=== PATIENT | female | born 1980 | race Caucasian/White ===

== ENCOUNTER 2025-05-05 08:16 | Outpatient (REF) | payer BC, SELFPAY | END 2025-05-05 08:17 | disposition home or self-care (01) | LOC: HO.LAB 08:16 | PROVIDERS: PCP Internal Medicine; Visit Provider Nurse Practitioner | DX: G43.709 Chronic migraine without aura, not intractable, without status migrainosus (principal) | CPT/HCPCS: 36415; 85652; 86141 ==

== ENCOUNTER 2025-05-05 08:16 | Outpatient (AMB) | payer BC, SELFPAY ==
--- OUTSIDE RECORDS SUMMARY | 2024-12-22 07:15 | XMS_ITS ---
Author Organization [facility] Address [address] [place] [address] Care Team Providers Care Repair Department Supervisor Name Role Phone CARLOS BARCENAS Unavailable [phone] Encounters Encounter Location Date Provider Diagnosis [facility] [address] [place] [address] 12/22/2024 CARLOS BARCENAS Plan Of Treatment Next Appt Details Provider Name:CARLOS BARCENAS, 05/26/2025 02:45:00 PM, [address], [place], [address], Progress Notes * Glenis MENCHACADOB: 3 (44 yo F)Acc No.[id number]:12/22/2024 Patient: Nettie Glenis SCHMIDT Provider: Josefina MATHEW PA-C :1980 A ge:44 Y S ex:Female Date:12/22/2024 Address:[address] [place], [place] [id number] Subjective: * Chief Complaints: * * Medical History: Objective: * Vitals: Assessment: Plan: * Treatment: * Images: Billing Information: * Visit Code: * Procedure Codes: * Electronic signature of HANNAH BARCENAS PA-C on 05/05/2025 at 08:32 AM EDT Sign off status: Pending * Provider: Josefina MATHEW PA-C Date: 0 12/22/2024 Generated for Mitchel rojo/Tamir/eTransmitting on: 0 05/05/2025 08:32 AM EDT
[2025-05-05 08:28] VITALS: BP 124/82; PULSE 72; RESP 16; O2SAT 98; BMI 28.1
--- NOTE | 2025-05-05 08:28 | MHC.OFFVIS ---
Vital Signs 05/05/25 08:28 Height 5 ft 9 in Weight 190 lb BMI 28.1 BP 124/82 Blood Pressure Location Rt brachial Position Sitting Respiration 16 Pulse 72 Pulse Oximetry (%) 98 Intake Visit Reasons: migraine Bench Hand Machine Required: No Allergies acetaminophen (From Percocet) Allergy (Unknown, Verified 05/05/25 08:29) Unknown oxycodone (From Percocet) Allergy (Unknown, Verified 05/05/25 08:29) Unknown HPI Comments Details: Glenis is a 44-year-old female patient with a past medical history of obesity and anxiety who was presenting to the clinic for a headache evaluation. She tells me that her headaches began at age 16 or 17 however she did start on control shortly thereafter and had no significant headaches for many years. Approximately 1 year ago, she was taken off of her oral control and she began having headaches on a regular basis. She is currently experiencing headaches approximately 5 days per week lasting the majority of the day. Headaches can be severe and can awaken her from sleep. Her pain is generally retro-orbital and occipital and felt as a pounding pain. Headaches can be unilateral but often are bilateral. During the headache when her pain is intense she will experience blurry vision. She does not have any visual auras. She does however have some light sensitivity and nausea during the headaches. She denies any tinnitus or any worsening of her pain with laying down. Headaches are aggravated by any physical activity. In general, her headaches improve when she rests and lies down. She has tried sumatriptan in the past which caused profound nausea. She has been using Excedrin with some improvement of her headaches. She has been using Excedrin 5 days per week on average. She tells me that she has a strong family history of brain aneurysms. Her grandmother and 5 of her grandmother's sister's had aneurysms. She also has aneurysm history on the opposite side of her family. She also has a strong history of autoimmune thyroid disease. Her thyroid studies however have been normal through primary care. Headache characteristics: Time of onset:13-14 years old Location: Retro-orbital and occipital Radiation: Neck Positional component: Layng down helps her headaches Character: Pounding Severity: Can reach 10/10 and awaken her from sleep Duration: We will ask the majority of a 24 hour period Frequency: 5 days per week Acute aggravating factors: Stress and bright lights Acute relieving factors: Rest and dark Associated symptoms:Light sensitivity and nausea Aura: No Headache triggers: Unknown, possibly light Relation to menses: No. Periods have been regular Other related background information: Sleep: Notes that sleep is horrible because headaches awake her from sleep. 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 Glasses rx updated. Wears blue light Last dental visit: Within the last 6 months. Wears a guard manager for clenching History of head injury: No Family planning considerations: No Past medication trials: Sumatriptan- Made her very nauseated Ibuprofen- Works to reduce her headaches Excedrine- Works to reduce her headaches Prior workup: None PFSH Medical History (Updated 05/05/25 @ 09:15 by Tammy Garza CNP) HLD (hyperlipidemia) Migraine Family History (Updated 05/05/25 @ 08:34 by Doris Jarvis [facility]) Mother Thyroid disease Father Thyroid disease Review of Systems Const All systems reviewed & are unremarkable except as noted in HPI and below Physical Exam Vital Signs: Last Vital Signs Pulse 72 05/05/25 08:28 Resp 16 05/05/25 08:28 BP 124/82 05/05/25 08:28 Pulse Ox 98 05/05/25 08:28 BMI result Body Mass Index 28.1 Const General: cooperative, healthy appearing, comfortable and no acute distress Nutritional Appearance: well nourished Orientation/consciousness: patient oriented x3 Limitations: no limitations HEENT Head: Yes normal to inspection, Yes normocephalic and Yes other (Tenderness to the temporalis muscles bilaterally with palpation) Eyes General: appearance normal, both eyes and all related structures Visual Maguire: normal visual maguire by confrontation Alignment and Position: alignment normal Periorbital: periorbital findings normal Eyelids: Yes eyelids normal Conjunctivae: conjunctivae normal Sclerae: sclerae normal Back/Spine/Pelvis Other: Significant bilateral upper trapezius tightening. No obvious trigger points. Neuro General: patient oriented x3 and deep tendon reflexes 2+ bilaterally Cranial nerves: Yes CN's II-XII intact bilaterally and Yes Facial sensation intact/muscles of mastication intact Cognition (Neuro): normal cognition Gait exam (Neuro): Normal gait present Motor exam (neuro): 5/5 motor strength present throughout and no tremor noted Sensory Exam: double simultaneous stimulation for sensation normal Romberg Test: Negative Pupils: Normal pupillary reactivity/response: bilateral Psych Appearance: grossly normal Mental Status: mental status grossly normal Speech and movement: Normal speech and movement present and Clear speech present Affect: normal affect Attitude: cooperative Thought process: Normal thought process present Thought content: Normal thought content present Insight: Good insight present (Psych) Judgement: Good judgement present (Psych) Assessment & Plan Assessment & Plan (1) Worsening headaches: Code(s): R51.9 - Headache, unspecified Category: Medical (2) Chronic migraine without aura without status migrainosus, not intractable: Code(s): G43.709 - Chronic migraine without aura, not intractable, without status migrainosus Category: Medical Plan Glenis is a 44-year-old female patient with a past medical history of obesity and anxiety who was presenting to the clinic for a headache evaluation. Headaches seemingly got worse after coming off of her control which she was on for many years. Her sleep is also quite poor which is also likely playing a role. She also has significant tightness of her upper trapezius muscles which may again be contributing. She has not tolerated sumatriptan well. Excedrin does work for her but only has marginal benefit. We discussed several different options for treatment of headaches including physical therapy, neuromodulator devices, nutraceuticals, and some first-line therapies including tricyclic antidepressants, antihypertensives, and antiepileptics. She would fifst like to try some nutraceuticals options. I will send for a trial of magnesium 400 mg daily and riboflavin 400 mg daily. I will also send a prescription for amitriptyline 10 mg nightly which she would like to try if the magnesium and riboflavin make no difference after 1 month of use. Because she has a strong family history of aneurysm and her headaches are awakening her from sleep. I will obtain imaging including an MRI and MRA. I will also include an MRV to rule out sinus stenosis. IIH can not be ruled out however she did have a recent normal eye exam and her headaches are not significantly positional. She does however have some blurry vision with her headaches and she is a middle aged female with an elevated BMI. Her exam did reveal some tenderness to her temporalis muscles. This may be a result of clenching which she did note in her history. I will however perform inflammatory markers to rule out any possibility of GCA. - MRI and MRA -ESR and CRP -Reduce excedrine use to no more than 3 days per week -start a trial of magnesium oxide 400 mg daily and riboflavin 400 mg daily -if no benefit from nutraceuticals, she will start amitriptyline 10 mg daily -follow up in 2 months or sooner if needed Orders: Orders CRP High Sensitivity Today R51.9 - Headache, unspecified Erythrocyte Sedimentation Rate Today R51.9 - Headache, unspecified Coding Level of Care Code New Pt Level 4 (86749) Diagnoses Worsening headaches R51.9 Chronic migraine without aura without status migrainosus, not intractable G43.709
--- OUTSIDE RECORDS SUMMARY | 2025-05-05 08:32 | XMS_ITS | Patient Health Record ---
Author Organization [facility] [address] Address [address] [place] [address] Care Team Providers Care Emt/Dispatcher Name Role Phone CARLOS BARCENAS Unavailable [phone] KARTHIKVENKATESH Pearson Unavailable [phone] Allergies Allergen (clinical drug ingredient) Drug/Non Drug Allergy documented on EMR Reaction Allergy Type Onset Date Status covid vaccine (uncoded) hives and chest pain Allergy Active Vaccine product containing Influenza virus antigen (medicinal product) flu shot (uncoded) hives Allergy Ac tive acetaminophen / oxycodone Percocet hives Drug Allergy Active Results Component Value Reference Range Notes TESTOSTERONE, TOTAL, MS Reviewed date:09/19/2024 07:49:43 AM Interpretation: Performing Lab:Neeru SAMS/[facility] [address], [id number] Dario Galvez M.D.,PhD Notes/Report: FASTING: YES FASTING:YES TESTOSTERONE, TOTAL, MS 9 2-45 ng/dL For additional information, please refer to http://education.The Price Wizards/faq/ TotalTestosteroneLCMSMSFAQ1 65 (This link is being provided for informational/ educational purposes only.) This test was developed and its analytical performance characteristics have been determined by [facility] [place], [place]. It has not been cleared or approved by the U.S. Food and Drug Administration. This assay has been validated pursuant to the CLIA regulations and is used for clinical purposes. ESTROGEN, TOTAL, SERUM Reviewed date:09/19/2024 07:49:48 AM Interpretation: Performing Lab:Neeru MACDONALD/[facility],[address] [address], Kyles FordEkmibhevkhRD[address] Ruchi Chau MD,PhD,DEDE Notes/Report: FASTING:YES FASTING: YES ESTROGENS, TOTAL, IA 86 Reference Ranges for Total Estrogen: Follicular Phase: 51-601 Luteal Phase: 87-1194 Postmenopausal: < or = 214 VITAMIN D,25-OH,TOTAL,IA Reviewed date:09/16/2024 08:01:36 AM Interpretation: Performing Lab:NLOfidium, [facility] Bola Fowler Notes/Report: FASTING: YES FASTING:YES VITAMIN D,25-OH,TOTAL,IA 21 30-100 ng/mL Vitamin D Status 25-OH Vitamin D: Deficiency: <20 ng/mL Insufficiency: 20 - 29 ng/mL Optimal: > or = 30 ng/mL For 25-OH Vitamin D testing on patients on D2-supplementation and patients for whom quantitation of D2 and D3 fractions is required, the QuestAssureD(TM) 25-OH VIT D, (D2,D3), LC/MS/MS is recommended: order code 40162 (patients >2yrs). See Note 1 Note 1 For additional information, please refer to http://education.MEDOP/faq/OTL019 (This link is being provided for informational/ educational purposes only.) VITAMIN B12 Reviewed date:09/18/2024 07:43:06 AM Interpretation: Performing Lab:Oncothyreon, [facility] Bola Fowler Notes/Report: FASTING:YES FASTING: YES VITAMIN B12 932 022-3104 pg/mL CBC (INCLUDES DIFF/PLT) Reviewed date:09/16/2024 08:01:36 AM Interpretation: Performing Lab:Oncothyreon, [facility] Bola Fowler Notes/Report: FASTING:YES FASTING: YES WHITE BLOOD CELL COUNT 8.1 3.8-10.8 Thousand/ uL RED BLOOD CELL COUNT 4.05 3.80-5.10 Million/uL HEMOGLOBIN 11.6 11.7-15.5 g/dL HEMATOCRIT 35.2 35.0-45.0 % MCV 86.9 80.0-100.0 fL MCH 28.6 27.0-33.0 pg MCHC 33.0 32.0-36.0 g/dL For adults, a slight decrease in the calculated MCHC value (in the range of 30 to 32 g/dL) is most likely not clinically significant; however, it should be interpreted with caution in correlation with other red cell parameters and the patient's clinical condition. RDW 12.1 11.0-15.0 % PLATELET COUNT 254 140-400 Thousand/uL MPV 10.6 7.5-12.5 fL ABSOLUTE NEUTROPHILS 6197 4734-8458 cells/uL ABSOLUTE LYMPHOCYTES 5193 560-4832 cells/uL ABSOLUTE MONOCYTES 405 200-950 cells/uL ABSOLUTE EOSINOPHILS 81 15-500 cells/uL ABSOLUTE BASOPHILS 41 0-200 cells/uL NEUTROPHILS 76.5 LYMPHOCYTES 17.0 MONOCYTES 5.0 EOSINOPHILS 1.0 BASOPHILS 0.[address] METABOLIC PANE L Reviewed date:09/16/2024 08:01:36 AM Interpretation: Performing Lab:NL2, [facility] [address] [place], [place] [address] Bola Fowler Notes/Report: FASTING:YES FASTING: YES GLUCOSE 95 65-99 mg/dL Fasting reference interval UREA NITROGEN (BUN) 24 7-25 mg/dL CREATININE 0.65 0.50-0.99 mg/dL EGFR 113 > OR = 60 mL/min/1.73m2 BUN/CREATININE RATIO SEE NOTE: 6-22 (calc) Not Reported: BUN and Creatinine are within reference range. SODIUM 137 135-146 mmol/L POTASSIUM 4.2 3.5-5.3 mmol/L CHLORIDE 103 98-110 mmol/L CARBON DIOXIDE 25 20-32 mmol/L CALCIUM 8.8 8.6-10.2 mg/dL PROTEIN, TOTAL 6.4 6.1-8.1 g/dL ALBUMIN 4.1 3.6-5.1 g/dL GLOBULIN 2.3 1.9-3.7 g/dL (calc) ALBUMIN/GLOBULIN RATIO 1.8 1.0-2.5 (calc) BILIRUBIN, TOTAL 0.3 0.2-1.2 mg/dL ALKALINE PHOSPHATASE 38 31-125 U/L AST 19 10-30 U/L ALT 13 6-29 U/L IRON, TIBC AND FERRITIN PANE L Reviewed date:09/16/2024 08:01:36 AM Interpretation: Performing Lab:KATY2, [facility] [address] Mariondacia Waggoner Janeth Notes/Report: FASTING:YES FASTING: YES IRON, TOTAL 70 40-190 mcg/dL IRON BINDING CAPACITY 351 250-450 mcg/dL (heaven c) % SATURATION 20 16-45 % (calc) FERRITIN 37 16-232 ng/mL LIPID PANEL, STANDARD Reviewed date:09/16/2024 08:01:36 AM Interpretation: Performing Lab:NL2, [facility] [facility] Rosaline [facility] Notes/Report: FASTING:YES FASTING: YES CHOLESTEROL, TOTAL 240 <200 mg/dL HDL CHOLESTEROL 64 > OR = 50 mg/dL TRIGLYCERIDES 126 <150 mg/dL LDL-CHOLESTEROL 151 Reference range: <100 Desirable range <100 mg/dL for primary prevention; <70 mg/dL for patients with CHD or diabetic patients with > or = 2 CHD risk factors. LDL-C is now calculated using the Bj-Anastacia calculation, which is a validated novel method providing better accuracy than the Friedewald equation in the estimation of LDL-C. Bj SALGUERO et al. JOSE A. 2013;310(19): 5522-4523 (http://education.Zigabid.com/faq/KKS706) CHOL/HDLC RATIO 3.8 <5.0 (calc) NON HDL CHOLESTEROL 176 <130 mg/dL (calc) For patients with diabetes plus 1 major ASCVD risk factor, treating to a non-HDL-C goal of <100 mg/dL (LDL-C of <70 mg/dL) is considered a therapeutic option. T3, FREE Reviewed date:09/16/2024 08:01:36 AM Interpretation: Performing Lab:KATY2, [facility] Marion Rosaline Han Notes/Report: FASTING:YES FASTING: YES T3, FREE 3.3 2.3-4.2 pg/mL TSH Reviewed date:09/16/2024 08:01:36 AM Interpretation: Performing Lab:NL2, [facility] [place] [id number] [place] [address] Rosaline [facility] Notes/Report: FASTING:YES FASTING: YES TSH 2.16 Reference Range > or = 20 Years 0.40-4.50 Ranges First trimester 0.26-2.66 Second trimester 0.55-2.73 Third trimester 0.43-2.91 T4, FREE Reviewed date:09/16/2024 08:01:36 AM Interpretation: Performing Lab:NL2, [facility] [place] [id number] Notes/Report: FASTING:YES FASTING: YES T4, FREE 1.1 0.8-1.8 ng/dL DHEA SULFATE Reviewed date:09/16/2024 08:01:36 AM Interpretation: Performing Lab:NL2, [facility] [place] [id number] [place] [address] Notes/Report: FASTING:YES FASTING: YES DHEA SULFATE 48 15-205 mcg/dL HS CRP Reviewed date:09/16/2024 08:01:36 AM Interpretation: Performing Lab:NL2, [facility] [address] Notes/Report: FASTING:YES FASTING: YES HS CRP 5.3 Reference Range Optimal <1.0 Jealberta PS et al. Endocr Pract.2017;23(Suppl 2):1-87. For ages >17 Years: hs-CRP mg/L Risk According to AHA/CDC Guidelines <1.0 Lower relative cardiovascular risk. 1.0-3.0 Average relative cardiovascular risk. 3.1-10.0 Higher relative cardiovascular risk. Consider retesting in 1 to 2 weeks to exclude a benign transient elevation in the baseline CRP value secondary to infection or inflammation. >10.0 Persistent elevation, upon retesting, may be associated with infection and inflammation. Aiden TA, Torin GA, Stone RW, et al. Markers of inflammation and cardiovascular disease: application to clinical and public health practice: A statement for healthcare professionals from the Centers for Disease Control and Prevention and the [place] [employer] Association. Circulation 2003; 107(3): 499-511. ABHAY SCREEN, IFA, W/REFL TITE R AND PATTERN Reviewed date:09/18/2024 04:03:26 PM Interpretation: Performing Lab:NL2, [facility] [address] [facility] Bola Fowler Notes/Report: FASTING:YES FASTING: YES ABHAY SCREEN, IFA NEGATIVE NEGATIVE ABHAY IFA is a first line screen for detecting the presence of up to approximately 150 autoantibodies in various autoimmune diseases. A negative ABHAY IFA result suggests an ABHAY-associated autoimmune disease is not present at this time, but is not definitive. If there is high clinical suspicion for Sjogren's syndrome, testing for anti-SS-A/Ro antibody should be considered. Anti-Kamila-1 antibody should be considered for clinically suspected inflammatory myopathies. AC-0: Negative International Consensus on ABHAY Patterns (https://doi.org/10.1515/cc xd-3387-9582) For additional information, please refer to http://education.MEDOP/faq/SVQ162 (This link is being provided for informational/ educational purposes only.) Reason For Referral Reason evaluate & treat m ay benefit from cortisone injection Diagnosis 1 Tendinopathy (M67.90 ) Diagnosis 2 Degenerative disc di sease, thoracic (M51.34) Referral Organization [facility] KELLY CABALLERO Referring Provider First Name CARLOS Referring Provider Last Name SWAPNA Referring Provider Speciality Internal M edicine Referred Provider Specialty Orthopedic S urgery General Notes Zara Serrano 12/01 03:18:54 PM > form filled out and faxed over [employer]ilango Hanson.[phone], [phone] Clinical Notes Halie Mc 2024 09:41:59 AM >Scheduled 01/01/25 at 145PM Eliane Brown in [place]. Referral Priority Routine Reason Migraines Diagnosis 1 Episodic migraine (G 43.909) Referral Organization [facility] KELLY CABALLERO Referring Provider First Name CARLOS Referring Provider Last Name SWAPNA Referring Provider Speciality Internal M edicine Referred Provider Specialty Neurology General Notes Please refer to [facility], [address] [place] [address], [address], [place] [address], [phone], [phone] Clinical Notes Graciela Aguilera 07/2025 10:15:09 AM > pt requesting a call once referral sent.Alexandru Earl Adam 04/23/2025 03:18:56 PM > I called pt, she was booked on may 05 Referral Priority Stat Reason Evaluate & Treat W art of left hand, non-healing Diagnosis 1 Wart of hand (B07.9) Referral Organization [facility]ALLERO Referring Provider First Name CARLOS Referring Provider Last Name SWAPNA Referring Provider Speciality Internal M edicine Referred Provider Specialty Dermatology General Notes Margi Salter 0 04/13/2025 02:27:07 PM > Referral to [facility], p. [phone], f. [phone] Referral Priority Routine Medications Medication SIG (Take, Route, Frequency, Duration) Notes Start Date End Date Status Escitalopram Oxalate 5 MG TAKE 1 TABLET BY MOUTH EVERY DAY; Duration: 90 Active Wegovy 1 MG/0.5ML 1 mg; Duration: 30 days Active SUMAtriptan Succinate 25 MG 25 mg prn, additional dose 2 hours later prn Orally daily; Duration: 15 days 06/10/2024 Active Rosuvastatin Calcium 10 MG 1 tablet Orally Once a day; Duration: 90 days Active Contrave 8-90 MG 2 tablets Orally Twi ce a day; Duration: 30 days 11/17/2024 Active Omeprazole 40 MG TAKE 1 CAPSULE BY MO UT EVERY DAY 30 MINUTES BEFORE MORNING MEAL FOR 90 DAYS; Duration: 90 Active Wegovy 0.5 MG/0.5ML INJECT 0.5 MG SUBCUTANEOUSLY ONCE WEEKLY; Duration: 84 Active Social History Tobacco Use: Social History Observation Description Date Details (start date - stop date) Never Smoker NA - NA Tobacco Use/Smoking Question Answer Notes Are you a nonsmoker Section Notes: Tob: denies current use alcohol: socially drug: denies caffeine: coffee daily exercise: enjoys 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: denies 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 alcohol: socially drug: denies caffeine: coffee daily exercise: enjoys 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: denies current use alcohol: socially drug: denies caffeine: coffee daily exercise: enjoys 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: denies current use alcohol: socially drug: denies caffeine: coffee daily exercise: enjoys 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: denies current use alcohol: socially drug: denies caffeine: coffee daily exercise: enjoys walking 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 Tob: denies current use alcohol: socially drug: denies caffeine: coffee daily exercise: enjoys walking 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 Tob: denies current use alcohol: socially drug: denies caffeine: coffee daily exercise: enjoys walking 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 Tob: denies current use alcohol: socially drug: denies caffeine: coffee daily exercise: enjoys 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: denies current use alcohol: socially drug: denies caffeine: coffee daily exercise: enjoys 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: denies current use alcohol: socially drug: denies caffeine: coffee daily exercise: enjoys 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: denies current use alcohol: socially drug: denies caffeine: coffee daily exercise: enjoys 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: denies current use alcohol: socially drug: denies caffeine: coffee daily exercise: enjoys 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: denies current use alcohol: socially drug: denies caffeine: coffee daily exercise: enjoys 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: denies current use alcohol: socially drug: denies caffeine: coffee daily exercise: enjoys 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: denies current use alcohol: socially drug: denies caffeine: coffee daily exercise: enjoys 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: denies current use alcohol: socially drug: denies caffeine: coffee daily exercise: enjoys walking 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 Tob: denies current use alcohol: socially drug: denies caffeine: coffee daily exercise: enjoys walking 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 Tob: denies current use alcohol: socially drug: denies caffeine: coffee daily exercise: enjoys walking 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 Tob: denies current use alcohol: socially drug: denies caffeine: coffee daily exercise: enjoys walking 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 Tob: denies current use alcohol: socially drug: denies caffeine: coffee daily exercise: enjoys 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: denies current use alcohol: socially drug: denies caffeine: coffee daily exercise: enjoys 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: denies 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 use alcohol: socially drug: denies caffeine: coffee daily exercise: enjoys walking 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[employer] Problems Problem Type SNOMED Code ICD Code Onset Dates Problem Status W/U Status Risk Notes Problem Vitamin D deficiency (37505156) Vitamin D deficiency, unspecified (E55.9) Active confirmed Problem Overweight (414553457) Overweight (E66.3) Active confirmed Problem Obesity (601958041) Other obesity (E66.8) Active confirmed Problem Mixed hyperlipidemia (130397298) Mixed hyperlipidemia (E78.2) Active confirmed Problem Shoulder joint pain (578569181) Shoulder pain, unspecified chronicity, unspecified laterality (M25.519) Active confirmed Problem Hyperlipidaemia (80729178) Hyperlipidemia, unspecified hyperlipidemia type (E78.5) Active confirmed Problem Shoulder joint pain (215074236) Right shoulder pain, unspecified chronicity (M25.511) Active confirmed Problem Acquired hypothyroidism (792961265) Acquired hypothyroidism (E03.9) Active confirmed Problem Anxiety (19569402) Anxiety (F41.9) Active confi rmed Problem Hyperlipoproteinemia (8343560) 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) Active confirmed Problem Vitamin D deficiency (02606708) Vitamin D deficiency (E55.9) Active confirmed Problem Alopecia (00858251) Hair loss (L65.9) Active co nfirmed Problem Gastroesophageal reflux disease without esophagitis (046499709) Gastroesophageal reflux disease without esophagitis (K21.9) Active confirmed Problem Obesity (948258775) Obesity (BMI 30-39.9) (E66.9) Active confirmed Problem Obese class I (656595963902477) BMI 33.0-33.9,adult (Z68.33) Active confirmed Problem BMI 30+ - obesity (653076200) BMI 32.0-32.9,adult (Z68.32) Active confirmed Problem Degeneration of thoracic intervertebral disc (87609468) Degenerative disc disease, thoracic (M51.34) Active confirmed Problem Vitamin B>12< deficiency anaemia (93144755) Anemia due to vitamin B12 deficiency, unspecified B12 deficiency type (D51.9) Active confirmed Problem Body mass index 30.0 0 to 34.99 (371630131494207) BMI 31.0-31.9,adult (Z68.31) Active confirmed Problem Body mass index 30+ - obesity (543842500) BMI 30.0-30.9,adult (Z68.30) Active confirmed Problem Tension-type headach e (705547072) Acute intractable tension-type headache (G44.201) Active confirmed Problem Gastroesophageal reflux disease (990348277) GERD (gastroesophageal reflux disease) (K21.9) Active confirmed Problem Hyperlipidemia (03633301) Hyperlipidemia (E78.5) Active confirmed Problem Episodic migraine (784879036678440) Episodic migraine (G43.909) Active confirmed Problem Hypophosphatemia (6041306) Hypophosphatemia (E83.39) Active confirmed Problem Laboratory test result abnormal (680166727) Low liver alkaline phosphatase level (R74.8) Active confirmed Problem Tendinopathy (64685466) Tendinopathy (M67.90) Active confirmed Vital Signs Heart Rate 102 /min 04/13/2025 Oximetry 98 % 04/13/2025 Blood pressure diastolic 88 mm Hg 04/13/2025 Height 69 in 04/13/2025 Blood pressure systolic 132 mm Hg 04/13/2025 Weight 221.7 lbs 04/13/2025 BMI 32.74 kg/m2 04/13/2025 Encounters Encounter Location Date Provider Diagnosis [facility] [address] [place], [place] 05/08/2024 CARLOS BARCENAS BMI 29.0-29.9,adult Z68.29 ; Overweight E66.3 ; Gastroesophageal reflux disease without esophagitis K21.9 ; Anxiety F41.9 ; Nutritional counseling Z71.3 and Mixed hyperlipidemia E78.[address] [place] [address] 05/14/2024 VENKATESH ANGELES Acute intractable tension-type headache G44.201 and Acute right otitis media H66.[address] [place] [address] 06/10/2024 CARLOS BARCENAS Overweight E66.3 ; Wellness examination Z00.00 ; BMI 29.0-29.9,adult Z68.29 ; Gastroesophageal reflux disease without esophagitis K21.9 ; Anxiety F41.9 ; Nutritional counseling Z71.3 ; Mixed hyperlipidemia E78.2 ; Pain, joint, shoulder, right M25.511 and Episodic migraine G43.[address] [address] 07/28/2024 CARLOS BARCENAS Overweight E66.3 ; B IA 29.0-29.9,adult Z68.29 ; Gastroesophageal reflux disease without esophagitis K21.9 ; Anxiety F41.9 ; Mixed hyperlipidemia E78.2 ; Pain, joint, shoulder, right M25.511 ; Episodic migraine G43.909 and Nutritional counseling Z71.[address] [address] 09/10/2024 CARLOS BARCENAS Overweight E66.3 ; B IA 29.0-29.9,adult Z68.29 ; Anxiety F41.9 ; Mixed hyperlipidemia E78.2 ; Pain, joint, shoulder, right M25.511 ; Episodic migraine G43.909 ; Nutritional counseling Z71.3 ; Hair loss L65.9 and Hyperlipidemia, unspecified hyperlipidemia type E78.[address] [address] 11/17/2024 CARLOS BARCENAS Anxiety F41.9 ; Pain , joint, shoulder, left M25.512 ; Mixed hyperlipidemia E78.2 ; Episodic migraine G43.909 ; Nutritional counseling Z71.3 ; Hair loss L65.9 ; Hyperlipidemia, unspecified hyperlipidemia type E78.5 and BMI 32.0-32.9,adult Z68.[address] [address] 12/24/2024 CARLOS BARCENAS Obesity (BMI 30-39.9 ) E66.9 ; BMI 33.0-33.9,adult Z68.33 ; Pain, joint, shoulder, left M25.512 ; Anxiety F41.9 ; Mixed hyperlipidemia E78.2 ; Episodic migraine G43.909 ; Nutritional counseling Z71.3 ; Hair loss L65.9 and Encounter for examination of blood pressure without abnormal findings Z01.[address] [place] [address] 03/04/2025 CARLOSMaster BARCENAS Obesity (BMI 30-39.9 ) E66.9 ; BMI 33.0-33.9,adult Z68.33 ; Pain, joint, shoulder, left M25.512 ; Anxiety F41.9 ; Mixed hyperlipidemia E78.2 ; Episodic migraine G43.909 ; Nutritional counseling Z71.3 ; Hair loss L65.9 and Encounter for examination of blood pressure without abnormal findings Z01.[address] [place] [address] 04/13/2025 CARLOS BARCENAS Obesity (BMI 30-39.9 ) E66.9 ; BMI 32.0-32.9,adult Z68.32 ; Pain, joint, shoulder, left M25.512 ; Anxiety F41.9 ; Mixed hyperlipidemia E78.2 ; Episodic migraine G43.909 ; Nutritional counseling Z71.3 ; Hair loss L65.9 and Encounter for examination of blood pressure without abnormal findings Z01.30 [facility] [address] 05/14/2024 CARLOS BARCENAS [facility] [address] 06/10/2024 CARLOS BARCENAS [facility] [address] [place] [address] 07/07/2024 CARLOS BARCENAS Overweight E66.3 [facility] [address] [facility] [address] [place] [address] 07/18/2024 CARLOS BARCENAS Gastroesophageal ref lux disease without esophagitis K21.9 [facility] [address] CARL[facility] [address] [place] [address] 07/28/2024 CARLOSMaster BARCENAS [facility] [address] [place] [address] 09/08/2024 CARLOS BARCENAS [facility] [address] [place] [address] 09/16/2024 CARLOS BARCENAS [facility] [address] [address] 11/17/2024 CARLOS BARCENAS [facility] [address] [place] [address] 11/17/2024 CARLOS BARCENAS Shoulder pain, unspe cified chronicity, unspecified laterality M25.[address] [place] [address] 02/02/2025 CARLOS BARCENAS [facility] [address] [place] [address] 02/24/2025 CARLOS BARCENAS [facility] [address] [place] [address] 03/31/2025 CARLOS BARCENAS [facility] [address] [place] [address] 04/13/2025 CARLOS BARCENAS [facility] [address] [place] [address] 04/17/2025 CARLOS BARCENAS [facility] [address] [place] [address] 04/23/2025 CARLOS BARCENAS Obesity (BMI 30-39.9 ) E66.9 [facility] [address] [place] [address] 05/04/2025 CARLOS BARCENAS [facility] [address] [place] [address] 11/14/2024 CARLOS BARCENAS [facility] [address] [place] [address] 02/02/2025 CARLOS BARCENAS [facility] [address] [place] [address] 02/02/2025 CARLOS BARCENAS [facility] [address] [place] [address] 02/02/2025 CARLOS BARCENAS [facility] [address] [place] [address] 02/02/2025 CARLOS BARCENAS [facility] [address] [place] [address] 02/02/2025 CARLOS BARCENAS [facility] [address] [place] [address] 02/02/2025 CARLOS BARCENAS [facility] [address] [place] [address] 02/02/2025 CARLOS BARCENAS Assessments Encounter Date Diagnosis (ICD Code) Assessment Notes Treatment Notes Treatment Clinical Notes Section Notes 05/08/2024 BMI 29.0-29.9,adult (ICD-10 - Z68.29) 10/03/22: Weight 211, BMI 31.16- educated extensively on lifestyle modifications including high-protein, low carbohydrate, healthy fat, exercise, water intake, sleep hygiene, and stress relief. Patient will work on life so modifications of the next four weeks. Interested in weight loss medications. Start with Topamax 25 mg. Patient educated cannot drink alcohol on this medication. Most recent labs reviewed showing hyperlipidemia, without any insulin/diabetes concern. Patient educated on fish oil, diet, exercise. At next visit, will obtain EKG, and start phentermine 15 mg if EKG without concern. No concern for at this time. 10/31/22: weight 212, BMI 31.3- educated on lifestyle modifications. Patient went to [place], and then went to [place] and states that she has been traveling a lot and drinking more than usual. She is ready to get back on track. She has been walking more recently and focusing on portion control as well as eating earlier in the evening. She does feel some appetite suppression on metformin but is interested in starting an additional medication. She did not tolerate Topamax well. EKG's office today within normal limits. Will start phentermine 15 mg. Patient educated on side effects as well as proper use. Will follow-up in four weeks, sooner as needed.Encouraged to increase water intake. 12/05/22: weight 211.5, BMI 31.23- educated extensive and lifestyle modifications. Patient was congratulated on efforts. Taking phentermine 15 mg with compliance, without any side effects. Interested in increasing dose of 30 mg. If patient continues to have minimal weight loss, could consider GLP-1 injection such as Wegovy next visit, as at that time, patient will have three consecutive months of trying to lose weight. Patient understanding and aware of this plan. Educated to increase more formal exercise. 01/09/2023: Weight 207.3, BMI 30.61-patient congratulated on efforts, has been losing some weight. Taking phentermine 30 mg with compliance, without any side effects. Is noticing more appetite suppression on 30 mg then 15. Interested in increasing dose to 37.5. We did have a discussion about possibly switching to GLP-1 such as Wegovy, but having difficulty with supply at this time therefore we will continue phentermine 37.5 at this time. Did talk about compounded semaglutide as well, but patient states she will find it difficult to come to the office once weekly. Will increase to phentermine 37.5, and add Topamax. Patient also does admit to occasional headaches and history of migraines and this could benefit that as well. Educated on proper use, as well as side effects. 02/08/2023: Weight 205, BMI 30.27. Patient congratulated on effort. Taking phentermine 37.5, and Topamax. Noticing some appetite suppression but not significant effect. Interested in tapering off, and starting a different medication such as GLP-1 injection. Patient aware of the national shortage difficulty, but is interested in Saxenda. Did discuss proper use, and side effects of medication. We will taper phentermine, and start Saxenda. 03/12/2023: Weight 207.1, BMI 30.58. Patient expresses frustration given her current circumstances. She has not been able to obtain Saxenda from the pharmacy despite insurance approval. Currently taking phentermine 15 mg with no effect despite maintaining lifestyle modifications. Goals reevaluated and discussed incorporating increased intensity exercise in addition to walking as tolerated. Contacted [facility] pharmacy in [place] who states they cannot dispense Saxenda secondary to supply issues. Called [facility] specialty pharmacy, and Saxenda continues to be on backorder until unknown date. Will send to other [facility] pharmacy in [place], but patient will continue to call pharmacies to see who has availability, and happy to send to pharmacy when she can find one. She is understanding and aware. 04/12/2023: Weight 209 pounds, BMI 30.86. Patient did gain weight, but upon review of body composition scan she did gain 3 pounds of muscle, and lost 1 pound of fat. She was congratulated. Has been working hard with exercise and focusing on portion control but she states that she is going in the opposite direction because she is off of phentermine. Is interested in weight loss medications, tried sending Saxenda but was unable to obtain due to supply concern. We will start compounded semaglutide 0.25 mg today, and follow-up in 4 weeks. Also sending for Wegovy 0.5 mg and she is going to call the pharmacy to see if she can find although she is aware of the national shortage. 07/24/2023: Weight 199.6, BMI 29.47. Patient is welcome back to the practice, has not followed up since April due to insurance concerns, but is now following with us today. Patient was doing really well on semaglutide, but feels like she is now plateauing. Taking 0.5 mg, but interested in increasing to 1 mg. Will provide semaglutide 1 mg today, and submit for Wegovy 1 mg.Encouraged to continue with lifestyle modifications. 12/24/2023: Weight 204.1, BMI 30.14. Patient has gained since visit,, trying to get back on track. Was taking Wegovy 1 mg doing well, has been off for 6 weeks, so we will try to get her back on 1 mg and if not we will increase her to Wegovy 1.7 mg. Educated on proper use, side effects, long-term risk. 03/05/2024: Weight 203, BMI 30. Taking Wegovy 1.7 mg, will continue for another 4 weeks, and then consider increasing to 2.4 mg. If still at a plateau, consider switching over to Zepbound. Implementing more resistance training, and higher protein. Body scan reviewed today 04/02/2024: Weight 199, BMI 29: Patient congratulated on effort, continuing to lose slow, steady weight. Continue with Wegovy 1.7 mg. Encouraged to increase more resistance training, protein, and water intake. Follow-up in 4 weeks, could consider increasing Wegovy to 2.4 mg, or continuing with dose. 05/08/2024: Weight 198, BMI 29.25. Patient continuing to walk. Exercise otherwise limited due to right shoulder pain for which she is following with a chiropractor. Continue Wegovy but increase to 2.4 mg. If no improvement, consider switching over to Zepbound. Following up for physical in 1 month. #Patient also has some concerns regarding thinning of hair. Thyroid within normal limits. States that it is her also in her family. Did discuss possible dermatology referral, or PRP injections through our [facility]. # Migraines: X 3 months. Adequate nutrition/hydration. Stopped control 3 months ago at that time. When she was 16 she was put on control due to migraines. Following with her [facility] to potentially try getting back on it again. Ibuprofen as needed, no red flag symptoms. If symptoms persist, could consider abortive migraine management/imaging. #Patient taken Lexapro. No concerns at this time. # Hyperlipidemia: Labs from 08/26/2022 showing total cholesterol 294, triglycerides 323, LDL 169. Lipid panel from 12/25/2023 showing no improvement in cholesterol around 290, but improvement in triglycerides at 185, LDL 177.Based on cholesterol being 290, and cardiovascular risk factors will start rosuvastatin 10 mg, follow-up in the next 4 to 6 months for lipid panel and considering tapering down medication to 5 mg as patient does not want to be on this for long-term. We discussed lifestyle factors, she is eating a lot of shrimp, and red meat. Discussed fish, fish oil, [place]'s, healthy fats. Patient to follow-up for complete physical in June, sooner as needed. Weight management in 4 weeks. Time spent with patient 30 minutes with greater than 50% of patient occasion and care coordination. All quetsions answered to patients satisfaction. Patient verbalized understanding of diagnosis and treatments explained. To call sooner prior to next visit it any questions/concerns arise. Case discussed with collaborating physician Riley Quintero who reviewed the assessment and plan. Chart, medications, labs, vital signs reviewed. Dictation was accomplished with the use of [employer] voice recognition software, prone to medical misidentifications and grammatical errors. This is unintentional and the practitioner does try to identify and correct these, but some could still be present. Please do not hesitate to contact practitioner for clarification. 05/14/2024 Acute intractable tension-type headache (ICD-10 - G44.201) #Ear pain: patient states she has been experiencing ear pain for the past 2 days. Physical exam reveals a erythematous internal tympanic membrane without cone of light visualized, patient states she feels discomfort when the pinna is palpated as well as the maxillary sinuses on the right side of the face. Amoxicillin 875 mg twice daily for 5 days to send to pharmacy. Patient also advised to take Zyrtec 10 mg for the duration of her antibiotic course, As this will help alleviate any other symptoms of congestion she may experiences. Patient advised to take her antibiotics with food as well as a probiotic to alleviate any stomach discomfort. She is to call the office if she does not experience any relief after the course of antibiotics are done. Patient scheduled for physical exam in June #Headaches: Patient encouraged to utilize Ibuprofen as needed for her headaches. Case was discussed with Dr. Lucie Quintero. Please note, that there may be dictation errors. All questions were answered to the patient's satisfaction. 05/14/2024 Acute right otitis media (ICD-10 - H66.91) #Ear pain: patient states she has been experiencing ear pain for the past 2 days. Physical exam reveals a erythematous internal tympanic membrane without cone of light visualized, patient states she feels discomfort when the pinna is palpated as well as the maxillary sinuses on the right side of the face. Amoxicillin 875 mg twice daily for 5 days to send to pharmacy. Patient also advised to take Zyrtec 10 mg for the duration of her antibiotic course, As this will help alleviate any other symptoms of congestion she may experiences. Patient advised to take her antibiotics with food as well as a probiotic to alleviate any stomach discomfort. She is to call the office if she does not experience any relief after the course of antibiotics are done. Patient scheduled for physical exam in June #Headaches: Patient encouraged to utilize Ibuprofen as needed for her headaches. Case was discussed with Dr. Lucie Quintero. Please note, that there may be dictation errors. All questions were answered to the patient's satisfaction. 06/10/2024 Overweight (ICD-10 - E66.3) Glenis is a pleasant 43-year-old female presents the office for complete physical exam. Patient is up-to-date on all routine screenings, just had a mammogram this year, Pap smear this year. Follows with [facility] for both of those things. Declines flu and COVID vaccines, up-to-date on tetanus. Healthcare proxy is her boyfriend Cristino, and her mom Yeimi, which was filled out on 06/10/2024. PHQ-9 with a total score of 5, no concern regarding mental health at this time. 10/03/22: Weight 211, BMI 31.16- educated extensively on lifestyle modifications including high-protein, low carbohydrate, healthy fat, exercise, water intake, sleep hygiene, and stress relief. Patient will work on life so modifications of the next four weeks. Interested in weight loss medications. Start with Topamax 25 mg. Patient educated cannot drink alcohol on this medication. Most recent labs reviewed showing hyperlipidemia, without any insulin/diabetes concern. Patient educated on fish oil, diet, exercise. At next visit, will obtain EKG, and start phentermine 15 mg if EKG without concern. No concern for at this time. 10/31/22: weight 212, BMI 31.3- educated on lifestyle modifications. Patient went to [place], and then went to [place] and states that she has been traveling a lot and drinking more than usual. She is ready to get back on track. She has been walking more recently and focusing on portion control as well as eating earlier in the evening. She does feel some appetite suppression on metformin but is interested in starting an additional medication. She did not tolerate Topamax well. EKG's office today within normal limits. Will start phentermine 15 mg. Patient educated on side effects as well as proper use. Will follow-up in four weeks, sooner as needed.Encouraged to increase water intake. 12/05/22: weight 211.5, BMI 31.23- educated extensive and lifestyle modifications. Patient was congratulated on efforts. Taking phentermine 15 mg with compliance, without any side effects. Interested in increasing dose of 30 mg. If patient continues to have minimal weight loss, could consider GLP-1 injection such as Wegovy next visit, as at that time, patient will have three consecutive months of trying to lose weight. Patient understanding and aware of this plan. Educated to increase more formal exercise. 01/09/2023: Weight 207.3, BMI 30.61-patient congratulated on efforts, has been losing some weight. Taking phentermine 30 mg with compliance, without any side effects. Is noticing more appetite suppression on 30 mg then 15. Interested in increasing dose to 37.5. We did have a discussion about possibly switching to GLP-1 such as Wegovy, but having difficulty with supply at this time therefore we will continue phentermine 37.5 at this time. Did talk about compounded semaglutide as well, but patient states she will find it difficult to come to the office once weekly. Will increase to phentermine 37.5, and add Topamax. Patient also does admit to occasional headaches and history of migraines and this could benefit that as well. Educated on proper use, as well as side effects. 02/08/2023: Weight 205, BMI 30.27. Patient congratulated on effort. Taking phentermine 37.5, and Topamax. Noticing some appetite suppression but not significant effect. Interested in tapering off, and starting a different medication such as GLP-1 injection. Patient aware of the national shortage difficulty, but is interested in Saxenda. Did discuss proper use, and side effects of medication. We will taper phentermine, and start Saxenda. 03/12/2023: Weight 207.1, BMI 30.58. Patient expresses frustration given her current circumstances. She has not been able to obtain Saxenda from the pharmacy despite insurance approval. Currently taking phentermine 15 mg with no effect despite maintaining lifestyle modifications. Goals reevaluated and discussed incorporating increased intensity exercise in addition to walking as tolerated. Contacted [facility] pharmacy in [place] who states they cannot dispense Saxenda secondary to supply issues. Called [facility] specialty pharmacy, and Saxenda continues to be on backorder until unknown date. Will send to other [facility] pharmacy in [place], but patient will continue to call pharmacies to see who has availability, and happy to send to pharmacy when she can find one. She is understanding and aware. 04/12/2023: Weight 209 pounds, BMI 30.86. Patient did gain weight, but upon review of body composition scan she did gain 3 pounds of muscle, and lost 1 pound of fat. She was congratulated. Has been working hard with exercise and focusing on portion control but she states that she is going in the opposite direction because she is off of phentermine. Is interested in weight loss medications, tried sending Saxenda but was unable to obtain due to supply concern. We will start compounded semaglutide 0.25 mg today, and follow-up in 4 weeks. Also sending for Wegovy 0.5 mg and she is going to call the pharmacy to see if she can find although she is aware of the national shortage. 07/24/2023: Weight 199.6, BMI 29.47. Patient is welcome back to the practice, has not followed up since April due to insurance concerns, but is now following with us today. Patient was doing really well on semaglutide, but feels like she is now plateauing. Taking 0.5 mg, but interested in increasing to 1 mg. Will provide semaglutide 1 mg today, and submit for Wegovy 1 mg.Encouraged to continue with lifestyle modifications. 12/24/2023: Weight 204.1, BMI 30.14. Patient has gained since visit,, trying to get back on track. Was taking Wegovy 1 mg doing well, has been off for 6 weeks, so we will try to get her back on 1 mg and if not we will increase her to Wegovy 1.7 mg. Educated on proper use, side effects, long-term risk. 03/05/2024: Weight 203, BMI 30. Taking Wegovy 1.7 mg, will continue for another 4 weeks, and then consider increasing to 2.4 mg. If still at a plateau, consider switching over to Zepbound. Implementing more resistance training, and higher protein. Body scan reviewed today 04/02/2024: Weight 199, BMI 29: Patient congratulated on effort, continuing to lose slow, steady weight. Continue with Wegovy 1.7 mg. Encouraged to increase more resistance training, protein, and water intake. Follow-up in 4 weeks, could consider increasing Wegovy to 2.4 mg, or continuing with dose. 05/08/2024: Weight 198, BMI 29.25. Patient continuing to walk. Exercise otherwise limited due to right shoulder pain for which she is following with a chiropractor. Continue Wegovy but increase to 2.4 mg. If no improvement, consider switching over to Zepbound. Following up for physical in 1 month. 06/10/2024: Weight 201, BMI 29.74. Patient sought a plateau, will discontinue Wegovy, switch to Zepbound 2.5 mg. Discussed proper use, side effects. Follow-up in 4 to 6 weeks. #Patient also has some concerns regarding thinning of hair. Thyroid within normal limits. States that it is her also in her family. Did discuss possible dermatology referral, or PRP injections through our [facility]. # Migraines: X 3 months. Adequate nutrition/hydration. Ibuprofen as needed, no red flag symptoms. Separate control, migraines have been worse since then. She is not interested in getting back on control. Symptoms persisting, so trial sumatriptan 25 mg, repeating dose after 2 hours if symptoms persist. Discussed proper use, side effects. If no improvement could consider alternative abortive/preventativ e therapies or imaging. #Patient taken Lexapro. No concerns at this time. # Hyperlipidemia: Labs from 08/26/2022 showing total cholesterol 294, triglycerides 323, LDL 169. Lipid panel from 12/25/2023 showing no improvement in cholesterol around 290, but improvement in triglycerides at 185, LDL 177.Based on cholesterol being 290, and cardiovascular risk factors will start rosuvastatin 10 mg, Due for repeat lipid panel to assess efficacy/compliance of medication. Will order today. We discussed lifestyle factors, she is eating a lot of shrimp, and red meat. Discussed fish, fish oil, [place]'s, healthy fats. # Right shoulder pain: X 6 months, followed with a chiropractor and massage therapist without significant improvement. Will start with x-rays. Most likely will need physical therapy, Ortho referral, or further imaging. Discussed conservative treatments. Follow-up in 4 to 6 weeks for weight management. In the meantime x-ray of the right shoulder, and blood work. Will also assess efficacy/compliance of sumatriptan. Patient seen and examined. Comprehensive discussion was done on the following. 1. Nutrition: It is important to follow a healthy diet based on lots of vegetables and legumes and good fat. Avoid processed food and processed carbohydrates. Prepare your own meals. Read labels and avoid high fructose corn syrup, processed chemicals added to increase shelf life and preprepared meals. Avoid fast foods. Eat slowly and plan meals for a week. Try to count calories and be mindful off daily calorie intake. Get into the habit of keeping an eye on your weight by using an appropriate scale. Learn to log exercise and discussed fitness Apps like [employer] which can help keep log off calories taken versus calories burned. Local food should be preferred. Discussed Dirty Dozen Versus Clean Fifteen. Discussed healthy supplements like fish oil, Tumeric, Curcumin, Melatonin, Resveratrol, Probiotics, Vitamin-D, Alpha-Lipoic acid, Vitamin-D and coconut oil. 2. It is important to exercise regularly. Is a good habit to walk at least 30 minutes a day. Gentle weightlifting with standard precautions to protect the back. Finding activity like cycling or hiking and get into the habit of engaging in it. Stretching before and after the exercises important. It is also important to contact me if there are any problems like shortness of breath, chest pain, back pain and joint or muscle pain associated with the exercise. 3. Discussed age appropriate screening guidelines. Colonoscopy needs to start at age 50 with stool for occult blood as appropriate. There is a new test that can test for genetic abnormalities in the stool sample, Cologuard. This would not replace a colonoscopy but could be used as a screening tool for patients who do not want a colonoscopy. We discussed the importance of early detection of colon cancer. 4. Discussed current guidelines with respect to breast examination, mammogram and pap smear for early detection of breast and cervical cancer. Patient advised to follow up with these appointments. 5. Discussed safe driving and no use of smart phone while driving 6. Age-appropriate immunizations were discussed. A tetanus booster is needed every 10 years. Flu vaccine is recommended every year just before the start of the flu season. Shingles vaccine is recommended after age 50 but not all insurances cover it. Pneumonia vaccine is given after age 65 unless there are certain comorbidities for which it is started earlier. 7. Diagnostic labs were discussed. These could include/not limited to CBC CMP and lipids with fasting blood glucose and insulin levels. Vitamin D and hemoglobin A1c testing might be appropriate. All quetsions answered to patients satisfaction. Patient verbalized understanding of diagnosis and treatments explained. To call sooner prior to next visit it any questions/concerns arise. Case discussed with collaborating physician Riley Quintero who reviewed the assessment and plan. Chart, medications, labs, vital signs reviewed. Dictation was accomplished with the use of [employer] voice recognition software, prone to medical misidentifications and grammatical errors. This is unintentional and the practitioner does try to identify and correct these, but some could still be present. Please do not hesitate to contact practitioner for clarification. 06/10/2024 Wellness examination (ICD-10 - Z00.00) Glenis is a pleasant 43-year-old female presents the office for complete physical exam. Patient is up-to-date on all routine screenings, just had a mammogram this year, Pap smear this year. Follows with [facility] for both of those things. Declines flu and COVID vaccines, up-to-date on tetanus. Healthcare proxy is her boyfriend Cristino, and her mom Yeimi, which was filled out on 06/10/2024. PHQ-9 with a total score of 5, no concern regarding mental health at this time. 10/03/22: Weight 211, BMI 31.16- educated extensively on lifestyle modifications including high-protein, low carbohydrate, healthy fat, exercise, water intake, sleep hygiene, and stress relief. Patient will work on life so modifications of the next four weeks. Interested in weight loss medications. Start with Topamax 25 mg. Patient educated cannot drink alcohol on this medication. Most recent labs reviewed showing hyperlipidemia, without any insulin/diabetes concern. Patient educated on fish oil, diet, exercise. At next visit, will obtain EKG, and start phentermine 15 mg if EKG without concern. No concern for at this time. 10/31/22: weight 212, BMI 31.3- educated on lifestyle modifications. Patient went to [place], and then went to [place] and states that she has been traveling a lot and drinking more than usual. She is ready to get back on track. She has been walking more recently and focusing on portion control as well as eating earlier in the evening. She does feel some appetite suppression on metformin but is interested in starting an additional medication. She did not tolerate Topamax well. EKG's office today within normal limits. Will start phentermine 15 mg. Patient educated on side effects as well as proper use. Will follow-up in four weeks, sooner as needed.Encouraged to increase water intake. 12/05/22: weight 211.5, BMI 31.23- educated extensive and lifestyle modifications. Patient was congratulated on efforts. Taking phentermine 15 mg with compliance, without any side effects. Interested in increasing dose of 30 mg. If patient continues to have minimal weight loss, could consider GLP-1 injection such as Wegovy next visit, as at that time, patient will have three consecutive months of trying to lose weight. Patient understanding and aware of this plan. Educated to increase more formal exercise. 01/09/2023: Weight 207.3, BMI 30.61-patient congratulated on efforts, has been losing some weight. Taking phentermine 30 mg with compliance, without any side effects. Is noticing more appetite suppression on 30 mg then 15. Interested in increasing dose to 37.5. We did have a discussion about possibly switching to GLP-1 such as Wegovy, but having difficulty with supply at this time therefore we will continue phentermine 37.5 at this time. Did talk about compounded semaglutide as well, but patient states she will find it difficult to come to the office once weekly. Will increase to phentermine 37.5, and add Topamax. Patient also does admit to occasional headaches and history of migraines and this could benefit that as well. Educated on proper use, as well as side effects. 02/08/2023: Weight 205, BMI 30.27. Patient congratulated on effort. Taking phentermine 37.5, and Topamax. Noticing some appetite suppression but not significant effect. Interested in tapering off, and starting a different medication such as GLP-1 injection. Patient aware of the national shortage difficulty, but is interested in Saxenda. Did discuss proper use, and side effects of medication. We will taper phentermine, and start Saxenda. 03/12/2023: Weight 207.1, BMI 30.58. Patient expresses frustration given her current circumstances. She has not been able to obtain Saxenda from the pharmacy despite insurance approval. Currently taking phentermine 15 mg with no effect despite maintaining lifestyle modifications. Goals reevaluated and discussed incorporating increased intensity exercise in addition to walking as tolerated. Contacted [facility] pharmacy in [place] who states they cannot dispense Saxenda secondary to supply issues. Called [facility] specialty pharmacy, and Saxenda continues to be on backorder until unknown date. Will send to other [facility] pharmacy in [place], but patient will continue to call pharmacies to see who has availability, and happy to send to pharmacy when she can find one. She is understanding and aware. 04/12/2023: Weight 209 pounds, BMI 30.86. Patient did gain weight, but upon review of body composition scan she did gain 3 pounds of muscle, and lost 1 pound of fat. She was congratulated. Has been working hard with exercise and focusing on portion control but she states that she is going in the opposite direction because she is off of phentermine. Is interested in weight loss medications, tried sending Saxenda but was unable to obtain due to supply concern. We will start compounded semaglutide 0.25 mg today, and follow-up in 4 weeks. Also sending for Wegovy 0.5 mg and she is going to call the pharmacy to see if she can find although she is aware of the national shortage. 07/24/2023: Weight 199.6, BMI 29.47. Patient is welcome back to the practice, has not followed up since April due to insurance concerns, but is now following with us today. Patient was doing really well on semaglutide, but feels like she is now plateauing. Taking 0.5 mg, but interested in increasing to 1 mg. Will provide semaglutide 1 mg today, and submit for Wegovy 1 mg.Encouraged to continue with lifestyle modifications. 12/24/2023: Weight 204.1, BMI 30.14. Patient has gained since visit,, trying to get back on track. Was taking Wegovy 1 mg doing well, has been off for 6 weeks, so we will try to get her back on 1 mg and if not we will increase her to Wegovy 1.7 mg. Educated on proper use, side effects, long-term risk. 03/05/2024: Weight 203, BMI 30. Taking Wegovy 1.7 mg, will continue for another 4 weeks, and then consider increasing to 2.4 mg. If still at a plateau, consider switching over to Zepbound. Implementing more resistance training, and higher protein. Body scan reviewed today 04/02/2024: Weight 199, BMI 29: Patient congratulated on effort, continuing to lose slow, steady weight. Continue with Wegovy 1.7 mg. Encouraged to increase more resistance training, protein, and water intake. Follow-up in 4 weeks, could consider increasing Wegovy to 2.4 mg, or continuing with dose. 05/08/2024: Weight 198, BMI 29.25. Patient continuing to walk. Exercise otherwise limited due to right shoulder pain for which she is following with a chiropractor. Continue Wegovy but increase to 2.4 mg. If no improvement, consider switching over to Zepbound. Following up for physical in 1 month. 06/10/2024: Weight 201, BMI 29.74. Patient sought a plateau, will discontinue Wegovy, switch to Zepbound 2.5 mg. Discussed proper use, side effects. Follow-up in 4 to 6 weeks. #Patient also has some concerns regarding thinning of hair. Thyroid within normal limits. States that it is her also in her family. Did discuss possible dermatology referral, or PRP injections through our [facility]. # Migraines: X 3 months. Adequate nutrition/hydration. Ibuprofen as needed, no red flag symptoms. Separate control, migraines have been worse since then. She is not interested in getting back on control. Symptoms persisting, so trial sumatriptan 25 mg, repeating dose after 2 hours if symptoms persist. Discussed proper use, side effects. If no improvement could consider alternative abortive/preventativ e therapies or imaging. #Patient taken Lexapro. No concerns at this time. # Hyperlipidemia: Labs from 08/26/2022 showing total cholesterol 294, triglycerides 323, LDL 169. Lipid panel from 12/25/2023 showing no improvement in cholesterol around 290, but improvement in triglycerides at 185, LDL 177.Based on cholesterol being 290, and cardiovascular risk factors will start rosuvastatin 10 mg, Due for repeat lipid panel to assess efficacy/compliance of medication. Will order today. We discussed lifestyle factors, she is eating a lot of shrimp, and red meat. Discussed fish, fish oil, [place]'s, healthy fats. # Right shoulder pain: X 6 months, followed with a chiropractor and massage therapist without significant improvement. Will start with x-rays. Most likely will need physical therapy, Ortho referral, or further imaging. Discussed conservative treatments. Follow-up in 4 to 6 weeks for weight management. In the meantime x-ray of the right shoulder, and blood work. Will also assess efficacy/compliance of sumatriptan. Patient seen and examined. Comprehensive discussion was done on the following. 1. Nutrition: It is important to follow a healthy diet based on lots of vegetables and legumes and good fat. Avoid processed food and processed carbohydrates. Prepare your own meals. Read labels and avoid high fructose corn syrup, processed chemicals added to increase shelf life and preprepared meals. Avoid fast foods. Eat slowly and plan meals for a week. Try to count calories and be mindful off daily calorie intake. Get into the habit of keeping an eye on your weight by using an appropriate scale. Learn to log exercise and discussed fitness Apps like [employer] which can help keep log off calories taken versus calories burned. Local food should be preferred. Discussed Dirty Dozen Versus Clean Fifteen. Discussed healthy supplements like fish oil, Tumeric, Curcumin, Melatonin, Resveratrol, Probiotics, Vitamin-D, Alpha-Lipoic acid, Vitamin-D and coconut oil. 2. It is important to exercise regularly. Is a good habit to walk at least 30 minutes a day. Gentle weightlifting with standard precautions to protect the back. Finding activity like cycling or hiking and get into the habit of engaging in it. Stretching before and after the exercises important. It is also important to contact me if there are any problems like shortness of breath, chest pain, back pain and joint or muscle pain associated with the exercise. 3. Discussed age appropriate screening guidelines. Colonoscopy needs to start at age 50 with stool for occult blood as appropriate. There is a new test that can test for genetic abnormalities in the stool sample, Cologuard. This would not replace a colonoscopy but could be used as a screening tool for patients who do not want a colonoscopy. We discussed the importance of early detection of colon cancer. 4. Discussed current guidelines with respect to breast examination, mammogram and pap smear for early detection of breast and cervical cancer. Patient advised to follow up with these appointments. 5. Discussed safe driving and no use of smart phone while driving 6. Age-appropriate immunizations were discussed. A tetanus booster is needed every 10 years. Flu vaccine is recommended every year just before the start of the flu season. Shingles vaccine is recommended after age 50 but not all insurances cover it. Pneumonia vaccine is given after age 65 unless there are certain comorbidities for which it is started earlier. 7. Diagnostic labs were discussed. These could include/not limited to CBC CMP and lipids with fasting blood glucose and insulin levels. Vitamin D and hemoglobin A1c testing might be appropriate. All quetsions answered to patients satisfaction. Patient verbalized understanding of diagnosis and treatments explained. To call sooner prior to next visit it any questions/concerns arise. Case discussed with collaborating physician Riley Quintero who reviewed the assessment and plan. Chart, medications, labs, vital signs reviewed. Dictation was accomplished with the use of [employer] voice recognition software, prone to medical misidentifications and grammatical errors. This is unintentional and the practitioner does try to identify and correct these, but some could still be present. Please do not hesitate to contact practitioner for clarification. 07/07/2024 Overweight (ICD-10 - E66.3) 07/18/2024 Gastroesophageal reflux disease without esophagitis (ICD-10 - K21.9) 07/28/2024 Overweight (ICD-10 - E66.3) 10/03/22: Weight 211, BMI 31.16- educated extensively on lifestyle modifications including high-protein, low carbohydrate, healthy fat, exercise, water intake, sleep hygiene, and stress relief. Patient will work on life so modifications of the next four weeks. Interested in weight loss medications. Start with Topamax 25 mg. Patient educated cannot drink alcohol on this medication. Most recent labs reviewed showing hyperlipidemia, without any insulin/diabetes concern. Patient educated on fish oil, diet, exercise. At next visit, will obtain EKG, and start phentermine 15 mg if EKG without concern. No concern for at this time. 10/31/22: weight 212, BMI 31.3- educated on lifestyle modifications. Patient went to [place], and then went to [place] and states that she has been traveling a lot and drinking more than usual. She is ready to get back on track. She has been walking more recently and focusing on portion control as well as eating earlier in the evening. She does feel some appetite suppression on metformin but is interested in starting an additional medication. She did not tolerate Topamax well. EKG's office today within normal limits. Will start phentermine 15 mg. Patient educated on side effects as well as proper use. Will follow-up in four weeks, sooner as needed.Encouraged to increase water intake. 12/05/22: weight 211.5, BMI 31.23- educated extensive and lifestyle modifications. Patient was congratulated on efforts. Taking phentermine 15 mg with compliance, without any side effects. Interested in increasing dose of 30 mg. If patient continues to have minimal weight loss, could consider GLP-1 injection such as Wegovy next visit, as at that time, patient will have three consecutive months of trying to lose weight. Patient understanding and aware of this plan. Educated to increase more formal exercise. 01/09/2023: Weight 207.3, BMI 30.61-patient congratulated on efforts, has been losing some weight. Taking phentermine 30 mg with compliance, without any side effects. Is noticing more appetite suppression on 30 mg then 15. Interested in increasing dose to 37.5. We did have a discussion about possibly switching to GLP-1 such as Wegovy, but having difficulty with supply at this time therefore we will continue phentermine 37.5 at this time. Did talk about compounded semaglutide as well, but patient states she will find it difficult to come to the office once weekly. Will increase to phentermine 37.5, and add Topamax. Patient also does admit to occasional headaches and history of migraines and this could benefit that as well. Educated on proper use, as well as side effects. 02/08/2023: Weight 205, BMI 30.27. Patient congratulated on effort. Taking phentermine 37.5, and Topamax. Noticing some appetite suppression but not significant effect. Interested in tapering off, and starting a different medication such as GLP-1 injection. Patient aware of the national shortage difficulty, but is interested in Saxenda. Did discuss proper use, and side effects of medication. We will taper phentermine, and start Saxenda. 03/12/2023: Weight 207.1, BMI 30.58. Patient expresses frustration given her current circumstances. She has not been able to obtain Saxenda from the pharmacy despite insurance approval. Currently taking phentermine 15 mg with no effect despite maintaining lifestyle modifications. Goals reevaluated and discussed incorporating increased intensity exercise in addition to walking as tolerated. Contacted [facility] pharmacy in [place] who states they cannot dispense Saxenda secondary to supply issues. Called [facility] specialty pharmacy, and Saxenda continues to be on backorder until unknown date. Will send to other [facility] pharmacy in [place], but patient will continue to call pharmacies to see who has availability, and happy to send to pharmacy when she can find one. She is understanding and aware. 04/12/2023: Weight 209 pounds, BMI 30.86. Patient did gain weight, but upon review of body composition scan she did gain 3 pounds of muscle, and lost 1 pound of fat. She was congratulated. Has been working hard with exercise and focusing on portion control but she states that she is going in the opposite direction because she is off of phentermine. Is interested in weight loss medications, tried sending Saxenda but was unable to obtain due to supply concern. We will start compounded semaglutide 0.25 mg today, and follow-up in 4 weeks. Also sending for Wegovy 0.5 mg and she is going to call the pharmacy to see if she can find although she is aware of the national shortage. 07/24/2023: Weight 199.6, BMI 29.47. Patient is welcome back to the practice, has not followed up since April due to insurance concerns, but is now following with us today. Patient was doing really well on semaglutide, but feels like she is now plateauing. Taking 0.5 mg, but interested in increasing to 1 mg. Will provide semaglutide 1 mg today, and submit for Wegovy 1 mg.Encouraged to continue with lifestyle modifications. 12/24/2023: Weight 204.1, BMI 30.14. Patient has gained since visit,, trying to get back on track. Was taking Wegovy 1 mg doing well, has been off for 6 weeks, so we will try to get her back on 1 mg and if not we will increase her to Wegovy 1.7 mg. Educated on proper use, side effects, long-term risk. 03/05/2024: Weight 203, BMI 30. Taking Wegovy 1.7 mg, will continue for another 4 weeks, and then consider increasing to 2.4 mg. If still at a plateau, consider switching over to Zepbound. Implementing more resistance training, and higher protein. Body scan reviewed today 04/02/2024: Weight 199, BMI 29: Patient congratulated on effort, continuing to lose slow, steady weight. Continue with Wegovy 1.7 mg. Encouraged to increase more resistance training, protein, and water intake. Follow-up in 4 weeks, could consider increasing Wegovy to 2.4 mg, or continuing with dose. 05/08/2024: Weight 198, BMI 29.25. Patient continuing to walk. Exercise otherwise limited due to right shoulder pain for which she is following with a chiropractor. Continue Wegovy but increase to 2.4 mg. If no improvement, consider switching over to Zepbound. Following up for physical in 1 month. 06/10/2024: Weight 201, BMI 29.74. Patient sought a plateau, will discontinue Wegovy, switch to Zepbound 2.5 mg. Discussed proper use, side effects. Follow-up in 4 to 6 weeks. 07/28/2024: Weight 198, BMI 29. Weight plateaued since last visit. Switched over to Zepbound 2.5 mg, increased to 5 mg. Her grandmother just passed, so she has been planning arrangements and exercises been off. 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 #Patient also has some concerns regarding thinning of hair. Thyroid within normal limits. States that it is her also in her family. Did discuss possible dermatology referral, or PRP injections through our [facility]. # Migraines: X 3 months. Adequate nutrition/hydration. Ibuprofen as needed, no red flag symptoms. Separate control, migraines have been worse since then. She is not interested in getting back on control. Symptoms persisting, so trial sumatriptan 25 mg, repeating dose after 2 hours if symptoms persist. Discussed proper use, side effects. If no improvement could consider alternative abortive/preventativ e therapies or imaging. #Patient taken Lexapro. No concerns at this time. # Hyperlipidemia: Labs from 08/26/2022 showing total cholesterol 294, triglycerides 323, LDL 169. Lipid panel from 12/25/2023 showing no improvement in cholesterol around 290, but improvement in triglycerides at 185, LDL 177.Based on cholesterol being 290, and cardiovascular risk factors will start rosuvastatin 10 mg, Due for repeat lipid panel to assess efficacy/compliance of medication. Will order today. We discussed lifestyle factors, she is eating a lot of shrimp, and red meat. Discussed fish, fish oil, [place]'s, healthy fats. # Right shoulder pain: X 6 months, followed with a chiropractor and massage therapist without significant improvement. Will start with x-rays. Most likely will need physical therapy, Ortho referral, or further imaging. Discussed conservative treatments.Patient is updated x-ray images of order. This with patient 30 minutes with greater than 50% patient education and coordination. Work prior to next visit. Follow-up in 6 weeks, sooner as needed All quetsions answered to patients satisfaction. Patient verbalized understanding of diagnosis and treatments explained. To call sooner prior to next visit it any questions/concerns arise. Case discussed with collaborating physician Riley Quintero who reviewed the assessment and plan. Chart, medications, labs, vital signs reviewed. Dictation was accomplished with the use of [employer] voice recognition software, prone to medical misidentifications and grammatical errors. This is unintentional and the practitioner does try to identify and correct these, but some could still be present. Please do not hesitate to contact practitioner for clarification. 07/28/2024 BMI 29.0-29.9,adult (ICD-10 - Z68.29) 10/03/22: Weight 211, BMI 31.16- educated extensively on lifestyle modifications including high-protein, low carbohydrate, healthy fat, exercise, water intake, sleep hygiene, and stress relief. Patient will work on life so modifications of the next four weeks. Interested in weight loss medications. Start with Topamax 25 mg. Patient educated cannot drink alcohol on this medication. Most recent labs reviewed showing hyperlipidemia, without any insulin/diabetes concern. Patient educated on fish oil, diet, exercise. At next visit, will obtain EKG, and start phentermine 15 mg if EKG without concern. No concern for at this time. 10/31/22: weight 212, BMI 31.3- educated on lifestyle modifications. Patient went to [place], and then went to [place] and states that she has been traveling a lot and drinking more than usual. She is ready to get back on track. She has been walking more recently and focusing on portion control as well as eating earlier in the evening. She does feel some appetite suppression on metformin but is interested in starting an additional medication. She did not tolerate Topamax well. EKG's office today within normal limits. Will start phentermine 15 mg. Patient educated on side effects as well as proper use. Will follow-up in four weeks, sooner as needed.Encouraged to increase water intake. 12/05/22: weight 211.5, BMI 31.23- educated extensive and lifestyle modifications. Patient was congratulated on efforts. Taking phentermine 15 mg with compliance, without any side effects. Interested in increasing dose of 30 mg. If patient continues to have minimal weight loss, could consider GLP-1 injection such as Wegovy next visit, as at that time, patient will have three consecutive months of trying to lose weight. Patient understanding and aware of this plan. Educated to increase more formal exercise. 01/09/2023: Weight 207.3, BMI 30.61-patient congratulated on efforts, has been losing some weight. Taking phentermine 30 mg with compliance, without any side effects. Is noticing more appetite suppression on 30 mg then 15. Interested in increasing dose to 37.5. We did have a discussion about possibly switching to GLP-1 such as Wegovy, but having difficulty with supply at this time therefore we will continue phentermine 37.5 at this time. Did talk about compounded semaglutide as well, but patient states she will find it difficult to come to the office once weekly. Will increase to phentermine 37.5, and add Topamax. Patient also does admit to occasional headaches and history of migraines and this could benefit that as well. Educated on proper use, as well as side effects. 02/08/2023: Weight 205, BMI 30.27. Patient congratulated on effort. Taking phentermine 37.5, and Topamax. Noticing some appetite suppression but not significant effect. Interested in tapering off, and starting a different medication such as GLP-1 injection. Patient aware of the national shortage difficulty, but is interested in Saxenda. Did discuss proper use, and side effects of medication. We will taper phentermine, and start Saxenda. 03/12/2023: Weight 207.1, BMI 30.58. Patient expresses frustration given her current circumstances. She has not been able to obtain Saxenda from the pharmacy despite insurance approval. Currently taking phentermine 15 mg with no effect despite maintaining lifestyle modifications. Goals reevaluated and discussed incorporating increased intensity exercise in addition to walking as tolerated. Contacted [facility] pharmacy in [place] who states they cannot dispense Saxenda secondary to supply issues. Called [facility] specialty pharmacy, and Saxenda continues to be on backorder until unknown date. Will send to other [facility] pharmacy in [place], but patient will continue to call pharmacies to see who has availability, and happy to send to pharmacy when she can find one. She is understanding and aware. 04/12/2023: Weight 209 pounds, BMI 30.86. Patient did gain weight, but upon review of body composition scan she did gain 3 pounds of muscle, and lost 1 pound of fat. She was congratulated. Has been working hard with exercise and focusing on portion control but she states that she is going in the opposite direction because she is off of phentermine. Is interested in weight loss medications, tried sending Saxenda but was unable to obtain due to supply concern. We will start compounded semaglutide 0.25 mg today, and follow-up in 4 weeks. Also sending for Wegovy 0.5 mg and she is going to call the pharmacy to see if she can find although she is aware of the national shortage. 07/24/2023: Weight 199.6, BMI 29.47. Patient is welcome back to the practice, has not followed up since April due to insurance concerns, but is now following with us today. Patient was doing really well on semaglutide, but feels like she is now plateauing. Taking 0.5 mg, but interested in increasing to 1 mg. Will provide semaglutide 1 mg today, and submit for Wegovy 1 mg.Encouraged to continue with lifestyle modifications. 12/24/2023: Weight 204.1, BMI 30.14. Patient has gained since visit,, trying to get back on track. Was taking Wegovy 1 mg doing well, has been off for 6 weeks, so we will try to get her back on 1 mg and if not we will increase her to Wegovy 1.7 mg. Educated on proper use, side effects, long-term risk. 03/05/2024: Weight 203, BMI 30. Taking Wegovy 1.7 mg, will continue for another 4 weeks, and then consider increasing to 2.4 mg. If still at a plateau, consider switching over to Zepbound. Implementing more resistance training, and higher protein. Body scan reviewed today 04/02/2024: Weight 199, BMI 29: Patient congratulated on effort, continuing to lose slow, steady weight. Continue with Wegovy 1.7 mg. Encouraged to increase more resistance training, protein, and water intake. Follow-up in 4 weeks, could consider increasing Wegovy to 2.4 mg, or continuing with dose. 05/08/2024: Weight 198, BMI 29.25. Patient continuing to walk. Exercise otherwise limited due to right shoulder pain for which she is following with a chiropractor. Continue Wegovy but increase to 2.4 mg. If no improvement, consider switching over to Zepbound. Following up for physical in 1 month. 06/10/2024: Weight 201, BMI 29.74. Patient sought a plateau, will discontinue Wegovy, switch to Zepbound 2.5 mg. Discussed proper use, side effects. Follow-up in 4 to 6 weeks. 07/28/2024: Weight 198, BMI 29. Weight plateaued since last visit. Switched over to Zepbound 2.5 mg, increased to 5 mg. Her grandmother just passed, so she has been planning arrangements and exercises been off. 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 #Patient also has some concerns regarding thinning of hair. Thyroid within normal limits. States that it is her also in her family. Did discuss possible dermatology referral, or PRP injections through our [facility]. # Migraines: X 3 months. Adequate nutrition/hydration. Ibuprofen as needed, no red flag symptoms. Separate control, migraines have been worse since then. She is not interested in getting back on control. Symptoms persisting, so trial sumatriptan 25 mg, repeating dose after 2 hours if symptoms persist. Discussed proper use, side effects. If no improvement could consider alternative abortive/preventativ e therapies or imaging. #Patient taken Lexapro. No concerns at this time. # Hyperlipidemia: Labs from 08/26/2022 showing total cholesterol 294, triglycerides 323, LDL 169. Lipid panel from 12/25/2023 showing no improvement in cholesterol around 290, but improvement in triglycerides at 185, LDL 177.Based on cholesterol being 290, and cardiovascular risk factors will start rosuvastatin 10 mg, Due for repeat lipid panel to assess efficacy/compliance of medication. Will order today. We discussed lifestyle factors, she is eating a lot of shrimp, and red meat. Discussed fish, fish oil, [place], healthy fats. # Right shoulder pain: X 6 months, followed with a chiropractor and massage therapist without significant improvement. Will start with x-rays. Most likely will need physical therapy, Ortho referral, or further imaging. Discussed conservative treatments.Patient is updated x-ray images of order. This with patient 30 minutes with greater than 50% patient education and coordination. Work prior to next visit. Follow-up in 6 weeks, sooner as needed All quetsions answered to patients satisfaction. Patient verbalized understanding of diagnosis and treatments explained. To call sooner prior to next visit it any questions/concerns arise. Case discussed with collaborating physician Riley Quintero who reviewed the assessment and plan. Chart, medications, labs, vital signs reviewed. Dictation was accomplished with the use of [employer] voice recognition software, prone to medical misidentifications and grammatical errors. This is unintentional and the practitioner does try to identify and correct these, but some could still be present. Please do not hesitate to contact practitioner for clarification. 09/10/2024 Overweight (ICD-10 - E66.3) 10/03/22: Weight 211, BMI 31.16- educated extensively on lifestyle modifications including high-protein, low carbohydrate, healthy fat, exercise, water intake, sleep hygiene, and stress relief. Patient will work on life so modifications of the next four weeks. Interested in weight loss medications. Start with Topamax 25 mg. Patient educated cannot drink alcohol on this medication. Most recent labs reviewed showing hyperlipidemia, without any insulin/diabetes concern. Patient educated on fish oil, diet, exercise. At next visit, will obtain EKG, and start phentermine 15 mg if EKG without concern. No concern for at this time. 10/31/22: weight 212, BMI 31.3- educated on lifestyle modifications. Patient went to [place], and then went to [place] and states that she has been traveling a lot and drinking more than usual. She is ready to get back on track. She has been walking more recently and focusing on portion control as well as eating earlier in the evening. She does feel some appetite suppression on metformin but is interested in starting an additional medication. She did not tolerate Topamax well. EKG's office today within normal limits. Will start phentermine 15 mg. Patient educated on side effects as well as proper use. Will follow-up in four weeks, sooner as needed.Encouraged to increase water intake. 12/05/22: weight 211.5, BMI 31.23- educated extensive and lifestyle modifications. Patient was congratulated on efforts. Taking phentermine 15 mg with compliance, without any side effects. Interested in increasing dose of 30 mg. If patient continues to have minimal weight loss, could consider GLP-1 injection such as Wegovy next visit, as at that time, patient will have three consecutive months of trying to lose weight. Patient understanding and aware of this plan. Educated to increase more formal exercise. 01/09/2023: Weight 207.3, BMI 30.61-patient congratulated on efforts, has been losing some weight. Taking phentermine 30 mg with compliance, without any side effects. Is noticing more appetite suppression on 30 mg then 15. Interested in increasing dose to 37.5. We did have a discussion about possibly switching to GLP-1 such as Wegovy, but having difficulty with supply at this time therefore we will continue phentermine 37.5 at this time. Did talk about compounded semaglutide as well, but patient states she will find it difficult to come to the office once weekly. Will increase to phentermine 37.5, and add Topamax. Patient also does admit to occasional headaches and history of migraines and this could benefit that as well. Educated on proper use, as well as side effects. 02/08/2023: Weight 205, BMI 30.27. Patient congratulated on effort. Taking phentermine 37.5, and Topamax. Noticing some appetite suppression but not significant effect. Interested in tapering off, and starting a different medication such as GLP-1 injection. Patient aware of the national shortage difficulty, but is interested in Saxenda. Did discuss proper use, and side effects of medication. We will taper phentermine, and start Saxenda. 03/12/2023: Weight 207.1, BMI 30.58. Patient expresses frustration given her current circumstances. She has not been able to obtain Saxenda from the pharmacy despite insurance approval. Currently taking phentermine 15 mg with no effect despite maintaining lifestyle modifications. Goals reevaluated and discussed incorporating increased intensity exercise in addition to walking as tolerated. Contacted [facility] pharmacy in [place] who states they cannot dispense Saxenda secondary to supply issues. Called [facility] specialty pharmacy, and Saxenda continues to be on backorder until unknown date. Will send to other [facility] pharmacy in [place], but patient will continue to call pharmacies to see who has availability, and happy to send to pharmacy when she can find one. She is understanding and aware. 04/12/2023: Weight 209 pounds, BMI 30.86. Patient did gain weight, but upon review of body composition scan she did gain 3 pounds of muscle, and lost 1 pound of fat. She was congratulated. Has been working hard with exercise and focusing on portion control but she states that she is going in the opposite direction because she is off of phentermine. Is interested in weight loss medications, tried sending Saxenda but was unable to obtain due to supply concern. We will start compounded semaglutide 0.25 mg today, and follow-up in 4 weeks. Also sending for Wegovy 0.5 mg and she is going to call the pharmacy to see if she can find although she is aware of the national shortage. 07/24/2023: Weight 199.6, BMI 29.47. Patient is welcome back to the practice, has not followed up since April due to insurance concerns, but is now following with us today. Patient was doing really well on semaglutide, but feels like she is now plateauing. Taking 0.5 mg, but interested in increasing to 1 mg. Will provide semaglutide 1 mg today, and submit for Wegovy 1 mg.Encouraged to continue with lifestyle modifications. 12/24/2023: Weight 204.1, BMI 30.14. Patient has gained since visit,, trying to get back on track. Was taking Wegovy 1 mg doing well, has been off for 6 weeks, so we will try to get her back on 1 mg and if not we will increase her to Wegovy 1.7 mg. Educated on proper use, side effects, long-term risk. 03/05/2024: Weight 203, BMI 30. Taking Wegovy 1.7 mg, will continue for another 4 weeks, and then consider increasing to 2.4 mg. If still at a plateau, consider switching over to Zepbound. Implementing more resistance training, and higher protein. Body scan reviewed today 04/02/2024: Weight 199, BMI 29: Patient congratulated on effort, continuing to lose slow, steady weight. Continue with Wegovy 1.7 mg. Encouraged to increase more resistance training, protein, and water intake. Follow-up in 4 weeks, could consider increasing Wegovy to 2.4 mg, or continuing with dose. 05/08/2024: Weight 198, BMI 29.25. Patient continuing to walk. Exercise otherwise limited due to right shoulder pain for which she is following with a chiropractor. Continue Wegovy but increase to 2.4 mg. If no improvement, consider switching over to Zepbound. Following up for physical in 1 month. 06/10/2024: Weight 201, BMI 29.74. Patient sought a plateau, will discontinue Wegovy, switch to Zepbound 2.5 mg. Discussed proper use, side effects. Follow-up in 4 to 6 weeks. 07/28/2024: Weight 198, BMI 29. Weight plateaued since last visit. Switched over to Zepbound 2.5 mg, increased to 5 mg. Her grandmother just passed, so she has been planning arrangements and exercises been off. 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 09/10/2024: Weight 197, BMI 29. Discontinuing Zepbound 2 weeks ago secondary to significant hair loss. Will hold off on all weight loss medications and follow-up in 4 weeks. Will obtain blood work prior # Hair loss: Ordering CBC, iron, TIBC, ferritin, ABHAY, CRP, estrogen, progesterone, testosterone, DHEA, TSH, T3, T4, vitamin D, and vitamin B12.Patient taking NutrAFUL. Consider dermatology referral. # Migraines: Adequate nutrition/hydration. Ibuprofen as needed, no red flag symptoms. Separate control, migraines have been worse since then. She is not interested in getting back on control. Taking sumatriptan as needed. If no improvement could consider alternative abortive/preventativ e therapies or imaging. #Patient taken Lexapro. No concerns at this time. # Hyperlipidemia: Labs from 08/26/2022 showing total cholesterol 294, triglycerides 323, LDL 169. Lipid panel from 12/25/2023 showing no improvement in cholesterol around 290, but improvement in triglycerides at 185, LDL 177.Based on cholesterol being 290, and cardiovascular risk factors Rosuvastatin 10 mg initiated. Repeating lipid panel. # Right shoulder pain: X 6 months, followed with a chiropractor and massage therapist without significant improvement.Ordered x-rays, although patient did not obtain. Follow-up in 4 weeks, lab in the meantime. All quetsions answered to patients satisfaction. Patient verbalized understanding of diagnosis and treatments explained. To call sooner prior to next visit it any questions/concerns arise. Case discussed with collaborating physician Riley Quintero who reviewed the assessment and plan. Chart, medications, labs, vital signs reviewed. Dictation was accomplished with the use of [employer] voice recognition software, prone to medical misidentifications and grammatical errors. This is unintentional and the practitioner does try to identify and correct these, but some could still be present. Please do not hesitate to contact practitioner for clarification. 09/10/2024 BMI 29.0-29.9,adult (ICD-10 - Z68.29) 10/03/22: Weight 211, BMI 31.16- educated extensively on lifestyle modifications including high-protein, low carbohydrate, healthy fat, exercise, water intake, sleep hygiene, and stress relief. Patient will work on life so modifications of the next four weeks. Interested in weight loss medications. Start with Topamax 25 mg. Patient educated cannot drink alcohol on this medication. Most recent labs reviewed showing hyperlipidemia, without any insulin/diabetes concern. Patient educated on fish oil, diet, exercise. At next visit, will obtain EKG, and start phentermine 15 mg if EKG without concern. No concern for at this time. 10/31/22: weight 212, BMI 31.3- educated on lifestyle modifications. Patient went to [place], and then went to [place] and states that she has been traveling a lot and drinking more than usual. She is ready to get back on track. She has been walking more recently and focusing on portion control as well as eating earlier in the evening. She does feel some appetite suppression on metformin but is interested in starting an additional medication. She did not tolerate Topamax well. EKG's office today within normal limits. Will start phentermine 15 mg. Patient educated on side effects as well as proper use. Will follow-up in four weeks, sooner as needed.Encouraged to increase water intake. 12/05/22: weight 211.5, BMI 31.23- educated extensive and lifestyle modifications. Patient was congratulated on efforts. Taking phentermine 15 mg with compliance, without any side effects. Interested in increasing dose of 30 mg. If patient continues to have minimal weight loss, could consider GLP-1 injection such as Wegovy next visit, as at that time, patient will have three consecutive months of trying to lose weight. Patient understanding and aware of this plan. Educated to increase more formal exercise. 01/09/2023: Weight 207.3, BMI 30.61-patient congratulated on efforts, has been losing some weight. Taking phentermine 30 mg with compliance, without any side effects. Is noticing more appetite suppression on 30 mg then 15. Interested in increasing dose to 37.5. We did have a discussion about possibly switching to GLP-1 such as Wegovy, but having difficulty with supply at this time therefore we will continue phentermine 37.5 at this time. Did talk about compounded semaglutide as well, but patient states she will find it difficult to come to the office once weekly. Will increase to phentermine 37.5, and add Topamax. Patient also does admit to occasional headaches and history of migraines and this could benefit that as well. Educated on proper use, as well as side effects. 02/08/2023: Weight 205, BMI 30.27. Patient congratulated on effort. Taking phentermine 37.5, and Topamax. Noticing some appetite suppression but not significant effect. Interested in tapering off, and starting a different medication such as GLP-1 injection. Patient aware of the national shortage difficulty, but is interested in Saxenda. Did discuss proper use, and side effects of medication. We will taper phentermine, and start Saxenda. 03/12/2023: Weight 207.1, BMI 30.58. Patient expresses frustration given her current circumstances. She has not been able to obtain Saxenda from the pharmacy despite insurance approval. Currently taking phentermine 15 mg with no effect despite maintaining lifestyle modifications. Goals reevaluated and discussed incorporating increased intensity exercise in addition to walking as tolerated. Contacted [facility] pharmacy in [place] who states they cannot dispense Saxenda secondary to supply issues. Called [facility] specialty pharmacy, and Saxenda continues to be on backorder until unknown date. Will send to other [facility] pharmacy in [place], but patient will continue to call pharmacies to see who has availability, and happy to send to pharmacy when she can find one. She is understanding and aware. 04/12/2023: Weight 209 pounds, BMI 30.86. Patient did gain weight, but upon review of body composition scan she did gain 3 pounds of muscle, and lost 1 pound of fat. She was congratulated. Has been working hard with exercise and focusing on portion control but she states that she is going in the opposite direction because she is off of phentermine. Is interested in weight loss medications, tried sending Saxenda but was unable to obtain due to supply concern. We will start compounded semaglutide 0.25 mg today, and follow-up in 4 weeks. Also sending for Wegovy 0.5 mg and she is going to call the pharmacy to see if she can find although she is aware of the national shortage. 07/24/2023: Weight 199.6, BMI 29.47. Patient is welcome back to the practice, has not followed up since April due to insurance concerns, but is now following with us today. Patient was doing really well on semaglutide, but feels like she is now plateauing. Taking 0.5 mg, but interested in increasing to 1 mg. Will provide semaglutide 1 mg today, and submit for Wegovy 1 mg.Encouraged to continue with lifestyle modifications. 12/24/2023: Weight 204.1, BMI 30.14. Patient has gained since visit,, trying to get back on track. Was taking Wegovy 1 mg doing well, has been off for 6 weeks, so we will try to get her back on 1 mg and if not we will increase her to Wegovy 1.7 mg. Educated on proper use, side effects, long-term risk. 03/05/2024: Weight 203, BMI 30. Taking Wegovy 1.7 mg, will continue for another 4 weeks, and then consider increasing to 2.4 mg. If still at a plateau, consider switching over to Zepbound. Implementing more resistance training, and higher protein. Body scan reviewed today 04/02/2024: Weight 199, BMI 29: Patient congratulated on effort, continuing to lose slow, steady weight. Continue with Wegovy 1.7 mg. Encouraged to increase more resistance training, protein, and water intake. Follow-up in 4 weeks, could consider increasing Wegovy to 2.4 mg, or continuing with dose. 05/08/2024: Weight 198, BMI 29.25. Patient continuing to walk. Exercise otherwise limited due to right shoulder pain for which she is following with a chiropractor. Continue Wegovy but increase to 2.4 mg. If no improvement, consider switching over to Zepbound. Following up for physical in 1 month. 06/10/2024: Weight 201, BMI 29.74. Patient sought a plateau, will discontinue Wegovy, switch to Zepbound 2.5 mg. Discussed proper use, side effects. Follow-up in 4 to 6 weeks. 07/28/2024: Weight 198, BMI 29. Weight plateaued since last visit. Switched over to Zepbound 2.5 mg, increased to 5 mg. Her grandmother just passed, so she has been planning arrangements and exercises been off. 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 09/10/2024: Weight 197, BMI 29. Discontinuing Zepbound 2 weeks ago secondary to significant hair loss. Will hold off on all weight loss medications and follow-up in 4 weeks. Will obtain blood work prior # Hair loss: Ordering CBC, iron, TIBC, ferritin, ABHAY, CRP, estrogen, progesterone, testosterone, DHEA, TSH, T3, T4, vitamin D, and vitamin B12.Patient taking NutrAFUL. Consider dermatology referral. # Migraines: Adequate nutrition/hydration. Ibuprofen as needed, no red flag symptoms. Separate control, migraines have been worse since then. She is not interested in getting back on control. Taking sumatriptan as needed. If no improvement could consider alternative abortive/preventativ e therapies or imaging. #Patient taken Lexapro. No concerns at this time. # Hyperlipidemia: Labs from 08/26/2022 showing total cholesterol 294, triglycerides 323, LDL 169. Lipid panel from 12/25/2023 showing no improvement in cholesterol around 290, but improvement in triglycerides at 185, LDL 177.Based on cholesterol being 290, and cardiovascular risk factors Rosuvastatin 10 mg initiated. Repeating lipid panel. # Right shoulder pain: X 6 months, followed with a chiropractor and massage therapist without significant improvement.Ordered x-rays, although patient did not obtain. Follow-up in 4 weeks, lab in the meantime. All quetsions answered to patients satisfaction. Patient verbalized understanding of diagnosis and treatments explained. To call sooner prior to next visit it any questions/concerns arise. Case discussed with collaborating physician Riley Quintero who reviewed the assessment and plan. Chart, medications, labs, vital signs reviewed. Dictation was accomplished with the use of [employer] voice recognition software, prone to medical misidentifications and grammatical errors. This is unintentional and the practitioner does try to identify and correct these, but some could still be present. Please do not hesitate to contact practitioner for clarification. 11/17/2024 Anxiety (ICD-10 - F41.9) 10/03/22: Weight 211, BMI 31.16- educated extensively on lifestyle modifications including high-protein, low carbohydrate, healthy fat, exercise, water intake, sleep hygiene, and stress relief. Patient will work on life so modifications of the next four weeks. Interested in weight loss medications. Start with Topamax 25 mg. Patient educated cannot drink alcohol on this medication. Most recent labs reviewed showing hyperlipidemia, without any insulin/diabetes concern. Patient educated on fish oil, diet, exercise. At next visit, will obtain EKG, and start phentermine 15 mg if EKG without concern. No concern for at this time. 10/31/22: weight 212, BMI 31.3- educated on lifestyle modifications. Patient went to [place], and then went to [place] and states that she has been traveling a lot and drinking more than usual. She is ready to get back on track. She has been walking more recently and focusing on portion control as well as eating earlier in the evening. She does feel some appetite suppression on metformin but is interested in starting an additional medication. She did not tolerate Topamax well. EKG's office today within normal limits. Will start phentermine 15 mg. Patient educated on side effects as well as proper use. Will follow-up in four weeks, sooner as needed.Encouraged to increase water intake. 12/05/22: weight 211.5, BMI 31.23- educated extensive and lifestyle modifications. Patient was congratulated on efforts. Taking phentermine 15 mg with compliance, without any side effects. Interested in increasing dose of 30 mg. If patient continues to have minimal weight loss, could consider GLP-1 injection such as Wegovy next visit, as at that time, patient will have three consecutive months of trying to lose weight. Patient understanding and aware of this plan. Educated to increase more formal exercise. 01/09/2023: Weight 207.3, BMI 30.61-patient congratulated on efforts, has been losing some weight. Taking phentermine 30 mg with compliance, without any side effects. Is noticing more appetite suppression on 30 mg then 15. Interested in increasing dose to 37.5. We did have a discussion about possibly switching to GLP-1 such as Wegovy, but having difficulty with supply at this time therefore we will continue phentermine 37.5 at this time. Did talk about compounded semaglutide as well, but patient states she will find it difficult to come to the office once weekly. Will increase to phentermine 37.5, and add Topamax. Patient also does admit to occasional headaches and history of migraines and this could benefit that as well. Educated on proper use, as well as side effects. 02/08/2023: Weight 205, BMI 30.27. Patient congratulated on effort. Taking phentermine 37.5, and Topamax. Noticing some appetite suppression but not significant effect. Interested in tapering off, and starting a different medication such as GLP-1 injection. Patient aware of the national shortage difficulty, but is interested in Saxenda. Did discuss proper use, and side effects of medication. We will taper phentermine, and start Saxenda. 03/12/2023: Weight 207.1, BMI 30.58. Patient expresses frustration given her current circumstances. She has not been able to obtain Saxenda from the pharmacy despite insurance approval. Currently taking phentermine 15 mg with no effect despite maintaining lifestyle modifications. Goals reevaluated and discussed incorporating increased intensity exercise in addition to walking as tolerated. Contacted [facility] pharmacy in [place] who states they cannot dispense Saxenda secondary to supply issues. Called [facility] specialty pharmacy, and Saxenda continues to be on backorder until unknown date. Will send to other [facility] pharmacy in [place], but patient will continue to call pharmacies to see who has availability, and happy to send to pharmacy when she can find one. She is understanding and aware. 04/12/2023: Weight 209 pounds, BMI 30.86. Patient did gain weight, but upon review of body composition scan she did gain 3 pounds of muscle, and lost 1 pound of fat. She was congratulated. Has been working hard with exercise and focusing on portion control but she states that she is going in the opposite direction because she is off of phentermine. Is interested in weight loss medications, tried sending Saxenda but was unable to obtain due to supply concern. We will start compounded semaglutide 0.25 mg today, and follow-up in 4 weeks. Also sending for Wegovy 0.5 mg and she is going to call the pharmacy to see if she can find although she is aware of the national shortage. 07/24/2023: Weight 199.6, BMI 29.47. Patient is welcome back to the practice, has not followed up since April due to insurance concerns, but is now following with us today. Patient was doing really well on semaglutide, but feels like she is now plateauing. Taking 0.5 mg, but interested in increasing to 1 mg. Will provide semaglutide 1 mg today, and submit for Wegovy 1 mg.Encouraged to continue with lifestyle modifications. 12/24/2023: Weight 204.1, BMI 30.14. Patient has gained since visit,, trying to get back on track. Was taking Wegovy 1 mg doing well, has been off for 6 weeks, so we will try to get her back on 1 mg and if not we will increase her to Wegovy 1.7 mg. Educated on proper use, side effects, long-term risk. 03/05/2024: Weight 203, BMI 30. Taking Wegovy 1.7 mg, will continue for another 4 weeks, and then consider increasing to 2.4 mg. If still at a plateau, consider switching over to Zepbound. Implementing more resistance training, and higher protein. Body scan reviewed today 04/02/2024: Weight 199, BMI 29: Patient congratulated on effort, continuing to lose slow, steady weight. Continue with Wegovy 1.7 mg. Encouraged to increase more resistance training, protein, and water intake. Follow-up in 4 weeks, could consider increasing Wegovy to 2.4 mg, or continuing with dose. 05/08/2024: Weight 198, BMI 29.25. Patient continuing to walk. Exercise otherwise limited due to right shoulder pain for which she is following with a chiropractor. Continue Wegovy but increase to 2.4 mg. If no improvement, consider switching over to Zepbound. Following up for physical in 1 month. 06/10/2024: Weight 201, BMI 29.74. Patient sought a plateau, will discontinue Wegovy, switch to Zepbound 2.5 mg. Discussed proper use, side effects. Follow-up in 4 to 6 weeks. 07/28/2024: Weight 198, BMI 29. Weight plateaued since last visit. Switched over to Zepbound 2.5 mg, increased to 5 mg. Her grandmother just passed, so she has been planning arrangements and exercises been off. 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 09/10/2024: Weight 197, BMI 29. Discontinuing Zepbound 2 weeks ago secondary to significant hair loss. Will hold off on all weight loss medications and follow-up in 4 weeks. Will obtain blood work prior 11/17/2024 weight 221, BMI 32. start contrave, discussed proper use and side effects, and contact office with any concerns. Discussed reinitiating wegovy in the future, will trial contrave first. Discussed referral for mounter flutes and piccolos, Patient declines at this time. Follow up in 4-6 weeks # Hair loss: CBC, iron, TIBC, ferritin, ABHAY, CRP, estrogen, progesterone, testosterone, DHEA, TSH, T3, T4, were WNL, vitamin D was low, pt reports that she is taking vitamin D supplementation, vitamin B12 was low, pt recieved Vitamin B12 in office.Patient taking NutrAFUL wth improvment. Consider dermatology referral. # Migraines: Adequate nutrition/hydration. Ibuprofen as needed, no red flag symptoms. Separate control, migraines have been worse since then. She is not interested in getting back on control. Taking sumatriptan as needed. If no improvement could consider alternative abortive/preventativ e therapies or imaging. #Patient taken Lexapro 5 mg, patient states that her depression has been worse secondary to weight gain, will add on Contrave # Hyperlipidemia: 08/26/2022 showing total cholesterol 294, triglycerides 323, LDL 169. Lipid panel from 12/25/2023 showing no improvement in cholesterol around 290, but improvement in triglycerides at 185, LDL 177.Based on cholesterol being 290, and cardiovascular risk factors Rosuvastatin 10 mg initiated. Lab from 09/15/2024 total cholesterol 240, LDL 151, HDL 64. Repeating lipid panel in 3-4 months. if cholesterol is still elevated consider increasing Rosuvastatin. # Left shoulder pain: followed with a chiropractor and massage therapist without significant improvement.Ordered x-rays, although patient did not obtain. Ordered MRI of the LT shoulder Without contrast, concerned for rotater cuff abnormality Based on physical examination. Follow-up in 4 weeks, or sooner if needed. All quetsions answered to patients satisfaction. Patient verbalized understanding of diagnosis and treatments explained. To call sooner prior to next visit it any questions/concerns arise. Case discussed with collaborating physician Riley Quintero who reviewed the assessment and plan. Chart, medications, labs, vital signs reviewed. Dictation was accomplished with the use of [employer] voice recognition software, prone to medical misidentifications and grammatical errors. This is unintentional and the practitioner does try to identify and correct these, but some could still be present. Please do not hesitate to contact practitioner for clarification. 11/17/2024 Pain, joint, shoulder, left (ICD-10 - M25.512) 10/03/22: Weight 211, BMI 31.16- educated extensively on lifestyle modifications including high-protein, low carbohydrate, healthy fat, exercise, water intake, sleep hygiene, and stress relief. Patient will work on life so modifications of the next four weeks. Interested in weight loss medications. Start with Topamax 25 mg. Patient educated cannot drink alcohol on this medication. Most recent labs reviewed showing hyperlipidemia, without any insulin/diabetes concern. Patient educated on fish oil, diet, exercise. At next visit, will obtain EKG, and start phentermine 15 mg if EKG without concern. No concern for at this time. 10/31/22: weight 212, BMI 31.3- educated on lifestyle modifications. Patient went to [place], and then went to [place] and states that she has been traveling a lot and drinking more than usual. She is ready to get back on track. She has been walking more recently and focusing on portion control as well as eating earlier in the evening. She does feel some appetite suppression on metformin but is interested in starting an additional medication. She did not tolerate Topamax well. EKG's office today within normal limits. Will start phentermine 15 mg. Patient educated on side effects as well as proper use. Will follow-up in four weeks, sooner as needed.Encouraged to increase water intake. 12/05/22: weight 211.5, BMI 31.23- educated extensive and lifestyle modifications. Patient was congratulated on efforts. Taking phentermine 15 mg with compliance, without any side effects. Interested in increasing dose of 30 mg. If patient continues to have minimal weight loss, could consider GLP-1 injection such as Wegovy next visit, as at that time, patient will have three consecutive months of trying to lose weight. Patient understanding and aware of this plan. Educated to increase more formal exercise. 01/09/2023: Weight 207.3, BMI 30.61-patient congratulated on efforts, has been losing some weight. Taking phentermine 30 mg with compliance, without any side effects. Is noticing more appetite suppression on 30 mg then 15. Interested in increasing dose to 37.5. We did have a discussion about possibly switching to GLP-1 such as Wegovy, but having difficulty with supply at this time therefore we will continue phentermine 37.5 at this time. Did talk about compounded semaglutide as well, but patient states she will find it difficult to come to the office once weekly. Will increase to phentermine 37.5, and add Topamax. Patient also does admit to occasional headaches and history of migraines and this could benefit that as well. Educated on proper use, as well as side effects. 02/08/2023: Weight 205, BMI 30.27. Patient congratulated on effort. Taking phentermine 37.5, and Topamax. Noticing some appetite suppression but not significant effect. Interested in tapering off, and starting a different medication such as GLP-1 injection. Patient aware of the national shortage difficulty, but is interested in Saxenda. Did discuss proper use, and side effects of medication. We will taper phentermine, and start Saxenda. 03/12/2023: Weight 207.1, BMI 30.58. Patient expresses frustration given her current circumstances. She has not been able to obtain Saxenda from the pharmacy despite insurance approval. Currently taking phentermine 15 mg with no effect despite maintaining lifestyle modifications. Goals reevaluated and discussed incorporating increased intensity exercise in addition to walking as tolerated. Contacted [facility] pharmacy in [place] who states they cannot dispense Saxenda secondary to supply issues. Called [facility] specialty pharmacy, and Saxenda continues to be on backorder until unknown date. Will send to other [facility] pharmacy in [place], but patient will continue to call pharmacies to see who has availability, and happy to send to pharmacy when she can find one. She is understanding and aware. 04/12/2023: Weight 209 pounds, BMI 30.86. Patient did gain weight, but upon review of body composition scan she did gain 3 pounds of muscle, and lost 1 pound of fat. She was congratulated. Has been working hard with exercise and focusing on portion control but she states that she is going in the opposite direction because she is off of phentermine. Is interested in weight loss medications, tried sending Saxenda but was unable to obtain due to supply concern. We will start compounded semaglutide 0.25 mg today, and follow-up in 4 weeks. Also sending for Wegovy 0.5 mg and she is going to call the pharmacy to see if she can find although she is aware of the national shortage. 07/24/2023: Weight 199.6, BMI 29.47. Patient is welcome back to the practice, has not followed up since April due to insurance concerns, but is now following with us today. Patient was doing really well on semaglutide, but feels like she is now plateauing. Taking 0.5 mg, but interested in increasing to 1 mg. Will provide semaglutide 1 mg today, and submit for Wegovy 1 mg.Encouraged to continue with lifestyle modifications. 12/24/2023: Weight 204.1, BMI 30.14. Patient has gained since visit,, trying to get back on track. Was taking Wegovy 1 mg doing well, has been off for 6 weeks, so we will try to get her back on 1 mg and if not we will increase her to Wegovy 1.7 mg. Educated on proper use, side effects, long-term risk. 03/05/2024: Weight 203, BMI 30. Taking Wegovy 1.7 mg, will continue for another 4 weeks, and then consider increasing to 2.4 mg. If still at a plateau, consider switching over to Zepbound. Implementing more resistance training, and higher protein. Body scan reviewed today 04/02/2024: Weight 199, BMI 29: Patient congratulated on effort, continuing to lose slow, steady weight. Continue with Wegovy 1.7 mg. Encouraged to increase more resistance training, protein, and water intake. Follow-up in 4 weeks, could consider increasing Wegovy to 2.4 mg, or continuing with dose. 05/08/2024: Weight 198, BMI 29.25. Patient continuing to walk. Exercise otherwise limited due to right shoulder pain for which she is following with a chiropractor. Continue Wegovy but increase to 2.4 mg. If no improvement, consider switching over to Zepbound. Following up for physical in 1 month. 06/10/2024: Weight 201, BMI 29.74. Patient sought a plateau, will discontinue Wegovy, switch to Zepbound 2.5 mg. Discussed proper use, side effects. Follow-up in 4 to 6 weeks. 07/28/2024: Weight 198, BMI 29. Weight plateaued since last visit. Switched over to Zepbound 2.5 mg, increased to 5 mg. Her grandmother just passed, so she has been planning arrangements and exercises been off. 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 09/10/2024: Weight 197, BMI 29. Discontinuing Zepbound 2 weeks ago secondary to significant hair loss. Will hold off on all weight loss medications and follow-up in 4 weeks. Will obtain blood work prior 11/17/2024 weight 221, BMI 32. start contrave, discussed proper use and side effects, and contact office with any concerns. Discussed reinitiating wegovy in the future, will trial contrave first. Discussed referral for mounter flutes and piccolos, Patient declines at this time. Follow up in 4-6 weeks # Hair loss: CBC, iron, TIBC, ferritin, ABHAY, CRP, estrogen, progesterone, testosterone, DHEA, TSH, T3, T4, were WNL, vitamin D was low, pt reports that she is taking vitamin D supplementation, vitamin B12 was low, pt recieved Vitamin B12 in office.Patient taking NutrAFUL wth improvment. Consider dermatology referral. # Migraines: Adequate nutrition/hydration. Ibuprofen as needed, no red flag symptoms. Separate control, migraines have been worse since then. She is not interested in getting back on control. Taking sumatriptan as needed. If no improvement could consider alternative abortive/preventativ e therapies or imaging. #Patient taken Lexapro 5 mg, patient states that her depression has been worse secondary to weight gain, will add on Contrave # Hyperlipidemia: 08/26/2022 showing total cholesterol 294, triglycerides 323, LDL 169. Lipid panel from 12/25/2023 showing no improvement in cholesterol around 290, but improvement in triglycerides at 185, LDL 177.Based on cholesterol being 290, and cardiovascular risk factors Rosuvastatin 10 mg initiated. Lab from 09/15/2024 total cholesterol 240, LDL 151, HDL 64. Repeating lipid panel in 3-4 months. if cholesterol is still elevated consider increasing Rosuvastatin. # Left shoulder pain: followed with a chiropractor and massage therapist without significant improvement.Ordered x-rays, although patient did not obtain. Ordered MRI of the LT shoulder Without contrast, concerned for rotater cuff abnormality Based on physical examination. Follow-up in 4 weeks, or sooner if needed. All quetsions answered to patients satisfaction. Patient verbalized understanding of diagnosis and treatments explained. To call sooner prior to next visit it any questions/concerns arise. Case discussed with collaborating physician Riley Quintero who reviewed the assessment and plan. Chart, medications, labs, vital signs reviewed. Dictation was accomplished with the use of [employer] voice recognition software, prone to medical misidentifications and grammatical errors. This is unintentional and the practitioner does try to identify and correct these, but some could still be present. Please do not hesitate to contact practitioner for clarification. 11/17/2024 Shoulder pain, unspecified chronicity, unspecified laterality (ICD-10 - M25.519) 12/24/2024 Obesity (BMI 30-39.9) (ICD-10 - E66.9) 10/03/22: Weight 211, BMI 31.16- educated extensively on lifestyle modifications including high-protein, low carbohydrate, healthy fat, exercise, water intake, sleep hygiene, and stress relief. Patient will work on life so modifications of the next four weeks. Interested in weight loss medications. Start with Topamax 25 mg. Patient educated cannot drink alcohol on this medication. Most recent labs reviewed showing hyperlipidemia, without any insulin/diabetes concern. Patient educated on fish oil, diet, exercise. At next visit, will obtain EKG, and start phentermine 15 mg if EKG without concern. No concern for at this time. 10/31/22: weight 212, BMI 31.3- educated on lifestyle modifications. Patient went to [place], and then went to [place] and states that she has been traveling a lot and drinking more than usual. She is ready to get back on track. She has been walking more recently and focusing on portion control as well as eating earlier in the evening. She does feel some appetite suppression on metformin but is interested in starting an additional medication. She did not tolerate Topamax well. EKG's office today within normal limits. Will start phentermine 15 mg. Patient educated on side effects as well as proper use. Will follow-up in four weeks, sooner as needed.Encouraged to increase water intake. 12/05/22: weight 211.5, BMI 31.23- educated extensive and lifestyle modifications. Patient was congratulated on efforts. Taking phentermine 15 mg with compliance, without any side effects. Interested in increasing dose of 30 mg. If patient continues to have minimal weight loss, could consider GLP-1 injection such as Wegovy next visit, as at that time, patient will have three consecutive months of trying to lose weight. Patient understanding and aware of this plan. Educated to increase more formal exercise. 01/09/2023: Weight 207.3, BMI 30.61-patient congratulated on efforts, has been losing some weight. Taking phentermine 30 mg with compliance, without any side effects. Is noticing more appetite suppression on 30 mg then 15. Interested in increasing dose to 37.5. We did have a discussion about possibly switching to GLP-1 such as Wegovy, but having difficulty with supply at this time therefore we will continue phentermine 37.5 at this time. Did talk about compounded semaglutide as well, but patient states she will find it difficult to come to the office once weekly. Will increase to phentermine 37.5, and add Topamax. Patient also does admit to occasional headaches and history of migraines and this could benefit that as well. Educated on proper use, as well as side effects. 02/08/2023: Weight 205, BMI 30.27. Patient congratulated on effort. Taking phentermine 37.5, and Topamax. Noticing some appetite suppression but not significant effect. Interested in tapering off, and starting a different medication such as GLP-1 injection. Patient aware of the national shortage difficulty, but is interested in Saxenda. Did discuss proper use, and side effects of medication. We will taper phentermine, and start Saxenda. 03/12/2023: Weight 207.1, BMI 30.58. Patient expresses frustration given her current circumstances. She has not been able to obtain Saxenda from the pharmacy despite insurance approval. Currently taking phentermine 15 mg with no effect despite maintaining lifestyle modifications. Goals reevaluated and discussed incorporating increased intensity exercise in addition to walking as tolerated. Contacted [facility] pharmacy in [place] who states they cannot dispense Saxenda secondary to supply issues. Called [facility] pharmacy, and Saxenda continues to be on backorder until unknown date. Will send to other [facility] pharmacy in [place], but patient will continue to call pharmacies to see who has availability, and happy to send to pharmacy when she can find one. She is understanding and aware. 04/12/2023: Weight 209 pounds, BMI 30.86. Patient did gain weight, but upon review of body composition scan she did gain 3 pounds of muscle, and lost 1 pound of fat. She was congratulated. Has been working hard with exercise and focusing on portion control but she states that she is going in the opposite direction because she is off of phentermine. Is interested in weight loss medications, tried sending Saxenda but was unable to obtain due to supply concern. We will start compounded semaglutide 0.25 mg today, and follow-up in 4 weeks. Also sending for Wegovy 0.5 mg and she is going to call the pharmacy to see if she can find although she is aware of the national shortage. 07/24/2023: Weight 199.6, BMI 29.47. Patient is welcome back to the practice, has not followed up since April due to insurance concerns, but is now following with us today. Patient was doing really well on semaglutide, but feels like she is now plateauing. Taking 0.5 mg, but interested in increasing to 1 mg. Will provide semaglutide 1 mg today, and submit for Wegovy 1 mg.Encouraged to continue with lifestyle modifications. 12/24/2023: Weight 204.1, BMI 30.14. Patient has gained since visit,, trying to get back on track. Was taking Wegovy 1 mg doing well, has been off for 6 weeks, so we will try to get her back on 1 mg and if not we will increase her to Wegovy 1.7 mg. Educated on proper use, side effects, long-term risk. 03/05/2024: Weight 203, BMI 30. Taking Wegovy 1.7 mg, will continue for another 4 weeks, and then consider increasing to 2.4 mg. If still at a plateau, consider switching over to Zepbound. Implementing more resistance training, and higher protein. Body scan reviewed today 04/02/2024: Weight 199, BMI 29: Patient congratulated on effort, continuing to lose slow, steady weight. Continue with Wegovy 1.7 mg. Encouraged to increase more resistance training, protein, and water intake. Follow-up in 4 weeks, could consider increasing Wegovy to 2.4 mg, or continuing with dose. 05/08/2024: Weight 198, BMI 29.25. Patient continuing to walk. Exercise otherwise limited due to right shoulder pain for which she is following with a chiropractor. Continue Wegovy but increase to 2.4 mg. If no improvement, consider switching over to Zepbound. Following up for physical in 1 month. 06/10/2024: Weight 201, BMI 29.74. Patient sought a plateau, will discontinue Wegovy, switch to Zepbound 2.5 mg. Discussed proper use, side effects. Follow-up in 4 to 6 weeks. 07/28/2024: Weight 198, BMI 29. Weight plateaued since last visit. Switched over to Zepbound 2.5 mg, increased to 5 mg. Her grandmother just passed, so she has been planning arrangements and exercises been off. 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 09/10/2024: Weight 197, BMI 29. Discontinuing Zepbound 2 weeks ago secondary to significant hair loss. Will hold off on all weight loss medications and follow-up in 4 weeks. Will obtain blood work prior 11/17/2024 weight 221, BMI 32. start contrave, discussed proper use and side effects, and contact office with any concerns. Discussed reinitiating wegovy in the future, will trial contrave first. Discussed referral for mounter flutes and piccolos, Patient declines at this time. Follow up in 4-6 weeks 12/24/2024: Weight 225, BMI 33. Patient feeling well mentally taking Contrave, but not noticing any significant weight loss. Will reinitiate Wegovy 0.25 mg, discussed proper use and side effect. Continue to encourage walking. States she felt best on Wegovy. # Hair loss: CBC, iron, TIBC, ferritin, ABHAY, CRP, estrogen, progesterone, testosterone, DHEA, TSH, T3, T4, were WNL, vitamin D was low, pt reports that she is taking vitamin D supplementation, vitamin B12 was low, pt recieved Vitamin B12 in office.Patient taking NutrAFUL wth improvment. Consider dermatology referral. No further workup needed at this time.Is aware GLP-1's and weight loss can promote normal hair loss. # Migraines: Adequate nutrition/hydration. Ibuprofen as needed, no red flag symptoms. Separate control, migraines have been worse since then. She is not interested in getting back on control. Taking sumatriptan as needed. If no improvement could consider alternative abortive/preventativ e therapies or imaging. #Patient taken Lexapro 5 mg, patient states that her depression has been worse secondary to weight gain, will add on Contrave # Hyperlipidemia: 08/26/2022 showing total cholesterol 294, triglycerides 323, LDL 169. Lipid panel from 12/25/2023 showing no improvement in cholesterol around 290, but improvement in triglycerides at 185, LDL 177.Based on cholesterol being 290, and cardiovascular risk factors Rosuvastatin 10 mg initiated. Lab from 09/15/2024 total cholesterol 240, LDL 151, HDL 64. Repeating lipid panel in 3-4 months. if cholesterol is still elevated consider increasing Rosuvastatin. # Left shoulder pain: followed with a chiropractor and massage therapist without significant improvement.Ordered x-rays, although patient did not obtain. Ordered MRI, showing tendinitis. Scheduled with Ortho in the next 3 weeks for cortisone injections. Follow-up in 4-6 weeks, or sooner if needed. Time spent with patient 30 minutes with greater than 50% on patient education and care coordination All quetsions answered to patients satisfaction. Patient verbalized understanding of diagnosis and treatments explained. To call sooner prior to next visit it any questions/concerns arise. Case discussed with collaborating physician Riley Quintero who reviewed the assessment and plan. Chart, medications, labs, vital signs reviewed. Dictation was accomplished with the use of [employer] voice recognition software, prone to medical misidentifications and grammatical errors. This is unintentional and the practitioner does try to identify and correct these, but some could still be present. Please do not hesitate to contact practitioner for clarification. 12/24/2024 BMI 33.0-33.9,adult (ICD-10 - Z68.33) 10/03/22: Weight 211, BMI 31.16- educated extensively on lifestyle modifications including high-protein, low carbohydrate, healthy fat, exercise, water intake, sleep hygiene, and stress relief. Patient will work on life so modifications of the next four weeks. Interested in weight loss medications. Start with Topamax 25 mg. Patient educated cannot drink alcohol on this medication. Most recent labs reviewed showing hyperlipidemia, without any insulin/diabetes concern. Patient educated on fish oil, diet, exercise. At next visit, will obtain EKG, and start phentermine 15 mg if EKG without concern. No concern for at this time. 10/31/22: weight 212, BMI 31.3- educated on lifestyle modifications. Patient went to [place], and then went to [place] and states that she has been traveling a lot and drinking more than usual. She is ready to get back on track. She has been walking more recently and focusing on portion control as well as eating earlier in the evening. She does feel some appetite suppression on metformin but is interested in starting an additional medication. She did not tolerate Topamax well. EKG's office today within normal limits. Will start phentermine 15 mg. Patient educated on side effects as well as proper use. Will follow-up in four weeks, sooner as needed.Encouraged to increase water intake. 12/05/22: weight 211.5, BMI 31.23- educated extensive and lifestyle modifications. Patient was congratulated on efforts. Taking phentermine 15 mg with compliance, without any side effects. Interested in increasing dose of 30 mg. If patient continues to have minimal weight loss, could consider GLP-1 injection such as Wegovy next visit, as at that time, patient will have three consecutive months of trying to lose weight. Patient understanding and aware of this plan. Educated to increase more formal exercise. 01/09/2023: Weight 207.3, BMI 30.61-patient congratulated on efforts, has been losing some weight. Taking phentermine 30 mg with compliance, without any side effects. Is noticing more appetite suppression on 30 mg then 15. Interested in increasing dose to 37.5. We did have a discussion about possibly switching to GLP-1 such as Wegovy, but having difficulty with supply at this time therefore we will continue phentermine 37.5 at this time. Did talk about compounded semaglutide as well, but patient states she will find it difficult to come to the office once weekly. Will increase to phentermine 37.5, and add Topamax. Patient also does admit to occasional headaches and history of migraines and this could benefit that as well. Educated on proper use, as well as side effects. 02/08/2023: Weight 205, BMI 30.27. Patient congratulated on effort. Taking phentermine 37.5, and Topamax. Noticing some appetite suppression but not significant effect. Interested in tapering off, and starting a different medication such as GLP-1 injection. Patient aware of the national shortage difficulty, but is interested in Saxenda. Did discuss proper use, and side effects of medication. We will taper phentermine, and start Saxenda. 03/12/2023: Weight 207.1, BMI 30.58. Patient expresses frustration given her current circumstances. She has not been able to obtain Saxenda from the pharmacy despite insurance approval. Currently taking phentermine 15 mg with no effect despite maintaining lifestyle modifications. Goals reevaluated and discussed incorporating increased intensity exercise in addition to walking as tolerated. Contacted [facility] pharmacy in [place] who states they cannot dispense Saxenda secondary to supply issues. Called [facility] specialty pharmacy, and Saxenda continues to be on backorder until unknown date. Will send to other [facility] pharmacy in [place], but patient will continue to call pharmacies to see who has availability, and happy to send to pharmacy when she can find one. She is understanding and aware. 04/12/2023: Weight 209 pounds, BMI 30.86. Patient did gain weight, but upon review of body composition scan she did gain 3 pounds of muscle, and lost 1 pound of fat. She was congratulated. Has been working hard with exercise and focusing on portion control but she states that she is going in the opposite direction because she is off of phentermine. Is interested in weight loss medications, tried sending Saxenda but was unable to obtain due to supply concern. We will start compounded semaglutide 0.25 mg today, and follow-up in 4 weeks. Also sending for Wegovy 0.5 mg and she is going to call the pharmacy to see if she can find although she is aware of the national shortage. 07/24/2023: Weight 199.6, BMI 29.47. Patient is welcome back to the practice, has not followed up since April due to insurance concerns, but is now following with us today. Patient was doing really well on semaglutide, but feels like she is now plateauing. Taking 0.5 mg, but interested in increasing to 1 mg. Will provide semaglutide 1 mg today, and submit for Wegovy 1 mg.Encouraged to continue with lifestyle modifications. 12/24/2023: Weight 204.1, BMI 30.14. Patient has gained since visit,, trying to get back on track. Was taking Wegovy 1 mg doing well, has been off for 6 weeks, so we will try to get her back on 1 mg and if not we will increase her to Wegovy 1.7 mg. Educated on proper use, side effects, long-term risk. 03/05/2024: Weight 203, BMI 30. Taking Wegovy 1.7 mg, will continue for another 4 weeks, and then consider increasing to 2.4 mg. If still at a plateau, consider switching over to Zepbound. Implementing more resistance training, and higher protein. Body scan reviewed today 04/02/2024: Weight 199, BMI 29: Patient congratulated on effort, continuing to lose slow, steady weight. Continue with Wegovy 1.7 mg. Encouraged to increase more resistance training, protein, and water intake. Follow-up in 4 weeks, could consider increasing Wegovy to 2.4 mg, or continuing with dose. 05/08/2024: Weight 198, BMI 29.25. Patient continuing to walk. Exercise otherwise limited due to right shoulder pain for which she is following with a chiropractor. Continue Wegovy but increase to 2.4 mg. If no improvement, consider switching over to Zepbound. Following up for physical in 1 month. 06/10/2024: Weight 201, BMI 29.74. Patient sought a plateau, will discontinue Wegovy, switch to Zepbound 2.5 mg. Discussed proper use, side effects. Follow-up in 4 to 6 weeks. 07/28/2024: Weight 198, BMI 29. Weight plateaued since last visit. Switched over to Zepbound 2.5 mg, increased to 5 mg. Her grandmother just passed, so she has been planning arrangements and exercises been off. 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 09/10/2024: Weight 197, BMI 29. Discontinuing Zepbound 2 weeks ago secondary to significant hair loss. Will hold off on all weight loss medications and follow-up in 4 weeks. Will obtain blood work prior 11/17/2024 weight 221, BMI 32. start contrave, discussed proper use and side effects, and contact office with any concerns. Discussed reinitiating wegovy in the future, will trial contrave first. Discussed referral for mounter flutes and piccolos, Patient declines at this time. Follow up in 4-6 weeks 12/24/2024: Weight 225, BMI 33. Patient feeling well mentally taking Contrave, but not noticing any significant weight loss. Will reinitiate Wegovy 0.25 mg, discussed proper use and side effect. Continue to encourage walking. States she felt best on Wegovy. # Hair loss: CBC, iron, TIBC, ferritin, ABHAY, CRP, estrogen, progesterone, testosterone, DHEA, TSH, T3, T4, were WNL, vitamin D was low, pt reports that she is taking vitamin D supplementation, vitamin B12 was low, pt recieved Vitamin B12 in office.Patient taking NutrAFUL wth improvment. Consider dermatology referral. No further workup needed at this time.Is aware GLP-1's and weight loss can promote normal hair loss. # Migraines: Adequate nutrition/hydration. Ibuprofen as needed, no red flag symptoms. Separate control, migraines have been worse since then. She is not interested in getting back on control. Taking sumatriptan as needed. If no improvement could consider alternative abortive/preventativ e therapies or imaging. #Patient taken Lexapro 5 mg, patient states that her depression has been worse secondary to weight gain, will add on Contrave # Hyperlipidemia: 08/26/2022 showing total cholesterol 294, triglycerides 323, LDL 169. Lipid panel from 12/25/2023 showing no improvement in cholesterol around 290, but improvement in triglycerides at 185, LDL 177.Based on cholesterol being 290, and cardiovascular risk factors Rosuvastatin 10 mg initiated. Lab from 09/15/2024 total cholesterol 240, LDL 151, HDL 64. Repeating lipid panel in 3-4 months. if cholesterol is still elevated consider increasing Rosuvastatin. # Left shoulder pain: followed with a chiropractor and massage therapist without significant improvement.Ordered x-rays, although patient did not obtain. Ordered MRI, showing tendinitis. Scheduled with Ortho in the next 3 weeks for cortisone injections. Follow-up in 4-6 weeks, or sooner if needed. Time spent with patient 30 minutes with greater than 50% on patient education and care coordination All quetsions answered to patients satisfaction. Patient verbalized understanding of diagnosis and treatments explained. To call sooner prior to next visit it any questions/concerns arise. Case discussed with collaborating physician Riley Quintero who reviewed the assessment and plan. Chart, medications, labs, vital signs reviewed. Dictation was accomplished with the use of [employer] voice recognition software, prone to medical misidentifications and grammatical errors. This is unintentional and the practitioner does try to identify and correct these, but some could still be present. Please do not hesitate to contact practitioner for clarification. 03/04/2025 Obesity (BMI 30-39.9) (ICD-10 - E66.9) 10/03/22: Weight 211, BMI 31.16- educated extensively on lifestyle modifications including high-protein, low carbohydrate, healthy fat, exercise, water intake, sleep hygiene, and stress relief. Patient will work on life so modifications of the next four weeks. Interested in weight loss medications. Start with Topamax 25 mg. Patient educated cannot drink alcohol on this medication. Most recent labs reviewed showing hyperlipidemia, without any insulin/diabetes concern. Patient educated on fish oil, diet, exercise. At next visit, will obtain EKG, and start phentermine 15 mg if EKG without concern. No concern for at this time. 10/31/22: weight 212, BMI 31.3- educated on lifestyle modifications. Patient went to [place], and then went to [place] and states that she has been traveling a lot and drinking more than usual. She is ready to get back on track. She has been walking more recently and focusing on portion control as well as eating earlier in the evening. She does feel some appetite suppression on metformin but is interested in starting an additional medication. She did not tolerate Topamax well. EKG's office today within normal limits. Will start phentermine 15 mg. Patient educated on side effects as well as proper use. Will follow-up in four weeks, sooner as needed.Encouraged to increase water intake. 12/05/22: weight 211.5, BMI 31.23- educated extensive and lifestyle modifications. Patient was congratulated on efforts. Taking phentermine 15 mg with compliance, without any side effects. Interested in increasing dose of 30 mg. If patient continues to have minimal weight loss, could consider GLP-1 injection such as Wegovy next visit, as at that time, patient will have three consecutive months of trying to lose weight. Patient understanding and aware of this plan. Educated to increase more formal exercise. 01/09/2023: Weight 207.3, BMI 30.61-patient congratulated on efforts, has been losing some weight. Taking phentermine 30 mg with compliance, without any side effects. Is noticing more appetite suppression on 30 mg then 15. Interested in increasing dose to 37.5. We did have a discussion about possibly switching to GLP-1 such as Wegovy, but having difficulty with supply at this time therefore we will continue phentermine 37.5 at this time. Did talk about compounded semaglutide as well, but patient states she will find it difficult to come to the office once weekly. Will increase to phentermine 37.5, and add Topamax. Patient also does admit to occasional headaches and history of migraines and this could benefit that as well. Educated on proper use, as well as side effects. 02/08/2023: Weight 205, BMI 30.27. Patient congratulated on effort. Taking phentermine 37.5, and Topamax. Noticing some appetite suppression but not significant effect. Interested in tapering off, and starting a different medication such as GLP-1 injection. Patient aware of the national shortage difficulty, but is interested in Saxenda. Did discuss proper use, and side effects of medication. We will taper phentermine, and start Saxenda. 03/12/2023: Weight 207.1, BMI 30.58. Patient expresses frustration given her current circumstances. She has not been able to obtain Saxenda from the pharmacy despite insurance approval. Currently taking phentermine 15 mg with no effect despite maintaining lifestyle modifications. Goals reevaluated and discussed incorporating increased intensity exercise in addition to walking as tolerated. Contacted [facility] pharmacy in [place] who states they cannot dispense Saxenda secondary to supply issues. Called [facility] specialty pharmacy, and Saxenda continues to be on backorder until unknown date. Will send to other [facility] pharmacy in [place], but patient will continue to call pharmacies to see who has availability, and happy to send to pharmacy when she can find one. She is understanding and aware. 04/12/2023: Weight 209 pounds, BMI 30.86. Patient did gain weight, but upon review of body composition scan she did gain 3 pounds of muscle, and lost 1 pound of fat. She was congratulated. Has been working hard with exercise and focusing on portion control but she states that she is going in the opposite direction because she is off of phentermine. Is interested in weight loss medications, tried sending Saxenda but was unable to obtain due to supply concern. We will start compounded semaglutide 0.25 mg today, and follow-up in 4 weeks. Also sending for Wegovy 0.5 mg and she is going to call the pharmacy to see if she can find although she is aware of the national shortage. 07/24/2023: Weight 199.6, BMI 29.47. Patient is welcome back to the practice, has not followed up since April due to insurance concerns, but is now following with us today. Patient was doing really well on semaglutide, but feels like she is now plateauing. Taking 0.5 mg, but interested in increasing to 1 mg. Will provide semaglutide 1 mg today, and submit for Wegovy 1 mg.Encouraged to continue with lifestyle modifications. 12/24/2023: Weight 204.1, BMI 30.14. Patient has gained since visit,, trying to get back on track. Was taking Wegovy 1 mg doing well, has been off for 6 weeks, so we will try to get her back on 1 mg and if not we will increase her to Wegovy 1.7 mg. Educated on proper use, side effects, long-term risk. 03/05/2024: Weight 203, BMI 30. Taking Wegovy 1.7 mg, will continue for another 4 weeks, and then consider increasing to 2.4 mg. If still at a plateau, consider switching over to Zepbound. Implementing more resistance training, and higher protein. Body scan reviewed today 04/02/2024: Weight 199, BMI 29: Patient congratulated on effort, continuing to lose slow, steady weight. Continue with Wegovy 1.7 mg. Encouraged to increase more resistance training, protein, and water intake. Follow-up in 4 weeks, could consider increasing Wegovy to 2.4 mg, or continuing with dose. 05/08/2024: Weight 198, BMI 29.25. Patient continuing to walk. Exercise otherwise limited due to right shoulder pain for which she is following with a chiropractor. Continue Wegovy but increase to 2.4 mg. If no improvement, consider switching over to Zepbound. Following up for physical in 1 month. 06/10/2024: Weight 201, BMI 29.74. Patient sought a plateau, will discontinue Wegovy, switch to Zepbound 2.5 mg. Discussed proper use, side effects. Follow-up in 4 to 6 weeks. 07/28/2024: Weight 198, BMI 29. Weight plateaued since last visit. Switched over to Zepbound 2.5 mg, increased to 5 mg. Her grandmother just passed, so she has been planning arrangements and exercises been off. 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 09/10/2024: Weight 197, BMI 29. Discontinuing Zepbound 2 weeks ago secondary to significant hair loss. Will hold off on all weight loss medications and follow-up in 4 weeks. Will obtain blood work prior 11/17/2024 weight 221, BMI 32. start contrave, discussed proper use and side effects, and contact office with any concerns. Discussed reinitiating wegovy in the future, will trial contrave first. Discussed referral for mounter flutes and piccolos, Patient declines at this time. Follow up in 4-6 weeks 12/24/2024: Weight 225, BMI 33. Patient feeling well mentally taking Contrave, but not noticing any significant weight loss. Will reinitiate Wegovy 0.25 mg, discussed proper use and side effect. Continue to encourage walking. States she felt best on Wegovy. 03/04/2025: Weight 227, BMI 33. Continue with Wegovy 0.25 mg x 4 weeks, increasing 0.5 mg of Wegovy today March 04, 2025. Continue to encourage walking, and resistance training. Patient states hair loss is much improved. # Hair loss: CBC, iron, TIBC, ferritin, ABHAY, CRP, estrogen, progesterone, testosterone, DHEA, TSH, T3, T4, were WNL, vitamin D was low, pt reports that she is taking vitamin D supplementation, vitamin B12 was low, pt recieved Vitamin B12 in office.Patient taking NutrAFUL wth improvment. Consider dermatology referral. No further workup needed at this time.Is aware GLP-1's and weight loss can promote normal hair loss. # Migraines: Adequate nutrition/hydration. Ibuprofen as needed, no red flag symptoms. Separate control, migraines have been worse since then. She is not interested in getting back on control. Taking sumatriptan as needed. If no improvement could consider alternative abortive/preventativ e therapies or imaging. #Patient taken Lexapro 5 mg, patient states that her depression has been worse secondary to weight gain, will add on Contrave # Hyperlipidemia: 08/26/2022 showing total cholesterol 294, triglycerides 323, LDL 169. Lipid panel from 12/25/2023 showing no improvement in cholesterol around 290, but improvement in triglycerides at 185, LDL 177.Based on cholesterol being 290, and cardiovascular risk factors Rosuvastatin 10 mg initiated. Lab from 09/15/2024 total cholesterol 240, LDL 151, HDL 64. Repeating lipid panel in 3-4 months. if cholesterol is still elevated consider increasing Rosuvastatin. # Left shoulder pain: followed with a chiropractor and massage therapist without significant improvement.Ordered x-rays, although patient did not obtain. Ordered MRI, showing tendinitis. Scheduled with Ortho in the next 3 weeks for cortisone injections. Follow-up in 4-6 weeks, or sooner if needed. Time spent with patient 30 minutes with greater than 50% on patient education and care coordination All quetsions answered to patients satisfaction. Patient verbalized understanding of diagnosis and treatments explained. To call sooner prior to next visit it any questions/concerns arise. Case discussed with collaborating physician Riley Quintero who reviewed the assessment and plan. Chart, medications, labs, vital signs reviewed. Dictation was accomplished with the use of [employer] voice recognition software, prone to medical misidentifications and grammatical errors. This is unintentional and the practitioner does try to identify and correct these, but some could still be present. Please do not hesitate to contact practitioner for clarification. 04/13/2025 Obesity (BMI 30-39.9) (ICD-10 - E66.9) 10/03/22: Weight 211, BMI 31.16- educated extensively on lifestyle modifications including high-protein, low carbohydrate, healthy fat, exercise, water intake, sleep hygiene, and stress relief. Patient will work on life so modifications of the next four weeks. Interested in weight loss medications. Start with Topamax 25 mg. Patient educated cannot drink alcohol on this medication. Most recent labs reviewed showing hyperlipidemia, without any insulin/diabetes concern. Patient educated on fish oil, diet, exercise. At next visit, will obtain EKG, and start phentermine 15 mg if EKG without concern. No concern for at this time. 10/31/22: weight 212, BMI 31.3- educated on lifestyle modifications. Patient went to [place], and then went to [place] and states that she has been traveling a lot and drinking more than usual. She is ready to get back on track. She has been walking more recently and focusing on portion control as well as eating earlier in the evening. She does feel some appetite suppression on metformin but is interested in starting an additional medication. She did not tolerate Topamax well. EKG's office today within normal limits. Will start phentermine 15 mg. Patient educated on side effects as well as proper use. Will follow-up in four weeks, sooner as needed.Encouraged to increase water intake. 12/05/22: weight 211.5, BMI 31.23- educated extensive and lifestyle modifications. Patient was congratulated on efforts. Taking phentermine 15 mg with compliance, without any side effects. Interested in increasing dose of 30 mg. If patient continues to have minimal weight loss, could consider GLP-1 injection such as Wegovy next visit, as at that time, patient will have three consecutive months of trying to lose weight. Patient understanding and aware of this plan. Educated to increase more formal exercise. 01/09/2023: Weight 207.3, BMI 30.61-patient congratulated on efforts, has been losing some weight. Taking phentermine 30 mg with compliance, without any side effects. Is noticing more appetite suppression on 30 mg then 15. Interested in increasing dose to 37.5. We did have a discussion about possibly switching to GLP-1 such as Wegovy, but having difficulty with supply at this time therefore we will continue phentermine 37.5 at this time. Did talk about compounded semaglutide as well, but patient states she will find it difficult to come to the office once weekly. Will increase to phentermine 37.5, and add Topamax. Patient also does admit to occasional headaches and history of migraines and this could benefit that as well. Educated on proper use, as well as side effects. 02/08/2023: Weight 205, BMI 30.27. Patient congratulated on effort. Taking phentermine 37.5, and Topamax. Noticing some appetite suppression but not significant effect. Interested in tapering off, and starting a different medication such as GLP-1 injection. Patient aware of the national shortage difficulty, but is interested in Saxenda. Did discuss proper use, and side effects of medication. We will taper phentermine, and start Saxenda. 03/12/2023: Weight 207.1, BMI 30.58. Patient expresses frustration given her current circumstances. She has not been able to obtain Saxenda from the pharmacy despite insurance approval. Currently taking phentermine 15 mg with no effect despite maintaining lifestyle modifications. Goals reevaluated and discussed incorporating increased intensity exercise in addition to walking as tolerated. Contacted [facility] pharmacy in [place] who states they cannot dispense Saxenda secondary to supply issues. Called [facility] specialty pharmacy, and Saxenda continues to be on backorder until unknown date. Will send to other [facility] pharmacy in [place], but patient will continue to call pharmacies to see who has availability, and happy to send to pharmacy when she can find one. She is understanding and aware. 04/12/2023: Weight 209 pounds, BMI 30.86. Patient did gain weight, but upon review of body composition scan she did gain 3 pounds of muscle, and lost 1 pound of fat. She was congratulated. Has been working hard with exercise and focusing on portion control but she states that she is going in the opposite direction because she is off of phentermine. Is interested in weight loss medications, tried sending Saxenda but was unable to obtain due to supply concern. We will start compounded semaglutide 0.25 mg today, and follow-up in 4 weeks. Also sending for Wegovy 0.5 mg and she is going to call the pharmacy to see if she can find although she is aware of the national shortage. 07/24/2023: Weight 199.6, BMI 29.47. Patient is welcome back to the practice, has not followed up since April due to insurance concerns, but is now following with us today. Patient was doing really well on semaglutide, but feels like she is now plateauing. Taking 0.5 mg, but interested in increasing to 1 mg. Will provide semaglutide 1 mg today, and submit for Wegovy 1 mg.Encouraged to continue with lifestyle modifications. 12/24/2023: Weight 204.1, BMI 30.14. Patient has gained since visit,, trying to get back on track. Was taking Wegovy 1 mg doing well, has been off for 6 weeks, so we will try to get her back on 1 mg and if not we will increase her to Wegovy 1.7 mg. Educated on proper use, side effects, long-term risk. 03/05/2024: Weight 203, BMI 30. Taking Wegovy 1.7 mg, will continue for another 4 weeks, and then consider increasing to 2.4 mg. If still at a plateau, consider switching over to Zepbound. Implementing more resistance training, and higher protein. Body scan reviewed today 04/02/2024: Weight 199, BMI 29: Patient congratulated on effort, continuing to lose slow, steady weight. Continue with Wegovy 1.7 mg. Encouraged to increase more resistance training, protein, and water intake. Follow-up in 4 weeks, could consider increasing Wegovy to 2.4 mg, or continuing with dose. 05/08/2024: Weight 198, BMI 29.25. Patient continuing to walk. Exercise otherwise limited due to right shoulder pain for which she is following with a chiropractor. Continue Wegovy but increase to 2.4 mg. If no improvement, consider switching over to Zepbound. Following up for physical in 1 month. 06/10/2024: Weight 201, BMI 29.74. Patient sought a plateau, will discontinue Wegovy, switch to Zepbound 2.5 mg. Discussed proper use, side effects. Follow-up in 4 to 6 weeks. 07/28/2024: Weight 198, BMI 29. Weight plateaued since last visit. Switched over to Zepbound 2.5 mg, increased to 5 mg. Her grandmother just passed, so she has been planning arrangements and exercises been off. 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 09/10/2024: Weight 197, BMI 29. Discontinuing Zepbound 2 weeks ago secondary to significant hair loss. Will hold off on all weight loss medications and follow-up in 4 weeks. Will obtain blood work prior 11/17/2024 weight 221, BMI 32. start contrave, discussed proper use and side effects, and contact office with any concerns. Discussed reinitiating wegovy in the future, will trial contrave first. Discussed referral for mounter flutes and piccolos, Patient declines at this time. Follow up in 4-6 weeks 12/24/2024: Weight 225, BMI 33. Patient feeling well mentally taking Contrave, but not noticing any significant weight loss. Will reinitiate Wegovy 0.25 mg, discussed proper use and side effect. Continue to encourage walking. States she felt best on Wegovy. 03/04/2025: Weight 227, BMI 33. Continue with Wegovy 0.25 mg x 4 weeks, increasing 0.5 mg of Wegovy today March 04, 2025. Continue to encourage walking, and resistance training. Patient states hair loss is much improved. 04/13/2025: Weight 221, BMI 32. Losing slow, steady weight. Very pleased with progress overall. Increase Wegovy to 1 mg. Continue with exercise walking 3 miles daily, and focusing on increasing resistance training. # Hair loss: Ongoing hair loss/fatigue. TSH, T3 and T4 within normal limits back in September 2024 but patient states that her cousins have thyroid disease and she is requesting autoimmune workup. Will order autoimmune panel. Patient taking NutrAFUL wth improvment. Consider dermatology referral. No further workup needed at this time.Is aware GLP-1's and weight loss can promote normal hair loss. # Wart of left hand, refer to dermatology. [id number] regimen not helping # Migraines: Adequate nutrition/hydration. Ibuprofen as needed, no red flag symptoms. Separate control, migraines have been worse since then. She is not interested in getting back on control. Taking sumatriptan as needed. If no improvement could consider alternative abortive/preventativ e therapies or imaging. #Patient taken Lexapro 5 mg, patient states that her depression has been worse secondary to weight gain, will add on Contrave # Hyperlipidemia: 08/26/2022 showing total cholesterol 294, triglycerides 323, LDL 169. Lipid panel from 12/25/2023 showing no improvement in cholesterol around 290, but improvement in triglycerides at 185, LDL 177.Based on cholesterol being 290, and cardiovascular risk factors Rosuvastatin 10 mg initiated. Lab from 09/15/2024 total cholesterol 240, LDL 151, HDL 64. Repeating lipid panel in 3-4 months. if cholesterol is still elevated consider increasing Rosuvastatin. # Left shoulder pain: followed with a chiropractor and massage therapist without significant improvement.Ordered x-rays, although patient did not obtain. Ordered MRI, showing tendinitis. Scheduled with Ortho in the next 3 weeks for cortisone injections. Follow-up in 4-6 weeks, or sooner if needed. Time spent with patient 30 minutes with greater than 50% on patient education and care coordination All quetsions answered to patients satisfaction. Patient verbalized understanding of diagnosis and treatments explained. To call sooner prior to next visit it any questions/concerns arise. Case discussed with collaborating physician Riley Quintero who reviewed the assessment and plan. Chart, medications, labs, vital signs reviewed. Dictation was accomplished with the use of [employer] voice recognition software, prone to medical misidentifications and grammatical errors. This is unintentional and the practitioner does try to identify and correct these, but some could still be present. Please do not hesitate to contact practitioner for clarification. 04/13/2025 BMI 32.0-32.9,adult (ICD-10 - Z68.32) 10/03/22: Weight 211, BMI 31.16- educated extensively on lifestyle modifications including high-protein, low carbohydrate, healthy fat, exercise, water intake, sleep hygiene, and stress relief. Patient will work on life so modifications of the next four weeks. Interested in weight loss medications. Start with Topamax 25 mg. Patient educated cannot drink alcohol on this medication. Most recent labs reviewed showing hyperlipidemia, without any insulin/diabetes concern. Patient educated on fish oil, diet, exercise. At next visit, will obtain EKG, and start phentermine 15 mg if EKG without concern. No concern for at this time. 10/31/22: weight 212, BMI 31.3- educated on lifestyle modifications. Patient went to [place], and then went to [place] and states that she has been traveling a lot and drinking more than usual. She is ready to get back on track. She has been walking more recently and focusing on portion control as well as eating earlier in the evening. She does feel some appetite suppression on metformin but is interested in starting an additional medication. She did not tolerate Topamax well. EKG's office today within normal limits. Will start phentermine 15 mg. Patient educated on side effects as well as proper use. Will follow-up in four weeks, sooner as needed.Encouraged to increase water intake. 12/05/22: weight 211.5, BMI 31.23- educated extensive and lifestyle modifications. Patient was congratulated on efforts. Taking phentermine 15 mg with compliance, without any side effects. Interested in increasing dose of 30 mg. If patient continues to have minimal weight loss, could consider GLP-1 injection such as Wegovy next visit, as at that time, patient will have three consecutive months of trying to lose weight. Patient understanding and aware of this plan. Educated to increase more formal exercise. 01/09/2023: Weight 207.3, BMI 30.61-patient congratulated on efforts, has been losing some weight. Taking phentermine 30 mg with compliance, without any side effects. Is noticing more appetite suppression on 30 mg then 15. Interested in increasing dose to 37.5. We did have a discussion about possibly switching to GLP-1 such as Wegovy, but having difficulty with supply at this time therefore we will continue phentermine 37.5 at this time. Did talk about compounded semaglutide as well, but patient states she will find it difficult to come to the office once weekly. Will increase to phentermine 37.5, and add Topamax. Patient also does admit to occasional headaches and history of migraines and this could benefit that as well. Educated on proper use, as well as side effects. 02/08/2023: Weight 205, BMI 30.27. Patient congratulated on effort. Taking phentermine 37.5, and Topamax. Noticing some appetite suppression but not significant effect. Interested in tapering off, and starting a different medication such as GLP-1 injection. Patient aware of the national shortage difficulty, but is interested in Saxenda. Did discuss proper use, and side effects of medication. We will taper phentermine, and start Saxenda. 03/12/2023: Weight 207.1, BMI 30.58. Patient expresses frustration given her current circumstances. She has not been able to obtain Saxenda from the pharmacy despite insurance approval. Currently taking phentermine 15 mg with no effect despite maintaining lifestyle modifications. Goals reevaluated and discussed incorporating increased intensity exercise in addition to walking as tolerated. Contacted [facility] pharmacy in [place] who states they cannot dispense Saxenda secondary to supply issues. Called [facility] specialty pharmacy, and Saxenda continues to be on backorder until unknown date. Will send to other [facility] pharmacy in [place], but patient will continue to call pharmacies to see who has availability, and happy to send to pharmacy when she can find one. She is understanding and aware. 04/12/2023: Weight 209 pounds, BMI 30.86. Patient did gain weight, but upon review of body composition scan she did gain 3 pounds of muscle, and lost 1 pound of fat. She was congratulated. Has been working hard with exercise and focusing on portion control but she states that she is going in the opposite direction because she is off of phentermine. Is interested in weight loss medications, tried sending Saxenda but was unable to obtain due to supply concern. We will start compounded semaglutide 0.25 mg today, and follow-up in 4 weeks. Also sending for Wegovy 0.5 mg and she is going to call the pharmacy to see if she can find although she is aware of the national shortage. 07/24/2023: Weight 199.6, BMI 29.47. Patient is welcome back to the practice, has not followed up since April due to insurance concerns, but is now following with us today. Patient was doing really well on semaglutide, but feels like she is now plateauing. Taking 0.5 mg, but interested in increasing to 1 mg. Will provide semaglutide 1 mg today, and submit for Wegovy 1 mg.Encouraged to continue with lifestyle modifications. 12/24/2023: Weight 204.1, BMI 30.14. Patient has gained since visit,, trying to get back on track. Was taking Wegovy 1 mg doing well, has been off for 6 weeks, so we will try to get her back on 1 mg and if not we will increase her to Wegovy 1.7 mg. Educated on proper use, side effects, long-term risk. 03/05/2024: Weight 203, BMI 30. Taking Wegovy 1.7 mg, will continue for another 4 weeks, and then consider increasing to 2.4 mg. If still at a plateau, consider switching over to Zepbound. Implementing more resistance training, and higher protein. Body scan reviewed today 04/02/2024: Weight 199, BMI 29: Patient congratulated on effort, continuing to lose slow, steady weight. Continue with Wegovy 1.7 mg. Encouraged to increase more resistance training, protein, and water intake. Follow-up in 4 weeks, could consider increasing Wegovy to 2.4 mg, or continuing with dose. 05/08/2024: Weight 198, BMI 29.25. Patient continuing to walk. Exercise otherwise limited due to right shoulder pain for which she is following with a chiropractor. Continue Wegovy but increase to 2.4 mg. If no improvement, consider switching over to Zepbound. Following up for physical in 1 month. 06/10/2024: Weight 201, BMI 29.74. Patient sought a plateau, will discontinue Wegovy, switch to Zepbound 2.5 mg. Discussed proper use, side effects. Follow-up in 4 to 6 weeks. 07/28/2024: Weight 198, BMI 29. Weight plateaued since last visit. Switched over to Zepbound 2.5 mg, increased to 5 mg. Her grandmother just passed, so she has been planning arrangements and exercises been off. 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 09/10/2024: Weight 197, BMI 29. Discontinuing Zepbound 2 weeks ago secondary to significant hair loss. Will hold off on all weight loss medications and follow-up in 4 weeks. Will obtain blood work prior 11/17/2024 weight 221, BMI 32. start contrave, discussed proper use and side effects, and contact office with any concerns. Discussed reinitiating wegovy in the future, will trial contrave first. Discussed referral for mounter flutes and piccolos, Patient declines at this time. Follow up in 4-6 weeks 12/24/2024: Weight 225, BMI 33. Patient feeling well mentally taking Contrave, but not noticing any significant weight loss. Will reinitiate Wegovy 0.25 mg, discussed proper use and side effect. Continue to encourage walking. States she felt best on Wegovy. 03/04/2025: Weight 227, BMI 33. Continue with Wegovy 0.25 mg x 4 weeks, increasing 0.5 mg of Wegovy today March 04, 2025. Continue to encourage walking, and resistance training. Patient states hair loss is much improved. 04/13/2025: Weight 221, BMI 32. Losing slow, steady weight. Very pleased with progress overall. Increase Wegovy to 1 mg. Continue with exercise walking 3 miles daily, and focusing on increasing resistance training. # Hair loss: Ongoing hair loss/fatigue. TSH, T3 and T4 within normal limits back in September 2024 but patient states that her cousins have thyroid disease and she is requesting autoimmune workup. Will order autoimmune panel. Patient taking NutrAFUL wth improvment. Consider dermatology referral. No further workup needed at this time.Is aware GLP-1's and weight loss can promote normal hair loss. # Wart of left hand, refer to dermatology. Ezxw-pgn-nugmfmi regimen not helping # Migraines: Adequate nutrition/hydration. Ibuprofen as needed, no red flag symptoms. Separate control, migraines have been worse since then. She is not interested in getting back on control. Taking sumatriptan as needed. If no improvement could consider alternative abortive/preventativ e therapies or imaging. #Patient taken Lexapro 5 mg, patient states that her depression has been worse secondary to weight gain, will add on Contrave # Hyperlipidemia: 08/26/2022 showing total cholesterol 294, triglycerides 323, LDL 169. Lipid panel from 12/25/2023 showing no improvement in cholesterol around 290, but improvement in triglycerides at 185, LDL 177.Based on cholesterol being 290, and cardiovascular risk factors Rosuvastatin 10 mg initiated. Lab from 09/15/2024 total cholesterol 240, LDL 151, HDL 64. Repeating lipid panel in 3-4 months. if cholesterol is still elevated consider increasing Rosuvastatin. # Left shoulder pain: followed with a chiropractor and massage therapist without significant improvement.Ordered x-rays, although patient did not obtain. Ordered MRI, showing tendinitis. Scheduled with Ortho in the next 3 weeks for cortisone injections. Follow-up in 4-6 weeks, or sooner if needed. Time spent with patient 30 minutes with greater than 50% on patient education and care coordination All quetsions answered to patients satisfaction. Patient verbalized understanding of diagnosis and treatments explained. To call sooner prior to next visit it any questions/concerns arise. Case discussed with collaborating physician Riley Quintero who reviewed the assessment and plan. Chart, medications, labs, vital signs reviewed. Dictation was accomplished with the use of [employer] voice recognition software, prone to medical misidentifications and grammatical errors. This is unintentional and the practitioner does try to identify and correct these, but some could still be present. Please do not hesitate to contact practitioner for clarification. 04/23/2025 Obesity (BMI 30-39.9) (ICD-10 - E66.9) 04/13/2025 Pain, joint, shoulder, left (ICD-10 - M25.512) 10/03/22: Weight 211, BMI 31.16- educated extensively on lifestyle modifications including high-protein, low carbohydrate, healthy fat, exercise, water intake, sleep hygiene, and stress relief. Patient will work on life so modifications of the next four weeks. Interested in weight loss medications. Start with Topamax 25 mg. Patient educated cannot drink alcohol on this medication. Most recent labs reviewed showing hyperlipidemia, without any insulin/diabetes concern. Patient educated on fish oil, diet, exercise. At next visit, will obtain EKG, and start phentermine 15 mg if EKG without concern. No concern for at this time. 10/31/22: weight 212, BMI 31.3- educated on lifestyle modifications. Patient went to [place], and then went to [place] and states that she has been traveling a lot and drinking more than usual. She is ready to get back on track. She has been walking more recently and focusing on portion control as well as eating earlier in the evening. She does feel some appetite suppression on metformin but is interested in starting an additional medication. She did not tolerate Topamax well. EKG's office today within normal limits. Will start phentermine 15 mg. Patient educated on side effects as well as proper use. Will follow-up in four weeks, sooner as needed.Encouraged to increase water intake. 12/05/22: weight 211.5, BMI 31.23- educated extensive and lifestyle modifications. Patient was congratulated on efforts. Taking phentermine 15 mg with compliance, without any side effects. Interested in increasing dose of 30 mg. If patient continues to have minimal weight loss, could consider GLP-1 injection such as Wegovy next visit, as at that time, patient will have three consecutive months of trying to lose weight. Patient understanding and aware of this plan. Educated to increase more formal exercise. 01/09/2023: Weight 207.3, BMI 30.61-patient congratulated on efforts, has been losing some weight. Taking phentermine 30 mg with compliance, without any side effects. Is noticing more appetite suppression on 30 mg then 15. Interested in increasing dose to 37.5. We did have a discussion about possibly switching to GLP-1 such as Wegovy, but having difficulty with supply at this time therefore we will continue phentermine 37.5 at this time. Did talk about compounded semaglutide as well, but patient states she will find it difficult to come to the office once weekly. Will increase to phentermine 37.5, and add Topamax. Patient also does admit to occasional headaches and history of migraines and this could benefit that as well. Educated on proper use, as well as side effects. 02/08/2023: Weight 205, BMI 30.27. Patient congratulated on effort. Taking phentermine 37.5, and Topamax. Noticing some appetite suppression but not significant effect. Interested in tapering off, and starting a different medication such as GLP-1 injection. Patient aware of the national shortage difficulty, but is interested in Saxenda. Did discuss proper use, and side effects of medication. We will taper phentermine, and start Saxenda. 03/12/2023: Weight 207.1, BMI 30.58. Patient expresses frustration given her current circumstances. She has not been able to obtain Saxenda from the pharmacy despite insurance approval. Currently taking phentermine 15 mg with no effect despite maintaining lifestyle modifications. Goals reevaluated and discussed incorporating increased intensity exercise in addition to walking as tolerated. Contacted [facility] pharmacy in [place] who states they cannot dispense Saxenda secondary to supply issues. Called [facility] specialty pharmacy, and Saxenda continues to be on backorder until unknown date. Will send to other [facility] pharmacy in [place], but patient will continue to call pharmacies to see who has availability, and happy to send to pharmacy when she can find one. She is understanding and aware. 04/12/2023: Weight 209 pounds, BMI 30.86. Patient did gain weight, but upon review of body composition scan she did gain 3 pounds of muscle, and lost 1 pound of fat. She was congratulated. Has been working hard with exercise and focusing on portion control but she states that she is going in the opposite direction because she is off of phentermine. Is interested in weight loss medications, tried sending Saxenda but was unable to obtain due to supply concern. We will start compounded semaglutide 0.25 mg today, and follow-up in 4 weeks. Also sending for Wegovy 0.5 mg and she is going to call the pharmacy to see if she can find although she is aware of the national shortage. 07/24/2023: Weight 199.6, BMI 29.47. Patient is welcome back to the practice, has not followed up since April due to insurance concerns, but is now following with us today. Patient was doing really well on semaglutide, but feels like she is now plateauing. Taking 0.5 mg, but interested in increasing to 1 mg. Will provide semaglutide 1 mg today, and submit for Wegovy 1 mg.Encouraged to continue with lifestyle modifications. 12/24/2023: Weight 204.1, BMI 30.14. Patient has gained since visit,, trying to get back on track. Was taking Wegovy 1 mg doing well, has been off for 6 weeks, so we will try to get her back on 1 mg and if not we will increase her to Wegovy 1.7 mg. Educated on proper use, side effects, long-term risk. 03/05/2024: Weight 203, BMI 30. Taking Wegovy 1.7 mg, will continue for another 4 weeks, and then consider increasing to 2.4 mg. If still at a plateau, consider switching over to Zepbound. Implementing more resistance training, and higher protein. Body scan reviewed today 04/02/2024: Weight 199, BMI 29: Patient congratulated on effort, continuing to lose slow, steady weight. Continue with Wegovy 1.7 mg. Encouraged to increase more resistance training, protein, and water intake. Follow-up in 4 weeks, could consider increasing Wegovy to 2.4 mg, or continuing with dose. 05/08/2024: Weight 198, BMI 29.25. Patient continuing to walk. Exercise otherwise limited due to right shoulder pain for which she is following with a chiropractor. Continue Wegovy but increase to 2.4 mg. If no improvement, consider switching over to Zepbound. Following up for physical in 1 month. 06/10/2024: Weight 201, BMI 29.74. Patient sought a plateau, will discontinue Wegovy, switch to Zepbound 2.5 mg. Discussed proper use, side effects. Follow-up in 4 to 6 weeks. 07/28/2024: Weight 198, BMI 29. Weight plateaued since last visit. Switched over to Zepbound 2.5 mg, increased to 5 mg. Her grandmother just passed, so she has been planning arrangements and exercises been off. 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 09/10/2024: Weight 197, BMI 29. Discontinuing Zepbound 2 weeks ago secondary to significant hair loss. Will hold off on all weight loss medications and follow-up in 4 weeks. Will obtain blood work prior 11/17/2024 weight 221, BMI 32. start contrave, discussed proper use and side effects, and contact office with any concerns. Discussed reinitiating wegovy in the future, will trial contrave first. Discussed referral for mounter flutes and piccolos, Patient declines at this time. Follow up in 4-6 weeks 12/24/2024: Weight 225, BMI 33. Patient feeling well mentally taking Contrave, but not noticing any significant weight loss. Will reinitiate Wegovy 0.25 mg, discussed proper use and side effect. Continue to encourage walking. States she felt best on Wegovy. 03/04/2025: Weight 227, BMI 33. Continue with Wegovy 0.25 mg x 4 weeks, increasing 0.5 mg of Wegovy today March 04, 2025. Continue to encourage walking, and resistance training. Patient states hair loss is much improved. 04/13/2025: Weight 221, BMI 32. Losing slow, steady weight. Very pleased with progress overall. Increase Wegovy to 1 mg. Continue with exercise walking 3 miles daily, and focusing on increasing resistance training. # Hair loss: Ongoing hair loss/fatigue. TSH, T3 and T4 within normal limits back in September 2024 but patient states that her cousins have thyroid disease and she is requesting autoimmune workup. Will order autoimmune panel. Patient taking NutrAFUL wth improvment. Consider dermatology referral. No further workup needed at this time.Is aware GLP-1's and weight loss can promote normal hair loss. # Wart of left hand, refer to dermatology. [id number] regimen not helping # Migraines: Adequate nutrition/hydration. Ibuprofen as needed, no red flag symptoms. Separate control, migraines have been worse since then. She is not interested in getting back on control. Taking sumatriptan as needed. If no improvement could consider alternative abortive/preventativ e therapies or imaging. #Patient taken Lexapro 5 mg, patient states that her depression has been worse secondary to weight gain, will add on Contrave # Hyperlipidemia: 08/26/2022 showing total cholesterol 294, triglycerides 323, LDL 169. Lipid panel from 12/25/2023 showing no improvement in cholesterol around 290, but improvement in triglycerides at 185, LDL 177.Based on cholesterol being 290, and cardiovascular risk factors Rosuvastatin 10 mg initiated. Lab from 09/15/2024 total cholesterol 240, LDL 151, HDL 64. Repeating lipid panel in 3-4 months. if cholesterol is still elevated consider increasing Rosuvastatin. # Left shoulder pain: followed with a chiropractor and massage therapist without significant improvement.Ordered x-rays, although patient did not obtain. Ordered MRI, showing tendinitis. Scheduled with Ortho in the next 3 weeks for cortisone injections. Follow-up in 4-6 weeks, or sooner if needed. Time spent with patient 30 minutes with greater than 50% on patient education and care coordination All quetsions answered to patients satisfaction. Patient verbalized understanding of diagnosis and treatments explained. To call sooner prior to next visit it any questions/concerns arise. Case discussed with collaborating physician Riley Quintero who reviewed the assessment and plan. Chart, medications, labs, vital signs reviewed. Dictation was accomplished with the use of [employer] voice recognition software, prone to medical misidentifications and grammatical errors. This is unintentional and the practitioner does try to identify and correct these, but some could still be present. Please do not hesitate to contact practitioner for clarification. 03/04/2025 BMI 33.0-33.9,adult (ICD-10 - Z68.33) 10/03/22: Weight 211, BMI 31.16- educated extensively on lifestyle modifications including high-protein, low carbohydrate, healthy fat, exercise, water intake, sleep hygiene, and stress relief. Patient will work on life so modifications of the next four weeks. Interested in weight loss medications. Start with Topamax 25 mg. Patient educated cannot drink alcohol on this medication. Most recent labs reviewed showing hyperlipidemia, without any insulin/diabetes concern. Patient educated on fish oil, diet, exercise. At next visit, will obtain EKG, and start phentermine 15 mg if EKG without concern. No concern for at this time. 10/31/22: weight 212, BMI 31.3- educated on lifestyle modifications. Patient went to [place], and then went to [place] and states that she has been traveling a lot and drinking more than usual. She is ready to get back on track. She has been walking more recently and focusing on portion control as well as eating earlier in the evening. She does feel some appetite suppression on metformin but is interested in starting an additional medication. She did not tolerate Topamax well. EKG's office today within normal limits. Will start phentermine 15 mg. Patient educated on side effects as well as proper use. Will follow-up in four weeks, sooner as needed.Encouraged to increase water intake. 12/05/22: weight 211.5, BMI 31.23- educated extensive and lifestyle modifications. Patient was congratulated on efforts. Taking phentermine 15 mg with compliance, without any side effects. Interested in increasing dose of 30 mg. If patient continues to have minimal weight loss, could consider GLP-1 injection such as Wegovy next visit, as at that time, patient will have three consecutive months of trying to lose weight. Patient understanding and aware of this plan. Educated to increase more formal exercise. 01/09/2023: Weight 207.3, BMI 30.61-patient congratulated on efforts, has been losing some weight. Taking phentermine 30 mg with compliance, without any side effects. Is noticing more appetite suppression on 30 mg then 15. Interested in increasing dose to 37.5. We did have a discussion about possibly switching to GLP-1 such as Wegovy, but having difficulty with supply at this time therefore we will continue phentermine 37.5 at this time. Did talk about compounded semaglutide as well, but patient states she will find it difficult to come to the office once weekly. Will increase to phentermine 37.5, and add Topamax. Patient also does admit to occasional headaches and history of migraines and this could benefit that as well. Educated on proper use, as well as side effects. 02/08/2023: Weight 205, BMI 30.27. Patient congratulated on effort. Taking phentermine 37.5, and Topamax. Noticing some appetite suppression but not significant effect. Interested in tapering off, and starting a different medication such as GLP-1 injection. Patient aware of the national shortage difficulty, but is interested in Saxenda. Did discuss proper use, and side effects of medication. We will taper phentermine, and start Saxenda. 03/12/2023: Weight 207.1, BMI 30.58. Patient expresses frustration given her current circumstances. She has not been able to obtain Saxenda from the pharmacy despite insurance approval. Currently taking phentermine 15 mg with no effect despite maintaining lifestyle modifications. Goals reevaluated and discussed incorporating increased intensity exercise in addition to walking as tolerated. Contacted [facility] pharmacy in [place] who states they cannot dispense Saxenda secondary to supply issues. Called [facility] specialty pharmacy, and Saxenda continues to be on backorder until unknown date. Will send to other [facility] pharmacy in [place], but patient will continue to call pharmacies to see who has availability, and happy to send to pharmacy when she can find one. She is understanding and aware. 04/12/2023: Weight 209 pounds, BMI 30.86. Patient did gain weight, but upon review of body composition scan she did gain 3 pounds of muscle, and lost 1 pound of fat. She was congratulated. Has been working hard with exercise and focusing on portion control but she states that she is going in the opposite direction because she is off of phentermine. Is interested in weight loss medications, tried sending Saxenda but was unable to obtain due to supply concern. We will start compounded semaglutide 0.25 mg today, and follow-up in 4 weeks. Also sending for Wegovy 0.5 mg and she is going to call the pharmacy to see if she can find although she is aware of the national shortage. 07/24/2023: Weight 199.6, BMI 29.47. Patient is welcome back to the practice, has not followed up since April due to insurance concerns, but is now following with us today. Patient was doing really well on semaglutide, but feels like she is now plateauing. Taking 0.5 mg, but interested in increasing to 1 mg. Will provide semaglutide 1 mg today, and submit for Wegovy 1 mg.Encouraged to continue with lifestyle modifications. 12/24/2023: Weight 204.1, BMI 30.14. Patient has gained since visit,, trying to get back on track. Was taking Wegovy 1 mg doing well, has been off for 6 weeks, so we will try to get her back on 1 mg and if not we will increase her to Wegovy 1.7 mg. Educated on proper use, side effects, long-term risk. 03/05/2024: Weight 203, BMI 30. Taking Wegovy 1.7 mg, will continue for another 4 weeks, and then consider increasing to 2.4 mg. If still at a plateau, consider switching over to Zepbound. Implementing more resistance training, and higher protein. Body scan reviewed today 04/02/2024: Weight 199, BMI 29: Patient congratulated on effort, continuing to lose slow, steady weight. Continue with Wegovy 1.7 mg. Encouraged to increase more resistance training, protein, and water intake. Follow-up in 4 weeks, could consider increasing Wegovy to 2.4 mg, or continuing with dose. 05/08/2024: Weight 198, BMI 29.25. Patient continuing to walk. Exercise otherwise limited due to right shoulder pain for which she is following with a chiropractor. Continue Wegovy but increase to 2.4 mg. If no improvement, consider switching over to Zepbound. Following up for physical in 1 month. 06/10/2024: Weight 201, BMI 29.74. Patient sought a plateau, will discontinue Wegovy, switch to Zepbound 2.5 mg. Discussed proper use, side effects. Follow-up in 4 to 6 weeks. 07/28/2024: Weight 198, BMI 29. Weight plateaued since last visit. Switched over to Zepbound 2.5 mg, increased to 5 mg. Her grandmother just passed, so she has been planning arrangements and exercises been off. 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 09/10/2024: Weight 197, BMI 29. Discontinuing Zepbound 2 weeks ago secondary to significant hair loss. Will hold off on all weight loss medications and follow-up in 4 weeks. Will obtain blood work prior 11/17/2024 weight 221, BMI 32. start contrave, discussed proper use and side effects, and contact office with any concerns. Discussed reinitiating wegovy in the future, will trial contrave first. Discussed referral for mounter flutes and piccolos, Patient declines at this time. Follow up in 4-6 weeks 12/24/2024: Weight 225, BMI 33. Patient feeling well mentally taking Contrave, but not noticing any significant weight loss. Will reinitiate Wegovy 0.25 mg, discussed proper use and side effect. Continue to encourage walking. States she felt best on Wegovy. 03/04/2025: Weight 227, BMI 33. Continue with Wegovy 0.25 mg x 4 weeks, increasing 0.5 mg of Wegovy today March 04, 2025. Continue to encourage walking, and resistance training. Patient states hair loss is much improved. # Hair loss: CBC, iron, TIBC, ferritin, ABHAY, CRP, estrogen, progesterone, testosterone, DHEA, TSH, T3, T4, were WNL, vitamin D was low, pt reports that she is taking vitamin D supplementation, vitamin B12 was low, pt recieved Vitamin B12 in office.Patient taking NutrAFUL wth improvment. Consider dermatology referral. No further workup needed at this time.Is aware GLP-1's and weight loss can promote normal hair loss. # Migraines: Adequate nutrition/hydration. Ibuprofen as needed, no red flag symptoms. Separate control, migraines have been worse since then. She is not interested in getting back on control. Taking sumatriptan as needed. If no improvement could consider alternative abortive/preventativ e therapies or imaging. #Patient taken Lexapro 5 mg, patient states that her depression has been worse secondary to weight gain, will add on Contrave # Hyperlipidemia: 08/26/2022 showing total cholesterol 294, triglycerides 323, LDL 169. Lipid panel from 12/25/2023 showing no improvement in cholesterol around 290, but improvement in triglycerides at 185, LDL 177.Based on cholesterol being 290, and cardiovascular risk factors Rosuvastatin 10 mg initiated. Lab from 09/15/2024 total cholesterol 240, LDL 151, HDL 64. Repeating lipid panel in 3-4 months. if cholesterol is still elevated consider increasing Rosuvastatin. # Left shoulder pain: followed with a chiropractor and massage therapist without significant improvement.Ordered x-rays, although patient did not obtain. Ordered MRI, showing tendinitis. Scheduled with Ortho in the next 3 weeks for cortisone injections. Follow-up in 4-6 weeks, or sooner if needed. Time spent with patient 30 minutes with greater than 50% on patient education and care coordination All quetsions answered to patients satisfaction. Patient verbalized understanding of diagnosis and treatments explained. To call sooner prior to next visit it any questions/concerns arise. Case discussed with collaborating physician Riley Quintero who reviewed the assessment and plan. Chart, medications, labs, vital signs reviewed. Dictation was accomplished with the use of [employer] voice recognition software, prone to medical misidentifications and grammatical errors. This is unintentional and the practitioner does try to identify and correct these, but some could still be present. Please do not hesitate to contact practitioner for clarification. 12/24/2024 Pain, joint, shoulder, left (ICD-10 - M25.512) 10/03/22: Weight 211, BMI 31.16- educated extensively on lifestyle modifications including high-protein, low carbohydrate, healthy fat, exercise, water intake, sleep hygiene, and stress relief. Patient will work on life so modifications of the next four weeks. Interested in weight loss medications. Start with Topamax 25 mg. Patient educated cannot drink alcohol on this medication. Most recent labs reviewed showing hyperlipidemia, without any insulin/diabetes concern. Patient educated on fish oil, diet, exercise. At next visit, will obtain EKG, and start phentermine 15 mg if EKG without concern. No concern for at this time. 10/31/22: weight 212, BMI 31.3- educated on lifestyle modifications. Patient went to [place], and then went to [place] and states that she has been traveling a lot and drinking more than usual. She is ready to get back on track. She has been walking more recently and focusing on portion control as well as eating earlier in the evening. She does feel some appetite suppression on metformin but is interested in starting an additional medication. She did not tolerate Topamax well. EKG's office today within normal limits. Will start phentermine 15 mg. Patient educated on side effects as well as proper use. Will follow-up in four weeks, sooner as needed.Encouraged to increase water intake. 12/05/22: weight 211.5, BMI 31.23- educated extensive and lifestyle modifications. Patient was congratulated on efforts. Taking phentermine 15 mg with compliance, without any side effects. Interested in increasing dose of 30 mg. If patient continues to have minimal weight loss, could consider GLP-1 injection such as Wegovy next visit, as at that time, patient will have three consecutive months of trying to lose weight. Patient understanding and aware of this plan. Educated to increase more formal exercise. 01/09/2023: Weight 207.3, BMI 30.61-patient congratulated on efforts, has been losing some weight. Taking phentermine 30 mg with compliance, without any side effects. Is noticing more appetite suppression on 30 mg then 15. Interested in increasing dose to 37.5. We did have a discussion about possibly switching to GLP-1 such as Wegovy, but having difficulty with supply at this time therefore we will continue phentermine 37.5 at this time. Did talk about compounded semaglutide as well, but patient states she will find it difficult to come to the office once weekly. Will increase to phentermine 37.5, and add Topamax. Patient also does admit to occasional headaches and history of migraines and this could benefit that as well. Educated on proper use, as well as side effects. 02/08/2023: Weight 205, BMI 30.27. Patient congratulated on effort. Taking phentermine 37.5, and Topamax. Noticing some appetite suppression but not significant effect. Interested in tapering off, and starting a different medication such as GLP-1 injection. Patient aware of the national shortage difficulty, but is interested in Saxenda. Did discuss proper use, and side effects of medication. We will taper phentermine, and start Saxenda. 03/12/2023: Weight 207.1, BMI 30.58. Patient expresses frustration given her current circumstances. She has not been able to obtain Saxenda from the pharmacy despite insurance approval. Currently taking phentermine 15 mg with no effect despite maintaining lifestyle modifications. Goals reevaluated and discussed incorporating increased intensity exercise in addition to walking as tolerated. Contacted [facility] pharmacy in [place] who states they cannot dispense Saxenda secondary to supply issues. Called [facility] specialty pharmacy, and Saxenda continues to be on backorder until unknown date. Will send to other [facility] pharmacy in [place], but patient will continue to call pharmacies to see who has availability, and happy to send to pharmacy when she can find one. She is understanding and aware. 04/12/2023: Weight 209 pounds, BMI 30.86. Patient did gain weight, but upon review of body composition scan she did gain 3 pounds of muscle, and lost 1 pound of fat. She was congratulated. Has been working hard with exercise and focusing on portion control but she states that she is going in the opposite direction because she is off of phentermine. Is interested in weight loss medications, tried sending Saxenda but was unable to obtain due to supply concern. We will start compounded semaglutide 0.25 mg today, and follow-up in 4 weeks. Also sending for Wegovy 0.5 mg and she is going to call the pharmacy to see if she can find although she is aware of the national shortage. 07/24/2023: Weight 199.6, BMI 29.47. Patient is welcome back to the practice, has not followed up since April due to insurance concerns, but is now following with us today. Patient was doing really well on semaglutide, but feels like she is now plateauing. Taking 0.5 mg, but interested in increasing to 1 mg. Will provide semaglutide 1 mg today, and submit for Wegovy 1 mg.Encouraged to continue with lifestyle modifications. 12/24/2023: Weight 204.1, BMI 30.14. Patient has gained since visit,, trying to get back on track. Was taking Wegovy 1 mg doing well, has been off for 6 weeks, so we will try to get her back on 1 mg and if not we will increase her to Wegovy 1.7 mg. Educated on proper use, side effects, long-term risk. 03/05/2024: Weight 203, BMI 30. Taking Wegovy 1.7 mg, will continue for another 4 weeks, and then consider increasing to 2.4 mg. If still at a plateau, consider switching over to Zepbound. Implementing more resistance training, and higher protein. Body scan reviewed today 04/02/2024: Weight 199, BMI 29: Patient congratulated on effort, continuing to lose slow, steady weight. Continue with Wegovy 1.7 mg. Encouraged to increase more resistance training, protein, and water intake. Follow-up in 4 weeks, could consider increasing Wegovy to 2.4 mg, or continuing with dose. 05/08/2024: Weight 198, BMI 29.25. Patient continuing to walk. Exercise otherwise limited due to right shoulder pain for which she is following with a chiropractor. Continue Wegovy but increase to 2.4 mg. If no improvement, consider switching over to Zepbound. Following up for physical in 1 month. 06/10/2024: Weight 201, BMI 29.74. Patient sought a plateau, will discontinue Wegovy, switch to Zepbound 2.5 mg. Discussed proper use, side effects. Follow-up in 4 to 6 weeks. 07/28/2024: Weight 198, BMI 29. Weight plateaued since last visit. Switched over to Zepbound 2.5 mg, increased to 5 mg. Her grandmother just passed, so she has been planning arrangements and exercises been off. 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 09/10/2024: Weight 197, BMI 29. Discontinuing Zepbound 2 weeks ago secondary to significant hair loss. Will hold off on all weight loss medications and follow-up in 4 weeks. Will obtain blood work prior 11/17/2024 weight 221, BMI 32. start contrave, discussed proper use and side effects, and contact office with any concerns. Discussed reinitiating wegovy in the future, will trial contrave first. Discussed referral for mounter flutes and piccolos, Patient declines at this time. Follow up in 4-6 weeks 12/24/2024: Weight 225, BMI 33. Patient feeling well mentally taking Contrave, but not noticing any significant weight loss. Will reinitiate Wegovy 0.25 mg, discussed proper use and side effect. Continue to encourage walking. States she felt best on Wegovy. # Hair loss: CBC, iron, TIBC, ferritin, ABHAY, CRP, estrogen, progesterone, testosterone, DHEA, TSH, T3, T4, were WNL, vitamin D was low, pt reports that she is taking vitamin D supplementation, vitamin B12 was low, pt recieved Vitamin B12 in office.Patient taking NutrAFUL wth improvment. Consider dermatology referral. No further workup needed at this time.Is aware GLP-1's and weight loss can promote normal hair loss. # Migraines: Adequate nutrition/hydration. Ibuprofen as needed, no red flag symptoms. Separate control, migraines have been worse since then. She is not interested in getting back on control. Taking sumatriptan as needed. If no improvement could consider alternative abortive/preventativ e therapies or imaging. #Patient taken Lexapro 5 mg, patient states that her depression has been worse secondary to weight gain, will add on Contrave # Hyperlipidemia: 08/26/2022 showing total cholesterol 294, triglycerides 323, LDL 169. Lipid panel from 12/25/2023 showing no improvement in cholesterol around 290, but improvement in triglycerides at 185, LDL 177.Based on cholesterol being 290, and cardiovascular risk factors Rosuvastatin 10 mg initiated. Lab from 09/15/2024 total cholesterol 240, LDL 151, HDL 64. Repeating lipid panel in 3-4 months. if cholesterol is still elevated consider increasing Rosuvastatin. # Left shoulder pain: followed with a chiropractor and massage therapist without significant improvement.Ordered x-rays, although patient did not obtain. Ordered MRI, showing tendinitis. Scheduled with Ortho in the next 3 weeks for cortisone injections. Follow-up in 4-6 weeks, or sooner if needed. Time spent with patient 30 minutes with greater than 50% on patient education and care coordination All quetsions answered to patients satisfaction. Patient verbalized understanding of diagnosis and treatments explained. To call sooner prior to next visit it any questions/concerns arise. Case discussed with collaborating physician Riley Quintero who reviewed the assessment and plan. Chart, medications, labs, vital signs reviewed. Dictation was accomplished with the use of [employer] voice recognition software, prone to medical misidentifications and grammatical errors. This is unintentional and the practitioner does try to identify and correct these, but some could still be present. Please do not hesitate to contact practitioner for clarification. 11/17/2024 Mixed hyperlipidemia (ICD-10 - E78.2) 10/03/22: Weight 211, BMI 31.16- educated extensively on lifestyle modifications including high-protein, low carbohydrate, healthy fat, exercise, water intake, sleep hygiene, and stress relief. Patient will work on life so modifications of the next four weeks. Interested in weight loss medications. Start with Topamax 25 mg. Patient educated cannot drink alcohol on this medication. Most recent labs reviewed showing hyperlipidemia, without any insulin/diabetes concern. Patient educated on fish oil, diet, exercise. At next visit, will obtain EKG, and start phentermine 15 mg if EKG without concern. No concern for at this time. 10/31/22: weight 212, BMI 31.3- educated on lifestyle modifications. Patient went to [place], and then went to [place] and states that she has been traveling a lot and drinking more than usual. She is ready to get back on track. She has been walking more recently and focusing on portion control as well as eating earlier in the evening. She does feel some appetite suppression on metformin but is interested in starting an additional medication. She did not tolerate Topamax well. EKG's office today within normal limits. Will start phentermine 15 mg. Patient educated on side effects as well as proper use. Will follow-up in four weeks, sooner as needed.Encouraged to increase water intake. 12/05/22: weight 211.5, BMI 31.23- educated extensive and lifestyle modifications. Patient was congratulated on efforts. Taking phentermine 15 mg with compliance, without any side effects. Interested in increasing dose of 30 mg. If patient continues to have minimal weight loss, could consider GLP-1 injection such as Wegovy next visit, as at that time, patient will have three consecutive months of trying to lose weight. Patient understanding and aware of this plan. Educated to increase more formal exercise. 01/09/2023: Weight 207.3, BMI 30.61-patient congratulated on efforts, has been losing some weight. Taking phentermine 30 mg with compliance, without any side effects. Is noticing more appetite suppression on 30 mg then 15. Interested in increasing dose to 37.5. We did have a discussion about possibly switching to GLP-1 such as Wegovy, but having difficulty with supply at this time therefore we will continue phentermine 37.5 at this time. Did talk about compounded semaglutide as well, but patient states she will find it difficult to come to the office once weekly. Will increase to phentermine 37.5, and add Topamax. Patient also does admit to occasional headaches and history of migraines and this could benefit that as well. Educated on proper use, as well as side effects. 02/08/2023: Weight 205, BMI 30.27. Patient congratulated on effort. Taking phentermine 37.5, and Topamax. Noticing some appetite suppression but not significant effect. Interested in tapering off, and starting a different medication such as GLP-1 injection. Patient aware of the national shortage difficulty, but is interested in Saxenda. Did discuss proper use, and side effects of medication. We will taper phentermine, and start Saxenda. 03/12/2023: Weight 207.1, BMI 30.58. Patient expresses frustration given her current circumstances. She has not been able to obtain Saxenda from the pharmacy despite insurance approval. Currently taking phentermine 15 mg with no effect despite maintaining lifestyle modifications. Goals reevaluated and discussed incorporating increased intensity exercise in addition to walking as tolerated. Contacted [facility] pharmacy in [place] who states they cannot dispense Saxenda secondary to supply issues. Called [facility] specialty pharmacy, and Saxenda continues to be on backorder until unknown date. Will send to other [facility] pharmacy in [place], but patient will continue to call pharmacies to see who has availability, and happy to send to pharmacy when she can find one. She is understanding and aware. 04/12/2023: Weight 209 pounds, BMI 30.86. Patient did gain weight, but upon review of body composition scan she did gain 3 pounds of muscle, and lost 1 pound of fat. She was congratulated. Has been working hard with exercise and focusing on portion control but she states that she is going in the opposite direction because she is off of phentermine. Is interested in weight loss medications, tried sending Saxenda but was unable to obtain due to supply concern. We will start compounded semaglutide 0.25 mg today, and follow-up in 4 weeks. Also sending for Wegovy 0.5 mg and she is going to call the pharmacy to see if she can find although she is aware of the national shortage. 07/24/2023: Weight 199.6, BMI 29.47. Patient is welcome back to the practice, has not followed up since April due to insurance concerns, but is now following with us today. Patient was doing really well on semaglutide, but feels like she is now plateauing. Taking 0.5 mg, but interested in increasing to 1 mg. Will provide semaglutide 1 mg today, and submit for Wegovy 1 mg.Encouraged to continue with lifestyle modifications. 12/24/2023: Weight 204.1, BMI 30.14. Patient has gained since visit,, trying to get back on track. Was taking Wegovy 1 mg doing well, has been off for 6 weeks, so we will try to get her back on 1 mg and if not we will increase her to Wegovy 1.7 mg. Educated on proper use, side effects, long-term risk. 03/05/2024: Weight 203, BMI 30. Taking Wegovy 1.7 mg, will continue for another 4 weeks, and then consider increasing to 2.4 mg. If still at a plateau, consider switching over to Zepbound. Implementing more resistance training, and higher protein. Body scan reviewed today 04/02/2024: Weight 199, BMI 29: Patient congratulated on effort, continuing to lose slow, steady weight. Continue with Wegovy 1.7 mg. Encouraged to increase more resistance training, protein, and water intake. Follow-up in 4 weeks, could consider increasing Wegovy to 2.4 mg, or continuing with dose. 05/08/2024: Weight 198, BMI 29.25. Patient continuing to walk. Exercise otherwise limited due to right shoulder pain for which she is following with a chiropractor. Continue Wegovy but increase to 2.4 mg. If no improvement, consider switching over to Zepbound. Following up for physical in 1 month. 06/10/2024: Weight 201, BMI 29.74. Patient sought a plateau, will discontinue Wegovy, switch to Zepbound 2.5 mg. Discussed proper use, side effects. Follow-up in 4 to 6 weeks. 07/28/2024: Weight 198, BMI 29. Weight plateaued since last visit. Switched over to Zepbound 2.5 mg, increased to 5 mg. Her grandmother just passed, so she has been planning arrangements and exercises been off. 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 09/10/2024: Weight 197, BMI 29. Discontinuing Zepbound 2 weeks ago secondary to significant hair loss. Will hold off on all weight loss medications and follow-up in 4 weeks. Will obtain blood work prior 11/17/2024 weight 221, BMI 32. start contrave, discussed proper use and side effects, and contact office with any concerns. Discussed reinitiating wegovy in the future, will trial contrave first. Discussed referral for mounter fl[facility] and piccolos, Patient declines at this time. Follow up in 4-6 weeks # Hair loss: CBC, iron, TIBC, ferritin, ABHAY, CRP, estrogen, progesterone, testosterone, DHEA, TSH, T3, T4, were WNL, vitamin D was low, pt reports that she is taking vitamin D supplementation, vitamin B12 was low, pt recieved Vitamin B12 in office.Patient taking NutrAFUL wth improvment. Consider dermatology referral. # Migraines: Adequate nutrition/hydration. Ibuprofen as needed, no red flag symptoms. Separate control, migraines have been worse since then. She is not interested in getting back on control. Taking sumatriptan as needed. If no improvement could consider alternative abortive/preventativ e therapies or imaging. #Patient taken Lexapro 5 mg, patient states that her depression has been worse secondary to weight gain, will add on Contrave # Hyperlipidemia: 08/26/2022 showing total cholesterol 294, triglycerides 323, LDL 169. Lipid panel from 12/25/2023 showing no improvement in cholesterol around 290, but improvement in triglycerides at 185, LDL 177.Based on cholesterol being 290, and cardiovascular risk factors Rosuvastatin 10 mg initiated. Lab from 09/15/2024 total cholesterol 240, LDL 151, HDL 64. Repeating lipid panel in 3-4 months. if cholesterol is still elevated consider increasing Rosuvastatin. # Left shoulder pain: followed with a chiropractor and massage therapist without significant improvement.Ordered x-rays, although patient did not obtain. Ordered MRI of the LT shoulder Without contrast, concerned for rotater cuff abnormality Based on physical examination. Follow-up in 4 weeks, or sooner if needed. All quetsions answered to patients satisfaction. Patient verbalized understanding of diagnosis and treatments explained. To call sooner prior to next visit it any questions/concerns arise. Case discussed with collaborating physician Riley Quintero who reviewed the assessment and plan. Chart, medications, labs, vital signs reviewed. Dictation was accomplished with the use of [employer] voice recognition software, prone to medical misidentifications and grammatical errors. This is unintentional and the practitioner does try to identify and correct these, but some could still be present. Please do not hesitate to contact practitioner for clarification. 09/10/2024 Anxiety (ICD-10 - F41.9) 10/03/22: Weight 211, BMI 31.16- educated extensively on lifestyle modifications including high-protein, low carbohydrate, healthy fat, exercise, water intake, sleep hygiene, and stress relief. Patient will work on life so modifications of the next four weeks. Interested in weight loss medications. Start with Topamax 25 mg. Patient educated cannot drink alcohol on this medication. Most recent labs reviewed showing hyperlipidemia, without any insulin/diabetes concern. Patient educated on fish oil, diet, exercise. At next visit, will obtain EKG, and start phentermine 15 mg if EKG without concern. No concern for at this time. 10/31/22: weight 212, BMI 31.3- educated on lifestyle modifications. Patient went to [place], and then went to [place] and states that she has been traveling a lot and drinking more than usual. She is ready to get back on track. She has been walking more recently and focusing on portion control as well as eating earlier in the evening. She does feel some appetite suppression on metformin but is interested in starting an additional medication. She did not tolerate Topamax well. EKG's office today within normal limits. Will start phentermine 15 mg. Patient educated on side effects as well as proper use. Will follow-up in four weeks, sooner as needed.Encouraged to increase water intake. 12/05/22: weight 211.5, BMI 31.23- educated extensive and lifestyle modifications. Patient was congratulated on efforts. Taking phentermine 15 mg with compliance, without any side effects. Interested in increasing dose of 30 mg. If patient continues to have minimal weight loss, could consider GLP-1 injection such as Wegovy next visit, as at that time, patient will have three consecutive months of trying to lose weight. Patient understanding and aware of this plan. Educated to increase more formal exercise. 01/09/2023: Weight 207.3, BMI 30.61-patient congratulated on efforts, has been losing some weight. Taking phentermine 30 mg with compliance, without any side effects. Is noticing more appetite suppression on 30 mg then 15. Interested in increasing dose to 37.5. We did have a discussion about possibly switching to GLP-1 such as Wegovy, but having difficulty with supply at this time therefore we will continue phentermine 37.5 at this time. Did talk about compounded semaglutide as well, but patient states she will find it difficult to come to the office once weekly. Will increase to phentermine 37.5, and add Topamax. Patient also does admit to occasional headaches and history of migraines and this could benefit that as well. Educated on proper use, as well as side effects. 02/08/2023: Weight 205, BMI 30.27. Patient congratulated on effort. Taking phentermine 37.5, and Topamax. Noticing some appetite suppression but not significant effect. Interested in tapering off, and starting a different medication such as GLP-1 injection. Patient aware of the national shortage difficulty, but is interested in Saxenda. Did discuss proper use, and side effects of medication. We will taper phentermine, and start Saxenda. 03/12/2023: Weight 207.1, BMI 30.58. Patient expresses frustration given her current circumstances. She has not been able to obtain Saxenda from the pharmacy despite insurance approval. Currently taking phentermine 15 mg with no effect despite maintaining lifestyle modifications. Goals reevaluated and discussed incorporating increased intensity exercise in addition to walking as tolerated. Contacted [facility] pharmacy in [place] who states they cannot dispense Saxenda secondary to supply issues. Called [facility] specialty pharmacy, and Saxenda continues to be on backorder until unknown date. Will send to other [facility] pharmacy in [place], but patient will continue to call pharmacies to see who has availability, and happy to send to pharmacy when she can find one. She is understanding and aware. 04/12/2023: Weight 209 pounds, BMI 30.86. Patient did gain weight, but upon review of body composition scan she did gain 3 pounds of muscle, and lost 1 pound of fat. She was congratulated. Has been working hard with exercise and focusing on portion control but she states that she is going in the opposite direction because she is off of phentermine. Is interested in weight loss medications, tried sending Saxenda but was unable to obtain due to supply concern. We will start compounded semaglutide 0.25 mg today, and follow-up in 4 weeks. Also sending for Wegovy 0.5 mg and she is going to call the pharmacy to see if she can find although she is aware of the national shortage. 07/24/2023: Weight 199.6, BMI 29.47. Patient is welcome back to the practice, has not followed up since April due to insurance concerns, but is now following with us today. Patient was doing really well on semaglutide, but feels like she is now plateauing. Taking 0.5 mg, but interested in increasing to 1 mg. Will provide semaglutide 1 mg today, and submit for Wegovy 1 mg.Encouraged to continue with lifestyle modifications. 12/24/2023: Weight 204.1, BMI 30.14. Patient has gained since visit,, trying to get back on track. Was taking Wegovy 1 mg doing well, has been off for 6 weeks, so we will try to get her back on 1 mg and if not we will increase her to Wegovy 1.7 mg. Educated on proper use, side effects, long-term risk. 03/05/2024: Weight 203, BMI 30. Taking Wegovy 1.7 mg, will continue for another 4 weeks, and then consider increasing to 2.4 mg. If still at a plateau, consider switching over to Zepbound. Implementing more resistance training, and higher protein. Body scan reviewed today 04/02/2024: Weight 199, BMI 29: Patient congratulated on effort, continuing to lose slow, steady weight. Continue with Wegovy 1.7 mg. Encouraged to increase more resistance training, protein, and water intake. Follow-up in 4 weeks, could consider increasing Wegovy to 2.4 mg, or continuing with dose. 05/08/2024: Weight 198, BMI 29.25. Patient continuing to walk. Exercise otherwise limited due to right shoulder pain for which she is following with a chiropractor. Continue Wegovy but increase to 2.4 mg. If no improvement, consider switching over to Zepbound. Following up for physical in 1 month. 06/10/2024: Weight 201, BMI 29.74. Patient sought a plateau, will discontinue Wegovy, switch to Zepbound 2.5 mg. Discussed proper use, side effects. Follow-up in 4 to 6 weeks. 07/28/2024: Weight 198, BMI 29. Weight plateaued since last visit. Switched over to Zepbound 2.5 mg, increased to 5 mg. Her grandmother just passed, so she has been planning arrangements and exercises been off. 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 09/10/2024: Weight 197, BMI 29. Discontinuing Zepbound 2 weeks ago secondary to significant hair loss. Will hold off on all weight loss medications and follow-up in 4 weeks. Will obtain blood work prior # Hair loss: Ordering CBC, iron, TIBC, ferritin, ABHAY, CRP, estrogen, progesterone, testosterone, DHEA, TSH, T3, T4, vitamin D, and vitamin B12.Patient taking NutrAFUL. Consider dermatology referral. # Migraines: Adequate nutrition/hydration. Ibuprofen as needed, no red flag symptoms. Separate control, migraines have been worse since then. She is not interested in getting back on control. Taking sumatriptan as needed. If no improvement could consider alternative abortive/preventativ e therapies or imaging. #Patient taken Lexapro. No concerns at this time. # Hyperlipidemia: Labs from 08/26/2022 showing total cholesterol 294, triglycerides 323, LDL 169. Lipid panel from 12/25/2023 showing no improvement in cholesterol around 290, but improvement in triglycerides at 185, LDL 177.Based on cholesterol being 290, and cardiovascular risk factors Rosuvastatin 10 mg initiated. Repeating lipid panel. # Right shoulder pain: X 6 months, followed with a chiropractor and massage therapist without significant improvement.Ordered x-rays, although patient did not obtain. Follow-up in 4 weeks, lab in the meantime. All quetsions answered to patients satisfaction. Patient verbalized understanding of diagnosis and treatments explained. To call sooner prior to next visit it any questions/concerns arise. Case discussed with collaborating physician Riley Quintero who reviewed the assessment and plan. Chart, medications, labs, vital signs reviewed. Dictation was accomplished with the use of [employer] voice recognition software, prone to medical misidentifications and grammatical errors. This is unintentional and the practitioner does try to identify and correct these, but some could still be present. Please do not hesitate to contact practitioner for clarification. 07/28/2024 Gastroesophageal reflux disease without esophagitis (ICD-10 - K21.9) 10/03/22: Weight 211, BMI 31.16- educated extensively on lifestyle modifications including high-protein, low carbohydrate, healthy fat, exercise, water intake, sleep hygiene, and stress relief. Patient will work on life so modifications of the next four weeks. Interested in weight loss medications. Start with Topamax 25 mg. Patient educated cannot drink alcohol on this medication. Most recent labs reviewed showing hyperlipidemia, without any insulin/diabetes concern. Patient educated on fish oil, diet, exercise. At next visit, will obtain EKG, and start phentermine 15 mg if EKG without concern. No concern for at this time. 10/31/22: weight 212, BMI 31.3- educated on lifestyle modifications. Patient went to [place], and then went to [place] and states that she has been traveling a lot and drinking more than usual. She is ready to get back on track. She has been walking more recently and focusing on portion control as well as eating earlier in the evening. She does feel some appetite suppression on metformin but is interested in starting an additional medication. She did not tolerate Topamax well. EKG's office today within normal limits. Will start phentermine 15 mg. Patient educated on side effects as well as proper use. Will follow-up in four weeks, sooner as needed.Encouraged to increase water intake. 12/05/22: weight 211.5, BMI 31.23- educated extensive and lifestyle modifications. Patient was congratulated on efforts. Taking phentermine 15 mg with compliance, without any side effects. Interested in increasing dose of 30 mg. If patient continues to have minimal weight loss, could consider GLP-1 injection such as Wegovy next visit, as at that time, patient will have three consecutive months of trying to lose weight. Patient understanding and aware of this plan. Educated to increase more formal exercise. 01/09/2023: Weight 207.3, BMI 30.61-patient congratulated on efforts, has been losing some weight. Taking phentermine 30 mg with compliance, without any side effects. Is noticing more appetite suppression on 30 mg then 15. Interested in increasing dose to 37.5. We did have a discussion about possibly switching to GLP-1 such as Wegovy, but having difficulty with supply at this time therefore we will continue phentermine 37.5 at this time. Did talk about compounded semaglutide as well, but patient states she will find it difficult to come to the office once weekly. Will increase to phentermine 37.5, and add Topamax. Patient also does admit to occasional headaches and history of migraines and this could benefit that as well. Educated on proper use, as well as side effects. 02/08/2023: Weight 205, BMI 30.27. Patient congratulated on effort. Taking phentermine 37.5, and Topamax. Noticing some appetite suppression but not significant effect. Interested in tapering off, and starting a different medication such as GLP-1 injection. Patient aware of the national shortage difficulty, but is interested in Saxenda. Did discuss proper use, and side effects of medication. We will taper phentermine, and start Saxenda. 03/12/2023: Weight 207.1, BMI 30.58. Patient expresses frustration given her current circumstances. She has not been able to obtain Saxenda from the pharmacy despite insurance approval. Currently taking phentermine 15 mg with no effect despite maintaining lifestyle modifications. Goals reevaluated and discussed incorporating increased intensity exercise in addition to walking as tolerated. Contacted [facility] pharmacy in [place] who states they cannot dispense Saxenda secondary to supply issues. Called [facility] specialty pharmacy, and Saxenda continues to be on backorder until unknown date. Will send to other [facility] pharmacy in [place], but patient will continue to call pharmacies to see who has availability, and happy to send to pharmacy when she can find one. She is understanding and aware. 04/12/2023: Weight 209 pounds, BMI 30.86. Patient did gain weight, but upon review of body composition scan she did gain 3 pounds of muscle, and lost 1 pound of fat. She was congratulated. Has been working hard with exercise and focusing on portion control but she states that she is going in the opposite direction because she is off of phentermine. Is interested in weight loss medications, tried sending Saxenda but was unable to obtain due to supply concern. We will start compounded semaglutide 0.25 mg today, and follow-up in 4 weeks. Also sending for Wegovy 0.5 mg and she is going to call the pharmacy to see if she can find although she is aware of the national shortage. 07/24/2023: Weight 199.6, BMI 29.47. Patient is welcome back to the practice, has not followed up since April due to insurance concerns, but is now following with us today. Patient was doing really well on semaglutide, but feels like she is now plateauing. Taking 0.5 mg, but interested in increasing to 1 mg. Will provide semaglutide 1 mg today, and submit for Wegovy 1 mg.Encouraged to continue with lifestyle modifications. 12/24/2023: Weight 204.1, BMI 30.14. Patient has gained since visit,, trying to get back on track. Was taking Wegovy 1 mg doing well, has been off for 6 weeks, so we will try to get her back on 1 mg and if not we will increase her to Wegovy 1.7 mg. Educated on proper use, side effects, long-term risk. 03/05/2024: Weight 203, BMI 30. Taking Wegovy 1.7 mg, will continue for another 4 weeks, and then consider increasing to 2.4 mg. If still at a plateau, consider switching over to Zepbound. Implementing more resistance training, and higher protein. Body scan reviewed today 04/02/2024: Weight 199, BMI 29: Patient congratulated on effort, continuing to lose slow, steady weight. Continue with Wegovy 1.7 mg. Encouraged to increase more resistance training, protein, and water intake. Follow-up in 4 weeks, could consider increasing Wegovy to 2.4 mg, or continuing with dose. 05/08/2024: Weight 198, BMI 29.25. Patient continuing to walk. Exercise otherwise limited due to right shoulder pain for which she is following with a chiropractor. Continue Wegovy but increase to 2.4 mg. If no improvement, consider switching over to Zepbound. Following up for physical in 1 month. 06/10/2024: Weight 201, BMI 29.74. Patient sought a plateau, will discontinue Wegovy, switch to Zepbound 2.5 mg. Discussed proper use, side effects. Follow-up in 4 to 6 weeks. 07/28/2024: Weight 198, BMI 29. Weight plateaued since last visit. Switched over to Zepbound 2.5 mg, increased to 5 mg. Her grandmother just passed, so she has been planning arrangements and exercises been off. 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 #Patient also has some concerns regarding thinning of hair. Thyroid within normal limits. States that it is her also in her family. Did discuss possible dermatology referral, or PRP injections through our [facility]. # Migraines: X 3 months. Adequate nutrition/hydration. Ibuprofen as needed, no red flag symptoms. Separate control, migraines have been worse since then. She is not interested in getting back on control. Symptoms persisting, so trial sumatriptan 25 mg, repeating dose after 2 hours if symptoms persist. Discussed proper use, side effects. If no improvement could consider alternative abortive/preventativ e therapies or imaging. #Patient taken Lexapro. No concerns at this time. # Hyperlipidemia: Labs from 08/26/2022 showing total cholesterol 294, triglycerides 323, LDL 169. Lipid panel from 12/25/2023 showing no improvement in cholesterol around 290, but improvement in triglycerides at 185, LDL 177.Based on cholesterol being 290, and cardiovascular risk factors will start rosuvastatin 10 mg, Due for repeat lipid panel to assess efficacy/compliance of medication. Will order today. We discussed lifestyle factors, she is eating a lot of shrimp, and red meat. Discussed fish, fish oil, [place], healthy fats. # Right shoulder pain: X 6 months, followed with a chiropractor and massage therapist without significant improvement. Will start with x-rays. Most likely will need physical therapy, Ortho referral, or further imaging. Discussed conservative treatments.Patient is updated x-ray images of order. This with patient 30 minutes with greater than 50% patient education and coordination. Work prior to next visit. Follow-up in 6 weeks, sooner as needed All quetsions answered to patients satisfaction. Patient verbalized understanding of diagnosis and treatments explained. To call sooner prior to next visit it any questions/concerns arise. Case discussed with collaborating physician Riley Quintero who reviewed the assessment and plan. Chart, medications, labs, vital signs reviewed. Dictation was accomplished with the use of [employer] voice recognition software, prone to medical misidentifications and grammatical errors. This is unintentional and the practitioner does try to identify and correct these, but some could still be present. Please do not hesitate to contact practitioner for clarification. 06/10/2024 BMI 29.0-29.9,adult (ICD-10 - Z68.29) Glenis is a pleasant 43-year-old female presents the office for complete physical exam. Patient is up-to-date on all routine screenings, just had a mammogram this year, Pap smear this year. Follows with [facility] for both of those things. Declines flu and COVID vaccines, up-to-date on tetanus. Healthcare proxy is her boyfriend Cristino, and her mom Yeimi, which was filled out on 06/10/2024. PHQ-9 with a total score of 5, no concern regarding mental health at this time. 10/03/22: Weight 211, BMI 31.16- educated extensively on lifestyle modifications including high-protein, low carbohydrate, healthy fat, exercise, water intake, sleep hygiene, and stress relief. Patient will work on life so modifications of the next four weeks. Interested in weight loss medications. Start with Topamax 25 mg. Patient educated cannot drink alcohol on this medication. Most recent labs reviewed showing hyperlipidemia, without any insulin/diabetes concern. Patient educated on fish oil, diet, exercise. At next visit, will obtain EKG, and start phentermine 15 mg if EKG without concern. No concern for at this time. 10/31/22: weight 212, BMI 31.3- educated on lifestyle modifications. Patient went to [place], and then went to [place] and states that she has been traveling a lot and drinking more than usual. She is ready to get back on track. She has been walking more recently and focusing on portion control as well as eating earlier in the evening. She does feel some appetite suppression on metformin but is interested in starting an additional medication. She did not tolerate Topamax well. EKG's office today within normal limits. Will start phentermine 15 mg. Patient educated on side effects as well as proper use. Will follow-up in four weeks, sooner as needed.Encouraged to increase water intake. 12/05/22: weight 211.5, BMI 31.23- educated extensive and lifestyle modifications. Patient was congratulated on efforts. Taking phentermine 15 mg with compliance, without any side effects. Interested in increasing dose of 30 mg. If patient continues to have minimal weight loss, could consider GLP-1 injection such as Wegovy next visit, as at that time, patient will have three consecutive months of trying to lose weight. Patient understanding and aware of this plan. Educated to increase more formal exercise. 01/09/2023: Weight 207.3, BMI 30.61-patient congratulated on efforts, has been losing some weight. Taking phentermine 30 mg with compliance, without any side effects. Is noticing more appetite suppression on 30 mg then 15. Interested in increasing dose to 37.5. We did have a discussion about possibly switching to GLP-1 such as Wegovy, but having difficulty with supply at this time therefore we will continue phentermine 37.5 at this time. Did talk about compounded semaglutide as well, but patient states she will find it difficult to come to the office once weekly. Will increase to phentermine 37.5, and add Topamax. Patient also does admit to occasional headaches and history of migraines and this could benefit that as well. Educated on proper use, as well as side effects. 02/08/2023: Weight 205, BMI 30.27. Patient congratulated on effort. Taking phentermine 37.5, and Topamax. Noticing some appetite suppression but not significant effect. Interested in tapering off, and starting a different medication such as GLP-1 injection. Patient aware of the national shortage difficulty, but is interested in Saxenda. Did discuss proper use, and side effects of medication. We will taper phentermine, and start Saxenda. 03/12/2023: Weight 207.1, BMI 30.58. Patient expresses frustration given her current circumstances. She has not been able to obtain Saxenda from the pharmacy despite insurance approval. Currently taking phentermine 15 mg with no effect despite maintaining lifestyle modifications. Goals reevaluated and discussed incorporating increased intensity exercise in addition to walking as tolerated. Contacted [facility] pharmacy in [place] who states they cannot dispense Saxenda secondary to supply issues. Called [facility] specialty pharmacy, and Saxenda continues to be on backorder until unknown date. Will send to other [facility] pharmacy in [place], but patient will continue to call pharmacies to see who has availability, and happy to send to pharmacy when she can find one. She is understanding and aware. 04/12/2023: Weight 209 pounds, BMI 30.86. Patient did gain weight, but upon review of body composition scan she did gain 3 pounds of muscle, and lost 1 pound of fat. She was congratulated. Has been working hard with exercise and focusing on portion control but she states that she is going in the opposite direction because she is off of phentermine. Is interested in weight loss medications, tried sending Saxenda but was unable to obtain due to supply concern. We will start compounded semaglutide 0.25 mg today, and follow-up in 4 weeks. Also sending for Wegovy 0.5 mg and she is going to call the pharmacy to see if she can find although she is aware of the national shortage. 07/24/2023: Weight 199.6, BMI 29.47. Patient is welcome back to the practice, has not followed up since April due to insurance concerns, but is now following with us today. Patient was doing really well on semaglutide, but feels like she is now plateauing. Taking 0.5 mg, but interested in increasing to 1 mg. Will provide semaglutide 1 mg today, and submit for Wegovy 1 mg.Encouraged to continue with lifestyle modifications. 12/24/2023: Weight 204.1, BMI 30.14. Patient has gained since visit,, trying to get back on track. Was taking Wegovy 1 mg doing well, has been off for 6 weeks, so we will try to get her back on 1 mg and if not we will increase her to Wegovy 1.7 mg. Educated on proper use, side effects, long-term risk. 03/05/2024: Weight 203, BMI 30. Taking Wegovy 1.7 mg, will continue for another 4 weeks, and then consider increasing to 2.4 mg. If still at a plateau, consider switching over to Zepbound. Implementing more resistance training, and higher protein. Body scan reviewed today 04/02/2024: Weight 199, BMI 29: Patient congratulated on effort, continuing to lose slow, steady weight. Continue with Wegovy 1.7 mg. Encouraged to increase more resistance training, protein, and water intake. Follow-up in 4 weeks, could consider increasing Wegovy to 2.4 mg, or continuing with dose. 05/08/2024: Weight 198, BMI 29.25. Patient continuing to walk. Exercise otherwise limited due to right shoulder pain for which she is following with a chiropractor. Continue Wegovy but increase to 2.4 mg. If no improvement, consider switching over to Zepbound. Following up for physical in 1 month. 06/10/2024: Weight 201, BMI 29.74. Patient sought a plateau, will discontinue Wegovy, switch to Zepbound 2.5 mg. Discussed proper use, side effects. Follow-up in 4 to 6 weeks. #Patient also has some concerns regarding thinning of hair. Thyroid within normal limits. States that it is her also in her family. Did discuss possible dermatology referral, or PRP injections through our [facility]. # Migraines: X 3 months. Adequate nutrition/hydration. Ibuprofen as needed, no red flag symptoms. Separate control, migraines have been worse since then. She is not interested in getting back on control. Symptoms persisting, so trial sumatriptan 25 mg, repeating dose after 2 hours if symptoms persist. Discussed proper use, side effects. If no improvement could consider alternative abortive/preventativ e therapies or imaging. #Patient taken Lexapro. No concerns at this time. # Hyperlipidemia: Labs from 08/26/2022 showing total cholesterol 294, triglycerides 323, LDL 169. Lipid panel from 12/25/2023 showing no improvement in cholesterol around 290, but improvement in triglycerides at 185, LDL 177.Based on cholesterol being 290, and cardiovascular risk factors will start rosuvastatin 10 mg, Due for repeat lipid panel to assess efficacy/compliance of medication. Will order today. We discussed lifestyle factors, she is eating a lot of shrimp, and red meat. Discussed fish, fish oil, [place], healthy fats. # Right shoulder pain: X 6 months, followed with a chiropractor and massage therapist without significant improvement. Will start with x-rays. Most likely will need physical therapy, Ortho referral, or further imaging. Discussed conservative treatments. Follow-up in 4 to 6 weeks for weight management. In the meantime x-ray of the right shoulder, and blood work. Will also assess efficacy/compliance of sumatriptan. Patient seen and examined. Comprehensive discussion was done on the following. 1. Nutrition: It is important to follow a healthy diet based on lots of vegetables and legumes and good fat. Avoid processed food and processed carbohydrates. Prepare your own meals. Read labels and avoid high fructose corn syrup, processed chemicals added to increase shelf life and preprepared meals. Avoid fast foods. Eat slowly and plan meals for a week. Try to count calories and be mindful off daily calorie intake. Get into the habit of keeping an eye on your weight by using an appropriate scale. Learn to log exercise and discussed fitness Apps like [employer] which can help keep log off calories taken versus calories burned. Local food should be preferred. Discussed Dirty Dozen Versus Clean Fifteen. Discussed healthy supplements like fish oil, Tumeric, Curcumin, Melatonin, Resveratrol, Probiotics, Vitamin-D, Alpha-Lipoic acid, Vitamin-D and coconut oil. 2. It is important to exercise regularly. Is a good habit to walk at least 30 minutes a day. Gentle weightlifting with standard precautions to protect the back. Finding activity like cycling or hiking and get into the habit of engaging in it. Stretching before and after the exercises important. It is also important to contact me if there are any problems like shortness of breath, chest pain, back pain and joint or muscle pain associated with the exercise. 3. Discussed age appropriate screening guidelines. Colonoscopy needs to start at age 50 with stool for occult blood as appropriate. There is a new test that can test for genetic abnormalities in the stool sample, Cologuard. This would not replace a colonoscopy but could be used as a screening tool for patients who do not want a colonoscopy. We discussed the importance of early detection of colon cancer. 4. Discussed current guidelines with respect to breast examination, mammogram and pap smear for early detection of breast and cervical cancer. Patient advised to follow up with these appointments. 5. Discussed safe driving and no use of smart phone while driving 6. Age-appropriate immunizations were discussed. A tetanus booster is needed every 10 years. Flu vaccine is recommended every year just before the start of the flu season. Shingles vaccine is recommended after age 50 but not all insurances cover it. Pneumonia vaccine is given after age 65 unless there are certain comorbidities for which it is started earlier. 7. Diagnostic labs were discussed. These could include/not limited to CBC CMP and lipids with fasting blood glucose and insulin levels. Vitamin D and hemoglobin A1c testing might be appropriate. All quetsions answered to patients satisfaction. Patient verbalized understanding of diagnosis and treatments explained. To call sooner prior to next visit it any questions/concerns arise. Case discussed with collaborating physician Riley Quintero who reviewed the assessment and plan. Chart, medications, labs, vital signs reviewed. Dictation was accomplished with the use of [employer] voice recognition software, prone to medical misidentifications and grammatical errors. This is unintentional and the practitioner does try to identify and correct these, but some could still be present. Please do not hesitate to contact practitioner for clarification. 05/08/2024 Overweight (ICD-10 - E66.3) 10/03/22: Weight 211, BMI 31.16- educated extensively on lifestyle modifications including high-protein, low carbohydrate, healthy fat, exercise, water intake, sleep hygiene, and stress relief. Patient will work on life so modifications of the next four weeks. Interested in weight loss medications. Start with Topamax 25 mg. Patient educated cannot drink alcohol on this medication. Most recent labs reviewed showing hyperlipidemia, without any insulin/diabetes concern. Patient educated on fish oil, diet, exercise. At next visit, will obtain EKG, and start phentermine 15 mg if EKG without concern. No concern for at this time. 10/31/22: weight 212, BMI 31.3- educated on lifestyle modifications. Patient went to [place], and then went to [place] and states that she has been traveling a lot and drinking more than usual. She is ready to get back on track. She has been walking more recently and focusing on portion control as well as eating earlier in the evening. She does feel some appetite suppression on metformin but is interested in starting an additional medication. She did not tolerate Topamax well. EKG's office today within normal limits. Will start phentermine 15 mg. Patient educated on side effects as well as proper use. Will follow-up in four weeks, sooner as needed.Encouraged to increase water intake. 12/05/22: weight 211.5, BMI 31.23- educated extensive and lifestyle modifications. Patient was congratulated on efforts. Taking phentermine 15 mg with compliance, without any side effects. Interested in increasing dose of 30 mg. If patient continues to have minimal weight loss, could consider GLP-1 injection such as Wegovy next visit, as at that time, patient will have three consecutive months of trying to lose weight. Patient understanding and aware of this plan. Educated to increase more formal exercise. 01/09/2023: Weight 207.3, BMI 30.61-patient congratulated on efforts, has been losing some weight. Taking phentermine 30 mg with compliance, without any side effects. Is noticing more appetite suppression on 30 mg then 15. Interested in increasing dose to 37.5. We did have a discussion about possibly switching to GLP-1 such as Wegovy, but having difficulty with supply at this time therefore we will continue phentermine 37.5 at this time. Did talk about compounded semaglutide as well, but patient states she will find it difficult to come to the office once weekly. Will increase to phentermine 37.5, and add Topamax. Patient also does admit to occasional headaches and history of migraines and this could benefit that as well. Educated on proper use, as well as side effects. 02/08/2023: Weight 205, BMI 30.27. Patient congratulated on effort. Taking phentermine 37.5, and Topamax. Noticing some appetite suppression but not significant effect. Interested in tapering off, and starting a different medication such as GLP-1 injection. Patient aware of the national shortage difficulty, but is interested in Saxenda. Did discuss proper use, and side effects of medication. We will taper phentermine, and start Saxenda. 03/12/2023: Weight 207.1, BMI 30.58. Patient expresses frustration given her current circumstances. She has not been able to obtain Saxenda from the pharmacy despite insurance approval. Currently taking phentermine 15 mg with no effect despite maintaining lifestyle modifications. Goals reevaluated and discussed incorporating increased intensity exercise in addition to walking as tolerated. Contacted [facility] pharmacy in [place] who states they cannot dispense Saxenda secondary to supply issues. Called [facility] specialty pharmacy, and Saxenda continues to be on backorder until unknown date. Will send to other [facility] pharmacy in [place], but patient will continue to call pharmacies to see who has availability, and happy to send to pharmacy when she can find one. She is understanding and aware. 04/12/2023: Weight 209 pounds, BMI 30.86. Patient did gain weight, but upon review of body composition scan she did gain 3 pounds of muscle, and lost 1 pound of fat. She was congratulated. Has been working hard with exercise and focusing on portion control but she states that she is going in the opposite direction because she is off of phentermine. Is interested in weight loss medications, tried sending Saxenda but was unable to obtain due to supply concern. We will start compounded semaglutide 0.25 mg today, and follow-up in 4 weeks. Also sending for Wegovy 0.5 mg and she is going to call the pharmacy to see if she can find although she is aware of the national shortage. 07/24/2023: Weight 199.6, BMI 29.47. Patient is welcome back to the practice, has not followed up since April due to insurance concerns, but is now following with us today. Patient was doing really well on semaglutide, but feels like she is now plateauing. Taking 0.5 mg, but interested in increasing to 1 mg. Will provide semaglutide 1 mg today, and submit for Wegovy 1 mg.Encouraged to continue with lifestyle modifications. 12/24/2023: Weight 204.1, BMI 30.14. Patient has gained since visit,, trying to get back on track. Was taking Wegovy 1 mg doing well, has been off for 6 weeks, so we will try to get her back on 1 mg and if not we will increase her to Wegovy 1.7 mg. Educated on proper use, side effects, long-term risk. 03/05/2024: Weight 203, BMI 30. Taking Wegovy 1.7 mg, will continue for another 4 weeks, and then consider increasing to 2.4 mg. If still at a plateau, consider switching over to Zepbound. Implementing more resistance training, and higher protein. Body scan reviewed today 04/02/2024: Weight 199, BMI 29: Patient congratulated on effort, continuing to lose slow, steady weight. Continue with Wegovy 1.7 mg. Encouraged to increase more resistance training, protein, and water intake. Follow-up in 4 weeks, could consider increasing Wegovy to 2.4 mg, or continuing with dose. 05/08/2024: Weight 198, BMI 29.25. Patient continuing to walk. Exercise otherwise limited due to right shoulder pain for which she is following with a chiropractor. Continue Wegovy but increase to 2.4 mg. If no improvement, consider switching over to Zepbound. Following up for physical in 1 month. #Patient also has some concerns regarding thinning of hair. Thyroid within normal limits. States that it is her also in her family. Did discuss possible dermatology referral, or PRP injections through our [facility]. # Migraines: X 3 months. Adequate nutrition/hydration. Stopped control 3 months ago at that time. When she was 16 she was put on control due to migraines. Following with her [facility] to potentially try getting back on it again. Ibuprofen as needed, no red flag symptoms. If symptoms persist, could consider abortive migraine management/imaging. #Patient taken Lexapro. No concerns at this time. # Hyperlipidemia: Labs from 08/26/2022 showing total cholesterol 294, triglycerides 323, LDL 169. Lipid panel from 12/25/2023 showing no improvement in cholesterol around 290, but improvement in triglycerides at 185, LDL 177.Based on cholesterol being 290, and cardiovascular risk factors will start rosuvastatin 10 mg, follow-up in the next 4 to 6 months for lipid panel and considering tapering down medication to 5 mg as patient does not want to be on this for long-term. We discussed lifestyle factors, she is eating a lot of shrimp, and red meat. Discussed fish, fish oil, [place], healthy fats. Patient to follow-up for complete physical in June, sooner as needed. Weight management in 4 weeks. Time spent with patient 30 minutes with greater than 50% of patient occasion and care coordination. All quetsions answered to patients satisfaction. Patient verbalized understanding of diagnosis and treatments explained. To call sooner prior to next visit it any questions/concerns arise. Case discussed with collaborating physician Riley Quintero who reviewed the assessment and plan. Chart, medications, labs, vital signs reviewed. Dictation was accomplished with the use of [employer] voice recognition software, prone to medical misidentifications and grammatical errors. This is unintentional and the practitioner does try to identify and correct these, but some could still be present. Please do not hesitate to contact practitioner for clarification. 06/10/2024 Gastroesophageal reflux disease without esophagitis (ICD-10 - K21.9) Glenis is a pleasant 43-year-old female presents the office for complete physical exam. Patient is up-to-date on all routine screenings, just had a mammogram this year, Pap smear this year. Follows with [facility] for both of those things. Declines flu and COVID vaccines, up-to-date on tetanus. Healthcare proxy is her boyfriend Cristino, and her mom Yeimi, which was filled out on 06/10/2024. PHQ-9 with a total score of 5, no concern regarding mental health at this time. 10/03/22: Weight 211, BMI 31.16- educated extensively on lifestyle modifications including high-protein, low carbohydrate, healthy fat, exercise, water intake, sleep hygiene, and stress relief. Patient will work on life so modifications of the next four weeks. Interested in weight loss medications. Start with Topamax 25 mg. Patient educated cannot drink alcohol on this medication. Most recent labs reviewed showing hyperlipidemia, without any insulin/diabetes concern. Patient educated on fish oil, diet, exercise. At next visit, will obtain EKG, and start phentermine 15 mg if EKG without concern. No concern for at this time. 10/31/22: weight 212, BMI 31.3- educated on lifestyle modifications. Patient went to [place], and then went to [place] and states that she has been traveling a lot and drinking more than usual. She is ready to get back on track. She has been walking more recently and focusing on portion control as well as eating earlier in the evening. She does feel some appetite suppression on metformin but is interested in starting an additional medication. She did not tolerate Topamax well. EKG's office today within normal limits. Will start phentermine 15 mg. Patient educated on side effects as well as proper use. Will follow-up in four weeks, sooner as needed.Encouraged to increase water intake. 12/05/22: weight 211.5, BMI 31.23- educated extensive and lifestyle modifications. Patient was congratulated on efforts. Taking phentermine 15 mg with compliance, without any side effects. Interested in increasing dose of 30 mg. If patient continues to have minimal weight loss, could consider GLP-1 injection such as Wegovy next visit, as at that time, patient will have three consecutive months of trying to lose weight. Patient understanding and aware of this plan. Educated to increase more formal exercise. 01/09/2023: Weight 207.3, BMI 30.61-patient congratulated on efforts, has been losing some weight. Taking phentermine 30 mg with compliance, without any side effects. Is noticing more appetite suppression on 30 mg then 15. Interested in increasing dose to 37.5. We did have a discussion about possibly switching to GLP-1 such as Wegovy, but having difficulty with supply at this time therefore we will continue phentermine 37.5 at this time. Did talk about compounded semaglutide as well, but patient states she will find it difficult to come to the office once weekly. Will increase to phentermine 37.5, and add Topamax. Patient also does admit to occasional headaches and history of migraines and this could benefit that as well. Educated on proper use, as well as side effects. 02/08/2023: Weight 205, BMI 30.27. Patient congratulated on effort. Taking phentermine 37.5, and Topamax. Noticing some appetite suppression but not significant effect. Interested in tapering off, and starting a different medication such as GLP-1 injection. Patient aware of the national shortage difficulty, but is interested in Saxenda. Did discuss proper use, and side effects of medication. We will taper phentermine, and start Saxenda. 03/12/2023: Weight 207.1, BMI 30.58. Patient expresses frustration given her current circumstances. She has not been able to obtain Saxenda from the pharmacy despite insurance approval. Currently taking phentermine 15 mg with no effect despite maintaining lifestyle modifications. Goals reevaluated and discussed incorporating increased intensity exercise in addition to walking as tolerated. Contacted [facility] pharmacy in [place] who states they cannot dispense Saxenda secondary to supply issues. Called [facility] specialty pharmacy, and Saxenda continues to be on backorder until unknown date. Will send to other [facility] pharmacy in [place], but patient will continue to call pharmacies to see who has availability, and happy to send to pharmacy when she can find one. She is understanding and aware. 04/12/2023: Weight 209 pounds, BMI 30.86. Patient did gain weight, but upon review of body composition scan she did gain 3 pounds of muscle, and lost 1 pound of fat. She was congratulated. Has been working hard with exercise and focusing on portion control but she states that she is going in the opposite direction because she is off of phentermine. Is interested in weight loss medications, tried sending Saxenda but was unable to obtain due to supply concern. We will start compounded semaglutide 0.25 mg today, and follow-up in 4 weeks. Also sending for Wegovy 0.5 mg and she is going to call the pharmacy to see if she can find although she is aware of the national shortage. 07/24/2023: Weight 199.6, BMI 29.47. Patient is welcome back to the practice, has not followed up since April due to insurance concerns, but is now following with us today. Patient was doing really well on semaglutide, but feels like she is now plateauing. Taking 0.5 mg, but interested in increasing to 1 mg. Will provide semaglutide 1 mg today, and submit for Wegovy 1 mg.Encouraged to continue with lifestyle modifications. 12/24/2023: Weight 204.1, BMI 30.14. Patient has gained since visit,, trying to get back on track. Was taking Wegovy 1 mg doing well, has been off for 6 weeks, so we will try to get her back on 1 mg and if not we will increase her to Wegovy 1.7 mg. Educated on proper use, side effects, long-term risk. 03/05/2024: Weight 203, BMI 30. Taking Wegovy 1.7 mg, will continue for another 4 weeks, and then consider increasing to 2.4 mg. If still at a plateau, consider switching over to Zepbound. Implementing more resistance training, and higher protein. Body scan reviewed today 04/02/2024: Weight 199, BMI 29: Patient congratulated on effort, continuing to lose slow, steady weight. Continue with Wegovy 1.7 mg. Encouraged to increase more resistance training, protein, and water intake. Follow-up in 4 weeks, could consider increasing Wegovy to 2.4 mg, or continuing with dose. 05/08/2024: Weight 198, BMI 29.25. Patient continuing to walk. Exercise otherwise limited due to right shoulder pain for which she is following with a chiropractor. Continue Wegovy but increase to 2.4 mg. If no improvement, consider switching over to Zepbound. Following up for physical in 1 month. 06/10/2024: Weight 201, BMI 29.74. Patient sought a plateau, will discontinue Wegovy, switch to Zepbound 2.5 mg. Discussed proper use, side effects. Follow-up in 4 to 6 weeks. #Patient also has some concerns regarding thinning of hair. Thyroid within normal limits. States that it is her also in her family. Did discuss possible dermatology referral, or PRP injections through our [facility]. # Migraines: X 3 months. Adequate nutrition/hydration. Ibuprofen as needed, no red flag symptoms. Separate control, migraines have been worse since then. She is not interested in getting back on control. Symptoms persisting, so trial sumatriptan 25 mg, repeating dose after 2 hours if symptoms persist. Discussed proper use, side effects. If no improvement could consider alternative abortive/preventativ e therapies or imaging. #Patient taken Lexapro. No concerns at this time. # Hyperlipidemia: Labs from 08/26/2022 showing total cholesterol 294, triglycerides 323, LDL 169. Lipid panel from 12/25/2023 showing no improvement in cholesterol around 290, but improvement in triglycerides at 185, LDL 177.Based on cholesterol being 290, and cardiovascular risk factors will start rosuvastatin 10 mg, Due for repeat lipid panel to assess efficacy/compliance of medication. Will order today. We discussed lifestyle factors, she is eating a lot of shrimp, and red meat. Discussed fish, fish oil, [place]'s, healthy fats. # Right shoulder pain: X 6 months, followed with a chiropractor and massage therapist without significant improvement. Will start with x-rays. Most likely will need physical therapy, Ortho referral, or further imaging. Discussed conservative treatments. Follow-up in 4 to 6 weeks for weight management. In the meantime x-ray of the right shoulder, and blood work. Will also assess efficacy/compliance of sumatriptan. Patient seen and examined. Comprehensive discussion was done on the following. 1. Nutrition: It is important to follow a healthy diet based on lots of vegetables and legumes and good fat. Avoid processed food and processed carbohydrates. Prepare your own meals. Read labels and avoid high fructose corn syrup, processed chemicals added to increase shelf life and preprepared meals. Avoid fast foods. Eat slowly and plan meals for a week. Try to count calories and be mindful off daily calorie intake. Get into the habit of keeping an eye on your weight by using an appropriate scale. Learn to log exercise and discussed fitness Apps like [employer] which can help keep log off calories taken versus calories burned. Local food should be preferred. Discussed Dirty Dozen Versus Clean Fifteen. Discussed healthy supplements like fish oil, Tumeric, Curcumin, Melatonin, Resveratrol, Probiotics, Vitamin-D, Alpha-Lipoic acid, Vitamin-D and coconut oil. 2. It is important to exercise regularly. Is a good habit to walk at least 30 minutes a day. Gentle weightlifting with standard precautions to protect the back. Finding activity like cycling or hiking and get into the habit of engaging in it. Stretching before and after the exercises important. It is also important to contact me if there are any problems like shortness of breath, chest pain, back pain and joint or muscle pain associated with the exercise. 3. Discussed age appropriate screening guidelines. Colonoscopy needs to start at age 50 with stool for occult blood as appropriate. There is a new test that can test for genetic abnormalities in the stool sample, Cologuard. This would not replace a colonoscopy but could be used as a screening tool for patients who do not want a colonoscopy. We discussed the importance of early detection of colon cancer. 4. Discussed current guidelines with respect to breast examination, mammogram and pap smear for early detection of breast and cervical cancer. Patient advised to follow up with these appointments. 5. Discussed safe driving and no use of smart phone while driving 6. Age-appropriate immunizations were discussed. A tetanus booster is needed every 10 years. Flu vaccine is recommended every year just before the start of the flu season. Shingles vaccine is recommended after age 50 but not all insurances cover it. Pneumonia vaccine is given after age 65 unless there are certain comorbidities for which it is started earlier. 7. Diagnostic labs were discussed. These could include/not limited to CBC CMP and lipids with fasting blood glucose and insulin levels. Vitamin D and hemoglobin A1c testing might be appropriate. All quetsions answered to patients satisfaction. Patient verbalized understanding of diagnosis and treatments explained. To call sooner prior to next visit it any questions/concerns arise. Case discussed with collaborating physician Riley Quintero who reviewed the assessment and plan. Chart, medications, labs, vital signs reviewed. Dictation was accomplished with the use of [employer] voice recognition software, prone to medical misidentifications and grammatical errors. This is unintentional and the practitioner does try to identify and correct these, but some could still be present. Please do not hesitate to contact practitioner for clarification. 05/08/2024 Gastroesophageal reflux disease without esophagitis (ICD-10 - K21.9) 10/03/22: Weight 211, BMI 31.16- educated extensively on lifestyle modifications including high-protein, low carbohydrate, healthy fat, exercise, water intake, sleep hygiene, and stress relief. Patient will work on life so modifications of the next four weeks. Interested in weight loss medications. Start with Topamax 25 mg. Patient educated cannot drink alcohol on this medication. Most recent labs reviewed showing hyperlipidemia, without any insulin/diabetes concern. Patient educated on fish oil, diet, exercise. At next visit, will obtain EKG, and start phentermine 15 mg if EKG without concern. No concern for at this time. 10/31/22: weight 212, BMI 31.3- educated on lifestyle modifications. Patient went to [place], and then went to [place] and states that she has been traveling a lot and drinking more than usual. She is ready to get back on track. She has been walking more recently and focusing on portion control as well as eating earlier in the evening. She does feel some appetite suppression on metformin but is interested in starting an additional medication. She did not tolerate Topamax well. EKG's office today within normal limits. Will start phentermine 15 mg. Patient educated on side effects as well as proper use. Will follow-up in four weeks, sooner as needed.Encouraged to increase water intake. 12/05/22: weight 211.5, BMI 31.23- educated extensive and lifestyle modifications. Patient was congratulated on efforts. Taking phentermine 15 mg with compliance, without any side effects. Interested in increasing dose of 30 mg. If patient continues to have minimal weight loss, could consider GLP-1 injection such as Wegovy next visit, as at that time, patient will have three consecutive months of trying to lose weight. Patient understanding and aware of this plan. Educated to increase more formal exercise. 01/09/2023: Weight 207.3, BMI 30.61-patient congratulated on efforts, has been losing some weight. Taking phentermine 30 mg with compliance, without any side effects. Is noticing more appetite suppression on 30 mg then 15. Interested in increasing dose to 37.5. We did have a discussion about possibly switching to GLP-1 such as Wegovy, but having difficulty with supply at this time therefore we will continue phentermine 37.5 at this time. Did talk about compounded semaglutide as well, but patient states she will find it difficult to come to the office once weekly. Will increase to phentermine 37.5, and add Topamax. Patient also does admit to occasional headaches and history of migraines and this could benefit that as well. Educated on proper use, as well as side effects. 02/08/2023: Weight 205, BMI 30.27. Patient congratulated on effort. Taking phentermine 37.5, and Topamax. Noticing some appetite suppression but not significant effect. Interested in tapering off, and starting a different medication such as GLP-1 injection. Patient aware of the national shortage difficulty, but is interested in Saxenda. Did discuss proper use, and side effects of medication. We will taper phentermine, and start Saxenda. 03/12/2023: Weight 207.1, BMI 30.58. Patient expresses frustration given her current circumstances. She has not been able to obtain Saxenda from the pharmacy despite insurance approval. Currently taking phentermine 15 mg with no effect despite maintaining lifestyle modifications. Goals reevaluated and discussed incorporating increased intensity exercise in addition to walking as tolerated. Contacted [facility] pharmacy in [place] who states they cannot dispense Saxenda secondary to supply issues. Called [facility] specialty pharmacy, and Saxenda continues to be on backorder until unknown date. Will send to other [facility] pharmacy in [place], but patient will continue to call pharmacies to see who has availability, and happy to send to pharmacy when she can find one. She is understanding and aware. 04/12/2023: Weight 209 pounds, BMI 30.86. Patient did gain weight, but upon review of body composition scan she did gain 3 pounds of muscle, and lost 1 pound of fat. She was congratulated. Has been working hard with exercise and focusing on portion control but she states that she is going in the opposite direction because she is off of phentermine. Is interested in weight loss medications, tried sending Saxenda but was unable to obtain due to supply concern. We will start compounded semaglutide 0.25 mg today, and follow-up in 4 weeks. Also sending for Wegovy 0.5 mg and she is going to call the pharmacy to see if she can find although she is aware of the national shortage. 07/24/2023: Weight 199.6, BMI 29.47. Patient is welcome back to the practice, has not followed up since April due to insurance concerns, but is now following with us today. Patient was doing really well on semaglutide, but feels like she is now plateauing. Taking 0.5 mg, but interested in increasing to 1 mg. Will provide semaglutide 1 mg today, and submit for Wegovy 1 mg.Encouraged to continue with lifestyle modifications. 12/24/2023: Weight 204.1, BMI 30.14. Patient has gained since visit,, trying to get back on track. Was taking Wegovy 1 mg doing well, has been off for 6 weeks, so we will try to get her back on 1 mg and if not we will increase her to Wegovy 1.7 mg. Educated on proper use, side effects, long-term risk. 03/05/2024: Weight 203, BMI 30. Taking Wegovy 1.7 mg, will continue for another 4 weeks, and then consider increasing to 2.4 mg. If still at a plateau, consider switching over to Zepbound. Implementing more resistance training, and higher protein. Body scan reviewed today 04/02/2024: Weight 199, BMI 29: Patient congratulated on effort, continuing to lose slow, steady weight. Continue with Wegovy 1.7 mg. Encouraged to increase more resistance training, protein, and water intake. Follow-up in 4 weeks, could consider increasing Wegovy to 2.4 mg, or continuing with dose. 05/08/2024: Weight 198, BMI 29.25. Patient continuing to walk. Exercise otherwise limited due to right shoulder pain for which she is following with a chiropractor. Continue Wegovy but increase to 2.4 mg. If no improvement, consider switching over to Zepbound. Following up for physical in 1 month. #Patient also has some concerns regarding thinning of hair. Thyroid within normal limits. States that it is her also in her family. Did discuss possible dermatology referral, or PRP injections through our [facility]. # Migraines: X 3 months. Adequate nutrition/hydration. Stopped control 3 months ago at that time. When she was 16 she was put on control due to migraines. Following with her [employer] to potentially try getting back on it again. Ibuprofen as needed, no red flag symptoms. If symptoms persist, could consider abortive migraine management/imaging. #Patient taken Lexapro. No concerns at this time. # Hyperlipidemia: Labs from 08/26/2022 showing total cholesterol 294, triglycerides 323, LDL 169. Lipid panel from 12/25/2023 showing no improvement in cholesterol around 290, but improvement in triglycerides at 185, LDL 177.Based on cholesterol being 290, and cardiovascular risk factors will start rosuvastatin 10 mg, follow-up in the next 4 to 6 months for lipid panel and considering tapering down medication to 5 mg as patient does not want to be on this for long-term. We discussed lifestyle factors, she is eating a lot of shrimp, and red meat. Discussed fish, fish oil, [place]'s, healthy fats. Patient to follow-up for complete physical in June, sooner as needed. Weight management in 4 weeks. Time spent with patient 30 minutes with greater than 50% of patient occasion and care coordination. All quetsions answered to patients satisfaction. Patient verbalized understanding of diagnosis and treatments explained. To call sooner prior to next visit it any questions/concerns arise. Case discussed with collaborating physician Riley Quintero who reviewed the assessment and plan. Chart, medications, labs, vital signs reviewed. Dictation was accomplished with the use of [employer] voice recognition software, prone to medical misidentifications and grammatical errors. This is unintentional and the practitioner does try to identify and correct these, but some could still be present. Please do not hesitate to contact practitioner for clarification. 07/28/2024 Anxiety (ICD-10 - F41.9) 10/03/22: Weight 211, BMI 31.16- educated extensively on lifestyle modifications including high-protein, low carbohydrate, healthy fat, exercise, water intake, sleep hygiene, and stress relief. Patient will work on life so modifications of the next four weeks. Interested in weight loss medications. Start with Topamax 25 mg. Patient educated cannot drink alcohol on this medication. Most recent labs reviewed showing hyperlipidemia, without any insulin/diabetes concern. Patient educated on fish oil, diet, exercise. At next visit, will obtain EKG, and start phentermine 15 mg if EKG without concern. No concern for at this time. 10/31/22: weight 212, BMI 31.3- educated on lifestyle modifications. Patient went to [place], and then went to [place] and states that she has been traveling a lot and drinking more than usual. She is ready to get back on track. She has been walking more recently and focusing on portion control as well as eating earlier in the evening. She does feel some appetite suppression on metformin but is interested in starting an additional medication. She did not tolerate Topamax well. EKG's office today within normal limits. Will start phentermine 15 mg. Patient educated on side effects as well as proper use. Will follow-up in four weeks, sooner as needed.Encouraged to increase water intake. 12/05/22: weight 211.5, BMI 31.23- educated extensive and lifestyle modifications. Patient was congratulated on efforts. Taking phentermine 15 mg with compliance, without any side effects. Interested in increasing dose of 30 mg. If patient continues to have minimal weight loss, could consider GLP-1 injection such as Wegovy next visit, as at that time, patient will have three consecutive months of trying to lose weight. Patient understanding and aware of this plan. Educated to increase more formal exercise. 01/09/2023: Weight 207.3, BMI 30.61-patient congratulated on efforts, has been losing some weight. Taking phentermine 30 mg with compliance, without any side effects. Is noticing more appetite suppression on 30 mg then 15. Interested in increasing dose to 37.5. We did have a discussion about possibly switching to GLP-1 such as Wegovy, but having difficulty with supply at this time therefore we will continue phentermine 37.5 at this time. Did talk about compounded semaglutide as well, but patient states she will find it difficult to come to the office once weekly. Will increase to phentermine 37.5, and add Topamax. Patient also does admit to occasional headaches and history of migraines and this could benefit that as well. Educated on proper use, as well as side effects. 02/08/2023: Weight 205, BMI 30.27. Patient congratulated on effort. Taking phentermine 37.5, and Topamax. Noticing some appetite suppression but not significant effect. Interested in tapering off, and starting a different medication such as GLP-1 injection. Patient aware of the national shortage difficulty, but is interested in Saxenda. Did discuss proper use, and side effects of medication. We will taper phentermine, and start Saxenda. 03/12/2023: Weight 207.1, BMI 30.58. Patient expresses frustration given her current circumstances. She has not been able to obtain Saxenda from the pharmacy despite insurance approval. Currently taking phentermine 15 mg with no effect despite maintaining lifestyle modifications. Goals reevaluated and discussed incorporating increased intensity exercise in addition to walking as tolerated. Contacted [facility] pharmacy in [place] who states they cannot dispense Saxenda secondary to supply issues. Called [facility] specialty pharmacy, and Saxenda continues to be on backorder until unknown date. Will send to other [facility] pharmacy in [place], but patient will continue to call pharmacies to see who has availability, and happy to send to pharmacy when she can find one. She is understanding and aware. 04/12/2023: Weight 209 pounds, BMI 30.86. Patient did gain weight, but upon review of body composition scan she did gain 3 pounds of muscle, and lost 1 pound of fat. She was congratulated. Has been working hard with exercise and focusing on portion control but she states that she is going in the opposite direction because she is off of phentermine. Is interested in weight loss medications, tried sending Saxenda but was unable to obtain due to supply concern. We will start compounded semaglutide 0.25 mg today, and follow-up in 4 weeks. Also sending for Wegovy 0.5 mg and she is going to call the pharmacy to see if she can find although she is aware of the national shortage. 07/24/2023: Weight 199.6, BMI 29.47. Patient is welcome back to the practice, has not followed up since April due to insurance concerns, but is now following with us today. Patient was doing really well on semaglutide, but feels like she is now plateauing. Taking 0.5 mg, but interested in increasing to 1 mg. Will provide semaglutide 1 mg today, and submit for Wegovy 1 mg.Encouraged to continue with lifestyle modifications. 12/24/2023: Weight 204.1, BMI 30.14. Patient has gained since visit,, trying to get back on track. Was taking Wegovy 1 mg doing well, has been off for 6 weeks, so we will try to get her back on 1 mg and if not we will increase her to Wegovy 1.7 mg. Educated on proper use, side effects, long-term risk. 03/05/2024: Weight 203, BMI 30. Taking Wegovy 1.7 mg, will continue for another 4 weeks, and then consider increasing to 2.4 mg. If still at a plateau, consider switching over to Zepbound. Implementing more resistance training, and higher protein. Body scan reviewed today 04/02/2024: Weight 199, BMI 29: Patient congratulated on effort, continuing to lose slow, steady weight. Continue with Wegovy 1.7 mg. Encouraged to increase more resistance training, protein, and water intake. Follow-up in 4 weeks, could consider increasing Wegovy to 2.4 mg, or continuing with dose. 05/08/2024: Weight 198, BMI 29.25. Patient continuing to walk. Exercise otherwise limited due to right shoulder pain for which she is following with a chiropractor. Continue Wegovy but increase to 2.4 mg. If no improvement, consider switching over to Zepbound. Following up for physical in 1 month. 06/10/2024: Weight 201, BMI 29.74. Patient sought a plateau, will discontinue Wegovy, switch to Zepbound 2.5 mg. Discussed proper use, side effects. Follow-up in 4 to 6 weeks. 07/28/2024: Weight 198, BMI 29. Weight plateaued since last visit. Switched over to Zepbound 2.5 mg, increased to 5 mg. Her grandmother just passed, so she has been planning arrangements and exercises been off. 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 #Patient also has some concerns regarding thinning of hair. Thyroid within normal limits. States that it is her also in her family. Did discuss possible dermatology referral, or PRP injections through our [facility]. # Migraines: X 3 months. Adequate nutrition/hydration. Ibuprofen as needed, no red flag symptoms. Separate control, migraines have been worse since then. She is not interested in getting back on control. Symptoms persisting, so trial sumatriptan 25 mg, repeating dose after 2 hours if symptoms persist. Discussed proper use, side effects. If no improvement could consider alternative abortive/preventativ e therapies or imaging. #Patient taken Lexapro. No concerns at this time. # Hyperlipidemia: Labs from 08/26/2022 showing total cholesterol 294, triglycerides 323, LDL 169. Lipid panel from 12/25/2023 showing no improvement in cholesterol around 290, but improvement in triglycerides at 185, LDL 177.Based on cholesterol being 290, and cardiovascular risk factors will start rosuvastatin 10 mg, Due for repeat lipid panel to assess efficacy/compliance of medication. Will order today. We discussed lifestyle factors, she is eating a lot of shrimp, and red meat. Discussed fish, fish oil, [place], healthy fats. # Right shoulder pain: X 6 months, followed with a chiropractor and massage therapist without significant improvement. Will start with x-rays. Most likely will need physical therapy, Ortho referral, or further imaging. Discussed conservative treatments.Patient is updated x-ray images of order. This with patient 30 minutes with greater than 50% patient education and coordination. Work prior to next visit. Follow-up in 6 weeks, sooner as needed All quetsions answered to patients satisfaction. Patient verbalized understanding of diagnosis and treatments explained. To call sooner prior to next visit it any questions/concerns arise. Case discussed with collaborating physician Riley Quintero who reviewed the assessment and plan. Chart, medications, labs, vital signs reviewed. Dictation was accomplished with the use of [employer] voice recognition software, prone to medical misidentifications and grammatical errors. This is unintentional and the practitioner does try to identify and correct these, but some could still be present. Please do not hesitate to contact practitioner for clarification. 09/10/2024 Mixed hyperlipidemia (ICD-10 - E78.2) 10/03/22: Weight 211, BMI 31.16- educated extensively on lifestyle modifications including high-protein, low carbohydrate, healthy fat, exercise, water intake, sleep hygiene, and stress relief. Patient will work on life so modifications of the next four weeks. Interested in weight loss medications. Start with Topamax 25 mg. Patient educated cannot drink alcohol on this medication. Most recent labs reviewed showing hyperlipidemia, without any insulin/diabetes concern. Patient educated on fish oil, diet, exercise. At next visit, will obtain EKG, and start phentermine 15 mg if EKG without concern. No concern for at this time. 10/31/22: weight 212, BMI 31.3- educated on lifestyle modifications. Patient went to [place], and then went to [place] and states that she has been traveling a lot and drinking more than usual. She is ready to get back on track. She has been walking more recently and focusing on portion control as well as eating earlier in the evening. She does feel some appetite suppression on metformin but is interested in starting an additional medication. She did not tolerate Topamax well. EKG's office today within normal limits. Will start phentermine 15 mg. Patient educated on side effects as well as proper use. Will follow-up in four weeks, sooner as needed.Encouraged to increase water intake. 12/05/22: weight 211.5, BMI 31.23- educated extensive and lifestyle modifications. Patient was congratulated on efforts. Taking phentermine 15 mg with compliance, without any side effects. Interested in increasing dose of 30 mg. If patient continues to have minimal weight loss, could consider GLP-1 injection such as Wegovy next visit, as at that time, patient will have three consecutive months of trying to lose weight. Patient understanding and aware of this plan. Educated to increase more formal exercise. 01/09/2023: Weight 207.3, BMI 30.61-patient congratulated on efforts, has been losing some weight. Taking phentermine 30 mg with compliance, without any side effects. Is noticing more appetite suppression on 30 mg then 15. Interested in increasing dose to 37.5. We did have a discussion about possibly switching to GLP-1 such as Wegovy, but having difficulty with supply at this time therefore we will continue phentermine 37.5 at this time. Did talk about compounded semaglutide as well, but patient states she will find it difficult to come to the office once weekly. Will increase to phentermine 37.5, and add Topamax. Patient also does admit to occasional headaches and history of migraines and this could benefit that as well. Educated on proper use, as well as side effects. 02/08/2023: Weight 205, BMI 30.27. Patient congratulated on effort. Taking phentermine 37.5, and Topamax. Noticing some appetite suppression but not significant effect. Interested in tapering off, and starting a different medication such as GLP-1 injection. Patient aware of the national shortage difficulty, but is interested in Saxenda. Did discuss proper use, and side effects of medication. We will taper phentermine, and start Saxenda. 03/12/2023: Weight 207.1, BMI 30.58. Patient expresses frustration given her current circumstances. She has not been able to obtain Saxenda from the pharmacy despite insurance approval. Currently taking phentermine 15 mg with no effect despite maintaining lifestyle modifications. Goals reevaluated and discussed incorporating increased intensity exercise in addition to walking as tolerated. Contacted [facility] pharmacy in [place] who states they cannot dispense Saxenda secondary to supply issues. Called [facility] specialty pharmacy, and Saxenda continues to be on backorder until unknown date. Will send to other [facility] pharmacy in [place], but patient will continue to call pharmacies to see who has availability, and happy to send to pharmacy when she can find one. She is understanding and aware. 04/12/2023: Weight 209 pounds, BMI 30.86. Patient did gain weight, but upon review of body composition scan she did gain 3 pounds of muscle, and lost 1 pound of fat. She was congratulated. Has been working hard with exercise and focusing on portion control but she states that she is going in the opposite direction because she is off of phentermine. Is interested in weight loss medications, tried sending Saxenda but was unable to obtain due to supply concern. We will start compounded semaglutide 0.25 mg today, and follow-up in 4 weeks. Also sending for Wegovy 0.5 mg and she is going to call the pharmacy to see if she can find although she is aware of the national shortage. 07/24/2023: Weight 199.6, BMI 29.47. Patient is welcome back to the practice, has not followed up since April due to insurance concerns, but is now following with us today. Patient was doing really well on semaglutide, but feels like she is now plateauing. Taking 0.5 mg, but interested in increasing to 1 mg. Will provide semaglutide 1 mg today, and submit for Wegovy 1 mg.Encouraged to continue with lifestyle modifications. 12/24/2023: Weight 204.1, BMI 30.14. Patient has gained since visit,, trying to get back on track. Was taking Wegovy 1 mg doing well, has been off for 6 weeks, so we will try to get her back on 1 mg and if not we will increase her to Wegovy 1.7 mg. Educated on proper use, side effects, long-term risk. 03/05/2024: Weight 203, BMI 30. Taking Wegovy 1.7 mg, will continue for another 4 weeks, and then consider increasing to 2.4 mg. If still at a plateau, consider switching over to Zepbound. Implementing more resistance training, and higher protein. Body scan reviewed today 04/02/2024: Weight 199, BMI 29: Patient congratulated on effort, continuing to lose slow, steady weight. Continue with Wegovy 1.7 mg. Encouraged to increase more resistance training, protein, and water intake. Follow-up in 4 weeks, could consider increasing Wegovy to 2.4 mg, or continuing with dose. 05/08/2024: Weight 198, BMI 29.25. Patient continuing to walk. Exercise otherwise limited due to right shoulder pain for which she is following with a chiropractor. Continue Wegovy but increase to 2.4 mg. If no improvement, consider switching over to Zepbound. Following up for physical in 1 month. 06/10/2024: Weight 201, BMI 29.74. Patient sought a plateau, will discontinue Wegovy, switch to Zepbound 2.5 mg. Discussed proper use, side effects. Follow-up in 4 to 6 weeks. 07/28/2024: Weight 198, BMI 29. Weight plateaued since last visit. Switched over to Zepbound 2.5 mg, increased to 5 mg. Her grandmother just passed, so she has been planning arrangements and exercises been off. 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 09/10/2024: Weight 197, BMI 29. Discontinuing Zepbound 2 weeks ago secondary to significant hair loss. Will hold off on all weight loss medications and follow-up in 4 weeks. Will obtain blood work prior # Hair loss: Ordering CBC, iron, TIBC, ferritin, ABHAY, CRP, estrogen, progesterone, testosterone, DHEA, TSH, T3, T4, vitamin D, and vitamin B12.Patient taking NutrAFUL. Consider dermatology referral. # Migraines: Adequate nutrition/hydration. Ibuprofen as needed, no red flag symptoms. Separate control, migraines have been worse since then. She is not interested in getting back on control. Taking sumatriptan as needed. If no improvement could consider alternative abortive/preventativ e therapies or imaging. #Patient taken Lexapro. No concerns at this time. # Hyperlipidemia: Labs from 08/26/2022 showing total cholesterol 294, triglycerides 323, LDL 169. Lipid panel from 12/25/2023 showing no improvement in cholesterol around 290, but improvement in triglycerides at 185, LDL 177.Based on cholesterol being 290, and cardiovascular risk factors Rosuvastatin 10 mg initiated. Repeating lipid panel. # Right shoulder pain: X 6 months, followed with a chiropractor and massage therapist without significant improvement.Ordered x-rays, although patient did not obtain. Follow-up in 4 weeks, lab in the meantime. All quetsions answered to patients satisfaction. Patient verbalized understanding of diagnosis and treatments explained. To call sooner prior to next visit it any questions/concerns arise. Case discussed with collaborating physician Riley Quintero who reviewed the assessment and plan. Chart, medications, labs, vital signs reviewed. Dictation was accomplished with the use of [employer] voice recognition software, prone to medical misidentifications and grammatical errors. This is unintentional and the practitioner does try to identify and correct these, but some could still be present. Please do not hesitate to contact practitioner for clarification. 11/17/2024 Episodic migraine (ICD-10 - G43.909) 10/03/22: Weight 211, BMI 31.16- educated extensively on lifestyle modifications including high-protein, low carbohydrate, healthy fat, exercise, water intake, sleep hygiene, and stress relief. Patient will work on life so modifications of the next four weeks. Interested in weight loss medications. Start with Topamax 25 mg. Patient educated cannot drink alcohol on this medication. Most recent labs reviewed showing hyperlipidemia, without any insulin/diabetes concern. Patient educated on fish oil, diet, exercise. At next visit, will obtain EKG, and start phentermine 15 mg if EKG without concern. No concern for at this time. 10/31/22: weight 212, BMI 31.3- educated on lifestyle modifications. Patient went to [place], and then went to [place] and states that she has been traveling a lot and drinking more than usual. She is ready to get back on track. She has been walking more recently and focusing on portion control as well as eating earlier in the evening. She does feel some appetite suppression on metformin but is interested in starting an additional medication. She did not tolerate Topamax well. EKG's office today within normal limits. Will start phentermine 15 mg. Patient educated on side effects as well as proper use. Will follow-up in four weeks, sooner as needed.Encouraged to increase water intake. 12/05/22: weight 211.5, BMI 31.23- educated extensive and lifestyle modifications. Patient was congratulated on efforts. Taking phentermine 15 mg with compliance, without any side effects. Interested in increasing dose of 30 mg. If patient continues to have minimal weight loss, could consider GLP-1 injection such as Wegovy next visit, as at that time, patient will have three consecutive months of trying to lose weight. Patient understanding and aware of this plan. Educated to increase more formal exercise. 01/09/2023: Weight 207.3, BMI 30.61-patient congratulated on efforts, has been losing some weight. Taking phentermine 30 mg with compliance, without any side effects. Is noticing more appetite suppression on 30 mg then 15. Interested in increasing dose to 37.5. We did have a discussion about possibly switching to GLP-1 such as Wegovy, but having difficulty with supply at this time therefore we will continue phentermine 37.5 at this time. Did talk about compounded semaglutide as well, but patient states she will find it difficult to come to the office once weekly. Will increase to phentermine 37.5, and add Topamax. Patient also does admit to occasional headaches and history of migraines and this could benefit that as well. Educated on proper use, as well as side effects. 02/08/2023: Weight 205, BMI 30.27. Patient congratulated on effort. Taking phentermine 37.5, and Topamax. Noticing some appetite suppression but not significant effect. Interested in tapering off, and starting a different medication such as GLP-1 injection. Patient aware of the national shortage difficulty, but is interested in Saxenda. Did discuss proper use, and side effects of medication. We will taper phentermine, and start Saxenda. 03/12/2023: Weight 207.1, BMI 30.58. Patient expresses frustration given her current circumstances. She has not been able to obtain Saxenda from the pharmacy despite insurance approval. Currently taking phentermine 15 mg with no effect despite maintaining lifestyle modifications. Goals reevaluated and discussed incorporating increased intensity exercise in addition to walking as tolerated. Contacted [facility] pharmacy in [place] who states they cannot dispense Saxenda secondary to supply issues. Called [facility] specialty pharmacy, and Saxenda continues to be on backorder until unknown date. Will send to other [facility] pharmacy in [place], but patient will continue to call pharmacies to see who has availability, and happy to send to pharmacy when she can find one. She is understanding and aware. 04/12/2023: Weight 209 pounds, BMI 30.86. Patient did gain weight, but upon review of body composition scan she did gain 3 pounds of muscle, and lost 1 pound of fat. She was congratulated. Has been working hard with exercise and focusing on portion control but she states that she is going in the opposite direction because she is off of phentermine. Is interested in weight loss medications, tried sending Saxenda but was unable to obtain due to supply concern. We will start compounded semaglutide 0.25 mg today, and follow-up in 4 weeks. Also sending for Wegovy 0.5 mg and she is going to call the pharmacy to see if she can find although she is aware of the national shortage. 07/24/2023: Weight 199.6, BMI 29.47. Patient is welcome back to the practice, has not followed up since April due to insurance concerns, but is now following with us today. Patient was doing really well on semaglutide, but feels like she is now plateauing. Taking 0.5 mg, but interested in increasing to 1 mg. Will provide semaglutide 1 mg today, and submit for Wegovy 1 mg.Encouraged to continue with lifestyle modifications. 12/24/2023: Weight 204.1, BMI 30.14. Patient has gained since visit,, trying to get back on track. Was taking Wegovy 1 mg doing well, has been off for 6 weeks, so we will try to get her back on 1 mg and if not we will increase her to Wegovy 1.7 mg. Educated on proper use, side effects, long-term risk. 03/05/2024: Weight 203, BMI 30. Taking Wegovy 1.7 mg, will continue for another 4 weeks, and then consider increasing to 2.4 mg. If still at a plateau, consider switching over to Zepbound. Implementing more resistance training, and higher protein. Body scan reviewed today 04/02/2024: Weight 199, BMI 29: Patient congratulated on effort, continuing to lose slow, steady weight. Continue with Wegovy 1.7 mg. Encouraged to increase more resistance training, protein, and water intake. Follow-up in 4 weeks, could consider increasing Wegovy to 2.4 mg, or continuing with dose. 05/08/2024: Weight 198, BMI 29.25. Patient continuing to walk. Exercise otherwise limited due to right shoulder pain for which she is following with a chiropractor. Continue Wegovy but increase to 2.4 mg. If no improvement, consider switching over to Zepbound. Following up for physical in 1 month. 06/10/2024: Weight 201, BMI 29.74. Patient sought a plateau, will discontinue Wegovy, switch to Zepbound 2.5 mg. Discussed proper use, side effects. Follow-up in 4 to 6 weeks. 07/28/2024: Weight 198, BMI 29. Weight plateaued since last visit. Switched over to Zepbound 2.5 mg, increased to 5 mg. Her grandmother just passed, so she has been planning arrangements and exercises been off. 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 09/10/2024: Weight 197, BMI 29. Discontinuing Zepbound 2 weeks ago secondary to significant hair loss. Will hold off on all weight loss medications and follow-up in 4 weeks. Will obtain blood work prior 11/17/2024 weight 221, BMI 32. start contrave, discussed proper use and side effects, and contact office with any concerns. Discussed reinitiating wegovy in the future, will trial contrave first. Discussed referral for [facility], Patient declines at this time. Follow up in 4-6 weeks # Hair loss: CBC, iron, TIBC, ferritin, ABHAY, CRP, estrogen, progesterone, testosterone, DHEA, TSH, T3, T4, were WNL, vitamin D was low, pt reports that she is taking vitamin D supplementation, vitamin B12 was low, pt recieved Vitamin B12 in office.Patient taking NutrAFUL [facility] improvment. Consider dermatology referral. # Migraines: Adequate nutrition/hydration. Ibuprofen as needed, no red flag symptoms. Separate control, migraines have been worse since then. She is not interested in getting back on control. Taking sumatriptan as needed. If no improvement could consider alternative abortive/preventativ e therapies or imaging. #Patient taken Lexapro 5 mg, patient states that her depression has been worse secondary to weight gain, will add on Contrave # Hyperlipidemia: 08/26/2022 showing total cholesterol 294, triglycerides 323, LDL 169. Lipid panel from 12/25/2023 showing no improvement in cholesterol around 290, but improvement in triglycerides at 185, LDL 177.Based on cholesterol being 290, and cardiovascular risk factors Rosuvastatin 10 mg initiated. Lab from 09/15/2024 total cholesterol 240, LDL 151, HDL 64. Repeating lipid panel in 3-4 months. if cholesterol is still elevated consider increasing Rosuvastatin. # Left shoulder pain: followed with a chiropractor and massage therapist without significant improvement.Ordered x-rays, although patient did not obtain. Ordered MRI of the LT shoulder Without contrast, concerned for rotater cuff abnormality Based on physical examination. Follow-up in 4 weeks, or sooner if needed. All quetsions answered to patients satisfaction. Patient verbalized understanding of diagnosis and treatments explained. To call sooner prior to next visit it any questions/concerns arise. Case discussed with collaborating physician Riley Quintero who reviewed the assessment and plan. Chart, medications, labs, vital signs reviewed. Dictation was accomplished with the use of [employer] voice recognition software, prone to medical misidentifications and grammatical errors. This is unintentional and the practitioner does try to identify and correct these, but some could still be present. Please do not hesitate to contact practitioner for clarification. 12/24/2024 Anxiety (ICD-10 - F41.9) 10/03/22: Weight 211, BMI 31.16- educated extensively on lifestyle modifications including high-protein, low carbohydrate, healthy fat, exercise, water intake, sleep hygiene, and stress relief. Patient will work on life so modifications of the next four weeks. Interested in weight loss medications. Start with Topamax 25 mg. Patient educated cannot drink alcohol on this medication. Most recent labs reviewed showing hyperlipidemia, without any insulin/diabetes concern. Patient educated on fish oil, diet, exercise. At next visit, will obtain EKG, and start phentermine 15 mg if EKG without concern. No concern for at this time. 10/31/22: weight 212, BMI 31.3- educated on lifestyle modifications. Patient went to [place], and then went to [place] and states that she has been traveling a lot and drinking more than usual. She is ready to get back on track. She has been walking more recently and focusing on portion control as well as eating earlier in the evening. She does feel some appetite suppression on metformin but is interested in starting an additional medication. She did not tolerate Topamax well. EKG's office today within normal limits. Will start phentermine 15 mg. Patient educated on side effects as well as proper use. Will follow-up in four weeks, sooner as needed.Encouraged to increase water intake. 12/05/22: weight 211.5, BMI 31.23- educated extensive and lifestyle modifications. Patient was congratulated on efforts. Taking phentermine 15 mg with compliance, without any side effects. Interested in increasing dose of 30 mg. If patient continues to have minimal weight loss, could consider GLP-1 injection such as Wegovy next visit, as at that time, patient will have three consecutive months of trying to lose weight. Patient understanding and aware of this plan. Educated to increase more formal exercise. 01/09/2023: Weight 207.3, BMI 30.61-patient congratulated on efforts, has been losing some weight. Taking phentermine 30 mg with compliance, without any side effects. Is noticing more appetite suppression on 30 mg then 15. Interested in increasing dose to 37.5. We did have a discussion about possibly switching to GLP-1 such as Wegovy, but having difficulty with supply at this time therefore we will continue phentermine 37.5 at this time. Did talk about compounded semaglutide as well, but patient states she will find it difficult to come to the office once weekly. Will increase to phentermine 37.5, and add Topamax. Patient also does admit to occasional headaches and history of migraines and this could benefit that as well. Educated on proper use, as well as side effects. 02/08/2023: Weight 205, BMI 30.27. Patient congratulated on effort. Taking phentermine 37.5, and Topamax. Noticing some appetite suppression but not significant effect. Interested in tapering off, and starting a different medication such as GLP-1 injection. Patient aware of the national shortage difficulty, but is interested in Saxenda. Did discuss proper use, and side effects of medication. We will taper phentermine, and start Saxenda. 03/12/2023: Weight 207.1, BMI 30.58. Patient expresses frustration given her current circumstances. She has not been able to obtain Saxenda from the pharmacy despite insurance approval. Currently taking phentermine 15 mg with no effect despite maintaining lifestyle modifications. Goals reevaluated and discussed incorporating increased intensity exercise in addition to walking as tolerated. Contacted [facility] pharmacy in [place] who states they cannot dispense Saxenda secondary to supply issues. Called [facility] specialty pharmacy, and Saxenda continues to be on backorder until unknown date. Will send to other [facility] pharmacy in [place], but patient will continue to call pharmacies to see who has availability, and happy to send to pharmacy when she can find one. She is understanding and aware. 04/12/2023: Weight 209 pounds, BMI 30.86. Patient did gain weight, but upon review of body composition scan she did gain 3 pounds of muscle, and lost 1 pound of fat. She was congratulated. Has been working hard with exercise and focusing on portion control but she states that she is going in the opposite direction because she is off of phentermine. Is interested in weight loss medications, tried sending Saxenda but was unable to obtain due to supply concern. We will start compounded semaglutide 0.25 mg today, and follow-up in 4 weeks. Also sending for Wegovy 0.5 mg and she is going to call the pharmacy to see if she can find although she is aware of the national shortage. 07/24/2023: Weight 199.6, BMI 29.47. Patient is welcome back to the practice, has not followed up since April due to insurance concerns, but is now following with us today. Patient was doing really well on semaglutide, but feels like she is now plateauing. Taking 0.5 mg, but interested in increasing to 1 mg. Will provide semaglutide 1 mg today, and submit for Wegovy 1 mg.Encouraged to continue with lifestyle modifications. 12/24/2023: Weight 204.1, BMI 30.14. Patient has gained since visit,, trying to get back on track. Was taking Wegovy 1 mg doing well, has been off for 6 weeks, so we will try to get her back on 1 mg and if not we will increase her to Wegovy 1.7 mg. Educated on proper use, side effects, long-term risk. 03/05/2024: Weight 203, BMI 30. Taking Wegovy 1.7 mg, will continue for another 4 weeks, and then consider increasing to 2.4 mg. If still at a plateau, consider switching over to Zepbound. Implementing more resistance training, and higher protein. Body scan reviewed today 04/02/2024: Weight 199, BMI 29: Patient congratulated on effort, continuing to lose slow, steady weight. Continue with Wegovy 1.7 mg. Encouraged to increase more resistance training, protein, and water intake. Follow-up in 4 weeks, could consider increasing Wegovy to 2.4 mg, or continuing with dose. 05/08/2024: Weight 198, BMI 29.25. Patient continuing to walk. Exercise otherwise limited due to right shoulder pain for which she is following with a chiropractor. Continue Wegovy but increase to 2.4 mg. If no improvement, consider switching over to Zepbound. Following up for physical in 1 month. 06/10/2024: Weight 201, BMI 29.74. Patient sought a plateau, will discontinue Wegovy, switch to Zepbound 2.5 mg. Discussed proper use, side effects. Follow-up in 4 to 6 weeks. 07/28/2024: Weight 198, BMI 29. Weight plateaued since last visit. Switched over to Zepbound 2.5 mg, increased to 5 mg. Her grandmother just passed, so she has been planning arrangements and exercises been off. 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 09/10/2024: Weight 197, BMI 29. Discontinuing Zepbound 2 weeks ago secondary to significant hair loss. Will hold off on all weight loss medications and follow-up in 4 weeks. Will obtain blood work prior 11/17/2024 weight 221, BMI 32. start contrave, discussed proper use and side effects, and contact office with any concerns. Discussed reinitiating wegovy in the future, will trial contrave first. Discussed referral for mounter flutes and piccolos, Patient declines at this time. Follow up in 4-6 weeks 12/24/2024: Weight 225, BMI 33. Patient feeling well mentally taking Contrave, but not noticing any significant weight loss. Will reinitiate Wegovy 0.25 mg, discussed proper use and side effect. Continue to encourage walking. States she felt best on Wegovy. # Hair loss: CBC, iron, TIBC, ferritin, ABHAY, CRP, estrogen, progesterone, testosterone, DHEA, TSH, T3, T4, were WNL, vitamin D was low, pt reports that she is taking vitamin D supplementation, vitamin B12 was low, pt recieved Vitamin B12 in office.Patient taking NutrAFUL wth improvment. Consider dermatology referral. No further workup needed at this time.Is aware GLP-1's and weight loss can promote normal hair loss. # Migraines: Adequate nutrition/hydration. Ibuprofen as needed, no red flag symptoms. Separate control, migraines have been worse since then. She is not interested in getting back on control. Taking sumatriptan as needed. If no improvement could consider alternative abortive/preventativ e therapies or imaging. #Patient taken Lexapro 5 mg, patient states that her depression has been worse secondary to weight gain, will add on Contrave # Hyperlipidemia: 08/26/2022 showing total cholesterol 294, triglycerides 323, LDL 169. Lipid panel from 12/25/2023 showing no improvement in cholesterol around 290, but improvement in triglycerides at 185, LDL 177.Based on cholesterol being 290, and cardiovascular risk factors Rosuvastatin 10 mg initiated. Lab from 09/15/2024 total cholesterol 240, LDL 151, HDL 64. Repeating lipid panel in 3-4 months. if cholesterol is still elevated consider increasing Rosuvastatin. # Left shoulder pain: followed with a chiropractor and massage therapist without significant improvement.Ordered x-rays, although patient did not obtain. Ordered MRI, showing tendinitis. Scheduled with Ortho in the next 3 weeks for cortisone injections. Follow-up in 4-6 weeks, or sooner if needed. Time spent with patient 30 minutes with greater than 50% on patient education and care coordination All quetsions answered to patients satisfaction. Patient verbalized understanding of diagnosis and treatments explained. To call sooner prior to next visit it any questions/concerns arise. Case discussed with collaborating physician Riley Quintero who reviewed the assessment and plan. Chart, medications, labs, vital signs reviewed. Dictation was accomplished with the use of [employer] voice recognition software, prone to medical misidentifications and grammatical errors. This is unintentional and the practitioner does try to identify and correct these, but some could still be present. Please do not hesitate to contact practitioner for clarification. 03/04/2025 Pain, joint, shoulder, left (ICD-10 - M25.512) 10/03/22: Weight 211, BMI 31.16- educated extensively on lifestyle modifications including high-protein, low carbohydrate, healthy fat, exercise, water intake, sleep hygiene, and stress relief. Patient will work on life so modifications of the next four weeks. Interested in weight loss medications. Start with Topamax 25 mg. Patient educated cannot drink alcohol on this medication. Most recent labs reviewed showing hyperlipidemia, without any insulin/diabetes concern. Patient educated on fish oil, diet, exercise. At next visit, will obtain EKG, and start phentermine 15 mg if EKG without concern. No concern for at this time. 10/31/22: weight 212, BMI 31.3- educated on lifestyle modifications. Patient went to [place], and then went to [place] and states that she has been traveling a lot and drinking more than usual. She is ready to get back on track. She has been walking more recently and focusing on portion control as well as eating earlier in the evening. She does feel some appetite suppression on metformin but is interested in starting an additional medication. She did not tolerate Topamax well. EKG's office today within normal limits. Will start phentermine 15 mg. Patient educated on side effects as well as proper use. Will follow-up in four weeks, sooner as needed.Encouraged to increase water intake. 12/05/22: weight 211.5, BMI 31.23- educated extensive and lifestyle modifications. Patient was congratulated on efforts. Taking phentermine 15 mg with compliance, without any side effects. Interested in increasing dose of 30 mg. If patient continues to have minimal weight loss, could consider GLP-1 injection such as Wegovy next visit, as at that time, patient will have three consecutive months of trying to lose weight. Patient understanding and aware of this plan. Educated to increase more formal exercise. 01/09/2023: Weight 207.3, BMI 30.61-patient congratulated on efforts, has been losing some weight. Taking phentermine 30 mg with compliance, without any side effects. Is noticing more appetite suppression on 30 mg then 15. Interested in increasing dose to 37.5. We did have a discussion about possibly switching to GLP-1 such as Wegovy, but having difficulty with supply at this time therefore we will continue phentermine 37.5 at this time. Did talk about compounded semaglutide as well, but patient states she will find it difficult to come to the office once weekly. Will increase to phentermine 37.5, and add Topamax. Patient also does admit to occasional headaches and history of migraines and this could benefit that as well. Educated on proper use, as well as side effects. 02/08/2023: Weight 205, BMI 30.27. Patient congratulated on effort. Taking phentermine 37.5, and Topamax. Noticing some appetite suppression but not significant effect. Interested in tapering off, and starting a different medication such as GLP-1 injection. Patient aware of the national shortage difficulty, but is interested in Saxenda. Did discuss proper use, and side effects of medication. We will taper phentermine, and start Saxenda. 03/12/2023: Weight 207.1, BMI 30.58. Patient expresses frustration given her current circumstances. She has not been able to obtain Saxenda from the pharmacy despite insurance approval. Currently taking phentermine 15 mg with no effect despite maintaining lifestyle modifications. Goals reevaluated and discussed incorporating increased intensity exercise in addition to walking as tolerated. Contacted [facility] pharmacy in [place] who states they cannot dispense Saxenda secondary to supply issues. Called [facility] specialty pharmacy, and Saxenda continues to be on backorder until unknown date. Will send to other [facility] pharmacy in [place], but patient will continue to call pharmacies to see who has availability, and happy to send to pharmacy when she can find one. She is understanding and aware. 04/12/2023: Weight 209 pounds, BMI 30.86. Patient did gain weight, but upon review of body composition scan she did gain 3 pounds of muscle, and lost 1 pound of fat. She was congratulated. Has been working hard with exercise and focusing on portion control but she states that she is going in the opposite direction because she is off of phentermine. Is interested in weight loss medications, tried sending Saxenda but was unable to obtain due to supply concern. We will start compounded semaglutide 0.25 mg today, and follow-up in 4 weeks. Also sending for Wegovy 0.5 mg and she is going to call the pharmacy to see if she can find although she is aware of the national shortage. 07/24/2023: Weight 199.6, BMI 29.47. Patient is welcome back to the practice, has not followed up since April due to insurance concerns, but is now following with us today. Patient was doing really well on semaglutide, but feels like she is now plateauing. Taking 0.5 mg, but interested in increasing to 1 mg. Will provide semaglutide 1 mg today, and submit for Wegovy 1 mg.Encouraged to continue with lifestyle modifications. 12/24/2023: Weight 204.1, BMI 30.14. Patient has gained since visit,, trying to get back on track. Was taking Wegovy 1 mg doing well, has been off for 6 weeks, so we will try to get her back on 1 mg and if not we will increase her to Wegovy 1.7 mg. Educated on proper use, side effects, long-term risk. 03/05/2024: Weight 203, BMI 30. Taking Wegovy 1.7 mg, will continue for another 4 weeks, and then consider increasing to 2.4 mg. If still at a plateau, consider switching over to Zepbound. Implementing more resistance training, and higher protein. Body scan reviewed today 04/02/2024: Weight 199, BMI 29: Patient congratulated on effort, continuing to lose slow, steady weight. Continue with Wegovy 1.7 mg. Encouraged to increase more resistance training, protein, and water intake. Follow-up in 4 weeks, could consider increasing Wegovy to 2.4 mg, or continuing with dose. 05/08/2024: Weight 198, BMI 29.25. Patient continuing to walk. Exercise otherwise limited due to right shoulder pain for which she is following with a chiropractor. Continue Wegovy but increase to 2.4 mg. If no improvement, consider switching over to Zepbound. Following up for physical in 1 month. 06/10/2024: Weight 201, BMI 29.74. Patient sought a plateau, will discontinue Wegovy, switch to Zepbound 2.5 mg. Discussed proper use, side effects. Follow-up in 4 to 6 weeks. 07/28/2024: Weight 198, BMI 29. Weight plateaued since last visit. Switched over to Zepbound 2.5 mg, increased to 5 mg. Her grandmother just passed, so she has been planning arrangements and exercises been off. 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 09/10/2024: Weight 197, BMI 29. Discontinuing Zepbound 2 weeks ago secondary to significant hair loss. Will hold off on all weight loss medications and follow-up in 4 weeks. Will obtain blood work prior 11/17/2024 weight 221, BMI 32. start contrave, discussed proper use and side effects, and contact office with any concerns. Discussed reinitiating wegovy in the future, will trial contrave first. Discussed referral for mounter flutes and piccolos, Patient declines at this time. Follow up in 4-6 weeks 12/24/2024: Weight 225, BMI 33. Patient feeling well mentally taking Contrave, but not noticing any significant weight loss. Will reinitiate Wegovy 0.25 mg, discussed proper use and side effect. Continue to encourage walking. States she felt best on Wegovy. 03/04/2025: Weight 227, BMI 33. Continue with Wegovy 0.25 mg x 4 weeks, increasing 0.5 mg of Wegovy today March 04, 2025. Continue to encourage walking, and resistance training. Patient states hair loss is much improved. # Hair loss: CBC, iron, TIBC, ferritin, ABHAY, CRP, estrogen, progesterone, testosterone, DHEA, TSH, T3, T4, were WNL, vitamin D was low, pt reports that she is taking vitamin D supplementation, vitamin B12 was low, pt recieved Vitamin B12 in office.Patient taking NutrAFUL wth improvment. Consider dermatology referral. No further workup needed at this time.Is aware GLP-1's and weight loss can promote normal hair loss. # Migraines: Adequate nutrition/hydration. Ibuprofen as needed, no red flag symptoms. Separate control, migraines have been worse since then. She is not interested in getting back on control. Taking sumatriptan as needed. If no improvement could consider alternative abortive/preventativ e therapies or imaging. #Patient taken Lexapro 5 mg, patient states that her depression has been worse secondary to weight gain, will add on Contrave # Hyperlipidemia: 08/26/2022 showing total cholesterol 294, triglycerides 323, LDL 169. Lipid panel from 12/25/2023 showing no improvement in cholesterol around 290, but improvement in triglycerides at 185, LDL 177.Based on cholesterol being 290, and cardiovascular risk factors Rosuvastatin 10 mg initiated. Lab from 09/15/2024 total cholesterol 240, LDL 151, HDL 64. Repeating lipid panel in 3-4 months. if cholesterol is still elevated consider increasing Rosuvastatin. # Left shoulder pain: followed with a chiropractor and massage therapist without significant improvement.Ordered x-rays, although patient did not obtain. Ordered MRI, showing tendinitis. Scheduled with Ortho in the next 3 weeks for cortisone injections. Follow-up in 4-6 weeks, or sooner if needed. Time spent with patient 30 minutes with greater than 50% on patient education and care coordination All quetsions answered to patients satisfaction. Patient verbalized understanding of diagnosis and treatments explained. To call sooner prior to next visit it any questions/concerns arise. Case discussed with collaborating physician Riley Quintero who reviewed the assessment and plan. Chart, medications, labs, vital signs reviewed. Dictation was accomplished with the use of [employer] voice recognition software, prone to medical misidentifications and grammatical errors. This is unintentional and the practitioner does try to identify and correct these, but some could still be present. Please do not hesitate to contact practitioner for clarification. 04/13/2025 Anxiety (ICD-10 - F41.9) 10/03/22: Weight 211, BMI 31.16- educated extensively on lifestyle modifications including high-protein, low carbohydrate, healthy fat, exercise, water intake, sleep hygiene, and stress relief. Patient will work on life so modifications of the next four weeks. Interested in weight loss medications. Start with Topamax 25 mg. Patient educated cannot drink alcohol on this medication. Most recent labs reviewed showing hyperlipidemia, without any insulin/diabetes concern. Patient educated on fish oil, diet, exercise. At next visit, will obtain EKG, and start phentermine 15 mg if EKG without concern. No concern for at this time. 10/31/22: weight 212, BMI 31.3- educated on lifestyle modifications. Patient went to [place], and then went to [place] and states that she has been traveling a lot and drinking more than usual. She is ready to get back on track. She has been walking more recently and focusing on portion control as well as eating earlier in the evening. She does feel some appetite suppression on metformin but is interested in starting an additional medication. She did not tolerate Topamax well. EKG's office today within normal limits. Will start phentermine 15 mg. Patient educated on side effects as well as proper use. Will follow-up in four weeks, sooner as needed.Encouraged to increase water intake. 12/05/22: weight 211.5, BMI 31.23- educated extensive and lifestyle modifications. Patient was congratulated on efforts. Taking phentermine 15 mg with compliance, without any side effects. Interested in increasing dose of 30 mg. If patient continues to have minimal weight loss, could consider GLP-1 injection such as Wegovy next visit, as at that time, patient will have three consecutive months of trying to lose weight. Patient understanding and aware of this plan. Educated to increase more formal exercise. 01/09/2023: Weight 207.3, BMI 30.61-patient congratulated on efforts, has been losing some weight. Taking phentermine 30 mg with compliance, without any side effects. Is noticing more appetite suppression on 30 mg then 15. Interested in increasing dose to 37.5. We did have a discussion about possibly switching to GLP-1 such as Wegovy, but having difficulty with supply at this time therefore we will continue phentermine 37.5 at this time. Did talk about compounded semaglutide as well, but patient states she will find it difficult to come to the office once weekly. Will increase to phentermine 37.5, and add Topamax. Patient also does admit to occasional headaches and history of migraines and this could benefit that as well. Educated on proper use, as well as side effects. 02/08/2023: Weight 205, BMI 30.27. Patient congratulated on effort. Taking phentermine 37.5, and Topamax. Noticing some appetite suppression but not significant effect. Interested in tapering off, and starting a different medication such as GLP-1 injection. Patient aware of the national shortage difficulty, but is interested in Saxenda. Did discuss proper use, and side effects of medication. We will taper phentermine, and start Saxenda. 03/12/2023: Weight 207.1, BMI 30.58. Patient expresses frustration given her current circumstances. She has not been able to obtain Saxenda from the pharmacy despite insurance approval. Currently taking phentermine 15 mg with no effect despite maintaining lifestyle modifications. Goals reevaluated and discussed incorporating increased intensity exercise in addition to walking as tolerated. Contacted [facility] pharmacy in [place] who states they cannot dispense Saxenda secondary to supply issues. Called [facility] specialty pharmacy, and Saxenda continues to be on backorder until unknown date. Will send to other [facility] pharmacy in [place], but patient will continue to call pharmacies to see who has availability, and happy to send to pharmacy when she can find one. She is understanding and aware. 04/12/2023: Weight 209 pounds, BMI 30.86. Patient did gain weight, but upon review of body composition scan she did gain 3 pounds of muscle, and lost 1 pound of fat. She was congratulated. Has been working hard with exercise and focusing on portion control but she states that she is going in the opposite direction because she is off of phentermine. Is interested in weight loss medications, tried sending Saxenda but was unable to obtain due to supply concern. We will start compounded semaglutide 0.25 mg today, and follow-up in 4 weeks. Also sending for Wegovy 0.5 mg and she is going to call the pharmacy to see if she can find although she is aware of the national shortage. 07/24/2023: Weight 199.6, BMI 29.47. Patient is welcome back to the practice, has not followed up since April due to insurance concerns, but is now following with us today. Patient was doing really well on semaglutide, but feels like she is now plateauing. Taking 0.5 mg, but interested in increasing to 1 mg. Will provide semaglutide 1 mg today, and submit for Wegovy 1 mg.Encouraged to continue with lifestyle modifications. 12/24/2023: Weight 204.1, BMI 30.14. Patient has gained since visit,, trying to get back on track. Was taking Wegovy 1 mg doing well, has been off for 6 weeks, so we will try to get her back on 1 mg and if not we will increase her to Wegovy 1.7 mg. Educated on proper use, side effects, long-term risk. 03/05/2024: Weight 203, BMI 30. Taking Wegovy 1.7 mg, will continue for another 4 weeks, and then consider increasing to 2.4 mg. If still at a plateau, consider switching over to Zepbound. Implementing more resistance training, and higher protein. Body scan reviewed today 04/02/2024: Weight 199, BMI 29: Patient congratulated on effort, continuing to lose slow, steady weight. Continue with Wegovy 1.7 mg. Encouraged to increase more resistance training, protein, and water intake. Follow-up in 4 weeks, could consider increasing Wegovy to 2.4 mg, or continuing with dose. 05/08/2024: Weight 198, BMI 29.25. Patient continuing to walk. Exercise otherwise limited due to right shoulder pain for which she is following with a chiropractor. Continue Wegovy but increase to 2.4 mg. If no improvement, consider switching over to Zepbound. Following up for physical in 1 month. 06/10/2024: Weight 201, BMI 29.74. Patient sought a plateau, will discontinue Wegovy, switch to Zepbound 2.5 mg. Discussed proper use, side effects. Follow-up in 4 to 6 weeks. 07/28/2024: Weight 198, BMI 29. Weight plateaued since last visit. Switched over to Zepbound 2.5 mg, increased to 5 mg. Her grandmother just passed, so she has been planning arrangements and exercises been off. 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 09/10/2024: Weight 197, BMI 29. Discontinuing Zepbound 2 weeks ago secondary to significant hair loss. Will hold off on all weight loss medications and follow-up in 4 weeks. Will obtain blood work prior 11/17/2024 weight 221, BMI 32. start contrave, discussed proper use and side effects, and contact office with any concerns. Discussed reinitiating wegovy in the future, will trial contrave first. Discussed referral for mounter flutes and piccolos, Patient declines at this time. Follow up in 4-6 weeks 12/24/2024: Weight 225, BMI 33. Patient feeling well mentally taking Contrave, but not noticing any significant weight loss. Will reinitiate Wegovy 0.25 mg, discussed proper use and side effect. Continue to encourage walking. States she felt best on Wegovy. 03/04/2025: Weight 227, BMI 33. Continue with Wegovy 0.25 mg x 4 weeks, increasing 0.5 mg of Wegovy today March 04, 2025. Continue to encourage walking, and resistance training. Patient states hair loss is much improved. 04/13/2025: Weight 221, BMI 32. Losing slow, steady weight. Very pleased with progress overall. Increase Wegovy to 1 mg. Continue with exercise walking 3 miles daily, and focusing on increasing resistance training. # Hair loss: Ongoing hair loss/fatigue. TSH, T3 and T4 within normal limits back in September 2024 but patient states that her cousins have thyroid disease and she is requesting autoimmune workup. Will order autoimmune panel. Patient taking NutrAFUL wth improvment. Consider dermatology referral. No further workup needed at this time.Is aware GLP-1's and weight loss can promote normal hair loss. # Wart of left hand, refer to dermatology. Jdxq-kfx-awavpal regimen not helping # Migraines: Adequate nutrition/hydration. Ibuprofen as needed, no red flag symptoms. Separate control, migraines have been worse since then. She is not interested in getting back on control. Taking sumatriptan as needed. If no improvement could consider alternative abortive/preventativ e therapies or imaging. #Patient taken Lexapro 5 mg, patient states that her depression has been worse secondary to weight gain, will add on Contrave # Hyperlipidemia: 08/26/2022 showing total cholesterol 294, triglycerides 323, LDL 169. Lipid panel from 12/25/2023 showing no improvement in cholesterol around 290, but improvement in triglycerides at 185, LDL 177.Based on cholesterol being 290, and cardiovascular risk factors Rosuvastatin 10 mg initiated. Lab from 09/15/2024 total cholesterol 240, LDL 151, HDL 64. Repeating lipid panel in 3-4 months. if cholesterol is still elevated consider increasing Rosuvastatin. # Left shoulder pain: followed with a chiropractor and massage therapist without significant improvement.Ordered x-rays, although patient did not obtain. Ordered MRI, showing tendinitis. Scheduled with Ortho in the next 3 weeks for cortisone injections. Follow-up in 4-6 weeks, or sooner if needed. Time spent with patient 30 minutes with greater than 50% on patient education and care coordination All quetsions answered to patients satisfaction. Patient verbalized understanding of diagnosis and treatments explained. To call sooner prior to next visit it any questions/concerns arise. Case discussed with collaborating physician Riley Quinteor who reviewed the assessment and plan. Chart, medications, labs, vital signs reviewed. Dictation was accomplished with the use of [employer] voice recognition software, prone to medical misidentifications and grammatical errors. This is unintentional and the practitioner does try to identify and correct these, but some could still be present. Please do not hesitate to contact practitioner for clarification. 03/04/2025 Anxiety (ICD-10 - F41.9) 10/03/22: Weight 211, BMI 31.16- educated extensively on lifestyle modifications including high-protein, low carbohydrate, healthy fat, exercise, water intake, sleep hygiene, and stress relief. Patient will work on life so modifications of the next four weeks. Interested in weight loss medications. Start with Topamax 25 mg. Patient educated cannot drink alcohol on this medication. Most recent labs reviewed showing hyperlipidemia, without any insulin/diabetes concern. Patient educated on fish oil, diet, exercise. At next visit, will obtain EKG, and start phentermine 15 mg if EKG without concern. No concern for at this time. 10/31/22: weight 212, BMI 31.3- educated on lifestyle modifications. Patient went to [place], and then went to [place] and states that she has been traveling a lot and drinking more than usual. She is ready to get back on track. She has been walking more recently and focusing on portion control as well as eating earlier in the evening. She does feel some appetite suppression on metformin but is interested in starting an additional medication. She did not tolerate Topamax well. EKG's office today within normal limits. Will start phentermine 15 mg. Patient educated on side effects as well as proper use. Will follow-up in four weeks, sooner as needed.Encouraged to increase water intake. 12/05/22: weight 211.5, BMI 31.23- educated extensive and lifestyle modifications. Patient was congratulated on efforts. Taking phentermine 15 mg with compliance, without any side effects. Interested in increasing dose of 30 mg. If patient continues to have minimal weight loss, could consider GLP-1 injection such as Wegovy next visit, as at that time, patient will have three consecutive months of trying to lose weight. Patient understanding and aware of this plan. Educated to increase more formal exercise. 01/09/2023: Weight 207.3, BMI 30.61-patient congratulated on efforts, has been losing some weight. Taking phentermine 30 mg with compliance, without any side effects. Is noticing more appetite suppression on 30 mg then 15. Interested in increasing dose to 37.5. We did have a discussion about possibly switching to GLP-1 such as Wegovy, but having difficulty with supply at this time therefore we will continue phentermine 37.5 at this time. Did talk about compounded semaglutide as well, but patient states she will find it difficult to come to the office once weekly. Will increase to phentermine 37.5, and add Topamax. Patient also does admit to occasional headaches and history of migraines and this could benefit that as well. Educated on proper use, as well as side effects. 02/08/2023: Weight 205, BMI 30.27. Patient congratulated on effort. Taking phentermine 37.5, and Topamax. Noticing some appetite suppression but not significant effect. Interested in tapering off, and starting a different medication such as GLP-1 injection. Patient aware of the national shortage difficulty, but is interested in Saxenda. Did discuss proper use, and side effects of medication. We will taper phentermine, and start Saxenda. 03/12/2023: Weight 207.1, BMI 30.58. Patient expresses frustration given her current circumstances. She has not been able to obtain Saxenda from the pharmacy despite insurance approval. Currently taking phentermine 15 mg with no effect despite maintaining lifestyle modifications. Goals reevaluated and discussed incorporating increased intensity exercise in addition to walking as tolerated. Contacted [facility] pharmacy in [place] who states they cannot dispense Saxenda secondary to supply issues. Called [facility] specialty pharmacy, and Saxenda continues to be on backorder until unknown date. Will send to other [facility] pharmacy in [place], but patient will continue to call pharmacies to see who has availability, and happy to send to pharmacy when she can find one. She is understanding and aware. 04/12/2023: Weight 209 pounds, BMI 30.86. Patient did gain weight, but upon review of body composition scan she did gain 3 pounds of muscle, and lost 1 pound of fat. She was congratulated. Has been working hard with exercise and focusing on portion control but she states that she is going in the opposite direction because she is off of phentermine. Is interested in weight loss medications, tried sending Saxenda but was unable to obtain due to supply concern. We will start compounded semaglutide 0.25 mg today, and follow-up in 4 weeks. Also sending for Wegovy 0.5 mg and she is going to call the pharmacy to see if she can find although she is aware of the national shortage. 07/24/2023: Weight 199.6, BMI 29.47. Patient is welcome back to the practice, has not followed up since April due to insurance concerns, but is now following with us today. Patient was doing really well on semaglutide, but feels like she is now plateauing. Taking 0.5 mg, but interested in increasing to 1 mg. Will provide semaglutide 1 mg today, and submit for Wegovy 1 mg.Encouraged to continue with lifestyle modifications. 12/24/2023: Weight 204.1, BMI 30.14. Patient has gained since visit,, trying to get back on track. Was taking Wegovy 1 mg doing well, has been off for 6 weeks, so we will try to get her back on 1 mg and if not we will increase her to Wegovy 1.7 mg. Educated on proper use, side effects, long-term risk. 03/05/2024: Weight 203, BMI 30. Taking Wegovy 1.7 mg, will continue for another 4 weeks, and then consider increasing to 2.4 mg. If still at a plateau, consider switching over to Zepbound. Implementing more resistance training, and higher protein. Body scan reviewed today 04/02/2024: Weight 199, BMI 29: Patient congratulated on effort, continuing to lose slow, steady weight. Continue with Wegovy 1.7 mg. Encouraged to increase more resistance training, protein, and water intake. Follow-up in 4 weeks, could consider increasing Wegovy to 2.4 mg, or continuing with dose. 05/08/2024: Weight 198, BMI 29.25. Patient continuing to walk. Exercise otherwise limited due to right shoulder pain for which she is following with a chiropractor. Continue Wegovy but increase to 2.4 mg. If no improvement, consider switching over to Zepbound. Following up for physical in 1 month. 06/10/2024: Weight 201, BMI 29.74. Patient sought a plateau, will discontinue Wegovy, switch to Zepbound 2.5 mg. Discussed proper use, side effects. Follow-up in 4 to 6 weeks. 07/28/2024: Weight 198, BMI 29. Weight plateaued since last visit. Switched over to Zepbound 2.5 mg, increased to 5 mg. Her grandmother just passed, so she has been planning arrangements and exercises been off. 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 09/10/2024: Weight 197, BMI 29. Discontinuing Zepbound 2 weeks ago secondary to significant hair loss. Will hold off on all weight loss medications and follow-up in 4 weeks. Will obtain blood work prior 11/17/2024 weight 221, BMI 32. start contrave, discussed proper use and side effects, and contact office with any concerns. Discussed reinitiating wegovy in the future, will trial contrave first. Discussed referral for mounter flutes and piccolos, Patient declines at this time. Follow up in 4-6 weeks 12/24/2024: Weight 225, BMI 33. Patient feeling well mentally taking Contrave, but not noticing any significant weight loss. Will reinitiate Wegovy 0.25 mg, discussed proper use and side effect. Continue to encourage walking. States she felt best on Wegovy. 03/04/2025: Weight 227, BMI 33. Continue with Wegovy 0.25 mg x 4 weeks, increasing 0.5 mg of Wegovy today March 04, 2025. Continue to encourage walking, and resistance training. Patient states hair loss is much improved. # Hair loss: CBC, iron, TIBC, ferritin, ABHAY, CRP, estrogen, progesterone, testosterone, DHEA, TSH, T3, T4, were WNL, vitamin D was low, pt reports that she is taking vitamin D supplementation, vitamin B12 was low, pt recieved Vitamin B12 in office.Patient taking NutrAFUL [facility] improvment. Consider dermatology referral. No further workup needed at this time.Is aware GLP-1's and weight loss can promote normal hair loss. # Migraines: Adequate nutrition/hydration. Ibuprofen as needed, no red flag symptoms. Separate control, migraines have been worse since then. She is not interested in getting back on control. Taking sumatriptan as needed. If no improvement could consider alternative abortive/preventativ e therapies or imaging. #Patient taken Lexapro 5 mg, patient states that her depression has been worse secondary to weight gain, will add on Contrave # Hyperlipidemia: 08/26/2022 showing total cholesterol 294, triglycerides 323, LDL 169. Lipid panel from 12/25/2023 showing no improvement in cholesterol around 290, but improvement in triglycerides at 185, LDL 177.Based on cholesterol being 290, and cardiovascular risk factors Rosuvastatin 10 mg initiated. Lab from 09/15/2024 total cholesterol 240, LDL 151, HDL 64. Repeating lipid panel in 3-4 months. if cholesterol is still elevated consider increasing Rosuvastatin. # Left shoulder pain: followed with a chiropractor and massage therapist without significant improvement.Ordered x-rays, although patient did not obtain. Ordered MRI, showing tendinitis. Scheduled with Ortho in the next 3 weeks for cortisone injections. Follow-up in 4-6 weeks, or sooner if needed. Time spent with patient 30 minutes with greater than 50% on patient education and care coordination All quetsions answered to patients satisfaction. Patient verbalized understanding of diagnosis and treatments explained. To call sooner prior to next visit it any questions/concerns arise. Case discussed with collaborating physician Riley Quintero who reviewed the assessment and plan. Chart, medications, labs, vital signs reviewed. Dictation was accomplished with the use of [employer] voice recognition software, prone to medical misidentifications and grammatical errors. This is unintentional and the practitioner does try to identify and correct these, but some could still be present. Please do not hesitate to contact practitioner for clarification. 04/13/2025 Mixed hyperlipidemia (ICD-10 - E78.2) 10/03/22: Weight 211, BMI 31.16- educated extensively on lifestyle modifications including high-protein, low carbohydrate, healthy fat, exercise, water intake, sleep hygiene, and stress relief. Patient will work on life so modifications of the next four weeks. Interested in weight loss medications. Start with Topamax 25 mg. Patient educated cannot drink alcohol on this medication. Most recent labs reviewed showing hyperlipidemia, without any insulin/diabetes concern. Patient educated on fish oil, diet, exercise. At next visit, will obtain EKG, and start phentermine 15 mg if EKG without concern. No concern for at this time. 10/31/22: weight 212, BMI 31.3- educated on lifestyle modifications. Patient went to [place], and then went to [place] and states that she has been traveling a lot and drinking more than usual. She is ready to get back on track. She has been walking more recently and focusing on portion control as well as eating earlier in the evening. She does feel some appetite suppression on metformin but is interested in starting an additional medication. She did not tolerate Topamax well. EKG's office today within normal limits. Will start phentermine 15 mg. Patient educated on side effects as well as proper use. Will follow-up in four weeks, sooner as needed.Encouraged to increase water intake. 12/05/22: weight 211.5, BMI 31.23- educated extensive and lifestyle modifications. Patient was congratulated on efforts. Taking phentermine 15 mg with compliance, without any side effects. Interested in increasing dose of 30 mg. If patient continues to have minimal weight loss, could consider GLP-1 injection such as Wegovy next visit, as at that time, patient will have three consecutive months of trying to lose weight. Patient understanding and aware of this plan. Educated to increase more formal exercise. 01/09/2023: Weight 207.3, BMI 30.61-patient congratulated on efforts, has been losing some weight. Taking phentermine 30 mg with compliance, without any side effects. Is noticing more appetite suppression on 30 mg then 15. Interested in increasing dose to 37.5. We did have a discussion about possibly switching to GLP-1 such as Wegovy, but having difficulty with supply at this time therefore we will continue phentermine 37.5 at this time. Did talk about compounded semaglutide as well, but patient states she will find it difficult to come to the office once weekly. Will increase to phentermine 37.5, and add Topamax. Patient also does admit to occasional headaches and history of migraines and this could benefit that as well. Educated on proper use, as well as side effects. 02/08/2023: Weight 205, BMI 30.27. Patient congratulated on effort. Taking phentermine 37.5, and Topamax. Noticing some appetite suppression but not significant effect. Interested in tapering off, and starting a different medication such as GLP-1 injection. Patient aware of the national shortage difficulty, but is interested in Saxenda. Did discuss proper use, and side effects of medication. We will taper phentermine, and start Saxenda. 03/12/2023: Weight 207.1, BMI 30.58. Patient expresses frustration given her current circumstances. She has not been able to obtain Saxenda from the pharmacy despite insurance approval. Currently taking phentermine 15 mg with no effect despite maintaining lifestyle modifications. Goals reevaluated and discussed incorporating increased intensity exercise in addition to walking as tolerated. Contacted [facility] pharmacy in [place] who states they cannot dispense Saxenda secondary to supply issues. Called [facility] specialty pharmacy, and Saxenda continues to be on backorder until unknown date. Will send to other [facility] pharmacy in [place], but patient will continue to call pharmacies to see who has availability, and happy to send to pharmacy when she can find one. She is understanding and aware. 04/12/2023: Weight 209 pounds, BMI 30.86. Patient did gain weight, but upon review of body composition scan she did gain 3 pounds of muscle, and lost 1 pound of fat. She was congratulated. Has been working hard with exercise and focusing on portion control but she states that she is going in the opposite direction because she is off of phentermine. Is interested in weight loss medications, tried sending Saxenda but was unable to obtain due to supply concern. We will start compounded semaglutide 0.25 mg today, and follow-up in 4 weeks. Also sending for Wegovy 0.5 mg and she is going to call the pharmacy to see if she can find although she is aware of the national shortage. 07/24/2023: Weight 199.6, BMI 29.47. Patient is welcome back to the practice, has not followed up since April due to insurance concerns, but is now following with us today. Patient was doing really well on semaglutide, but feels like she is now plateauing. Taking 0.5 mg, but interested in increasing to 1 mg. Will provide semaglutide 1 mg today, and submit for Wegovy 1 mg.Encouraged to continue with lifestyle modifications. 12/24/2023: Weight 204.1, BMI 30.14. Patient has gained since visit,, trying to get back on track. Was taking Wegovy 1 mg doing well, has been off for 6 weeks, so we will try to get her back on 1 mg and if not we will increase her to Wegovy 1.7 mg. Educated on proper use, side effects, long-term risk. 03/05/2024: Weight 203, BMI 30. Taking Wegovy 1.7 mg, will continue for another 4 weeks, and then consider increasing to 2.4 mg. If still at a plateau, consider switching over to Zepbound. Implementing more resistance training, and higher protein. Body scan reviewed today 04/02/2024: Weight 199, BMI 29: Patient congratulated on effort, continuing to lose slow, steady weight. Continue with Wegovy 1.7 mg. Encouraged to increase more resistance training, protein, and water intake. Follow-up in 4 weeks, could consider increasing Wegovy to 2.4 mg, or continuing with dose. 05/08/2024: Weight 198, BMI 29.25. Patient continuing to walk. Exercise otherwise limited due to right shoulder pain for which she is following with a chiropractor. Continue Wegovy but increase to 2.4 mg. If no improvement, consider switching over to Zepbound. Following up for physical in 1 month. 06/10/2024: Weight 201, BMI 29.74. Patient sought a plateau, will discontinue Wegovy, switch to Zepbound 2.5 mg. Discussed proper use, side effects. Follow-up in 4 to 6 weeks. 07/28/2024: Weight 198, BMI 29. Weight plateaued since last visit. Switched over to Zepbound 2.5 mg, increased to 5 mg. Her grandmother just passed, so she has been planning arrangements and exercises been off. 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 09/10/2024: Weight 197, BMI 29. Discontinuing Zepbound 2 weeks ago secondary to significant hair loss. Will hold off on all weight loss medications and follow-up in 4 weeks. Will obtain blood work prior 11/17/2024 weight 221, BMI 32. start contrave, discussed proper use and side effects, and contact office with any concerns. Discussed reinitiating wegovy in the future, will trial contrave first. Discussed referral for mounter flutes and piccolos, Patient declines at this time. Follow up in 4-6 weeks 12/24/2024: Weight 225, BMI 33. Patient feeling well mentally taking Contrave, but not noticing any significant weight loss. Will reinitiate Wegovy 0.25 mg, discussed proper use and side effect. Continue to encourage walking. States she felt best on Wegovy. 03/04/2025: Weight 227, BMI 33. Continue with Wegovy 0.25 mg x 4 weeks, increasing 0.5 mg of Wegovy today March 04, 2025. Continue to encourage walking, and resistance training. Patient states hair loss is much improved. 04/13/2025: Weight 221, BMI 32. Losing slow, steady weight. Very pleased with progress overall. Increase Wegovy to 1 mg. Continue with exercise walking 3 miles daily, and focusing on increasing resistance training. # Hair loss: Ongoing hair loss/fatigue. TSH, T3 and T4 within normal limits back in September 2024 but patient states that her cousins have thyroid disease and she is requesting autoimmune workup. Will order autoimmune panel. Patient taking NutrAFUL wth improvment. Consider dermatology referral. No further workup needed at this time.Is aware GLP-1's and weight loss can promote normal hair loss. # Wart of left hand, refer to dermatology. Mobz-zgs-udnvbaf regimen not helping # Migraines: Adequate nutrition/hydration. Ibuprofen as needed, no red flag symptoms. Separate control, migraines have been worse since then. She is not interested in getting back on control. Taking sumatriptan as needed. If no improvement could consider alternative abortive/preventativ e therapies or imaging. #Patient taken Lexapro 5 mg, patient states that her depression has been worse secondary to weight gain, will add on Contrave # Hyperlipidemia: 08/26/2022 showing total cholesterol 294, triglycerides 323, LDL 169. Lipid panel from 12/25/2023 showing no improvement in cholesterol around 290, but improvement in triglycerides at 185, LDL 177.Based on cholesterol being 290, and cardiovascular risk factors Rosuvastatin 10 mg initiated. Lab from 09/15/2024 total cholesterol 240, LDL 151, HDL 64. Repeating lipid panel in 3-4 months. if cholesterol is still elevated consider increasing Rosuvastatin. # Left shoulder pain: followed with a chiropractor and massage therapist without significant improvement.Ordered x-rays, although patient did not obtain. Ordered MRI, showing tendinitis. Scheduled with Ortho in the next 3 weeks for cortisone injections. Follow-up in 4-6 weeks, or sooner if needed. Time spent with patient 30 minutes with greater than 50% on patient education and care coordination All quetsions answered to patients satisfaction. Patient verbalized understanding of diagnosis and treatments explained. To call sooner prior to next visit it any questions/concerns arise. Case discussed with collaborating physician Riley Quintero who reviewed the assessment and plan. Chart, medications, labs, vital signs reviewed. Dictation was accomplished with the use of [employer] voice recognition software, prone to medical misidentifications and grammatical errors. This is unintentional and the practitioner does try to identify and correct these, but some could still be present. Please do not hesitate to contact practitioner for clarification. 11/17/2024 Nutritional counseling (ICD-10 - Z71.3) 10/03/22: Weight 211, BMI 31.16- educated extensively on lifestyle modifications including high-protein, low carbohydrate, healthy fat, exercise, water intake, sleep hygiene, and stress relief. Patient will work on life so modifications of the next four weeks. Interested in weight loss medications. Start with Topamax 25 mg. Patient educated cannot drink alcohol on this medication. Most recent labs reviewed showing hyperlipidemia, without any insulin/diabetes concern. Patient educated on fish oil, diet, exercise. At next visit, will obtain EKG, and start phentermine 15 mg if EKG without concern. No concern for at this time. 10/31/22: weight 212, BMI 31.3- educated on lifestyle modifications. Patient went to [place], and then went to [place] and states that she has been traveling a lot and drinking more than usual. She is ready to get back on track. She has been walking more recently and focusing on portion control as well as eating earlier in the evening. She does feel some appetite suppression on metformin but is interested in starting an additional medication. She did not tolerate Topamax well. EKG's office today within normal limits. Will start phentermine 15 mg. Patient educated on side effects as well as proper use. Will follow-up in four weeks, sooner as needed.Encouraged to increase water intake. 12/05/22: weight 211.5, BMI 31.23- educated extensive and lifestyle modifications. Patient was congratulated on efforts. Taking phentermine 15 mg with compliance, without any side effects. Interested in increasing dose of 30 mg. If patient continues to have minimal weight loss, could consider GLP-1 injection such as Wegovy next visit, as at that time, patient will have three consecutive months of trying to lose weight. Patient understanding and aware of this plan. Educated to increase more formal exercise. 01/09/2023: Weight 207.3, BMI 30.61-patient congratulated on efforts, has been losing some weight. Taking phentermine 30 mg with compliance, without any side effects. Is noticing more appetite suppression on 30 mg then 15. Interested in increasing dose to 37.5. We did have a discussion about possibly switching to GLP-1 such as Wegovy, but having difficulty with supply at this time therefore we will continue phentermine 37.5 at this time. Did talk about compounded semaglutide as well, but patient states she will find it difficult to come to the office once weekly. Will increase to phentermine 37.5, and add Topamax. Patient also does admit to occasional headaches and history of migraines and this could benefit that as well. Educated on proper use, as well as side effects. 02/08/2023: Weight 205, BMI 30.27. Patient congratulated on effort. Taking phentermine 37.5, and Topamax. Noticing some appetite suppression but not significant effect. Interested in tapering off, and starting a different medication such as GLP-1 injection. Patient aware of the national shortage difficulty, but is interested in Saxenda. Did discuss proper use, and side effects of medication. We will taper phentermine, and start Saxenda. 03/12/2023: Weight 207.1, BMI 30.58. Patient expresses frustration given her current circumstances. She has not been able to obtain Saxenda from the pharmacy despite insurance approval. Currently taking phentermine 15 mg with no effect despite maintaining lifestyle modifications. Goals reevaluated and discussed incorporating increased intensity exercise in addition to walking as tolerated. Contacted [facility] pharmacy in [place] who states they cannot dispense Saxenda secondary to supply issues. Called [facility] specialty pharmacy, and Saxenda continues to be on backorder until unknown date. Will send to other [facility] pharmacy in [place], but patient will continue to call pharmacies to see who has availability, and happy to send to pharmacy when she can find one. She is understanding and aware. 04/12/2023: Weight 209 pounds, BMI 30.86. Patient did gain weight, but upon review of body composition scan she did gain 3 pounds of muscle, and lost 1 pound of fat. She was congratulated. Has been working hard with exercise and focusing on portion control but she states that she is going in the opposite direction because she is off of phentermine. Is interested in weight loss medications, tried sending Saxenda but was unable to obtain due to supply concern. We will start compounded semaglutide 0.25 mg today, and follow-up in 4 weeks. Also sending for Wegovy 0.5 mg and she is going to call the pharmacy to see if she can find although she is aware of the national shortage. 07/24/2023: Weight 199.6, BMI 29.47. Patient is welcome back to the practice, has not followed up since April due to insurance concerns, but is now following with us today. Patient was doing really well on semaglutide, but feels like she is now plateauing. Taking 0.5 mg, but interested in increasing to 1 mg. Will provide semaglutide 1 mg today, and submit for Wegovy 1 mg.Encouraged to continue with lifestyle modifications. 12/24/2023: Weight 204.1, BMI 30.14. Patient has gained since visit,, trying to get back on track. Was taking Wegovy 1 mg doing well, has been off for 6 weeks, so we will try to get her back on 1 mg and if not we will increase her to Wegovy 1.7 mg. Educated on proper use, side effects, long-term risk. 03/05/2024: Weight 203, BMI 30. Taking Wegovy 1.7 mg, will continue for another 4 weeks, and then consider increasing to 2.4 mg. If still at a plateau, consider switching over to Zepbound. Implementing more resistance training, and higher protein. Body scan reviewed today 04/02/2024: Weight 199, BMI 29: Patient congratulated on effort, continuing to lose slow, steady weight. Continue with Wegovy 1.7 mg. Encouraged to increase more resistance training, protein, and water intake. Follow-up in 4 weeks, could consider increasing Wegovy to 2.4 mg, or continuing with dose. 05/08/2024: Weight 198, BMI 29.25. Patient continuing to walk. Exercise otherwise limited due to right shoulder pain for which she is following with a chiropractor. Continue Wegovy but increase to 2.4 mg. If no improvement, consider switching over to Zepbound. Following up for physical in 1 month. 06/10/2024: Weight 201, BMI 29.74. Patient sought a plateau, will discontinue Wegovy, switch to Zepbound 2.5 mg. Discussed proper use, side effects. Follow-up in 4 to 6 weeks. 07/28/2024: Weight 198, BMI 29. Weight plateaued since last visit. Switched over to Zepbound 2.5 mg, increased to 5 mg. Her grandmother just passed, so she has been planning arrangements and exercises been off. 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 09/10/2024: Weight 197, BMI 29. Discontinuing Zepbound 2 weeks ago secondary to significant hair loss. Will hold off on all weight loss medications and follow-up in 4 weeks. Will obtain blood work prior 11/17/2024 weight 221, BMI 32. start contrave, discussed proper use and side effects, and contact office with any concerns. Discussed reinitiating wegovy in the future, will trial contrave first. Discussed referral for mounter flutes and piccolos, Patient declines at this time. Follow up in 4-6 weeks # Hair loss: CBC, iron, TIBC, ferritin, ABHAY, CRP, estrogen, progesterone, testosterone, DHEA, TSH, T3, T4, were WNL, vitamin D was low, pt reports that she is taking vitamin D supplementation, vitamin B12 was low, pt recieved Vitamin B12 in office.Patient taking NutrAFUL wth improvment. Consider dermatology referral. # Migraines: Adequate nutrition/hydration. Ibuprofen as needed, no red flag symptoms. Separate control, migraines have been worse since then. She is not interested in getting back on control. Taking sumatriptan as needed. If no improvement could consider alternative abortive/preventativ e therapies or imaging. #Patient taken Lexapro 5 mg, patient states that her depression has been worse secondary to weight gain, will add on Contrave # Hyperlipidemia: 08/26/2022 showing total cholesterol 294, triglycerides 323, LDL 169. Lipid panel from 12/25/2023 showing no improvement in cholesterol around 290, but improvement in triglycerides at 185, LDL 177.Based on cholesterol being 290, and cardiovascular risk factors Rosuvastatin 10 mg initiated. Lab from 09/15/2024 total cholesterol 240, LDL 151, HDL 64. Repeating lipid panel in 3-4 months. if cholesterol is still elevated consider increasing Rosuvastatin. # Left shoulder pain: followed with a chiropractor and massage therapist without significant improvement.Ordered x-rays, although patient did not obtain. Ordered MRI of the LT shoulder Without contrast, concerned for rotater cuff abnormality Based on physical examination. Follow-up in 4 weeks, or sooner if needed. All quetsions answered to patients satisfaction. Patient verbalized understanding of diagnosis and treatments explained. To call sooner prior to next visit it any questions/concerns arise. Case discussed with collaborating physician Riley Quintero who reviewed the assessment and plan. Chart, medications, labs, vital signs reviewed. Dictation was accomplished with the use of [employer] voice recognition software, prone to medical misidentifications and grammatical errors. This is unintentional and the practitioner does try to identify and correct these, but some could still be present. Please do not hesitate to contact practitioner for clarification. 12/24/2024 Mixed hyperlipidemia (ICD-10 - E78.2) 10/03/22: Weight 211, BMI 31.16- educated extensively on lifestyle modifications including high-protein, low carbohydrate, healthy fat, exercise, water intake, sleep hygiene, and stress relief. Patient will work on life so modifications of the next four weeks. Interested in weight loss medications. Start with Topamax 25 mg. Patient educated cannot drink alcohol on this medication. Most recent labs reviewed showing hyperlipidemia, without any insulin/diabetes concern. Patient educated on fish oil, diet, exercise. At next visit, will obtain EKG, and start phentermine 15 mg if EKG without concern. No concern for at this time. 10/31/22: weight 212, BMI 31.3- educated on lifestyle modifications. Patient went to [place], and then went to [place] and states that she has been traveling a lot and drinking more than usual. She is ready to get back on track. She has been walking more recently and focusing on portion control as well as eating earlier in the evening. She does feel some appetite suppression on metformin but is interested in starting an additional medication. She did not tolerate Topamax well. EKG's office today within normal limits. Will start phentermine 15 mg. Patient educated on side effects as well as proper use. Will follow-up in four weeks, sooner as needed.Encouraged to increase water intake. 12/05/22: weight 211.5, BMI 31.23- educated extensive and lifestyle modifications. Patient was congratulated on efforts. Taking phentermine 15 mg with compliance, without any side effects. Interested in increasing dose of 30 mg. If patient continues to have minimal weight loss, could consider GLP-1 injection such as Wegovy next visit, as at that time, patient will have three consecutive months of trying to lose weight. Patient understanding and aware of this plan. Educated to increase more formal exercise. 01/09/2023: Weight 207.3, BMI 30.61-patient congratulated on efforts, has been losing some weight. Taking phentermine 30 mg with compliance, without any side effects. Is noticing more appetite suppression on 30 mg then 15. Interested in increasing dose to 37.5. We did have a discussion about possibly switching to GLP-1 such as Wegovy, but having difficulty with supply at this time therefore we will continue phentermine 37.5 at this time. Did talk about compounded semaglutide as well, but patient states she will find it difficult to come to the office once weekly. Will increase to phentermine 37.5, and add Topamax. Patient also does admit to occasional headaches and history of migraines and this could benefit that as well. Educated on proper use, as well as side effects. 02/08/2023: Weight 205, BMI 30.27. Patient congratulated on effort. Taking phentermine 37.5, and Topamax. Noticing some appetite suppression but not significant effect. Interested in tapering off, and starting a different medication such as GLP-1 injection. Patient aware of the national shortage difficulty, but is interested in Saxenda. Did discuss proper use, and side effects of medication. We will taper phentermine, and start Saxenda. 03/12/2023: Weight 207.1, BMI 30.58. Patient expresses frustration given her current circumstances. She has not been able to obtain Saxenda from the pharmacy despite insurance approval. Currently taking phentermine 15 mg with no effect despite maintaining lifestyle modifications. Goals reevaluated and discussed incorporating increased intensity exercise in addition to walking as tolerated. Contacted [facility] pharmacy in [place] who states they cannot dispense Saxenda secondary to supply issues. Called [facility] specialty pharmacy, and Saxenda continues to be on backorder until unknown date. Will send to other [facility] pharmacy in [place], but patient will continue to call pharmacies to see who has availability, and happy to send to pharmacy when she can find one. She is understanding and aware. 04/12/2023: Weight 209 pounds, BMI 30.86. Patient did gain weight, but upon review of body composition scan she did gain 3 pounds of muscle, and lost 1 pound of fat. She was congratulated. Has been working hard with exercise and focusing on portion control but she states that she is going in the opposite direction because she is off of phentermine. Is interested in weight loss medications, tried sending Saxenda but was unable to obtain due to supply concern. We will start compounded semaglutide 0.25 mg today, and follow-up in 4 weeks. Also sending for Wegovy 0.5 mg and she is going to call the pharmacy to see if she can find although she is aware of the national shortage. 07/24/2023: Weight 199.6, BMI 29.47. Patient is welcome back to the practice, has not followed up since April due to insurance concerns, but is now following with us today. Patient was doing really well on semaglutide, but feels like she is now plateauing. Taking 0.5 mg, but interested in increasing to 1 mg. Will provide semaglutide 1 mg today, and submit for Wegovy 1 mg.Encouraged to continue with lifestyle modifications. 12/24/2023: Weight 204.1, BMI 30.14. Patient has gained since visit,, trying to get back on track. Was taking Wegovy 1 mg doing well, has been off for 6 weeks, so we will try to get her back on 1 mg and if not we will increase her to Wegovy 1.7 mg. Educated on proper use, side effects, long-term risk. 03/05/2024: Weight 203, BMI 30. Taking Wegovy 1.7 mg, will continue for another 4 weeks, and then consider increasing to 2.4 mg. If still at a plateau, consider switching over to Zepbound. Implementing more resistance training, and higher protein. Body scan reviewed today 04/02/2024: Weight 199, BMI 29: Patient congratulated on effort, continuing to lose slow, steady weight. Continue with Wegovy 1.7 mg. Encouraged to increase more resistance training, protein, and water intake. Follow-up in 4 weeks, could consider increasing Wegovy to 2.4 mg, or continuing with dose. 05/08/2024: Weight 198, BMI 29.25. Patient continuing to walk. Exercise otherwise limited due to right shoulder pain for which she is following with a chiropractor. Continue Wegovy but increase to 2.4 mg. If no improvement, consider switching over to Zepbound. Following up for physical in 1 month. 06/10/2024: Weight 201, BMI 29.74. Patient sought a plateau, will discontinue Wegovy, switch to Zepbound 2.5 mg. Discussed proper use, side effects. Follow-up in 4 to 6 weeks. 07/28/2024: Weight 198, BMI 29. Weight plateaued since last visit. Switched over to Zepbound 2.5 mg, increased to 5 mg. Her grandmother just passed, so she has been planning arrangements and exercises been off. 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 09/10/2024: Weight 197, BMI 29. Discontinuing Zepbound 2 weeks ago secondary to significant hair loss. Will hold off on all weight loss medications and follow-up in 4 weeks. Will obtain blood work prior 11/17/2024 weight 221, BMI 32. start contrave, discussed proper use and side effects, and contact office with any concerns. Discussed reinitiating wegovy in the future, will trial contrave first. Discussed referral for mounter flutes and piccolos, Patient declines at this time. Follow up in 4-6 weeks 12/24/2024: Weight 225, BMI 33. Patient feeling well mentally taking Contrave, but not noticing any significant weight loss. Will reinitiate Wegovy 0.25 mg, discussed proper use and side effect. Continue to encourage walking. States she felt best on Wegovy. # Hair loss: CBC, iron, TIBC, ferritin, ABHAY, CRP, estrogen, progesterone, testosterone, DHEA, TSH, T3, T4, were WNL, vitamin D was low, pt reports that she is taking vitamin D supplementation, vitamin B12 was low, pt recieved Vitamin B12 in office.Patient taking NutrAFUL wth improvment. Consider dermatology referral. No further workup needed at this time.Is aware GLP-1's and weight loss can promote normal hair loss. # Migraines: Adequate nutrition/hydration. Ibuprofen as needed, no red flag symptoms. Separate control, migraines have been worse since then. She is not interested in getting back on control. Taking sumatriptan as needed. If no improvement could consider alternative abortive/preventativ e therapies or imaging. #Patient taken Lexapro 5 mg, patient states that her depression has been worse secondary to weight gain, will add on Contrave # Hyperlipidemia: 08/26/2022 showing total cholesterol 294, triglycerides 323, LDL 169. Lipid panel from 12/25/2023 showing no improvement in cholesterol around 290, but improvement in triglycerides at 185, LDL 177.Based on cholesterol being 290, and cardiovascular risk factors Rosuvastatin 10 mg initiated. Lab from 09/15/2024 total cholesterol 240, LDL 151, HDL 64. Repeating lipid panel in 3-4 months. if cholesterol is still elevated consider increasing Rosuvastatin. # Left shoulder pain: followed with a chiropractor and massage therapist without significant improvement.Ordered x-rays, although patient did not obtain. Ordered MRI, showing tendinitis. Scheduled with Ortho in the next 3 weeks for cortisone injections. Follow-up in 4-6 weeks, or sooner if needed. Time spent with patient 30 minutes with greater than 50% on patient education and care coordination All quetsions answered to patients satisfaction. Patient verbalized understanding of diagnosis and treatments explained. To call sooner prior to next visit it any questions/concerns arise. Case discussed with collaborating physician Riley Quintero who reviewed the assessment and plan. Chart, medications, labs, vital signs reviewed. Dictation was accomplished with the use of [employer] voice recognition software, prone to medical misidentifications and grammatical errors. This is unintentional and the practitioner does try to identify and correct these, but some could still be present. Please do not hesitate to contact practitioner for clarification. 09/10/2024 Pain, joint, shoulder, right (ICD-10 - M25.511) 10/03/22: Weight 211, BMI 31.16- educated extensively on lifestyle modifications including high-protein, low carbohydrate, healthy fat, exercise, water intake, sleep hygiene, and stress relief. Patient will work on life so modifications of the next four weeks. Interested in weight loss medications. Start with Topamax 25 mg. Patient educated cannot drink alcohol on this medication. Most recent labs reviewed showing hyperlipidemia, without any insulin/diabetes concern. Patient educated on fish oil, diet, exercise. At next visit, will obtain EKG, and start phentermine 15 mg if EKG without concern. No concern for at this time. 10/31/22: weight 212, BMI 31.3- educated on lifestyle modifications. Patient went to [place], and then went to [place] and states that she has been traveling a lot and drinking more than usual. She is ready to get back on track. She has been walking more recently and focusing on portion control as well as eating earlier in the evening. She does feel some appetite suppression on metformin but is interested in starting an additional medication. She did not tolerate Topamax well. EKG's office today within normal limits. Will start phentermine 15 mg. Patient educated on side effects as well as proper use. Will follow-up in four weeks, sooner as needed.Encouraged to increase water intake. 12/05/22: weight 211.5, BMI 31.23- educated extensive and lifestyle modifications. Patient was congratulated on efforts. Taking phentermine 15 mg with compliance, without any side effects. Interested in increasing dose of 30 mg. If patient continues to have minimal weight loss, could consider GLP-1 injection such as Wegovy next visit, as at that time, patient will have three consecutive months of trying to lose weight. Patient understanding and aware of this plan. Educated to increase more formal exercise. 01/09/2023: Weight 207.3, BMI 30.61-patient congratulated on efforts, has been losing some weight. Taking phentermine 30 mg with compliance, without any side effects. Is noticing more appetite suppression on 30 mg then 15. Interested in increasing dose to 37.5. We did have a discussion about possibly switching to GLP-1 such as Wegovy, but having difficulty with supply at this time therefore we will continue phentermine 37.5 at this time. Did talk about compounded semaglutide as well, but patient states she will find it difficult to come to the office once weekly. Will increase to phentermine 37.5, and add Topamax. Patient also does admit to occasional headaches and history of migraines and this could benefit that as well. Educated on proper use, as well as side effects. 02/08/2023: Weight 205, BMI 30.27. Patient congratulated on effort. Taking phentermine 37.5, and Topamax. Noticing some appetite suppression but not significant effect. Interested in tapering off, and starting a different medication such as GLP-1 injection. Patient aware of the national shortage difficulty, but is interested in Saxenda. Did discuss proper use, and side effects of medication. We will taper phentermine, and start Saxenda. 03/12/2023: Weight 207.1, BMI 30.58. Patient expresses frustration given her current circumstances. She has not been able to obtain Saxenda from the pharmacy despite insurance approval. Currently taking phentermine 15 mg with no effect despite maintaining lifestyle modifications. Goals reevaluated and discussed incorporating increased intensity exercise in addition to walking as tolerated. Contacted [facility] pharmacy in [place] who states they cannot dispense Saxenda secondary to supply issues. Called [facility] specialty pharmacy, and Saxenda continues to be on backorder until unknown date. Will send to other [facility] pharmacy in [place], but patient will continue to call pharmacies to see who has availability, and happy to send to pharmacy when she can find one. She is understanding and aware. 04/12/2023: Weight 209 pounds, BMI 30.86. Patient did gain weight, but upon review of body composition scan she did gain 3 pounds of muscle, and lost 1 pound of fat. She was congratulated. Has been working hard with exercise and focusing on portion control but she states that she is going in the opposite direction because she is off of phentermine. Is interested in weight loss medications, tried sending Saxenda but was unable to obtain due to supply concern. We will start compounded semaglutide 0.25 mg today, and follow-up in 4 weeks. Also sending for Wegovy 0.5 mg and she is going to call the pharmacy to see if she can find although she is aware of the national shortage. 07/24/2023: Weight 199.6, BMI 29.47. Patient is welcome back to the practice, has not followed up since April due to insurance concerns, but is now following with us today. Patient was doing really well on semaglutide, but feels like she is now plateauing. Taking 0.5 mg, but interested in increasing to 1 mg. Will provide semaglutide 1 mg today, and submit for Wegovy 1 mg.Encouraged to continue with lifestyle modifications. 12/24/2023: Weight 204.1, BMI 30.14. Patient has gained since visit,, trying to get back on track. Was taking Wegovy 1 mg doing well, has been off for 6 weeks, so we will try to get her back on 1 mg and if not we will increase her to Wegovy 1.7 mg. Educated on proper use, side effects, long-term risk. 03/05/2024: Weight 203, BMI 30. Taking Wegovy 1.7 mg, will continue for another 4 weeks, and then consider increasing to 2.4 mg. If still at a plateau, consider switching over to Zepbound. Implementing more resistance training, and higher protein. Body scan reviewed today 04/02/2024: Weight 199, BMI 29: Patient congratulated on effort, continuing to lose slow, steady weight. Continue with Wegovy 1.7 mg. Encouraged to increase more resistance training, protein, and water intake. Follow-up in 4 weeks, could consider increasing Wegovy to 2.4 mg, or continuing with dose. 05/08/2024: Weight 198, BMI 29.25. Patient continuing to walk. Exercise otherwise limited due to right shoulder pain for which she is following with a chiropractor. Continue Wegovy but increase to 2.4 mg. If no improvement, consider switching over to Zepbound. Following up for physical in 1 month. 06/10/2024: Weight 201, BMI 29.74. Patient sought a plateau, will discontinue Wegovy, switch to Zepbound 2.5 mg. Discussed proper use, side effects. Follow-up in 4 to 6 weeks. 07/28/2024: Weight 198, BMI 29. Weight plateaued since last visit. Switched over to Zepbound 2.5 mg, increased to 5 mg. Her grandmother just passed, so she has been planning arrangements and exercises been off. 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 09/10/2024: Weight 197, BMI 29. Discontinuing Zepbound 2 weeks ago secondary to significant hair loss. Will hold off on all weight loss medications and follow-up in 4 weeks. Will obtain blood work prior # Hair loss: Ordering CBC, iron, TIBC, ferritin, ABHAY, CRP, estrogen, progesterone, testosterone, DHEA, TSH, T3, T4, vitamin D, and vitamin B12.Patient taking NutrAFUL. Consider dermatology referral. # Migraines: Adequate nutrition/hydration. Ibuprofen as needed, no red flag symptoms. Separate control, migraines have been worse since then. She is not interested in getting back on control. Taking sumatriptan as needed. If no improvement could consider alternative abortive/preventativ e therapies or imaging. #Patient taken Lexapro. No concerns at this time. # Hyperlipidemia: Labs from 08/26/2022 showing total cholesterol 294, triglycerides 323, LDL 169. Lipid panel from 12/25/2023 showing no improvement in cholesterol around 290, but improvement in triglycerides at 185, LDL 177.Based on cholesterol being 290, and cardiovascular risk factors Rosuvastatin 10 mg initiated. Repeating lipid panel. # Right shoulder pain: X 6 months, followed with a chiropractor and massage therapist without significant improvement.Ordered x-rays, although patient did not obtain. Follow-up in 4 weeks, lab in the meantime. All quetsions answered to patients satisfaction. Patient verbalized understanding of diagnosis and treatments explained. To call sooner prior to next visit it any questions/concerns arise. Case discussed with collaborating physician Riley Quintero who reviewed the assessment and plan. Chart, medications, labs, vital signs reviewed. Dictation was accomplished with the use of [employer] voice recognition software, prone to medical misidentifications and grammatical errors. This is unintentional and the practitioner does try to identify and correct these, but some could still be present. Please do not hesitate to contact practitioner for clarification. 06/10/2024 Anxiety (ICD-10 - F41.9) Glenis is a pleasant 43-year-old female presents the office for complete physical exam. Patient is up-to-date on all routine screenings, just had a mammogram this year, Pap smear this year. Follows with [facility] for both of those things. Declines flu and COVID vaccines, up-to-date on tetanus. Healthcare proxy is her boyfriend Cristino, and her mom Yeimi, which was filled out on 06/10/2024. PHQ-9 with a total score of 5, no concern regarding mental health at this time. 10/03/22: Weight 211, BMI 31.16- educated extensively on lifestyle modifications including high-protein, low carbohydrate, healthy fat, exercise, water intake, sleep hygiene, and stress relief. Patient will work on life so modifications of the next four weeks. Interested in weight loss medications. Start with Topamax 25 mg. Patient educated cannot drink alcohol on this medication. Most recent labs reviewed showing hyperlipidemia, without any insulin/diabetes concern. Patient educated on fish oil, diet, exercise. At next visit, will obtain EKG, and start phentermine 15 mg if EKG without concern. No concern for at this time. 10/31/22: weight 212, BMI 31.3- educated on lifestyle modifications. Patient went to [place], and then went to [place] and states that she has been traveling a lot and drinking more than usual. She is ready to get back on track. She has been walking more recently and focusing on portion control as well as eating earlier in the evening. She does feel some appetite suppression on metformin but is interested in starting an additional medication. She did not tolerate Topamax well. EKG's office today within normal limits. Will start phentermine 15 mg. Patient educated on side effects as well as proper use. Will follow-up in four weeks, sooner as needed.Encouraged to increase water intake. 12/05/22: weight 211.5, BMI 31.23- educated extensive and lifestyle modifications. Patient was congratulated on efforts. Taking phentermine 15 mg with compliance, without any side effects. Interested in increasing dose of 30 mg. If patient continues to have minimal weight loss, could consider GLP-1 injection such as Wegovy next visit, as at that time, patient will have three consecutive months of trying to lose weight. Patient understanding and aware of this plan. Educated to increase more formal exercise. 01/09/2023: Weight 207.3, BMI 30.61-patient congratulated on efforts, has been losing some weight. Taking phentermine 30 mg with compliance, without any side effects. Is noticing more appetite suppression on 30 mg then 15. Interested in increasing dose to 37.5. We did have a discussion about possibly switching to GLP-1 such as Wegovy, but having difficulty with supply at this time therefore we will continue phentermine 37.5 at this time. Did talk about compounded semaglutide as well, but patient states she will find it difficult to come to the office once weekly. Will increase to phentermine 37.5, and add Topamax. Patient also does admit to occasional headaches and history of migraines and this could benefit that as well. Educated on proper use, as well as side effects. 02/08/2023: Weight 205, BMI 30.27. Patient congratulated on effort. Taking phentermine 37.5, and Topamax. Noticing some appetite suppression but not significant effect. Interested in tapering off, and starting a different medication such as GLP-1 injection. Patient aware of the national shortage difficulty, but is interested in Saxenda. Did discuss proper use, and side effects of medication. We will taper phentermine, and start Saxenda. 03/12/2023: Weight 207.1, BMI 30.58. Patient expresses frustration given her current circumstances. She has not been able to obtain Saxenda from the pharmacy despite insurance approval. Currently taking phentermine 15 mg with no effect despite maintaining lifestyle modifications. Goals reevaluated and discussed incorporating increased intensity exercise in addition to walking as tolerated. Contacted [facility] pharmacy in [place] who states they cannot dispense Saxenda secondary to supply issues. Called [facility] specialty pharmacy, and Saxenda continues to be on backorder until unknown date. Will send to other [facility] pharmacy in [place], but patient will continue to call pharmacies to see who has availability, and happy to send to pharmacy when she can find one. She is understanding and aware. 04/12/2023: Weight 209 pounds, BMI 30.86. Patient did gain weight, but upon review of body composition scan she did gain 3 pounds of muscle, and lost 1 pound of fat. She was congratulated. Has been working hard with exercise and focusing on portion control but she states that she is going in the opposite direction because she is off of phentermine. Is interested in weight loss medications, tried sending Saxenda but was unable to obtain due to supply concern. We will start compounded semaglutide 0.25 mg today, and follow-up in 4 weeks. Also sending for Wegovy 0.5 mg and she is going to call the pharmacy to see if she can find although she is aware of the national shortage. 07/24/2023: Weight 199.6, BMI 29.47. Patient is welcome back to the practice, has not followed up since April due to insurance concerns, but is now following with us today. Patient was doing really well on semaglutide, but feels like she is now plateauing. Taking 0.5 mg, but interested in increasing to 1 mg. Will provide semaglutide 1 mg today, and submit for Wegovy 1 mg.Encouraged to continue with lifestyle modifications. 12/24/2023: Weight 204.1, BMI 30.14. Patient has gained since visit,, trying to get back on track. Was taking Wegovy 1 mg doing well, has been off for 6 weeks, so we will try to get her back on 1 mg and if not we will increase her to Wegovy 1.7 mg. Educated on proper use, side effects, long-term risk. 03/05/2024: Weight 203, BMI 30. Taking Wegovy 1.7 mg, will continue for another 4 weeks, and then consider increasing to 2.4 mg. If still at a plateau, consider switching over to Zepbound. Implementing more resistance training, and higher protein. Body scan reviewed today 04/02/2024: Weight 199, BMI 29: Patient congratulated on effort, continuing to lose slow, steady weight. Continue with Wegovy 1.7 mg. Encouraged to increase more resistance training, protein, and water intake. Follow-up in 4 weeks, could consider increasing Wegovy to 2.4 mg, or continuing with dose. 05/08/2024: Weight 198, BMI 29.25. Patient continuing to walk. Exercise otherwise limited due to right shoulder pain for which she is following with a chiropractor. Continue Wegovy but increase to 2.4 mg. If no improvement, consider switching over to Zepbound. Following up for physical in 1 month. 06/10/2024: Weight 201, BMI 29.74. Patient sought a plateau, will discontinue Wegovy, switch to Zepbound 2.5 mg. Discussed proper use, side effects. Follow-up in 4 to 6 weeks. #Patient also has some concerns regarding thinning of hair. Thyroid within normal limits. States that it is her also in her family. Did discuss possible dermatology referral, or PRP injections through our [facility]. # Migraines: X 3 months. Adequate nutrition/hydration. Ibuprofen as needed, no red flag symptoms. Separate control, migraines have been worse since then. She is not interested in getting back on control. Symptoms persisting, so trial sumatriptan 25 mg, repeating dose after 2 hours if symptoms persist. Discussed proper use, side effects. If no improvement could consider alternative abortive/preventativ e therapies or imaging. #Patient taken Lexapro. No concerns at this time. # Hyperlipidemia: Labs from 08/26/2022 showing total cholesterol 294, triglycerides 323, LDL 169. Lipid panel from 12/25/2023 showing no improvement in cholesterol around 290, but improvement in triglycerides at 185, LDL 177.Based on cholesterol being 290, and cardiovascular risk factors will start rosuvastatin 10 mg, Due for repeat lipid panel to assess efficacy/compliance of medication. Will order today. We discussed lifestyle factors, she is eating a lot of shrimp, and red meat. Discussed fish, fish oil, [place], healthy fats. # Right shoulder pain: X 6 months, followed with a chiropractor and massage therapist without significant improvement. Will start with x-rays. Most likely will need physical therapy, Ortho referral, or further imaging. Discussed conservative treatments. Follow-up in 4 to 6 weeks for weight management. In the meantime x-ray of the right shoulder, and blood work. Will also assess efficacy/compliance of sumatriptan. Patient seen and examined. Comprehensive discussion was done on the following. 1. Nutrition: It is important to follow a healthy diet based on lots of vegetables and legumes and good fat. Avoid processed food and processed carbohydrates. Prepare your own meals. Read labels and avoid high fructose corn syrup, processed chemicals added to increase shelf life and preprepared meals. Avoid fast foods. Eat slowly and plan meals for a week. Try to count calories and be mindful off daily calorie intake. Get into the habit of keeping an eye on your weight by using an appropriate scale. Learn to log exercise and discussed fitness Apps like [employer] which can help keep log off calories taken versus calories burned. Local food should be preferred. Discussed Dirty Dozen Versus Clean Fifteen. Discussed healthy supplements like fish oil, Tumeric, Curcumin, Melatonin, Resveratrol, Probiotics, Vitamin-D, Alpha-Lipoic acid, Vitamin-D and coconut oil. 2. It is important to exercise regularly. Is a good habit to walk at least 30 minutes a day. Gentle weightlifting with standard precautions to protect the back. Finding activity like cycling or hiking and get into the habit of engaging in it. Stretching before and after the exercises important. It is also important to contact me if there are any problems like shortness of breath, chest pain, back pain and joint or muscle pain associated with the exercise. 3. Discussed age appropriate screening guidelines. Colonoscopy needs to start at age 50 with stool for occult blood as appropriate. There is a new test that can test for genetic abnormalities in the stool sample, Cologuard. This would not replace a colonoscopy but could be used as a screening tool for patients who do not want a colonoscopy. We discussed the importance of early detection of colon cancer. 4. Discussed current guidelines with respect to breast examination, mammogram and pap smear for early detection of breast and cervical cancer. Patient advised to follow up with these appointments. 5. Discussed safe driving and no use of smart phone while driving 6. Age-appropriate immunizations were discussed. A tetanus booster is needed every 10 years. Flu vaccine is recommended every year just before the start of the flu season. Shingles vaccine is recommended after age 50 but not all insurances cover it. Pneumonia vaccine is given after age 65 unless there are certain comorbidities for which it is started earlier. 7. Diagnostic labs were discussed. These could include/not limited to CBC CMP and lipids with fasting blood glucose and insulin levels. Vitamin D and hemoglobin A1c testing might be appropriate. All quetsions answered to patients satisfaction. Patient verbalized understanding of diagnosis and treatments explained. To call sooner prior to next visit it any questions/concerns arise. Case discussed with collaborating physician Riley Quintero who reviewed the assessment and plan. Chart, medications, labs, vital signs reviewed. Dictation was accomplished with the use of [employer] voice recognition software, prone to medical misidentifications and grammatical errors. This is unintentional and the practitioner does try to identify and correct these, but some could still be present. Please do not hesitate to contact practitioner for clarification. 07/28/2024 Mixed hyperlipidemia (ICD-10 - E78.2) 10/03/22: Weight 211, BMI 31.16- educated extensively on lifestyle modifications including high-protein, low carbohydrate, healthy fat, exercise, water intake, sleep hygiene, and stress relief. Patient will work on life so modifications of the next four weeks. Interested in weight loss medications. Start with Topamax 25 mg. Patient educated cannot drink alcohol on this medication. Most recent labs reviewed showing hyperlipidemia, without any insulin/diabetes concern. Patient educated on fish oil, diet, exercise. At next visit, will obtain EKG, and start phentermine 15 mg if EKG without concern. No concern for at this time. 10/31/22: weight 212, BMI 31.3- educated on lifestyle modifications. Patient went to [place], and then went to [place] and states that she has been traveling a lot and drinking more than usual. She is ready to get back on track. She has been walking more recently and focusing on portion control as well as eating earlier in the evening. She does feel some appetite suppression on metformin but is interested in starting an additional medication. She did not tolerate Topamax well. EKG's office today within normal limits. Will start phentermine 15 mg. Patient educated on side effects as well as proper use. Will follow-up in four weeks, sooner as needed.Encouraged to increase water intake. 12/05/22: weight 211.5, BMI 31.23- educated extensive and lifestyle modifications. Patient was congratulated on efforts. Taking phentermine 15 mg with compliance, without any side effects. Interested in increasing dose of 30 mg. If patient continues to have minimal weight loss, could consider GLP-1 injection such as Wegovy next visit, as at that time, patient will have three consecutive months of trying to lose weight. Patient understanding and aware of this plan. Educated to increase more formal exercise. 01/09/2023: Weight 207.3, BMI 30.61-patient congratulated on efforts, has been losing some weight. Taking phentermine 30 mg with compliance, without any side effects. Is noticing more appetite suppression on 30 mg then 15. Interested in increasing dose to 37.5. We did have a discussion about possibly switching to GLP-1 such as Wegovy, but having difficulty with supply at this time therefore we will continue phentermine 37.5 at this time. Did talk about compounded semaglutide as well, but patient states she will find it difficult to come to the office once weekly. Will increase to phentermine 37.5, and add Topamax. Patient also does admit to occasional headaches and history of migraines and this could benefit that as well. Educated on proper use, as well as side effects. 02/08/2023: Weight 205, BMI 30.27. Patient congratulated on effort. Taking phentermine 37.5, and Topamax. Noticing some appetite suppression but not significant effect. Interested in tapering off, and starting a different medication such as GLP-1 injection. Patient aware of the national shortage difficulty, but is interested in Saxenda. Did discuss proper use, and side effects of medication. We will taper phentermine, and start Saxenda. 03/12/2023: Weight 207.1, BMI 30.58. Patient expresses frustration given her current circumstances. She has not been able to obtain Saxenda from the pharmacy despite insurance approval. Currently taking phentermine 15 mg with no effect despite maintaining lifestyle modifications. Goals reevaluated and discussed incorporating increased intensity exercise in addition to walking as tolerated. Contacted [facility] pharmacy in [place] who states they cannot dispense Saxenda secondary to supply issues. Called [facility] specialty pharmacy, and Saxenda continues to be on backorder until unknown date. Will send to other [facility] pharmacy in [place], but patient will continue to call pharmacies to see who has availability, and happy to send to pharmacy when she can find one. She is understanding and aware. 04/12/2023: Weight 209 pounds, BMI 30.86. Patient did gain weight, but upon review of body composition scan she did gain 3 pounds of muscle, and lost 1 pound of fat. She was congratulated. Has been working hard with exercise and focusing on portion control but she states that she is going in the opposite direction because she is off of phentermine. Is interested in weight loss medications, tried sending Saxenda but was unable to obtain due to supply concern. We will start compounded semaglutide 0.25 mg today, and follow-up in 4 weeks. Also sending for Wegovy 0.5 mg and she is going to call the pharmacy to see if she can find although she is aware of the national shortage. 07/24/2023: Weight 199.6, BMI 29.47. Patient is welcome back to the practice, has not followed up since April due to insurance concerns, but is now following with us today. Patient was doing really well on semaglutide, but feels like she is now plateauing. Taking 0.5 mg, but interested in increasing to 1 mg. Will provide semaglutide 1 mg today, and submit for Wegovy 1 mg.Encouraged to continue with lifestyle modifications. 12/24/2023: Weight 204.1, BMI 30.14. Patient has gained since visit,, trying to get back on track. Was taking Wegovy 1 mg doing well, has been off for 6 weeks, so we will try to get her back on 1 mg and if not we will increase her to Wegovy 1.7 mg. Educated on proper use, side effects, long-term risk. 03/05/2024: Weight 203, BMI 30. Taking Wegovy 1.7 mg, will continue for another 4 weeks, and then consider increasing to 2.4 mg. If still at a plateau, consider switching over to Zepbound. Implementing more resistance training, and higher protein. Body scan reviewed today 04/02/2024: Weight 199, BMI 29: Patient congratulated on effort, continuing to lose slow, steady weight. Continue with Wegovy 1.7 mg. Encouraged to increase more resistance training, protein, and water intake. Follow-up in 4 weeks, could consider increasing Wegovy to 2.4 mg, or continuing with dose. 05/08/2024: Weight 198, BMI 29.25. Patient continuing to walk. Exercise otherwise limited due to right shoulder pain for which she is following with a chiropractor. Continue Wegovy but increase to 2.4 mg. If no improvement, consider switching over to Zepbound. Following up for physical in 1 month. 06/10/2024: Weight 201, BMI 29.74. Patient sought a plateau, will discontinue Wegovy, switch to Zepbound 2.5 mg. Discussed proper use, side effects. Follow-up in 4 to 6 weeks. 07/28/2024: Weight 198, BMI 29. Weight plateaued since last visit. Switched over to Zepbound 2.5 mg, increased to 5 mg. Her grandmother just passed, so she has been planning arrangements and exercises been off. 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 #Patient also has some concerns regarding thinning of hair. Thyroid within normal limits. States that it is her also in her family. Did discuss possible dermatology referral, or PRP injections through our [facility]. # Migraines: X 3 months. Adequate nutrition/hydration. Ibuprofen as needed, no red flag symptoms. Separate control, migraines have been worse since then. She is not interested in getting back on control. Symptoms persisting, so trial sumatriptan 25 mg, repeating dose after 2 hours if symptoms persist. Discussed proper use, side effects. If no improvement could consider alternative abortive/preventativ e therapies or imaging. #Patient taken Lexapro. No concerns at this time. # Hyperlipidemia: Labs from 08/26/2022 showing total cholesterol 294, triglycerides 323, LDL 169. Lipid panel from 12/25/2023 showing no improvement in cholesterol around 290, but improvement in triglycerides at 185, LDL 177.Based on cholesterol being 290, and cardiovascular risk factors will start rosuvastatin 10 mg, Due for repeat lipid panel to assess efficacy/compliance of medication. Will order today. We discussed lifestyle factors, she is eating a lot of shrimp, and red meat. Discussed fish, fish oil, [place], healthy fats. # Right shoulder pain: X 6 months, followed with a chiropractor and massage therapist without significant improvement. Will start with x-rays. Most likely will need physical therapy, Ortho referral, or further imaging. Discussed conservative treatments.Patient is updated x-ray images of order. This with patient 30 minutes with greater than 50% patient education and coordination. Work prior to next visit. Follow-up in 6 weeks, sooner as needed All quetsions answered to patients satisfaction. Patient verbalized understanding of diagnosis and treatments explained. To call sooner prior to next visit it any questions/concerns arise. Case discussed with collaborating physician Riley Quintero who reviewed the assessment and plan. Chart, medications, labs, vital signs reviewed. Dictation was accomplished with the use of [employer] voice recognition software, prone to medical misidentifications and grammatical errors. This is unintentional and the practitioner does try to identify and correct these, but some could still be present. Please do not hesitate to contact practitioner for clarification. 05/08/2024 Anxiety (ICD-10 - F41.9) 10/03/22: Weight 211, BMI 31.16- educated extensively on lifestyle modifications including high-protein, low carbohydrate, healthy fat, exercise, water intake, sleep hygiene, and stress relief. Patient will work on life so modifications of the next four weeks. Interested in weight loss medications. Start with Topamax 25 mg. Patient educated cannot drink alcohol on this medication. Most recent labs reviewed showing hyperlipidemia, without any insulin/diabetes concern. Patient educated on fish oil, diet, exercise. At next visit, will obtain EKG, and start phentermine 15 mg if EKG without concern. No concern for at this time. 10/31/22: weight 212, BMI 31.3- educated on lifestyle modifications. Patient went to [place], and then went to [place] and states that she has been traveling a lot and drinking more than usual. She is ready to get back on track. She has been walking more recently and focusing on portion control as well as eating earlier in the evening. She does feel some appetite suppression on metformin but is interested in starting an additional medication. She did not tolerate Topamax well. EKG's office today within normal limits. Will start phentermine 15 mg. Patient educated on side effects as well as proper use. Will follow-up in four weeks, sooner as needed.Encouraged to increase water intake. 12/05/22: weight 211.5, BMI 31.23- educated extensive and lifestyle modifications. Patient was congratulated on efforts. Taking phentermine 15 mg with compliance, without any side effects. Interested in increasing dose of 30 mg. If patient continues to have minimal weight loss, could consider GLP-1 injection such as Wegovy next visit, as at that time, patient will have three consecutive months of trying to lose weight. Patient understanding and aware of this plan. Educated to increase more formal exercise. 01/09/2023: Weight 207.3, BMI 30.61-patient congratulated on efforts, has been losing some weight. Taking phentermine 30 mg with compliance, without any side effects. Is noticing more appetite suppression on 30 mg then 15. Interested in increasing dose to 37.5. We did have a discussion about possibly switching to GLP-1 such as Wegovy, but having difficulty with supply at this time therefore we will continue phentermine 37.5 at this time. Did talk about compounded semaglutide as well, but patient states she will find it difficult to come to the office once weekly. Will increase to phentermine 37.5, and add Topamax. Patient also does admit to occasional headaches and history of migraines and this could benefit that as well. Educated on proper use, as well as side effects. 02/08/2023: Weight 205, BMI 30.27. Patient congratulated on effort. Taking phentermine 37.5, and Topamax. Noticing some appetite suppression but not significant effect. Interested in tapering off, and starting a different medication such as GLP-1 injection. Patient aware of the national shortage difficulty, but is interested in Saxenda. Did discuss proper use, and side effects of medication. We will taper phentermine, and start Saxenda. 03/12/2023: Weight 207.1, BMI 30.58. Patient expresses frustration given her current circumstances. She has not been able to obtain Saxenda from the pharmacy despite insurance approval. Currently taking phentermine 15 mg with no effect despite maintaining lifestyle modifications. Goals reevaluated and discussed incorporating increased intensity exercise in addition to walking as tolerated. Contacted [facility] pharmacy in [place] who states they cannot dispense Saxenda secondary to supply issues. Called [facility] specialty pharmacy, and Saxenda continues to be on backorder until unknown date. Will send to other [facility] pharmacy in [place], but patient will continue to call pharmacies to see who has availability, and happy to send to pharmacy when she can find one. She is understanding and aware. 04/12/2023: Weight 209 pounds, BMI 30.86. Patient did gain weight, but upon review of body composition scan she did gain 3 pounds of muscle, and lost 1 pound of fat. She was congratulated. Has been working hard with exercise and focusing on portion control but she states that she is going in the opposite direction because she is off of phentermine. Is interested in weight loss medications, tried sending Saxenda but was unable to obtain due to supply concern. We will start compounded semaglutide 0.25 mg today, and follow-up in 4 weeks. Also sending for Wegovy 0.5 mg and she is going to call the pharmacy to see if she can find although she is aware of the national shortage. 07/24/2023: Weight 199.6, BMI 29.47. Patient is welcome back to the practice, has not followed up since April due to insurance concerns, but is now following with us today. Patient was doing really well on semaglutide, but feels like she is now plateauing. Taking 0.5 mg, but interested in increasing to 1 mg. Will provide semaglutide 1 mg today, and submit for Wegovy 1 mg.Encouraged to continue with lifestyle modifications. 12/24/2023: Weight 204.1, BMI 30.14. Patient has gained since visit,, trying to get back on track. Was taking Wegovy 1 mg doing well, has been off for 6 weeks, so we will try to get her back on 1 mg and if not we will increase her to Wegovy 1.7 mg. Educated on proper use, side effects, long-term risk. 03/05/2024: Weight 203, BMI 30. Taking Wegovy 1.7 mg, will continue for another 4 weeks, and then consider increasing to 2.4 mg. If still at a plateau, consider switching over to Zepbound. Implementing more resistance training, and higher protein. Body scan reviewed today 04/02/2024: Weight 199, BMI 29: Patient congratulated on effort, continuing to lose slow, steady weight. Continue with Wegovy 1.7 mg. Encouraged to increase more resistance training, protein, and water intake. Follow-up in 4 weeks, could consider increasing Wegovy to 2.4 mg, or continuing with dose. 05/08/2024: Weight 198, BMI 29.25. Patient continuing to walk. Exercise otherwise limited due to right shoulder pain for which she is following with a chiropractor. Continue Wegovy but increase to 2.4 mg. If no improvement, consider switching over to Zepbound. Following up for physical in 1 month. #Patient also has some concerns regarding thinning of hair. Thyroid within normal limits. States that it is her also in her family. Did discuss possible dermatology referral, or PRP injections through our [facility]. # Migraines: X 3 months. Adequate nutrition/hydration. Stopped control 3 months ago at that time. When she was 16 she was put on control due to migraines. Following with her [employer] to potentially try getting back on it again. Ibuprofen as needed, no red flag symptoms. If symptoms persist, could consider abortive migraine management/imaging. #Patient taken Lexapro. No concerns at this time. # Hyperlipidemia: Labs from 08/26/2022 showing total cholesterol 294, triglycerides 323, LDL 169. Lipid panel from 12/25/2023 showing no improvement in cholesterol around 290, but improvement in triglycerides at 185, LDL 177.Based on cholesterol being 290, and cardiovascular risk factors will start rosuvastatin 10 mg, follow-up in the next 4 to 6 months for lipid panel and considering tapering down medication to 5 mg as patient does not want to be on this for long-term. We discussed lifestyle factors, she is eating a lot of shrimp, and red meat. Discussed fish, fish oil, [place], healthy fats. Patient to follow-up for complete physical in June, sooner as needed. Weight management in 4 weeks. Time spent with patient 30 minutes with greater than 50% of patient occasion and care coordination. All quetsions answered to patients satisfaction. Patient verbalized understanding of diagnosis and treatments explained. To call sooner prior to next visit it any questions/concerns arise. Case discussed with collaborating physician Riley Quintero who reviewed the assessment and plan. Chart, medications, labs, vital signs reviewed. Dictation was accomplished with the use of [employer] voice recognition software, prone to medical misidentifications and grammatical errors. This is unintentional and the practitioner does try to identify and correct these, but some could still be present. Please do not hesitate to contact practitioner for clarification. 05/08/2024 Nutritional counseling (ICD-10 - Z71.3) 10/03/22: Weight 211, BMI 31.16- educated extensively on lifestyle modifications including high-protein, low carbohydrate, healthy fat, exercise, water intake, sleep hygiene, and stress relief. Patient will work on life so modifications of the next four weeks. Interested in weight loss medications. Start with Topamax 25 mg. Patient educated cannot drink alcohol on this medication. Most recent labs reviewed showing hyperlipidemia, without any insulin/diabetes concern. Patient educated on fish oil, diet, exercise. At next visit, will obtain EKG, and start phentermine 15 mg if EKG without concern. No concern for at this time. 10/31/22: weight 212, BMI 31.3- educated on lifestyle modifications. Patient went to [place], and then went to [place] and states that she has been traveling a lot and drinking more than usual. She is ready to get back on track. She has been walking more recently and focusing on portion control as well as eating earlier in the evening. She does feel some appetite suppression on metformin but is interested in starting an additional medication. She did not tolerate Topamax well. EKG's office today within normal limits. Will start phentermine 15 mg. Patient educated on side effects as well as proper use. Will follow-up in four weeks, sooner as needed.Encouraged to increase water intake. 12/05/22: weight 211.5, BMI 31.23- educated extensive and lifestyle modifications. Patient was congratulated on efforts. Taking phentermine 15 mg with compliance, without any side effects. Interested in increasing dose of 30 mg. If patient continues to have minimal weight loss, could consider GLP-1 injection such as Wegovy next visit, as at that time, patient will have three consecutive months of trying to lose weight. Patient understanding and aware of this plan. Educated to increase more formal exercise. 01/09/2023: Weight 207.3, BMI 30.61-patient congratulated on efforts, has been losing some weight. Taking phentermine 30 mg with compliance, without any side effects. Is noticing more appetite suppression on 30 mg then 15. Interested in increasing dose to 37.5. We did have a discussion about possibly switching to GLP-1 such as Wegovy, but having difficulty with supply at this time therefore we will continue phentermine 37.5 at this time. Did talk about compounded semaglutide as well, but patient states she will find it difficult to come to the office once weekly. Will increase to phentermine 37.5, and add Topamax. Patient also does admit to occasional headaches and history of migraines and this could benefit that as well. Educated on proper use, as well as side effects. 02/08/2023: Weight 205, BMI 30.27. Patient congratulated on effort. Taking phentermine 37.5, and Topamax. Noticing some appetite suppression but not significant effect. Interested in tapering off, and starting a different medication such as GLP-1 injection. Patient aware of the national shortage difficulty, but is interested in Saxenda. Did discuss proper use, and side effects of medication. We will taper phentermine, and start Saxenda. 03/12/2023: Weight 207.1, BMI 30.58. Patient expresses frustration given her current circumstances. She has not been able to obtain Saxenda from the pharmacy despite insurance approval. Currently taking phentermine 15 mg with no effect despite maintaining lifestyle modifications. Goals reevaluated and discussed incorporating increased intensity exercise in addition to walking as tolerated. Contacted [facility] pharmacy in [place] who states they cannot dispense Saxenda secondary to supply issues. Called [facility] specialty pharmacy, and Saxenda continues to be on backorder until unknown date. Will send to other [facility] pharmacy in [place], but patient will continue to call pharmacies to see who has availability, and happy to send to pharmacy when she can find one. She is understanding and aware. 04/12/2023: Weight 209 pounds, BMI 30.86. Patient did gain weight, but upon review of body composition scan she did gain 3 pounds of muscle, and lost 1 pound of fat. She was congratulated. Has been working hard with exercise and focusing on portion control but she states that she is going in the opposite direction because she is off of phentermine. Is interested in weight loss medications, tried sending Saxenda but was unable to obtain due to supply concern. We will start compounded semaglutide 0.25 mg today, and follow-up in 4 weeks. Also sending for Wegovy 0.5 mg and she is going to call the pharmacy to see if she can find although she is aware of the national shortage. 07/24/2023: Weight 199.6, BMI 29.47. Patient is welcome back to the practice, has not followed up since April due to insurance concerns, but is now following with us today. Patient was doing really well on semaglutide, but feels like she is now plateauing. Taking 0.5 mg, but interested in increasing to 1 mg. Will provide semaglutide 1 mg today, and submit for Wegovy 1 mg.Encouraged to continue with lifestyle modifications. 12/24/2023: Weight 204.1, BMI 30.14. Patient has gained since visit,, trying to get back on track. Was taking Wegovy 1 mg doing well, has been off for 6 weeks, so we will try to get her back on 1 mg and if not we will increase her to Wegovy 1.7 mg. Educated on proper use, side effects, long-term risk. 03/05/2024: Weight 203, BMI 30. Taking Wegovy 1.7 mg, will continue for another 4 weeks, and then consider increasing to 2.4 mg. If still at a plateau, consider switching over to Zepbound. Implementing more resistance training, and higher protein. Body scan reviewed today 04/02/2024: Weight 199, BMI 29: Patient congratulated on effort, continuing to lose slow, steady weight. Continue with Wegovy 1.7 mg. Encouraged to increase more resistance training, protein, and water intake. Follow-up in 4 weeks, could consider increasing Wegovy to 2.4 mg, or continuing with dose. 05/08/2024: Weight 198, BMI 29.25. Patient continuing to walk. Exercise otherwise limited due to right shoulder pain for which she is following with a chiropractor. Continue Wegovy but increase to 2.4 mg. If no improvement, consider switching over to Zepbound. Following up for physical in 1 month. #Patient also has some concerns regarding thinning of hair. Thyroid within normal limits. States that it is her also in her family. Did discuss possible dermatology referral, or PRP injections through our [facility]. # Migraines: X 3 months. Adequate nutrition/hydration. Stopped control 3 months ago at that time. When she was 16 she was put on control due to migraines. Following with her [employer] to potentially try getting back on it again. Ibuprofen as needed, no red flag symptoms. If symptoms persist, could consider abortive migraine management/imaging. #Patient taken Lexapro. No concerns at this time. # Hyperlipidemia: Labs from 08/26/2022 showing total cholesterol 294, triglycerides 323, LDL 169. Lipid panel from 12/25/2023 showing no improvement in cholesterol around 290, but improvement in triglycerides at 185, LDL 177.Based on cholesterol being 290, and cardiovascular risk factors will start rosuvastatin 10 mg, follow-up in the next 4 to 6 months for lipid panel and considering tapering down medication to 5 mg as patient does not want to be on this for long-term. We discussed lifestyle factors, she is eating a lot of shrimp, and red meat. Discussed fish, fish oil, [place], healthy fats. Patient to follow-up for complete physical in June, sooner as needed. Weight management in 4 weeks. Time spent with patient 30 minutes with greater than 50% of patient occasion and care coordination. All quetsions answered to patients satisfaction. Patient verbalized understanding of diagnosis and treatments explained. To call sooner prior to next visit it any questions/concerns arise. Case discussed with collaborating physician Riley Quintero who reviewed the assessment and plan. Chart, medications, labs, vital signs reviewed. Dictation was accomplished with the use of [employer] voice recognition software, prone to medical misidentifications and grammatical errors. This is unintentional and the practitioner does try to identify and correct these, but some could still be present. Please do not hesitate to contact practitioner for clarification. 06/10/2024 Nutritional counseling (ICD-10 - Z71.3) Glenis is a pleasant 43-year-old female presents the office for complete physical exam. Patient is up-to-date on all routine screenings, just had a mammogram this year, Pap smear this year. Follows with [employer] for both of those things. Declines flu and COVID vaccines, up-to-date on tetanus. Healthcare proxy is her boyfriend Cristino, and her mom Yeimi, which was filled out on 06/10/2024. PHQ-9 with a total score of 5, no concern regarding mental health at this time. 10/03/22: Weight 211, BMI 31.16- educated extensively on lifestyle modifications including high-protein, low carbohydrate, healthy fat, exercise, water intake, sleep hygiene, and stress relief. Patient will work on life so modifications of the next four weeks. Interested in weight loss medications. Start with Topamax 25 mg. Patient educated cannot drink alcohol on this medication. Most recent labs reviewed showing hyperlipidemia, without any insulin/diabetes concern. Patient educated on fish oil, diet, exercise. At next visit, will obtain EKG, and start phentermine 15 mg if EKG without concern. No concern for at this time. 10/31/22: weight 212, BMI 31.3- educated on lifestyle modifications. Patient went to [place], and then went to [place] and states that she has been traveling a lot and drinking more than usual. She is ready to get back on track. She has been walking more recently and focusing on portion control as well as eating earlier in the evening. She does feel some appetite suppression on metformin but is interested in starting an additional medication. She did not tolerate Topamax well. EKG's office today within normal limits. Will start phentermine 15 mg. Patient educated on side effects as well as proper use. Will follow-up in four weeks, sooner as needed.Encouraged to increase water intake. 12/05/22: weight 211.5, BMI 31.23- educated extensive and lifestyle modifications. Patient was congratulated on efforts. Taking phentermine 15 mg with compliance, without any side effects. Interested in increasing dose of 30 mg. If patient continues to have minimal weight loss, could consider GLP-1 injection such as Wegovy next visit, as at that time, patient will have three consecutive months of trying to lose weight. Patient understanding and aware of this plan. Educated to increase more formal exercise. 01/09/2023: Weight 207.3, BMI 30.61-patient congratulated on efforts, has been losing some weight. Taking phentermine 30 mg with compliance, without any side effects. Is noticing more appetite suppression on 30 mg then 15. Interested in increasing dose to 37.5. We did have a discussion about possibly switching to GLP-1 such as Wegovy, but having difficulty with supply at this time therefore we will continue phentermine 37.5 at this time. Did talk about compounded semaglutide as well, but patient states she will find it difficult to come to the office once weekly. Will increase to phentermine 37.5, and add Topamax. Patient also does admit to occasional headaches and history of migraines and this could benefit that as well. Educated on proper use, as well as side effects. 02/08/2023: Weight 205, BMI 30.27. Patient congratulated on effort. Taking phentermine 37.5, and Topamax. Noticing some appetite suppression but not significant effect. Interested in tapering off, and starting a different medication such as GLP-1 injection. Patient aware of the national shortage difficulty, but is interested in Saxenda. Did discuss proper use, and side effects of medication. We will taper phentermine, and start Saxenda. 03/12/2023: Weight 207.1, BMI 30.58. Patient expresses frustration given her current circumstances. She has not been able to obtain Saxenda from the pharmacy despite insurance approval. Currently taking phentermine 15 mg with no effect despite maintaining lifestyle modifications. Goals reevaluated and discussed incorporating increased intensity exercise in addition to walking as tolerated. Contacted [facility] pharmacy in [place] who states they cannot dispense Saxenda secondary to supply issues. Called [facility] specialty pharmacy, and Saxenda continues to be on backorder until unknown date. Will send to other [facility] pharmacy in [place], but patient will continue to call pharmacies to see who has availability, and happy to send to pharmacy when she can find one. She is understanding and aware. 04/12/2023: Weight 209 pounds, BMI 30.86. Patient did gain weight, but upon review of body composition scan she did gain 3 pounds of muscle, and lost 1 pound of fat. She was congratulated. Has been working hard with exercise and focusing on portion control but she states that she is going in the opposite direction because she is off of phentermine. Is interested in weight loss medications, tried sending Saxenda but was unable to obtain due to supply concern. We will start compounded semaglutide 0.25 mg today, and follow-up in 4 weeks. Also sending for Wegovy 0.5 mg and she is going to call the pharmacy to see if she can find although she is aware of the national shortage. 07/24/2023: Weight 199.6, BMI 29.47. Patient is welcome back to the practice, has not followed up since April due to insurance concerns, but is now following with us today. Patient was doing really well on semaglutide, but feels like she is now plateauing. Taking 0.5 mg, but interested in increasing to 1 mg. Will provide semaglutide 1 mg today, and submit for Wegovy 1 mg.Encouraged to continue with lifestyle modifications. 12/24/2023: Weight 204.1, BMI 30.14. Patient has gained since visit,, trying to get back on track. Was taking Wegovy 1 mg doing well, has been off for 6 weeks, so we will try to get her back on 1 mg and if not we will increase her to Wegovy 1.7 mg. Educated on proper use, side effects, long-term risk. 03/05/2024: Weight 203, BMI 30. Taking Wegovy 1.7 mg, will continue for another 4 weeks, and then consider increasing to 2.4 mg. If still at a plateau, consider switching over to Zepbound. Implementing more resistance training, and higher protein. Body scan reviewed today 04/02/2024: Weight 199, BMI 29: Patient congratulated on effort, continuing to lose slow, steady weight. Continue with Wegovy 1.7 mg. Encouraged to increase more resistance training, protein, and water intake. Follow-up in 4 weeks, could consider increasing Wegovy to 2.4 mg, or continuing with dose. 05/08/2024: Weight 198, BMI 29.25. Patient continuing to walk. Exercise otherwise limited due to right shoulder pain for which she is following with a chiropractor. Continue Wegovy but increase to 2.4 mg. If no improvement, consider switching over to Zepbound. Following up for physical in 1 month. 06/10/2024: Weight 201, BMI 29.74. Patient sought a plateau, will discontinue Wegovy, switch to Zepbound 2.5 mg. Discussed proper use, side effects. Follow-up in 4 to 6 weeks. #Patient also has some concerns regarding thinning of hair. Thyroid within normal limits. States that it is her also in her family. Did discuss possible dermatology referral, or PRP injections through our [facility]. # Migraines: X 3 months. Adequate nutrition/hydration. Ibuprofen as needed, no red flag symptoms. Separate control, migraines have been worse since then. She is not interested in getting back on control. Symptoms persisting, so trial sumatriptan 25 mg, repeating dose after 2 hours if symptoms persist. Discussed proper use, side effects. If no improvement could consider alternative abortive/preventativ e therapies or imaging. #Patient taken Lexapro. No concerns at this time. # Hyperlipidemia: Labs from 08/26/2022 showing total cholesterol 294, triglycerides 323, LDL 169. Lipid panel from 12/25/2023 showing no improvement in cholesterol around 290, but improvement in triglycerides at 185, LDL 177.Based on cholesterol being 290, and cardiovascular risk factors will start rosuvastatin 10 mg, Due for repeat lipid panel to assess efficacy/compliance of medication. Will order today. We discussed lifestyle factors, she is eating a lot of shrimp, and red meat. Discussed fish, fish oil, [place], healthy fats. # Right shoulder pain: X 6 months, followed with a chiropractor and massage therapist without significant improvement. Will start with x-rays. Most likely will need physical therapy, Ortho referral, or further imaging. Discussed conservative treatments. Follow-up in 4 to 6 weeks for weight management. In the meantime x-ray of the right shoulder, and blood work. Will also assess efficacy/compliance of sumatriptan. Patient seen and examined. Comprehensive discussion was done on the following. 1. Nutrition: It is important to follow a healthy diet based on lots of vegetables and legumes and good fat. Avoid processed food and processed carbohydrates. Prepare your own meals. Read labels and avoid high fructose corn syrup, processed chemicals added to increase shelf life and preprepared meals. Avoid fast foods. Eat slowly and plan meals for a week. Try to count calories and be mindful off daily calorie intake. Get into the habit of keeping an eye on your weight by using an appropriate scale. Learn to log exercise and discussed fitness Apps like [employer] which can help keep log off calories taken versus calories burned. Local food should be preferred. Discussed Dirty Dozen Versus Clean Fifteen. Discussed healthy supplements like fish oil, Tumeric, Curcumin, Melatonin, Resveratrol, Probiotics, Vitamin-D, Alpha-Lipoic acid, Vitamin-D and coconut oil. 2. It is important to exercise regularly. Is a good habit to walk at least 30 minutes a day. Gentle weightlifting with standard precautions to protect the back. Finding activity like cycling or hiking and get into the habit of engaging in it. Stretching before and after the exercises important. It is also important to contact me if there are any problems like shortness of breath, chest pain, back pain and joint or muscle pain associated with the exercise. 3. Discussed age appropriate screening guidelines. Colonoscopy needs to start at age 50 with stool for occult blood as appropriate. There is a new test that can test for genetic abnormalities in the stool sample, Cologuard. This would not replace a colonoscopy but could be used as a screening tool for patients who do not want a colonoscopy. We discussed the importance of early detection of colon cancer. 4. Discussed current guidelines with respect to breast examination, mammogram and pap smear for early detection of breast and cervical cancer. Patient advised to follow up with these appointments. 5. Discussed safe driving and no use of smart phone while driving 6. Age-appropriate immunizations were discussed. A tetanus booster is needed every 10 years. Flu vaccine is recommended every year just before the start of the flu season. Shingles vaccine is recommended after age 50 but not all insurances cover it. Pneumonia vaccine is given after age 65 unless there are certain comorbidities for which it is started earlier. 7. Diagnostic labs were discussed. These could include/not limited to CBC CMP and lipids with fasting blood glucose and insulin levels. Vitamin D and hemoglobin A1c testing might be appropriate. All quetsions answered to patients satisfaction. Patient verbalized understanding of diagnosis and treatments explained. To call sooner prior to next visit it any questions/concerns arise. Case discussed with collaborating physician Riley Quintero who reviewed the assessment and plan. Chart, medications, labs, vital signs reviewed. Dictation was accomplished with the use of [employer] voice recognition software, prone to medical misidentifications and grammatical errors. This is unintentional and the practitioner does try to identify and correct these, but some could still be present. Please do not hesitate to contact practitioner for clarification. 07/28/2024 Pain, joint, shoulder, right (ICD-10 - M25.511) 10/03/22: Weight 211, BMI 31.16- educated extensively on lifestyle modifications including high-protein, low carbohydrate, healthy fat, exercise, water intake, sleep hygiene, and stress relief. Patient will work on life so modifications of the next four weeks. Interested in weight loss medications. Start with Topamax 25 mg. Patient educated cannot drink alcohol on this medication. Most recent labs reviewed showing hyperlipidemia, without any insulin/diabetes concern. Patient educated on fish oil, diet, exercise. At next visit, will obtain EKG, and start phentermine 15 mg if EKG without concern. No concern for at this time. 10/31/22: weight 212, BMI 31.3- educated on lifestyle modifications. Patient went to [place], and then went to [place] and states that she has been traveling a lot and drinking more than usual. She is ready to get back on track. She has been walking more recently and focusing on portion control as well as eating earlier in the evening. She does feel some appetite suppression on metformin but is interested in starting an additional medication. She did not tolerate Topamax well. EKG's office today within normal limits. Will start phentermine 15 mg. Patient educated on side effects as well as proper use. Will follow-up in four weeks, sooner as needed.Encouraged to increase water intake. 12/05/22: weight 211.5, BMI 31.23- educated extensive and lifestyle modifications. Patient was congratulated on efforts. Taking phentermine 15 mg with compliance, without any side effects. Interested in increasing dose of 30 mg. If patient continues to have minimal weight loss, could consider GLP-1 injection such as Wegovy next visit, as at that time, patient will have three consecutive months of trying to lose weight. Patient understanding and aware of this plan. Educated to increase more formal exercise. 01/09/2023: Weight 207.3, BMI 30.61-patient congratulated on efforts, has been losing some weight. Taking phentermine 30 mg with compliance, without any side effects. Is noticing more appetite suppression on 30 mg then 15. Interested in increasing dose to 37.5. We did have a discussion about possibly switching to GLP-1 such as Wegovy, but having difficulty with supply at this time therefore we will continue phentermine 37.5 at this time. Did talk about compounded semaglutide as well, but patient states she will find it difficult to come to the office once weekly. Will increase to phentermine 37.5, and add Topamax. Patient also does admit to occasional headaches and history of migraines and this could benefit that as well. Educated on proper use, as well as side effects. 02/08/2023: Weight 205, BMI 30.27. Patient congratulated on effort. Taking phentermine 37.5, and Topamax. Noticing some appetite suppression but not significant effect. Interested in tapering off, and starting a different medication such as GLP-1 injection. Patient aware of the national shortage difficulty, but is interested in Saxenda. Did discuss proper use, and side effects of medication. We will taper phentermine, and start Saxenda. 03/12/2023: Weight 207.1, BMI 30.58. Patient expresses frustration given her current circumstances. She has not been able to obtain Saxenda from the pharmacy despite insurance approval. Currently taking phentermine 15 mg with no effect despite maintaining lifestyle modifications. Goals reevaluated and discussed incorporating increased intensity exercise in addition to walking as tolerated. Contacted [facility] pharmacy in [place] who states they cannot dispense Saxenda secondary to supply issues. Called [facility] specialty pharmacy, and Saxenda continues to be on backorder until unknown date. Will send to other [facility] pharmacy in [place], but patient will continue to call pharmacies to see who has availability, and happy to send to pharmacy when she can find one. She is understanding and aware. 04/12/2023: Weight 209 pounds, BMI 30.86. Patient did gain weight, but upon review of body composition scan she did gain 3 pounds of muscle, and lost 1 pound of fat. She was congratulated. Has been working hard with exercise and focusing on portion control but she states that she is going in the opposite direction because she is off of phentermine. Is interested in weight loss medications, tried sending Saxenda but was unable to obtain due to supply concern. We will start compounded semaglutide 0.25 mg today, and follow-up in 4 weeks. Also sending for Wegovy 0.5 mg and she is going to call the pharmacy to see if she can find although she is aware of the national shortage. 07/24/2023: Weight 199.6, BMI 29.47. Patient is welcome back to the practice, has not followed up since April due to insurance concerns, but is now following with us today. Patient was doing really well on semaglutide, but feels like she is now plateauing. Taking 0.5 mg, but interested in increasing to 1 mg. Will provide semaglutide 1 mg today, and submit for Wegovy 1 mg.Encouraged to continue with lifestyle modifications. 12/24/2023: Weight 204.1, BMI 30.14. Patient has gained since visit,, trying to get back on track. Was taking Wegovy 1 mg doing well, has been off for 6 weeks, so we will try to get her back on 1 mg and if not we will increase her to Wegovy 1.7 mg. Educated on proper use, side effects, long-term risk. 03/05/2024: Weight 203, BMI 30. Taking Wegovy 1.7 mg, will continue for another 4 weeks, and then consider increasing to 2.4 mg. If still at a plateau, consider switching over to Zepbound. Implementing more resistance training, and higher protein. Body scan reviewed today 04/02/2024: Weight 199, BMI 29: Patient congratulated on effort, continuing to lose slow, steady weight. Continue with Wegovy 1.7 mg. Encouraged to increase more resistance training, protein, and water intake. Follow-up in 4 weeks, could consider increasing Wegovy to 2.4 mg, or continuing with dose. 05/08/2024: Weight 198, BMI 29.25. Patient continuing to walk. Exercise otherwise limited due to right shoulder pain for which she is following with a chiropractor. Continue Wegovy but increase to 2.4 mg. If no improvement, consider switching over to Zepbound. Following up for physical in 1 month. 06/10/2024: Weight 201, BMI 29.74. Patient sought a plateau, will discontinue Wegovy, switch to Zepbound 2.5 mg. Discussed proper use, side effects. Follow-up in 4 to 6 weeks. 07/28/2024: Weight 198, BMI 29. Weight plateaued since last visit. Switched over to Zepbound 2.5 mg, increased to 5 mg. Her grandmother just passed, so she has been planning arrangements and exercises been off. 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 #Patient also has some concerns regarding thinning of hair. Thyroid within normal limits. States that it is her also in her family. Did discuss possible dermatology referral, or PRP injections through our [facility]. # Migraines: X 3 months. Adequate nutrition/hydration. Ibuprofen as needed, no red flag symptoms. Separate control, migraines have been worse since then. She is not interested in getting back on control. Symptoms persisting, so trial sumatriptan 25 mg, repeating dose after 2 hours if symptoms persist. Discussed proper use, side effects. If no improvement could consider alternative abortive/preventativ e therapies or imaging. #Patient taken Lexapro. No concerns at this time. # Hyperlipidemia: Labs from 08/26/2022 showing total cholesterol 294, triglycerides 323, LDL 169. Lipid panel from 12/25/2023 showing no improvement in cholesterol around 290, but improvement in triglycerides at 185, LDL 177.Based on cholesterol being 290, and cardiovascular risk factors will start rosuvastatin 10 mg, Due for repeat lipid panel to assess efficacy/compliance of medication. Will order today. We discussed lifestyle factors, she is eating a lot of shrimp, and red meat. Discussed fish, fish oil, [place], healthy fats. # Right shoulder pain: X 6 months, followed with a chiropractor and massage therapist without significant improvement. Will start with x-rays. Most likely will need physical therapy, Ortho referral, or further imaging. Discussed conservative treatments.Patient is updated x-ray images of order. This with patient 30 minutes with greater than 50% patient education and coordination. Work prior to next visit. Follow-up in 6 weeks, sooner as needed All quetsions answered to patients satisfaction. Patient verbalized understanding of diagnosis and treatments explained. To call sooner prior to next visit it any questions/concerns arise. Case discussed with collaborating physician Riley Quintero who reviewed the assessment and plan. Chart, medications, labs, vital signs reviewed. Dictation was accomplished with the use of [employer] voice recognition software, prone to medical misidentifications and grammatical errors. This is unintentional and the practitioner does try to identify and correct these, but some could still be present. Please do not hesitate to contact practitioner for clarification. 09/10/2024 Episodic migraine (ICD-10 - G43.909) 10/03/22: Weight 211, BMI 31.16- educated extensively on lifestyle modifications including high-protein, low carbohydrate, healthy fat, exercise, water intake, sleep hygiene, and stress relief. Patient will work on life so modifications of the next four weeks. Interested in weight loss medications. Start with Topamax 25 mg. Patient educated cannot drink alcohol on this medication. Most recent labs reviewed showing hyperlipidemia, without any insulin/diabetes concern. Patient educated on fish oil, diet, exercise. At next visit, will obtain EKG, and start phentermine 15 mg if EKG without concern. No concern for at this time. 10/31/22: weight 212, BMI 31.3- educated on lifestyle modifications. Patient went to [place], and then went to [place] and states that she has been traveling a lot and drinking more than usual. She is ready to get back on track. She has been walking more recently and focusing on portion control as well as eating earlier in the evening. She does feel some appetite suppression on metformin but is interested in starting an additional medication. She did not tolerate Topamax well. EKG's office today within normal limits. Will start phentermine 15 mg. Patient educated on side effects as well as proper use. Will follow-up in four weeks, sooner as needed.Encouraged to increase water intake. 12/05/22: weight 211.5, BMI 31.23- educated extensive and lifestyle modifications. Patient was congratulated on efforts. Taking phentermine 15 mg with compliance, without any side effects. Interested in increasing dose of 30 mg. If patient continues to have minimal weight loss, could consider GLP-1 injection such as Wegovy next visit, as at that time, patient will have three consecutive months of trying to lose weight. Patient understanding and aware of this plan. Educated to increase more formal exercise. 01/09/2023: Weight 207.3, BMI 30.61-patient congratulated on efforts, has been losing some weight. Taking phentermine 30 mg with compliance, without any side effects. Is noticing more appetite suppression on 30 mg then 15. Interested in increasing dose to 37.5. We did have a discussion about possibly switching to GLP-1 such as Wegovy, but having difficulty with supply at this time therefore we will continue phentermine 37.5 at this time. Did talk about compounded semaglutide as well, but patient states she will find it difficult to come to the office once weekly. Will increase to phentermine 37.5, and add Topamax. Patient also does admit to occasional headaches and history of migraines and this could benefit that as well. Educated on proper use, as well as side effects. 02/08/2023: Weight 205, BMI 30.27. Patient congratulated on effort. Taking phentermine 37.5, and Topamax. Noticing some appetite suppression but not significant effect. Interested in tapering off, and starting a different medication such as GLP-1 injection. Patient aware of the national shortage difficulty, but is interested in Saxenda. Did discuss proper use, and side effects of medication. We will taper phentermine, and start Saxenda. 03/12/2023: Weight 207.1, BMI 30.58. Patient expresses frustration given her current circumstances. She has not been able to obtain Saxenda from the pharmacy despite insurance approval. Currently taking phentermine 15 mg with no effect despite maintaining lifestyle modifications. Goals reevaluated and discussed incorporating increased intensity exercise in addition to walking as tolerated. Contacted [facility] pharmacy in [place] who states they cannot dispense Saxenda secondary to supply issues. Called [facility] specialty pharmacy, and Saxenda continues to be on backorder until unknown date. Will send to other [facility] pharmacy in [place], but patient will continue to call pharmacies to see who has availability, and happy to send to pharmacy when she can find one. She is understanding and aware. 04/12/2023: Weight 209 pounds, BMI 30.86. Patient did gain weight, but upon review of body composition scan she did gain 3 pounds of muscle, and lost 1 pound of fat. She was congratulated. Has been working hard with exercise and focusing on portion control but she states that she is going in the opposite direction because she is off of phentermine. Is interested in weight loss medications, tried sending Saxenda but was unable to obtain due to supply concern. We will start compounded semaglutide 0.25 mg today, and follow-up in 4 weeks. Also sending for Wegovy 0.5 mg and she is going to call the pharmacy to see if she can find although she is aware of the national shortage. 07/24/2023: Weight 199.6, BMI 29.47. Patient is welcome back to the practice, has not followed up since April due to insurance concerns, but is now following with us today. Patient was doing really well on semaglutide, but feels like she is now plateauing. Taking 0.5 mg, but interested in increasing to 1 mg. Will provide semaglutide 1 mg today, and submit for Wegovy 1 mg.Encouraged to continue with lifestyle modifications. 12/24/2023: Weight 204.1, BMI 30.14. Patient has gained since visit,, trying to get back on track. Was taking Wegovy 1 mg doing well, has been off for 6 weeks, so we will try to get her back on 1 mg and if not we will increase her to Wegovy 1.7 mg. Educated on proper use, side effects, long-term risk. 03/05/2024: Weight 203, BMI 30. Taking Wegovy 1.7 mg, will continue for another 4 weeks, and then consider increasing to 2.4 mg. If still at a plateau, consider switching over to Zepbound. Implementing more resistance training, and higher protein. Body scan reviewed today 04/02/2024: Weight 199, BMI 29: Patient congratulated on effort, continuing to lose slow, steady weight. Continue with Wegovy 1.7 mg. Encouraged to increase more resistance training, protein, and water intake. Follow-up in 4 weeks, could consider increasing Wegovy to 2.4 mg, or continuing with dose. 05/08/2024: Weight 198, BMI 29.25. Patient continuing to walk. Exercise otherwise limited due to right shoulder pain for which she is following with a chiropractor. Continue Wegovy but increase to 2.4 mg. If no improvement, consider switching over to Zepbound. Following up for physical in 1 month. 06/10/2024: Weight 201, BMI 29.74. Patient sought a plateau, will discontinue Wegovy, switch to Zepbound 2.5 mg. Discussed proper use, side effects. Follow-up in 4 to 6 weeks. 07/28/2024: Weight 198, BMI 29. Weight plateaued since last visit. Switched over to Zepbound 2.5 mg, increased to 5 mg. Her grandmother just passed, so she has been planning arrangements and exercises been off. 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 09/10/2024: Weight 197, BMI 29. Discontinuing Zepbound 2 weeks ago secondary to significant hair loss. Will hold off on all weight loss medications and follow-up in 4 weeks. Will obtain blood work prior # Hair loss: Ordering CBC, iron, TIBC, ferritin, ABHAY, CRP, estrogen, progesterone, testosterone, DHEA, TSH, T3, T4, vitamin D, and vitamin B12.Patient taking NutrAFUL. Consider dermatology referral. # Migraines: Adequate nutrition/hydration. Ibuprofen as needed, no red flag symptoms. Separate control, migraines have been worse since then. She is not interested in getting back on control. Taking sumatriptan as needed. If no improvement could consider alternative abortive/preventativ e therapies or imaging. #Patient taken Lexapro. No concerns at this time. # Hyperlipidemia: Labs from 08/26/2022 showing total cholesterol 294, triglycerides 323, LDL 169. Lipid panel from 12/25/2023 showing no improvement in cholesterol around 290, but improvement in triglycerides at 185, LDL 177.Based on cholesterol being 290, and cardiovascular risk factors Rosuvastatin 10 mg initiated. Repeating lipid panel. # Right shoulder pain: X 6 months, followed with a chiropractor and massage therapist without significant improvement.Ordered x-rays, although patient did not obtain. Follow-up in 4 weeks, lab in the meantime. All quetsions answered to patients satisfaction. Patient verbalized understanding of diagnosis and treatments explained. To call sooner prior to next visit it any questions/concerns arise. Case discussed with collaborating physician Riley Quintero who reviewed the assessment and plan. Chart, medications, labs, vital signs reviewed. Dictation was accomplished with the use of [employer] voice recognition software, prone to medical misidentifications and grammatical errors. This is unintentional and the practitioner does try to identify and correct these, but some could still be present. Please do not hesitate to contact practitioner for clarification. 11/17/2024 Hair loss (ICD-10 - L65.9) 10/03/22: Weight 211, BMI 31.16- educated extensively on lifestyle modifications including high-protein, low carbohydrate, healthy fat, exercise, water intake, sleep hygiene, and stress relief. Patient will work on life so modifications of the next four weeks. Interested in weight loss medications. Start with Topamax 25 mg. Patient educated cannot drink alcohol on this medication. Most recent labs reviewed showing hyperlipidemia, without any insulin/diabetes concern. Patient educated on fish oil, diet, exercise. At next visit, will obtain EKG, and start phentermine 15 mg if EKG without concern. No concern for at this time. 10/31/22: weight 212, BMI 31.3- educated on lifestyle modifications. Patient went to [place], and then went to [place] and states that she has been traveling a lot and drinking more than usual. She is ready to get back on track. She has been walking more recently and focusing on portion control as well as eating earlier in the evening. She does feel some appetite suppression on metformin but is interested in starting an additional medication. She did not tolerate Topamax well. EKG's office today within normal limits. Will start phentermine 15 mg. Patient educated on side effects as well as proper use. Will follow-up in four weeks, sooner as needed.Encouraged to increase water intake. 12/05/22: weight 211.5, BMI 31.23- educated extensive and lifestyle modifications. Patient was congratulated on efforts. Taking phentermine 15 mg with compliance, without any side effects. Interested in increasing dose of 30 mg. If patient continues to have minimal weight loss, could consider GLP-1 injection such as Wegovy next visit, as at that time, patient will have three consecutive months of trying to lose weight. Patient understanding and aware of this plan. Educated to increase more formal exercise. 01/09/2023: Weight 207.3, BMI 30.61-patient congratulated on efforts, has been losing some weight. Taking phentermine 30 mg with compliance, without any side effects. Is noticing more appetite suppression on 30 mg then 15. Interested in increasing dose to 37.5. We did have a discussion about possibly switching to GLP-1 such as Wegovy, but having difficulty with supply at this time therefore we will continue phentermine 37.5 at this time. Did talk about compounded semaglutide as well, but patient states she will find it difficult to come to the office once weekly. Will increase to phentermine 37.5, and add Topamax. Patient also does admit to occasional headaches and history of migraines and this could benefit that as well. Educated on proper use, as well as side effects. 02/08/2023: Weight 205, BMI 30.27. Patient congratulated on effort. Taking phentermine 37.5, and Topamax. Noticing some appetite suppression but not significant effect. Interested in tapering off, and starting a different medication such as GLP-1 injection. Patient aware of the national shortage difficulty, but is interested in Saxenda. Did discuss proper use, and side effects of medication. We will taper phentermine, and start Saxenda. 03/12/2023: Weight 207.1, BMI 30.58. Patient expresses frustration given her current circumstances. She has not been able to obtain Saxenda from the pharmacy despite insurance approval. Currently taking phentermine 15 mg with no effect despite maintaining lifestyle modifications. Goals reevaluated and discussed incorporating increased intensity exercise in addition to walking as tolerated. Contacted [facility] pharmacy in [place] who states they cannot dispense Saxenda secondary to supply issues. Called [facility] specialty pharmacy, and Saxenda continues to be on backorder until unknown date. Will send to other [facility] pharmacy in [place], but patient will continue to call pharmacies to see who has availability, and happy to send to pharmacy when she can find one. She is understanding and aware. 04/12/2023: Weight 209 pounds, BMI 30.86. Patient did gain weight, but upon review of body composition scan she did gain 3 pounds of muscle, and lost 1 pound of fat. She was congratulated. Has been working hard with exercise and focusing on portion control but she states that she is going in the opposite direction because she is off of phentermine. Is interested in weight loss medications, tried sending Saxenda but was unable to obtain due to supply concern. We will start compounded semaglutide 0.25 mg today, and follow-up in 4 weeks. Also sending for Wegovy 0.5 mg and she is going to call the pharmacy to see if she can find although she is aware of the national shortage. 07/24/2023: Weight 199.6, BMI 29.47. Patient is welcome back to the practice, has not followed up since April due to insurance concerns, but is now following with us today. Patient was doing really well on semaglutide, but feels like she is now plateauing. Taking 0.5 mg, but interested in increasing to 1 mg. Will provide semaglutide 1 mg today, and submit for Wegovy 1 mg.Encouraged to continue with lifestyle modifications. 12/24/2023: Weight 204.1, BMI 30.14. Patient has gained since visit,, trying to get back on track. Was taking Wegovy 1 mg doing well, has been off for 6 weeks, so we will try to get her back on 1 mg and if not we will increase her to Wegovy 1.7 mg. Educated on proper use, side effects, long-term risk. 03/05/2024: Weight 203, BMI 30. Taking Wegovy 1.7 mg, will continue for another 4 weeks, and then consider increasing to 2.4 mg. If still at a plateau, consider switching over to Zepbound. Implementing more resistance training, and higher protein. Body scan reviewed today 04/02/2024: Weight 199, BMI 29: Patient congratulated on effort, continuing to lose slow, steady weight. Continue with Wegovy 1.7 mg. Encouraged to increase more resistance training, protein, and water intake. Follow-up in 4 weeks, could consider increasing Wegovy to 2.4 mg, or continuing with dose. 05/08/2024: Weight 198, BMI 29.25. Patient continuing to walk. Exercise otherwise limited due to right shoulder pain for which she is following with a chiropractor. Continue Wegovy but increase to 2.4 mg. If no improvement, consider switching over to Zepbound. Following up for physical in 1 month. 06/10/2024: Weight 201, BMI 29.74. Patient sought a plateau, will discontinue Wegovy, switch to Zepbound 2.5 mg. Discussed proper use, side effects. Follow-up in 4 to 6 weeks. 07/28/2024: Weight 198, BMI 29. Weight plateaued since last visit. Switched over to Zepbound 2.5 mg, increased to 5 mg. Her grandmother just passed, so she has been planning arrangements and exercises been off. 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 09/10/2024: Weight 197, BMI 29. Discontinuing Zepbound 2 weeks ago secondary to significant hair loss. Will hold off on all weight loss medications and follow-up in 4 weeks. Will obtain blood work prior 11/17/2024 weight 221, BMI 32. start contrave, discussed proper use and side effects, and contact office with any concerns. Discussed reinitiating wegovy in the future, will trial contrave first. Discussed referral for mounter flutes and piccolos, Patient declines at this time. Follow up in 4-6 weeks # Hair loss: CBC, iron, TIBC, ferritin, ABHAY, CRP, estrogen, progesterone, testosterone, DHEA, TSH, T3, T4, were WNL, vitamin D was low, pt reports that she is taking vitamin D supplementation, vitamin B12 was low, pt recieved Vitamin B12 in office.Patient taking NutrAFUL [facility] improvment. Consider dermatology referral. # Migraines: Adequate nutrition/hydration. Ibuprofen as needed, no red flag symptoms. Separate control, migraines have been worse since then. She is not interested in getting back on control. Taking sumatriptan as needed. If no improvement could consider alternative abortive/preventativ e therapies or imaging. #Patient taken Lexapro 5 mg, patient states that her depression has been worse secondary to weight gain, will add on Contrave # Hyperlipidemia: 08/26/2022 showing total cholesterol 294, triglycerides 323, LDL 169. Lipid panel from 12/25/2023 showing no improvement in cholesterol around 290, but improvement in triglycerides at 185, LDL 177.Based on cholesterol being 290, and cardiovascular risk factors Rosuvastatin 10 mg initiated. Lab from 09/15/2024 total cholesterol 240, LDL 151, HDL 64. Repeating lipid panel in 3-4 months. if cholesterol is still elevated consider increasing Rosuvastatin. # Left shoulder pain: followed with a chiropractor and massage therapist without significant improvement.Ordered x-rays, although patient did not obtain. Ordered MRI of the LT shoulder Without contrast, concerned for rotater cuff abnormality Based on physical examination. Follow-up in 4 weeks, or sooner if needed. All quetsions answered to patients satisfaction. Patient verbalized understanding of diagnosis and treatments explained. To call sooner prior to next visit it any questions/concerns arise. Case discussed with collaborating physician Riley Quintero who reviewed the assessment and plan. Chart, medications, labs, vital signs reviewed. Dictation was accomplished with the use of [employer] voice recognition software, prone to medical misidentifications and grammatical errors. This is unintentional and the practitioner does try to identify and correct these, but some could still be present. Please do not hesitate to contact practitioner for clarification. 03/04/2025 Mixed hyperlipidemia (ICD-10 - E78.2) 10/03/22: Weight 211, BMI 31.16- educated extensively on lifestyle modifications including high-protein, low carbohydrate, healthy fat, exercise, water intake, sleep hygiene, and stress relief. Patient will work on life so modifications of the next four weeks. Interested in weight loss medications. Start with Topamax 25 mg. Patient educated cannot drink alcohol on this medication. Most recent labs reviewed showing hyperlipidemia, without any insulin/diabetes concern. Patient educated on fish oil, diet, exercise. At next visit, will obtain EKG, and start phentermine 15 mg if EKG without concern. No concern for at this time. 10/31/22: weight 212, BMI 31.3- educated on lifestyle modifications. Patient went to [place], and then went to [place] and states that she has been traveling a lot and drinking more than usual. She is ready to get back on track. She has been walking more recently and focusing on portion control as well as eating earlier in the evening. She does feel some appetite suppression on metformin but is interested in starting an additional medication. She did not tolerate Topamax well. EKG's office today within normal limits. Will start phentermine 15 mg. Patient educated on side effects as well as proper use. Will follow-up in four weeks, sooner as needed.Encouraged to increase water intake. 12/05/22: weight 211.5, BMI 31.23- educated extensive and lifestyle modifications. Patient was congratulated on efforts. Taking phentermine 15 mg with compliance, without any side effects. Interested in increasing dose of 30 mg. If patient continues to have minimal weight loss, could consider GLP-1 injection such as Wegovy next visit, as at that time, patient will have three consecutive months of trying to lose weight. Patient understanding and aware of this plan. Educated to increase more formal exercise. 01/09/2023: Weight 207.3, BMI 30.61-patient congratulated on efforts, has been losing some weight. Taking phentermine 30 mg with compliance, without any side effects. Is noticing more appetite suppression on 30 mg then 15. Interested in increasing dose to 37.5. We did have a discussion about possibly switching to GLP-1 such as Wegovy, but having difficulty with supply at this time therefore we will continue phentermine 37.5 at this time. Did talk about compounded semaglutide as well, but patient states she will find it difficult to come to the office once weekly. Will increase to phentermine 37.5, and add Topamax. Patient also does admit to occasional headaches and history of migraines and this could benefit that as well. Educated on proper use, as well as side effects. 02/08/2023: Weight 205, BMI 30.27. Patient congratulated on effort. Taking phentermine 37.5, and Topamax. Noticing some appetite suppression but not significant effect. Interested in tapering off, and starting a different medication such as GLP-1 injection. Patient aware of the national shortage difficulty, but is interested in Saxenda. Did discuss proper use, and side effects of medication. We will taper phentermine, and start Saxenda. 03/12/2023: Weight 207.1, BMI 30.58. Patient expresses frustration given her current circumstances. She has not been able to obtain Saxenda from the pharmacy despite insurance approval. Currently taking phentermine 15 mg with no effect despite maintaining lifestyle modifications. Goals reevaluated and discussed incorporating increased intensity exercise in addition to walking as tolerated. Contacted [facility] pharmacy in [place] who states they cannot dispense Saxenda secondary to supply issues. Called [facility] specialty pharmacy, and Saxenda continues to be on backorder until unknown date. Will send to other [facility] pharmacy in [place], but patient will continue to call pharmacies to see who has availability, and happy to send to pharmacy when she can find one. She is understanding and aware. 04/12/2023: Weight 209 pounds, BMI 30.86. Patient did gain weight, but upon review of body composition scan she did gain 3 pounds of muscle, and lost 1 pound of fat. She was congratulated. Has been working hard with exercise and focusing on portion control but she states that she is going in the opposite direction because she is off of phentermine. Is interested in weight loss medications, tried sending Saxenda but was unable to obtain due to supply concern. We will start compounded semaglutide 0.25 mg today, and follow-up in 4 weeks. Also sending for Wegovy 0.5 mg and she is going to call the pharmacy to see if she can find although she is aware of the national shortage. 07/24/2023: Weight 199.6, BMI 29.47. Patient is welcome back to the practice, has not followed up since April due to insurance concerns, but is now following with us today. Patient was doing really well on semaglutide, but feels like she is now plateauing. Taking 0.5 mg, but interested in increasing to 1 mg. Will provide semaglutide 1 mg today, and submit for Wegovy 1 mg.Encouraged to continue with lifestyle modifications. 12/24/2023: Weight 204.1, BMI 30.14. Patient has gained since visit,, trying to get back on track. Was taking Wegovy 1 mg doing well, has been off for 6 weeks, so we will try to get her back on 1 mg and if not we will increase her to Wegovy 1.7 mg. Educated on proper use, side effects, long-term risk. 03/05/2024: Weight 203, BMI 30. Taking Wegovy 1.7 mg, will continue for another 4 weeks, and then consider increasing to 2.4 mg. If still at a plateau, consider switching over to Zepbound. Implementing more resistance training, and higher protein. Body scan reviewed today 04/02/2024: Weight 199, BMI 29: Patient congratulated on effort, continuing to lose slow, steady weight. Continue with Wegovy 1.7 mg. Encouraged to increase more resistance training, protein, and water intake. Follow-up in 4 weeks, could consider increasing Wegovy to 2.4 mg, or continuing with dose. 05/08/2024: Weight 198, BMI 29.25. Patient continuing to walk. Exercise otherwise limited due to right shoulder pain for which she is following with a chiropractor. Continue Wegovy but increase to 2.4 mg. If no improvement, consider switching over to Zepbound. Following up for physical in 1 month. 06/10/2024: Weight 201, BMI 29.74. Patient sought a plateau, will discontinue Wegovy, switch to Zepbound 2.5 mg. Discussed proper use, side effects. Follow-up in 4 to 6 weeks. 07/28/2024: Weight 198, BMI 29. Weight plateaued since last visit. Switched over to Zepbound 2.5 mg, increased to 5 mg. Her grandmother just passed, so she has been planning arrangements and exercises been off. 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 09/10/2024: Weight 197, BMI 29. Discontinuing Zepbound 2 weeks ago secondary to significant hair loss. Will hold off on all weight loss medications and follow-up in 4 weeks. Will obtain blood work prior 11/17/2024 weight 221, BMI 32. start contrave, discussed proper use and side effects, and contact office with any concerns. Discussed reinitiating wegovy in the future, will trial contrave first. Discussed referral for mounter flutes and piccolos, Patient declines at this time. Follow up in 4-6 weeks 12/24/2024: Weight 225, BMI 33. Patient feeling well mentally taking Contrave, but not noticing any significant weight loss. Will reinitiate Wegovy 0.25 mg, discussed proper use and side effect. Continue to encourage walking. States she felt best on Wegovy. 03/04/2025: Weight 227, BMI 33. Continue with Wegovy 0.25 mg x 4 weeks, increasing 0.5 mg of Wegovy today March 04, 2025. Continue to encourage walking, and resistance training. Patient states hair loss is much improved. # Hair loss: CBC, iron, TIBC, ferritin, ABHAY, CRP, estrogen, progesterone, testosterone, DHEA, TSH, T3, T4, were WNL, vitamin D was low, pt reports that she is taking vitamin D supplementation, vitamin B12 was low, pt recieved Vitamin B12 in office.Patient taking NutrAFUL [facility] improvment. Consider dermatology referral. No further workup needed at this time.Is aware GLP-1's and weight loss can promote normal hair loss. # Migraines: Adequate nutrition/hydration. Ibuprofen as needed, no red flag symptoms. Separate control, migraines have been worse since then. She is not interested in getting back on control. Taking sumatriptan as needed. If no improvement could consider alternative abortive/preventativ e therapies or imaging. #Patient taken Lexapro 5 mg, patient states that her depression has been worse secondary to weight gain, will add on Contrave # Hyperlipidemia: 08/26/2022 showing total cholesterol 294, triglycerides 323, LDL 169. Lipid panel from 12/25/2023 showing no improvement in cholesterol around 290, but improvement in triglycerides at 185, LDL 177.Based on cholesterol being 290, and cardiovascular risk factors Rosuvastatin 10 mg initiated. Lab from 09/15/2024 total cholesterol 240, LDL 151, HDL 64. Repeating lipid panel in 3-4 months. if cholesterol is still elevated consider increasing Rosuvastatin. # Left shoulder pain: followed with a chiropractor and massage therapist without significant improvement.Ordered x-rays, although patient did not obtain. Ordered MRI, showing tendinitis. Scheduled with Ortho in the next 3 weeks for cortisone injections. Follow-up in 4-6 weeks, or sooner if needed. Time spent with patient 30 minutes with greater than 50% on patient education and care coordination All quetsions answered to patients satisfaction. Patient verbalized understanding of diagnosis and treatments explained. To call sooner prior to next visit it any questions/concerns arise. Case discussed with collaborating physician Riley Quintero who reviewed the assessment and plan. Chart, medications, labs, vital signs reviewed. Dictation was accomplished with the use of [employer] voice recognition software, prone to medical misidentifications and grammatical errors. This is unintentional and the practitioner does try to identify and correct these, but some could still be present. Please do not hesitate to contact practitioner for clarification. 12/24/2024 Episodic migraine (ICD-10 - G43.909) 10/03/22: Weight 211, BMI 31.16- educated extensively on lifestyle modifications including high-protein, low carbohydrate, healthy fat, exercise, water intake, sleep hygiene, and stress relief. Patient will work on life so modifications of the next four weeks. Interested in weight loss medications. Start with Topamax 25 mg. Patient educated cannot drink alcohol on this medication. Most recent labs reviewed showing hyperlipidemia, without any insulin/diabetes concern. Patient educated on fish oil, diet, exercise. At next visit, will obtain EKG, and start phentermine 15 mg if EKG without concern. No concern for at this time. 10/31/22: weight 212, BMI 31.3- educated on lifestyle modifications. Patient went to [place], and then went to [place] and states that she has been traveling a lot and drinking more than usual. She is ready to get back on track. She has been walking more recently and focusing on portion control as well as eating earlier in the evening. She does feel some appetite suppression on metformin but is interested in starting an additional medication. She did not tolerate Topamax well. EKG's office today within normal limits. Will start phentermine 15 mg. Patient educated on side effects as well as proper use. Will follow-up in four weeks, sooner as needed.Encouraged to increase water intake. 12/05/22: weight 211.5, BMI 31.23- educated extensive and lifestyle modifications. Patient was congratulated on efforts. Taking phentermine 15 mg with compliance, without any side effects. Interested in increasing dose of 30 mg. If patient continues to have minimal weight loss, could consider GLP-1 injection such as Wegovy next visit, as at that time, patient will have three consecutive months of trying to lose weight. Patient understanding and aware of this plan. Educated to increase more formal exercise. 01/09/2023: Weight 207.3, BMI 30.61-patient congratulated on efforts, has been losing some weight. Taking phentermine 30 mg with compliance, without any side effects. Is noticing more appetite suppression on 30 mg then 15. Interested in increasing dose to 37.5. We did have a discussion about possibly switching to GLP-1 such as Wegovy, but having difficulty with supply at this time therefore we will continue phentermine 37.5 at this time. Did talk about compounded semaglutide as well, but patient states she will find it difficult to come to the office once weekly. Will increase to phentermine 37.5, and add Topamax. Patient also does admit to occasional headaches and history of migraines and this could benefit that as well. Educated on proper use, as well as side effects. 02/08/2023: Weight 205, BMI 30.27. Patient congratulated on effort. Taking phentermine 37.5, and Topamax. Noticing some appetite suppression but not significant effect. Interested in tapering off, and starting a different medication such as GLP-1 injection. Patient aware of the national shortage difficulty, but is interested in Saxenda. Did discuss proper use, and side effects of medication. We will taper phentermine, and start Saxenda. 03/12/2023: Weight 207.1, BMI 30.58. Patient expresses frustration given her current circumstances. She has not been able to obtain Saxenda from the pharmacy despite insurance approval. Currently taking phentermine 15 mg with no effect despite maintaining lifestyle modifications. Goals reevaluated and discussed incorporating increased intensity exercise in addition to walking as tolerated. Contacted [facility] pharmacy in [place] who states they cannot dispense Saxenda secondary to supply issues. Called [facility] specialty pharmacy, and Saxenda continues to be on backorder until unknown date. Will send to other [facility] pharmacy in [place], but patient will continue to call pharmacies to see who has availability, and happy to send to pharmacy when she can find one. She is understanding and aware. 04/12/2023: Weight 209 pounds, BMI 30.86. Patient did gain weight, but upon review of body composition scan she did gain 3 pounds of muscle, and lost 1 pound of fat. She was congratulated. Has been working hard with exercise and focusing on portion control but she states that she is going in the opposite direction because she is off of phentermine. Is interested in weight loss medications, tried sending Saxenda but was unable to obtain due to supply concern. We will start compounded semaglutide 0.25 mg today, and follow-up in 4 weeks. Also sending for Wegovy 0.5 mg and she is going to call the pharmacy to see if she can find although she is aware of the national shortage. 07/24/2023: Weight 199.6, BMI 29.47. Patient is welcome back to the practice, has not followed up since April due to insurance concerns, but is now following with us today. Patient was doing really well on semaglutide, but feels like she is now plateauing. Taking 0.5 mg, but interested in increasing to 1 mg. Will provide semaglutide 1 mg today, and submit for Wegovy 1 mg.Encouraged to continue with lifestyle modifications. 12/24/2023: Weight 204.1, BMI 30.14. Patient has gained since visit,, trying to get back on track. Was taking Wegovy 1 mg doing well, has been off for 6 weeks, so we will try to get her back on 1 mg and if not we will increase her to Wegovy 1.7 mg. Educated on proper use, side effects, long-term risk. 03/05/2024: Weight 203, BMI 30. Taking Wegovy 1.7 mg, will continue for another 4 weeks, and then consider increasing to 2.4 mg. If still at a plateau, consider switching over to Zepbound. Implementing more resistance training, and higher protein. Body scan reviewed today 04/02/2024: Weight 199, BMI 29: Patient congratulated on effort, continuing to lose slow, steady weight. Continue with Wegovy 1.7 mg. Encouraged to increase more resistance training, protein, and water intake. Follow-up in 4 weeks, could consider increasing Wegovy to 2.4 mg, or continuing with dose. 05/08/2024: Weight 198, BMI 29.25. Patient continuing to walk. Exercise otherwise limited due to right shoulder pain for which she is following with a chiropractor. Continue Wegovy but increase to 2.4 mg. If no improvement, consider switching over to Zepbound. Following up for physical in 1 month. 06/10/2024: Weight 201, BMI 29.74. Patient sought a plateau, will discontinue Wegovy, switch to Zepbound 2.5 mg. Discussed proper use, side effects. Follow-up in 4 to 6 weeks. 07/28/2024: Weight 198, BMI 29. Weight plateaued since last visit. Switched over to Zepbound 2.5 mg, increased to 5 mg. Her grandmother just passed, so she has been planning arrangements and exercises been off. 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 09/10/2024: Weight 197, BMI 29. Discontinuing Zepbound 2 weeks ago secondary to significant hair loss. Will hold off on all weight loss medications and follow-up in 4 weeks. Will obtain blood work prior 11/17/2024 weight 221, BMI 32. start contrave, discussed proper use and side effects, and contact office with any concerns. Discussed reinitiating wegovy in the future, will trial contrave first. Discussed referral for mounter flutes and piccolos, Patient declines at this time. Follow up in 4-6 weeks 12/24/2024: Weight 225, BMI 33. Patient feeling well mentally taking Contrave, but not noticing any significant weight loss. Will reinitiate Wegovy 0.25 mg, discussed proper use and side effect. Continue to encourage walking. States she felt best on Wegovy. # Hair loss: CBC, iron, TIBC, ferritin, ABHAY, CRP, estrogen, progesterone, testosterone, DHEA, TSH, T3, T4, were WNL, vitamin D was low, pt reports that she is taking vitamin D supplementation, vitamin B12 was low, pt recieved Vitamin B12 in office.Patient taking NutrAFUL wth improvment. Consider dermatology referral. No further workup needed at this time.Is aware GLP-1's and weight loss can promote normal hair loss. # Migraines: Adequate nutrition/hydration. Ibuprofen as needed, no red flag symptoms. Separate control, migraines have been worse since then. She is not interested in getting back on control. Taking sumatriptan as needed. If no improvement could consider alternative abortive/preventativ e therapies or imaging. #Patient taken Lexapro 5 mg, patient states that her depression has been worse secondary to weight gain, will add on Contrave # Hyperlipidemia: 08/26/2022 showing total cholesterol 294, triglycerides 323, LDL 169. Lipid panel from 12/25/2023 showing no improvement in cholesterol around 290, but improvement in triglycerides at 185, LDL 177.Based on cholesterol being 290, and cardiovascular risk factors Rosuvastatin 10 mg initiated. Lab from 09/15/2024 total cholesterol 240, LDL 151, HDL 64. Repeating lipid panel in 3-4 months. if cholesterol is still elevated consider increasing Rosuvastatin. # Left shoulder pain: followed with a chiropractor and massage therapist without significant improvement.Ordered x-rays, although patient did not obtain. Ordered MRI, showing tendinitis. Scheduled with Ortho in the next 3 weeks for cortisone injections. Follow-up in 4-6 weeks, or sooner if needed. Time spent with patient 30 minutes with greater than 50% on patient education and care coordination All quetsions answered to patients satisfaction. Patient verbalized understanding of diagnosis and treatments explained. To call sooner prior to next visit it any questions/concerns arise. Case discussed with collaborating physician Riley Quintero who reviewed the assessment and plan. Chart, medications, labs, vital signs reviewed. Dictation was accomplished with the use of [employer] voice recognition software, prone to medical misidentifications and grammatical errors. This is unintentional and the practitioner does try to identify and correct these, but some could still be present. Please do not hesitate to contact practitioner for clarification. 04/13/2025 Episodic migraine (ICD-10 - G43.909) 10/03/22: Weight 211, BMI 31.16- educated extensively on lifestyle modifications including high-protein, low carbohydrate, healthy fat, exercise, water intake, sleep hygiene, and stress relief. Patient will work on life so modifications of the next four weeks. Interested in weight loss medications. Start with Topamax 25 mg. Patient educated cannot drink alcohol on this medication. Most recent labs reviewed showing hyperlipidemia, without any insulin/diabetes concern. Patient educated on fish oil, diet, exercise. At next visit, will obtain EKG, and start phentermine 15 mg if EKG without concern. No concern for at this time. 10/31/22: weight 212, BMI 31.3- educated on lifestyle modifications. Patient went to [place], and then went to [place] and states that she has been traveling a lot and drinking more than usual. She is ready to get back on track. She has been walking more recently and focusing on portion control as well as eating earlier in the evening. She does feel some appetite suppression on metformin but is interested in starting an additional medication. She did not tolerate Topamax well. EKG's office today within normal limits. Will start phentermine 15 mg. Patient educated on side effects as well as proper use. Will follow-up in four weeks, sooner as needed.Encouraged to increase water intake. 12/05/22: weight 211.5, BMI 31.23- educated extensive and lifestyle modifications. Patient was congratulated on efforts. Taking phentermine 15 mg with compliance, without any side effects. Interested in increasing dose of 30 mg. If patient continues to have minimal weight loss, could consider GLP-1 injection such as Wegovy next visit, as at that time, patient will have three consecutive months of trying to lose weight. Patient understanding and aware of this plan. Educated to increase more formal exercise. 01/09/2023: Weight 207.3, BMI 30.61-patient congratulated on efforts, has been losing some weight. Taking phentermine 30 mg with compliance, without any side effects. Is noticing more appetite suppression on 30 mg then 15. Interested in increasing dose to 37.5. We did have a discussion about possibly switching to GLP-1 such as Wegovy, but having difficulty with supply at this time therefore we will continue phentermine 37.5 at this time. Did talk about compounded semaglutide as well, but patient states she will find it difficult to come to the office once weekly. Will increase to phentermine 37.5, and add Topamax. Patient also does admit to occasional headaches and history of migraines and this could benefit that as well. Educated on proper use, as well as side effects. 02/08/2023: Weight 205, BMI 30.27. Patient congratulated on effort. Taking phentermine 37.5, and Topamax. Noticing some appetite suppression but not significant effect. Interested in tapering off, and starting a different medication such as GLP-1 injection. Patient aware of the national shortage difficulty, but is interested in Saxenda. Did discuss proper use, and side effects of medication. We will taper phentermine, and start Saxenda. 03/12/2023: Weight 207.1, BMI 30.58. Patient expresses frustration given her current circumstances. She has not been able to obtain Saxenda from the pharmacy despite insurance approval. Currently taking phentermine 15 mg with no effect despite maintaining lifestyle modifications. Goals reevaluated and discussed incorporating increased intensity exercise in addition to walking as tolerated. Contacted [facility] pharmacy in [place] who states they cannot dispense Saxenda secondary to supply issues. Called [facility] specialty pharmacy, and Saxenda continues to be on backorder until unknown date. Will send to other [facility] pharmacy in [place], but patient will continue to call pharmacies to see who has availability, and happy to send to pharmacy when she can find one. She is understanding and aware. 04/12/2023: Weight 209 pounds, BMI 30.86. Patient did gain weight, but upon review of body composition scan she did gain 3 pounds of muscle, and lost 1 pound of fat. She was congratulated. Has been working hard with exercise and focusing on portion control but she states that she is going in the opposite direction because she is off of phentermine. Is interested in weight loss medications, tried sending Saxenda but was unable to obtain due to supply concern. We will start compounded semaglutide 0.25 mg today, and follow-up in 4 weeks. Also sending for Wegovy 0.5 mg and she is going to call the pharmacy to see if she can find although she is aware of the national shortage. 07/24/2023: Weight 199.6, BMI 29.47. Patient is welcome back to the practice, has not followed up since April due to insurance concerns, but is now following with us today. Patient was doing really well on semaglutide, but feels like she is now plateauing. Taking 0.5 mg, but interested in increasing to 1 mg. Will provide semaglutide 1 mg today, and submit for Wegovy 1 mg.Encouraged to continue with lifestyle modifications. 12/24/2023: Weight 204.1, BMI 30.14. Patient has gained since visit,, trying to get back on track. Was taking Wegovy 1 mg doing well, has been off for 6 weeks, so we will try to get her back on 1 mg and if not we will increase her to Wegovy 1.7 mg. Educated on proper use, side effects, long-term risk. 03/05/2024: Weight 203, BMI 30. Taking Wegovy 1.7 mg, will continue for another 4 weeks, and then consider increasing to 2.4 mg. If still at a plateau, consider switching over to Zepbound. Implementing more resistance training, and higher protein. Body scan reviewed today 04/02/2024: Weight 199, BMI 29: Patient congratulated on effort, continuing to lose slow, steady weight. Continue with Wegovy 1.7 mg. Encouraged to increase more resistance training, protein, and water intake. Follow-up in 4 weeks, could consider increasing Wegovy to 2.4 mg, or continuing with dose. 05/08/2024: Weight 198, BMI 29.25. Patient continuing to walk. Exercise otherwise limited due to right shoulder pain for which she is following with a chiropractor. Continue Wegovy but increase to 2.4 mg. If no improvement, consider switching over to Zepbound. Following up for physical in 1 month. 06/10/2024: Weight 201, BMI 29.74. Patient sought a plateau, will discontinue Wegovy, switch to Zepbound 2.5 mg. Discussed proper use, side effects. Follow-up in 4 to 6 weeks. 07/28/2024: Weight 198, BMI 29. Weight plateaued since last visit. Switched over to Zepbound 2.5 mg, increased to 5 mg. Her grandmother just passed, so she has been planning arrangements and exercises been off. 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 09/10/2024: Weight 197, BMI 29. Discontinuing Zepbound 2 weeks ago secondary to significant hair loss. Will hold off on all weight loss medications and follow-up in 4 weeks. Will obtain blood work prior 11/17/2024 weight 221, BMI 32. start contrave, discussed proper use and side effects, and contact office with any concerns. Discussed reinitiating wegovy in the future, will trial contrave first. Discussed referral for mounter flutes and piccolos, Patient declines at this time. Follow up in 4-6 weeks 12/24/2024: Weight 225, BMI 33. Patient feeling well mentally taking Contrave, but not noticing any significant weight loss. Will reinitiate Wegovy 0.25 mg, discussed proper use and side effect. Continue to encourage walking. States she felt best on Wegovy. 03/04/2025: Weight 227, BMI 33. Continue with Wegovy 0.25 mg x 4 weeks, increasing 0.5 mg of Wegovy today March 04, 2025. Continue to encourage walking, and resistance training. Patient states hair loss is much improved. 04/13/2025: Weight 221, BMI 32. Losing slow, steady weight. Very pleased with progress overall. Increase Wegovy to 1 mg. Continue with exercise walking 3 miles daily, and focusing on increasing resistance training. # Hair loss: Ongoing hair loss/fatigue. TSH, T3 and T4 within normal limits back in September 2024 but patient states that her cousins have thyroid disease and she is requesting autoimmune workup. Will order autoimmune panel. Patient taking NutrAFUL wth improvment. Consider dermatology referral. No further workup needed at this time.Is aware GLP-1's and weight loss can promote normal hair loss. # Wart of left hand, refer to dermatology. [id number] regimen not helping # Migraines: Adequate nutrition/hydration. Ibuprofen as needed, no red flag symptoms. Separate control, migraines have been worse since then. She is not interested in getting back on control. Taking sumatriptan as needed. If no improvement could consider alternative abortive/preventativ e therapies or imaging. #Patient taken Lexapro 5 mg, patient states that her depression has been worse secondary to weight gain, will add on Contrave # Hyperlipidemia: 08/26/2022 showing total cholesterol 294, triglycerides 323, LDL 169. Lipid panel from 12/25/2023 showing no improvement in cholesterol around 290, but improvement in triglycerides at 185, LDL 177.Based on cholesterol being 290, and cardiovascular risk factors Rosuvastatin 10 mg initiated. Lab from 09/15/2024 total cholesterol 240, LDL 151, HDL 64. Repeating lipid panel in 3-4 months. if cholesterol is still elevated consider increasing Rosuvastatin. # Left shoulder pain: followed with a chiropractor and massage therapist without significant improvement.Ordered x-rays, although patient did not obtain. Ordered MRI, showing tendinitis. Scheduled with Ortho in the next 3 weeks for cortisone injections. Follow-up in 4-6 weeks, or sooner if needed. Time spent with patient 30 minutes with greater than 50% on patient education and care coordination All quetsions answered to patients satisfaction. Patient verbalized understanding of diagnosis and treatments explained. To call sooner prior to next visit it any questions/concerns arise. Case discussed with collaborating physician Riley Quintero who reviewed the assessment and plan. Chart, medications, labs, vital signs reviewed. Dictation was accomplished with the use of [employer] voice recognition software, prone to medical misidentifications and grammatical errors. This is unintentional and the practitioner does try to identify and correct these, but some could still be present. Please do not hesitate to contact practitioner for clarification. 04/13/2025 Nutritional counseling (ICD-10 - Z71.3) 10/03/22: Weight 211, BMI 31.16- educated extensively on lifestyle modifications including high-protein, low carbohydrate, healthy fat, exercise, water intake, sleep hygiene, and stress relief. Patient will work on life so modifications of the next four weeks. Interested in weight loss medications. Start with Topamax 25 mg. Patient educated cannot drink alcohol on this medication. Most recent labs reviewed showing hyperlipidemia, without any insulin/diabetes concern. Patient educated on fish oil, diet, exercise. At next visit, will obtain EKG, and start phentermine 15 mg if EKG without concern. No concern for at this time. 10/31/22: weight 212, BMI 31.3- educated on lifestyle modifications. Patient went to [place], and then went to [place] and states that she has been traveling a lot and drinking more than usual. She is ready to get back on track. She has been walking more recently and focusing on portion control as well as eating earlier in the evening. She does feel some appetite suppression on metformin but is interested in starting an additional medication. She did not tolerate Topamax well. EKG's office today within normal limits. Will start phentermine 15 mg. Patient educated on side effects as well as proper use. Will follow-up in four weeks, sooner as needed.Encouraged to increase water intake. 12/05/22: weight 211.5, BMI 31.23- educated extensive and lifestyle modifications. Patient was congratulated on efforts. Taking phentermine 15 mg with compliance, without any side effects. Interested in increasing dose of 30 mg. If patient continues to have minimal weight loss, could consider GLP-1 injection such as Wegovy next visit, as at that time, patient will have three consecutive months of trying to lose weight. Patient understanding and aware of this plan. Educated to increase more formal exercise. 01/09/2023: Weight 207.3, BMI 30.61-patient congratulated on efforts, has been losing some weight. Taking phentermine 30 mg with compliance, without any side effects. Is noticing more appetite suppression on 30 mg then 15. Interested in increasing dose to 37.5. We did have a discussion about possibly switching to GLP-1 such as Wegovy, but having difficulty with supply at this time therefore we will continue phentermine 37.5 at this time. Did talk about compounded semaglutide as well, but patient states she will find it difficult to come to the office once weekly. Will increase to phentermine 37.5, and add Topamax. Patient also does admit to occasional headaches and history of migraines and this could benefit that as well. Educated on proper use, as well as side effects. 02/08/2023: Weight 205, BMI 30.27. Patient congratulated on effort. Taking phentermine 37.5, and Topamax. Noticing some appetite suppression but not significant effect. Interested in tapering off, and starting a different medication such as GLP-1 injection. Patient aware of the national shortage difficulty, but is interested in Saxenda. Did discuss proper use, and side effects of medication. We will taper phentermine, and start Saxenda. 03/12/2023: Weight 207.1, BMI 30.58. Patient expresses frustration given her current circumstances. She has not been able to obtain Saxenda from the pharmacy despite insurance approval. Currently taking phentermine 15 mg with no effect despite maintaining lifestyle modifications. Goals reevaluated and discussed incorporating increased intensity exercise in addition to walking as tolerated. Contacted [facility] pharmacy in [place] who states they cannot dispense Saxenda secondary to supply issues. Called [facility] specialty pharmacy, and Saxenda continues to be on backorder until unknown date. Will send to other [facility] pharmacy in [place], but patient will continue to call pharmacies to see who has availability, and happy to send to pharmacy when she can find one. She is understanding and aware. 04/12/2023: Weight 209 pounds, BMI 30.86. Patient did gain weight, but upon review of body composition scan she did gain 3 pounds of muscle, and lost 1 pound of fat. She was congratulated. Has been working hard with exercise and focusing on portion control but she states that she is going in the opposite direction because she is off of phentermine. Is interested in weight loss medications, tried sending Saxenda but was unable to obtain due to supply concern. We will start compounded semaglutide 0.25 mg today, and follow-up in 4 weeks. Also sending for Wegovy 0.5 mg and she is going to call the pharmacy to see if she can find although she is aware of the national shortage. 07/24/2023: Weight 199.6, BMI 29.47. Patient is welcome back to the practice, has not followed up since April due to insurance concerns, but is now following with us today. Patient was doing really well on semaglutide, but feels like she is now plateauing. Taking 0.5 mg, but interested in increasing to 1 mg. Will provide semaglutide 1 mg today, and submit for Wegovy 1 mg.Encouraged to continue with lifestyle modifications. 12/24/2023: Weight 204.1, BMI 30.14. Patient has gained since visit,, trying to get back on track. Was taking Wegovy 1 mg doing well, has been off for 6 weeks, so we will try to get her back on 1 mg and if not we will increase her to Wegovy 1.7 mg. Educated on proper use, side effects, long-term risk. 03/05/2024: Weight 203, BMI 30. Taking Wegovy 1.7 mg, will continue for another 4 weeks, and then consider increasing to 2.4 mg. If still at a plateau, consider switching over to Zepbound. Implementing more resistance training, and higher protein. Body scan reviewed today 04/02/2024: Weight 199, BMI 29: Patient congratulated on effort, continuing to lose slow, steady weight. Continue with Wegovy 1.7 mg. Encouraged to increase more resistance training, protein, and water intake. Follow-up in 4 weeks, could consider increasing Wegovy to 2.4 mg, or continuing with dose. 05/08/2024: Weight 198, BMI 29.25. Patient continuing to walk. Exercise otherwise limited due to right shoulder pain for which she is following with a chiropractor. Continue Wegovy but increase to 2.4 mg. If no improvement, consider switching over to Zepbound. Following up for physical in 1 month. 06/10/2024: Weight 201, BMI 29.74. Patient sought a plateau, will discontinue Wegovy, switch to Zepbound 2.5 mg. Discussed proper use, side effects. Follow-up in 4 to 6 weeks. 07/28/2024: Weight 198, BMI 29. Weight plateaued since last visit. Switched over to Zepbound 2.5 mg, increased to 5 mg. Her grandmother just passed, so she has been planning arrangements and exercises been off. 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 09/10/2024: Weight 197, BMI 29. Discontinuing Zepbound 2 weeks ago secondary to significant hair loss. Will hold off on all weight loss medications and follow-up in 4 weeks. Will obtain blood work prior 11/17/2024 weight 221, BMI 32. start contrave, discussed proper use and side effects, and contact office with any concerns. Discussed reinitiating wegovy in the future, will trial contrave first. Discussed referral for mounter flutes and piccolos, Patient declines at this time. Follow up in 4-6 weeks 12/24/2024: Weight 225, BMI 33. Patient feeling well mentally taking Contrave, but not noticing any significant weight loss. Will reinitiate Wegovy 0.25 mg, discussed proper use and side effect. Continue to encourage walking. States she felt best on Wegovy. 03/04/2025: Weight 227, BMI 33. Continue with Wegovy 0.25 mg x 4 weeks, increasing 0.5 mg of Wegovy today March 04, 2025. Continue to encourage walking, and resistance training. Patient states hair loss is much improved. 04/13/2025: Weight 221, BMI 32. Losing slow, steady weight. Very pleased with progress overall. Increase Wegovy to 1 mg. Continue with exercise walking 3 miles daily, and focusing on increasing resistance training. # Hair loss: Ongoing hair loss/fatigue. TSH, T3 and T4 within normal limits back in September 2024 but patient states that her cousins have thyroid disease and she is requesting autoimmune workup. Will order autoimmune panel. Patient taking NutrAFUL wth improvment. Consider dermatology referral. No further workup needed at this time.Is aware GLP-1's and weight loss can promote normal hair loss. # Wart of left hand, refer to dermatology. Lypt-xot-ognpbza regimen not helping # Migraines: Adequate nutrition/hydration. Ibuprofen as needed, no red flag symptoms. Separate control, migraines have been worse since then. She is not interested in getting back on control. Taking sumatriptan as needed. If no improvement could consider alternative abortive/preventativ e therapies or imaging. #Patient taken Lexapro 5 mg, patient states that her depression has been worse secondary to weight gain, will add on Contrave # Hyperlipidemia: 08/26/2022 showing total cholesterol 294, triglycerides 323, LDL 169. Lipid panel from 12/25/2023 showing no improvement in cholesterol around 290, but improvement in triglycerides at 185, LDL 177.Based on cholesterol being 290, and cardiovascular risk factors Rosuvastatin 10 mg initiated. Lab from 09/15/2024 total cholesterol 240, LDL 151, HDL 64. Repeating lipid panel in 3-4 months. if cholesterol is still elevated consider increasing Rosuvastatin. # Left shoulder pain: followed with a chiropractor and massage therapist without significant improvement.Ordered x-rays, although patient did not obtain. Ordered MRI, showing tendinitis. Scheduled with Ortho in the next 3 weeks for cortisone injections. Follow-up in 4-6 weeks, or sooner if needed. Time spent with patient 30 minutes with greater than 50% on patient education and care coordination All quetsions answered to patients satisfaction. Patient verbalized understanding of diagnosis and treatments explained. To call sooner prior to next visit it any questions/concerns arise. Case discussed with collaborating physician Riley Quintero who reviewed the assessment and plan. Chart, medications, labs, vital signs reviewed. Dictation was accomplished with the use of [employer] voice recognition software, prone to medical misidentifications and grammatical errors. This is unintentional and the practitioner does try to identify and correct these, but some could still be present. Please do not hesitate to contact practitioner for clarification. 12/24/2024 Nutritional counseling (ICD-10 - Z71.3) 10/03/22: Weight 211, BMI 31.16- educated extensively on lifestyle modifications including high-protein, low carbohydrate, healthy fat, exercise, water intake, sleep hygiene, and stress relief. Patient will work on life so modifications of the next four weeks. Interested in weight loss medications. Start with Topamax 25 mg. Patient educated cannot drink alcohol on this medication. Most recent labs reviewed showing hyperlipidemia, without any insulin/diabetes concern. Patient educated on fish oil, diet, exercise. At next visit, will obtain EKG, and start phentermine 15 mg if EKG without concern. No concern for at this time. 10/31/22: weight 212, BMI 31.3- educated on lifestyle modifications. Patient went to [place], and then went to [place] and states that she has been traveling a lot and drinking more than usual. She is ready to get back on track. She has been walking more recently and focusing on portion control as well as eating earlier in the evening. She does feel some appetite suppression on metformin but is interested in starting an additional medication. She did not tolerate Topamax well. EKG's office today within normal limits. Will start phentermine 15 mg. Patient educated on side effects as well as proper use. Will follow-up in four weeks, sooner as needed.Encouraged to increase water intake. 12/05/22: weight 211.5, BMI 31.23- educated extensive and lifestyle modifications. Patient was congratulated on efforts. Taking phentermine 15 mg with compliance, without any side effects. Interested in increasing dose of 30 mg. If patient continues to have minimal weight loss, could consider GLP-1 injection such as Wegovy next visit, as at that time, patient will have three consecutive months of trying to lose weight. Patient understanding and aware of this plan. Educated to increase more formal exercise. 01/09/2023: Weight 207.3, BMI 30.61-patient congratulated on efforts, has been losing some weight. Taking phentermine 30 mg with compliance, without any side effects. Is noticing more appetite suppression on 30 mg then 15. Interested in increasing dose to 37.5. We did have a discussion about possibly switching to GLP-1 such as Wegovy, but having difficulty with supply at this time therefore we will continue phentermine 37.5 at this time. Did talk about compounded semaglutide as well, but patient states she will find it difficult to come to the office once weekly. Will increase to phentermine 37.5, and add Topamax. Patient also does admit to occasional headaches and history of migraines and this could benefit that as well. Educated on proper use, as well as side effects. 02/08/2023: Weight 205, BMI 30.27. Patient congratulated on effort. Taking phentermine 37.5, and Topamax. Noticing some appetite suppression but not significant effect. Interested in tapering off, and starting a different medication such as GLP-1 injection. Patient aware of the national shortage difficulty, but is interested in Saxenda. Did discuss proper use, and side effects of medication. We will taper phentermine, and start Saxenda. 03/12/2023: Weight 207.1, BMI 30.58. Patient expresses frustration given her current circumstances. She has not been able to obtain Saxenda from the pharmacy despite insurance approval. Currently taking phentermine 15 mg with no effect despite maintaining lifestyle modifications. Goals reevaluated and discussed incorporating increased intensity exercise in addition to walking as tolerated. Contacted [facility] pharmacy in [place] who states they cannot dispense Saxenda secondary to supply issues. Called [facility] specialty pharmacy, and Saxenda continues to be on backorder until unknown date. Will send to other [facility] pharmacy in [place], but patient will continue to call pharmacies to see who has availability, and happy to send to pharmacy when she can find one. She is understanding and aware. 04/12/2023: Weight 209 pounds, BMI 30.86. Patient did gain weight, but upon review of body composition scan she did gain 3 pounds of muscle, and lost 1 pound of fat. She was congratulated. Has been working hard with exercise and focusing on portion control but she states that she is going in the opposite direction because she is off of phentermine. Is interested in weight loss medications, tried sending Saxenda but was unable to obtain due to supply concern. We will start compounded semaglutide 0.25 mg today, and follow-up in 4 weeks. Also sending for Wegovy 0.5 mg and she is going to call the pharmacy to see if she can find although she is aware of the national shortage. 07/24/2023: Weight 199.6, BMI 29.47. Patient is welcome back to the practice, has not followed up since April due to insurance concerns, but is now following with us today. Patient was doing really well on semaglutide, but feels like she is now plateauing. Taking 0.5 mg, but interested in increasing to 1 mg. Will provide semaglutide 1 mg today, and submit for Wegovy 1 mg.Encouraged to continue with lifestyle modifications. 12/24/2023: Weight 204.1, BMI 30.14. Patient has gained since visit,, trying to get back on track. Was taking Wegovy 1 mg doing well, has been off for 6 weeks, so we will try to get her back on 1 mg and if not we will increase her to Wegovy 1.7 mg. Educated on proper use, side effects, long-term risk. 03/05/2024: Weight 203, BMI 30. Taking Wegovy 1.7 mg, will continue for another 4 weeks, and then consider increasing to 2.4 mg. If still at a plateau, consider switching over to Zepbound. Implementing more resistance training, and higher protein. Body scan reviewed today 04/02/2024: Weight 199, BMI 29: Patient congratulated on effort, continuing to lose slow, steady weight. Continue with Wegovy 1.7 mg. Encouraged to increase more resistance training, protein, and water intake. Follow-up in 4 weeks, could consider increasing Wegovy to 2.4 mg, or continuing with dose. 05/08/2024: Weight 198, BMI 29.25. Patient continuing to walk. Exercise otherwise limited due to right shoulder pain for which she is following with a chiropractor. Continue Wegovy but increase to 2.4 mg. If no improvement, consider switching over to Zepbound. Following up for physical in 1 month. 06/10/2024: Weight 201, BMI 29.74. Patient sought a plateau, will discontinue Wegovy, switch to Zepbound 2.5 mg. Discussed proper use, side effects. Follow-up in 4 to 6 weeks. 07/28/2024: Weight 198, BMI 29. Weight plateaued since last visit. Switched over to Zepbound 2.5 mg, increased to 5 mg. Her grandmother just passed, so she has been planning arrangements and exercises been off. 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 09/10/2024: Weight 197, BMI 29. Discontinuing Zepbound 2 weeks ago secondary to significant hair loss. Will hold off on all weight loss medications and follow-up in 4 weeks. Will obtain blood work prior 11/17/2024 weight 221, BMI 32. start contrave, discussed proper use and side effects, and contact office with any concerns. Discussed reinitiating wegovy in the future, will trial contrave first. Discussed referral for mounter flutes and piccolos, Patient declines at this time. Follow up in 4-6 weeks 12/24/2024: Weight 225, BMI 33. Patient feeling well mentally taking Contrave, but not noticing any significant weight loss. Will reinitiate Wegovy 0.25 mg, discussed proper use and side effect. Continue to encourage walking. States she felt best on Wegovy. # Hair loss: CBC, iron, TIBC, ferritin, ABHAY, CRP, estrogen, progesterone, testosterone, DHEA, TSH, T3, T4, were WNL, vitamin D was low, pt reports that she is taking vitamin D supplementation, vitamin B12 was low, pt recieved Vitamin B12 in office.Patient taking NutrAFUL wth improvment. Consider dermatology referral. No further workup needed at this time.Is aware GLP-1's and weight loss can promote normal hair loss. # Migraines: Adequate nutrition/hydration. Ibuprofen as needed, no red flag symptoms. Separate control, migraines have been worse since then. She is not interested in getting back on control. Taking sumatriptan as needed. If no improvement could consider alternative abortive/preventativ e therapies or imaging. #Patient taken Lexapro 5 mg, patient states that her depression has been worse secondary to weight gain, will add on Contrave # Hyperlipidemia: 08/26/2022 showing total cholesterol 294, triglycerides 323, LDL 169. Lipid panel from 12/25/2023 showing no improvement in cholesterol around 290, but improvement in triglycerides at 185, LDL 177.Based on cholesterol being 290, and cardiovascular risk factors Rosuvastatin 10 mg initiated. Lab from 09/15/2024 total cholesterol 240, LDL 151, HDL 64. Repeating lipid panel in 3-4 months. if cholesterol is still elevated consider increasing Rosuvastatin. # Left shoulder pain: followed with a chiropractor and massage therapist without significant improvement.Ordered x-rays, although patient did not obtain. Ordered MRI, showing tendinitis. Scheduled with Ortho in the next 3 weeks for cortisone injections. Follow-up in 4-6 weeks, or sooner if needed. Time spent with patient 30 minutes with greater than 50% on patient education and care coordination All quetsions answered to patients satisfaction. Patient verbalized understanding of diagnosis and treatments explained. To call sooner prior to next visit it any questions/concerns arise. Case discussed with collaborating physician Riley Quintero who reviewed the assessment and plan. Chart, medications, labs, vital signs reviewed. Dictation was accomplished with the use of [employer] voice recognition software, prone to medical misidentifications and grammatical errors. This is unintentional and the practitioner does try to identify and correct these, but some could still be present. Please do not hesitate to contact practitioner for clarification. 03/04/2025 Episodic migraine (ICD-10 - G43.909) 10/03/22: Weight 211, BMI 31.16- educated extensively on lifestyle modifications including high-protein, low carbohydrate, healthy fat, exercise, water intake, sleep hygiene, and stress relief. Patient will work on life so modifications of the next four weeks. Interested in weight loss medications. Start with Topamax 25 mg. Patient educated cannot drink alcohol on this medication. Most recent labs reviewed showing hyperlipidemia, without any insulin/diabetes concern. Patient educated on fish oil, diet, exercise. At next visit, will obtain EKG, and start phentermine 15 mg if EKG without concern. No concern for at this time. 10/31/22: weight 212, BMI 31.3- educated on lifestyle modifications. Patient went to [place], and then went to [place] and states that she has been traveling a lot and drinking more than usual. She is ready to get back on track. She has been walking more recently and focusing on portion control as well as eating earlier in the evening. She does feel some appetite suppression on metformin but is interested in starting an additional medication. She did not tolerate Topamax well. EKG's office today within normal limits. Will start phentermine 15 mg. Patient educated on side effects as well as proper use. Will follow-up in four weeks, sooner as needed.Encouraged to increase water intake. 12/05/22: weight 211.5, BMI 31.23- educated extensive and lifestyle modifications. Patient was congratulated on efforts. Taking phentermine 15 mg with compliance, without any side effects. Interested in increasing dose of 30 mg. If patient continues to have minimal weight loss, could consider GLP-1 injection such as Wegovy next visit, as at that time, patient will have three consecutive months of trying to lose weight. Patient understanding and aware of this plan. Educated to increase more formal exercise. 01/09/2023: Weight 207.3, BMI 30.61-patient congratulated on efforts, has been losing some weight. Taking phentermine 30 mg with compliance, without any side effects. Is noticing more appetite suppression on 30 mg then 15. Interested in increasing dose to 37.5. We did have a discussion about possibly switching to GLP-1 such as Wegovy, but having difficulty with supply at this time therefore we will continue phentermine 37.5 at this time. Did talk about compounded semaglutide as well, but patient states she will find it difficult to come to the office once weekly. Will increase to phentermine 37.5, and add Topamax. Patient also does admit to occasional headaches and history of migraines and this could benefit that as well. Educated on proper use, as well as side effects. 02/08/2023: Weight 205, BMI 30.27. Patient congratulated on effort. Taking phentermine 37.5, and Topamax. Noticing some appetite suppression but not significant effect. Interested in tapering off, and starting a different medication such as GLP-1 injection. Patient aware of the national shortage difficulty, but is interested in Saxenda. Did discuss proper use, and side effects of medication. We will taper phentermine, and start Saxenda. 03/12/2023: Weight 207.1, BMI 30.58. Patient expresses frustration given her current circumstances. She has not been able to obtain Saxenda from the pharmacy despite insurance approval. Currently taking phentermine 15 mg with no effect despite maintaining lifestyle modifications. Goals reevaluated and discussed incorporating increased intensity exercise in addition to walking as tolerated. Contacted [facility] pharmacy in [place] who states they cannot dispense Saxenda secondary to supply issues. Called [facility] specialty pharmacy, and Saxenda continues to be on backorder until unknown date. Will send to other [facility] pharmacy in [place], but patient will continue to call pharmacies to see who has availability, and happy to send to pharmacy when she can find one. She is understanding and aware. 04/12/2023: Weight 209 pounds, BMI 30.86. Patient did gain weight, but upon review of body composition scan she did gain 3 pounds of muscle, and lost 1 pound of fat. She was congratulated. Has been working hard with exercise and focusing on portion control but she states that she is going in the opposite direction because she is off of phentermine. Is interested in weight loss medications, tried sending Saxenda but was unable to obtain due to supply concern. We will start compounded semaglutide 0.25 mg today, and follow-up in 4 weeks. Also sending for Wegovy 0.5 mg and she is going to call the pharmacy to see if she can find although she is aware of the national shortage. 07/24/2023: Weight 199.6, BMI 29.47. Patient is welcome back to the practice, has not followed up since April due to insurance concerns, but is now following with us today. Patient was doing really well on semaglutide, but feels like she is now plateauing. Taking 0.5 mg, but interested in increasing to 1 mg. Will provide semaglutide 1 mg today, and submit for Wegovy 1 mg.Encouraged to continue with lifestyle modifications. 12/24/2023: Weight 204.1, BMI 30.14. Patient has gained since visit,, trying to get back on track. Was taking Wegovy 1 mg doing well, has been off for 6 weeks, so we will try to get her back on 1 mg and if not we will increase her to Wegovy 1.7 mg. Educated on proper use, side effects, long-term risk. 03/05/2024: Weight 203, BMI 30. Taking Wegovy 1.7 mg, will continue for another 4 weeks, and then consider increasing to 2.4 mg. If still at a plateau, consider switching over to Zepbound. Implementing more resistance training, and higher protein. Body scan reviewed today 04/02/2024: Weight 199, BMI 29: Patient congratulated on effort, continuing to lose slow, steady weight. Continue with Wegovy 1.7 mg. Encouraged to increase more resistance training, protein, and water intake. Follow-up in 4 weeks, could consider increasing Wegovy to 2.4 mg, or continuing with dose. 05/08/2024: Weight 198, BMI 29.25. Patient continuing to walk. Exercise otherwise limited due to right shoulder pain for which she is following with a chiropractor. Continue Wegovy but increase to 2.4 mg. If no improvement, consider switching over to Zepbound. Following up for physical in 1 month. 06/10/2024: Weight 201, BMI 29.74. Patient sought a plateau, will discontinue Wegovy, switch to Zepbound 2.5 mg. Discussed proper use, side effects. Follow-up in 4 to 6 weeks. 07/28/2024: Weight 198, BMI 29. Weight plateaued since last visit. Switched over to Zepbound 2.5 mg, increased to 5 mg. Her grandmother just passed, so she has been planning arrangements and exercises been off. 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 09/10/2024: Weight 197, BMI 29. Discontinuing Zepbound 2 weeks ago secondary to significant hair loss. Will hold off on all weight loss medications and follow-up in 4 weeks. Will obtain blood work prior 11/17/2024 weight 221, BMI 32. start contrave, discussed proper use and side effects, and contact office with any concerns. Discussed reinitiating wegovy in the future, will trial contrave first. Discussed referral for mounter flutes and piccolos, Patient declines at this time. Follow up in 4-6 weeks 12/24/2024: Weight 225, BMI 33. Patient feeling well mentally taking Contrave, but not noticing any significant weight loss. Will reinitiate Wegovy 0.25 mg, discussed proper use and side effect. Continue to encourage walking. States she felt best on Wegovy. 03/04/2025: Weight 227, BMI 33. Continue with Wegovy 0.25 mg x 4 weeks, increasing 0.5 mg of Wegovy today March 04, 2025. Continue to encourage walking, and resistance training. Patient states hair loss is much improved. # Hair loss: CBC, iron, TIBC, ferritin, ABHAY, CRP, estrogen, progesterone, testosterone, DHEA, TSH, T3, T4, were WNL, vitamin D was low, pt reports that she is taking vitamin D supplementation, vitamin B12 was low, pt recieved Vitamin B12 in office.Patient taking NutrAFUL wth improvment. Consider dermatology referral. No further workup needed at this time.Is aware GLP-1's and weight loss can promote normal hair loss. # Migraines: Adequate nutrition/hydration. Ibuprofen as needed, no red flag symptoms. Separate control, migraines have been worse since then. She is not interested in getting back on control. Taking sumatriptan as needed. If no improvement could consider alternative abortive/preventativ e therapies or imaging. #Patient taken Lexapro 5 mg, patient states that her depression has been worse secondary to weight gain, will add on Contrave # Hyperlipidemia: 08/26/2022 showing total cholesterol 294, triglycerides 323, LDL 169. Lipid panel from 12/25/2023 showing no improvement in cholesterol around 290, but improvement in triglycerides at 185, LDL 177.Based on cholesterol being 290, and cardiovascular risk factors Rosuvastatin 10 mg initiated. Lab from 09/15/2024 total cholesterol 240, LDL 151, HDL 64. Repeating lipid panel in 3-4 months. if cholesterol is still elevated consider increasing Rosuvastatin. # Left shoulder pain: followed with a chiropractor and massage therapist without significant improvement.Ordered x-rays, although patient did not obtain. Ordered MRI, showing tendinitis. Scheduled with Ortho in the next 3 weeks for cortisone injections. Follow-up in 4-6 weeks, or sooner if needed. Time spent with patient 30 minutes with greater than 50% on patient education and care coordination All quetsions answered to patients satisfaction. Patient verbalized understanding of diagnosis and treatments explained. To call sooner prior to next visit it any questions/concerns arise. Case discussed with collaborating physician Riley Quintero who reviewed the assessment and plan. Chart, medications, labs, vital signs reviewed. Dictation was accomplished with the use of [employer] voice recognition software, prone to medical misidentifications and grammatical errors. This is unintentional and the practitioner does try to identify and correct these, but some could still be present. Please do not hesitate to contact practitioner for clarification. 11/17/2024 Hyperlipidemia, unspecified hyperlipidemia type (ICD-10 - E78.5) 10/03/22: Weight 211, BMI 31.16- educated extensively on lifestyle modifications including high-protein, low carbohydrate, healthy fat, exercise, water intake, sleep hygiene, and stress relief. Patient will work on life so modifications of the next four weeks. Interested in weight loss medications. Start with Topamax 25 mg. Patient educated cannot drink alcohol on this medication. Most recent labs reviewed showing hyperlipidemia, without any insulin/diabetes concern. Patient educated on fish oil, diet, exercise. At next visit, will obtain EKG, and start phentermine 15 mg if EKG without concern. No concern for at this time. 10/31/22: weight 212, BMI 31.3- educated on lifestyle modifications. Patient went to [place], and then went to [place] and states that she has been traveling a lot and drinking more than usual. She is ready to get back on track. She has been walking more recently and focusing on portion control as well as eating earlier in the evening. She does feel some appetite suppression on metformin but is interested in starting an additional medication. She did not tolerate Topamax well. EKG's office today within normal limits. Will start phentermine 15 mg. Patient educated on side effects as well as proper use. Will follow-up in four weeks, sooner as needed.Encouraged to increase water intake. 12/05/22: weight 211.5, BMI 31.23- educated extensive and lifestyle modifications. Patient was congratulated on efforts. Taking phentermine 15 mg with compliance, without any side effects. Interested in increasing dose of 30 mg. If patient continues to have minimal weight loss, could consider GLP-1 injection such as Wegovy next visit, as at that time, patient will have three consecutive months of trying to lose weight. Patient understanding and aware of this plan. Educated to increase more formal exercise. 01/09/2023: Weight 207.3, BMI 30.61-patient congratulated on efforts, has been losing some weight. Taking phentermine 30 mg with compliance, without any side effects. Is noticing more appetite suppression on 30 mg then 15. Interested in increasing dose to 37.5. We did have a discussion about possibly switching to GLP-1 such as Wegovy, but having difficulty with supply at this time therefore we will continue phentermine 37.5 at this time. Did talk about compounded semaglutide as well, but patient states she will find it difficult to come to the office once weekly. Will increase to phentermine 37.5, and add Topamax. Patient also does admit to occasional headaches and history of migraines and this could benefit that as well. Educated on proper use, as well as side effects. 02/08/2023: Weight 205, BMI 30.27. Patient congratulated on effort. Taking phentermine 37.5, and Topamax. Noticing some appetite suppression but not significant effect. Interested in tapering off, and starting a different medication such as GLP-1 injection. Patient aware of the national shortage difficulty, but is interested in Saxenda. Did discuss proper use, and side effects of medication. We will taper phentermine, and start Saxenda. 03/12/2023: Weight 207.1, BMI 30.58. Patient expresses frustration given her current circumstances. She has not been able to obtain Saxenda from the pharmacy despite insurance approval. Currently taking phentermine 15 mg with no effect despite maintaining lifestyle modifications. Goals reevaluated and discussed incorporating increased intensity exercise in addition to walking as tolerated. Contacted [facility] pharmacy in [place] who states they cannot dispense Saxenda secondary to supply issues. Called [facility] specialty pharmacy, and Saxenda continues to be on backorder until unknown date. Will send to other [facility] pharmacy in [place], but patient will continue to call pharmacies to see who has availability, and happy to send to pharmacy when she can find one. She is understanding and aware. 04/12/2023: Weight 209 pounds, BMI 30.86. Patient did gain weight, but upon review of body composition scan she did gain 3 pounds of muscle, and lost 1 pound of fat. She was congratulated. Has been working hard with exercise and focusing on portion control but she states that she is going in the opposite direction because she is off of phentermine. Is interested in weight loss medications, tried sending Saxenda but was unable to obtain due to supply concern. We will start compounded semaglutide 0.25 mg today, and follow-up in 4 weeks. Also sending for Wegovy 0.5 mg and she is going to call the pharmacy to see if she can find although she is aware of the national shortage. 07/24/2023: Weight 199.6, BMI 29.47. Patient is welcome back to the practice, has not followed up since April due to insurance concerns, but is now following with us today. Patient was doing really well on semaglutide, but feels like she is now plateauing. Taking 0.5 mg, but interested in increasing to 1 mg. Will provide semaglutide 1 mg today, and submit for Wegovy 1 mg.Encouraged to continue with lifestyle modifications. 12/24/2023: Weight 204.1, BMI 30.14. Patient has gained since visit,, trying to get back on track. Was taking Wegovy 1 mg doing well, has been off for 6 weeks, so we will try to get her back on 1 mg and if not we will increase her to Wegovy 1.7 mg. Educated on proper use, side effects, long-term risk. 03/05/2024: Weight 203, BMI 30. Taking Wegovy 1.7 mg, will continue for another 4 weeks, and then consider increasing to 2.4 mg. If still at a plateau, consider switching over to Zepbound. Implementing more resistance training, and higher protein. Body scan reviewed today 04/02/2024: Weight 199, BMI 29: Patient congratulated on effort, continuing to lose slow, steady weight. Continue with Wegovy 1.7 mg. Encouraged to increase more resistance training, protein, and water intake. Follow-up in 4 weeks, could consider increasing Wegovy to 2.4 mg, or continuing with dose. 05/08/2024: Weight 198, BMI 29.25. Patient continuing to walk. Exercise otherwise limited due to right shoulder pain for which she is following with a chiropractor. Continue Wegovy but increase to 2.4 mg. If no improvement, consider switching over to Zepbound. Following up for physical in 1 month. 06/10/2024: Weight 201, BMI 29.74. Patient sought a plateau, will discontinue Wegovy, switch to Zepbound 2.5 mg. Discussed proper use, side effects. Follow-up in 4 to 6 weeks. 07/28/2024: Weight 198, BMI 29. Weight plateaued since last visit. Switched over to Zepbound 2.5 mg, increased to 5 mg. Her grandmother just passed, so she has been planning arrangements and exercises been off. 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 09/10/2024: Weight 197, BMI 29. Discontinuing Zepbound 2 weeks ago secondary to significant hair loss. Will hold off on all weight loss medications and follow-up in 4 weeks. Will obtain blood work prior 11/17/2024 weight 221, BMI 32. start contrave, discussed proper use and side effects, and contact office with any concerns. Discussed reinitiating wegovy in the future, will trial contrave first. Discussed referral for mounter flutes and piccolos, Patient declines at this time. Follow up in 4-6 weeks # Hair loss: CBC, iron, TIBC, ferritin, ABHAY, CRP, estrogen, progesterone, testosterone, DHEA, TSH, T3, T4, were WNL, vitamin D was low, pt reports that she is taking vitamin D supplementation, vitamin B12 was low, pt recieved Vitamin B12 in office.Patient taking NutrAFUL wth improvment. Consider dermatology referral. # Migraines: Adequate nutrition/hydration. Ibuprofen as needed, no red flag symptoms. Separate control, migraines have been worse since then. She is not interested in getting back on control. Taking sumatriptan as needed. If no improvement could consider alternative abortive/preventativ e therapies or imaging. #Patient taken Lexapro 5 mg, patient states that her depression has been worse secondary to weight gain, will add on Contrave # Hyperlipidemia: 08/26/2022 showing total cholesterol 294, triglycerides 323, LDL 169. Lipid panel from 12/25/2023 showing no improvement in cholesterol around 290, but improvement in triglycerides at 185, LDL 177.Based on cholesterol being 290, and cardiovascular risk factors Rosuvastatin 10 mg initiated. Lab from 09/15/2024 total cholesterol 240, LDL 151, HDL 64. Repeating lipid panel in 3-4 months. if cholesterol is still elevated consider increasing Rosuvastatin. # Left shoulder pain: followed with a chiropractor and massage therapist without significant improvement.Ordered x-rays, although patient did not obtain. Ordered MRI of the LT shoulder Without contrast, concerned for rotater cuff abnormality Based on physical examination. Follow-up in 4 weeks, or sooner if needed. All quetsions answered to patients satisfaction. Patient verbalized understanding of diagnosis and treatments explained. To call sooner prior to next visit it any questions/concerns arise. Case discussed with collaborating physician Riley Quintero who reviewed the assessment and plan. Chart, medications, labs, vital signs reviewed. Dictation was accomplished with the use of [employer] voice recognition software, prone to medical misidentifications and grammatical errors. This is unintentional and the practitioner does try to identify and correct these, but some could still be present. Please do not hesitate to contact practitioner for clarification. 09/10/2024 Nutritional counseling (ICD-10 - Z71.3) 10/03/22: Weight 211, BMI 31.16- educated extensively on lifestyle modifications including high-protein, low carbohydrate, healthy fat, exercise, water intake, sleep hygiene, and stress relief. Patient will work on life so modifications of the next four weeks. Interested in weight loss medications. Start with Topamax 25 mg. Patient educated cannot drink alcohol on this medication. Most recent labs reviewed showing hyperlipidemia, without any insulin/diabetes concern. Patient educated on fish oil, diet, exercise. At next visit, will obtain EKG, and start phentermine 15 mg if EKG without concern. No concern for at this time. 10/31/22: weight 212, BMI 31.3- educated on lifestyle modifications. Patient went to [place], and then went to [place] and states that she has been traveling a lot and drinking more than usual. She is ready to get back on track. She has been walking more recently and focusing on portion control as well as eating earlier in the evening. She does feel some appetite suppression on metformin but is interested in starting an additional medication. She did not tolerate Topamax well. EKG's office today within normal limits. Will start phentermine 15 mg. Patient educated on side effects as well as proper use. Will follow-up in four weeks, sooner as needed.Encouraged to increase water intake. 12/05/22: weight 211.5, BMI 31.23- educated extensive and lifestyle modifications. Patient was congratulated on efforts. Taking phentermine 15 mg with compliance, without any side effects. Interested in increasing dose of 30 mg. If patient continues to have minimal weight loss, could consider GLP-1 injection such as Wegovy next visit, as at that time, patient will have three consecutive months of trying to lose weight. Patient understanding and aware of this plan. Educated to increase more formal exercise. 01/09/2023: Weight 207.3, BMI 30.61-patient congratulated on efforts, has been losing some weight. Taking phentermine 30 mg with compliance, without any side effects. Is noticing more appetite suppression on 30 mg then 15. Interested in increasing dose to 37.5. We did have a discussion about possibly switching to GLP-1 such as Wegovy, but having difficulty with supply at this time therefore we will continue phentermine 37.5 at this time. Did talk about compounded semaglutide as well, but patient states she will find it difficult to come to the office once weekly. Will increase to phentermine 37.5, and add Topamax. Patient also does admit to occasional headaches and history of migraines and this could benefit that as well. Educated on proper use, as well as side effects. 02/08/2023: Weight 205, BMI 30.27. Patient congratulated on effort. Taking phentermine 37.5, and Topamax. Noticing some appetite suppression but not significant effect. Interested in tapering off, and starting a different medication such as GLP-1 injection. Patient aware of the national shortage difficulty, but is interested in Saxenda. Did discuss proper use, and side effects of medication. We will taper phentermine, and start Saxenda. 03/12/2023: Weight 207.1, BMI 30.58. Patient expresses frustration given her current circumstances. She has not been able to obtain Saxenda from the pharmacy despite insurance approval. Currently taking phentermine 15 mg with no effect despite maintaining lifestyle modifications. Goals reevaluated and discussed incorporating increased intensity exercise in addition to walking as tolerated. Contacted [facility] pharmacy in [place] who states they cannot dispense Saxenda secondary to supply issues. Called [facility] specialty pharmacy, and Saxenda continues to be on backorder until unknown date. Will send to other [facility] pharmacy in [place], but patient will continue to call pharmacies to see who has availability, and happy to send to pharmacy when she can find one. She is understanding and aware. 04/12/2023: Weight 209 pounds, BMI 30.86. Patient did gain weight, but upon review of body composition scan she did gain 3 pounds of muscle, and lost 1 pound of fat. She was congratulated. Has been working hard with exercise and focusing on portion control but she states that she is going in the opposite direction because she is off of phentermine. Is interested in weight loss medications, tried sending Saxenda but was unable to obtain due to supply concern. We will start compounded semaglutide 0.25 mg today, and follow-up in 4 weeks. Also sending for Wegovy 0.5 mg and she is going to call the pharmacy to see if she can find although she is aware of the national shortage. 07/24/2023: Weight 199.6, BMI 29.47. Patient is welcome back to the practice, has not followed up since April due to insurance concerns, but is now following with us today. Patient was doing really well on semaglutide, but feels like she is now plateauing. Taking 0.5 mg, but interested in increasing to 1 mg. Will provide semaglutide 1 mg today, and submit for Wegovy 1 mg.Encouraged to continue with lifestyle modifications. 12/24/2023: Weight 204.1, BMI 30.14. Patient has gained since visit,, trying to get back on track. Was taking Wegovy 1 mg doing well, has been off for 6 weeks, so we will try to get her back on 1 mg and if not we will increase her to Wegovy 1.7 mg. Educated on proper use, side effects, long-term risk. 03/05/2024: Weight 203, BMI 30. Taking Wegovy 1.7 mg, will continue for another 4 weeks, and then consider increasing to 2.4 mg. If still at a plateau, consider switching over to Zepbound. Implementing more resistance training, and higher protein. Body scan reviewed today 04/02/2024: Weight 199, BMI 29: Patient congratulated on effort, continuing to lose slow, steady weight. Continue with Wegovy 1.7 mg. Encouraged to increase more resistance training, protein, and water intake. Follow-up in 4 weeks, could consider increasing Wegovy to 2.4 mg, or continuing with dose. 05/08/2024: Weight 198, BMI 29.25. Patient continuing to walk. Exercise otherwise limited due to right shoulder pain for which she is following with a chiropractor. Continue Wegovy but increase to 2.4 mg. If no improvement, consider switching over to Zepbound. Following up for physical in 1 month. 06/10/2024: Weight 201, BMI 29.74. Patient sought a plateau, will discontinue Wegovy, switch to Zepbound 2.5 mg. Discussed proper use, side effects. Follow-up in 4 to 6 weeks. 07/28/2024: Weight 198, BMI 29. Weight plateaued since last visit. Switched over to Zepbound 2.5 mg, increased to 5 mg. Her grandmother just passed, so she has been planning arrangements and exercises been off. 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 09/10/2024: Weight 197, BMI 29. Discontinuing Zepbound 2 weeks ago secondary to significant hair loss. Will hold off on all weight loss medications and follow-up in 4 weeks. Will obtain blood work prior # Hair loss: Ordering CBC, iron, TIBC, ferritin, ABHAY, CRP, estrogen, progesterone, testosterone, DHEA, TSH, T3, T4, vitamin D, and vitamin B12.Patient taking NutrAFUL. Consider dermatology referral. # Migraines: Adequate nutrition/hydration. Ibuprofen as needed, no red flag symptoms. Separate control, migraines have been worse since then. She is not interested in getting back on control. Taking sumatriptan as needed. If no improvement could consider alternative abortive/preventativ e therapies or imaging. #Patient taken Lexapro. No concerns at this time. # Hyperlipidemia: Labs from 08/26/2022 showing total cholesterol 294, triglycerides 323, LDL 169. Lipid panel from 12/25/2023 showing no improvement in cholesterol around 290, but improvement in triglycerides at 185, LDL 177.Based on cholesterol being 290, and cardiovascular risk factors Rosuvastatin 10 mg initiated. Repeating lipid panel. # Right shoulder pain: X 6 months, followed with a chiropractor and massage therapist without significant improvement.Ordered x-rays, although patient did not obtain. Follow-up in 4 weeks, lab in the meantime. All quetsions answered to patients satisfaction. Patient verbalized understanding of diagnosis and treatments explained. To call sooner prior to next visit it any questions/concerns arise. Case discussed with collaborating physician Riley Quintero who reviewed the assessment and plan. Chart, medications, labs, vital signs reviewed. Dictation was accomplished with the use of [employer] voice recognition software, prone to medical misidentifications and grammatical errors. This is unintentional and the practitioner does try to identify and correct these, but some could still be present. Please do not hesitate to contact practitioner for clarification. 07/28/2024 Episodic migraine (ICD-10 - G43.909) 10/03/22: Weight 211, BMI 31.16- educated extensively on lifestyle modifications including high-protein, low carbohydrate, healthy fat, exercise, water intake, sleep hygiene, and stress relief. Patient will work on life so modifications of the next four weeks. Interested in weight loss medications. Start with Topamax 25 mg. Patient educated cannot drink alcohol on this medication. Most recent labs reviewed showing hyperlipidemia, without any insulin/diabetes concern. Patient educated on fish oil, diet, exercise. At next visit, will obtain EKG, and start phentermine 15 mg if EKG without concern. No concern for at this time. 10/31/22: weight 212, BMI 31.3- educated on lifestyle modifications. Patient went to [place], and then went to [place] and states that she has been traveling a lot and drinking more than usual. She is ready to get back on track. She has been walking more recently and focusing on portion control as well as eating earlier in the evening. She does feel some appetite suppression on metformin but is interested in starting an additional medication. She did not tolerate Topamax well. EKG's office today within normal limits. Will start phentermine 15 mg. Patient educated on side effects as well as proper use. Will follow-up in four weeks, sooner as needed.Encouraged to increase water intake. 12/05/22: weight 211.5, BMI 31.23- educated extensive and lifestyle modifications. Patient was congratulated on efforts. Taking phentermine 15 mg with compliance, without any side effects. Interested in increasing dose of 30 mg. If patient continues to have minimal weight loss, could consider GLP-1 injection such as Wegovy next visit, as at that time, patient will have three consecutive months of trying to lose weight. Patient understanding and aware of this plan. Educated to increase more formal exercise. 01/09/2023: Weight 207.3, BMI 30.61-patient congratulated on efforts, has been losing some weight. Taking phentermine 30 mg with compliance, without any side effects. Is noticing more appetite suppression on 30 mg then 15. Interested in increasing dose to 37.5. We did have a discussion about possibly switching to GLP-1 such as Wegovy, but having difficulty with supply at this time therefore we will continue phentermine 37.5 at this time. Did talk about compounded semaglutide as well, but patient states she will find it difficult to come to the office once weekly. Will increase to phentermine 37.5, and add Topamax. Patient also does admit to occasional headaches and history of migraines and this could benefit that as well. Educated on proper use, as well as side effects. 02/08/2023: Weight 205, BMI 30.27. Patient congratulated on effort. Taking phentermine 37.5, and Topamax. Noticing some appetite suppression but not significant effect. Interested in tapering off, and starting a different medication such as GLP-1 injection. Patient aware of the national shortage difficulty, but is interested in Saxenda. Did discuss proper use, and side effects of medication. We will taper phentermine, and start Saxenda. 03/12/2023: Weight 207.1, BMI 30.58. Patient expresses frustration given her current circumstances. She has not been able to obtain Saxenda from the pharmacy despite insurance approval. Currently taking phentermine 15 mg with no effect despite maintaining lifestyle modifications. Goals reevaluated and discussed incorporating increased intensity exercise in addition to walking as tolerated. Contacted [facility] pharmacy in [place] who states they cannot dispense Saxenda secondary to supply issues. Called [facility] specialty pharmacy, and Saxenda continues to be on backorder until unknown date. Will send to other [facility] pharmacy in [place], but patient will continue to call pharmacies to see who has availability, and happy to send to pharmacy when she can find one. She is understanding and aware. 04/12/2023: Weight 209 pounds, BMI 30.86. Patient did gain weight, but upon review of body composition scan she did gain 3 pounds of muscle, and lost 1 pound of fat. She was congratulated. Has been working hard with exercise and focusing on portion control but she states that she is going in the opposite direction because she is off of phentermine. Is interested in weight loss medications, tried sending Saxenda but was unable to obtain due to supply concern. We will start compounded semaglutide 0.25 mg today, and follow-up in 4 weeks. Also sending for Wegovy 0.5 mg and she is going to call the pharmacy to see if she can find although she is aware of the national shortage. 07/24/2023: Weight 199.6, BMI 29.47. Patient is welcome back to the practice, has not followed up since April due to insurance concerns, but is now following with us today. Patient was doing really well on semaglutide, but feels like she is now plateauing. Taking 0.5 mg, but interested in increasing to 1 mg. Will provide semaglutide 1 mg today, and submit for Wegovy 1 mg.Encouraged to continue with lifestyle modifications. 12/24/2023: Weight 204.1, BMI 30.14. Patient has gained since visit,, trying to get back on track. Was taking Wegovy 1 mg doing well, has been off for 6 weeks, so we will try to get her back on 1 mg and if not we will increase her to Wegovy 1.7 mg. Educated on proper use, side effects, long-term risk. 03/05/2024: Weight 203, BMI 30. Taking Wegovy 1.7 mg, will continue for another 4 weeks, and then consider increasing to 2.4 mg. If still at a plateau, consider switching over to Zepbound. Implementing more resistance training, and higher protein. Body scan reviewed today 04/02/2024: Weight 199, BMI 29: Patient congratulated on effort, continuing to lose slow, steady weight. Continue with Wegovy 1.7 mg. Encouraged to increase more resistance training, protein, and water intake. Follow-up in 4 weeks, could consider increasing Wegovy to 2.4 mg, or continuing with dose. 05/08/2024: Weight 198, BMI 29.25. Patient continuing to walk. Exercise otherwise limited due to right shoulder pain for which she is following with a chiropractor. Continue Wegovy but increase to 2.4 mg. If no improvement, consider switching over to Zepbound. Following up for physical in 1 month. 06/10/2024: Weight 201, BMI 29.74. Patient sought a plateau, will discontinue Wegovy, switch to Zepbound 2.5 mg. Discussed proper use, side effects. Follow-up in 4 to 6 weeks. 07/28/2024: Weight 198, BMI 29. Weight plateaued since last visit. Switched over to Zepbound 2.5 mg, increased to 5 mg. Her grandmother just passed, so she has been planning arrangements and exercises been off. 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 #Patient also has some concerns regarding thinning of hair. Thyroid within normal limits. States that it is her also in her family. Did discuss possible dermatology referral, or PRP injections through our [facility]. # Migraines: X 3 months. Adequate nutrition/hydration. Ibuprofen as needed, no red flag symptoms. Separate control, migraines have been worse since then. She is not interested in getting back on control. Symptoms persisting, so trial sumatriptan 25 mg, repeating dose after 2 hours if symptoms persist. Discussed proper use, side effects. If no improvement could consider alternative abortive/preventativ e therapies or imaging. #Patient taken Lexapro. No concerns at this time. # Hyperlipidemia: Labs from 08/26/2022 showing total cholesterol 294, triglycerides 323, LDL 169. Lipid panel from 12/25/2023 showing no improvement in cholesterol around 290, but improvement in triglycerides at 185, LDL 177.Based on cholesterol being 290, and cardiovascular risk factors will start rosuvastatin 10 mg, Due for repeat lipid panel to assess efficacy/compliance of medication. Will order today. We discussed lifestyle factors, she is eating a lot of shrimp, and red meat. Discussed fish, fish oil, [place]'s, healthy fats. # Right shoulder pain: X 6 months, followed with a chiropractor and massage therapist without significant improvement. Will start with x-rays. Most likely will need physical therapy, Ortho referral, or further imaging. Discussed conservative treatments.Patient is updated x-ray images of order. This with patient 30 minutes with greater than 50% patient education and coordination. Work prior to next visit. Follow-up in 6 weeks, sooner as needed All quetsions answered to patients satisfaction. Patient verbalized understanding of diagnosis and treatments explained. To call sooner prior to next visit it any questions/concerns arise. Case discussed with collaborating physician Riley Quintero who reviewed the assessment and plan. Chart, medications, labs, vital signs reviewed. Dictation was accomplished with the use of [employer] voice recognition software, prone to medical misidentifications and grammatical errors. This is unintentional and the practitioner does try to identify and correct these, but some could still be present. Please do not hesitate to contact practitioner for clarification. 06/10/2024 Mixed hyperlipidemia (ICD-10 - E78.2) Glenis is a pleasant 43-year-old female presents the office for complete physical exam. Patient is up-to-date on all routine screenings, just had a mammogram this year, Pap smear this year. Follows with [facility] for both of those things. Declines flu and COVID vaccines, up-to-date on tetanus. Healthcare proxy is her boyfriend Cristino, and her mom Yeimi, which was filled out on 06/10/2024. PHQ-9 with a total score of 5, no concern regarding mental health at this time. 10/03/22: Weight 211, BMI 31.16- educated extensively on lifestyle modifications including high-protein, low carbohydrate, healthy fat, exercise, water intake, sleep hygiene, and stress relief. Patient will work on life so modifications of the next four weeks. Interested in weight loss medications. Start with Topamax 25 mg. Patient educated cannot drink alcohol on this medication. Most recent labs reviewed showing hyperlipidemia, without any insulin/diabetes concern. Patient educated on fish oil, diet, exercise. At next visit, will obtain EKG, and start phentermine 15 mg if EKG without concern. No concern for at this time. 10/31/22: weight 212, BMI 31.3- educated on lifestyle modifications. Patient went to [place], and then went to [place] and states that she has been traveling a lot and drinking more than usual. She is ready to get back on track. She has been walking more recently and focusing on portion control as well as eating earlier in the evening. She does feel some appetite suppression on metformin but is interested in starting an additional medication. She did not tolerate Topamax well. EKG's office today within normal limits. Will start phentermine 15 mg. Patient educated on side effects as well as proper use. Will follow-up in four weeks, sooner as needed.Encouraged to increase water intake. 12/05/22: weight 211.5, BMI 31.23- educated extensive and lifestyle modifications. Patient was congratulated on efforts. Taking phentermine 15 mg with compliance, without any side effects. Interested in increasing dose of 30 mg. If patient continues to have minimal weight loss, could consider GLP-1 injection such as Wegovy next visit, as at that time, patient will have three consecutive months of trying to lose weight. Patient understanding and aware of this plan. Educated to increase more formal exercise. 01/09/2023: Weight 207.3, BMI 30.61-patient congratulated on efforts, has been losing some weight. Taking phentermine 30 mg with compliance, without any side effects. Is noticing more appetite suppression on 30 mg then 15. Interested in increasing dose to 37.5. We did have a discussion about possibly switching to GLP-1 such as Wegovy, but having difficulty with supply at this time therefore we will continue phentermine 37.5 at this time. Did talk about compounded semaglutide as well, but patient states she will find it difficult to come to the office once weekly. Will increase to phentermine 37.5, and add Topamax. Patient also does admit to occasional headaches and history of migraines and this could benefit that as well. Educated on proper use, as well as side effects. 02/08/2023: Weight 205, BMI 30.27. Patient congratulated on effort. Taking phentermine 37.5, and Topamax. Noticing some appetite suppression but not significant effect. Interested in tapering off, and starting a different medication such as GLP-1 injection. Patient aware of the national shortage difficulty, but is interested in Saxenda. Did discuss proper use, and side effects of medication. We will taper phentermine, and start Saxenda. 03/12/2023: Weight 207.1, BMI 30.58. Patient expresses frustration given her current circumstances. She has not been able to obtain Saxenda from the pharmacy despite insurance approval. Currently taking phentermine 15 mg with no effect despite maintaining lifestyle modifications. Goals reevaluated and discussed incorporating increased intensity exercise in addition to walking as tolerated. Contacted [facility] pharmacy in [place] who states they cannot dispense Saxenda secondary to supply issues. Called [facility] specialty pharmacy, and Saxenda continues to be on backorder until unknown date. Will send to other [facility] pharmacy in [place], but patient will continue to call pharmacies to see who has availability, and happy to send to pharmacy when she can find one. She is understanding and aware. 04/12/2023: Weight 209 pounds, BMI 30.86. Patient did gain weight, but upon review of body composition scan she did gain 3 pounds of muscle, and lost 1 pound of fat. She was congratulated. Has been working hard with exercise and focusing on portion control but she states that she is going in the opposite direction because she is off of phentermine. Is interested in weight loss medications, tried sending Saxenda but was unable to obtain due to supply concern. We will start compounded semaglutide 0.25 mg today, and follow-up in 4 weeks. Also sending for Wegovy 0.5 mg and she is going to call the pharmacy to see if she can find although she is aware of the national shortage. 07/24/2023: Weight 199.6, BMI 29.47. Patient is welcome back to the practice, has not followed up since April due to insurance concerns, but is now following with us today. Patient was doing really well on semaglutide, but feels like she is now plateauing. Taking 0.5 mg, but interested in increasing to 1 mg. Will provide semaglutide 1 mg today, and submit for Wegovy 1 mg.Encouraged to continue with lifestyle modifications. 12/24/2023: Weight 204.1, BMI 30.14. Patient has gained since visit,, trying to get back on track. Was taking Wegovy 1 mg doing well, has been off for 6 weeks, so we will try to get her back on 1 mg and if not we will increase her to Wegovy 1.7 mg. Educated on proper use, side effects, long-term risk. 03/05/2024: Weight 203, BMI 30. Taking Wegovy 1.7 mg, will continue for another 4 weeks, and then consider increasing to 2.4 mg. If still at a plateau, consider switching over to Zepbound. Implementing more resistance training, and higher protein. Body scan reviewed today 04/02/2024: Weight 199, BMI 29: Patient congratulated on effort, continuing to lose slow, steady weight. Continue with Wegovy 1.7 mg. Encouraged to increase more resistance training, protein, and water intake. Follow-up in 4 weeks, could consider increasing Wegovy to 2.4 mg, or continuing with dose. 05/08/2024: Weight 198, BMI 29.25. Patient continuing to walk. Exercise otherwise limited due to right shoulder pain for which she is following with a chiropractor. Continue Wegovy but increase to 2.4 mg. If no improvement, consider switching over to Zepbound. Following up for physical in 1 month. 06/10/2024: Weight 201, BMI 29.74. Patient sought a plateau, will discontinue Wegovy, switch to Zepbound 2.5 mg. Discussed proper use, side effects. Follow-up in 4 to 6 weeks. #Patient also has some concerns regarding thinning of hair. Thyroid within normal limits. States that it is her also in her family. Did discuss possible dermatology referral, or PRP injections through our [facility]. # Migraines: X 3 months. Adequate nutrition/hydration. Ibuprofen as needed, no red flag symptoms. Separate control, migraines have been worse since then. She is not interested in getting back on control. Symptoms persisting, so trial sumatriptan 25 mg, repeating dose after 2 hours if symptoms persist. Discussed proper use, side effects. If no improvement could consider alternative abortive/preventativ e therapies or imaging. #Patient taken Lexapro. No concerns at this time. # Hyperlipidemia: Labs from 08/26/2022 showing total cholesterol 294, triglycerides 323, LDL 169. Lipid panel from 12/25/2023 showing no improvement in cholesterol around 290, but improvement in triglycerides at 185, LDL 177.Based on cholesterol being 290, and cardiovascular risk factors will start rosuvastatin 10 mg, Due for repeat lipid panel to assess efficacy/compliance of medication. Will order today. We discussed lifestyle factors, she is eating a lot of shrimp, and red meat. Discussed fish, fish oil, [place]'s, healthy fats. # Right shoulder pain: X 6 months, followed with a chiropractor and massage therapist without significant improvement. Will start with x-rays. Most likely will need physical therapy, Ortho referral, or further imaging. Discussed conservative treatments. Follow-up in 4 to 6 weeks for weight management. In the meantime x-ray of the right shoulder, and blood work. Will also assess efficacy/compliance of sumatriptan. Patient seen and examined. Comprehensive discussion was done on the following. 1. Nutrition: It is important to follow a healthy diet based on lots of vegetables and legumes and good fat. Avoid processed food and processed carbohydrates. Prepare your own meals. Read labels and avoid high fructose corn syrup, processed chemicals added to increase shelf life and preprepared meals. Avoid fast foods. Eat slowly and plan meals for a week. Try to count calories and be mindful off daily calorie intake. Get into the habit of keeping an eye on your weight by using an appropriate scale. Learn to log exercise and discussed fitness Apps like [employer] which can help keep log off calories taken versus calories burned. Local food should be preferred. Discussed Dirty Dozen Versus Clean Fifteen. Discussed healthy supplements like fish oil, Tumeric, Curcumin, Melatonin, Resveratrol, Probiotics, Vitamin-D, Alpha-Lipoic acid, Vitamin-D and coconut oil. 2. It is important to exercise regularly. Is a good habit to walk at least 30 minutes a day. Gentle weightlifting with standard precautions to protect the back. Finding activity like cycling or hiking and get into the habit of engaging in it. Stretching before and after the exercises important. It is also important to contact me if there are any problems like shortness of breath, chest pain, back pain and joint or muscle pain associated with the exercise. 3. Discussed age appropriate screening guidelines. Colonoscopy needs to start at age 50 with stool for occult blood as appropriate. There is a new test that can test for genetic abnormalities in the stool sample, Cologuard. This would not replace a colonoscopy but could be used as a screening tool for patients who do not want a colonoscopy. We discussed the importance of early detection of colon cancer. 4. Discussed current guidelines with respect to breast examination, mammogram and pap smear for early detection of breast and cervical cancer. Patient advised to follow up with these appointments. 5. Discussed safe driving and no use of smart phone while driving 6. Age-appropriate immunizations were discussed. A tetanus booster is needed every 10 years. Flu vaccine is recommended every year just before the start of the flu season. Shingles vaccine is recommended after age 50 but not all insurances cover it. Pneumonia vaccine is given after age 65 unless there are certain comorbidities for which it is started earlier. 7. Diagnostic labs were discussed. These could include/not limited to CBC CMP and lipids with fasting blood glucose and insulin levels. Vitamin D and hemoglobin A1c testing might be appropriate. All quetsions answered to patients satisfaction. Patient verbalized understanding of diagnosis and treatments explained. To call sooner prior to next visit it any questions/concerns arise. Case discussed with collaborating physician Riley Quintero who reviewed the assessment and plan. Chart, medications, labs, vital signs reviewed. Dictation was accomplished with the use of [employer] voice recognition software, prone to medical misidentifications and grammatical errors. This is unintentional and the practitioner does try to identify and correct these, but some could still be present. Please do not hesitate to contact practitioner for clarification. 05/08/2024 Mixed hyperlipidemia (ICD-10 - E78.2) 10/03/22: Weight 211, BMI 31.16- educated extensively on lifestyle modifications including high-protein, low carbohydrate, healthy fat, exercise, water intake, sleep hygiene, and stress relief. Patient will work on life so modifications of the next four weeks. Interested in weight loss medications. Start with Topamax 25 mg. Patient educated cannot drink alcohol on this medication. Most recent labs reviewed showing hyperlipidemia, without any insulin/diabetes concern. Patient educated on fish oil, diet, exercise. At next visit, will obtain EKG, and start phentermine 15 mg if EKG without concern. No concern for at this time. 10/31/22: weight 212, BMI 31.3- educated on lifestyle modifications. Patient went to [place], and then went to [place] and states that she has been traveling a lot and drinking more than usual. She is ready to get back on track. She has been walking more recently and focusing on portion control as well as eating earlier in the evening. She does feel some appetite suppression on metformin but is interested in starting an additional medication. She did not tolerate Topamax well. EKG's office today within normal limits. Will start phentermine 15 mg. Patient educated on side effects as well as proper use. Will follow-up in four weeks, sooner as needed.Encouraged to increase water intake. 12/05/22: weight 211.5, BMI 31.23- educated extensive and lifestyle modifications. Patient was congratulated on efforts. Taking phentermine 15 mg with compliance, without any side effects. Interested in increasing dose of 30 mg. If patient continues to have minimal weight loss, could consider GLP-1 injection such as Wegovy next visit, as at that time, patient will have three consecutive months of trying to lose weight. Patient understanding and aware of this plan. Educated to increase more formal exercise. 01/09/2023: Weight 207.3, BMI 30.61-patient congratulated on efforts, has been losing some weight. Taking phentermine 30 mg with compliance, without any side effects. Is noticing more appetite suppression on 30 mg then 15. Interested in increasing dose to 37.5. We did have a discussion about possibly switching to GLP-1 such as Wegovy, but having difficulty with supply at this time therefore we will continue phentermine 37.5 at this time. Did talk about compounded semaglutide as well, but patient states she will find it difficult to come to the office once weekly. Will increase to phentermine 37.5, and add Topamax. Patient also does admit to occasional headaches and history of migraines and this could benefit that as well. Educated on proper use, as well as side effects. 02/08/2023: Weight 205, BMI 30.27. Patient congratulated on effort. Taking phentermine 37.5, and Topamax. Noticing some appetite suppression but not significant effect. Interested in tapering off, and starting a different medication such as GLP-1 injection. Patient aware of the national shortage difficulty, but is interested in Saxenda. Did discuss proper use, and side effects of medication. We will taper phentermine, and start Saxenda. 03/12/2023: Weight 207.1, BMI 30.58. Patient expresses frustration given her current circumstances. She has not been able to obtain Saxenda from the pharmacy despite insurance approval. Currently taking phentermine 15 mg with no effect despite maintaining lifestyle modifications. Goals reevaluated and discussed incorporating increased intensity exercise in addition to walking as tolerated. Contacted [facility] pharmacy in [place] who states they cannot dispense Saxenda secondary to supply issues. Called [facility] specialty pharmacy, and Saxenda continues to be on backorder until unknown date. Will send to other [facility] pharmacy in [place], but patient will continue to call pharmacies to see who has availability, and happy to send to pharmacy when she can find one. She is understanding and aware. 04/12/2023: Weight 209 pounds, BMI 30.86. Patient did gain weight, but upon review of body composition scan she did gain 3 pounds of muscle, and lost 1 pound of fat. She was congratulated. Has been working hard with exercise and focusing on portion control but she states that she is going in the opposite direction because she is off of phentermine. Is interested in weight loss medications, tried sending Saxenda but was unable to obtain due to supply concern. We will start compounded semaglutide 0.25 mg today, and follow-up in 4 weeks. Also sending for Wegovy 0.5 mg and she is going to call the pharmacy to see if she can find although she is aware of the national shortage. 07/24/2023: Weight 199.6, BMI 29.47. Patient is welcome back to the practice, has not followed up since April due to insurance concerns, but is now following with us today. Patient was doing really well on semaglutide, but feels like she is now plateauing. Taking 0.5 mg, but interested in increasing to 1 mg. Will provide semaglutide 1 mg today, and submit for Wegovy 1 mg.Encouraged to continue with lifestyle modifications. 12/24/2023: Weight 204.1, BMI 30.14. Patient has gained since visit,, trying to get back on track. Was taking Wegovy 1 mg doing well, has been off for 6 weeks, so we will try to get her back on 1 mg and if not we will increase her to Wegovy 1.7 mg. Educated on proper use, side effects, long-term risk. 03/05/2024: Weight 203, BMI 30. Taking Wegovy 1.7 mg, will continue for another 4 weeks, and then consider increasing to 2.4 mg. If still at a plateau, consider switching over to Zepbound. Implementing more resistance training, and higher protein. Body scan reviewed today 04/02/2024: Weight 199, BMI 29: Patient congratulated on effort, continuing to lose slow, steady weight. Continue with Wegovy 1.7 mg. Encouraged to increase more resistance training, protein, and water intake. Follow-up in 4 weeks, could consider increasing Wegovy to 2.4 mg, or continuing with dose. 05/08/2024: Weight 198, BMI 29.25. Patient continuing to walk. Exercise otherwise limited due to right shoulder pain for which she is following with a chiropractor. Continue Wegovy but increase to 2.4 mg. If no improvement, consider switching over to Zepbound. Following up for physical in 1 month. #Patient also has some concerns regarding thinning of hair. Thyroid within normal limits. States that it is her also in her family. Did discuss possible dermatology referral, or PRP injections through our [facility]. # Migraines: X 3 months. Adequate nutrition/hydration. Stopped control 3 months ago at that time. When she was 16 she was put on control due to migraines. Following with her [facility] to potentially try getting back on it again. Ibuprofen as needed, no red flag symptoms. If symptoms persist, could consider abortive migraine management/imaging. #Patient taken Lexapro. No concerns at this time. # Hyperlipidemia: Labs from 08/26/2022 showing total cholesterol 294, triglycerides 323, LDL 169. Lipid panel from 12/25/2023 showing no improvement in cholesterol around 290, but improvement in triglycerides at 185, LDL 177.Based on cholesterol being 290, and cardiovascular risk factors will start rosuvastatin 10 mg, follow-up in the next 4 to 6 months for lipid panel and considering tapering down medication to 5 mg as patient does not want to be on this for long-term. We discussed lifestyle factors, she is eating a lot of shrimp, and red meat. Discussed fish, fish oil, [place]'s, healthy fats. Patient to follow-up for complete physical in June, sooner as needed. Weight management in 4 weeks. Time spent with patient 30 minutes with greater than 50% of patient occasion and care coordination. All quetsions answered to patients satisfaction. Patient verbalized understanding of diagnosis and treatments explained. To call sooner prior to next visit it any questions/concerns arise. Case discussed with collaborating physician Riley Quintero who reviewed the assessment and plan. Chart, medications, labs, vital signs reviewed. Dictation was accomplished with the use of [employer] voice recognition software, prone to medical misidentifications and grammatical errors. This is unintentional and the practitioner does try to identify and correct these, but some could still be present. Please do not hesitate to contact practitioner for clarification. 06/10/2024 Pain, joint, shoulder, right (ICD-10 - M25.511) Glenis is a pleasant 43-year-old female presents the office for complete physical exam. Patient is up-to-date on all routine screenings, just had a mammogram this year, Pap smear this year. Follows with [facility] for both of those things. Declines flu and COVID vaccines, up-to-date on tetanus. Healthcare proxy is her boyfriend Cristino, and her mom Yeimi, which was filled out on 06/10/2024. PHQ-9 with a total score of 5, no concern regarding mental health at this time. 10/03/22: Weight 211, BMI 31.16- educated extensively on lifestyle modifications including high-protein, low carbohydrate, healthy fat, exercise, water intake, sleep hygiene, and stress relief. Patient will work on life so modifications of the next four weeks. Interested in weight loss medications. Start with Topamax 25 mg. Patient educated cannot drink alcohol on this medication. Most recent labs reviewed showing hyperlipidemia, without any insulin/diabetes concern. Patient educated on fish oil, diet, exercise. At next visit, will obtain EKG, and start phentermine 15 mg if EKG without concern. No concern for at this time. 10/31/22: weight 212, BMI 31.3- educated on lifestyle modifications. Patient went to [place], and then went to [place] and states that she has been traveling a lot and drinking more than usual. She is ready to get back on track. She has been walking more recently and focusing on portion control as well as eating earlier in the evening. She does feel some appetite suppression on metformin but is interested in starting an additional medication. She did not tolerate Topamax well. EKG's office today within normal limits. Will start phentermine 15 mg. Patient educated on side effects as well as proper use. Will follow-up in four weeks, sooner as needed.Encouraged to increase water intake. 12/05/22: weight 211.5, BMI 31.23- educated extensive and lifestyle modifications. Patient was congratulated on efforts. Taking phentermine 15 mg with compliance, without any side effects. Interested in increasing dose of 30 mg. If patient continues to have minimal weight loss, could consider GLP-1 injection such as Wegovy next visit, as at that time, patient will have three consecutive months of trying to lose weight. Patient understanding and aware of this plan. Educated to increase more formal exercise. 01/09/2023: Weight 207.3, BMI 30.61-patient congratulated on efforts, has been losing some weight. Taking phentermine 30 mg with compliance, without any side effects. Is noticing more appetite suppression on 30 mg then 15. Interested in increasing dose to 37.5. We did have a discussion about possibly switching to GLP-1 such as Wegovy, but having difficulty with supply at this time therefore we will continue phentermine 37.5 at this time. Did talk about compounded semaglutide as well, but patient states she will find it difficult to come to the office once weekly. Will increase to phentermine 37.5, and add Topamax. Patient also does admit to occasional headaches and history of migraines and this could benefit that as well. Educated on proper use, as well as side effects. 02/08/2023: Weight 205, BMI 30.27. Patient congratulated on effort. Taking phentermine 37.5, and Topamax. Noticing some appetite suppression but not significant effect. Interested in tapering off, and starting a different medication such as GLP-1 injection. Patient aware of the national shortage difficulty, but is interested in Saxenda. Did discuss proper use, and side effects of medication. We will taper phentermine, and start Saxenda. 03/12/2023: Weight 207.1, BMI 30.58. Patient expresses frustration given her current circumstances. She has not been able to obtain Saxenda from the pharmacy despite insurance approval. Currently taking phentermine 15 mg with no effect despite maintaining lifestyle modifications. Goals reevaluated and discussed incorporating increased intensity exercise in addition to walking as tolerated. Contacted [facility] pharmacy in [place] who states they cannot dispense Saxenda secondary to supply issues. Called [facility] specialty pharmacy, and Saxenda continues to be on backorder until unknown date. Will send to other [facility] pharmacy in [place], but patient will continue to call pharmacies to see who has availability, and happy to send to pharmacy when she can find one. She is understanding and aware. 04/12/2023: Weight 209 pounds, BMI 30.86. Patient did gain weight, but upon review of body composition scan she did gain 3 pounds of muscle, and lost 1 pound of fat. She was congratulated. Has been working hard with exercise and focusing on portion control but she states that she is going in the opposite direction because she is off of phentermine. Is interested in weight loss medications, tried sending Saxenda but was unable to obtain due to supply concern. We will start compounded semaglutide 0.25 mg today, and follow-up in 4 weeks. Also sending for Wegovy 0.5 mg and she is going to call the pharmacy to see if she can find although she is aware of the national shortage. 07/24/2023: Weight 199.6, BMI 29.47. Patient is welcome back to the practice, has not followed up since April due to insurance concerns, but is now following with us today. Patient was doing really well on semaglutide, but feels like she is now plateauing. Taking 0.5 mg, but interested in increasing to 1 mg. Will provide semaglutide 1 mg today, and submit for Wegovy 1 mg.Encouraged to continue with lifestyle modifications. 12/24/2023: Weight 204.1, BMI 30.14. Patient has gained since visit,, trying to get back on track. Was taking Wegovy 1 mg doing well, has been off for 6 weeks, so we will try to get her back on 1 mg and if not we will increase her to Wegovy 1.7 mg. Educated on proper use, side effects, long-term risk. 03/05/2024: Weight 203, BMI 30. Taking Wegovy 1.7 mg, will continue for another 4 weeks, and then consider increasing to 2.4 mg. If still at a plateau, consider switching over to Zepbound. Implementing more resistance training, and higher protein. Body scan reviewed today 04/02/2024: Weight 199, BMI 29: Patient congratulated on effort, continuing to lose slow, steady weight. Continue with Wegovy 1.7 mg. Encouraged to increase more resistance training, protein, and water intake. Follow-up in 4 weeks, could consider increasing Wegovy to 2.4 mg, or continuing with dose. 05/08/2024: Weight 198, BMI 29.25. Patient continuing to walk. Exercise otherwise limited due to right shoulder pain for which she is following with a chiropractor. Continue Wegovy but increase to 2.4 mg. If no improvement, consider switching over to Zepbound. Following up for physical in 1 month. 06/10/2024: Weight 201, BMI 29.74. Patient sought a plateau, will discontinue Wegovy, switch to Zepbound 2.5 mg. Discussed proper use, side effects. Follow-up in 4 to 6 weeks. #Patient also has some concerns regarding thinning of hair. Thyroid within normal limits. States that it is her also in her family. Did discuss possible dermatology referral, or PRP injections through our [facility]. # Migraines: X 3 months. Adequate nutrition/hydration. Ibuprofen as needed, no red flag symptoms. Separate control, migraines have been worse since then. She is not interested in getting back on control. Symptoms persisting, so trial sumatriptan 25 mg, repeating dose after 2 hours if symptoms persist. Discussed proper use, side effects. If no improvement could consider alternative abortive/preventativ e therapies or imaging. #Patient taken Lexapro. No concerns at this time. # Hyperlipidemia: Labs from 08/26/2022 showing total cholesterol 294, triglycerides 323, LDL 169. Lipid panel from 12/25/2023 showing no improvement in cholesterol around 290, but improvement in triglycerides at 185, LDL 177.Based on cholesterol being 290, and cardiovascular risk factors will start rosuvastatin 10 mg, Due for repeat lipid panel to assess efficacy/compliance of medication. Will order today. We discussed lifestyle factors, she is eating a lot of shrimp, and red meat. Discussed fish, fish oil, [place], healthy fats. # Right shoulder pain: X 6 months, followed with a chiropractor and massage therapist without significant improvement. Will start with x-rays. Most likely will need physical therapy, Ortho referral, or further imaging. Discussed conservative treatments. Follow-up in 4 to 6 weeks for weight management. In the meantime x-ray of the right shoulder, and blood work. Will also assess efficacy/compliance of sumatriptan. Patient seen and examined. Comprehensive discussion was done on the following. 1. Nutrition: It is important to follow a healthy diet based on lots of vegetables and legumes and good fat. Avoid processed food and processed carbohydrates. Prepare your own meals. Read labels and avoid high fructose corn syrup, processed chemicals added to increase shelf life and preprepared meals. Avoid fast foods. Eat slowly and plan meals for a week. Try to count calories and be mindful off daily calorie intake. Get into the habit of keeping an eye on your weight by using an appropriate scale. Learn to log exercise and discussed fitness Apps like [employer] which can help keep log off calories taken versus calories burned. Local food should be preferred. Discussed Dirty Dozen Versus Clean Fifteen. Discussed healthy supplements like fish oil, Tumeric, Curcumin, Melatonin, Resveratrol, Probiotics, Vitamin-D, Alpha-Lipoic acid, Vitamin-D and coconut oil. 2. It is important to exercise regularly. Is a good habit to walk at least 30 minutes a day. Gentle weightlifting with standard precautions to protect the back. Finding activity like cycling or hiking and get into the habit of engaging in it. Stretching before and after the exercises important. It is also important to contact me if there are any problems like shortness of breath, chest pain, back pain and joint or muscle pain associated with the exercise. 3. Discussed age appropriate screening guidelines. Colonoscopy needs to start at age 50 with stool for occult blood as appropriate. There is a new test that can test for genetic abnormalities in the stool sample, Cologuard. This would not replace a colonoscopy but could be used as a screening tool for patients who do not want a colonoscopy. We discussed the importance of early detection of colon cancer. 4. Discussed current guidelines with respect to breast examination, mammogram and pap smear for early detection of breast and cervical cancer. Patient advised to follow up with these appointments. 5. Discussed safe driving and no use of smart phone while driving 6. Age-appropriate immunizations were discussed. A tetanus booster is needed every 10 years. Flu vaccine is recommended every year just before the start of the flu season. Shingles vaccine is recommended after age 50 but not all insurances cover it. Pneumonia vaccine is given after age 65 unless there are certain comorbidities for which it is started earlier. 7. Diagnostic labs were discussed. These could include/not limited to CBC CMP and lipids with fasting blood glucose and insulin levels. Vitamin D and hemoglobin A1c testing might be appropriate. All quetsions answered to patients satisfaction. Patient verbalized understanding of diagnosis and treatments explained. To call sooner prior to next visit it any questions/concerns arise. Case discussed with collaborating physician Riley Quintero who reviewed the assessment and plan. Chart, medications, labs, vital signs reviewed. Dictation was accomplished with the use of [employer] voice recognition software, prone to medical misidentifications and grammatical errors. This is unintentional and the practitioner does try to identify and correct these, but some could still be present. Please do not hesitate to contact practitioner for clarification. 07/28/2024 Nutritional counseling (ICD-10 - Z71.3) 10/03/22: Weight 211, BMI 31.16- educated extensively on lifestyle modifications including high-protein, low carbohydrate, healthy fat, exercise, water intake, sleep hygiene, and stress relief. Patient will work on life so modifications of the next four weeks. Interested in weight loss medications. Start with Topamax 25 mg. Patient educated cannot drink alcohol on this medication. Most recent labs reviewed showing hyperlipidemia, without any insulin/diabetes concern. Patient educated on fish oil, diet, exercise. At next visit, will obtain EKG, and start phentermine 15 mg if EKG without concern. No concern for at this time. 10/31/22: weight 212, BMI 31.3- educated on lifestyle modifications. Patient went to [place], and then went to [place] and states that she has been traveling a lot and drinking more than usual. She is ready to get back on track. She has been walking more recently and focusing on portion control as well as eating earlier in the evening. She does feel some appetite suppression on metformin but is interested in starting an additional medication. She did not tolerate Topamax well. EKG's office today within normal limits. Will start phentermine 15 mg. Patient educated on side effects as well as proper use. Will follow-up in four weeks, sooner as needed.Encouraged to increase water intake. 12/05/22: weight 211.5, BMI 31.23- educated extensive and lifestyle modifications. Patient was congratulated on efforts. Taking phentermine 15 mg with compliance, without any side effects. Interested in increasing dose of 30 mg. If patient continues to have minimal weight loss, could consider GLP-1 injection such as Wegovy next visit, as at that time, patient will have three consecutive months of trying to lose weight. Patient understanding and aware of this plan. Educated to increase more formal exercise. 01/09/2023: Weight 207.3, BMI 30.61-patient congratulated on efforts, has been losing some weight. Taking phentermine 30 mg with compliance, without any side effects. Is noticing more appetite suppression on 30 mg then 15. Interested in increasing dose to 37.5. We did have a discussion about possibly switching to GLP-1 such as Wegovy, but having difficulty with supply at this time therefore we will continue phentermine 37.5 at this time. Did talk about compounded semaglutide as well, but patient states she will find it difficult to come to the office once weekly. Will increase to phentermine 37.5, and add Topamax. Patient also does admit to occasional headaches and history of migraines and this could benefit that as well. Educated on proper use, as well as side effects. 02/08/2023: Weight 205, BMI 30.27. Patient congratulated on effort. Taking phentermine 37.5, and Topamax. Noticing some appetite suppression but not significant effect. Interested in tapering off, and starting a different medication such as GLP-1 injection. Patient aware of the national shortage difficulty, but is interested in Saxenda. Did discuss proper use, and side effects of medication. We will taper phentermine, and start Saxenda. 03/12/2023: Weight 207.1, BMI 30.58. Patient expresses frustration given her current circumstances. She has not been able to obtain Saxenda from the pharmacy despite insurance approval. Currently taking phentermine 15 mg with no effect despite maintaining lifestyle modifications. Goals reevaluated and discussed incorporating increased intensity exercise in addition to walking as tolerated. Contacted [facility] pharmacy in [place] who states they cannot dispense Saxenda secondary to supply issues. Called [facility] specialty pharmacy, and Saxenda continues to be on backorder until unknown date. Will send to other [facility] pharmacy in [place], but patient will continue to call pharmacies to see who has availability, and happy to send to pharmacy when she can find one. She is understanding and aware. 04/12/2023: Weight 209 pounds, BMI 30.86. Patient did gain weight, but upon review of body composition scan she did gain 3 pounds of muscle, and lost 1 pound of fat. She was congratulated. Has been working hard with exercise and focusing on portion control but she states that she is going in the opposite direction because she is off of phentermine. Is interested in weight loss medications, tried sending Saxenda but was unable to obtain due to supply concern. We will start compounded semaglutide 0.25 mg today, and follow-up in 4 weeks. Also sending for Wegovy 0.5 mg and she is going to call the pharmacy to see if she can find although she is aware of the national shortage. 07/24/2023: Weight 199.6, BMI 29.47. Patient is welcome back to the practice, has not followed up since April due to insurance concerns, but is now following with us today. Patient was doing really well on semaglutide, but feels like she is now plateauing. Taking 0.5 mg, but interested in increasing to 1 mg. Will provide semaglutide 1 mg today, and submit for Wegovy 1 mg.Encouraged to continue with lifestyle modifications. 12/24/2023: Weight 204.1, BMI 30.14. Patient has gained since visit,, trying to get back on track. Was taking Wegovy 1 mg doing well, has been off for 6 weeks, so we will try to get her back on 1 mg and if not we will increase her to Wegovy 1.7 mg. Educated on proper use, side effects, long-term risk. 03/05/2024: Weight 203, BMI 30. Taking Wegovy 1.7 mg, will continue for another 4 weeks, and then consider increasing to 2.4 mg. If still at a plateau, consider switching over to Zepbound. Implementing more resistance training, and higher protein. Body scan reviewed today 04/02/2024: Weight 199, BMI 29: Patient congratulated on effort, continuing to lose slow, steady weight. Continue with Wegovy 1.7 mg. Encouraged to increase more resistance training, protein, and water intake. Follow-up in 4 weeks, could consider increasing Wegovy to 2.4 mg, or continuing with dose. 05/08/2024: Weight 198, BMI 29.25. Patient continuing to walk. Exercise otherwise limited due to right shoulder pain for which she is following with a chiropractor. Continue Wegovy but increase to 2.4 mg. If no improvement, consider switching over to Zepbound. Following up for physical in 1 month. 06/10/2024: Weight 201, BMI 29.74. Patient sought a plateau, will discontinue Wegovy, switch to Zepbound 2.5 mg. Discussed proper use, side effects. Follow-up in 4 to 6 weeks. 07/28/2024: Weight 198, BMI 29. Weight plateaued since last visit. Switched over to Zepbound 2.5 mg, increased to 5 mg. Her grandmother just passed, so she has been planning arrangements and exercises been off. 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 #Patient also has some concerns regarding thinning of hair. Thyroid within normal limits. States that it is her also in her family. Did discuss possible dermatology referral, or PRP injections through our [facility]. # Migraines: X 3 months. Adequate nutrition/hydration. Ibuprofen as needed, no red flag symptoms. Separate control, migraines have been worse since then. She is not interested in getting back on control. Symptoms persisting, so trial sumatriptan 25 mg, repeating dose after 2 hours if symptoms persist. Discussed proper use, side effects. If no improvement could consider alternative abortive/preventativ e therapies or imaging. #Patient taken Lexapro. No concerns at this time. # Hyperlipidemia: Labs from 08/26/2022 showing total cholesterol 294, triglycerides 323, LDL 169. Lipid panel from 12/25/2023 showing no improvement in cholesterol around 290, but improvement in triglycerides at 185, LDL 177.Based on cholesterol being 290, and cardiovascular risk factors will start rosuvastatin 10 mg, Due for repeat lipid panel to assess efficacy/compliance of medication. Will order today. We discussed lifestyle factors, she is eating a lot of shrimp, and red meat. Discussed fish, fish oil, [place], healthy fats. # Right shoulder pain: X 6 months, followed with a chiropractor and massage therapist without significant improvement. Will start with x-rays. Most likely will need physical therapy, Ortho referral, or further imaging. Discussed conservative treatments.Patient is updated x-ray images of order. This with patient 30 minutes with greater than 50% patient education and coordination. Work prior to next visit. Follow-up in 6 weeks, sooner as needed All quetsions answered to patients satisfaction. Patient verbalized understanding of diagnosis and treatments explained. To call sooner prior to next visit it any questions/concerns arise. Case discussed with collaborating physician Riley Quintero who reviewed the assessment and plan. Chart, medications, labs, vital signs reviewed. Dictation was accomplished with the use of [employer] voice recognition software, prone to medical misidentifications and grammatical errors. This is unintentional and the practitioner does try to identify and correct these, but some could still be present. Please do not hesitate to contact practitioner for clarification. 09/10/2024 Hair loss (ICD-10 - L65.9) 10/03/22: Weight 211, BMI 31.16- educated extensively on lifestyle modifications including high-protein, low carbohydrate, healthy fat, exercise, water intake, sleep hygiene, and stress relief. Patient will work on life so modifications of the next four weeks. Interested in weight loss medications. Start with Topamax 25 mg. Patient educated cannot drink alcohol on this medication. Most recent labs reviewed showing hyperlipidemia, without any insulin/diabetes concern. Patient educated on fish oil, diet, exercise. At next visit, will obtain EKG, and start phentermine 15 mg if EKG without concern. No concern for at this time. 10/31/22: weight 212, BMI 31.3- educated on lifestyle modifications. Patient went to [place], and then went to [place] and states that she has been traveling a lot and drinking more than usual. She is ready to get back on track. She has been walking more recently and focusing on portion control as well as eating earlier in the evening. She does feel some appetite suppression on metformin but is interested in starting an additional medication. She did not tolerate Topamax well. EKG's office today within normal limits. Will start phentermine 15 mg. Patient educated on side effects as well as proper use. Will follow-up in four weeks, sooner as needed.Encouraged to increase water intake. 12/05/22: weight 211.5, BMI 31.23- educated extensive and lifestyle modifications. Patient was congratulated on efforts. Taking phentermine 15 mg with compliance, without any side effects. Interested in increasing dose of 30 mg. If patient continues to have minimal weight loss, could consider GLP-1 injection such as Wegovy next visit, as at that time, patient will have three consecutive months of trying to lose weight. Patient understanding and aware of this plan. Educated to increase more formal exercise. 01/09/2023: Weight 207.3, BMI 30.61-patient congratulated on efforts, has been losing some weight. Taking phentermine 30 mg with compliance, without any side effects. Is noticing more appetite suppression on 30 mg then 15. Interested in increasing dose to 37.5. We did have a discussion about possibly switching to GLP-1 such as Wegovy, but having difficulty with supply at this time therefore we will continue phentermine 37.5 at this time. Did talk about compounded semaglutide as well, but patient states she will find it difficult to come to the office once weekly. Will increase to phentermine 37.5, and add Topamax. Patient also does admit to occasional headaches and history of migraines and this could benefit that as well. Educated on proper use, as well as side effects. 02/08/2023: Weight 205, BMI 30.27. Patient congratulated on effort. Taking phentermine 37.5, and Topamax. Noticing some appetite suppression but not significant effect. Interested in tapering off, and starting a different medication such as GLP-1 injection. Patient aware of the national shortage difficulty, but is interested in Saxenda. Did discuss proper use, and side effects of medication. We will taper phentermine, and start Saxenda. 03/12/2023: Weight 207.1, BMI 30.58. Patient expresses frustration given her current circumstances. She has not been able to obtain Saxenda from the pharmacy despite insurance approval. Currently taking phentermine 15 mg with no effect despite maintaining lifestyle modifications. Goals reevaluated and discussed incorporating increased intensity exercise in addition to walking as tolerated. Contacted [facility] pharmacy in [place] who states they cannot dispense Saxenda secondary to supply issues. Called [facility] specialty pharmacy, and Saxenda continues to be on backorder until unknown date. Will send to other [facility] pharmacy in [place], but patient will continue to call pharmacies to see who has availability, and happy to send to pharmacy when she can find one. She is understanding and aware. 04/12/2023: Weight 209 pounds, BMI 30.86. Patient did gain weight, but upon review of body composition scan she did gain 3 pounds of muscle, and lost 1 pound of fat. She was congratulated. Has been working hard with exercise and focusing on portion control but she states that she is going in the opposite direction because she is off of phentermine. Is interested in weight loss medications, tried sending Saxenda but was unable to obtain due to supply concern. We will start compounded semaglutide 0.25 mg today, and follow-up in 4 weeks. Also sending for Wegovy 0.5 mg and she is going to call the pharmacy to see if she can find although she is aware of the national shortage. 07/24/2023: Weight 199.6, BMI 29.47. Patient is welcome back to the practice, has not followed up since April due to insurance concerns, but is now following with us today. Patient was doing really well on semaglutide, but feels like she is now plateauing. Taking 0.5 mg, but interested in increasing to 1 mg. Will provide semaglutide 1 mg today, and submit for Wegovy 1 mg.Encouraged to continue with lifestyle modifications. 12/24/2023: Weight 204.1, BMI 30.14. Patient has gained since visit,, trying to get back on track. Was taking Wegovy 1 mg doing well, has been off for 6 weeks, so we will try to get her back on 1 mg and if not we will increase her to Wegovy 1.7 mg. Educated on proper use, side effects, long-term risk. 03/05/2024: Weight 203, BMI 30. Taking Wegovy 1.7 mg, will continue for another 4 weeks, and then consider increasing to 2.4 mg. If still at a plateau, consider switching over to Zepbound. Implementing more resistance training, and higher protein. Body scan reviewed today 04/02/2024: Weight 199, BMI 29: Patient congratulated on effort, continuing to lose slow, steady weight. Continue with Wegovy 1.7 mg. Encouraged to increase more resistance training, protein, and water intake. Follow-up in 4 weeks, could consider increasing Wegovy to 2.4 mg, or continuing with dose. 05/08/2024: Weight 198, BMI 29.25. Patient continuing to walk. Exercise otherwise limited due to right shoulder pain for which she is following with a chiropractor. Continue Wegovy but increase to 2.4 mg. If no improvement, consider switching over to Zepbound. Following up for physical in 1 month. 06/10/2024: Weight 201, BMI 29.74. Patient sought a plateau, will discontinue Wegovy, switch to Zepbound 2.5 mg. Discussed proper use, side effects. Follow-up in 4 to 6 weeks. 07/28/2024: Weight 198, BMI 29. Weight plateaued since last visit. Switched over to Zepbound 2.5 mg, increased to 5 mg. Her grandmother just passed, so she has been planning arrangements and exercises been off. 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 09/10/2024: Weight 197, BMI 29. Discontinuing Zepbound 2 weeks ago secondary to significant hair loss. Will hold off on all weight loss medications and follow-up in 4 weeks. Will obtain blood work prior # Hair loss: Ordering CBC, iron, TIBC, ferritin, ABHAY, CRP, estrogen, progesterone, testosterone, DHEA, TSH, T3, T4, vitamin D, and vitamin B12.Patient taking NutrAFUL. Consider dermatology referral. # Migraines: Adequate nutrition/hydration. Ibuprofen as needed, no red flag symptoms. Separate control, migraines have been worse since then. She is not interested in getting back on control. Taking sumatriptan as needed. If no improvement could consider alternative abortive/preventativ e therapies or imaging. #Patient taken Lexapro. No concerns at this time. # Hyperlipidemia: Labs from 08/26/2022 showing total cholesterol 294, triglycerides 323, LDL 169. Lipid panel from 12/25/2023 showing no improvement in cholesterol around 290, but improvement in triglycerides at 185, LDL 177.Based on cholesterol being 290, and cardiovascular risk factors Rosuvastatin 10 mg initiated. Repeating lipid panel. # Right shoulder pain: X 6 months, followed with a chiropractor and massage therapist without significant improvement.Ordered x-rays, although patient did not obtain. Follow-up in 4 weeks, lab in the meantime. All quetsions answered to patients satisfaction. Patient verbalized understanding of diagnosis and treatments explained. To call sooner prior to next visit it any questions/concerns arise. Case discussed with collaborating physician Riley Quintero who reviewed the assessment and plan. Chart, medications, labs, vital signs reviewed. Dictation was accomplished with the use of [employer] voice recognition software, prone to medical misidentifications and grammatical errors. This is unintentional and the practitioner does try to identify and correct these, but some could still be present. Please do not hesitate to contact practitioner for clarification. 11/17/2024 BMI 32.0-32.9,adult (ICD-10 - Z68.32) 10/03/22: Weight 211, BMI 31.16- educated extensively on lifestyle modifications including high-protein, low carbohydrate, healthy fat, exercise, water intake, sleep hygiene, and stress relief. Patient will work on life so modifications of the next four weeks. Interested in weight loss medications. Start with Topamax 25 mg. Patient educated cannot drink alcohol on this medication. Most recent labs reviewed showing hyperlipidemia, without any insulin/diabetes concern. Patient educated on fish oil, diet, exercise. At next visit, will obtain EKG, and start phentermine 15 mg if EKG without concern. No concern for at this time. 10/31/22: weight 212, BMI 31.3- educated on lifestyle modifications. Patient went to [place], and then went to [place] and states that she has been traveling a lot and drinking more than usual. She is ready to get back on track. She has been walking more recently and focusing on portion control as well as eating earlier in the evening. She does feel some appetite suppression on metformin but is interested in starting an additional medication. She did not tolerate Topamax well. EKG's office today within normal limits. Will start phentermine 15 mg. Patient educated on side effects as well as proper use. Will follow-up in four weeks, sooner as needed.Encouraged to increase water intake. 12/05/22: weight 211.5, BMI 31.23- educated extensive and lifestyle modifications. Patient was congratulated on efforts. Taking phentermine 15 mg with compliance, without any side effects. Interested in increasing dose of 30 mg. If patient continues to have minimal weight loss, could consider GLP-1 injection such as Wegovy next visit, as at that time, patient will have three consecutive months of trying to lose weight. Patient understanding and aware of this plan. Educated to increase more formal exercise. 01/09/2023: Weight 207.3, BMI 30.61-patient congratulated on efforts, has been losing some weight. Taking phentermine 30 mg with compliance, without any side effects. Is noticing more appetite suppression on 30 mg then 15. Interested in increasing dose to 37.5. We did have a discussion about possibly switching to GLP-1 such as Wegovy, but having difficulty with supply at this time therefore we will continue phentermine 37.5 at this time. Did talk about compounded semaglutide as well, but patient states she will find it difficult to come to the office once weekly. Will increase to phentermine 37.5, and add Topamax. Patient also does admit to occasional headaches and history of migraines and this could benefit that as well. Educated on proper use, as well as side effects. 02/08/2023: Weight 205, BMI 30.27. Patient congratulated on effort. Taking phentermine 37.5, and Topamax. Noticing some appetite suppression but not significant effect. Interested in tapering off, and starting a different medication such as GLP-1 injection. Patient aware of the national shortage difficulty, but is interested in Saxenda. Did discuss proper use, and side effects of medication. We will taper phentermine, and start Saxenda. 03/12/2023: Weight 207.1, BMI 30.58. Patient expresses frustration given her current circumstances. She has not been able to obtain Saxenda from the pharmacy despite insurance approval. Currently taking phentermine 15 mg with no effect despite maintaining lifestyle modifications. Goals reevaluated and discussed incorporating increased intensity exercise in addition to walking as tolerated. Contacted [facility] pharmacy in [place] who states they cannot dispense Saxenda secondary to supply issues. Called [facility] specialty pharmacy, and Saxenda continues to be on backorder until unknown date. Will send to other [facility] pharmacy in [place], but patient will continue to call pharmacies to see who has availability, and happy to send to pharmacy when she can find one. She is understanding and aware. 04/12/2023: Weight 209 pounds, BMI 30.86. Patient did gain weight, but upon review of body composition scan she did gain 3 pounds of muscle, and lost 1 pound of fat. She was congratulated. Has been working hard with exercise and focusing on portion control but she states that she is going in the opposite direction because she is off of phentermine. Is interested in weight loss medications, tried sending Saxenda but was unable to obtain due to supply concern. We will start compounded semaglutide 0.25 mg today, and follow-up in 4 weeks. Also sending for Wegovy 0.5 mg and she is going to call the pharmacy to see if she can find although she is aware of the national shortage. 07/24/2023: Weight 199.6, BMI 29.47. Patient is welcome back to the practice, has not followed up since April due to insurance concerns, but is now following with us today. Patient was doing really well on semaglutide, but feels like she is now plateauing. Taking 0.5 mg, but interested in increasing to 1 mg. Will provide semaglutide 1 mg today, and submit for Wegovy 1 mg.Encouraged to continue with lifestyle modifications. 12/24/2023: Weight 204.1, BMI 30.14. Patient has gained since visit,, trying to get back on track. Was taking Wegovy 1 mg doing well, has been off for 6 weeks, so we will try to get her back on 1 mg and if not we will increase her to Wegovy 1.7 mg. Educated on proper use, side effects, long-term risk. 03/05/2024: Weight 203, BMI 30. Taking Wegovy 1.7 mg, will continue for another 4 weeks, and then consider increasing to 2.4 mg. If still at a plateau, consider switching over to Zepbound. Implementing more resistance training, and higher protein. Body scan reviewed today 04/02/2024: Weight 199, BMI 29: Patient congratulated on effort, continuing to lose slow, steady weight. Continue with Wegovy 1.7 mg. Encouraged to increase more resistance training, protein, and water intake. Follow-up in 4 weeks, could consider increasing Wegovy to 2.4 mg, or continuing with dose. 05/08/2024: Weight 198, BMI 29.25. Patient continuing to walk. Exercise otherwise limited due to right shoulder pain for which she is following with a chiropractor. Continue Wegovy but increase to 2.4 mg. If no improvement, consider switching over to Zepbound. Following up for physical in 1 month. 06/10/2024: Weight 201, BMI 29.74. Patient sought a plateau, will discontinue Wegovy, switch to Zepbound 2.5 mg. Discussed proper use, side effects. Follow-up in 4 to 6 weeks. 07/28/2024: Weight 198, BMI 29. Weight plateaued since last visit. Switched over to Zepbound 2.5 mg, increased to 5 mg. Her grandmother just passed, so she has been planning arrangements and exercises been off. 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 09/10/2024: Weight 197, BMI 29. Discontinuing Zepbound 2 weeks ago secondary to significant hair loss. Will hold off on all weight loss medications and follow-up in 4 weeks. Will obtain blood work prior 11/17/2024 weight 221, BMI 32. start contrave, discussed proper use and side effects, and contact office with any concerns. Discussed reinitiating wegovy in the future, will trial contrave first. Discussed referral for mounter flutes and piccolos, Patient declines at this time. Follow up in 4-6 weeks # Hair loss: CBC, iron, TIBC, ferritin, ABHAY, CRP, estrogen, progesterone, testosterone, DHEA, TSH, T3, T4, were WNL, vitamin D was low, pt reports that she is taking vitamin D supplementation, vitamin B12 was low, pt recieved Vitamin B12 in office.Patient taking NutrAFUL [facility] improvment. Consider dermatology referral. # Migraines: Adequate nutrition/hydration. Ibuprofen as needed, no red flag symptoms. Separate control, migraines have been worse since then. She is not interested in getting back on control. Taking sumatriptan as needed. If no improvement could consider alternative abortive/preventativ e therapies or imaging. #Patient taken Lexapro 5 mg, patient states that her depression has been worse secondary to weight gain, will add on Contrave # Hyperlipidemia: 08/26/2022 showing total cholesterol 294, triglycerides 323, LDL 169. Lipid panel from 12/25/2023 showing no improvement in cholesterol around 290, but improvement in triglycerides at 185, LDL 177.Based on cholesterol being 290, and cardiovascular risk factors Rosuvastatin 10 mg initiated. Lab from 09/15/2024 total cholesterol 240, LDL 151, HDL 64. Repeating lipid panel in 3-4 months. if cholesterol is still elevated consider increasing Rosuvastatin. # Left shoulder pain: followed with a chiropractor and massage therapist without significant improvement.Ordered x-rays, although patient did not obtain. Ordered MRI of the LT shoulder Without contrast, concerned for rotater cuff abnormality Based on physical examination. Follow-up in 4 weeks, or sooner if needed. All quetsions answered to patients satisfaction. Patient verbalized understanding of diagnosis and treatments explained. To call sooner prior to next visit it any questions/concerns arise. Case discussed with collaborating physician Riley Quintero who reviewed the assessment and plan. Chart, medications, labs, vital signs reviewed. Dictation was accomplished with the use of [employer] voice recognition software, prone to medical misidentifications and grammatical errors. This is unintentional and the practitioner does try to identify and correct these, but some could still be present. Please do not hesitate to contact practitioner for clarification. 03/04/2025 Nutritional counseling (ICD-10 - Z71.3) 10/03/22: Weight 211, BMI 31.16- educated extensively on lifestyle modifications including high-protein, low carbohydrate, healthy fat, exercise, water intake, sleep hygiene, and stress relief. Patient will work on life so modifications of the next four weeks. Interested in weight loss medications. Start with Topamax 25 mg. Patient educated cannot drink alcohol on this medication. Most recent labs reviewed showing hyperlipidemia, without any insulin/diabetes concern. Patient educated on fish oil, diet, exercise. At next visit, will obtain EKG, and start phentermine 15 mg if EKG without concern. No concern for at this time. 10/31/22: weight 212, BMI 31.3- educated on lifestyle modifications. Patient went to [place], and then went to [place] and states that she has been traveling a lot and drinking more than usual. She is ready to get back on track. She has been walking more recently and focusing on portion control as well as eating earlier in the evening. She does feel some appetite suppression on metformin but is interested in starting an additional medication. She did not tolerate Topamax well. EKG's office today within normal limits. Will start phentermine 15 mg. Patient educated on side effects as well as proper use. Will follow-up in four weeks, sooner as needed.Encouraged to increase water intake. 12/05/22: weight 211.5, BMI 31.23- educated extensive and lifestyle modifications. Patient was congratulated on efforts. Taking phentermine 15 mg with compliance, without any side effects. Interested in increasing dose of 30 mg. If patient continues to have minimal weight loss, could consider GLP-1 injection such as Wegovy next visit, as at that time, patient will have three consecutive months of trying to lose weight. Patient understanding and aware of this plan. Educated to increase more formal exercise. 01/09/2023: Weight 207.3, BMI 30.61-patient congratulated on efforts, has been losing some weight. Taking phentermine 30 mg with compliance, without any side effects. Is noticing more appetite suppression on 30 mg then 15. Interested in increasing dose to 37.5. We did have a discussion about possibly switching to GLP-1 such as Wegovy, but having difficulty with supply at this time therefore we will continue phentermine 37.5 at this time. Did talk about compounded semaglutide as well, but patient states she will find it difficult to come to the office once weekly. Will increase to phentermine 37.5, and add Topamax. Patient also does admit to occasional headaches and history of migraines and this could benefit that as well. Educated on proper use, as well as side effects. 02/08/2023: Weight 205, BMI 30.27. Patient congratulated on effort. Taking phentermine 37.5, and Topamax. Noticing some appetite suppression but not significant effect. Interested in tapering off, and starting a different medication such as GLP-1 injection. Patient aware of the national shortage difficulty, but is interested in Saxenda. Did discuss proper use, and side effects of medication. We will taper phentermine, and start Saxenda. 03/12/2023: Weight 207.1, BMI 30.58. Patient expresses frustration given her current circumstances. She has not been able to obtain Saxenda from the pharmacy despite insurance approval. Currently taking phentermine 15 mg with no effect despite maintaining lifestyle modifications. Goals reevaluated and discussed incorporating increased intensity exercise in addition to walking as tolerated. Contacted [facility] pharmacy in [place] who states they cannot dispense Saxenda secondary to supply issues. Called [facility] specialty pharmacy, and Saxenda continues to be on backorder until unknown date. Will send to other [facility] pharmacy in [place], but patient will continue to call pharmacies to see who has availability, and happy to send to pharmacy when she can find one. She is understanding and aware. 04/12/2023: Weight 209 pounds, BMI 30.86. Patient did gain weight, but upon review of body composition scan she did gain 3 pounds of muscle, and lost 1 pound of fat. She was congratulated. Has been working hard with exercise and focusing on portion control but she states that she is going in the opposite direction because she is off of phentermine. Is interested in weight loss medications, tried sending Saxenda but was unable to obtain due to supply concern. We will start compounded semaglutide 0.25 mg today, and follow-up in 4 weeks. Also sending for Wegovy 0.5 mg and she is going to call the pharmacy to see if she can find although she is aware of the national shortage. 07/24/2023: Weight 199.6, BMI 29.47. Patient is welcome back to the practice, has not followed up since April due to insurance concerns, but is now following with us today. Patient was doing really well on semaglutide, but feels like she is now plateauing. Taking 0.5 mg, but interested in increasing to 1 mg. Will provide semaglutide 1 mg today, and submit for Wegovy 1 mg.Encouraged to continue with lifestyle modifications. 12/24/2023: Weight 204.1, BMI 30.14. Patient has gained since visit,, trying to get back on track. Was taking Wegovy 1 mg doing well, has been off for 6 weeks, so we will try to get her back on 1 mg and if not we will increase her to Wegovy 1.7 mg. Educated on proper use, side effects, long-term risk. 03/05/2024: Weight 203, BMI 30. Taking Wegovy 1.7 mg, will continue for another 4 weeks, and then consider increasing to 2.4 mg. If still at a plateau, consider switching over to Zepbound. Implementing more resistance training, and higher protein. Body scan reviewed today 04/02/2024: Weight 199, BMI 29: Patient congratulated on effort, continuing to lose slow, steady weight. Continue with Wegovy 1.7 mg. Encouraged to increase more resistance training, protein, and water intake. Follow-up in 4 weeks, could consider increasing Wegovy to 2.4 mg, or continuing with dose. 05/08/2024: Weight 198, BMI 29.25. Patient continuing to walk. Exercise otherwise limited due to right shoulder pain for which she is following with a chiropractor. Continue Wegovy but increase to 2.4 mg. If no improvement, consider switching over to Zepbound. Following up for physical in 1 month. 06/10/2024: Weight 201, BMI 29.74. Patient sought a plateau, will discontinue Wegovy, switch to Zepbound 2.5 mg. Discussed proper use, side effects. Follow-up in 4 to 6 weeks. 07/28/2024: Weight 198, BMI 29. Weight plateaued since last visit. Switched over to Zepbound 2.5 mg, increased to 5 mg. Her grandmother just passed, so she has been planning arrangements and exercises been off. 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 09/10/2024: Weight 197, BMI 29. Discontinuing Zepbound 2 weeks ago secondary to significant hair loss. Will hold off on all weight loss medications and follow-up in 4 weeks. Will obtain blood work prior 11/17/2024 weight 221, BMI 32. start contrave, discussed proper use and side effects, and contact office with any concerns. Discussed reinitiating wegovy in the future, will trial contrave first. Discussed referral for mounter flutes and piccolos, Patient declines at this time. Follow up in 4-6 weeks 12/24/2024: Weight 225, BMI 33. Patient feeling well mentally taking Contrave, but not noticing any significant weight loss. Will reinitiate Wegovy 0.25 mg, discussed proper use and side effect. Continue to encourage walking. States she felt best on Wegovy. 03/04/2025: Weight 227, BMI 33. Continue with Wegovy 0.25 mg x 4 weeks, increasing 0.5 mg of Wegovy today March 04, 2025. Continue to encourage walking, and resistance training. Patient states hair loss is much improved. # Hair loss: CBC, iron, TIBC, ferritin, ABHAY, CRP, estrogen, progesterone, testosterone, DHEA, TSH, T3, T4, were WNL, vitamin D was low, pt reports that she is taking vitamin D supplementation, vitamin B12 was low, pt recieved Vitamin B12 in office.Patient taking NutrAFUL [facility] improvment. Consider dermatology referral. No further workup needed at this time.Is aware GLP-1's and weight loss can promote normal hair loss. # Migraines: Adequate nutrition/hydration. Ibuprofen as needed, no red flag symptoms. Separate control, migraines have been worse since then. She is not interested in getting back on control. Taking sumatriptan as needed. If no improvement could consider alternative abortive/preventativ e therapies or imaging. #Patient taken Lexapro 5 mg, patient states that her depression has been worse secondary to weight gain, will add on Contrave # Hyperlipidemia: 08/26/2022 showing total cholesterol 294, triglycerides 323, LDL 169. Lipid panel from 12/25/2023 showing no improvement in cholesterol around 290, but improvement in triglycerides at 185, LDL 177.Based on cholesterol being 290, and cardiovascular risk factors Rosuvastatin 10 mg initiated. Lab from 09/15/2024 total cholesterol 240, LDL 151, HDL 64. Repeating lipid panel in 3-4 months. if cholesterol is still elevated consider increasing Rosuvastatin. # Left shoulder pain: followed with a chiropractor and massage therapist without significant improvement.Ordered x-rays, although patient did not obtain. Ordered MRI, showing tendinitis. Scheduled with Ortho in the next 3 weeks for cortisone injections. Follow-up in 4-6 weeks, or sooner if needed. Time spent with patient 30 minutes with greater than 50% on patient education and care coordination All quetsions answered to patients satisfaction. Patient verbalized understanding of diagnosis and treatments explained. To call sooner prior to next visit it any questions/concerns arise. Case discussed with collaborating physician Riley Quintero who reviewed the assessment and plan. Chart, medications, labs, vital signs reviewed. Dictation was accomplished with the use of [employer] voice recognition software, prone to medical misidentifications and grammatical errors. This is unintentional and the practitioner does try to identify and correct these, but some could still be present. Please do not hesitate to contact practitioner for clarification. 12/24/2024 Hair loss (ICD-10 - L65.9) 10/03/22: Weight 211, BMI 31.16- educated extensively on lifestyle modifications including high-protein, low carbohydrate, healthy fat, exercise, water intake, sleep hygiene, and stress relief. Patient will work on life so modifications of the next four weeks. Interested in weight loss medications. Start with Topamax 25 mg. Patient educated cannot drink alcohol on this medication. Most recent labs reviewed showing hyperlipidemia, without any insulin/diabetes concern. Patient educated on fish oil, diet, exercise. At next visit, will obtain EKG, and start phentermine 15 mg if EKG without concern. No concern for at this time. 10/31/22: weight 212, BMI 31.3- educated on lifestyle modifications. Patient went to [place], and then went to [place] and states that she has been traveling a lot and drinking more than usual. She is ready to get back on track. She has been walking more recently and focusing on portion control as well as eating earlier in the evening. She does feel some appetite suppression on metformin but is interested in starting an additional medication. She did not tolerate Topamax well. EKG's office today within normal limits. Will start phentermine 15 mg. Patient educated on side effects as well as proper use. Will follow-up in four weeks, sooner as needed.Encouraged to increase water intake. 12/05/22: weight 211.5, BMI 31.23- educated extensive and lifestyle modifications. Patient was congratulated on efforts. Taking phentermine 15 mg with compliance, without any side effects. Interested in increasing dose of 30 mg. If patient continues to have minimal weight loss, could consider GLP-1 injection such as Wegovy next visit, as at that time, patient will have three consecutive months of trying to lose weight. Patient understanding and aware of this plan. Educated to increase more formal exercise. 01/09/2023: Weight 207.3, BMI 30.61-patient congratulated on efforts, has been losing some weight. Taking phentermine 30 mg with compliance, without any side effects. Is noticing more appetite suppression on 30 mg then 15. Interested in increasing dose to 37.5. We did have a discussion about possibly switching to GLP-1 such as Wegovy, but having difficulty with supply at this time therefore we will continue phentermine 37.5 at this time. Did talk about compounded semaglutide as well, but patient states she will find it difficult to come to the office once weekly. Will increase to phentermine 37.5, and add Topamax. Patient also does admit to occasional headaches and history of migraines and this could benefit that as well. Educated on proper use, as well as side effects. 02/08/2023: Weight 205, BMI 30.27. Patient congratulated on effort. Taking phentermine 37.5, and Topamax. Noticing some appetite suppression but not significant effect. Interested in tapering off, and starting a different medication such as GLP-1 injection. Patient aware of the national shortage difficulty, but is interested in Saxenda. Did discuss proper use, and side effects of medication. We will taper phentermine, and start Saxenda. 03/12/2023: Weight 207.1, BMI 30.58. Patient expresses frustration given her current circumstances. She has not been able to obtain Saxenda from the pharmacy despite insurance approval. Currently taking phentermine 15 mg with no effect despite maintaining lifestyle modifications. Goals reevaluated and discussed incorporating increased intensity exercise in addition to walking as tolerated. Contacted [facility] pharmacy in [place] who states they cannot dispense Saxenda secondary to supply issues. Called [facility] specialty pharmacy, and Saxenda continues to be on backorder until unknown date. Will send to other [facility] pharmacy in [place], but patient will continue to call pharmacies to see who has availability, and happy to send to pharmacy when she can find one. She is understanding and aware. 04/12/2023: Weight 209 pounds, BMI 30.86. Patient did gain weight, but upon review of body composition scan she did gain 3 pounds of muscle, and lost 1 pound of fat. She was congratulated. Has been working hard with exercise and focusing on portion control but she states that she is going in the opposite direction because she is off of phentermine. Is interested in weight loss medications, tried sending Saxenda but was unable to obtain due to supply concern. We will start compounded semaglutide 0.25 mg today, and follow-up in 4 weeks. Also sending for Wegovy 0.5 mg and she is going to call the pharmacy to see if she can find although she is aware of the national shortage. 07/24/2023: Weight 199.6, BMI 29.47. Patient is welcome back to the practice, has not followed up since April due to insurance concerns, but is now following with us today. Patient was doing really well on semaglutide, but feels like she is now plateauing. Taking 0.5 mg, but interested in increasing to 1 mg. Will provide semaglutide 1 mg today, and submit for Wegovy 1 mg.Encouraged to continue with lifestyle modifications. 12/24/2023: Weight 204.1, BMI 30.14. Patient has gained since visit,, trying to get back on track. Was taking Wegovy 1 mg doing well, has been off for 6 weeks, so we will try to get her back on 1 mg and if not we will increase her to Wegovy 1.7 mg. Educated on proper use, side effects, long-term risk. 03/05/2024: Weight 203, BMI 30. Taking Wegovy 1.7 mg, will continue for another 4 weeks, and then consider increasing to 2.4 mg. If still at a plateau, consider switching over to Zepbound. Implementing more resistance training, and higher protein. Body scan reviewed today 04/02/2024: Weight 199, BMI 29: Patient congratulated on effort, continuing to lose slow, steady weight. Continue with Wegovy 1.7 mg. Encouraged to increase more resistance training, protein, and water intake. Follow-up in 4 weeks, could consider increasing Wegovy to 2.4 mg, or continuing with dose. 05/08/2024: Weight 198, BMI 29.25. Patient continuing to walk. Exercise otherwise limited due to right shoulder pain for which she is following with a chiropractor. Continue Wegovy but increase to 2.4 mg. If no improvement, consider switching over to Zepbound. Following up for physical in 1 month. 06/10/2024: Weight 201, BMI 29.74. Patient sought a plateau, will discontinue Wegovy, switch to Zepbound 2.5 mg. Discussed proper use, side effects. Follow-up in 4 to 6 weeks. 07/28/2024: Weight 198, BMI 29. Weight plateaued since last visit. Switched over to Zepbound 2.5 mg, increased to 5 mg. Her grandmother just passed, so she has been planning arrangements and exercises been off. 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 09/10/2024: Weight 197, BMI 29. Discontinuing Zepbound 2 weeks ago secondary to significant hair loss. Will hold off on all weight loss medications and follow-up in 4 weeks. Will obtain blood work prior 11/17/2024 weight 221, BMI 32. start contrave, discussed proper use and side effects, and contact office with any concerns. Discussed reinitiating wegovy in the future, will trial contrave first. Discussed referral for mounter flutes and piccolos, Patient declines at this time. Follow up in 4-6 weeks 12/24/2024: Weight 225, BMI 33. Patient feeling well mentally taking Contrave, but not noticing any significant weight loss. Will reinitiate Wegovy 0.25 mg, discussed proper use and side effect. Continue to encourage walking. States she felt best on Wegovy. # Hair loss: CBC, iron, TIBC, ferritin, ABHAY, CRP, estrogen, progesterone, testosterone, DHEA, TSH, T3, T4, were WNL, vitamin D was low, pt reports that she is taking vitamin D supplementation, vitamin B12 was low, pt recieved Vitamin B12 in office.Patient taking NutrAFUL wth improvment. Consider dermatology referral. No further workup needed at this time.Is aware GLP-1's and weight loss can promote normal hair loss. # Migraines: Adequate nutrition/hydration. Ibuprofen as needed, no red flag symptoms. Separate control, migraines have been worse since then. She is not interested in getting back on control. Taking sumatriptan as needed. If no improvement could consider alternative abortive/preventativ e therapies or imaging. #Patient taken Lexapro 5 mg, patient states that her depression has been worse secondary to weight gain, will add on Contrave # Hyperlipidemia: 08/26/2022 showing total cholesterol 294, triglycerides 323, LDL 169. Lipid panel from 12/25/2023 showing no improvement in cholesterol around 290, but improvement in triglycerides at 185, LDL 177.Based on cholesterol being 290, and cardiovascular risk factors Rosuvastatin 10 mg initiated. Lab from 09/15/2024 total cholesterol 240, LDL 151, HDL 64. Repeating lipid panel in 3-4 months. if cholesterol is still elevated consider increasing Rosuvastatin. # Left shoulder pain: followed with a chiropractor and massage therapist without significant improvement.Ordered x-rays, although patient did not obtain. Ordered MRI, showing tendinitis. Scheduled with Ortho in the next 3 weeks for cortisone injections. Follow-up in 4-6 weeks, or sooner if needed. Time spent with patient 30 minutes with greater than 50% on patient education and care coordination All quetsions answered to patients satisfaction. Patient verbalized understanding of diagnosis and treatments explained. To call sooner prior to next visit it any questions/concerns arise. Case discussed with collaborating physician Riley Quintero who reviewed the assessment and plan. Chart, medications, labs, vital signs reviewed. Dictation was accomplished with the use of [employer] voice recognition software, prone to medical misidentifications and grammatical errors. This is unintentional and the practitioner does try to identify and correct these, but some could still be present. Please do not hesitate to contact practitioner for clarification. 04/13/2025 Hair loss (ICD-10 - L65.9) 10/03/22: Weight 211, BMI 31.16- educated extensively on lifestyle modifications including high-protein, low carbohydrate, healthy fat, exercise, water intake, sleep hygiene, and stress relief. Patient will work on life so modifications of the next four weeks. Interested in weight loss medications. Start with Topamax 25 mg. Patient educated cannot drink alcohol on this medication. Most recent labs reviewed showing hyperlipidemia, without any insulin/diabetes concern. Patient educated on fish oil, diet, exercise. At next visit, will obtain EKG, and start phentermine 15 mg if EKG without concern. No concern for at this time. 10/31/22: weight 212, BMI 31.3- educated on lifestyle modifications. Patient went to [place], and then went to [place] and states that she has been traveling a lot and drinking more than usual. She is ready to get back on track. She has been walking more recently and focusing on portion control as well as eating earlier in the evening. She does feel some appetite suppression on metformin but is interested in starting an additional medication. She did not tolerate Topamax well. EKG's office today within normal limits. Will start phentermine 15 mg. Patient educated on side effects as well as proper use. Will follow-up in four weeks, sooner as needed.Encouraged to increase water intake. 12/05/22: weight 211.5, BMI 31.23- educated extensive and lifestyle modifications. Patient was congratulated on efforts. Taking phentermine 15 mg with compliance, without any side effects. Interested in increasing dose of 30 mg. If patient continues to have minimal weight loss, could consider GLP-1 injection such as Wegovy next visit, as at that time, patient will have three consecutive months of trying to lose weight. Patient understanding and aware of this plan. Educated to increase more formal exercise. 01/09/2023: Weight 207.3, BMI 30.61-patient congratulated on efforts, has been losing some weight. Taking phentermine 30 mg with compliance, without any side effects. Is noticing more appetite suppression on 30 mg then 15. Interested in increasing dose to 37.5. We did have a discussion about possibly switching to GLP-1 such as Wegovy, but having difficulty with supply at this time therefore we will continue phentermine 37.5 at this time. Did talk about compounded semaglutide as well, but patient states she will find it difficult to come to the office once weekly. Will increase to phentermine 37.5, and add Topamax. Patient also does admit to occasional headaches and history of migraines and this could benefit that as well. Educated on proper use, as well as side effects. 02/08/2023: Weight 205, BMI 30.27. Patient congratulated on effort. Taking phentermine 37.5, and Topamax. Noticing some appetite suppression but not significant effect. Interested in tapering off, and starting a different medication such as GLP-1 injection. Patient aware of the national shortage difficulty, but is interested in Saxenda. Did discuss proper use, and side effects of medication. We will taper phentermine, and start Saxenda. 03/12/2023: Weight 207.1, BMI 30.58. Patient expresses frustration given her current circumstances. She has not been able to obtain Saxenda from the pharmacy despite insurance approval. Currently taking phentermine 15 mg with no effect despite maintaining lifestyle modifications. Goals reevaluated and discussed incorporating increased intensity exercise in addition to walking as tolerated. Contacted [facility] pharmacy in [place] who states they cannot dispense Saxenda secondary to supply issues. Called [facility] specialty pharmacy, and Saxenda continues to be on backorder until unknown date. Will send to other [facility] pharmacy in [place], but patient will continue to call pharmacies to see who has availability, and happy to send to pharmacy when she can find one. She is understanding and aware. 04/12/2023: Weight 209 pounds, BMI 30.86. Patient did gain weight, but upon review of body composition scan she did gain 3 pounds of muscle, and lost 1 pound of fat. She was congratulated. Has been working hard with exercise and focusing on portion control but she states that she is going in the opposite direction because she is off of phentermine. Is interested in weight loss medications, tried sending Saxenda but was unable to obtain due to supply concern. We will start compounded semaglutide 0.25 mg today, and follow-up in 4 weeks. Also sending for Wegovy 0.5 mg and she is going to call the pharmacy to see if she can find although she is aware of the national shortage. 07/24/2023: Weight 199.6, BMI 29.47. Patient is welcome back to the practice, has not followed up since April due to insurance concerns, but is now following with us today. Patient was doing really well on semaglutide, but feels like she is now plateauing. Taking 0.5 mg, but interested in increasing to 1 mg. Will provide semaglutide 1 mg today, and submit for Wegovy 1 mg.Encouraged to continue with lifestyle modifications. 12/24/2023: Weight 204.1, BMI 30.14. Patient has gained since visit,, trying to get back on track. Was taking Wegovy 1 mg doing well, has been off for 6 weeks, so we will try to get her back on 1 mg and if not we will increase her to Wegovy 1.7 mg. Educated on proper use, side effects, long-term risk. 03/05/2024: Weight 203, BMI 30. Taking Wegovy 1.7 mg, will continue for another 4 weeks, and then consider increasing to 2.4 mg. If still at a plateau, consider switching over to Zepbound. Implementing more resistance training, and higher protein. Body scan reviewed today 04/02/2024: Weight 199, BMI 29: Patient congratulated on effort, continuing to lose slow, steady weight. Continue with Wegovy 1.7 mg. Encouraged to increase more resistance training, protein, and water intake. Follow-up in 4 weeks, could consider increasing Wegovy to 2.4 mg, or continuing with dose. 05/08/2024: Weight 198, BMI 29.25. Patient continuing to walk. Exercise otherwise limited due to right shoulder pain for which she is following with a chiropractor. Continue Wegovy but increase to 2.4 mg. If no improvement, consider switching over to Zepbound. Following up for physical in 1 month. 06/10/2024: Weight 201, BMI 29.74. Patient sought a plateau, will discontinue Wegovy, switch to Zepbound 2.5 mg. Discussed proper use, side effects. Follow-up in 4 to 6 weeks. 07/28/2024: Weight 198, BMI 29. Weight plateaued since last visit. Switched over to Zepbound 2.5 mg, increased to 5 mg. Her grandmother just passed, so she has been planning arrangements and exercises been off. 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 09/10/2024: Weight 197, BMI 29. Discontinuing Zepbound 2 weeks ago secondary to significant hair loss. Will hold off on all weight loss medications and follow-up in 4 weeks. Will obtain blood work prior 11/17/2024 weight 221, BMI 32. start contrave, discussed proper use and side effects, and contact office with any concerns. Discussed reinitiating wegovy in the future, will trial contrave first. Discussed referral for mounter flutes and piccolos, Patient declines at this time. Follow up in 4-6 weeks 12/24/2024: Weight 225, BMI 33. Patient feeling well mentally taking Contrave, but not noticing any significant weight loss. Will reinitiate Wegovy 0.25 mg, discussed proper use and side effect. Continue to encourage walking. States she felt best on Wegovy. 03/04/2025: Weight 227, BMI 33. Continue with Wegovy 0.25 mg x 4 weeks, increasing 0.5 mg of Wegovy today March 04, 2025. Continue to encourage walking, and resistance training. Patient states hair loss is much improved. 04/13/2025: Weight 221, BMI 32. Losing slow, steady weight. Very pleased with progress overall. Increase Wegovy to 1 mg. Continue with exercise walking 3 miles daily, and focusing on increasing resistance training. # Hair loss: Ongoing hair loss/fatigue. TSH, T3 and T4 within normal limits back in September 2024 but patient states that her cousins have thyroid disease and she is requesting autoimmune workup. Will order autoimmune panel. Patient taking NutrAFUL wth improvment. Consider dermatology referral. No further workup needed at this time.Is aware GLP-1's and weight loss can promote normal hair loss. # Wart of left hand, refer to dermatology. Nlcl-[id number] regimen not helping # Migraines: Adequate nutrition/hydration. Ibuprofen as needed, no red flag symptoms. Separate control, migraines have been worse since then. She is not interested in getting back on control. Taking sumatriptan as needed. If no improvement could consider alternative abortive/preventativ e therapies or imaging. #Patient taken Lexapro 5 mg, patient states that her depression has been worse secondary to weight gain, will add on Contrave # Hyperlipidemia: 08/26/2022 showing total cholesterol 294, triglycerides 323, LDL 169. Lipid panel from 12/25/2023 showing no improvement in cholesterol around 290, but improvement in triglycerides at 185, LDL 177.Based on cholesterol being 290, and cardiovascular risk factors Rosuvastatin 10 mg initiated. Lab from 09/15/2024 total cholesterol 240, LDL 151, HDL 64. Repeating lipid panel in 3-4 months. if cholesterol is still elevated consider increasing Rosuvastatin. # Left shoulder pain: followed with a chiropractor and massage therapist without significant improvement.Ordered x-rays, although patient did not obtain. Ordered MRI, showing tendinitis. Scheduled with Ortho in the next 3 weeks for cortisone injections. Follow-up in 4-6 weeks, or sooner if needed. Time spent with patient 30 minutes with greater than 50% on patient education and care coordination All quetsions answered to patients satisfaction. Patient verbalized understanding of diagnosis and treatments explained. To call sooner prior to next visit it any questions/concerns arise. Case discussed with collaborating physician Riley Quintero who reviewed the assessment and plan. Chart, medications, labs, vital signs reviewed. Dictation was accomplished with the use of [employer] voice recognition software, prone to medical misidentifications and grammatical errors. This is unintentional and the practitioner does try to identify and correct these, but some could still be present. Please do not hesitate to contact practitioner for clarification. 04/13/2025 Encounter for examination of blood pressure without abnormal findings (ICD-10 - Z01.30) 10/03/22: Weight 211, BMI 31.16- educated extensively on lifestyle modifications including high-protein, low carbohydrate, healthy fat, exercise, water intake, sleep hygiene, and stress relief. Patient will work on life so modifications of the next four weeks. Interested in weight loss medications. Start with Topamax 25 mg. Patient educated cannot drink alcohol on this medication. Most recent labs reviewed showing hyperlipidemia, without any insulin/diabetes concern. Patient educated on fish oil, diet, exercise. At next visit, will obtain EKG, and start phentermine 15 mg if EKG without concern. No concern for at this time. 10/31/22: weight 212, BMI 31.3- educated on lifestyle modifications. Patient went to [place], and then went to [place] and states that she has been traveling a lot and drinking more than usual. She is ready to get back on track. She has been walking more recently and focusing on portion control as well as eating earlier in the evening. She does feel some appetite suppression on metformin but is interested in starting an additional medication. She did not tolerate Topamax well. EKG's office today within normal limits. Will start phentermine 15 mg. Patient educated on side effects as well as proper use. Will follow-up in four weeks, sooner as needed.Encouraged to increase water intake. 12/05/22: weight 211.5, BMI 31.23- educated extensive and lifestyle modifications. Patient was congratulated on efforts. Taking phentermine 15 mg with compliance, without any side effects. Interested in increasing dose of 30 mg. If patient continues to have minimal weight loss, could consider GLP-1 injection such as Wegovy next visit, as at that time, patient will have three consecutive months of trying to lose weight. Patient understanding and aware of this plan. Educated to increase more formal exercise. 01/09/2023: Weight 207.3, BMI 30.61-patient congratulated on efforts, has been losing some weight. Taking phentermine 30 mg with compliance, without any side effects. Is noticing more appetite suppression on 30 mg then 15. Interested in increasing dose to 37.5. We did have a discussion about possibly switching to GLP-1 such as Wegovy, but having difficulty with supply at this time therefore we will continue phentermine 37.5 at this time. Did talk about compounded semaglutide as well, but patient states she will find it difficult to come to the office once weekly. Will increase to phentermine 37.5, and add Topamax. Patient also does admit to occasional headaches and history of migraines and this could benefit that as well. Educated on proper use, as well as side effects. 02/08/2023: Weight 205, BMI 30.27. Patient congratulated on effort. Taking phentermine 37.5, and Topamax. Noticing some appetite suppression but not significant effect. Interested in tapering off, and starting a different medication such as GLP-1 injection. Patient aware of the national shortage difficulty, but is interested in Saxenda. Did discuss proper use, and side effects of medication. We will taper phentermine, and start Saxenda. 03/12/2023: Weight 207.1, BMI 30.58. Patient expresses frustration given her current circumstances. She has not been able to obtain Saxenda from the pharmacy despite insurance approval. Currently taking phentermine 15 mg with no effect despite maintaining lifestyle modifications. Goals reevaluated and discussed incorporating increased intensity exercise in addition to walking as tolerated. Contacted [facility] pharmacy in [place] who states they cannot dispense Saxenda secondary to supply issues. Called [facility] specialty pharmacy, and Saxenda continues to be on backorder until unknown date. Will send to other [facility] pharmacy in [place], but patient will continue to call pharmacies to see who has availability, and happy to send to pharmacy when she can find one. She is understanding and aware. 04/12/2023: Weight 209 pounds, BMI 30.86. Patient did gain weight, but upon review of body composition scan she did gain 3 pounds of muscle, and lost 1 pound of fat. She was congratulated. Has been working hard with exercise and focusing on portion control but she states that she is going in the opposite direction because she is off of phentermine. Is interested in weight loss medications, tried sending Saxenda but was unable to obtain due to supply concern. We will start compounded semaglutide 0.25 mg today, and follow-up in 4 weeks. Also sending for Wegovy 0.5 mg and she is going to call the pharmacy to see if she can find although she is aware of the national shortage. 07/24/2023: Weight 199.6, BMI 29.47. Patient is welcome back to the practice, has not followed up since April due to insurance concerns, but is now following with us today. Patient was doing really well on semaglutide, but feels like she is now plateauing. Taking 0.5 mg, but interested in increasing to 1 mg. Will provide semaglutide 1 mg today, and submit for Wegovy 1 mg.Encouraged to continue with lifestyle modifications. 12/24/2023: Weight 204.1, BMI 30.14. Patient has gained since visit,, trying to get back on track. Was taking Wegovy 1 mg doing well, has been off for 6 weeks, so we will try to get her back on 1 mg and if not we will increase her to Wegovy 1.7 mg. Educated on proper use, side effects, long-term risk. 03/05/2024: Weight 203, BMI 30. Taking Wegovy 1.7 mg, will continue for another 4 weeks, and then consider increasing to 2.4 mg. If still at a plateau, consider switching over to Zepbound. Implementing more resistance training, and higher protein. Body scan reviewed today 04/02/2024: Weight 199, BMI 29: Patient congratulated on effort, continuing to lose slow, steady weight. Continue with Wegovy 1.7 mg. Encouraged to increase more resistance training, protein, and water intake. Follow-up in 4 weeks, could consider increasing Wegovy to 2.4 mg, or continuing with dose. 05/08/2024: Weight 198, BMI 29.25. Patient continuing to walk. Exercise otherwise limited due to right shoulder pain for which she is following with a chiropractor. Continue Wegovy but increase to 2.4 mg. If no improvement, consider switching over to Zepbound. Following up for physical in 1 month. 06/10/2024: Weight 201, BMI 29.74. Patient sought a plateau, will discontinue Wegovy, switch to Zepbound 2.5 mg. Discussed proper use, side effects. Follow-up in 4 to 6 weeks. 07/28/2024: Weight 198, BMI 29. Weight plateaued since last visit. Switched over to Zepbound 2.5 mg, increased to 5 mg. Her grandmother just passed, so she has been planning arrangements and exercises been off. 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 09/10/2024: Weight 197, BMI 29. Discontinuing Zepbound 2 weeks ago secondary to significant hair loss. Will hold off on all weight loss medications and follow-up in 4 weeks. Will obtain blood work prior 11/17/2024 weight 221, BMI 32. start contrave, discussed proper use and side effects, and contact office with any concerns. Discussed reinitiating wegovy in the future, will trial contrave first. Discussed referral for mounter flutes and piccolos, Patient declines at this time. Follow up in 4-6 weeks 12/24/2024: Weight 225, BMI 33. Patient feeling well mentally taking Contrave, but not noticing any significant weight loss. Will reinitiate Wegovy 0.25 mg, discussed proper use and side effect. Continue to encourage walking. States she felt best on Wegovy. 03/04/2025: Weight 227, BMI 33. Continue with Wegovy 0.25 mg x 4 weeks, increasing 0.5 mg of Wegovy today March 04, 2025. Continue to encourage walking, and resistance training. Patient states hair loss is much improved. 04/13/2025: Weight 221, BMI 32. Losing slow, steady weight. Very pleased with progress overall. Increase Wegovy to 1 mg. Continue with exercise walking 3 miles daily, and focusing on increasing resistance training. # Hair loss: Ongoing hair loss/fatigue. TSH, T3 and T4 within normal limits back in September 2024 but patient states that her cousins have thyroid disease and she is requesting autoimmune workup. Will order autoimmune panel. Patient taking NutrAFUL wth improvment. Consider dermatology referral. No further workup needed at this time.Is aware GLP-1's and weight loss can promote normal hair loss. # Wart of left hand, refer to dermatology. Yguf-jhv-oqhmnyv regimen not helping # Migraines: Adequate nutrition/hydration. Ibuprofen as needed, no red flag symptoms. Separate control, migraines have been worse since then. She is not interested in getting back on control. Taking sumatriptan as needed. If no improvement could consider alternative abortive/preventativ e therapies or imaging. #Patient taken Lexapro 5 mg, patient states that her depression has been worse secondary to weight gain, will add on Contrave # Hyperlipidemia: 08/26/2022 showing total cholesterol 294, triglycerides 323, LDL 169. Lipid panel from 12/25/2023 showing no improvement in cholesterol around 290, but improvement in triglycerides at 185, LDL 177.Based on cholesterol being 290, and cardiovascular risk factors Rosuvastatin 10 mg initiated. Lab from 09/15/2024 total cholesterol 240, LDL 151, HDL 64. Repeating lipid panel in 3-4 months. if cholesterol is still elevated consider increasing Rosuvastatin. # Left shoulder pain: followed with a chiropractor and massage therapist without significant improvement.Ordered x-rays, although patient did not obtain. Ordered MRI, showing tendinitis. Scheduled with Ortho in the next 3 weeks for cortisone injections. Follow-up in 4-6 weeks, or sooner if needed. Time spent with patient 30 minutes with greater than 50% on patient education and care coordination All quetsions answered to patients satisfaction. Patient verbalized understanding of diagnosis and treatments explained. To call sooner prior to next visit it any questions/concerns arise. Case discussed with collaborating physician Riley Quintero who reviewed the assessment and plan. Chart, medications, labs, vital signs reviewed. Dictation was accomplished with the use of [employer] voice recognition software, prone to medical misidentifications and grammatical errors. This is unintentional and the practitioner does try to identify and correct these, but some could still be present. Please do not hesitate to contact practitioner for clarification. 03/04/2025 Hair loss (ICD-10 - L65.9) 10/03/22: Weight 211, BMI 31.16- educated extensively on lifestyle modifications including high-protein, low carbohydrate, healthy fat, exercise, water intake, sleep hygiene, and stress relief. Patient will work on life so modifications of the next four weeks. Interested in weight loss medications. Start with Topamax 25 mg. Patient educated cannot drink alcohol on this medication. Most recent labs reviewed showing hyperlipidemia, without any insulin/diabetes concern. Patient educated on fish oil, diet, exercise. At next visit, will obtain EKG, and start phentermine 15 mg if EKG without concern. No concern for at this time. 10/31/22: weight 212, BMI 31.3- educated on lifestyle modifications. Patient went to [place], and then went to [place] and states that she has been traveling a lot and drinking more than usual. She is ready to get back on track. She has been walking more recently and focusing on portion control as well as eating earlier in the evening. She does feel some appetite suppression on metformin but is interested in starting an additional medication. She did not tolerate Topamax well. EKG's office today within normal limits. Will start phentermine 15 mg. Patient educated on side effects as well as proper use. Will follow-up in four weeks, sooner as needed.Encouraged to increase water intake. 12/05/22: weight 211.5, BMI 31.23- educated extensive and lifestyle modifications. Patient was congratulated on efforts. Taking phentermine 15 mg with compliance, without any side effects. Interested in increasing dose of 30 mg. If patient continues to have minimal weight loss, could consider GLP-1 injection such as Wegovy next visit, as at that time, patient will have three consecutive months of trying to lose weight. Patient understanding and aware of this plan. Educated to increase more formal exercise. 01/09/2023: Weight 207.3, BMI 30.61-patient congratulated on efforts, has been losing some weight. Taking phentermine 30 mg with compliance, without any side effects. Is noticing more appetite suppression on 30 mg then 15. Interested in increasing dose to 37.5. We did have a discussion about possibly switching to GLP-1 such as Wegovy, but having difficulty with supply at this time therefore we will continue phentermine 37.5 at this time. Did talk about compounded semaglutide as well, but patient states she will find it difficult to come to the office once weekly. Will increase to phentermine 37.5, and add Topamax. Patient also does admit to occasional headaches and history of migraines and this could benefit that as well. Educated on proper use, as well as side effects. 02/08/2023: Weight 205, BMI 30.27. Patient congratulated on effort. Taking phentermine 37.5, and Topamax. Noticing some appetite suppression but not significant effect. Interested in tapering off, and starting a different medication such as GLP-1 injection. Patient aware of the national shortage difficulty, but is interested in Saxenda. Did discuss proper use, and side effects of medication. We will taper phentermine, and start Saxenda. 03/12/2023: Weight 207.1, BMI 30.58. Patient expresses frustration given her current circumstances. She has not been able to obtain Saxenda from the pharmacy despite insurance approval. Currently taking phentermine 15 mg with no effect despite maintaining lifestyle modifications. Goals reevaluated and discussed incorporating increased intensity exercise in addition to walking as tolerated. Contacted [facility] pharmacy in [place] who states they cannot dispense Saxenda secondary to supply issues. Called [facility] specialty pharmacy, and Saxenda continues to be on backorder until unknown date. Will send to other [facility] pharmacy in [place], but patient will continue to call pharmacies to see who has availability, and happy to send to pharmacy when she can find one. She is understanding and aware. 04/12/2023: Weight 209 pounds, BMI 30.86. Patient did gain weight, but upon review of body composition scan she did gain 3 pounds of muscle, and lost 1 pound of fat. She was congratulated. Has been working hard with exercise and focusing on portion control but she states that she is going in the opposite direction because she is off of phentermine. Is interested in weight loss medications, tried sending Saxenda but was unable to obtain due to supply concern. We will start compounded semaglutide 0.25 mg today, and follow-up in 4 weeks. Also sending for Wegovy 0.5 mg and she is going to call the pharmacy to see if she can find although she is aware of the national shortage. 07/24/2023: Weight 199.6, BMI 29.47. Patient is welcome back to the practice, has not followed up since April due to insurance concerns, but is now following with us today. Patient was doing really well on semaglutide, but feels like she is now plateauing. Taking 0.5 mg, but interested in increasing to 1 mg. Will provide semaglutide 1 mg today, and submit for Wegovy 1 mg.Encouraged to continue with lifestyle modifications. 12/24/2023: Weight 204.1, BMI 30.14. Patient has gained since visit,, trying to get back on track. Was taking Wegovy 1 mg doing well, has been off for 6 weeks, so we will try to get her back on 1 mg and if not we will increase her to Wegovy 1.7 mg. Educated on proper use, side effects, long-term risk. 03/05/2024: Weight 203, BMI 30. Taking Wegovy 1.7 mg, will continue for another 4 weeks, and then consider increasing to 2.4 mg. If still at a plateau, consider switching over to Zepbound. Implementing more resistance training, and higher protein. Body scan reviewed today 04/02/2024: Weight 199, BMI 29: Patient congratulated on effort, continuing to lose slow, steady weight. Continue with Wegovy 1.7 mg. Encouraged to increase more resistance training, protein, and water intake. Follow-up in 4 weeks, could consider increasing Wegovy to 2.4 mg, or continuing with dose. 05/08/2024: Weight 198, BMI 29.25. Patient continuing to walk. Exercise otherwise limited due to right shoulder pain for which she is following with a chiropractor. Continue Wegovy but increase to 2.4 mg. If no improvement, consider switching over to Zepbound. Following up for physical in 1 month. 06/10/2024: Weight 201, BMI 29.74. Patient sought a plateau, will discontinue Wegovy, switch to Zepbound 2.5 mg. Discussed proper use, side effects. Follow-up in 4 to 6 weeks. 07/28/2024: Weight 198, BMI 29. Weight plateaued since last visit. Switched over to Zepbound 2.5 mg, increased to 5 mg. Her grandmother just passed, so she has been planning arrangements and exercises been off. 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 09/10/2024: Weight 197, BMI 29. Discontinuing Zepbound 2 weeks ago secondary to significant hair loss. Will hold off on all weight loss medications and follow-up in 4 weeks. Will obtain blood work prior 11/17/2024 weight 221, BMI 32. start contrave, discussed proper use and side effects, and contact office with any concerns. Discussed reinitiating wegovy in the future, will trial contrave first. Discussed referral for mounter flutes and piccolos, Patient declines at this time. Follow up in 4-6 weeks 12/24/2024: Weight 225, BMI 33. Patient feeling well mentally taking Contrave, but not noticing any significant weight loss. Will reinitiate Wegovy 0.25 mg, discussed proper use and side effect. Continue to encourage walking. States she felt best on Wegovy. 03/04/2025: Weight 227, BMI 33. Continue with Wegovy 0.25 mg x 4 weeks, increasing 0.5 mg of Wegovy today March 04, 2025. Continue to encourage walking, and resistance training. Patient states hair loss is much improved. # Hair loss: CBC, iron, TIBC, ferritin, ABHAY, CRP, estrogen, progesterone, testosterone, DHEA, TSH, T3, T4, were WNL, vitamin D was low, pt reports that she is taking vitamin D supplementation, vitamin B12 was low, pt recieved Vitamin B12 in office.Patient taking NutrAFUL wth improvment. Consider dermatology referral. No further workup needed at this time.Is aware GLP-1's and weight loss can promote normal hair loss. # Migraines: Adequate nutrition/hydration. Ibuprofen as needed, no red flag symptoms. Separate control, migraines have been worse since then. She is not interested in getting back on control. Taking sumatriptan as needed. If no improvement could consider alternative abortive/preventativ e therapies or imaging. #Patient taken Lexapro 5 mg, patient states that her depression has been worse secondary to weight gain, will add on Contrave # Hyperlipidemia: 08/26/2022 showing total cholesterol 294, triglycerides 323, LDL 169. Lipid panel from 12/25/2023 showing no improvement in cholesterol around 290, but improvement in triglycerides at 185, LDL 177.Based on cholesterol being 290, and cardiovascular risk factors Rosuvastatin 10 mg initiated. Lab from 09/15/2024 total cholesterol 240, LDL 151, HDL 64. Repeating lipid panel in 3-4 months. if cholesterol is still elevated consider increasing Rosuvastatin. # Left shoulder pain: followed with a chiropractor and massage therapist without significant improvement.Ordered x-rays, although patient did not obtain. Ordered MRI, showing tendinitis. Scheduled with Ortho in the next 3 weeks for cortisone injections. Follow-up in 4-6 weeks, or sooner if needed. Time spent with patient 30 minutes with greater than 50% on patient education and care coordination All quetsions answered to patients satisfaction. Patient verbalized understanding of diagnosis and treatments explained. To call sooner prior to next visit it any questions/concerns arise. Case discussed with collaborating physician Riley Quintero who reviewed the assessment and plan. Chart, medications, labs, vital signs reviewed. Dictation was accomplished with the use of [employer] voice recognition software, prone to medical misidentifications and grammatical errors. This is unintentional and the practitioner does try to identify and correct these, but some could still be present. Please do not hesitate to contact practitioner for clarification. 12/24/2024 Encounter for examination of blood pressure without abnormal findings (ICD-10 - Z01.30) 10/03/22: Weight 211, BMI 31.16- educated extensively on lifestyle modifications including high-protein, low carbohydrate, healthy fat, exercise, water intake, sleep hygiene, and stress relief. Patient will work on life so modifications of the next four weeks. Interested in weight loss medications. Start with Topamax 25 mg. Patient educated cannot drink alcohol on this medication. Most recent labs reviewed showing hyperlipidemia, without any insulin/diabetes concern. Patient educated on fish oil, diet, exercise. At next visit, will obtain EKG, and start phentermine 15 mg if EKG without concern. No concern for at this time. 10/31/22: weight 212, BMI 31.3- educated on lifestyle modifications. Patient went to [place], and then went to [place] and states that she has been traveling a lot and drinking more than usual. She is ready to get back on track. She has been walking more recently and focusing on portion control as well as eating earlier in the evening. She does feel some appetite suppression on metformin but is interested in starting an additional medication. She did not tolerate Topamax well. EKG's office today within normal limits. Will start phentermine 15 mg. Patient educated on side effects as well as proper use. Will follow-up in four weeks, sooner as needed.Encouraged to increase water intake. 12/05/22: weight 211.5, BMI 31.23- educated extensive and lifestyle modifications. Patient was congratulated on efforts. Taking phentermine 15 mg with compliance, without any side effects. Interested in increasing dose of 30 mg. If patient continues to have minimal weight loss, could consider GLP-1 injection such as Wegovy next visit, as at that time, patient will have three consecutive months of trying to lose weight. Patient understanding and aware of this plan. Educated to increase more formal exercise. 01/09/2023: Weight 207.3, BMI 30.61-patient congratulated on efforts, has been losing some weight. Taking phentermine 30 mg with compliance, without any side effects. Is noticing more appetite suppression on 30 mg then 15. Interested in increasing dose to 37.5. We did have a discussion about possibly switching to GLP-1 such as Wegovy, but having difficulty with supply at this time therefore we will continue phentermine 37.5 at this time. Did talk about compounded semaglutide as well, but patient states she will find it difficult to come to the office once weekly. Will increase to phentermine 37.5, and add Topamax. Patient also does admit to occasional headaches and history of migraines and this could benefit that as well. Educated on proper use, as well as side effects. 02/08/2023: Weight 205, BMI 30.27. Patient congratulated on effort. Taking phentermine 37.5, and Topamax. Noticing some appetite suppression but not significant effect. Interested in tapering off, and starting a different medication such as GLP-1 injection. Patient aware of the national shortage difficulty, but is interested in Saxenda. Did discuss proper use, and side effects of medication. We will taper phentermine, and start Saxenda. 03/12/2023: Weight 207.1, BMI 30.58. Patient expresses frustration given her current circumstances. She has not been able to obtain Saxenda from the pharmacy despite insurance approval. Currently taking phentermine 15 mg with no effect despite maintaining lifestyle modifications. Goals reevaluated and discussed incorporating increased intensity exercise in addition to walking as tolerated. Contacted [facility] pharmacy in [place] who states they cannot dispense Saxenda secondary to supply issues. Called [facility] specialty pharmacy, and Saxenda continues to be on backorder until unknown date. Will send to other [facility] pharmacy in [place], but patient will continue to call pharmacies to see who has availability, and happy to send to pharmacy when she can find one. She is understanding and aware. 04/12/2023: Weight 209 pounds, BMI 30.86. Patient did gain weight, but upon review of body composition scan she did gain 3 pounds of muscle, and lost 1 pound of fat. She was congratulated. Has been working hard with exercise and focusing on portion control but she states that she is going in the opposite direction because she is off of phentermine. Is interested in weight loss medications, tried sending Saxenda but was unable to obtain due to supply concern. We will start compounded semaglutide 0.25 mg today, and follow-up in 4 weeks. Also sending for Wegovy 0.5 mg and she is going to call the pharmacy to see if she can find although she is aware of the national shortage. 07/24/2023: Weight 199.6, BMI 29.47. Patient is welcome back to the practice, has not followed up since April due to insurance concerns, but is now following with us today. Patient was doing really well on semaglutide, but feels like she is now plateauing. Taking 0.5 mg, but interested in increasing to 1 mg. Will provide semaglutide 1 mg today, and submit for Wegovy 1 mg.Encouraged to continue with lifestyle modifications. 12/24/2023: Weight 204.1, BMI 30.14. Patient has gained since visit,, trying to get back on track. Was taking Wegovy 1 mg doing well, has been off for 6 weeks, so we will try to get her back on 1 mg and if not we will increase her to Wegovy 1.7 mg. Educated on proper use, side effects, long-term risk. 03/05/2024: Weight 203, BMI 30. Taking Wegovy 1.7 mg, will continue for another 4 weeks, and then consider increasing to 2.4 mg. If still at a plateau, consider switching over to Zepbound. Implementing more resistance training, and higher protein. Body scan reviewed today 04/02/2024: Weight 199, BMI 29: Patient congratulated on effort, continuing to lose slow, steady weight. Continue with Wegovy 1.7 mg. Encouraged to increase more resistance training, protein, and water intake. Follow-up in 4 weeks, could consider increasing Wegovy to 2.4 mg, or continuing with dose. 05/08/2024: Weight 198, BMI 29.25. Patient continuing to walk. Exercise otherwise limited due to right shoulder pain for which she is following with a chiropractor. Continue Wegovy but increase to 2.4 mg. If no improvement, consider switching over to Zepbound. Following up for physical in 1 month. 06/10/2024: Weight 201, BMI 29.74. Patient sought a plateau, will discontinue Wegovy, switch to Zepbound 2.5 mg. Discussed proper use, side effects. Follow-up in 4 to 6 weeks. 07/28/2024: Weight 198, BMI 29. Weight plateaued since last visit. Switched over to Zepbound 2.5 mg, increased to 5 mg. Her grandmother just passed, so she has been planning arrangements and exercises been off. 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 09/10/2024: Weight 197, BMI 29. Discontinuing Zepbound 2 weeks ago secondary to significant hair loss. Will hold off on all weight loss medications and follow-up in 4 weeks. Will obtain blood work prior 11/17/2024 weight 221, BMI 32. start contrave, discussed proper use and side effects, and contact office with any concerns. Discussed reinitiating wegovy in the future, will trial contrave first. Discussed referral for mounter flutes and piccolos, Patient declines at this time. Follow up in 4-6 weeks 12/24/2024: Weight 225, BMI 33. Patient feeling well mentally taking Contrave, but not noticing any significant weight loss. Will reinitiate Wegovy 0.25 mg, discussed proper use and side effect. Continue to encourage walking. States she felt best on Wegovy. # Hair loss: CBC, iron, TIBC, ferritin, ABHAY, CRP, estrogen, progesterone, testosterone, DHEA, TSH, T3, T4, were WNL, vitamin D was low, pt reports that she is taking vitamin D supplementation, vitamin B12 was low, pt recieved Vitamin B12 in office.Patient taking NutrAFUL wth improvment. Consider dermatology referral. No further workup needed at this time.Is aware GLP-1's and weight loss can promote normal hair loss. # Migraines: Adequate nutrition/hydration. Ibuprofen as needed, no red flag symptoms. Separate control, migraines have been worse since then. She is not interested in getting back on control. Taking sumatriptan as needed. If no improvement could consider alternative abortive/preventativ e therapies or imaging. #Patient taken Lexapro 5 mg, patient states that her depression has been worse secondary to weight gain, will add on Contrave # Hyperlipidemia: 08/26/2022 showing total cholesterol 294, triglycerides 323, LDL 169. Lipid panel from 12/25/2023 showing no improvement in cholesterol around 290, but improvement in triglycerides at 185, LDL 177.Based on cholesterol being 290, and cardiovascular risk factors Rosuvastatin 10 mg initiated. Lab from 09/15/2024 total cholesterol 240, LDL 151, HDL 64. Repeating lipid panel in 3-4 months. if cholesterol is still elevated consider increasing Rosuvastatin. # Left shoulder pain: followed with a chiropractor and massage therapist without significant improvement.Ordered x-rays, although patient did not obtain. Ordered MRI, showing tendinitis. Scheduled with Ortho in the next 3 weeks for cortisone injections. Follow-up in 4-6 weeks, or sooner if needed. Time spent with patient 30 minutes with greater than 50% on patient education and care coordination All quetsions answered to patients satisfaction. Patient verbalized understanding of diagnosis and treatments explained. To call sooner prior to next visit it any questions/concerns arise. Case discussed with collaborating physician Riley Quintero who reviewed the assessment and plan. Chart, medications, labs, vital signs reviewed. Dictation was accomplished with the use of [employer] voice recognition software, prone to medical misidentifications and grammatical errors. This is unintentional and the practitioner does try to identify and correct these, but some could still be present. Please do not hesitate to contact practitioner for clarification. 09/10/2024 Hyperlipidemia, unspecified hyperlipidemia type (ICD-10 - E78.5) 10/03/22: Weight 211, BMI 31.16- educated extensively on lifestyle modifications including high-protein, low carbohydrate, healthy fat, exercise, water intake, sleep hygiene, and stress relief. Patient will work on life so modifications of the next four weeks. Interested in weight loss medications. Start with Topamax 25 mg. Patient educated cannot drink alcohol on this medication. Most recent labs reviewed showing hyperlipidemia, without any insulin/diabetes concern. Patient educated on fish oil, diet, exercise. At next visit, will obtain EKG, and start phentermine 15 mg if EKG without concern. No concern for at this time. 10/31/22: weight 212, BMI 31.3- educated on lifestyle modifications. Patient went to [place], and then went to [place] and states that she has been traveling a lot and drinking more than usual. She is ready to get back on track. She has been walking more recently and focusing on portion control as well as eating earlier in the evening. She does feel some appetite suppression on metformin but is interested in starting an additional medication. She did not tolerate Topamax well. EKG's office today within normal limits. Will start phentermine 15 mg. Patient educated on side effects as well as proper use. Will follow-up in four weeks, sooner as needed.Encouraged to increase water intake. 12/05/22: weight 211.5, BMI 31.23- educated extensive and lifestyle modifications. Patient was congratulated on efforts. Taking phentermine 15 mg with compliance, without any side effects. Interested in increasing dose of 30 mg. If patient continues to have minimal weight loss, could consider GLP-1 injection such as Wegovy next visit, as at that time, patient will have three consecutive months of trying to lose weight. Patient understanding and aware of this plan. Educated to increase more formal exercise. 01/09/2023: Weight 207.3, BMI 30.61-patient congratulated on efforts, has been losing some weight. Taking phentermine 30 mg with compliance, without any side effects. Is noticing more appetite suppression on 30 mg then 15. Interested in increasing dose to 37.5. We did have a discussion about possibly switching to GLP-1 such as Wegovy, but having difficulty with supply at this time therefore we will continue phentermine 37.5 at this time. Did talk about compounded semaglutide as well, but patient states she will find it difficult to come to the office once weekly. Will increase to phentermine 37.5, and add Topamax. Patient also does admit to occasional headaches and history of migraines and this could benefit that as well. Educated on proper use, as well as side effects. 02/08/2023: Weight 205, BMI 30.27. Patient congratulated on effort. Taking phentermine 37.5, and Topamax. Noticing some appetite suppression but not significant effect. Interested in tapering off, and starting a different medication such as GLP-1 injection. Patient aware of the national shortage difficulty, but is interested in Saxenda. Did discuss proper use, and side effects of medication. We will taper phentermine, and start Saxenda. 03/12/2023: Weight 207.1, BMI 30.58. Patient expresses frustration given her current circumstances. She has not been able to obtain Saxenda from the pharmacy despite insurance approval. Currently taking phentermine 15 mg with no effect despite maintaining lifestyle modifications. Goals reevaluated and discussed incorporating increased intensity exercise in addition to walking as tolerated. Contacted [facility] pharmacy in [place] who states they cannot dispense Saxenda secondary to supply issues. Called [facility] specialty pharmacy, and Saxenda continues to be on backorder until unknown date. Will send to other [facility] pharmacy in [place], but patient will continue to call pharmacies to see who has availability, and happy to send to pharmacy when she can find one. She is understanding and aware. 04/12/2023: Weight 209 pounds, BMI 30.86. Patient did gain weight, but upon review of body composition scan she did gain 3 pounds of muscle, and lost 1 pound of fat. She was congratulated. Has been working hard with exercise and focusing on portion control but she states that she is going in the opposite direction because she is off of phentermine. Is interested in weight loss medications, tried sending Saxenda but was unable to obtain due to supply concern. We will start compounded semaglutide 0.25 mg today, and follow-up in 4 weeks. Also sending for Wegovy 0.5 mg and she is going to call the pharmacy to see if she can find although she is aware of the national shortage. 07/24/2023: Weight 199.6, BMI 29.47. Patient is welcome back to the practice, has not followed up since April due to insurance concerns, but is now following with us today. Patient was doing really well on semaglutide, but feels like she is now plateauing. Taking 0.5 mg, but interested in increasing to 1 mg. Will provide semaglutide 1 mg today, and submit for Wegovy 1 mg.Encouraged to continue with lifestyle modifications. 12/24/2023: Weight 204.1, BMI 30.14. Patient has gained since visit,, trying to get back on track. Was taking Wegovy 1 mg doing well, has been off for 6 weeks, so we will try to get her back on 1 mg and if not we will increase her to Wegovy 1.7 mg. Educated on proper use, side effects, long-term risk. 03/05/2024: Weight 203, BMI 30. Taking Wegovy 1.7 mg, will continue for another 4 weeks, and then consider increasing to 2.4 mg. If still at a plateau, consider switching over to Zepbound. Implementing more resistance training, and higher protein. Body scan reviewed today 04/02/2024: Weight 199, BMI 29: Patient congratulated on effort, continuing to lose slow, steady weight. Continue with Wegovy 1.7 mg. Encouraged to increase more resistance training, protein, and water intake. Follow-up in 4 weeks, could consider increasing Wegovy to 2.4 mg, or continuing with dose. 05/08/2024: Weight 198, BMI 29.25. Patient continuing to walk. Exercise otherwise limited due to right shoulder pain for which she is following with a chiropractor. Continue Wegovy but increase to 2.4 mg. If no improvement, consider switching over to Zepbound. Following up for physical in 1 month. 06/10/2024: Weight 201, BMI 29.74. Patient sought a plateau, will discontinue Wegovy, switch to Zepbound 2.5 mg. Discussed proper use, side effects. Follow-up in 4 to 6 weeks. 07/28/2024: Weight 198, BMI 29. Weight plateaued since last visit. Switched over to Zepbound 2.5 mg, increased to 5 mg. Her grandmother just passed, so she has been planning arrangements and exercises been off. 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 09/10/2024: Weight 197, BMI 29. Discontinuing Zepbound 2 weeks ago secondary to significant hair loss. Will hold off on all weight loss medications and follow-up in 4 weeks. Will obtain blood work prior # Hair loss: Ordering CBC, iron, TIBC, ferritin, ABHAY, CRP, estrogen, progesterone, testosterone, DHEA, TSH, T3, T4, vitamin D, and vitamin B12.Patient taking NutrAFUL. Consider dermatology referral. # Migraines: Adequate nutrition/hydration. Ibuprofen as needed, no red flag symptoms. Separate control, migraines have been worse since then. She is not interested in getting back on control. Taking sumatriptan as needed. If no improvement could consider alternative abortive/preventativ e therapies or imaging. #Patient taken Lexapro. No concerns at this time. # Hyperlipidemia: Labs from 08/26/2022 showing total cholesterol 294, triglycerides 323, LDL 169. Lipid panel from 12/25/2023 showing no improvement in cholesterol around 290, but improvement in triglycerides at 185, LDL 177.Based on cholesterol being 290, and cardiovascular risk factors Rosuvastatin 10 mg initiated. Repeating lipid panel. # Right shoulder pain: X 6 months, followed with a chiropractor and massage therapist without significant improvement.Ordered x-rays, although patient did not obtain. Follow-up in 4 weeks, lab in the meantime. All quetsions answered to patients satisfaction. Patient verbalized understanding of diagnosis and treatments explained. To call sooner prior to next visit it any questions/concerns arise. Case discussed with collaborating physician Riley Quintero who reviewed the assessment and plan. Chart, medications, labs, vital signs reviewed. Dictation was accomplished with the use of [employer] voice recognition software, prone to medical misidentifications and grammatical errors. This is unintentional and the practitioner does try to identify and correct these, but some could still be present. Please do not hesitate to contact practitioner for clarification. 06/10/2024 Episodic migraine (ICD-10 - G43.909) Glenis is a pleasant 43-year-old female presents the office for complete physical exam. Patient is up-to-date on all routine screenings, just had a mammogram this year, Pap smear this year. Follows with [facility] for both of those things. Declines flu and COVID vaccines, up-to-date on tetanus. Healthcare proxy is her boyfriend Cristino, and her mom Yeimi, which was filled out on 06/10/2024. PHQ-9 with a total score of 5, no concern regarding mental health at this time. 10/03/22: Weight 211, BMI 31.16- educated extensively on lifestyle modifications including high-protein, low carbohydrate, healthy fat, exercise, water intake, sleep hygiene, and stress relief. Patient will work on life so modifications of the next four weeks. Interested in weight loss medications. Start with Topamax 25 mg. Patient educated cannot drink alcohol on this medication. Most recent labs reviewed showing hyperlipidemia, without any insulin/diabetes concern. Patient educated on fish oil, diet, exercise. At next visit, will obtain EKG, and start phentermine 15 mg if EKG without concern. No concern for at this time. 10/31/22: weight 212, BMI 31.3- educated on lifestyle modifications. Patient went to [place], and then went to [place] and states that she has been traveling a lot and drinking more than usual. She is ready to get back on track. She has been walking more recently and focusing on portion control as well as eating earlier in the evening. She does feel some appetite suppression on metformin but is interested in starting an additional medication. She did not tolerate Topamax well. EKG's office today within normal limits. Will start phentermine 15 mg. Patient educated on side effects as well as proper use. Will follow-up in four weeks, sooner as needed.Encouraged to increase water intake. 12/05/22: weight 211.5, BMI 31.23- educated extensive and lifestyle modifications. Patient was congratulated on efforts. Taking phentermine 15 mg with compliance, without any side effects. Interested in increasing dose of 30 mg. If patient continues to have minimal weight loss, could consider GLP-1 injection such as Wegovy next visit, as at that time, patient will have three consecutive months of trying to lose weight. Patient understanding and aware of this plan. Educated to increase more formal exercise. 01/09/2023: Weight 207.3, BMI 30.61-patient congratulated on efforts, has been losing some weight. Taking phentermine 30 mg with compliance, without any side effects. Is noticing more appetite suppression on 30 mg then 15. Interested in increasing dose to 37.5. We did have a discussion about possibly switching to GLP-1 such as Wegovy, but having difficulty with supply at this time therefore we will continue phentermine 37.5 at this time. Did talk about compounded semaglutide as well, but patient states she will find it difficult to come to the office once weekly. Will increase to phentermine 37.5, and add Topamax. Patient also does admit to occasional headaches and history of migraines and this could benefit that as well. Educated on proper use, as well as side effects. 02/08/2023: Weight 205, BMI 30.27. Patient congratulated on effort. Taking phentermine 37.5, and Topamax. Noticing some appetite suppression but not significant effect. Interested in tapering off, and starting a different medication such as GLP-1 injection. Patient aware of the national shortage difficulty, but is interested in Saxenda. Did discuss proper use, and side effects of medication. We will taper phentermine, and start Saxenda. 03/12/2023: Weight 207.1, BMI 30.58. Patient expresses frustration given her current circumstances. She has not been able to obtain Saxenda from the pharmacy despite insurance approval. Currently taking phentermine 15 mg with no effect despite maintaining lifestyle modifications. Goals reevaluated and discussed incorporating increased intensity exercise in addition to walking as tolerated. Contacted [facility] pharmacy in [place] who states they cannot dispense Saxenda secondary to supply issues. Called [facility] specialty pharmacy, and Saxenda continues to be on backorder until unknown date. Will send to other [facility] pharmacy in [place], but patient will continue to call pharmacies to see who has availability, and happy to send to pharmacy when she can find one. She is understanding and aware. 04/12/2023: Weight 209 pounds, BMI 30.86. Patient did gain weight, but upon review of body composition scan she did gain 3 pounds of muscle, and lost 1 pound of fat. She was congratulated. Has been working hard with exercise and focusing on portion control but she states that she is going in the opposite direction because she is off of phentermine. Is interested in weight loss medications, tried sending Saxenda but was unable to obtain due to supply concern. We will start compounded semaglutide 0.25 mg today, and follow-up in 4 weeks. Also sending for Wegovy 0.5 mg and she is going to call the pharmacy to see if she can find although she is aware of the national shortage. 07/24/2023: Weight 199.6, BMI 29.47. Patient is welcome back to the practice, has not followed up since April due to insurance concerns, but is now following with us today. Patient was doing really well on semaglutide, but feels like she is now plateauing. Taking 0.5 mg, but interested in increasing to 1 mg. Will provide semaglutide 1 mg today, and submit for Wegovy 1 mg.Encouraged to continue with lifestyle modifications. 12/24/2023: Weight 204.1, BMI 30.14. Patient has gained since visit,, trying to get back on track. Was taking Wegovy 1 mg doing well, has been off for 6 weeks, so we will try to get her back on 1 mg and if not we will increase her to Wegovy 1.7 mg. Educated on proper use, side effects, long-term risk. 03/05/2024: Weight 203, BMI 30. Taking Wegovy 1.7 mg, will continue for another 4 weeks, and then consider increasing to 2.4 mg. If still at a plateau, consider switching over to Zepbound. Implementing more resistance training, and higher protein. Body scan reviewed today 04/02/2024: Weight 199, BMI 29: Patient congratulated on effort, continuing to lose slow, steady weight. Continue with Wegovy 1.7 mg. Encouraged to increase more resistance training, protein, and water intake. Follow-up in 4 weeks, could consider increasing Wegovy to 2.4 mg, or continuing with dose. 05/08/2024: Weight 198, BMI 29.25. Patient continuing to walk. Exercise otherwise limited due to right shoulder pain for which she is following with a chiropractor. Continue Wegovy but increase to 2.4 mg. If no improvement, consider switching over to Zepbound. Following up for physical in 1 month. 06/10/2024: Weight 201, BMI 29.74. Patient sought a plateau, will discontinue Wegovy, switch to Zepbound 2.5 mg. Discussed proper use, side effects. Follow-up in 4 to 6 weeks. #Patient also has some concerns regarding thinning of hair. Thyroid within normal limits. States that it is her also in her family. Did discuss possible dermatology referral, or PRP injections through our [facility]. # Migraines: X 3 months. Adequate nutrition/hydration. Ibuprofen as needed, no red flag symptoms. Separate control, migraines have been worse since then. She is not interested in getting back on control. Symptoms persisting, so trial sumatriptan 25 mg, repeating dose after 2 hours if symptoms persist. Discussed proper use, side effects. If no improvement could consider alternative abortive/preventativ e therapies or imaging. #Patient taken Lexapro. No concerns at this time. # Hyperlipidemia: Labs from 08/26/2022 showing total cholesterol 294, triglycerides 323, LDL 169. Lipid panel from 12/25/2023 showing no improvement in cholesterol around 290, but improvement in triglycerides at 185, LDL 177.Based on cholesterol being 290, and cardiovascular risk factors will start rosuvastatin 10 mg, Due for repeat lipid panel to assess efficacy/compliance of medication. Will order today. We discussed lifestyle factors, she is eating a lot of shrimp, and red meat. Discussed fish, fish oil, [place], healthy fats. # Right shoulder pain: X 6 months, followed with a chiropractor and massage therapist without significant improvement. Will start with x-rays. Most likely will need physical therapy, Ortho referral, or further imaging. Discussed conservative treatments. Follow-up in 4 to 6 weeks for weight management. In the meantime x-ray of the right shoulder, and blood work. Will also assess efficacy/compliance of sumatriptan. Patient seen and examined. Comprehensive discussion was done on the following. 1. Nutrition: It is important to follow a healthy diet based on lots of vegetables and legumes and good fat. Avoid processed food and processed carbohydrates. Prepare your own meals. Read labels and avoid high fructose corn syrup, processed chemicals added to increase shelf life and preprepared meals. Avoid fast foods. Eat slowly and plan meals for a week. Try to count calories and be mindful off daily calorie intake. Get into the habit of keeping an eye on your weight by using an appropriate scale. Learn to log exercise and discussed fitness Apps like [employer] which can help keep log off calories taken versus calories burned. Local food should be preferred. Discussed Dirty Dozen Versus Clean Fifteen. Discussed healthy supplements like fish oil, Tumeric, Curcumin, Melatonin, Resveratrol, Probiotics, Vitamin-D, Alpha-Lipoic acid, Vitamin-D and coconut oil. 2. It is important to exercise regularly. Is a good habit to walk at least 30 minutes a day. Gentle weightlifting with standard precautions to protect the back. Finding activity like cycling or hiking and get into the habit of engaging in it. Stretching before and after the exercises important. It is also important to contact me if there are any problems like shortness of breath, chest pain, back pain and joint or muscle pain associated with the exercise. 3. Discussed age appropriate screening guidelines. Colonoscopy needs to start at age 50 with stool for occult blood as appropriate. There is a new test that can test for genetic abnormalities in the stool sample, Cologuard. This would not replace a colonoscopy but could be used as a screening tool for patients who do not want a colonoscopy. We discussed the importance of early detection of colon cancer. 4. Discussed current guidelines with respect to breast examination, mammogram and pap smear for early detection of breast and cervical cancer. Patient advised to follow up with these appointments. 5. Discussed safe driving and no use of smart phone while driving 6. Age-appropriate immunizations were discussed. A tetanus booster is needed every 10 years. Flu vaccine is recommended every year just before the start of the flu season. Shingles vaccine is recommended after age 50 but not all insurances cover it. Pneumonia vaccine is given after age 65 unless there are certain comorbidities for which it is started earlier. 7. Diagnostic labs were discussed. These could include/not limited to CBC CMP and lipids with fasting blood glucose and insulin levels. Vitamin D and hemoglobin A1c testing might be appropriate. All quetsions answered to patients satisfaction. Patient verbalized understanding of diagnosis and treatments explained. To call sooner prior to next visit it any questions/concerns arise. Case discussed with collaborating physician Riley Quintero who reviewed the assessment and plan. Chart, medications, labs, vital signs reviewed. Dictation was accomplished with the use of [employer] voice recognition software, prone to medical misidentifications and grammatical errors. This is unintentional and the practitioner does try to identify and correct these, but some could still be present. Please do not hesitate to contact practitioner for clarification. 03/04/2025 Encounter for examination of blood pressure without abnormal findings (ICD-10 - Z01.30) 10/03/22: Weight 211, BMI 31.16- educated extensively on lifestyle modifications including high-protein, low carbohydrate, healthy fat, exercise, water intake, sleep hygiene, and stress relief. Patient will work on life so modifications of the next four weeks. Interested in weight loss medications. Start with Topamax 25 mg. Patient educated cannot drink alcohol on this medication. Most recent labs reviewed showing hyperlipidemia, without any insulin/diabetes concern. Patient educated on fish oil, diet, exercise. At next visit, will obtain EKG, and start phentermine 15 mg if EKG without concern. No concern for at this time. 10/31/22: weight 212, BMI 31.3- educated on lifestyle modifications. Patient went to [place], and then went to [place] and states that she has been traveling a lot and drinking more than usual. She is ready to get back on track. She has been walking more recently and focusing on portion control as well as eating earlier in the evening. She does feel some appetite suppression on metformin but is interested in starting an additional medication. She did not tolerate Topamax well. EKG's office today within normal limits. Will start phentermine 15 mg. Patient educated on side effects as well as proper use. Will follow-up in four weeks, sooner as needed.Encouraged to increase water intake. 12/05/22: weight 211.5, BMI 31.23- educated extensive and lifestyle modifications. Patient was congratulated on efforts. Taking phentermine 15 mg with compliance, without any side effects. Interested in increasing dose of 30 mg. If patient continues to have minimal weight loss, could consider GLP-1 injection such as Wegovy next visit, as at that time, patient will have three consecutive months of trying to lose weight. Patient understanding and aware of this plan. Educated to increase more formal exercise. 01/09/2023: Weight 207.3, BMI 30.61-patient congratulated on efforts, has been losing some weight. Taking phentermine 30 mg with compliance, without any side effects. Is noticing more appetite suppression on 30 mg then 15. Interested in increasing dose to 37.5. We did have a discussion about possibly switching to GLP-1 such as Wegovy, but having difficulty with supply at this time therefore we will continue phentermine 37.5 at this time. Did talk about compounded semaglutide as well, but patient states she will find it difficult to come to the office once weekly. Will increase to phentermine 37.5, and add Topamax. Patient also does admit to occasional headaches and history of migraines and this could benefit that as well. Educated on proper use, as well as side effects. 02/08/2023: Weight 205, BMI 30.27. Patient congratulated on effort. Taking phentermine 37.5, and Topamax. Noticing some appetite suppression but not significant effect. Interested in tapering off, and starting a different medication such as GLP-1 injection. Patient aware of the national shortage difficulty, but is interested in Saxenda. Did discuss proper use, and side effects of medication. We will taper phentermine, and start Saxenda. 03/12/2023: Weight 207.1, BMI 30.58. Patient expresses frustration given her current circumstances. She has not been able to obtain Saxenda from the pharmacy despite insurance approval. Currently taking phentermine 15 mg with no effect despite maintaining lifestyle modifications. Goals reevaluated and discussed incorporating increased intensity exercise in addition to walking as tolerated. Contacted [facility] pharmacy in [place] who states they cannot dispense Saxenda secondary to supply issues. Called [facility] specialty pharmacy, and Saxenda continues to be on backorder until unknown date. Will send to other [facility] pharmacy in [place], but patient will continue to call pharmacies to see who has availability, and happy to send to pharmacy when she can find one. She is understanding and aware. 04/12/2023: Weight 209 pounds, BMI 30.86. Patient did gain weight, but upon review of body composition scan she did gain 3 pounds of muscle, and lost 1 pound of fat. She was congratulated. Has been working hard with exercise and focusing on portion control but she states that she is going in the opposite direction because she is off of phentermine. Is interested in weight loss medications, tried sending Saxenda but was unable to obtain due to supply concern. We will start compounded semaglutide 0.25 mg today, and follow-up in 4 weeks. Also sending for Wegovy 0.5 mg and she is going to call the pharmacy to see if she can find although she is aware of the national shortage. 07/24/2023: Weight 199.6, BMI 29.47. Patient is welcome back to the practice, has not followed up since April due to insurance concerns, but is now following with us today. Patient was doing really well on semaglutide, but feels like she is now plateauing. Taking 0.5 mg, but interested in increasing to 1 mg. Will provide semaglutide 1 mg today, and submit for Wegovy 1 mg.Encouraged to continue with lifestyle modifications. 12/24/2023: Weight 204.1, BMI 30.14. Patient has gained since visit,, trying to get back on track. Was taking Wegovy 1 mg doing well, has been off for 6 weeks, so we will try to get her back on 1 mg and if not we will increase her to Wegovy 1.7 mg. Educated on proper use, side effects, long-term risk. 03/05/2024: Weight 203, BMI 30. Taking Wegovy 1.7 mg, will continue for another 4 weeks, and then consider increasing to 2.4 mg. If still at a plateau, consider switching over to Zepbound. Implementing more resistance training, and higher protein. Body scan reviewed today 04/02/2024: Weight 199, BMI 29: Patient congratulated on effort, continuing to lose slow, steady weight. Continue with Wegovy 1.7 mg. Encouraged to increase more resistance training, protein, and water intake. Follow-up in 4 weeks, could consider increasing Wegovy to 2.4 mg, or continuing with dose. 05/08/2024: Weight 198, BMI 29.25. Patient continuing to walk. Exercise otherwise limited due to right shoulder pain for which she is following with a chiropractor. Continue Wegovy but increase to 2.4 mg. If no improvement, consider switching over to Zepbound. Following up for physical in 1 month. 06/10/2024: Weight 201, BMI 29.74. Patient sought a plateau, will discontinue Wegovy, switch to Zepbound 2.5 mg. Discussed proper use, side effects. Follow-up in 4 to 6 weeks. 07/28/2024: Weight 198, BMI 29. Weight plateaued since last visit. Switched over to Zepbound 2.5 mg, increased to 5 mg. Her grandmother just passed, so she has been planning arrangements and exercises been off. 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 09/10/2024: Weight 197, BMI 29. Discontinuing Zepbound 2 weeks ago secondary to significant hair loss. Will hold off on all weight loss medications and follow-up in 4 weeks. Will obtain blood work prior 11/17/2024 weight 221, BMI 32. start contrave, discussed proper use and side effects, and contact office with any concerns. Discussed reinitiating wegovy in the future, will trial contrave first. Discussed referral for mounter flutes and piccolos, Patient declines at this time. Follow up in 4-6 weeks 12/24/2024: Weight 225, BMI 33. Patient feeling well mentally taking Contrave, but not noticing any significant weight loss. Will reinitiate Wegovy 0.25 mg, discussed proper use and side effect. Continue to encourage walking. States she felt best on Wegovy. 03/04/2025: Weight 227, BMI 33. Continue with Wegovy 0.25 mg x 4 weeks, increasing 0.5 mg of Wegovy today March 04, 2025. Continue to encourage walking, and resistance training. Patient states hair loss is much improved. # Hair loss: CBC, iron, TIBC, ferritin, ABHAY, CRP, estrogen, progesterone, testosterone, DHEA, TSH, T3, T4, were WNL, vitamin D was low, pt reports that she is taking vitamin D supplementation, vitamin B12 was low, pt recieved Vitamin B12 in office.Patient taking NutrAFUL wth improvment. Consider dermatology referral. No further workup needed at this time.Is aware GLP-1's and weight loss can promote normal hair loss. # Migraines: Adequate nutrition/hydration. Ibuprofen as needed, no red flag symptoms. Separate control, migraines have been worse since then. She is not interested in getting back on control. Taking sumatriptan as needed. If no improvement could consider alternative abortive/preventativ e therapies or imaging. #Patient taken Lexapro 5 mg, patient states that her depression has been worse secondary to weight gain, will add on Contrave # Hyperlipidemia: 08/26/2022 showing total cholesterol 294, triglycerides 323, LDL 169. Lipid panel from 12/25/2023 showing no improvement in cholesterol around 290, but improvement in triglycerides at 185, LDL 177.Based on cholesterol being 290, and cardiovascular risk factors Rosuvastatin 10 mg initiated. Lab from 09/15/2024 total cholesterol 240, LDL 151, HDL 64. Repeating lipid panel in 3-4 months. if cholesterol is still elevated consider increasing Rosuvastatin. # Left shoulder pain: followed with a chiropractor and massage therapist without significant improvement.Ordered x-rays, although patient did not obtain. Ordered MRI, showing tendinitis. Scheduled with Ortho in the next 3 weeks for cortisone injections. Follow-up in 4-6 weeks, or sooner if needed. Time spent with patient 30 minutes with greater than 50% on patient education and care coordination All quetsions answered to patients satisfaction. Patient verbalized understanding of diagnosis and treatments explained. To call sooner prior to next visit it any questions/concerns arise. Case discussed with collaborating physician Riley Quintero who reviewed the assessment and plan. Chart, medications, labs, vital signs reviewed. Dictation was accomplished with the use of [employer] voice recognition software, prone to medical misidentifications and grammatical errors. This is unintentional and the practitioner does try to identify and correct these, but some could still be present. Please do not hesitate to contact practitioner for clarification. Plan Of Treatment Pending Test Test Name Order Date MRI : Shoulder, left 11/17/2024 X ray : Shoulder, right 06/10/2024 Mammogram 08/25/2022 ABHAY Comprehensive Panel 09/10/2024 ALKALINE PHOSPHATASE 06/10/2024 CRP, HIGH SENSITIVITY 09/10/2024 LIPID PANEL, STANDARD 06/10/2024 THYROID PEROXIDASE AND THYROGLOBULIN ANT IBODIES 04/13/2025 PROGESTERONE 09/10/2024 VITAMIN D,25-OH,TOTAL,IA 06/10/2024 DHEA SULFATE 09/10/2024 TSH+T4F+T3Free 09/10/2024 TSH+T3+Free T4+T3 Free 04/13/2025 THYROTROPIN RECEPTOR ANTIBODY 04/13/2025 Next Appt Details Provider Name:CARLOS BARCENAS, 05/26/2025 02:45:00 PM, [address], [place], [address], Insurance Providers Payer Name Payer Address Payer Phone Subscriber Number Group Number Insured Name Patient Relationship to Insured Coverage Start Date Coverage End Date [facility] [address] [place] [address] [id number] Glenis Menchaca Self - patient is the insured Medications Administered Medication Instructions Date of Administration Dosage Notes MICC B12 INJECTION 10/31/2022 lot # [id number] MICC B12 INJECTION 12/05/2022 MICC B12 INJECTION 01/09/2023 lot [id number] MICC B12 INJECTION 11/17/2024 1 mL Semaglutide 04/12/2023 0.25 mg sema 0.25mg Semaglutide 04/19/2023 0.25 mg LRQ SQ Semaglutide 04/27/2023 0.25 sema 0.25mg Semaglutide 05/04/2023 lot#[id number] 0.25mg Semaglutide 05/11/2023 0.25 mg LRQ SQ Semaglutide 05/18/2023 0.5 mg LRQ SQ Semaglutide 05/24/2023 0.5 sema 0.5mg Semaglutide 05/31/2023 lot#[id number] 0.5mg Semaglutide 06/05/2023 0.5 mg LRQ SQ Semaglutide 06/07/2023 0.5 Semaglutide 06/14/2023 0.5 mg LRQ SQ Semaglutide 06/27/2023 lot#[id number] 0.5mg Semaglutide 07/05/2023 0.5 mg LRQ SQ Semaglutide 07/19/2023 0.5 mg LRQ SQ Semaglutide 07/24/2023 1 mg Medical (General) History Medical History History ICD Code Low alkaline phosphatase GERD (gastroesophageal reflux disease) K 21.9 Anxiety F41.9 Weight gain R63.5 Headache 784.0 Hyperlipidemia E78.5 Surgical History Surgery Date(Month/Year) wisdom teeth biopsy of calcium build up in breast Hospitalization History Reason Date(Month/Year) anxiety 05/2022
--- OUTSIDE RECORDS SUMMARY | 2025-05-05 08:32 | XMS_ITS | Clinical Summary ---
Author Organization [facility] Address [address] [place] [address] Phone Care Team Providers Care Solution Designer Name Role Phone Unavailable Primary Care Provider Unavailabl e Social History Tobacco Use Types Packs/Day Years Used Date Smoking Tobacco: Never Assessed Comments Unknown Sex and Gender Information Value Date Recorded Sex Assigned at Not on file Legal Sex Female 5:48 AM EST Gender Identity Not on file Sexual Orientation Not on file Plan of Treatment Health Maintenance Due Date Last Done Comments DTaP,Tdap,and Td Vaccines (1 - Tdap) 2001 Hepatitis B Vaccines (1 of 3 - 19+ 3-dose series) 2001 Cervical Cancer Screening: Pap Smear 2003 HPV Vaccines (1 - 3-dose SCDM series) 2009 HIV Screening 07/09/2022 Hepatitis C Screening 07/09/2022 Social Influencers of Health Screening 07/09/2022 Depression Screening 08/06/2024 COVID-19 Vaccine ( - season) 2025 Influenza Vaccine (#1) 2025 Breast Cancer Screening 02/19/2026 02/20/20, 02/15/2023, 03/02/2022, Additional history exists RSV Immunization Adult Patients (1 - 1-dose 75+ series) 2057 HIB Vaccines Aged Out No longer eligi ble based on patient's age to complete this topic Hepatitis A Vaccines Aged Out No long er eligible based on patient's age to complete this topic IPV Vaccines Aged Out No longer eligi ble based on patient's age to complete this topic MMR Vaccines Aged Out No longer eligi ble based on patient's age to complete this topic Meningococcal ACWY Vaccine Aged Out N o longer eligible based on patient's age to complete this topic Meningococcal B Vaccine Aged Out No l onger eligible based on patient's age to complete this topic Pneumococcal Vaccine: Pediatrics (0 to 5 Years) and At-Risk Patients (6 to 49 Years) Aged Out No longer eligible based on patient's age to complete this topic RSV Immunization Patients Under 20 months Aged Out No longer eligible based on patient's age to complete this topic Varicella Vaccines Aged Out No longer eligible based on patient's age to complete this topic Procedures Procedure Name Priority Date/Time Associated Diagnosis Comments [facility] SCREENING DIGITAL Routine 02/20/2024 4:50 PM EDT Encounter for screening mammogram for malignant neoplasm of breast from Last 3 Months or Most Recently Relevant to Health Maintenance Results * [facility] SCREENING [facility]IGITAL (02/20/2024 4:50 PM EDT) Anatomical Region Laterality Modality Mammography 02/20/2024 10:5 7 AM EDT Narrative 02/20/2024 4:50 PM EDT [facility] Diagnostic Imaging Department [address] [place] [address] Patient: GLENIS MENCHACA./Age/Sex: 1980 - 43 - F Unit#: [id number] [facility]Ordering Site: [facility] Ordering Physician: HILL KERNS MD [facility] Screening Digital - 02/20/24 - 1121 Report Status:Signed EXAM: [facility] Screening Digital EXAM DATE AND TIME: 02/20/2024 11:31 AM HISTORY: Screening. Left breast biopsy in 2020, pathology benign. Family history of breast carcinoma including 2 paternal aunts and 2 maternal second cousins. COMPARISON: 02/14/23, 03/02/22, 01/17/21 TECHNIQUE: Bilateral digital breast tomosynthesis was performed in the CC and MLO projections. Computer aided detection with [employer] 3D 3.1 was employed. TISSUE DENSITY: c. The breasts are heterogeneously dense, which may obscure small masses. FINDINGS: No suspicious masses, grouped microcalcifications, or areas of architectural distortion are seen. A biopsy marker is again seen in the upper outer left breast. The skin and vascularity are unremarkable. IMPRESSION: Stable mammographic appearance of the breasts. No evidence of malignancy is seen. A negative mammogram in the presence of a clinically suspicious palpable abnormality does not preclude the possibility of malignancy or alter the indications for biopsy. BI-RADS: Category 1: Negative RECOMMENDATION(S): 1: Routine screening mammogram BILATERAL in 1 year. Dictating Physician: SAMMIE SAUER MD Electronically Signed by: SAMMIE SAUER MD Dic Date/Time: 02/20/24 1649 Sign date/Time: 02/20/24 1650 Procedure Note Sammie Sauer MD - 05/21/2024 [facility] Diagnostic Imaging Department [address] [place] [address] Patient: GLENIS MENCHACA./Age/Sex: 1980 - 43 - F Unit#: [id number] [facility]Ordering Site: [facility] Ordering Physician: HILL KERNS MD [facility] Screening Digital - 02/20/24 - 1121 Report Status:Signed EXAM: [facility] Screening Digital EXAM DATE AND TIME: 02/20/2024 11:31 AM HISTORY: Screening. Left breast biopsy in 2020, pathology benign.Family history of breast carcinoma including 2 paternal aunts and 2 maternalsecond cousins. COMPARISON: 02/14/23, 03/02/22, 01/17/21 TECHNIQUE: Bilateral digital breast tomosynthesis was performed in the CCand MLO projections. Computer aided detection with [employer] 3D 3.1was employed. TISSUE DENSITY: c. The breasts are heterogeneously dense, which mayobscure small masses. FINDINGS: No suspicious masses, grouped microcalcifications, or areas ofarchitectural distortion are seen. A biopsy marker is again seen in the upper outerleft breast. The skin and vascularity are unremarkable. IMPRESSION: Stable mammographic appearance of the breasts. No evidence of malignancyis seen. A negative mammogram in the presence of a clinically suspicious palpable abnormality does not preclude the possibility of malignancy or alter the indications for biopsy. BI-RADS: Category 1: Negative RECOMMENDATION(S): 1: Routine screening mammogram BILATERAL in 1 year. Dictating Physician: SAMMIE SAUER MD Electronically Signed by: SAMMIE SAUER MD Dic Date/Time: 02/20/24 1649 Sign date/Time: 02/20/24 1650 Hill Kerns MD IMG BI PROCEDURES Final Resu lt from Last 3 Months or Most Recently Relevant to Health Maintenance Insurance [facility] [place] ([place])
--- OUTSIDE RECORDS SUMMARY | 2025-05-05 08:32 | XMS_ITS | Clinical Summary ---
[facility] Organization [facility] Address [address] [place] [address] Care Team Providers Care Program Trainer Name Role Phone Unavailable Primary Care Provider Unavailabl e Social History Tobacco Use Types Packs/Day Years Used Date Smoking Tobacco: Never Assessed Sex and Gender Information Value Date Recorded Sex Assigned at Not on file Gender Identity Not on file Sexual Orientation Not on file Job Start Date Occupation Industry Not on file Not on file Not on file Plan of Treatment Health Maintenance Due Date Last Done Comments Hepatitis B Vaccines (1 of 3 - 3-dose series) 1982 Hepatitis C Screening 1982 COVID-19 Vaccine (#1) 03/29/1983 Depression Screening 1994 Preventative Health Evaluation 2000 DTap / Tdap / Td (1 - Tdap) 2001 Cervical Cancer Screening (P ap Smear) 2003 Influenza Vaccine (#1) 2025 Pneumococcal Vaccine Aged Out No long er eligible based on patient's age to complete this topic RSV Ped < 20 months Aged Out No longe r eligible based on patient's age to complete this topic
== END 2025-05-05 09:04 | disposition home or self-care (01) ==
LOC: HO.HSM 08:16
PROVIDERS: PCP Internal Medicine; Visit Provider Nurse Practitioner
DX: G43.709 Chronic migraine without aura, not intractable, without status migrainosus (principal)
CPT/HCPCS: 99204

== ENCOUNTER → 2025-06-08 15:48 | Outpatient (BNV) | payer BC, SELFPAY | PROVIDERS: Visit Provider Radiology Diagnostic Radiology | DX: R51.9 Headache, unspecified (principal) | CPT/HCPCS: 70546; 70551 ==

== ENCOUNTER 2025-06-08 16:03 | Outpatient (REF) | payer BC, SELFPAY ==
--- OUTSIDE RECORDS SUMMARY | 2024-12-22 06:15 | XMS_ITS ---
Author Organization [facility] Address [address] [place] [address] Care Team Providers Care Potato Peeling Machine Operator Name Role Phone CARLOS BARCENAS Unavailable [phone] Encounters Encounter Location Date Provider Diagnosis [facility] [address] [place] [address] 12/22/2024 CARLOS BARCENAS Plan Of Treatment Next Appt Details Provider Name:CARLOS BARCENAS, 08/10/2025 03:00:00 PM, [address], [place], [address], Progress Notes * Glenis MENCHACADOB: 3 (44 yo F)Acc No.[id number]:12/22/2024 Patient: Nettie Glenis SCHMIDT Provider: Josefina MATHEW PA-C :1980 A ge:44 Y S ex:Female Date:12/22/2024 Address:[address] [place], [place] [id number] Subjective: * Chief Complaints: * * Medical History: Objective: * Vitals: Assessment: Plan: * Treatment: * Images: Billing Information: * Visit Code: * Procedure Codes: * Electronic signature of HANNAH BARCENAS PA-C on 06/08/2025 at 05:07 PM EST Sign off status: Pending * Provider: Josefina MATHEW PA-C Date: 0 12/22/2024 Generated for Mitchel rojo/Tamir/eTransmitting on: 1 08/08/2024 05:07 PM EST
--- OUTSIDE RECORDS SUMMARY | 2025-05-26 09:45 | XMS_ITS ---
Author Organization [facility] [address] Address [address] [place] [address] Care Team Providers Care Dry Food Products Mixer Name Role Phone CARLOS BARCENAS Unavailable [phone] Encounters Encounter Location Date Provider Diagnosis [facility] [address] [place] [address] 05/26/2025 CARLOS BARCENAS Plan Of Treatment Next Appt Details Provider Name:CARLOS BARCENAS, 08/10/2025 03:00:00 PM, [address], [place], [address], Progress Notes * Glenis MENCHACADOB: [birth year] (44 yo F)Acc No.[id number]:05/26/2025 Patient: Nettie Glenis SCHMIDT Provider: Josefina MATHEW PA-C :1980 A ge:44 Y S ex:Female Date:05/26/2025 Address:[address] [place], [place] [id number] Subjective: * Chief Complaints: * * Medical History: Objective: * Vitals: Assessment: Plan: * Treatment: * Images: Billing Information: * Visit Code: * Procedure Codes: * Electronic signature of HANNAH BARCENAS PA-C on 06/08/2025 at 05:07 PM EST Sign off status: Pending * Provider: Josefina MATHEW PA-C Date: Generated for Mitchel rojo/Tamir/eTransmitting on: 08/08/2024 05:07 PM EST
--- NOTE | ~2025-06-08 | MR_ITS ---
EXAMINATION: MR BRAIN WITHOUT CONTRAST CLINICAL INFORMATION: R 51.9. Headache. COMPARISON: None available. TECHNIQUE: MRI of the brain was obtained using routine sequences without contrast. FINDINGS: No restricted diffusion. No acute intracranial hemorrhage, mass effect, midline shift, hydrocephalus or herniation. Laughlin-white matter differentiation is normal. Posterior cranial fossa contents demonstrated no signal abnormality or mass effect. Craniocervical junction is intact with normal position of the cerebellar tonsils. Flow-void signal within the main cerebral vessels is normal. Sellar/suprasellar region demonstrated no signal abnormality or gross masses. MR/MR venography head wo/w con IMPRESSION: No acute or structural brain abnormality. EXAMINATION: MR ANGIOGRAPHY BRAIN WITHOUT CONTRAST CLINICAL INFORMATION: R 51.9. Headache. COMPARISON: None available. TECHNIQUE: 3-D [id number]. Maximum intensity projections [place]. FINDINGS: Anterior cerebral circulation: ICAs: No flow signal gap or abrupt cut off. No gross flow signal abnormality at the ICA terminus. MCA's: No flow signal gap or abrupt cut off. Bifurcation/trifurcation demonstrated no flow signal irregularity. ACAs: No flow signal gap or abrupt cut off. Anterior communicating artery flow signal is present without gross abnormality. Ophthalmic arteries flow signal is present without gross abnormality. Left posterior communicating artery flow signal is present without abnormality. Posterior cerebral circulation: V3/V4 segments flow signal is present without abrupt cut off or intraluminal signal abnormality. Codominant. Posterior inferior cerebral arteries flow signal is present without abnormality. Anterior inferior cerebellar arteries flow signal is present without abnormality. Basilar artery: No flow signal gap or abrupt cut off or intraluminal signal abnormality. Superior cerebellar arteries flow signal is normal. manager implementation: No flow signal gap or abrupt cut off. No gross abnormality. IMPRESSION: No main cerebral artery occlusion or embolus or aneurysm. EXAMINATION: MR VENOGRAPHY BRAIN WITHOUT AND WITH CONTRAST CLINICAL INFORMATION: R 51.9. Headache. COMPARISON: None available. TECHNIQUE: 2-D [id number]-[id number]. Maximum intensity projections Sagittal twist. Total of 10 cc of gadolinium based given in the without reported immediate complications. FINDINGS: Superior sagittal sinus, internal cerebral veins, vein of Harish, straight sinus, torcula, transverse and sigmoid venous sinuses and jugular bulbs are patent without intraluminal filling defects. There is a dominant right side. IMPRESSION: No main cerebral venous sinus thrombosis. Electronically signed by: Jim Saucedo MD 06/09/2025 06:33 AM EST
--- NOTE | ~2025-06-08 | MR_ITS ---
EXAMINATION: MR BRAIN WITHOUT CONTRAST CLINICAL INFORMATION: R 51.9. Headache. COMPARISON: None available. TECHNIQUE: MRI of the brain was obtained using routine sequences without contrast. FINDINGS: No restricted diffusion. No acute intracranial hemorrhage, mass effect, midline shift, hydrocephalus or herniation. Laughlin-white matter differentiation is normal. Posterior cranial fossa contents demonstrated no signal abnormality or mass effect. Craniocervical junction is intact with normal position of the cerebellar tonsils. Flow-void signal within the main cerebral vessels is normal. Sellar/suprasellar region demonstrated no signal abnormality or gross masses. MR/MR angio head wo con IMPRESSION: No acute or structural brain abnormality. EXAMINATION: MR ANGIOGRAPHY BRAIN WITHOUT CONTRAST CLINICAL INFORMATION: R 51.9. Headache. COMPARISON: None available. TECHNIQUE: 3-D [id number]. Maximum intensity projections [place]. FINDINGS: Anterior cerebral circulation: ICAs: No flow signal gap or abrupt cut off. No gross flow signal abnormality at the ICA terminus. MCA's: No flow signal gap or abrupt cut off. Bifurcation/trifurcation demonstrated no flow signal irregularity. ACAs: No flow signal gap or abrupt cut off. Anterior communicating artery flow signal is present without gross abnormality. Ophthalmic arteries flow signal is present without gross abnormality. Left posterior communicating artery flow signal is present without abnormality. Posterior cerebral circulation: V3/V4 segments flow signal is present without abrupt cut off or intraluminal signal abnormality. Codominant. Posterior inferior cerebral arteries flow signal is present without abnormality. Anterior inferior cerebellar arteries flow signal is present without abnormality. Basilar artery: No flow signal gap or abrupt cut off or intraluminal signal abnormality. Superior cerebellar arteries flow signal is normal. 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 No gross abnormality. IMPRESSION: No main cerebral artery occlusion or embolus or aneurysm. EXAMINATION: MR VENOGRAPHY BRAIN WITHOUT AND WITH CONTRAST CLINICAL INFORMATION: R 51.9. Headache. COMPARISON: None available. TECHNIQUE: 2-D [id number]-ob-faudun. Maximum intensity projections Sagittal twist. Total of 10 cc of gadolinium based given in the without reported immediate complications. FINDINGS: Superior sagittal sinus, internal cerebral veins, vein of Harish, straight sinus, torcula, transverse and sigmoid venous sinuses and jugular bulbs are patent without intraluminal filling defects. There is a dominant right side. IMPRESSION: No main cerebral venous sinus thrombosis. Electronically signed by: Jim Saucedo MD 06/09/2025 06:33 AM EST RP
--- NOTE | ~2025-06-08 | MR_ITS ---
EXAMINATION: MR BRAIN WITHOUT CONTRAST CLINICAL INFORMATION: R 51.9. Headache. COMPARISON: None available. TECHNIQUE: MRI of the brain was obtained using routine sequences without contrast. FINDINGS: No restricted diffusion. No acute intracranial hemorrhage, mass effect, midline shift, hydrocephalus or herniation. Laughlin-white matter differentiation is normal. Posterior cranial fossa contents demonstrated no signal abnormality or mass effect. Craniocervical junction is intact with normal position of the cerebellar tonsils. Flow-void signal within the main cerebral vessels is normal. Sellar/suprasellar region demonstrated no signal abnormality or gross masses. MR/MR head/brain wo con IMPRESSION: No acute or structural brain abnormality. EXAMINATION: MR ANGIOGRAPHY BRAIN WITHOUT CONTRAST CLINICAL INFORMATION: R 51.9. Headache. COMPARISON: None available. TECHNIQUE: 3-D [id number]-[id number]. Maximum intensity projections [place]. FINDINGS: Anterior cerebral circulation: ICAs: No flow signal gap or abrupt cut off. No gross flow signal abnormality at the ICA terminus. MCA's: No flow signal gap or abrupt cut off. Bifurcation/trifurcation demonstrated no flow signal irregularity. ACAs: No flow signal gap or abrupt cut off. Anterior communicating artery flow signal is present without gross abnormality. Ophthalmic arteries flow signal is present without gross abnormality. Left posterior communicating artery flow signal is present without abnormality. Posterior cerebral circulation: V3/V4 segments flow signal is present without abrupt cut off or intraluminal signal abnormality. Codominant. Posterior inferior cerebral arteries flow signal is present without abnormality. Anterior inferior cerebellar arteries flow signal is present without abnormality. Basilar artery: No flow signal gap or abrupt cut off or intraluminal signal abnormality. Superior cerebellar arteries flow signal is normal. 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 No gross abnormality. IMPRESSION: No main cerebral artery occlusion or embolus or aneurysm. EXAMINATION: MR VENOGRAPHY BRAIN WITHOUT AND WITH CONTRAST CLINICAL INFORMATION: R 51.9. Headache. COMPARISON: None available. TECHNIQUE: 2-D lfud-jy-nagyca. Maximum intensity projections Sagittal twist. Total of 10 cc of gadolinium based given in the without reported immediate complications. FINDINGS: Superior sagittal sinus, internal cerebral veins, vein of Harish, straight sinus, torcula, transverse and sigmoid venous sinuses and jugular bulbs are patent without intraluminal filling defects. There is a dominant right side. IMPRESSION: No main cerebral venous sinus thrombosis. Electronically signed by: Jim Saucedo MD 06/09/2025 06:33 AM EST RP
--- OUTSIDE RECORDS SUMMARY | 2025-06-08 03:00 | XMS_ITS ---
[facility] Address [address] [place] [address] Care Team Providers Care Leadership Coach Name Role Phone CARLOS BARCENAS Unavailable [phone] Allergies Allergen (clinical drug ingredient) Drug/Non Drug Allergy documented on EMR Reaction Allergy Type Onset Date Status covid vaccine (uncoded) hives and chest pain Allergy Active Vaccine product containing Influenza virus antigen (medicinal product) flu shot (uncoded) hives Allergy Ac tive acetaminophen / oxycodone Percocet hives Drug Allergy Active REASON FOR VISIT pt is here for weight management follow up seca pd Medications Medication SIG (Take, Route, Frequency, Duration) Notes Start Date End Date Status Escitalopram Oxalate 5 MG TAKE 1 TABLET BY MOUTH EVERY DAY; Duration: 90 Active Omeprazole 40 MG TAKE 1 CAPSULE BY [facility] EVERY DAY 30 MINUTES BEFORE MORNING MEAL FOR 90 DAYS; Duration: 90 Active Rosuvastatin Calcium 10 MG 1 tablet Oral ly Once a day; Duration: 90 days Active SUMAtriptan Succinate 25 MG 25 mg prn, a dditional dose 2 hours later prn Orally daily; Duration: 15 days 06/10/2024 Active Wegovy 1.7 MG/0.75ML 1.7 mg; Duration: 30 days Active Social History Tobacco Use: Social History Observation Description Date Details (start date - stop date) Never Smoker NA - NA Tobacco Use/Smoking Question Answer Notes Are you a nonsmoker Section Notes: Tob: denies current use alcohol: socially drug: denies caffeine: coffee daily exercise: enjoys 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 Vital Signs Heart Rate 86 /min 06/08/2025 Blood pressure systolic 122 mm Hg 06/08/20 25 Blood pressure diastolic 78 mm Hg 025 Weight 219.4 lbs 06/08/2025 BMI 32.4 kg/m2 06/08/2025 Height 69 in 06/08/2025 Oximetry 95 % 06/08/2025 Encounters Encounter Location Date Provider Diagnosis [facility] [address] [place] [address] 06/08/2025 CARLOS SWAPNA Obesity (BMI 30-39.9 ) E66.9 ; BMI 32.0-32.9,adult Z68.32 ; Pain, joint, shoulder, left M25.512 ; Anxiety F41.9 ; Mixed hyperlipidemia E78.2 ; Episodic migraine G43.909 ; Nutritional counseling Z71.3 ; Hair loss L65.9 and Encounter for examination of blood pressure without abnormal findings Z01.30 Assessments Encounter Date Diagnosis (ICD Code) Assessment Notes Treatment Notes Treatment Clinical Notes Section Notes 06/08/2025 Obesity (BMI 30-39.9) (ICD-10 - E66.9) 10/03/22: [...] educated on lifestyle modifications. Patient went to [place], and then went to [place] and states that she has been traveling [...] in addition to walking as tolerated. Contacted [facility] in [place] who states they cannot dispense Saxenda secondary to supply issues. Called [facility], and Saxenda continues to be on backorder until unknown date. Will send to other [facility] pharmacy in [place], but patient will continue to call pharmacies [...] will trial contrave first. Discussed referral for b2b sales consultant, Patient declines at this time. Follow up [...] daily, and focusing on increasing resistance training. 06/08/2025: Weight 219, BMI 32. Doing well on Wegovy 1 mg increased to 1.7. Focusing on more resistance training, following up in 4 weeks # Hair loss: Ongoing hair loss/fatigue. TSH, [...] Wart of left hand, refer to dermatology. Tarm-rcu-awanknw regimen not helping # Migraines: Adequate nutrition/hydration. [...] the next 3 weeks for cortisone injections. # Following with neurology closely for migraines. Sumatriptan but avoiding secondary to side effects, scheduled for MRI of the brain today 06/08/2025. No longer taking Excedrin, taking ibuprofen and magnesium. Follow-up in 4-6 weeks, or sooner if [...] Dictation was accomplished with the use of Nearbox voice recognition software, prone to medical misidentifications and grammatical errors. This is unintentional and the practitioner does try to identify and correct these, but some could still be present. Please do not hesitate to contact practitioner for clarification. 06/08/2025 BMI 32.0-32.9,adult (ICD-10 - Z68.32) 10/03/22: Weight [...] educated on lifestyle modifications. Patient went to [place], and then went to [place] and states that she has been traveling [...] loss, could consider GLP-1 injection such as Siomara next visit, as at that time, patient [...] in addition to walking as tolerated. Contacted [facility] pharmacy in [place] who states they cannot dispense Saxenda secondary to supply issues. Called [facility], and Saxenda continues to be on backorder until unknown date. Will send to other [facility] pharmacy in [place], but patient will continue to call pharmacies [...] will trial contrave first. Discussed referral for b2b sales consultant, Patient declines at this time. Follow up [...] daily, and focusing on increasing resistance training. 06/08/2025: Weight 219, BMI 32. Doing well on Wegovy 1 mg increased to 1.7. Focusing on more resistance training, following up in 4 weeks # Hair loss: Ongoing hair loss/fatigue. TSH, [...] Wart of left hand, refer to dermatology. Pvwv-lfs-gwxzyww regimen not helping # Migraines: Adequate nutrition/hydration. [...] the next 3 weeks for cortisone injections. # Following with neurology closely for migraines. Sumatriptan but avoiding secondary to side effects, scheduled for MRI of the brain today 06/08/2025. No longer taking Excedrin, taking ibuprofen and magnesium. Follow-up in 4-6 weeks, or sooner if [...] Dictation was accomplished with the use of Dragon voice recognition software, prone to medical misidentifications and grammatical errors. This is unintentional and the practitioner does try to identify and correct these, but some could still be present. Please do not hesitate to contact practitioner for clarification. 06/08/2025 Pain, joint, shoulder, left (ICD-10 - M25.512) [...] educated on lifestyle modifications. Patient went to [place], and then went to [place] and states that she has been traveling [...] in addition to walking as tolerated. Contacted [facility] pharmacy in [place] who states they cannot dispense Saxenda secondary to supply issues. Called [facility], and Saxenda continues to be on backorder until unknown date. Will send to other [facility] pharmacy in [place], but patient will continue to call pharmacies [...] will trial contrave first. Discussed referral for b2b sales consultant, Patient declines at this time. Follow up [...] daily, and focusing on increasing resistance training. 06/08/2025: Weight 219, BMI 32. Doing well on Wegovy 1 mg increased to 1.7. Focusing on more resistance training, following up in 4 weeks # Hair loss: Ongoing hair loss/fatigue. TSH, [...] Wart of left hand, refer to dermatology. Czbs-raa-kbjjplq regimen not helping # Migraines: Adequate nutrition/hydration. [...] the next 3 weeks for cortisone injections. # Following with neurology closely for migraines. Sumatriptan but avoiding secondary to side effects, scheduled for MRI of the brain today 06/08/2025. No longer taking Excedrin, taking ibuprofen and magnesium. Follow-up in 4-6 weeks, or sooner if [...] Dictation was accomplished with the use of Nearbox voice recognition software, prone to medical misidentifications and grammatical errors. This is unintentional and the practitioner does try to identify and correct these, but some could still be present. Please do not hesitate to contact practitioner for clarification. 06/08/2025 Anxiety (ICD-10 - F41.9) 2/28/23: Weight 211, BMI 31.16- educated extensively on [...] educated on lifestyle modifications. Patient went to [place], and then went to [place] and states that she has been traveling [...] in addition to walking as tolerated. Contacted [facility] in [place] who states they cannot dispense Saxenda secondary to supply issues. Called [facility], and Saxenda continues to be on backorder until unknown date. Will send to other [facility] pharmacy in [place], but patient will continue to call pharmacies [...] will trial contrave first. Discussed referral for b2b sales consultant, Patient declines at this time. Follow up [...] daily, and focusing on increasing resistance training. 06/08/2025: Weight 219, BMI 32. Doing well on Wegovy 1 mg increased to 1.7. Focusing on more resistance training, following up in 4 weeks # Hair loss: Ongoing hair loss/fatigue. TSH, [...] Wart of left hand, refer to dermatology. Denc-yin-kufiewm regimen not helping # Migraines: Adequate nutrition/hydration. [...] the next 3 weeks for cortisone injections. # Following with neurology closely for migraines. Sumatriptan but avoiding secondary to side effects, scheduled for MRI of the brain today 06/08/2025. No longer taking Excedrin, taking ibuprofen and magnesium. Follow-up in 4-6 weeks, or sooner if [...] Dictation was accomplished with the use of Nearbox voice recognition software, prone to medical misidentifications and grammatical errors. This is unintentional and the practitioner does try to identify and correct these, but some could still be present. Please do not hesitate to contact practitioner for clarification. 06/08/2025 Mixed hyperlipidemia (ICD-10 - E78.2) 10/03/22: Weight [...] educated on lifestyle modifications. Patient went to [place], and then went to [place] and states that she has been traveling [...] in addition to walking as tolerated. Contacted [facility] in [place] who states they cannot dispense Saxenda secondary to supply issues. Called [facility], and Saxenda continues to be on backorder until unknown date. Will send to other [facility] pharmacy in [place], but patient will continue to call pharmacies [...] will trial contrave first. Discussed referral for b2b sales consultant, Patient declines at this time. Follow up [...] daily, and focusing on increasing resistance training. 06/08/2025: Weight 219, BMI 32. Doing well on Wegovy 1 mg increased to 1.7. Focusing on more resistance training, following up in 4 weeks # Hair loss: Ongoing hair loss/fatigue. TSH, [...] Wart of left hand, refer to dermatology. Tbyd-uni-sfkwgka regimen not helping # Migraines: Adequate nutrition/hydration. [...] the next 3 weeks for cortisone injections. # Following with neurology closely for migraines. Sumatriptan but avoiding secondary to side effects, scheduled for MRI of the brain today 06/08/2025. No longer taking Excedrin, taking ibuprofen and magnesium. Follow-up in 4-6 weeks, or sooner if [...] Dictation was accomplished with the use of Nearbox voice recognition software, prone to medical misidentifications and grammatical errors. This is unintentional and the practitioner does try to identify and correct these, but some could still be present. Please do not hesitate to contact practitioner for clarification. 06/08/2025 Episodic migraine (ICD-10 - G43.909) 10/03/22: Weight [...] educated on lifestyle modifications. Patient went to [place], and then went to [place] and states that she has been traveling [...] in addition to walking as tolerated. Contacted [facility] in [place] who states they cannot dispense Saxenda secondary to supply issues. Called [facility], and Saxenda continues to be on backorder until unknown date. Will send to other [facility] pharmacy in [place], but patient will continue to call pharmacies [...] will trial contrave first. Discussed referral for b2b sales consultant, Patient declines at this time. Follow up [...] daily, and focusing on increasing resistance training. 06/08/2025: Weight 219, BMI 32. Doing well on Wegovy 1 mg increased to 1.7. Focusing on more resistance training, following up in 4 weeks # Hair loss: Ongoing hair loss/fatigue. TSH, [...] Wart of left hand, refer to dermatology. Ctst-mfm-fcusrip regimen not helping # Migraines: Adequate nutrition/hydration. [...] the next 3 weeks for cortisone injections. # Following with neurology closely for migraines. Sumatriptan but avoiding secondary to side effects, scheduled for MRI of the brain today 06/08/2025. No longer taking Excedrin, taking ibuprofen and magnesium. Follow-up in 4-6 weeks, or sooner if [...] Dictation was accomplished with the use of Nearbox voice recognition software, prone to medical misidentifications and grammatical errors. This is unintentional and the practitioner does try to identify and correct these, but some could still be present. Please do not hesitate to contact practitioner for clarification. 06/08/2025 Nutritional counseling (ICD-10 - Z71.3) 10/03/22: Weight [...] educated on lifestyle modifications. Patient went to [place], and then went to [place] and states that she has been traveling [...] in addition to walking as tolerated. Contacted [facility] in [place] who states they cannot dispense Saxenda secondary to supply issues. Called [facility], and Saxenda continues to be on backorder until unknown date. Will send to other [facility] pharmacy in [place], but patient will continue to call pharmacies [...] will trial contrave first. Discussed referral for b2b sales consultant, Patient declines at this time. Follow up [...] daily, and focusing on increasing resistance training. 06/08/2025: Weight 219, BMI 32. Doing well on Wegovy 1 mg increased to 1.7. Focusing on more resistance training, following up in 4 weeks # Hair loss: Ongoing hair loss/fatigue. TSH, [...] Wart of left hand, refer to dermatology. Ttwc-thq-wibhzvn regimen not helping # Migraines: Adequate nutrition/hydration. [...] the next 3 weeks for cortisone injections. # Following with neurology closely for migraines. Sumatriptan but avoiding secondary to side effects, scheduled for MRI of the brain today 06/08/2025. No longer taking Excedrin, taking ibuprofen and magnesium. Follow-up in 4-6 weeks, or sooner if [...] Dictation was accomplished with the use of Nearbox voice recognition software, prone to medical misidentifications and grammatical errors. This is unintentional and the practitioner does try to identify and correct these, but some could still be present. Please do not hesitate to contact practitioner for clarification. 06/08/2025 Hair loss (ICD-10 - L65.9) 10/03/22: Weight [...] educated on lifestyle modifications. Patient went to [place], and then went to [place] and states that she has been traveling [...] in addition to walking as tolerated. Contacted [facility] in [place] who states they cannot dispense Saxenda secondary to supply issues. Called [facility], and Saxenda continues to be on backorder until unknown date. Will send to other [facility] pharmacy in [place], but patient will continue to call pharmacies [...] will trial contrave first. Discussed referral for b2b sales consultant, Patient declines at this time. Follow up [...] daily, and focusing on increasing resistance training. 06/08/2025: Weight 219, BMI 32. Doing well on Wegovy 1 mg increased to 1.7. Focusing on more resistance training, following up in 4 weeks # Hair loss: Ongoing hair loss/fatigue. TSH, [...] Wart of left hand, refer to dermatology. Oxvc-sda-zvhttjp regimen not helping # Migraines: Adequate nutrition/hydration. [...] the next 3 weeks for cortisone injections. # Following with neurology closely for migraines. Sumatriptan but avoiding secondary to side effects, scheduled for MRI of the brain today 06/08/2025. No longer taking Excedrin, taking ibuprofen and magnesium. Follow-up in 4-6 weeks, or sooner if [...] Dictation was accomplished with the use of Nearbox voice recognition software, prone to medical misidentifications and grammatical errors. This is unintentional and the practitioner does try to identify and correct these, but some could still be present. Please do not hesitate to contact practitioner for clarification. 06/08/2025 Encounter for examination of blood pressure without [...] educated on lifestyle modifications. Patient went to [place], and then went to [place] and states that she has been traveling [...] in addition to walking as tolerated. Contacted [facility] in [place] who states they cannot dispense Saxenda secondary to supply issues. Called [facility], and Saxenda continues to be on backorder until unknown date. Will send to other [facility] pharmacy in [place], but patient will continue to call pharmacies [...] will trial contrave first. Discussed referral for b2b sales consultant, Patient declines at this time. Follow up [...] daily, and focusing on increasing resistance training. 06/08/2025: Weight 219, BMI 32. Doing well on Wegovy 1 mg increased to 1.7. Focusing on more resistance training, following up in 4 weeks # Hair loss: Ongoing hair loss/fatigue. TSH, [...] Wart of left hand, refer to dermatology. Xtzw-emr-mzzlpsk regimen not helping # Migraines: Adequate nutrition/hydration. [...] the next 3 weeks for cortisone injections. # Following with neurology closely for migraines. Sumatriptan but avoiding secondary to side effects, scheduled for MRI of the brain today 06/08/2025. No longer taking Excedrin, taking ibuprofen and magnesium. Follow-up in 4-6 weeks, or sooner if [...] Dictation was accomplished with the use of Nearbox voice recognition software, prone to medical misidentifications and grammatical errors. This is unintentional and the practitioner does try to identify and correct these, but some could still be present. Please do not hesitate to contact practitioner for clarification. Plan Of Treatment Medication Medication Name Sig Start Date Stop Date Notes Rosuvastatin Calcium 10 MG 1 tablet Oral ly Once a day; Duration: 90 days Wegovy 1.7 MG/0.75ML 1.7 mg; Duration: 30 days Next Appt Details Provider Name:CARLOS BARCENAS, 08/10/2025 03:00:00 PM, [address], [place], [address], Progress Notes * Glenis MENCHACADOB: 3 (44 yo F)Acc No.[id number]:06/08/2025 Patient: Glenis FERGUSON Provider: Josefina MATHEW PA-C :1980 A ge:44 Y S ex:Female Date:06/08/2025 Address:[address] [place] [address], [id number] Subjective: * Chief Complaints: * 1 . Pt is here for weight management follow up stefano christensen. * HPI: C onstitutional: Glenis is a pleasant 45-year-old female who presents the office for a weight management follow-up. Last seen April 13, 2025. Weight at that time 221 with a BMI of 32. Taking Wegovy 1 mg, focusing on walking daily, and increasing resistance training, following up today. Feeling well and no side effects. Has continued to lose weight. Walking regularly but less than 3 miles now because of the dark and cold. Has been doing the [employer] plate twice-weekly on the weekends. Nutrition she is also doing well. Cereal in the AM with coffee. Lunch is sandwich and soup or salads at [facility] who is a nutrition individual with her own dressing. Doing well with water intake. Milagros was d/c. MRI today for her headahces ordered by neurology. Migraines are getting worse. Not taking excedrin but is taking ibuprofen and magnesium. Also not taking sumatriptan becuase of side effects of worsening nausea. * ROS: C onstitutional: Denies sudden weight loss, fever, night sweats, + excessive fatigue, or changes in sleep. CV: Denies chest pain or heart palpitations. Respiratory: Denies SOB, no cough, hemoptysis, no sputum production, wheezing, or pleuritic pain. GI: Denies nausea, vomiting, diarrhea, constipation, or blood in stools. Denies pain associated with eating, regurgitation, or difficultly/pain with swallowing. MSK: Denies back pain, + joint deformity/pain, or muscle weakness. Integumentary: Denies skin changes. Neuro: Denies memory loss, confusion, localized weakness, dizziness, numbness or tingling. Psychiatric: + current depression, anxiety, or suicidal thoughts. Feels safe at home. Endocrine: Denies polyuria, polyphagia, or polydipsia. No heat/cold intolerance or excessive thirst. * Medical History: L ow alkaline phosphatase, GERD (gastroesophageal reflux disease), Anxiety, Weight gain, Headache, Hyperlipidemia. * Surgical History: w isdom teeth , biopsy of calcium build up in breast . * Hospitalization/Major Diagno stic Procedure: a nxiety 05/2022. * Family History: F ather: alive 65 yrs. M other: alive 65 yrs. 1 brother(s) , 1 sister(s) - healthy. .? Family Hx: cancer, heart disease, osteoporosis, memory problems paternal grandfather: pancreatic cancer mother grandfather: lung cancer paternal aunts: breast cancer maternal uncle: Heart attack at 48 and passed cousin has heart attack at 68 MGM: dementia. * Social History: T obacco Use: T obacco Use/Smoking A re you a n onsmoker. 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 * Medications: T aking SUMAtriptan Succinate 25 MG Tablet 25 mg prn, additional dose 2 hours later prn Orally daily , Taking Rosuvastatin Calcium 10 MG Tablet 1 tablet Orally Once a day , Taking Omeprazole 40 MG Capsule Delayed Release TAKE 1 CAPSULE BY MOUTH EVERY DAY 30 MINUTES BEFORE MORNING MEAL FOR 90 DAYS , Taking Escitalopram Oxalate 5 MG Tablet TAKE 1 TABLET BY MOUTH EVERY DAY , Taking Wegovy 1 MG/0.5ML Solution Auto- injector 1 mg , Discontinued Contrave 8-90 MG Tablet Extended Release 12 Hour 2 tablets Orally Twice a day , Discontinued Wegovy 0.5 MG/0.5ML Solution Auto-injector INJECT 0.5 MG SUBCUTANEOUSLY ONCE WEEKLY , Medication List reviewed and reconciled with the patient * Allergies: f danielle shot: hives - Side Effects, covid vaccine: hives and chest pain - Side Effects, Percocet: hives. Objective: * Vitals: H R:86/min, BP:122/78mm Hg, Wt:219.4lbs, BMI:32.4Index, Ht: 69 in, Oxygen sat %:95%. * Physical Examination: G eneral: Well appearing 44-year-old female in no acute distress, speaking in full sentences without respiratory compromise. Well groomed, well developed. Alert, interactive. Skin: Warm, dry and intact. No lesions/rashes/erythema. Neck/Thyroid: Supple, with no lymphadenopathy. Full ROM. Lungs: Clear to auscultation bilaterally, no wheezes, rales or rhonchi. Equal chest rise and fall bilaterally. CV: No murmurs/rubs or gallops on auscultation. Abdomen: Soft and nontender to palpation. No rebound/guarding. Normoactive bowel sounds. No palpable masses. No CVA tenderness. MSK- +LT shoulder limited ROM, positve Neer Test, pain with active and passive abduction. Full ROM of lower extremities and RT upper extremity. Neuro: CN II-XI grossly intact. Steady gait with ambulation observed. Psych: Stable mood and affect. Assessment: * Assessment: 1. O besity (BMI 30-39.9) - E66.9 (Primary) 2 . B NM 32.0-32.9,adult - Z68.32 3 . P ain, joint, shoulder, left - M25.512 4 . A nxiety - F41.9 5 . M ixed hyperlipidemia - E78.2 6 . E pisodic migraine - G43.909 7 . N utritional counseling - Z71.3 8 . H air loss - L65.9 9 . E ncounter for examination of blood pressure without abnormal findings - Z01.30 10/03/22: Weight 211, BMI 31. 16- educated extensively on lifestyle modifications including high-protein, [...] educated on lifestyle modifications. Patient went to [place], and then went to [place] and states that she has been traveling [...] in addition to walking as tolerated. Contacted [facility] pharmacy in [place] who states they cannot dispense Saxenda secondary to supply issues. Called [facility], and Saxenda continues to be on backorder until unknown date. Will send to other [facility] pharmacy in [place], but patient will continue to call pharmacies [...] off on all weight loss medications and follow- up in 4 weeks. Will obtain blood work prior 11/17/2024 weight 221, BMI 32. start contrave, discussed proper use and side effects, and contact office with any concerns. Discussed reinitiating wegovy in the future, will trial contrave first. Discussed referral for b2b sales consultant, Patient declines at this time. Follow up [...] daily, and focusing on increasing resistance training. 06/08/2025: Weight 219, BMI 32. Doing well on Wegovy 1 mg increased to 1.7. Focusing on more resistance training, following up in 4 weeks # Hair loss: Ongoing hair loss/fatigue. TSH, [...] Wart of left hand, refer to dermatology. [id number]-lay-[id number] regimen not helping # Migraines: Adequate nutrition/hydration. Ibuprofen as needed, no red flag symptoms. Separate control, migraines have been worse since then. She is not interested in getting back on control. Taking sumatriptan as needed. If no improvement could consider alternative abortive/preventative therapies or imaging. #Patient taken Lexapro 5 [...] the next 3 weeks for cortisone injections. # Following with neurology closely for migraines. Sumatriptan but avoiding secondary to side effects, scheduled for MRI of the brain today 06/08/2025. No longer taking Excedrin, taking ibuprofen and magnesium. Follow-up in 4-6 weeks, or sooner if [...] Dictation was accomplished with the use of [employer] voice recognition software, prone to medical misidentifications and grammatical errors. This is unintentional and the practitioner does try to identify and correct these, but some could still be present. Please do not hesitate to contact practitioner for clarification. Plan: * Treatment: 2. O thers Refill Rosuvastatin Calcium Tablet, 10 MG, 1 tablet, Orally, Once a day, 90 days, 90 Tablet, Refills 0. * Procedure Codes: 3 074F SYST BP LT 130 MM HG, 3078F DIAST BP < 80 MM HG, G0447 FCE-FCE BEHAVRL CNSL OBESITY 15 MIN, Modifiers: 59 * Images: Billing Information: * Visit Code: 38870 Office Visit, Est Pt., Level 3. Modifiers: SA * Procedure Codes: 3074F SYST BP LT 130 MM HG. 3078F DIAST BP < 80 MM HG. G0447 FCE-FCE BEHAVRL CNSL OBESITY 15 MIN. Modifiers: 59 * Sign off status: Completed true * Provider: Josefina MATHEW PA-C Date: 08/08/2024 Generated for Mitchel rojo/Tamir/eTransmitting on: 08/08/2024 05:07 PM EST History and Physical Notes * HPI (History of Present Illness) Category Sub-Category Detail Notes Category Not es Constitutional Glenis is a pleasant 45-year-old female who presents the office for a weight management follow-up. Last seen April 13, 2025. Weight at that time 221 with a BMI of 32. Taking Wegovy 1 mg, focusing on walking daily, and increasing resistance training, following up today. Feeling well and no side effects. Has continued to lose weight. Walking regularly but less than 3 miles now because of the dark and cold. Has been doing the twist plate twice-weekly on the weekends. Nutrition she is also doing well. Cereal in the AM with coffee. Lunch is sandwich and soup or salads at [facility] who is a nutrition individual with her own dressing. Doing well with water intake. Milagros was d/c. MRI today for her headahces ordered by neurology. Migraines are getting worse. Not taking excedrin but is taking ibuprofen and magnesium. Also not taking sumatriptan becuase of side effects of worsening nausea. Physical Examination Category Sub-Category Detail Notes Section Note s General: Well appearing 44-year-old female in no acute distress, speaking in full sentences without respiratory compromise. Well groomed, well developed. Alert, interactive. Skin: Warm, dry and intact. No lesions/rashes/erythema. Neck/Thyroid: Supple, with no lymphadenopathy. Full ROM. Lungs: Clear to auscultation bilaterally, no wheezes, rales or rhonchi. Equal chest rise and fall bilaterally. CV: No murmurs/rubs or gallops on auscultation. Abdomen: Soft and nontender to palpation. No rebound/guarding. Normoactive bowel sounds. No palpable masses. No CVA tenderness. MSK- +LT shoulder limited ROM, positve Neer Test, pain with active and passive abduction. Full ROM of lower extremities and RT upper extremity. Neuro: CN II-XI grossly intact. Steady gait with ambulation observed. Psych: Stable mood and affect.
--- OUTSIDE RECORDS SUMMARY | 2025-06-08 17:08 | XMS_ITS | Patient Health Record ---
Author Organization [facility] [address] Address [address] [place] [address] Care Team Providers Care Historic Preservationist Name Role Phone CARLOS BARCENAS [phone] Allergies Allergen (clinical drug ingredient) Drug/Non Drug Allergy documented on EMR Reaction Allergy Type Onset Date Status covid vaccine (uncoded) hives and chest pain Allergy Active Vaccine product containing Influenza virus antigen (medicinal product) flu shot (uncoded) hives Allergy Ac tive acetaminophen / oxycodone Percocet hives Drug Allergy Active Results Component Value Reference Range Notes TRAB Reviewed date:05/13/2025 01:37:55 PM Interpretation: Performing Lab:Neeru SAMS/Alberto MckeonMike [id number] Brice Aceves, ZbwwjwskwKN[address] Dario Galvez M.D.,PhD Notes/Report: TRAB <1.00 <=2.00 IU/L This test was performed using the TRAb Antibody JEFFREY method which is standardized against the 1st International Standard 90/672 and is reported in International Units (IU/L). The reference range reported was established specifically for this test method. T3, FREE Reviewed date:05/11/2025 04:29:14 PM Interpretation: Performing Lab:[facility]OS[address] Bola Fowler Notes/Report: T3, FREE 3.3 2.3-4.2 pg/mL TSH W/REFLEX TO FT4 Reviewed date:05/11/2025 04:29:14 PM Interpretation: Performing Lab:[facility] Bola Rubinst. [facility] Notes/Report: TSH W/REFLEX TO FT4 1.31 Reference Range > or = 20 Years 0.40-4.50 Ranges First trimester 0.26-2.66 Second trimester 0.55-2.73 Third trimester 0.43-2.91 THYROID PEROXIDASE AND THYRO GLOBULIN ANTIBODIES Reviewed date:05/12/2025 12:50:05 PM Interpretation: Performing Lab:KATY2 [facility] SchoolTuan[address] [id number] [place] [address] Rosaline Rubinst. [facility] Notes/Report: THYROGLOBULIN ANTIBODIES <1 < or = 1 IU/mL THYROID PEROXIDASE ANTIBODIES <1 <9 IU/mL T3, FREE Reviewed date:09/16/2024 08:01:36 AM Interpretation: Performing Lab:[facility]uan[address] [id number] [place] Rosaline Rubinst. [facility] Notes/Report: FASTING:YES FASTING: YES T3, FREE 3.3 2.3-4.2 pg/mL TSH Reviewed date:09/16/2024 08:01:36 AM Interpretation: Performing Lab:[facility] SchoolTuan[address] [place] Rosaline Rubinst. [facility] Notes/Report: FASTING:YES FASTING: YES TSH 2.16 Reference Range > or = 20 Years 0.40-4.50 Ranges First trimester 0.26-2.66 Second trimester 0.55-2.73 Third trimester 0.43-2.91 T4, FREE Reviewed date:09/16/2024 08:01:36 AM Interpretation: Performing Lab:[facility] [employer] SchoolTuan[address] [place] Rosaline Rubinst. [facility] Notes/Report: FASTING:YES FASTING: YES T4, FREE 1.1 0.8-1.8 ng/dL DHEA SULFATE Reviewed date:09/16/2024 08:01:36 AM Interpretation: Performing Lab:[facility] [employer] SchoolTuan[address] Bola Resendizjose guadalupe Notes/Report: FASTING:YES FASTING: YES DHEA SULFATE 48 15-205 mcg/dL HS CRP Reviewed date:09/16/2024 08:01:36 AM Interpretation: Performing Lab:NL2, [facility] SchoolTuan[address] Bola Fowler Notes/Report: FASTING:YES FASTING: YES HS CRP 5.3 Reference Range Optimal <1.0 Warner PS et al. Endocr Pract.2017;23(Suppl 2):1-87. For [...] for Disease Control and Prevention and the [place] [employer]. Circulation 2003; 107(3): 499-511. ABHAY SCREEN, IFA, W/REFL TITE R AND PATTERN Reviewed date:09/18/2024 04:03:26 PM Interpretation: Performing Lab:NL2, [facility] SchoolTuan[address] Bola Fowler Notes/Report: FASTING:YES FASTING: YES ABHAY [...] Negative International Consensus on ABHAY Patterns (https://doi.org/10.1515/cc ac-0162-5056) For additional information, please refer to http://education.[employer].com/faq/RXI987 (This link is being provided for informational/ educational purposes only.) TESTOSTERONE, TOTAL, MS Reviewed date:09/19/2024 07:49:43 AM Interpretation: Performing Lab:Neeru SAMS/Dominguez [facility] [id number] Brice Aceves, MoxrkitkcLD[address] Dario Galvez M.D.,PhD Notes/Report: FASTING:YES FASTING: YES TESTOSTERONE, TOTAL, MS 9 2-45 ng/dL For additional information, please refer to http://education.[employer]faq/ TotalTestosteroneLCMSMSFAQ1 65 (This link is being provided for informational/ educational purposes only.) This test was developed and its analytical performance characteristics have been determined by [facility] [place], [place]. It has not been cleared or approved by the U.S. Food and Drug Administration. This assay has been validated pursuant to the CLIA regulations and is used for clinical purposes. ESTROGEN, TOTAL, SERUM Reviewed date:09/19/2024 07:49:48 AM Interpretation: Performing Lab:Neeru MACDONALD/Dominguez [facility],[address] [facility] HospitalCA[address] Ruchi Chau MD,PhD,DEDE Notes/Report: FASTING:YES FASTING: YES ESTROGENS, TOTAL, IA 86 Reference Ranges for Total Estrogen: Follicular Phase: 51-601 Luteal Phase: 87-1194 Postmenopausal: < or = 214 VITAMIN D,25-OH,TOTAL,IA Reviewed date:09/16/2024 08:01:36 AM Interpretation: Performing Lab:NL2, [facility] [address]pu[address] Bola Fowler Notes/Report: FASTING:YES FASTING: YES VITAMIN D,25-OH,TOTAL,IA 21 30-100 ng/mL Vitamin D Status 25-OH Vitamin D: Deficiency: <20 ng/mL Insufficiency: 20 - 29 ng/mL Optimal: > or = 30 ng/mL For 25-OH Vitamin D testing on patients on D2-supplementation and patients for whom quantitation of D2 and D3 fractions is required, the QuestAssureD(TM) 25-OH VIT D, (D2,D3), LC/MS/MS is recommended: order code 99977 (patients >2yrs). See Note 1 Note 1 For additional information, please refer to http://education.Rew[employer] Me/faq/OOB488 (This link is being provided for informational/ educational purposes only.) VITAMIN B12 Reviewed date:09/18/2024 07:43:06 AM Interpretation: Performing Lab:[facility], [facility] SchoolTuan[address] Bola Fowler Notes/Report: FASTING:YES FASTING: YES VITAMIN B12 579 824-4722 pg/mL CBC (INCLUDES DIFF/PLT) Reviewed date:09/16/2024 08:01:36 AM Interpretation: Performing Lab:[facility], [facility] SchoolTuan[address] Bola Fowler Notes/Report: FASTING:YES FASTING: YES [...] MPV 10.6 7.5-12.5 fL ABSOLUTE NEUTROPHILS 6197 5176-1301 cells/uL ABSOLUTE LYMPHOCYTES 5460 483-3104 cells/uL ABSOLUTE MONOCYTES 405 200-950 cells/uL ABSOLUTE EOSINOPHILS 81 15-500 cells/uL ABSOLUTE BASOPHILS 41 0-200 cells/uL NEUTROPHILS 76.5 LYMPHOCYTES 17.0 MONOCYTES 5.0 EOSINOPHILS 1.0 BASOPHILS 0.5 COMPREHENSIVE METABOLIC PANE L Reviewed date:09/16/2024 08:01:36 AM Interpretation: Performing Lab:[facility] [address] Mariondacia Waggoner Janeth Notes/Report: FASTING:YES FASTING: YES GLUCOSE 95 65-99 mg/dL Fasting reference interval UREA NITROGEN (BUN) 24 7-25 mg/dL CREATININE 0.65 0.50-0.99 mg/dL EGFR 113 > OR = 60 mL/min/1.73m2 BUN/CREATININE RATIO SEE NOTE: 6- (calc) Not Reported: BUN and Creatinine are [...] L Reviewed date:09/16/2024 08:01:36 AM Interpretation: Performing Lab:[facility] [facility] SchoolTuan[address] [id number] Mariondacia Waggoner Janeth Notes/Report: FASTING:YES FASTING: YES IRON, TOTAL 70 40-190 mcg/dL IRON BINDING CAPACITY 351 250-450 mcg/dL (heaven c) % SATURATION 20 16-45 % (calc) FERRITIN 37 16-232 ng/mL LIPID PANEL, STANDARD Reviewed date:09/16/2024 08:01:36 AM Interpretation: Performing Lab:[facility] [employer] [facility] SchoolSunlasses.com.ng [address] Bola Fowler Notes/Report: FASTING:YES FASTING: YES CHOLESTEROL, TOTAL 240 <200 mg/dL HDL CHOLESTEROL 64 > OR = 50 mg/dL TRIGLYCERIDES 126 <150 mg/dL LDL-CHOLESTEROL 151 Reference range: <100 Desirable range <100 mg/dL for primary prevention; <70 mg/dL for patients with CHD or diabetic patients with > or = 2 CHD risk factors. LDL-C is now calculated using the Jose Luis calculation, which is a validated novel method providing better accuracy than the Friedewald equation in the estimation of LDL-C. Bj SALGUERO et al. JOSE A. 2013;310(19): 6975-0381 (http://education.Huoshi.Kadmon/faq/LAG777) CHOL/HDLC RATIO 3.8 <5.0 (calc) NON HDL CHOLESTEROL 176 <130 mg/dL (calc) For patients with diabetes plus 1 major ASCVD risk factor, treating to a non-HDL-C goal of <100 mg/dL (LDL-C of <70 mg/dL) is considered a therapeutic option. Reason For Referral Reason evaluate & treat m ay benefit from cortisone injection Diagnosis 1 Tendinopathy (M67.90 ) Diagnosis 2 Degenerative disc di sease, thoracic (M51.34) Referral Organization [facility]ALLERO Referring Provider First Name CARLOS Referring Provider Last Name SWAPNA Referring Provider Speciality Internal edicine Referred Provider Specialty Orthopedic S urgery General Notes Zara Serrano 12/01 03:18:54 PM > form filled out and faxed over chilango Hanson.[phone], [phone] Clinical Notes Halie Mc 2024 09:41:59 AM >Scheduled 01/01/25 at 145PM Eliane Brown in [facility]. Referral Priority Routine Reason Migraines Diagnosis 1 Episodic migraine (G 43.269) Referral Organization [facility] Referring Provider First Name CARLOS Referring Provider Last Name SWAPNA Referring Provider Speciality Internal edicine Referred Provider Specialty Neurology General Notes Please refer to [facility], [address], [address], [place] [address], [phone], [phone] Clinical Notes Graciela Aguilera 07/2025 10:15:09 AM > pt requesting a call once referral sent.Alexandru Earl Adam 04/23/2025 03:18:56 PM > I called pt, she was booked on may 05 Referral Priority Stat Reason Evaluate & Treat W art of left hand, non-healing Diagnosis 1 Wart of hand (B07.9) Referral Organization [facility] [address] Referring Provider First Name CARLOS Referring Provider Last Name SWAPNA Referring Provider Speciality Internal M edicine Referred Provider Specialty Dermatology General Notes Margi Salter 0 04/13/2025 02:27:07 PM > Referral to [facility], p. [phone], f. [phone] Referral Priority Routine Medications Medication SIG (Take, Route, Frequency, Duration) Notes Start Date End Date Status Escitalopram Oxalate 5 MG TAKE 1 TABLET BY MOUTH EVERY DAY; Duration: 90 Active Omeprazole 40 MG TAKE 1 CAPSULE BY MO UT EVERY DAY 30 MINUTES BEFORE MORNING MEAL FOR 90 DAYS; Duration: 90 Active Wegovy 1.7 MG/0.75ML 1.7 mg; Duration: 30 days Active Rosuvastatin Calcium 10 MG 1 tablet Oral ly Once a day; Duration: 90 days Active SUMAtriptan Succinate 25 MG 25 mg prn, a dditional dose 2 hours later prn Orally daily; Duration: 15 days 06/10/2024 Active Social History Tobacco Use: Social History Observation Description Date Details (start date - stop date) Never Smoker NA - NA Tobacco Use/Smoking Question Answer Notes Are you a nonsmoker Section Notes: Tob: denies current use alcohol: socially drug: denies caffeine: coffee daily exercise: 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 alcohol: socially drug: denies caffeine: coffee daily exercise: 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: denies current use alcohol: socially drug: denies caffeine: coffee daily exercise: 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: denies 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 use alcohol: socially drug: denies caffeine: coffee daily exercise: 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 alcohol: socially drug: denies caffeine: coffee daily exercise: 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 alcohol: socially drug: denies caffeine: coffee daily exercise: 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: denies 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 use alcohol: socially drug: denies caffeine: coffee daily exercise: 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: denies 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 use alcohol: socially drug: denies caffeine: coffee daily exercise: 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: denies 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 use alcohol: socially drug: denies caffeine: coffee daily exercise: 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: denies 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 use alcohol: socially drug: denies caffeine: coffee daily exercise: 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 alcohol: socially drug: denies caffeine: coffee daily exercise: 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 alcohol: socially drug: denies caffeine: coffee daily exercise: 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 alcohol: socially drug: denies caffeine: coffee daily exercise: 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 alcohol: socially drug: denies caffeine: coffee daily exercise: 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: denies 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 use alcohol: socially drug: denies caffeine: coffee daily exercise: 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: denies 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 use alcohol: socially drug: denies caffeine: coffee daily exercise: 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: denies 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 use alcohol: socially drug: denies caffeine: coffee daily exercise: 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: denies 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 use alcohol: socially drug: denies caffeine: coffee daily exercise: 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: denies 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 use alcohol: socially drug: denies caffeine: coffee daily exercise: 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: denies 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 use alcohol: socially drug: denies caffeine: coffee daily exercise: 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: denies 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 use alcohol: socially drug: denies caffeine: coffee daily exercise: 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: denies 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 use alcohol: socially drug: denies caffeine: coffee daily exercise: 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: denies current use alcohol: socially drug: denies caffeine: coffee daily exercise: 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 Problems Problem Type SNOMED Code ICD Code Onset Dates Problem Status W/U Status Risk Notes Problem Vitamin D deficiency (03218951) Vitamin D deficiency, unspecified (E55.9) Active confirmed Problem Overweight (888399023) Overweight (E66.3) Active confirmed Problem Obesity (787400045) Other obesity (E66.8) Active confirmed Problem Mixed hyperlipidemia (361704274) Mixed hyperlipidemia (E78.2) Active confirmed Problem Shoulder joint pain (629045260) Shoulder pain, unspecified chronicity, unspecified laterality (M25.519) Active confirmed Problem Hyperlipidaemia (59682367) Hyperlipidemia, unspecified hyperlipidemia type (E78.5) Active confirmed Problem Shoulder joint pain (841721693) Right shoulder pain, unspecified chronicity (M25.511) Active confirmed Problem Acquired hypothyroidism (198575119) Acquired hypothyroidism (E03.9) Active confirmed Problem Anxiety (29403394) Anxiety (F41.9) Active confi rmed Problem Hyperlipoproteinemia (4511927) 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) Active confirmed Problem Vitamin D deficiency (33952334) Vitamin D deficiency (E55.9) Active confirmed Problem Alopecia (70809096) Hair loss (L65.9) Active co nfirmed Problem Gastroesophageal reflux disease without esophagitis (514820699) Gastroesophageal reflux disease without esophagitis (K21.9) Active confirmed Problem Obesity (351855430) Obesity (BMI 30-39.9) (E66.9) Active confirmed Problem Obese class I (993230235741382) BMI 33.0-33.9,adult (Z68.33) Active confirmed Problem BMI 30+ - obesity (731593762) BMI 32.0-32.9,adult (Z68.32) Active confirmed Problem Degeneration of thoracic intervertebral disc (72181733) Degenerative disc disease, thoracic (M51.34) Active confirmed Problem Vitamin B>12< deficiency anaemia (39207930) Anemia due to vitamin B12 deficiency, unspecified B12 deficiency type (D51.9) Active confirmed Problem Body mass index 30.0 0 to 34.99 (823560792905353) BMI 31.0-31.9,adult (Z68.31) Active confirmed Problem Body mass index 30+ - obesity (146404138) BMI 30.0-30.9,adult (Z68.30) Active confirmed Problem Tension-type headach e (952743595) Acute intractable tension-type headache (G44.201) Active confirmed Problem Gastroesophageal reflux disease (100850589) GERD (gastroesophageal reflux disease) (K21.9) Active confirmed Problem Hyperlipidemia (48956784) Hyperlipidemia (E78.5) Active confirmed Problem Episodic migraine (735264498060587) Episodic migraine (G43.909) Active confirmed Problem Hypophosphatemia (8293486) Hypophosphatemia (E83.39) Active confirmed Problem Laboratory test result abnormal (049247849) Low liver alkaline phosphatase level (R74.8) Active confirmed Problem Tendinopathy (14083044) Tendinopathy (M67.90) Active confirmed Vital Signs Heart Rate 86 /min 06/08/2025 Oximetry 95 % 06/08/2025 Blood pressure diastolic 78 mm Hg 06/08/2025 Height 69 in 06/08/2025 Blood pressure systolic 122 mm Hg 06/08/2025 Weight 219.4 lbs 06/08/2025 BMI 32.4 kg/m2 06/08/2025 Encounters Encounter Location Date Provider Diagnosis [address] [address] 06/10/2024 CARLOS BARCENAS Overweight E66.3 ; Wellness examination Z00.00 ; BMI 29.0-29.9,adult Z68.29 ; Gastroesophageal reflux disease without esophagitis K21.9 ; Anxiety F41.9 ; Nutritional counseling Z71.3 ; Mixed hyperlipidemia E78.2 ; Pain, joint, shoulder, right M25.511 and Episodic migraine G43.[address] [address] 07/28/2024 CARLOS BARCENAS Overweight E66.3 ; B AL 29.0-29.9,adult Z68.29 ; Gastroesophageal reflux disease without esophagitis K21.9 ; Anxiety F41.9 ; Mixed hyperlipidemia E78.2 ; Pain, joint, shoulder, right M25.511 ; Episodic migraine G43.909 and Nutritional counseling Z71.[address] [address] 09/10/2024 CARLOS BARCENAS Overweight E66.3 ; B AL 29.0-29.9,adult Z68.29 ; Anxiety F41.9 ; Mixed hyperlipidemia E78.2 ; Pain, joint, shoulder, right M25.511 ; Episodic migraine G43.909 ; Nutritional counseling Z71.3 ; Hair loss L65.9 and Hyperlipidemia, unspecified hyperlipidemia type E78.[address] 11/17/2024 CARLOSMaster BARCENAS Anxiety F41.9 ; Pain , joint, shoulder, left M25.512 ; Mixed hyperlipidemia E78.2 ; Episodic migraine G43.909 ; Nutritional counseling Z71.3 ; Hair loss L65.9 ; Hyperlipidemia, unspecified hyperlipidemia type E78.5 and BMI 32.0-32.9,adult Z68.[address] 12/24/2024 CARLOSMaster BARCENAS Obesity (BMI 30-39.9 ) E66.9 ; BMI 33.0-33.9,adult Z68.33 ; Pain, joint, shoulder, left M25.512 ; Anxiety F41.9 ; Mixed hyperlipidemia E78.2 ; Episodic migraine G43.909 ; Nutritional counseling Z71.3 ; Hair loss L65.9 and Encounter for examination of blood pressure without abnormal findings Z01.[address] 03/04/2025 CARLOS BARCENAS Obesity (BMI 30-39.9 ) E66.9 ; BMI 33.0-33.9,adult Z68.33 ; Pain, joint, shoulder, left M25.512 ; Anxiety F41.9 ; Mixed hyperlipidemia E78.2 ; Episodic migraine G43.909 ; Nutritional counseling Z71.3 ; Hair loss L65.9 and Encounter for examination of blood pressure without abnormal findings Z01.[address] 04/13/2025 CARLOSMaster BARCENAS Obesity (BMI 30-39.9 ) E66.9 ; BMI 32.0-32.9,adult Z68.32 ; Pain, joint, shoulder, left M25.512 ; Anxiety F41.9 ; Mixed hyperlipidemia E78.2 ; Episodic migraine G43.909 ; Nutritional counseling Z71.3 ; Hair loss L65.9 and Encounter for examination of blood pressure without abnormal findings Z01.[address] 06/08/2025 CARLOSMaster BARCENAS Obesity (BMI 30-39.9 ) E66.9 ; BMI 32.0-32.9,adult Z68.32 ; Pain, joint, shoulder, left M25.512 ; Anxiety F41.9 ; Mixed hyperlipidemia E78.2 ; Episodic migraine G43.909 ; Nutritional counseling Z71.3 ; Hair loss L65.9 and Encounter for examination of blood pressure without abnormal findings Z01.30 [facility] [address] CARLOS [address] [place] [address] 06/10/2024 CARLOS BARCENAS [facility] [address] [place] [address] 07/07/2024 CARLOSMaster BARCENAS Overweight E66.3 [facility] [address] 07/18/2024 CARLOS BARCENAS Gastroesophageal ref lux disease without esophagitis K21.9 [facility] [address] 07/28/2024 CARLOSMaster BARCENAS [facility] [address] [place] [address] 09/08/2024 CARLOS BARCENAS [facility] [address] [place] [address] 09/16/2024 CARLOS BARCENAS [facility] [address] 11/17/2024 CARLOS BARCENAS [facility] [address] [place] [address] 11/17/2024 CARLOS BARCENAS Shoulder pain, unspe cified chronicity, unspecified laterality M25.[address] [address] [place] [address] 02/02/2025 CARLOS BARCENAS [facility] [address] [place] [address] 02/24/2025 CARLOS BARCENAS [facility] [address] [place] [address] 03/31/2025 CARLOS BARCENAS [facility] [address] [place] [address] 04/13/2025 CARLOSMaster BARCENAS [facility] [address] 04/17/2025 CARLOS BARCENAS [facility] [address] [place] [address] 04/23/2025 CARLOS BARCENAS Obesity (BMI 30-39.9 ) E66.9 [facility] [address]OS [address] [place] [address] 05/04/2025 CARLOS BARCENAS [facility] [address] [place] [address] 11/14/2024 CARLOS BARCENAS [facility] [address] [place] [address] 02/02/2025 CARLOS BARCENAS [facility] [address] [place] [address] 02/02/2025 CARLOS BARCENAS [facility] [address] [place] [address] 02/02/2025 CARLOS BARCENAS [facility] [address] [place] [address] 02/02/2025 CARLOS BARCENAS [facility] [address] [place] [address] 02/02/2025 CARLOS BARCENAS [facility] [address] [place] [address] 02/02/2025 CARLOS BARCENAS [facility] [address] [place] [address] 02/02/2025 CARLOS BARCENAS Assessments Encounter Date Diagnosis (ICD Code) Assessment Notes Treatment Notes Treatment Clinical Notes Section Notes 06/10/2024 Overweight (ICD-10 - E66.3) Glenis is a pleasant 43-year-old female presents the office for complete physical exam. Patient is up-to-date on all routine screenings, just had a mammogram this year, Pap smear this year. Follows with [facility] for both of those things. Declines flu [...] educated on lifestyle modifications. Patient went to [place], and then went to [place] and states that she has been traveling [...] in addition to walking as tolerated. Contacted [facility] pharmacy in [place] who states they cannot dispense Saxenda secondary to supply issues. Called [facility] specialty pharmacy, and Saxenda continues to be on backorder until unknown date. Will send to other [facility] pharmacy in [place], but patient will continue to call pharmacies [...] and red meat. Discussed fish, fish oil, Orlando's, healthy fats. # Right shoulder pain: X [...] log exercise and discussed fitness Apps like Shoppilot which can help keep log off calories [...] Dictation was accomplished with the use of Cadent voice recognition software, prone to medical misidentifications [...] year, Pap smear this year. Follows with [facility] for both of those things. Declines flu [...] educated on lifestyle modifications. Patient went to [place], and then went to [place] and states that she has been traveling [...] in addition to walking as tolerated. Contacted [facility] pharmacy in [place] who states they cannot dispense Saxenda secondary to supply issues. Called [facility] specialty pharmacy, and Saxenda continues to be on backorder until unknown date. Will send to other [facility] pharmacy in [place], but patient will continue to call pharmacies [...] and red meat. Discussed fish, fish oil, Orlando's, healthy fats. # Right shoulder pain: X [...] log exercise and discussed fitness Apps like [employer]opp[employer] which can help keep log off calories [...] Dictation was accomplished with the use of Cadent voice recognition software, prone to medical misidentifications and grammatical errors. This is unintentional and the practitioner does try to identify and correct these, but some could still be present. Please do not hesitate to contact practitioner for clarification. 07/07/2024 Overweight (ICD-10 - E66.3) 07/18/2024 Gastroesophageal reflux disease without esophagitis (ICD-10 - K21.9) 09/10/2024 Overweight (ICD-10 - E66.3) 10/03/22: Weight [...] educated on lifestyle modifications. Patient went to [place], and then went to [place] and states that she has been traveling [...] in addition to walking as tolerated. Contacted [facility] pharmacy in [place] who states they cannot dispense Saxenda secondary to supply issues. Called [facility] specialty pharmacy, and Saxenda continues to be on backorder until unknown date. Will send to other [facility] pharmacy in [place], but patient will continue to call pharmacies [...] Dictation was accomplished with the use of Cadent voice recognition software, prone to medical misidentifications [...] educated on lifestyle modifications. Patient went to [place], and then went to [place] and states that she has been traveling [...] in addition to walking as tolerated. Contacted [facility] pharmacy in [place] who states they cannot dispense Saxenda secondary to supply issues. Called [facility] specialty pharmacy, and Saxenda continues to be on backorder until unknown date. Will send to other [facility] pharmacy in [place], but patient will continue to call pharmacies [...] Dictation was accomplished with the use of Cadent voice recognition software, prone to medical misidentifications [...] educated on lifestyle modifications. Patient went to [place], and then went to [place] and states that she has been traveling [...] in addition to walking as tolerated. Contacted [facility] pharmacy in [place] who states they cannot dispense Saxenda secondary to supply issues. Called [facility] pharmacy, and Saxenda continues to be on backorder until unknown date. Will send to other [facility] pharmacy in [place], but patient will continue to call pharmacies [...] will trial contrave first. Discussed referral for dining room coordinator, Patient declines at this time. Follow up [...] Dictation was accomplished with the use of Cadent voice recognition software, prone to medical misidentifications [...] educated on lifestyle modifications. Patient went to [place], and then went to [place] and states that she has been traveling [...] in addition to walking as tolerated. Contacted [facility] pharmacy in [place] who states they cannot dispense Saxenda secondary to supply issues. Called [facility] pharmacy, and Saxenda continues to be on backorder until unknown date. Will send to other [facility] pharmacy in [place], but patient will continue to call pharmacies [...] will trial contrave first. Discussed referral for dining room coordinator, Patient declines at this time. Follow up [...] Dictation was accomplished with the use of Cadent voice recognition software, prone to medical misidentifications [...] educated on lifestyle modifications. Patient went to [place], and then went to [place] and states that she has been traveling [...] in addition to walking as tolerated. Contacted [facility] pharmacy in [place] who states they cannot dispense Saxenda secondary to supply issues. Called [facility] pharmacy, and Saxenda continues to be on backorder until unknown date. Will send to other [facility] pharmacy in [place], but patient will continue to call pharmacies [...] will trial contrave first. Discussed referral for dining room coordinator, Patient declines at this time. Follow up [...] Dictation was accomplished with the use of Cadent voice recognition software, prone to medical misidentifications [...] educated on lifestyle modifications. Patient went to [place], and then went to [place] and states that she has been traveling [...] in addition to walking as tolerated. Contacted [facility] pharmacy in [place] who states they cannot dispense Saxenda secondary to supply issues. Called [facility] pharmacy, and Saxenda continues to be on backorder until unknown date. Will send to other [facility] pharmacy in [place], but patient will continue to call pharmacies [...] will trial contrave first. Discussed referral for dining room coordinator, Patient declines at this time. Follow up [...] Dictation was accomplished with the use of Cadent voice recognition software, prone to medical misidentifications [...] educated on lifestyle modifications. Patient went to [place], and then went to [place] and states that she has been traveling [...] in addition to walking as tolerated. Contacted [facility] pharmacy in [place] who states they cannot dispense Saxenda secondary to supply issues. Called [facility] pharmacy, and Saxenda continues to be on backorder until unknown date. Will send to other [facility] pharmacy in [place], but patient will continue to call pharmacies [...] will trial contrave first. Discussed referral for dining room coordinator, Patient declines at this time. Follow up [...] recieved Vitamin B12 in office.Patient taking Nutr[facility] improvment. Consider dermatology referral. No further workup [...] Dictation was accomplished with the use of Cadent voice recognition software, prone to medical misidentifications [...] educated on lifestyle modifications. Patient went to [place], and then went to [place] and states that she has been traveling [...] in addition to walking as tolerated. Contacted [facility] pharmacy in [place] who states they cannot dispense Saxenda secondary to supply issues. Called [facility] pharmacy, and Saxenda continues to be on backorder until unknown date. Will send to other [facility] pharmacy in [place], but patient will continue to call pharmacies [...] will trial contrave first. Discussed referral for dining room coordinator, Patient declines at this time. Follow up [...] Wart of left hand, refer to dermatology. Xwbo-wzf-indqfml regimen not helping # Migraines: Adequate nutrition/hydration. [...] Dictation was accomplished with the use of Cadent voice recognition software, prone to medical misidentifications [...] educated on lifestyle modifications. Patient went to [place], and then went to [place] and states that she has been traveling [...] in addition to walking as tolerated. Contacted [facility] pharmacy in [place] who states they cannot dispense Saxenda secondary to supply issues. Called [facility] pharmacy, and Saxenda continues to be on backorder until unknown date. Will send to other [facility] pharmacy in [place], but patient will continue to call pharmacies [...] will trial contrave first. Discussed referral for dining room coordinator, Patient declines at this time. Follow up [...] Wart of left hand, refer to dermatology. Nqac-mdt-ulhuwag regimen not helping # Migraines: Adequate nutrition/hydration. [...] Dictation was accomplished with the use of Cadent voice recognition software, prone to medical misidentifications and grammatical errors. This is unintentional and the practitioner does try to identify and correct these, but some could still be present. Please do not hesitate to contact practitioner for clarification. 04/23/2025 Obesity (BMI 30-39.9) (ICD-10 - E66.9) 06/08/2025 Obesity (BMI 30-39.9) (ICD-10 - E66.9) [...] educated on lifestyle modifications. Patient went to [place], and then went to [place] and states that she has been traveling [...] in addition to walking as tolerated. Contacted [facility] pharmacy in [place] who states they cannot dispense Saxenda secondary to supply issues. Called [facility] pharmacy, and Saxenda continues to be on backorder until unknown date. Will send to other [facility] pharmacy in [place], but patient will continue to call pharmacies [...] will trial contrave first. Discussed referral for dining room coordinator, Patient declines at this time. Follow up [...] Wart of left hand, refer to dermatology. Leyn-tek-urmhpsv regimen not helping # Migraines: Adequate nutrition/hydration. [...] Dictation was accomplished with the use of Cadent voice recognition software, prone to medical misidentifications and grammatical errors. This is unintentional and the practitioner does try to identify and correct these, but some could still be present. Please do not hesitate to contact practitioner for clarification. 07/28/2024 Overweight (ICD-10 - E66.3) 10/03/22: Weight [...] educated on lifestyle modifications. Patient went to [place], and then went to [place] and states that she has been traveling [...] in addition to walking as tolerated. Contacted [facility] pharmacy in [place] who states they cannot dispense Saxenda secondary to supply issues. Called [facility] pharmacy, and Saxenda continues to be on backorder until unknown date. Will send to other [facility] pharmacy in [place], but patient will continue to call pharmacies [...] and red meat. Discussed fish, fish oil, [place]'s, healthy fats. # Right shoulder pain: X [...] Dictation was accomplished with the use of Cadent voice recognition software, prone to medical misidentifications [...] educated on lifestyle modifications. Patient went to [place], and then went to [place] and states that she has been traveling [...] in addition to walking as tolerated. Contacted [facility] pharmacy in [place] who states they cannot dispense Saxenda secondary to supply issues. Called [facility] pharmacy, and Saxenda continues to be on backorder until unknown date. Will send to other [facility] pharmacy in [place], but patient will continue to call pharmacies [...] and red meat. Discussed fish, fish oil, [place]'s, healthy fats. # Right shoulder pain: X [...] Dictation was accomplished with the use of Cadent voice recognition software, prone to medical misidentifications [...] educated on lifestyle modifications. Patient went to [place], and then went to [place] and states that she has been traveling [...] in addition to walking as tolerated. Contacted [facility] pharmacy in [place] who states they cannot dispense Saxenda secondary to supply issues. Called [facility] pharmacy, and Saxenda continues to be on backorder until unknown date. Will send to other [facility] pharmacy in [place], but patient will continue to call pharmacies [...] and red meat. Discussed fish, fish oil, [place]'s, healthy fats. # Right shoulder pain: X [...] Dictation was accomplished with the use of Cadent voice recognition software, prone to medical misidentifications [...] educated on lifestyle modifications. Patient went to [place], and then went to [place] and states that she has been traveling [...] in addition to walking as tolerated. Contacted [facility] pharmacy in [place] who states they cannot dispense Saxenda secondary to supply issues. Called [facility] pharmacy, and Saxenda continues to be on backorder until unknown date. Will send to other [facility] pharmacy in [place], but patient will continue to call pharmacies [...] will trial contrave first. Discussed referral for dining room coordinator, Patient declines at this time. Follow up [...] Wart of left hand, refer to dermatology. Bwdi-ejv-gyoughf regimen not helping # Migraines: Adequate nutrition/hydration. [...] Dictation was accomplished with the use of Cadent voice recognition software, prone to medical misidentifications and grammatical errors. This is unintentional and the practitioner does try to identify and correct these, but some could still be present. Please do not hesitate to contact practitioner for clarification. 04/13/2025 Pain, joint, shoulder, left (ICD-10 - [...] educated on lifestyle modifications. Patient went to [place], and then went to [place] and states that she has been traveling [...] in addition to walking as tolerated. Contacted [facility] pharmacy in [place] who states they cannot dispense Saxenda secondary to supply issues. Called [facility] pharmacy, and Saxenda continues to be on backorder until unknown date. Will send to other [facility] pharmacy in [place], but patient will continue to call pharmacies [...] will trial contrave first. Discussed referral for dining room coordinator, Patient declines at this time. Follow up [...] Wart of left hand, refer to dermatology. Nygs-ngg-mgoxxpz regimen not helping # Migraines: Adequate nutrition/hydration. [...] Dictation was accomplished with the use of Cadent voice recognition software, prone to medical misidentifications [...] educated on lifestyle modifications. Patient went to [place], and then went to [place] and states that she has been traveling [...] in addition to walking as tolerated. Contacted [facility] pharmacy in [place] who states they cannot dispense Saxenda secondary to supply issues. Called [facility] pharmacy, and Saxenda continues to be on backorder until unknown date. Will send to other [facility] pharmacy in [place], but patient will continue to call pharmacies [...] will trial contrave first. Discussed referral for dining room coordinator, Patient declines at this time. Follow up [...] Dictation was accomplished with the use of Cadent voice recognition software, prone to medical misidentifications [...] educated on lifestyle modifications. Patient went to [place], and then went to [place] and states that she has been traveling [...] in addition to walking as tolerated. Contacted [facility] pharmacy in [place] who states they cannot dispense Saxenda secondary to supply issues. Called [facility] pharmacy, and Saxenda continues to be on backorder until unknown date. Will send to other [facility] pharmacy in [place], but patient will continue to call pharmacies [...] will trial contrave first. Discussed referral for dining room coordinator, Patient declines at this time. Follow up [...] Dictation was accomplished with the use of Cadent voice recognition software, prone to medical misidentifications [...] educated on lifestyle modifications. Patient went to [place], and then went to [place] and states that she has been traveling [...] in addition to walking as tolerated. Contacted [facility] pharmacy in [place] who states they cannot dispense Saxenda secondary to supply issues. Called [facility] pharmacy, and Saxenda continues to be on backorder until unknown date. Will send to other [facility] pharmacy in [place], but patient will continue to call pharmacies [...] will trial contrave first. Discussed referral for dining room coordinator, Patient declines at this time. Follow up [...] Dictation was accomplished with the use of Cadent voice recognition software, prone to medical misidentifications [...] educated on lifestyle modifications. Patient went to [place], and then went to [place] and states that she has been traveling [...] in addition to walking as tolerated. Contacted [facility] pharmacy in [place] who states they cannot dispense Saxenda secondary to supply issues. Called [facility] pharmacy, and Saxenda continues to be on backorder until unknown date. Will send to other [facility] pharmacy in [place], but patient will continue to call pharmacies [...] Dictation was accomplished with the use of Cadent voice recognition software, prone to medical misidentifications [...] year, Pap smear this year. Follows with [facility] for both of those things. Declines flu [...] educated on lifestyle modifications. Patient went to [place], and then went to [place] and states that she has been traveling [...] in addition to walking as tolerated. Contacted [facility] pharmacy in [place] who states they cannot dispense Saxenda secondary to supply issues. Called [facility] pharmacy, and Saxenda continues to be on backorder until unknown date. Will send to other [facility] pharmacy in [place], but patient will continue to call pharmacies [...] and red meat. Discussed fish, fish oil, [place]'s, healthy fats. # Right shoulder pain: X [...] log exercise and discussed fitness Apps like [employer]fitnesspal which can help keep log off calories [...] Dictation was accomplished with the use of Cadent voice recognition software, prone to medical misidentifications [...] year, Pap smear this year. Follows with [facility] for both of those things. Declines flu [...] educated on lifestyle modifications. Patient went to [place], and then went to [place] and states that she has been traveling [...] in addition to walking as tolerated. Contacted [facility] pharmacy in [place] who states they cannot dispense Saxenda secondary to supply issues. Called [facility] pharmacy, and Saxenda continues to be on backorder until unknown date. Will send to other [facility] pharmacy in [place], but patient will continue to call pharmacies [...] and red meat. Discussed fish, fish oil, Orlando's, healthy fats. # Right shoulder pain: X [...] log exercise and discussed fitness Apps like [employer] which can help keep log off calories [...] Dictation was accomplished with the use of Cadent voice recognition software, prone to medical misidentifications [...] educated on lifestyle modifications. Patient went to [place], and then went to [place] and states that she has been traveling [...] in addition to walking as tolerated. Contacted [facility] pharmacy in [place] who states they cannot dispense Saxenda secondary to supply issues. Called [facility] pharmacy, and Saxenda continues to be on backorder until unknown date. Will send to other [facility] pharmacy in [place], but patient will continue to call pharmacies [...] Dictation was accomplished with the use of Cadent voice recognition software, prone to medical misidentifications [...] educated on lifestyle modifications. Patient went to [place], and then went to [place] and states that she has been traveling [...] in addition to walking as tolerated. Contacted [facility] pharmacy in [place] who states they cannot dispense Saxenda secondary to supply issues. Called [facility] pharmacy, and Saxenda continues to be on backorder until unknown date. Will send to other [facility] pharmacy in [place], but patient will continue to call pharmacies [...] will trial contrave first. Discussed referral for dining room coordinator, Patient declines at this time. Follow up [...] Dictation was accomplished with the use of Cadent voice recognition software, prone to medical misidentifications [...] educated on lifestyle modifications. Patient went to [place], and then went to [place] and states that she has been traveling [...] in addition to walking as tolerated. Contacted [facility] pharmacy in [place] who states they cannot dispense Saxenda secondary to supply issues. Called [facility] pharmacy, and Saxenda continues to be on backorder until unknown date. Will send to other [facility] pharmacy in [place], but patient will continue to call pharmacies [...] will trial contrave first. Discussed referral for dining room coordinator, Patient declines at this time. Follow up [...] Dictation was accomplished with the use of Cadent voice recognition software, prone to medical misidentifications [...] educated on lifestyle modifications. Patient went to [place], and then went to [place] and states that she has been traveling [...] in addition to walking as tolerated. Contacted [facility] pharmacy in [place] who states they cannot dispense Saxenda secondary to supply issues. Called [facility] pharmacy, and Saxenda continues to be on backorder until unknown date. Will send to other [facility] pharmacy in [place], but patient will continue to call pharmacies [...] will trial contrave first. Discussed referral for dining room coordinator, Patient declines at this time. Follow up [...] Dictation was accomplished with the use of Cadent voice recognition software, prone to medical misidentifications [...] educated on lifestyle modifications. Patient went to [place], and then went to [place] and states that she has been traveling [...] in addition to walking as tolerated. Contacted [facility] pharmacy in [place] who states they cannot dispense Saxenda secondary to supply issues. Called [facility] pharmacy, and Saxenda continues to be on backorder until unknown date. Will send to other [facility] pharmacy in [place], but patient will continue to call pharmacies [...] will trial contrave first. Discussed referral for dining room coordinator, Patient declines at this time. Follow up [...] Wart of left hand, refer to dermatology. Zhvz-zgb-essautz regimen not helping # Migraines: Adequate nutrition/hydration. [...] Dictation was accomplished with the use of Cadent voice recognition software, prone to medical misidentifications [...] educated on lifestyle modifications. Patient went to [place], and then went to [place] and states that she has been traveling [...] in addition to walking as tolerated. Contacted [facility] pharmacy in [place] who states they cannot dispense Saxenda secondary to supply issues. Called [facility] pharmacy, and Saxenda continues to be on backorder until unknown date. Will send to other [facility] pharmacy in [place], but patient will continue to call pharmacies [...] will trial contrave first. Discussed referral for dining room coordinator, Patient declines at this time. Follow up [...] Wart of left hand, refer to dermatology. Jrvv-wvy-qwgqfcg regimen not helping # Migraines: Adequate nutrition/hydration. [...] Dictation was accomplished with the use of Cadent voice recognition software, prone to medical misidentifications [...] educated on lifestyle modifications. Patient went to [place], and then went to [place] and states that she has been traveling [...] in addition to walking as tolerated. Contacted [facility] pharmacy in [place] who states they cannot dispense Saxenda secondary to supply issues. Called [facility] pharmacy, and Saxenda continues to be on backorder until unknown date. Will send to other [facility] pharmacy in [place], but patient will continue to call pharmacies [...] and red meat. Discussed fish, fish oil, [employer]'s, healthy fats. # Right shoulder pain: X [...] Dictation was accomplished with the use of Cadent voice recognition software, prone to medical misidentifications [...] educated on lifestyle modifications. Patient went to [place], and then went to [place] and states that she has been traveling [...] in addition to walking as tolerated. Contacted [facility] pharmacy in [place] who states they cannot dispense Saxenda secondary to supply issues. Called [facility] specialty pharmacy, and Saxenda continues to be on backorder until unknown date. Will send to other [facility] pharmacy in [place], but patient will continue to call pharmacies [...] and red meat. Discussed fish, fish oil, Orlando's, healthy fats. # Right shoulder pain: X [...] Dictation was accomplished with the use of Cadent voice recognition software, prone to medical misidentifications and grammatical errors. This is unintentional and the practitioner does try to identify and correct these, but some could still be present. Please do not hesitate to contact practitioner for clarification. 06/08/2025 Anxiety (ICD-10 - F41.9) 10/03/22: Weight 211, [...] educated on lifestyle modifications. Patient went to [place], and then went to [place] and states that she has been traveling [...] in addition to walking as tolerated. Contacted [facility] pharmacy in [place] who states they cannot dispense Saxenda secondary to supply issues. Called [facility] pharmacy, and Saxenda continues to be on backorder until unknown date. Will send to other [facility] pharmacy in [place], but patient will continue to call pharmacies [...] will trial contrave first. Discussed referral for dining room coordinator, Patient declines at this time. Follow up [...] Wart of left hand, refer to dermatology. Ysok-drz-codzaef regimen not helping # Migraines: Adequate nutrition/hydration. [...] Dictation was accomplished with the use of Cadent voice recognition software, prone to medical misidentifications [...] educated on lifestyle modifications. Patient went to [place], and then went to [place] and states that she has been traveling [...] in addition to walking as tolerated. Contacted [facility] pharmacy in [place] who states they cannot dispense Saxenda secondary to supply issues. Called [facility] pharmacy, and Saxenda continues to be on backorder until unknown date. Will send to other [facility] pharmacy in [place], but patient will continue to call pharmacies [...] will trial contrave first. Discussed referral for dining room coordinator, Patient declines at this time. Follow up [...] Wart of left hand, refer to dermatology. Aans-lrq-nsyalos regimen not helping # Migraines: Adequate nutrition/hydration. [...] Dictation was accomplished with the use of Cadent voice recognition software, prone to medical misidentifications [...] educated on lifestyle modifications. Patient went to [place], and then went to [place] and states that she has been traveling [...] in addition to walking as tolerated. Contacted [facility] pharmacy in [place] who states they cannot dispense Saxenda secondary to supply issues. Called [facility] pharmacy, and Saxenda continues to be on backorder until unknown date. Will send to other [facility] pharmacy in [place], but patient will continue to call pharmacies [...] will trial contrave first. Discussed referral for dining room coordinator, Patient declines at this time. Follow up [...] Dictation was accomplished with the use of Cadent voice recognition software, prone to medical misidentifications [...] educated on lifestyle modifications. Patient went to [place], and then went to [place] and states that she has been traveling [...] in addition to walking as tolerated. Contacted [facility] pharmacy in [place] who states they cannot dispense Saxenda secondary to supply issues. Called [facility] pharmacy, and Saxenda continues to be on backorder until unknown date. Will send to other [facility] pharmacy in [place], but patient will continue to call pharmacies [...] will trial contrave first. Discussed referral for dining room coordinator, Patient declines at this time. Follow up [...] Dictation was accomplished with the use of Cadent voice recognition software, prone to medical misidentifications [...] educated on lifestyle modifications. Patient went to [place], and then went to [place] and states that she has been traveling [...] in addition to walking as tolerated. Contacted [facility] pharmacy in [place] who states they cannot dispense Saxenda secondary to supply issues. Called [facility] pharmacy, and Saxenda continues to be on backorder until unknown date. Will send to other [facility] pharmacy in [place], but patient will continue to call pharmacies [...] will trial contrave first. Discussed referral for dining room coordinator, Patient declines at this time. Follow up in 4-6 weeks # Hair loss: CBC, iron, TIBC, ferritin, ABHAY, CRP, estrogen, progesterone, testosterone, DHEA, TSH, T3, T4, were WNL, vitamin D was low, pt reports that she is taking vitamin D supplementation, vitamin B12 was low, pt recieved Vitamin B12 in office.Patient taking NutrAFUL wt improvment. Consider dermatology referral. # Migraines: Adequate [...] Dictation was accomplished with the use of Cadent voice recognition software, prone to medical misidentifications [...] educated on lifestyle modifications. Patient went to [place], and then went to [place] and states that she has been traveling [...] in addition to walking as tolerated. Contacted [facility] pharmacy in [place] who states they cannot dispense Saxenda secondary to supply issues. Called [facility] pharmacy, and Saxenda continues to be on backorder until unknown date. Will send to other [facility] pharmacy in [place], but patient will continue to call pharmacies [...] Dictation was accomplished with the use of Cadent voice recognition software, prone to medical misidentifications [...] year, Pap smear this year. Follows with [facility] for both of those things. Declines flu [...] educated on lifestyle modifications. Patient went to [place], and then went to [place] and states that she has been traveling [...] in addition to walking as tolerated. Contacted [facility] pharmacy in [place] who states they cannot dispense Saxenda secondary to supply issues. Called [facility] pharmacy, and Saxenda continues to be on backorder until unknown date. Will send to other [facility] pharmacy in [place], but patient will continue to call pharmacies [...] and red meat. Discussed fish, fish oil, Orlando's, healthy fats. # Right shoulder pain: X [...] log exercise and discussed fitness Apps like [employer] which can help keep log off calories [...] Dictation was accomplished with the use of Cadent voice recognition software, prone to medical misidentifications [...] year, Pap smear this year. Follows with [facility] for both of those things. Declines flu [...] educated on lifestyle modifications. Patient went to [place], and then went to [place] and states that she has been traveling [...] in addition to walking as tolerated. Contacted [facility] pharmacy in [place] who states they cannot dispense Saxenda secondary to supply issues. Called [facility] pharmacy, and Saxenda continues to be on backorder until unknown date. Will send to other [facility] pharmacy in [place], but patient will continue to call pharmacies [...] and red meat. Discussed fish, fish oil, Orlando's, healthy fats. # Right shoulder pain: X [...] log exercise and discussed fitness Apps like [employer] which can help keep log off calories [...] Dictation was accomplished with the use of Cadent voice recognition software, prone to medical misidentifications [...] educated on lifestyle modifications. Patient went to [place], and then went to [place] and states that she has been traveling [...] in addition to walking as tolerated. Contacted [facility] pharmacy in [place] who states they cannot dispense Saxenda secondary to supply issues. Called [facility] pharmacy, and Saxenda continues to be on backorder until unknown date. Will send to other [facility] pharmacy in [place], but patient will continue to call pharmacies [...] will trial contrave first. Discussed referral for dining room coordinator, Patient declines at this time. Follow up [...] Dictation was accomplished with the use of Cadent voice recognition software, prone to medical misidentifications [...] educated on lifestyle modifications. Patient went to [place], and then went to [place] and states that she has been traveling [...] in addition to walking as tolerated. Contacted [facility] pharmacy in [place] who states they cannot dispense Saxenda secondary to supply issues. Called [facility] pharmacy, and Saxenda continues to be on backorder until unknown date. Will send to other [facility] pharmacy in [place], but patient will continue to call pharmacies [...] Dictation was accomplished with the use of Cadent voice recognition software, prone to medical misidentifications [...] educated on lifestyle modifications. Patient went to [place], and then went to [place] and states that she has been traveling [...] in addition to walking as tolerated. Contacted [facility] pharmacy in [place] who states they cannot dispense Saxenda secondary to supply issues. Called [facility] pharmacy, and Saxenda continues to be on backorder until unknown date. Will send to other [facility] pharmacy in [place], but patient will continue to call pharmacies [...] will trial contrave first. Discussed referral for dining room coordinator, Patient declines at this time. Follow up [...] Dictation was accomplished with the use of Cadent voice recognition software, prone to medical misidentifications [...] educated on lifestyle modifications. Patient went to [place], and then went to [place] and states that she has been traveling [...] in addition to walking as tolerated. Contacted [facility] pharmacy in [place] who states they cannot dispense Saxenda secondary to supply issues. Called [facility] pharmacy, and Saxenda continues to be on backorder until unknown date. Will send to other [facility] pharmacy in [place], but patient will continue to call pharmacies [...] will trial contrave first. Discussed referral for dining room coordinator, Patient declines at this time. Follow up [...] Dictation was accomplished with the use of Cadent voice recognition software, prone to medical misidentifications [...] educated on lifestyle modifications. Patient went to [place], and then went to [place] and states that she has been traveling [...] in addition to walking as tolerated. Contacted [facility] pharmacy in [place] who states they cannot dispense Saxenda secondary to supply issues. Called [facility] pharmacy, and Saxenda continues to be on backorder until unknown date. Will send to other [facility] pharmacy in [place], but patient will continue to call pharmacies [...] will trial contrave first. Discussed referral for dining room coordinator, Patient declines at this time. Follow up [...] Wart of left hand, refer to dermatology. Fgou-zrf-zrpvxuq regimen not helping # Migraines: Adequate nutrition/hydration. [...] Dictation was accomplished with the use of Cadent voice recognition software, prone to medical misidentifications [...] educated on lifestyle modifications. Patient went to [place], and then went to [place] and states that she has been traveling [...] in addition to walking as tolerated. Contacted [facility] pharmacy in [place] who states they cannot dispense Saxenda secondary to supply issues. Called [facility] pharmacy, and Saxenda continues to be on backorder until unknown date. Will send to other [facility] pharmacy in [place], but patient will continue to call pharmacies [...] will trial contrave first. Discussed referral for dining room coordinator, Patient declines at this time. Follow up [...] Wart of left hand, refer to dermatology. Hdho-bua-sgekigi regimen not helping # Migraines: Adequate nutrition/hydration. [...] Dictation was accomplished with the use of Cadent voice recognition software, prone to medical misidentifications [...] educated on lifestyle modifications. Patient went to [place], and then went to [place] and states that she has been traveling [...] in addition to walking as tolerated. Contacted [facility] pharmacy in [place] who states they cannot dispense Saxenda secondary to supply issues. Called [facility] pharmacy, and Saxenda continues to be on backorder until unknown date. Will send to other [facility] pharmacy in [place], but patient will continue to call pharmacies [...] and red meat. Discussed fish, fish oil, Orlando's, healthy fats. # Right shoulder pain: X [...] Dictation was accomplished with the use of Cadent voice recognition software, prone to medical misidentifications [...] educated on lifestyle modifications. Patient went to [place], and then went to [place] and states that she has been traveling [...] in addition to walking as tolerated. Contacted [facility] pharmacy in [place] who states they cannot dispense Saxenda secondary to supply issues. Called [facility] pharmacy, and Abhishek continues to be on backorder until unknown date. Will send to other [facility] pharmacy in [place], but patient will continue to call pharmacies [...] and red meat. Discussed fish, fish oil, Orlando's, healthy fats. # Right shoulder pain: X [...] Dictation was accomplished with the use of Cadent voice recognition software, prone to medical misidentifications [...] educated on lifestyle modifications. Patient went to [place], and then went to [place] and states that she has been traveling [...] in addition to walking as tolerated. Contacted [facility] pharmacy in [place] who states they cannot dispense Saxenda secondary to supply issues. Called [facility] pharmacy, and Saxenda continues to be on backorder until unknown date. Will send to other [facility] pharmacy in [place], but patient will continue to call pharmacies [...] will trial contrave first. Discussed referral for dining room coordinator, Patient declines at this time. Follow up [...] Wart of left hand, refer to dermatology. Lcro-ukv-tgrqnrc regimen not helping # Migraines: Adequate nutrition/hydration. [...] Dictation was accomplished with the use of Cadent voice recognition software, prone to medical misidentifications [...] educated on lifestyle modifications. Patient went to [place], and then went to [place] and states that she has been traveling [...] in addition to walking as tolerated. Contacted [facility] pharmacy in [place] who states they cannot dispense Saxenda secondary to supply issues. Called [facility] pharmacy, and Saxenda continues to be on backorder until unknown date. Will send to other [facility] pharmacy in [place], but patient will continue to call pharmacies [...] will trial contrave first. Discussed referral for dining room coordinator, Patient declines at this time. Follow up [...] Wart of left hand, refer to dermatology. Wtig-ijb-lxeagma regimen not helping # Migraines: Adequate nutrition/hydration. [...] Dictation was accomplished with the use of Cadent voice recognition software, prone to medical misidentifications [...] educated on lifestyle modifications. Patient went to [place], and then went to [place] and states that she has been traveling [...] in addition to walking as tolerated. Contacted [facility] pharmacy in [place] who states they cannot dispense Saxenda secondary to supply issues. Called [facility] pharmacy, and Saxenda continues to be on backorder until unknown date. Will send to other [facility] pharmacy in [place], but patient will continue to call pharmacies [...] will trial contrave first. Discussed referral for dining room coordinator, Patient declines at this time. Follow up [...] Dictation was accomplished with the use of Cadent voice recognition software, prone to medical misidentifications [...] educated on lifestyle modifications. Patient went to [place], and then went to [place] and states that she has been traveling [...] in addition to walking as tolerated. Contacted [facility] pharmacy in [place] who states they cannot dispense Saxenda secondary to supply issues. Called [facility] pharmacy, and Saxenda continues to be on backorder until unknown date. Will send to other [facility] pharmacy in [place], but patient will continue to call pharmacies [...] will trial contrave first. Discussed referral for dining room coordinator, Patient declines at this time. Follow up [...] Dictation was accomplished with the use of Cadent voice recognition software, prone to medical misidentifications [...] educated on lifestyle modifications. Patient went to [place], and then went to [place] and states that she has been traveling [...] in addition to walking as tolerated. Contacted [facility] pharmacy in [place] who states they cannot dispense Saxenda secondary to supply issues. Called [facility] pharmacy, and Saxenda continues to be on backorder until unknown date. Will send to other [facility] pharmacy in [place], but patient will continue to call pharmacies [...] Dictation was accomplished with the use of Cadent voice recognition software, prone to medical misidentifications [...] educated on lifestyle modifications. Patient went to [place], and then went to [place] and states that she has been traveling [...] in addition to walking as tolerated. Contacted [facility] pharmacy in [place] who states they cannot dispense Saxenda secondary to supply issues. Called [facility] pharmacy, and Saxenda continues to be on backorder until unknown date. Will send to other [facility] pharmacy in [place], but patient will continue to call pharmacies [...] will trial contrave first. Discussed referral for dining room coordinator, Patient declines at this time. Follow up [...] Dictation was accomplished with the use of Cadent voice recognition software, prone to medical misidentifications [...] year, Pap smear this year. Follows with [facility] for both of those things. Declines flu [...] educated on lifestyle modifications. Patient went to [place], and then went to [place] and states that she has been traveling [...] in addition to walking as tolerated. Contacted [facility] pharmacy in [place] who states they cannot dispense Saxenda secondary to supply issues. Called [facility] pharmacy, and Saxenda continues to be on backorder until unknown date. Will send to other [facility] pharmacy in [place], but patient will continue to call pharmacies [...] and red meat. Discussed fish, fish oil, Orlando's, healthy fats. # Right shoulder pain: X [...] log exercise and discussed fitness Apps like [employer] which can help keep log off calories [...] Dictation was accomplished with the use of Cadent voice recognition software, prone to medical misidentifications [...] year, Pap smear this year. Follows with [facility] for both of those things. Declines flu [...] educated on lifestyle modifications. Patient went to [place], and then went to [place] and states that she has been traveling [...] in addition to walking as tolerated. Contacted [facility] pharmacy in [place] who states they cannot dispense Saxenda secondary to supply issues. Called [facility] pharmacy, and Saxenda continues to be on backorder until unknown date. Will send to other [facility] pharmacy in [place], but patient will continue to call pharmacies [...] and red meat. Discussed fish, fish oil, Orlando's, healthy fats. # Right shoulder pain: X [...] log exercise and discussed fitness Apps like [employer] which can help keep log off calories [...] Dictation was accomplished with the use of Cadent voice recognition software, prone to medical misidentifications [...] educated on lifestyle modifications. Patient went to [place], and then went to [place] and states that she has been traveling [...] in addition to walking as tolerated. Contacted [facility] pharmacy in [place] who states they cannot dispense Saxenda secondary to supply issues. Called [facility] pharmacy, and Saxenda continues to be on backorder until unknown date. Will send to other [facility] pharmacy in [place], but patient will continue to call pharmacies [...] will trial contrave first. Discussed referral for dining room coordinator, Patient declines at this time. Follow up in 4-6 weeks # Hair loss: CBC, iron, TIBC, ferritin, ABHAY, CRP, estrogen, progesterone, testosterone, DHEA, TSH, T3, T4, were WNL, vitamin D was low, pt reports that she is taking vitamin D supplementation, vitamin B12 was low, pt recieved Vitamin B12 in office.Patient taking NutrAFUL [facility] improvment. Consider dermatology referral. # Migraines: Adequate [...] Dictation was accomplished with the use of Cadent voice recognition software, prone to medical misidentifications [...] educated on lifestyle modifications. Patient went to [place], and then went to [place] and states that she has been traveling [...] in addition to walking as tolerated. Contacted [facility] pharmacy in [place] who states they cannot dispense Saxenda secondary to supply issues. Called [facility] pharmacy, and Saxenda continues to be on backorder until unknown date. Will send to other [facility] pharmacy in [place], but patient will continue to call pharmacies [...] Dictation was accomplished with the use of Cadent voice recognition software, prone to medical misidentifications [...] educated on lifestyle modifications. Patient went to [place], and then went to [place] and states that she has been traveling [...] in addition to walking as tolerated. Contacted [facility] pharmacy in [place] who states they cannot dispense Saxenda secondary to supply issues. Called [facility] pharmacy, and Saxenda continues to be on backorder until unknown date. Will send to other [facility] pharmacy in [place], but patient will continue to call pharmacies [...] will trial contrave first. Discussed referral for dining room coordinator, Patient declines at this time. Follow up [...] Dictation was accomplished with the use of Cadent voice recognition software, prone to medical misidentifications [...] educated on lifestyle modifications. Patient went to [place], and then went to [place] and states that she has been traveling [...] in addition to walking as tolerated. Contacted [facility] pharmacy in [place] who states they cannot dispense Saxenda secondary to supply issues. Called [facility] pharmacy, and Saxenda continues to be on backorder until unknown date. Will send to other [facility] pharmacy in [place], but patient will continue to call pharmacies [...] will trial contrave first. Discussed referral for dining room coordinator, Patient declines at this time. Follow up [...] Dictation was accomplished with the use of [employer]ent voice recognition software, prone to medical misidentifications [...] educated on lifestyle modifications. Patient went to [place], and then went to [place] and states that she has been traveling [...] in addition to walking as tolerated. Contacted [facility] pharmacy in [place] who states they cannot dispense Saxenda secondary to supply issues. Called [facility] pharmacy, and Saxenda continues to be on backorder until unknown date. Will send to other [facility] pharmacy in [place], but patient will continue to call pharmacies [...] will trial contrave first. Discussed referral for dining room coordinator, Patient declines at this time. Follow up [...] Wart of left hand, refer to dermatology. Freo-vxz-upbjujg regimen not helping # Migraines: Adequate nutrition/hydration. [...] Dictation was accomplished with the use of Cadent voice recognition software, prone to medical misidentifications [...] educated on lifestyle modifications. Patient went to [place], and then went to [place] and states that she has been traveling [...] in addition to walking as tolerated. Contacted [facility] pharmacy in [place] who states they cannot dispense Saxenda secondary to supply issues. Called [facility] specialty pharmacy, and Saxenda continues to be on backorder until unknown date. Will send to other [facility] pharmacy in [place], but patient will continue to call pharmacies [...] will trial contrave first. Discussed referral for dining room coordinator, Patient declines at this time. Follow up [...] Wart of left hand, refer to dermatology. Omaw-eob-yjxploh regimen not helping # Migraines: Adequate nutrition/hydration. [...] Dictation was accomplished with the use of Cadent voice recognition software, prone to medical misidentifications [...] educated on lifestyle modifications. Patient went to [place], and then went to [place] and states that she has been traveling [...] in addition to walking as tolerated. Contacted [facility] pharmacy in [place] who states they cannot dispense Saxenda secondary to supply issues. Called [facility] specialty pharmacy, and Saxenda continues to be on backorder until unknown date. Will send to other [facility] pharmacy in [place], but patient will continue to call pharmacies [...] and red meat. Discussed fish, fish oil, Orlando's, healthy fats. # Right shoulder pain: X [...] Dictation was accomplished with the use of Cadent voice recognition software, prone to medical misidentifications [...] educated on lifestyle modifications. Patient went to [place], and then went to [place] and states that she has been traveling [...] in addition to walking as tolerated. Contacted [facility] pharmacy in [place] who states they cannot dispense Saxenda secondary to supply issues. Called [facility] specialty pharmacy, and Saxenda continues to be on backorder until unknown date. Will send to other [facility] pharmacy in [place], but patient will continue to call pharmacies [...] will trial contrave first. Discussed referral for dining room coordinator, Patient declines at this time. Follow up [...] Wart of left hand, refer to dermatology. Hedj-cuj-kofjjpe regimen not helping # Migraines: Adequate nutrition/hydration. [...] Dictation was accomplished with the use of Cadent voice recognition software, prone to medical misidentifications [...] educated on lifestyle modifications. Patient went to [place], and then went to [place] and states that she has been traveling [...] in addition to walking as tolerated. Contacted [facility] pharmacy in [place] who states they cannot dispense Saxenda secondary to supply issues. Called [facility] specialty pharmacy, and Saxenda continues to be on backorder until unknown date. Will send to other [facility] pharmacy in [place], but patient will continue to call pharmacies [...] will trial contrave first. Discussed referral for dining room coordinator, Patient declines at this time. Follow up [...] Wart of left hand, refer to dermatology. Lldt-vtu-exwulel regimen not helping # Migraines: Adequate nutrition/hydration. [...] Dictation was accomplished with the use of Cadent voice recognition software, prone to medical misidentifications [...] educated on lifestyle modifications. Patient went to [place], and then went to [place] and states that she has been traveling [...] in addition to walking as tolerated. Contacted [facility] pharmacy in [place] who states they cannot dispense Saxenda secondary to supply issues. Called [facility] specialty pharmacy, and Saxenda continues to be on backorder until unknown date. Will send to other [facility] pharmacy in [place], but patient will continue to call pharmacies [...] will trial contrave first. Discussed referral for dining room coordinator, Patient declines at this time. Follow up [...] Dictation was accomplished with the use of Cadent voice recognition software, prone to medical misidentifications [...] educated on lifestyle modifications. Patient went to [place], and then went to [place] and states that she has been traveling [...] in addition to walking as tolerated. Contacted [facility] pharmacy in [place] who states they cannot dispense Saxenda secondary to supply issues. Called [facility] specialty pharmacy, and Saxenda continues to be on backorder until unknown date. Will send to other [facility] pharmacy in [place], but patient will continue to call pharmacies [...] will trial contrave first. Discussed referral for dining room coordinator, Patient declines at this time. Follow up [...] recieved Vitamin B12 in office.Patient taking NutrAFUL wt improvment. Consider dermatology referral. No further workup [...] Dictation was accomplished with the use of Cadent voice recognition software, prone to medical misidentifications [...] educated on lifestyle modifications. Patient went to [place], and then went to [place] and states that she has been traveling [...] in addition to walking as tolerated. Contacted [facility] pharmacy in [place] who states they cannot dispense Saxenda secondary to supply issues. Called [facility] specialty pharmacy, and Saxenda continues to be on backorder until unknown date. Will send to other [facility] pharmacy in [place], but patient will continue to call pharmacies [...] Dictation was accomplished with the use of Cadent voice recognition software, prone to medical misidentifications [...] year, Pap smear this year. Follows with [facility] for both of those things. Declines flu [...] educated on lifestyle modifications. Patient went to [place], and then went to [place] and states that she has been traveling [...] in addition to walking as tolerated. Contacted [facility] pharmacy in [place] who states they cannot dispense Saxenda secondary to supply issues. Called [facility] specialty pharmacy, and Saxenda continues to be on backorder until unknown date. Will send to other [facility] pharmacy in [place], but patient will continue to call pharmacies [...] and red meat. Discussed fish, fish oil, Orlando's, healthy fats. # Right shoulder pain: X [...] log exercise and discussed fitness Apps like [employer] which can help keep log off calories [...] Dictation was accomplished with the use of Cadent voice recognition software, prone to medical misidentifications [...] educated on lifestyle modifications. Patient went to [place], and then went to [place] and states that she has been traveling [...] in addition to walking as tolerated. Contacted [facility] pharmacy in [place] who states they cannot dispense Saxenda secondary to supply issues. Called [facility] specialty pharmacy, and Saxenda continues to be on backorder until unknown date. Will send to other [facility] pharmacy in [place], but patient will continue to call pharmacies [...] will trial contrave first. Discussed referral for dining room coordinator, Patient declines at this time. Follow up [...] Dictation was accomplished with the use of Cadent voice recognition software, prone to medical misidentifications [...] educated on lifestyle modifications. Patient went to [place], and then went to [place] and states that she has been traveling [...] in addition to walking as tolerated. Contacted [facility] pharmacy in [place] who states they cannot dispense Saxenda secondary to supply issues. Called [facility] specialty pharmacy, and Saxenda continues to be on backorder until unknown date. Will send to other [facility] pharmacy in [place], but patient will continue to call pharmacies [...] will trial contrave first. Discussed referral for dining room coordinator, Patient declines at this time. Follow up [...] Wart of left hand, refer to dermatology. Uxji-wzk-muldlqn regimen not helping # Migraines: Adequate nutrition/hydration. [...] Dictation was accomplished with the use of Cadent voice recognition software, prone to medical misidentifications [...] 04/13/2025 Next Appt Details Provider Name:CARLOS BARCENAS, 08/10/2025 03:00:00 PM, [address], [place], [address], Insurance Providers Payer Name Payer Address Payer Phone Subscriber Number Group Number Insured Name Patient Relationship to Insured Coverage Start Date Coverage End Date [facility] [address] [place] [address] [phone] [id number] Glenis Menchaca Self - patient is the insured Medications Administered Medication Instructions Date of Administration Dosage Notes MICC B12 INJECTION 10/31/2022 lot # [id number] MICC B12 INJECTION 12/05/2022 MICC B12 INJECTION 01/09/2023 lot [id number] MICC B12 INJECTION 11/17/2024 1 mL Semaglutide 04/12/2023 0.25 mg sema 0.25mg Semaglutide 04/19/2023 0.25 mg LRQ SQ Semaglutide 04/27/2023 0.25 sema 0.25mg Semaglutide 05/04/2023 lot#[id number] 0.25mg Semaglutide 05/11/2023 0.25 mg LRQ SQ Semaglutide 05/18/2023 0.5 mg LRQ SQ Semaglutide 05/24/2023 0.5 sema 0.5mg Semaglutide 05/31/2023 lot#[id number] 0.5mg Semaglutide 06/05/2023 0.5 mg LRQ SQ Semaglutide 06/07/2023 0.5 Semaglutide 06/14/2023 0.5 mg LRQ SQ Semaglutide 06/27/2023 lot#[id number] 0.5mg Semaglutide 07/05/2023 0.5 mg LRQ SQ [...]
--- OUTSIDE RECORDS SUMMARY | 2025-06-08 17:08 | XMS_ITS | Clinical Summary ---
Author Organization [facility] Address [address] [place] [address] Care Team Providers Care Lining Parts Sewer Name Role Phone Unavailable Primary Care Provider [...]
== END 2025-06-08 16:04 | disposition home or self-care (01) ==
LOC: HO.MRI 16:03
PROVIDERS: Visit Provider Nurse Practitioner
DX: R51.9 Headache, unspecified (principal)
CPT/HCPCS: 70544; 70546; 70551; A9585

== ENCOUNTER 2025-06-17 16:40 | Outpatient (REF) | payer BC, SELFPAY ==
--- OUTSIDE RECORDS SUMMARY | 2024-12-22 06:15 | XMS_ITS ---
Author Organization [facility] [address] Address [address] [place] [address] Care Team Providers Care Map Colorer Name Role Phone CARLOS BARCENAS Unavailable [phone] Encounters Encounter Location Date Provider Diagnosis [facility] [address] [place] [address] 12/22/2024 CARLOS BARCENAS Plan Of Treatment Next Appt Details Provider Name:CARLOS BARCENAS, 08/10/2025 03:00:00 PM, [address], [place], [address], Progress Notes * Glenis MENCHACADOB: 3 (44 yo F)Acc No.[id number]:12/22/2024 Patient: Nettie Glenis brennan Provider: Josefina BARCENAS PA-C :1980 A ge:44 Y S ex:Female Date:12/22/2024 Address:[address] [place] [address] * Electronic signature of HANNAH BARCENAS PA-C on 06/17/2025 at 07:08 PM EST Sign off status: Pending * Provider: Josefina BARCENAS PA-C Date: 0 12/22/2024 Generated for Mitchel rojo/Tamir/eTalesmitting on: 1 08/17/2024 07:08 PM EST
--- OUTSIDE RECORDS SUMMARY | 2025-06-17 19:08 | XMS_ITS | Clinical Summary ---
Author Organization [facility] Address [address] [place] [address] Phone Care Team Providers Care Skates Operator Name Role Phone Unavailable Primary Care Provider [...] Depression Screening 08/06/2024 COVID-19 Vaccine ( - 2024- season) 2025 Influenza Vaccine (#1) 2025 Breast [...] Procedure Name Priority Date/Time Associated Diagnosis Comments [facility] SCREENING DIGITAL Routine 02/20/2024 4:50 PM EDT Encounter for screening mammogram for malignant neoplasm of breast from Last 3 Months or Most Recently Relevant to Health Maintenance Results * [facility] SCREENING DIGITAL (02/20/2024 4:50 PM EDT) Anatomical Region Laterality Modality Mammography 02/20/2024 10:5 7 AM EDT Narrative 02/20/2024 4:50 PM EDT [facility] Diagnostic Imaging Department [address] [place] [address] Patient: GLENIS MENCHACA./Age/Sex: 1980 - 43 - F Unit#: [id number] Location/Status: [facility] Mnemonic/Ordering Site: [facility] Ordering Physician: HILL KERNS MD [facility] Screening Digital - 02/20/24 - 1121 Report Status:Signed EXAM: [facility] Screening Digital EXAM DATE AND TIME: 02/20/2024 11:31 AM HISTORY: Screening. Left breast biopsy in 2020, pathology benign. Family history of breast carcinoma including 2 paternal aunts and 2 maternal second cousins. COMPARISON: 02/14/23, 03/02/22, 01/17/21 TECHNIQUE: Bilateral digital breast tomosynthesis was performed in the CC and MLO projections. Computer aided detection with DeliveryCheetah 3D 3.1 was employed. TISSUE DENSITY: c. [...] Procedure Note Sammie Sauer MD - 05/21/2024 [facility] Diagnostic Imaging Department [address] [place] [address] Patient: GLENIS MENCHACA./Age/Sex: 1980 - 43 - F Unit#: [id number] Location/Status: [facility] Mnemonic/Ordering Site: [facility] Ordering Physician: HILL KERNS MD [facility] Screening Digital - 02/20/24 - 1121 Report Status:Signed EXAM: [facility] Screening Digital EXAM DATE AND TIME: 02/20/2024 11:31 AM HISTORY: Screening. Left breast biopsy in 2020, pathology benign.Family history of breast carcinoma including 2 paternal aunts and 2 maternalsecond cousins. COMPARISON: 02/14/23, 03/02/22, 01/17/21 TECHNIQUE: Bilateral digital breast tomosynthesis was performed in the CCand MLO projections. Computer aided detection with DeliveryCheetah 3D 3.1was employed. TISSUE DENSITY: c. The [...] Recently Relevant to Health Maintenance Insurance [facility] [place]
--- OUTSIDE RECORDS SUMMARY | 2025-06-17 19:09 | XMS_ITS | Patient Health Record ---
Author Organization [facility] [address] Address [address] [place] [address] Care Team Providers Care [employer] Front Desk Agent Name Role Phone CARLOS BARCENAS [phone] Allergies Allergen (clinical drug ingredient) Drug/Non Drug Allergy documented on EMR Reaction Allergy Type Onset Date Status covid vaccine (uncoded) hives and chest pain Allergy Active Vaccine product containing Influenza virus antigen (medicinal product) flu shot (uncoded) hives Allergy Ac tive acetaminophen / oxycodone Percocet hives Drug Allergy Active Results Component Value Reference Range Flag Notes TRAB Reviewed date:05/13/2025 01:37:55 PM Interpretation: Performing Lab:[facility]/Alberto MckeonMike [id number] Brice Aceves, [id number] Dario Galvez M.D.,PhD Notes/Report: TRAB <1.00 <=2.00 IU/L This test was performed using the TRAb Antibody JEFFREY method which is standardized against the 1st International Standard 90/672 and is reported in International Units (IU/L). The reference range reported was established specifically for this test method. T3, FREE Reviewed date:05/11/2025 04:29:14 PM Interpretation: Performing Lab:[facility] [place], [place] [address] Bola Fowler Notes/Report: T3, FREE 3.3 2.3-4.2 pg/mL N TSH W/REFLEX TO FT4 Reviewed date:05/11/2025 04:29:14 PM Interpretation: Performing Lab:[facility]Quest Xkrp[address] Bola Fowler Notes/Report: TSH W/REFLEX TO FT4 1.31 N Reference Range > or = 20 Years 0.40-4.50 Ranges First trimester 0.26-2.66 Second trimester 0.55-2.73 Third trimester 0.43-2.91 THYROID PEROXIDASE AND THYRO GLOBULIN ANTIBODIES Reviewed date:05/12/2025 12:50:05 PM Interpretation: Performing Lab:NL2, [facility] HospitalWi[facility] F[address] [place], [place] [address] Bola Fowler Notes/Report: THYROGLOBULIN ANTIBODIES <1 < or = 1 IU/mL N THYROID PEROXIDASE ANTIBODIES <1 <9 IU/mL N TESTOSTERONE, TOTAL, MS Reviewed date:09/19/2024 07:49:43 AM Interpretation: Performing Lab:[facility] [id number] Brice Aceves, [id number] Dario Galvez M.D.,PhD Notes/Report: FASTING:YES FASTING: YES TESTOSTERONE, TOTAL, MS 9 2-45 ng/dL For additional information, please refer to http://education.Melon #usemelon/faq/ TotalTestosteroneLCMSMSFA Q165 (This link is being provided for informational/ educational purposes only.) This test was developed and its analytical performance characteristics have been determined by [facility] [place], [place]. It has not been cleared or approved by the U.S. Food and Drug Administration. This assay has been validated pursuant to the CLIA regulations and is used for clinical purposes. ESTROGEN, TOTAL, SERUM Reviewed date:09/19/2024 07:49:48 AM Interpretation: Performing Lab:[facility] HospitalHernandez,[address] [address] Lars[address] Bayhector [id number] Ruchi Chau MD,PhD,DEDE Notes/Report: FASTING:YES FASTING: YES ESTROGENS, TOTAL, IA 86 Reference Ranges for Total Estrogen: Follicular Phase: 51-601 Luteal Phase: 87-1194 Postmenopausal: < or = 214 VITAMIN D,25-OH,TOTAL,IA Reviewed date:09/16/2024 08:01:36 AM Interpretation: Performing Lab:[facility], [facility] HospitalPiv[facility] Software[address] Mariondacia Waggoner Janeth Notes/Report: FASTING:YES FASTING: YES VITAMIN D,25-OH,TOTAL,IA 21 30-100 ng/mL L Vitamin D Status 25-OH Vitamin D: Deficiency: <20 ng/mL Insufficiency: 20 - 29 ng/mL Optimal: > or = 30 ng/mL For 25-OH Vitamin D testing on patients on D2-supplementation and patients for whom quantitation of D2 and D3 fractions is required, the QuestAssureD(TM) 25-OH VIT D, (D2,D3), LC/MS/MS is recommended: order code 72404 (patients >2yrs). See Note 1 Note 1 For additional information, please refer to http://education.[employer]/faq/KWY390 (This link is being provided for informational/ educational purposes only.) VITAMIN B12 Reviewed date:09/18/2024 07:43:06 AM Interpretation: Performing Lab:KATY2, [facility] Software[address] Mariondacia Rosaline Fowler Notes/Report: FASTING:YES FASTING: YES VITAMIN B12 200 240-1369 pg/mL N CBC (INCLUDES DIFF/PLT) Reviewed date:09/16/2024 08:01:36 AM Interpretation: Performing Lab:[facility], [facility] Marion Rosaline Janeth Notes/Report: FASTING:YES FASTING: YES WHITE BLOOD CELL COUNT 8.1 3.8-10.8 Thousand/uL N RED BLOOD CELL COUNT 4.05 3.80-5.10 Million/uL N HEMOGLOBIN 11.6 11.7-15.5 g/dL L HEMATOCRIT 35.2 35.0-45.0 % N MCV 86.9 80.0-100.0 fL N MCH 28.6 27.0-33.0 pg N MCHC 33.0 32.0-36.0 g/dL N For adults, a slight decrease in the calculated MCHC value (in the range of 30 to 32 g/dL) is most likely not clinically significant; however, it should be interpreted with caution in correlation with other red cell parameters and the patient's clinical condition. RDW 12.1 11.0-15.0 % N PLATELET COUNT 254 140-400 Thousand/uL N MPV 10.6 7.5-12.5 fL N ABSOLUTE NEUTROPHILS 6197 5995-1734 cells/uL N ABSOLUTE LYMPHOCYTES 0984 748-6804 cells/uL N ABSOLUTE MONOCYTES 405 200-950 cells/uL N ABSOLUTE EOSINOPHILS 81 15-500 cells/uL N ABSOLUTE BASOPHILS 41 0-200 cells/uL N NEUTROPHILS 76.5 N LYMPHOCYTES 17.0 N MONOCYTES 5.0 N EOSINOPHILS 1.0 N BASOPHILS 0.5 N COMPREHENSIVE METABOLIC PANE L Reviewed date:09/16/2024 08:01:36 AM Interpretation: Performing Lab:NL2, [facility] [place] MDconnectME[address] Bola Fowler Notes/Report: FASTING:YES FASTING: YES GLUCOSE 95 65-99 mg/dL N Fasting reference interval UREA NITROGEN (BUN) 24 7-25 mg/dL N CREATININE 0.65 0.50-0.99 mg/dL N EGFR 113 > OR = 60 mL/min/1.73m2 N BUN/CREATININE RATIO SEE NOTE: 6-22 (calc) Not Reported: BUN and Creatinine are within reference range. SODIUM 137 135-146 mmol/L N POTASSIUM 4.2 3.5-5.3 mmol/L N CHLORIDE 103 98-110 mmol/L N CARBON DIOXIDE 25 20-32 mmol/L N CALCIUM 8.8 8.6-10.2 mg/dL N PROTEIN, TOTAL 6.4 6.1-8.1 g/dL N ALBUMIN 4.1 3.6-5.1 g/dL N GLOBULIN 2.3 1.9-3.7 g/dL (calc) N ALBUMIN/GLOBULIN RATIO 1.8 1.0-2.5 (calc) N BILIRUBIN, TOTAL 0.3 0.2-1.2 mg/dL N ALKALINE PHOSPHATASE 38 31-125 U/L N AST 19 10-30 U/L N ALT 13 6-29 U/L N IRON, TIBC AND FERRITIN PANE L Reviewed date:09/16/2024 08:01:36 AM Interpretation: Performing Lab:NL2, [employer] Bola Rubindimitrygavi Notes/Report: FASTING:YES FASTING: YES IRON, TOTAL 70 40-190 mcg/dL N IRON BINDING CAPACITY 351 250-450 mc g/dL (calc) N % SATURATION 20 16-45 % (calc) N FERRITIN 37 16-232 ng/mL N LIPID PANEL, STANDARD Reviewed date:09/16/2024 08:01:36 AM Interpretation: Performing Lab:NL2, [facility] Bola Rubinaniceto Notes/Report: FASTING:YES FASTING: YES CHOLESTEROL, TOTAL 240 <200 mg/dL H HDL CHOLESTEROL 64 > OR = 50 mg/dL N TRIGLYCERIDES 126 <150 mg/dL N LDL-CHOLESTEROL 151 H Reference range: <100 Desirable range <100 mg/dL for primary prevention; <70 mg/dL for patients with CHD or diabetic patients with > or = 2 CHD risk factors. LDL-C is now calculated using the Jose Luis calculation, which is a validated novel method providing better accuracy than the Friedewald equation in the estimation of LDL-C. Bj SS et al. JOSE A. 2013;310(19): 6222-2683 (http://education.Cynapsus [employer]/faq/LPW800) CHOL/HDLC RATIO 3.8 <5.0 (calc) N NON HDL CHOLESTEROL 176 <130 mg/dL (calc) H For patients with diabetes plus 1 major ASCVD risk factor, treating to a non-HDL-C goal of <100 mg/dL (LDL-C of <70 mg/dL) is considered a therapeutic option. T3, FREE Reviewed date:09/16/2024 08:01:36 AM Interpretation: Performing Lab:NL2, [facility] Mariondacia Waggoner Janeth Notes/Report: FASTING:YES FASTING: YES T3, FREE 3.3 2.3-4.2 pg/mL N TSH Reviewed date:09/16/2024 08:01:36 AM Interpretation: Performing Lab:NLCanwest, [facility] Bola Han Notes/Report: FASTING:YES FASTING: YES TSH 2.16 N Reference Range > or = 20 Years 0.40-4.50 Ranges First trimester 0.26-2.66 Second trimester 0.55-2.73 Third trimester 0.43-2.91 T4, FREE Reviewed date:09/16/2024 08:01:36 AM Interpretation: Performing Lab:NL2, [facility] HospitalPivotal SoftwareDavid [place]ille [id number] Baker Streetdacia [facility] Notes/Report: FASTING:YES FASTING: YES T4, FREE 1.1 0.8-1.8 ng/dL N DHEA SULFATE Reviewed date:09/16/2024 08:01:36 AM Interpretation: Performing Lab:NL2, [facility] HospitalPivotal SoftwareDavid [place] [id number] Marion Rosaline [facility] Notes/Report: FASTING:YES FASTING: YES DHEA SULFATE 48 15-205 mcg/dL N HS CRP Reviewed date:09/16/2024 08:01:36 AM Interpretation: Performing Lab:NL2, [facility] HospitalPivotal SoftwareDavid [place] [id number] Rosaline [facility] Notes/Report: FASTING:YES FASTING: YES HS CRP 5.3 H Reference Range Optimal <1.0 Jealberta PS et [...] for Disease Control and Prevention and the [place] [employer]. Circulation 2003; 107(3): 499-511. ABHAY SCREEN, IFA, W/REFL TITE R AND PATTERN Reviewed date:09/18/2024 04:03:26 PM Interpretation: Performing Lab:NL2, [facility] Tlermdps[address] [facility] Mariondacia Resendizjose guadalupe Notes/Report: FASTING:YES FASTING: YES ABHAY SCREEN, IFA NEGATIVE NEGATIVE N ABHAY IFA is a first line screen [...] AC-0: Negative International Consensus on ABHAY Patterns (https://doi.org/10.1515/ zixp-1409-0532) For additional information, please refer to http://education.V[employer]ae [employer]/faq/SFR240 (This link is being provided for informational/ educational purposes only.) Reason For Referral Reason evaluate & treat m ay benefit from cortisone injection Diagnosis 1 Tendinopathy (M67.90 ) Diagnosis 2 Degenerative disc di sease, thoracic (M51.34) Referral Organization [facility] Referring Provider First Name CARLOS Referring Provider Last Name SWAPNA Referring Provider Speciality Internal M edicine Referred Provider Specialty Orthopedic S urgery General Notes Zara Serrano 12/01 03:18:54 PM > form filled out and faxed over chilango Hanson.[phone], [phone] Clinical Notes Halie Mc 2024 09:41:59 AM >Scheduled 01/01/25 at 145PM Eliane Brown in [place]. Referral Priority Routine Reason Migraines Diagnosis 1 Episodic migraine (G 43.909) Referral Organization [facility] [address] Referring Provider First Name CARLOS Referring Provider Last Name SWAPNA Referring Provider Speciality Internal M edicine Referred Provider Specialty Neurology General Notes Please refer to [facility], [address] [place] [address], [address], [place] [address], [phone], [phone] Clinical Notes Graciela Aguilera 07/2025 10:15:09 AM > pt requesting a call once referral sent., Kemar Horvath 04/23/2025 03:18:56 PM > I called pt, she was booked on may 05 Referral Priority Stat Reason Evaluate & Treat W art of left hand, non-healing Diagnosis 1 Wart of hand (B07.9) [facility] Referring Provider First Name CARLOS Referring Provider Last Name SWAPNA Referring Provider Speciality Internal M edicine Referred Provider Specialty Dermatology General Notes Margi Salter 0 04/13/2025 02:27:07 PM > Referral to [facility], p. [phone], f. [phone] Referral Priority Routine Medications Medication SIG (Take, Route, Frequency, Duration) Notes Start Date End Date Status Escitalopram Oxalate 5 MG Tablet TAKE 1 TABLET BY MOUTH EVERY DAY; Duration: 90 Active Omeprazole 40 MG Capsule Delayed Release TAKE 1 CAPSULE BY MOUTH EVERY DAY 30 MINUTES BEFORE MORNING MEAL FOR 90 DAYS; Duration: 90 Active Wegovy 1.7 MG/0.75ML Solution Auto-injector 1.7 mg; Duration: 30 days Active Rosuvastatin Calcium 10 MG Tablet 1 tablet Orally Once a day; Duration: 90 days Active SUMAtriptan Succinate 25 MG Tablet 25 mg prn, additional dose 2 hours later prn Orally daily; Duration: 15 days 06/10/2024 Active Social History Tobacco Use: Social History Observation Description Date Details (start date - stop date) Never Smoker NA - NA Social History Tobacco Use: Social Info Question Answer Notes Tobacco Use/Smoking Are you a nonsmoker Section Notes: Tob: denies current use alcohol: socially drug: denies caffeine: coffee daily exercise: enjoys walking 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: denies current use alcohol: socially drug: denies caffeine: coffee daily exercise: enjoys walking 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: denies 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 use alcohol: socially drug: denies caffeine: coffee daily exercise: enjoys walking 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: denies 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 use alcohol: socially drug: denies caffeine: coffee daily exercise: enjoys walking 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: denies 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 alcohol: socially drug: denies caffeine: coffee daily exercise: enjoys walking 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: denies 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 alcohol: socially drug: denies caffeine: coffee daily exercise: enjoys walking 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: denies 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 alcohol: socially drug: denies caffeine: coffee daily exercise: enjoys walking 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: denies 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 alcohol: socially drug: denies caffeine: coffee daily exercise: enjoys walking 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: denies current use alcohol: socially drug: denies caffeine: coffee daily exercise: enjoys walking 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: denies 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 alcohol: socially drug: denies caffeine: coffee daily exercise: enjoys walking 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: denies 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 use alcohol: socially drug: denies caffeine: coffee daily exercise: enjoys walking 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: denies 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 alcohol: socially drug: denies caffeine: coffee daily exercise: enjoys walking 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: denies 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 alcohol: socially drug: denies caffeine: coffee daily exercise: enjoys walking 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: denies 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 alcohol: socially drug: denies caffeine: coffee daily exercise: enjoys walking 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: denies 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 alcohol: socially drug: denies caffeine: coffee daily exercise: enjoys walking 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: denies 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 alcohol: socially drug: denies caffeine: coffee daily exercise: enjoys walking 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: denies 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 alcohol: socially drug: denies caffeine: coffee daily exercise: enjoys walking 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: denies 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 alcohol: socially drug: denies caffeine: coffee daily exercise: enjoys walking 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: denies 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 use alcohol: socially drug: denies caffeine: coffee daily exercise: enjoys walking 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: denies 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 alcohol: socially drug: denies caffeine: coffee daily exercise: enjoys walking 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: denies current use alcohol: socially drug: denies caffeine: coffee daily exercise: enjoys walking 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: denies 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 alcohol: socially drug: denies caffeine: coffee daily exercise: enjoys walking 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: denies 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 alcohol: socially drug: denies caffeine: coffee daily exercise: enjoys walking 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[employer] Problems Problem Type SNOMED Code ICD Code Onset Dates Problem Status W/U Status Risk Notes Problem Vitamin D deficiency (37584867) Vitamin D deficiency, unspecified (E55.9) Active confirmed Problem Overweight (281109626) Overweight (E66.3) Active confirmed Problem Obesity (978561235) Other obesity (E66.8) Active confirmed Problem Mixed hyperlipidemia (532416477) Mixed hyperlipidemia (E78.2) Active confirmed Problem Shoulder joint pain (545674140) Shoulder pain, unspecified chronicity, unspecified laterality (M25.519) Active confirmed Problem Hyperlipidaemia (95839137) Hyperlipidemia, unspecified hyperlipidemia type (E78.5) Active confirmed Problem Shoulder joint pain (940998625) Right shoulder pain, unspecified chronicity (M25.511) Active confirmed Problem Acquired hypothyroidism (459250979) Acquired hypothyroidism (E03.9) Active confirmed Problem Anxiety (24969467) Anxiety (F41.9) Active confi rmed Problem Hyperlipoproteinemia (2898495) 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) Active confirmed Problem Vitamin D deficiency (13506745) Vitamin D deficiency (E55.9) Active confirmed Problem Alopecia (41524755) Hair loss (L65.9) Active co nfirmed Problem Gastroesophageal reflux disease without esophagitis (587093939) Gastroesophageal reflux disease without esophagitis (K21.9) Active confirmed Problem Obesity (483993917) Obesity (BMI 30-39.9) (E66.9) Active confirmed Problem Obese class I (160350252367029) BMI 33.0-33.9,adult (Z68.33) Active confirmed Problem BMI 30+ - obesity (886502888) BMI 32.0-32.9,adult (Z68.32) Active confirmed Problem Degeneration of thoracic intervertebral disc (17297407) Degenerative disc disease, thoracic (M51.34) Active confirmed Problem Vitamin B>12< deficiency anaemia (90496697) Anemia due to vitamin B12 deficiency, unspecified B12 deficiency type (D51.9) Active confirmed Problem Body mass index 30.0 0 to 34.99 (951303614050004) BMI 31.0-31.9,adult (Z68.31) Active confirmed Problem Body mass index 30+ - obesity (701352942) BMI 30.0-30.9,adult (Z68.30) Active confirmed Problem Tension-type headach e (276690419) Acute intractable tension-type headache (G44.201) Active confirmed Problem Gastroesophageal reflux disease (722559971) GERD (gastroesophageal reflux disease) (K21.9) Active confirmed Problem Hyperlipidemia (73863601) Hyperlipidemia (E78.5) Active confirmed Problem Episodic migraine (608597297105703) Episodic migraine (G43.909) Active confirmed Problem Hypophosphatemia (6515730) Hypophosphatemia (E83.39) Active confirmed Problem Laboratory test result abnormal (464125478) Low liver alkaline phosphatase level (R74.8) Active confirmed Problem Tendinopathy (04975629) Tendinopathy (M67.90) Active confirmed Vital Signs Heart Rate 86 /min 06/08/2025 Oximetry 95 % 06/08/2025 Blood pressure diastolic 78 mm Hg 06/08/2025 Height 69 in 06/08/2025 Blood pressure systolic 122 mm Hg 06/08/2025 Weight 219.4 lbs 06/08/2025 BMI 32.4 kg/m2 06/08/2025 Encounters Encounter Location Date Provider Diagnosis [facility] [address] [place] [address] 07/28/2024 CARLOS BARCENAS Overweight E66.3 ; B [place] 29.0-29.9,adult Z68.29 ; Gastroesophageal reflux disease without esophagitis K21.9 ; Anxiety F41.9 ; Mixed hyperlipidemia E78.2 ; Pain, joint, shoulder, right M25.511 ; Episodic migraine G43.909 and Nutritional counseling Z71.3 [facility] [address] [place] [address] 09/10/2024 CARLOS BARCENAS Overweight E66.3 ; B [place] 29.0-29.9,adult Z68.29 ; Anxiety F41.9 ; Mixed hyperlipidemia E78.2 ; Pain, joint, shoulder, right M25.511 ; Episodic migraine G43.909 ; Nutritional counseling Z71.3 ; Hair loss L65.9 and Hyperlipidemia, unspecified hyperlipidemia type E78.[address] [address] [address] 11/17/2024 CARLOS BARCENAS Anxiety F41.9 ; Pain , joint, shoulder, left M25.512 ; Mixed hyperlipidemia E78.2 ; Episodic migraine G43.909 ; Nutritional counseling Z71.3 ; Hair loss L65.9 ; Hyperlipidemia, unspecified hyperlipidemia type E78.5 and BMI 32.0-32.9,adult Z68.[address] [address] 12/24/2024 CARLOSMaster BARCENAS Obesity (BMI 30-39.9 ) E66.9 ; BMI 33.0-33.9,adult Z68.33 ; Pain, joint, shoulder, left M25.512 ; Anxiety F41.9 ; Mixed hyperlipidemia E78.2 ; Episodic migraine G43.909 ; Nutritional counseling Z71.3 ; Hair loss L65.9 and Encounter for examination of blood pressure without abnormal findings Z01.[address] 03/04/2025 CARLOSMaster BARCENAS Obesity (BMI 30-39.9 ) E66.9 ; BMI 33.0-33.9,adult Z68.33 ; Pain, joint, shoulder, left M25.512 ; Anxiety F41.9 ; Mixed hyperlipidemia E78.2 ; Episodic migraine G43.909 ; Nutritional counseling Z71.3 ; Hair loss L65.9 and Encounter for examination of blood pressure without abnormal findings Z01.[address] [address] 04/13/2025 CARLOSMaster BARCENAS Obesity (BMI 30-39.9 ) E66.9 ; BMI 32.0-32.9,adult Z68.32 ; Pain, joint, shoulder, left M25.512 ; Anxiety F41.9 ; Mixed hyperlipidemia E78.2 ; Episodic migraine G43.909 ; Nutritional counseling Z71.3 ; Hair loss L65.9 and Encounter for examination of blood pressure without abnormal findings Z01.[address] [address] 06/08/2025 CARLOSMaster BARCENAS Obesity (BMI 30-39.9 ) E66.9 ; BMI 32.0-32.9,adult Z68.32 ; Pain, joint, shoulder, left M25.512 ; Anxiety F41.9 ; Mixed hyperlipidemia E78.2 ; Episodic migraine G43.909 ; Nutritional counseling Z71.3 ; Hair loss L65.9 and Encounter for examination of blood pressure without abnormal findings Z01.[address] [place] [address] 07/07/2024 CARLOSMaster BARCENAS Overweight E66.3 [facility] [address] [facility] [address] [place], [place] 07/18/2024 CARLOSMaster BARCENAS Gastroesophageal ref lux disease without esophagitis K21.9 [facility] [address] [facility] [address] [place] [address] 07/28/2024 CARLOS BARCENAS [facility] [address] [place] [address] 09/08/2024 CARLOS BARCENAS [facility] [address] [place], [place] 09/16/2024 CARLOS BARCENAS [facility] [address] 11/17/2024 CARLOS BARCENAS [facility] [address] [place], [place] 11/17/2024 CARLOS BARCENAS Shoulder pain, unspe cified chronicity, unspecified laterality M25.[address] [facility] [place] [address] 02/02/2025 CARLOS BARCENAS [facility] [address] [place], [place] 02/24/2025 CARLOS BARCENAS [facility] [address] [place], [place] 03/31/2025 CARLOS BARCENAS [facility] [address] [place], [place] 04/13/2025 CARLOS BARCENAS [facility] [address] [facility] [address] [place] [address] 04/17/2025 CARLOS BARCENAS [facility] [address] [place] [address] 04/23/2025 CARLOS BARCENAS Obesity (BMI 30-39.9 ) E66.9 [facility] [phone] [facility] [address] [place] [address] 05/04/2025 CARLOS BARCENAS [facility] [address] [facility] [address] [place] [address] 11/14/2024 CARLOS BARCENAS [facility] [address] [facility] [address] [place] [address] 02/02/2025 CARLOS BARCENAS [facility] [address] [place] [address] 02/02/2025 CARLOS BARCENAS [facility] [address] [place] [address] 02/02/2025 CARLOS BARCENAS [facility] [address] [place] [address] 02/02/2025 CARLOS BARCENAS [facility] [address] [place] [address] 02/02/2025 CARLOS BARCENAS [facility] [address] [place] [address] 02/02/2025 CARLOS BARCENAS [facility] [address] [place] [address] 02/02/2025 CARLOS BARCENAS Assessments Encounter Date Diagnosis (ICD Code) Assessment Notes Treatment Notes Treatment Clinical Notes Section Notes 07/07/2024 Overweight (ICD-10 - E66.3) 07/18/2024 Gastroesophageal [...] educated on lifestyle modifications. Patient went to [place], and then went to [place] and states that she has been traveling [...] in addition to walking as tolerated. Contacted [facility] pharmacy in [place] who states they cannot dispense Saxenda secondary to supply issues. Called [facility] specialty pharmacy, and Saxenda continues to be on backorder until unknown date. Will send to other [facility] pharmacy in [place], but patient will continue to call pharmacies [...] Dictation was accomplished with the use of [employer] voice recognition software, prone to medical misidentifications [...] educated on lifestyle modifications. Patient went to [place], and then went to [place] and states that she has been traveling [...] in addition to walking as tolerated. Contacted [facility] pharmacy in [place] who states they cannot dispense Saxenda secondary to supply issues. Called [facility] pharmacy, and Saxenda continues to be on backorder until unknown date. Will send to other [facility] pharmacy in [place], but patient will continue to call pharmacies [...] Dictation was accomplished with the use of [employer] voice recognition software, prone to medical misidentifications [...] educated on lifestyle modifications. Patient went to [place], and then went to [place] and states that she has been traveling [...] in addition to walking as tolerated. Contacted [facility] pharmacy in [place] who states they cannot dispense Saxenda secondary to supply issues. Called [facility] pharmacy, and Saxenda continues to be on backorder until unknown date. Will send to other [facility] pharmacy in [place], but patient will continue to call pharmacies [...] will trial contrave first. Discussed referral for imaging analyst, Patient declines at this time. Follow up in 4-6 weeks # Hair loss: CBC, iron, TIBC, ferritin, ABHAY, CRP, estrogen, progesterone, testosterone, DHEA, TSH, T3, T4, were WNL, vitamin D was low, pt reports that she is taking vitamin D supplementation, vitamin B12 was low, pt recieved Vitamin B12 in office.Patient taking NutrAFUL [facility] improvment. Consider dermatology referral. # Migraines: Adequate [...] Dictation was accomplished with the use of [employer] voice recognition software, prone to medical misidentifications [...] educated on lifestyle modifications. Patient went to [place], and then went to [place] and states that she has been traveling [...] in addition to walking as tolerated. Contacted [facility] pharmacy in [place] who states they cannot dispense Saxenda secondary to supply issues. Called [facility] pharmacy, and Saxenda continues to be on backorder until unknown date. Will send to other [facility] pharmacy in [place], but patient will continue to call pharmacies [...] will trial contrave first. Discussed referral for imaging analyst, Patient declines at this time. Follow up [...] Dictation was accomplished with the use of [employer] voice recognition software, prone to medical misidentifications and grammatical errors. This is unintentional and the practitioner does try to identify and correct these, but some could still be present. Please do not hesitate to contact practitioner for clarification. 11/17/2024 Shoulder pain, unspecified chronicity, unspecified laterality (ICD-10 - M25.519) 03/04/2025 Obesity (BMI 30-39.9) (ICD-10 - E66.9) [...] educated on lifestyle modifications. Patient went to [place], and then went to [place] and states that she has been traveling [...] in addition to walking as tolerated. Contacted [facility] pharmacy in [place] who states they cannot dispense Saxenda secondary to supply issues. Called [facility] pharmacy, and Saxenda continues to be on backorder until unknown date. Will send to other [facility] pharmacy in [place], but patient will continue to call pharmacies [...] will trial contrave first. Discussed referral for imaging analyst, Patient declines at this time. Follow up [...] Dictation was accomplished with the use of [employer] voice recognition software, prone to medical misidentifications [...] educated on lifestyle modifications. Patient went to [place], and then went to [place] and states that she has been traveling [...] in addition to walking as tolerated. Contacted [facility] pharmacy in [place] who states they cannot dispense Saxenda secondary to supply issues. Called [facility] pharmacy, and Saxenda continues to be on backorder until unknown date. Will send to other [facility] pharmacy in [place], but patient will continue to call pharmacies [...] will trial contrave first. Discussed referral for imaging analyst, Patient declines at this time. Follow up [...] Wart of left hand, refer to dermatology. Dxxm-gpl-pqytdnv regimen not helping # Migraines: Adequate nutrition/hydration. [...] Dictation was accomplished with the use of [employer] voice recognition software, prone to medical misidentifications [...] educated on lifestyle modifications. Patient went to [place], and then went to [place] and states that she has been traveling [...] in addition to walking as tolerated. Contacted [facility] pharmacy in [place] who states they cannot dispense Saxenda secondary to supply issues. Called [facility] pharmacy, and Saxenda continues to be on backorder until unknown date. Will send to other [facility] pharmacy in [place], but patient will continue to call pharmacies [...] will trial contrave first. Discussed referral for imaging analyst, Patient declines at this time. Follow up [...] Wart of left hand, refer to dermatology. Sdgp-xxu-qeeeaww regimen not helping # Migraines: Adequate nutrition/hydration. [...] Dictation was accomplished with the use of [employer] voice recognition software, prone to medical misidentifications [...] educated on lifestyle modifications. Patient went to [place], and then went to [place] and states that she has been traveling [...] in addition to walking as tolerated. Contacted [facility] pharmacy in [place] who states they cannot dispense Saxenda secondary to supply issues. Called [facility] pharmacy, and Saxenda continues to be on backorder until unknown date. Will send to other [facility] pharmacy in [place], but patient will continue to call pharmacies [...] will trial contrave first. Discussed referral for imaging analyst, Patient declines at this time. Follow up [...] Wart of left hand, refer to dermatology. Tumq-rwc-bugymbl regimen not helping # Migraines: Adequate nutrition/hydration. [...] Dictation was accomplished with the use of [employer] voice recognition software, prone to medical misidentifications and grammatical errors. This is unintentional and the practitioner does try to identify and correct these, but some could still be present. Please do not hesitate to contact practitioner for clarification. 12/24/2024 Obesity (BMI 30-39.9) (ICD-10 - E66.9) [...] educated on lifestyle modifications. Patient went to [place], and then went to [place] and states that she has been traveling [...] in addition to walking as tolerated. Contacted [facility] pharmacy in [place] who states they cannot dispense Saxenda secondary to supply issues. Called [facility] pharmacy, and Saxenda continues to be on backorder until unknown date. Will send to other [facility] pharmacy in [place], but patient will continue to call pharmacies [...] will trial contrave first. Discussed referral for imaging analyst, Patient declines at this time. Follow up [...] Dictation was accomplished with the use of [employer] voice recognition software, prone to medical misidentifications [...] educated on lifestyle modifications. Patient went to [place], and then went to [place] and states that she has been traveling [...] in addition to walking as tolerated. Contacted [facility] pharmacy in [place] who states they cannot dispense Saxenda secondary to supply issues. Called [facility] pharmacy, and Saxenda continues to be on backorder until unknown date. Will send to other [facility] pharmacy in [place], but patient will continue to call pharmacies [...] will trial contrave first. Discussed referral for imaging analyst, Patient declines at this time. Follow up [...] Dictation was accomplished with the use of [employer] voice recognition software, prone to medical misidentifications [...] educated on lifestyle modifications. Patient went to [place], and then went to [place] and states that she has been traveling [...] in addition to walking as tolerated. Contacted [facility] pharmacy in [place] who states they cannot dispense Saxenda secondary to supply issues. Called [facility] pharmacy, and Saxenda continues to be on backorder until unknown date. Will send to other [facility] pharmacy in [place], but patient will continue to call pharmacies [...] and red meat. Discussed fish, fish oil, Midnight's, healthy fats. # Right shoulder pain: X [...] Dictation was accomplished with the use of [employer] voice recognition software, prone to medical misidentifications [...] educated on lifestyle modifications. Patient went to [place], and then went to [place] and states that she has been traveling [...] in addition to walking as tolerated. Contacted [facility] pharmacy in [place] who states they cannot dispense Saxenda secondary to supply issues. Called [facility] pharmacy, and Saxenda continues to be on backorder until unknown date. Will send to other [facility] pharmacy in [place], but patient will continue to call pharmacies [...] and red meat. Discussed fish, fish oil, Midnight's, healthy fats. # Right shoulder pain: X [...] Dictation was accomplished with the use of [employer] voice recognition software, prone to medical misidentifications [...] educated on lifestyle modifications. Patient went to [place], and then went to [place] and states that she has been traveling [...] in addition to walking as tolerated. Contacted [facility] pharmacy in [place] who states they cannot dispense Saxenda secondary to supply issues. Called [facility] pharmacy, and Saxenda continues to be on backorder until unknown date. Will send to other [facility] pharmacy in [place], but patient will continue to call pharmacies [...] and red meat. Discussed fish, fish oil, Midnight's, healthy fats. # Right shoulder pain: X [...] Dictation was accomplished with the use of [employer] voice recognition software, prone to medical misidentifications [...] educated on lifestyle modifications. Patient went to [place], and then went to [place] and states that she has been traveling [...] in addition to walking as tolerated. Contacted [facility] pharmacy in [place] who states they cannot dispense Saxenda secondary to supply issues. Called [facility] pharmacy, and Saxenda continues to be on backorder until unknown date. Will send to other [facility] pharmacy in [place], but patient will continue to call pharmacies [...] will trial contrave first. Discussed referral for imaging analyst, Patient declines at this time. Follow up [...] questions/concerns arise. Case discussed with collaborating physician Riely Quintero who reviewed the assessment and plan. Chart, medications, labs, vital signs reviewed. Dictation was accomplished with the use of [employer] voice recognition software, prone to medical misidentifications [...] educated on lifestyle modifications. Patient went to [place], and then went to [place] and states that she has been traveling [...] about possibly switching to GLP-1 such as [employer], but having difficulty with supply at this [...] in addition to walking as tolerated. Contacted [facility] pharmacy in [place] who states they cannot dispense Saxenda secondary to supply issues. Called [facility] pharmacy, and Saxenda continues to be on backorder until unknown date. Will send to other [facility] pharmacy in [place], but patient will continue to call pharmacies [...] will trial contrave first. Discussed referral for imaging analyst, Patient declines at this time. Follow up [...] Wart of left hand, refer to dermatology. Xuah-qqc-xnbkjlv regimen not helping # Migraines: Adequate nutrition/hydration. [...] Dictation was accomplished with the use of [employer] voice recognition software, prone to medical misidentifications [...] educated on lifestyle modifications. Patient went to [place], and then went to [place] and states that she has been traveling [...] in addition to walking as tolerated. Contacted [facility] pharmacy in [place] who states they cannot dispense Saxenda secondary to supply issues. Called [facility] pharmacy, and Saxenda continues to be on backorder until unknown date. Will send to other [facility] pharmacy in [place], but patient will continue to call pharmacies [...] will trial contrave first. Discussed referral for imaging analyst, Patient declines at this time. Follow up [...] Wart of left hand, refer to dermatology. Eapx-moh-lfidkvh regimen not helping # Migraines: Adequate nutrition/hydration. [...] Dictation was accomplished with the use of [employer] voice recognition software, prone to medical misidentifications [...] educated on lifestyle modifications. Patient went to [place], and then went to [place] and states that she has been traveling [...] in addition to walking as tolerated. Contacted [facility] pharmacy in [place] who states they cannot dispense Saxenda secondary to supply issues. Called [facility] pharmacy, and Saxenda continues to be on backorder until unknown date. Will send to other [facility] pharmacy in [place], but patient will continue to call pharmacies [...] will trial contrave first. Discussed referral for imaging analyst, Patient declines at this time. Follow up [...] Dictation was accomplished with the use of [employer] voice recognition software, prone to medical misidentifications [...] educated on lifestyle modifications. Patient went to [place], and then went to [place] and states that she has been traveling [...] in addition to walking as tolerated. Contacted [facility] pharmacy in [place] who states they cannot dispense Saxenda secondary to supply issues. Called [facility] pharmacy, and Saxenda continues to be on backorder until unknown date. Will send to other [facility] pharmacy in [place], but patient will continue to call pharmacies [...] will trial contrave first. Discussed referral for imaging analyst, Patient declines at this time. Follow up [...] Dictation was accomplished with the use of [employer] voice recognition software, prone to medical misidentifications [...] educated on lifestyle modifications. Patient went to [place], and then went to [place] and states that she has been traveling [...] in addition to walking as tolerated. Contacted [facility] pharmacy in [place] who states they cannot dispense Saxenda secondary to supply issues. Called [facility] pharmacy, and Saxenda continues to be on backorder until unknown date. Will send to other [facility] pharmacy in [place], but patient will continue to call pharmacies [...] Dictation was accomplished with the use of [employer] voice recognition software, prone to medical misidentifications [...] educated on lifestyle modifications. Patient went to [place], and then went to [place] and states that she has been traveling [...] in addition to walking as tolerated. Contacted [facility] pharmacy in [place] who states they cannot dispense Saxenda secondary to supply issues. Called [facility] pharmacy, and Saxenda continues to be on backorder until unknown date. Will send to other [facility] pharmacy in [place], but patient will continue to call pharmacies [...] Hair loss: Ordering CBC, iron, TIBC, ferritin, AHBAY, CRP, estrogen, progesterone, testosterone, DHEA, TSH, T3, [...] Dictation was accomplished with the use of [employer] voice recognition software, prone to medical misidentifications [...] educated on lifestyle modifications. Patient went to [place], and then went to [place] and states that she has been traveling [...] in addition to walking as tolerated. Contacted [facility] pharmacy in [place] who states they cannot dispense Saxenda secondary to supply issues. Called [facility] pharmacy, and Saxenda continues to be on backorder until unknown date. Will send to other [facility] pharmacy in [place], but patient will continue to call pharmacies [...] will trial contrave first. Discussed referral for imaging analyst, Patient declines at this time. Follow up [...] Dictation was accomplished with the use of [employer] voice recognition software, prone to medical misidentifications [...] educated on lifestyle modifications. Patient went to [place], and then went to [place] and states that she has been traveling [...] in addition to walking as tolerated. Contacted [facility] pharmacy in [place] who states they cannot dispense Saxenda secondary to supply issues. Called [facility] pharmacy, and Saxenda continues to be on backorder until unknown date. Will send to other [facility] pharmacy in [place], but patient will continue to call pharmacies [...] will trial contrave first. Discussed referral for imaging analyst, Patient declines at this time. Follow up [...] Dictation was accomplished with the use of [employer] voice recognition software, prone to medical misidentifications [...] educated on lifestyle modifications. Patient went to [place], and then went to [place] and states that she has been traveling [...] in addition to walking as tolerated. Contacted [facility] pharmacy in [place] who states they cannot dispense Saxenda secondary to supply issues. Called [facility] pharmacy, and Saxenda continues to be on backorder until unknown date. Will send to other [facility] pharmacy in [place], but patient will continue to call pharmacies [...] will trial contrave first. Discussed referral for imaging analyst, Patient declines at this time. Follow up [...] Wart of left hand, refer to dermatology. Amgn-rhd-ylsdzxc regimen not helping # Migraines: Adequate nutrition/hydration. [...] Dictation was accomplished with the use of [employer] voice recognition software, prone to medical misidentifications [...] educated on lifestyle modifications. Patient went to [place], and then went to [place] and states that she has been traveling [...] in addition to walking as tolerated. Contacted [facility] pharmacy in [place] who states they cannot dispense Saxenda secondary to supply issues. Called [facility] pharmacy, and Saxenda continues to be on backorder until unknown date. Will send to other [facility] pharmacy in [place], but patient will continue to call pharmacies [...] will trial contrave first. Discussed referral for imaging analyst, Patient declines at this time. Follow up [...] Wart of left hand, refer to dermatology. Jfts-yvg-vbxuwko regimen not helping # Migraines: Adequate nutrition/hydration. [...] Dictation was accomplished with the use of [employer] voice recognition software, prone to medical misidentifications [...] educated on lifestyle modifications. Patient went to [place], and then went to [place] and states that she has been traveling [...] in addition to walking as tolerated. Contacted [facility] pharmacy in [place] who states they cannot dispense Saxenda secondary to supply issues. Called [facility] pharmacy, and Saxenda continues to be on backorder until unknown date. Will send to other [facility] pharmacy in [place], but patient will continue to call pharmacies [...] will trial contrave first. Discussed referral for imaging analyst, Patient declines at this time. Follow up [...] recieved Vitamin B12 in office.Patient taking NutrAFUL [facility] improvment. Consider dermatology referral. No further workup [...] Dictation was accomplished with the use of [employer] voice recognition software, prone to medical misidentifications [...] educated on lifestyle modifications. Patient went to [place], and then went to [place] and states that she has been traveling [...] in addition to walking as tolerated. Contacted [facility] pharmacy in [place] who states they cannot dispense Saxenda secondary to supply issues. Called [facility] pharmacy, and Saxenda continues to be on backorder until unknown date. Will send to other [facility] pharmacy in [place], but patient will continue to call pharmacies [...] and red meat. Discussed fish, fish oil, Midnight's, healthy fats. # Right shoulder pain: X [...] Dictation was accomplished with the use of [employer] voice recognition software, prone to medical misidentifications [...] educated on lifestyle modifications. Patient went to [place], and then went to [place] and states that she has been traveling [...] in addition to walking as tolerated. Contacted [facility] pharmacy in [place] who states they cannot dispense Saxenda secondary to supply issues. Called [facility] pharmacy, and Saxenda continues to be on backorder until unknown date. Will send to other [facility] pharmacy in [place], but patient will continue to call pharmacies [...] and red meat. Discussed fish, fish oil, Midnight's, healthy fats. # Right shoulder pain: X [...] Dictation was accomplished with the use of [employer] voice recognition software, prone to medical misidentifications [...] educated on lifestyle modifications. Patient went to [place], and then went to [place] and states that she has been traveling [...] in addition to walking as tolerated. Contacted [facility] pharmacy in [place] who states they cannot dispense Saxenda secondary to supply issues. Called [facility] pharmacy, and Saxenda continues to be on backorder until unknown date. Will send to other [facility] pharmacy in [place], but patient will continue to call pharmacies [...] will trial contrave first. Discussed referral for imaging analyst, Patient declines at this time. Follow up [...] Dictation was accomplished with the use of [employer] voice recognition software, prone to medical misidentifications [...] educated on lifestyle modifications. Patient went to [place], and then went to [place] and states that she has been traveling [...] in addition to walking as tolerated. Contacted [facility] pharmacy in [place] who states they cannot dispense Saxenda secondary to supply issues. Called [facility] pharmacy, and Saxenda continues to be on backorder until unknown date. Will send to other [facility] pharmacy in [place], but patient will continue to call pharmacies [...] will trial contrave first. Discussed referral for imaging analyst, Patient declines at this time. Follow up [...] Wart of left hand, refer to dermatology. Ntno-haf-inasfot regimen not helping # Migraines: Adequate nutrition/hydration. [...] Dictation was accomplished with the use of [employer] voice recognition software, prone to medical misidentifications [...] educated on lifestyle modifications. Patient went to [place], and then went to [place] and states that she has been traveling [...] in addition to walking as tolerated. Contacted [facility] pharmacy in [place] who states they cannot dispense Saxenda secondary to supply issues. Called [facility] pharmacy, and Saxenda continues to be on backorder until unknown date. Will send to other [facility] pharmacy in [place], but patient will continue to call pharmacies [...] will trial contrave first. Discussed referral for imaging analyst, Patient declines at this time. Follow up [...] Wart of left hand, refer to dermatology. Rtpj-ysn-iplnhau regimen not helping # Migraines: Adequate nutrition/hydration. [...] Dictation was accomplished with the use of [employer] voice recognition software, prone to medical misidentifications [...] educated on lifestyle modifications. Patient went to [place], and then went to [place] and states that she has been traveling [...] in addition to walking as tolerated. Contacted [facility] pharmacy in [place] who states they cannot dispense Saxenda secondary to supply issues. Called [facility] pharmacy, and Saxenda continues to be on backorder until unknown date. Will send to other [facility] pharmacy in [place], but patient will continue to call pharmacies [...] will trial contrave first. Discussed referral for imaging analyst, Patient declines at this time. Follow up [...] Dictation was accomplished with the use of [employer] voice recognition software, prone to medical misidentifications [...] educated on lifestyle modifications. Patient went to [place], and then went to [place] and states that she has been traveling [...] in addition to walking as tolerated. Contacted [facility] pharmacy in [place] who states they cannot dispense Saxenda secondary to supply issues. Called [facility] pharmacy, and Saxenda continues to be on backorder until unknown date. Will send to other [facility] pharmacy in [place], but patient will continue to call pharmacies [...] will trial contrave first. Discussed referral for imaging analyst, Patient declines at this time. Follow up in 4-6 weeks # Hair loss: CBC, iron, TIBC, ferritin, ABHAY, CRP, estrogen, progesterone, testosterone, DHEA, TSH, T3, T4, were WNL, vitamin D was low, pt reports that she is taking vitamin D supplementation, vitamin B12 was low, pt recieved Vitamin B12 in office.Patient taking [facility] impro[facility]ment. Consider dermatology referral. # Migraines: Adequate [...] Dictation was accomplished with the use of [employer] voice recognition software, prone to medical misidentifications [...] educated on lifestyle modifications. Patient went to [place], and then went to [place] and states that she has been traveling [...] in addition to walking as tolerated. Contacted [facility] pharmacy in [place] who states they cannot dispense Saxenda secondary to supply issues. Called [facility] pharmacy, and Saxenda continues to be on backorder until unknown date. Will send to other [facility] pharmacy in [place], but patient will continue to call pharmacies [...] Dictation was accomplished with the use of [employer] voice recognition software, prone to medical misidentifications [...] educated on lifestyle modifications. Patient went to [place], and then went to [place] and states that she has been traveling [...] in addition to walking as tolerated. Contacted [facility] pharmacy in [place] who states they cannot dispense Saxenda secondary to supply issues. Called [facility] pharmacy, and Saxenda continues to be on backorder until unknown date. Will send to other [facility] pharmacy in [place], but patient will continue to call pharmacies [...] will trial contrave first. Discussed referral for imaging analyst, Patient declines at this time. Follow up [...] Dictation was accomplished with the use of [employer] voice recognition software, prone to medical misidentifications [...] educated on lifestyle modifications. Patient went to [place], and then went to [place] and states that she has been traveling [...] in addition to walking as tolerated. Contacted [facility] pharmacy in [place] who states they cannot dispense Saxenda secondary to supply issues. Called [facility] pharmacy, and Saxenda continues to be on backorder until unknown date. Will send to other [facility] pharmacy in [place], but patient will continue to call pharmacies [...] Dictation was accomplished with the use of [employer] voice recognition software, prone to medical misidentifications [...] educated on lifestyle modifications. Patient went to [place], and then went to [place] and states that she has been traveling [...] in addition to walking as tolerated. Contacted [facility] pharmacy in [place] who states they cannot dispense Saxenda secondary to supply issues. Called [facility] pharmacy, and Saxenda continues to be on backorder until unknown date. Will send to other [facility] pharmacy in [place], but patient will continue to call pharmacies [...] will trial contrave first. Discussed referral for imaging analyst, Patient declines at this time. Follow up [...] Dictation was accomplished with the use of [employer] voice recognition software, prone to medical misidentifications [...] educated on lifestyle modifications. Patient went to [place], and then went to [place] and states that she has been traveling [...] in addition to walking as tolerated. Contacted [facility] pharmacy in [place] who states they cannot dispense Saxenda secondary to supply issues. Called [facility] pharmacy, and Saxenda continues to be on backorder until unknown date. Will send to other [facility] pharmacy in [place], but patient will continue to call pharmacies [...] will trial contrave first. Discussed referral for imaging analyst, Patient declines at this time. Follow up [...] Wart of left hand, refer to dermatology. Uagy-rxz-njyvrek regimen not helping # Migraines: Adequate nutrition/hydration. [...] Dictation was accomplished with the use of [employer] voice recognition software, prone to medical misidentifications [...] educated on lifestyle modifications. Patient went to [place], and then went to [place] and states that she has been traveling [...] in addition to walking as tolerated. Contacted [facility] pharmacy in [place] who states they cannot dispense Saxenda secondary to supply issues. Called [facility] pharmacy, and Saxenda continues to be on backorder until unknown date. Will send to other [facility] pharmacy in [place], but patient will continue to call pharmacies [...] will trial contrave first. Discussed referral for imaging analyst, Patient declines at this time. Follow up [...] Wart of left hand, refer to dermatology. Ivce-tzs-lepstev regimen not helping # Migraines: Adequate nutrition/hydration. [...] Dictation was accomplished with the use of [employer] voice recognition software, prone to medical misidentifications [...] educated on lifestyle modifications. Patient went to [place], and then went to [place] and states that she has been traveling [...] in addition to walking as tolerated. Contacted [facility] pharmacy in [place] who states they cannot dispense Saxenda secondary to supply issues. Called [facility] pharmacy, and Saxenda continues to be on backorder until unknown date. Will send to other [facility] pharmacy in [place], but patient will continue to call pharmacies [...] will trial contrave first. Discussed referral for imaging analyst, Patient declines at this time. Follow up [...] Dictation was accomplished with the use of [employer] voice recognition software, prone to medical misidentifications [...] educated on lifestyle modifications. Patient went to [place], and then went to [place] and states that she has been traveling [...] in addition to walking as tolerated. Contacted [facility] pharmacy in [place] who states they cannot dispense Saxenda secondary to supply issues. Called [facility] pharmacy, and Abhishek continues to be on backorder until unknown date. Will send to other [facility] pharmacy in [place], but patient will continue to call pharmacies [...] and red meat. Discussed fish, fish oil, Midnight's, healthy fats. # Right shoulder pain: X [...] Dictation was accomplished with the use of [employer] voice recognition software, prone to medical misidentifications [...] educated on lifestyle modifications. Patient went to [place], and then went to [place] and states that she has been traveling [...] in addition to walking as tolerated. Contacted [facility] pharmacy in [place] who states they cannot dispense Saxenda secondary to supply issues. Called [facility] pharmacy, and Saxenda continues to be on backorder until unknown date. Will send to other [facility] pharmacy in [place], but patient will continue to call pharmacies [...] and red meat. Discussed fish, fish oil, Midnight's, healthy fats. # Right shoulder pain: X [...] Dictation was accomplished with the use of [employer] voice recognition software, prone to medical misidentifications [...] educated on lifestyle modifications. Patient went to [place], and then went to [place] and states that she has been traveling [...] in addition to walking as tolerated. Contacted [facility] pharmacy in [place] who states they cannot dispense Saxenda secondary to supply issues. Called [facility] pharmacy, and Saxenda continues to be on backorder until unknown date. Will send to other [facility] pharmacy in [place], but patient will continue to call pharmacies [...] will trial contrave first. Discussed referral for imaging analyst, Patient declines at this time. Follow up [...] Dictation was accomplished with the use of [employer] voice recognition software, prone to medical misidentifications [...] educated on lifestyle modifications. Patient went to [place], and then went to [place] and states that she has been traveling [...] in addition to walking as tolerated. Contacted [facility] pharmacy in [place] who states they cannot dispense Saxenda secondary to supply issues. Called [facility] pharmacy, and Saxenda continues to be on backorder until unknown date. Will send to other [facility] pharmacy in [place], but patient will continue to call pharmacies [...] will trial contrave first. Discussed referral for imaging analyst, Patient declines at this time. Follow up [...] Wart of left hand, refer to dermatology. Ksrz-crh-kfgrlyn regimen not helping # Migraines: Adequate nutrition/hydration. [...] Dictation was accomplished with the use of [employer] voice recognition software, prone to medical misidentifications [...] educated on lifestyle modifications. Patient went to [place], and then went to [place] and states that she has been traveling [...] in addition to walking as tolerated. Contacted [facility] pharmacy in [place] who states they cannot dispense Saxenda secondary to supply issues. Called [facility] pharmacy, and Saxenda continues to be on backorder until unknown date. Will send to other [facility] pharmacy in [place], but patient will continue to call pharmacies [...] will trial contrave first. Discussed referral for imaging analyst, Patient declines at this time. Follow up [...] Wart of left hand, refer to dermatology. Imyb-isr-pbugoiw regimen not helping # Migraines: Adequate nutrition/hydration. [...] Dictation was accomplished with the use of [employer] voice recognition software, prone to medical misidentifications [...] educated on lifestyle modifications. Patient went to [place], and then went to [place] and states that she has been traveling [...] in addition to walking as tolerated. Contacted [facility] pharmacy in [place] who states they cannot dispense Saxenda secondary to supply issues. Called [facility] pharmacy, and Saxenda continues to be on backorder until unknown date. Will send to other [facility] pharmacy in [place], but patient will continue to call pharmacies [...] will trial contrave first. Discussed referral for imaging analyst, Patient declines at this time. Follow up [...] Dictation was accomplished with the use of [employer] voice recognition software, prone to medical misidentifications [...] educated on lifestyle modifications. Patient went to [place], and then went to [place] and states that she has been traveling [...] in addition to walking as tolerated. Contacted [facility] pharmacy in [place] who states they cannot dispense Saxenda secondary to supply issues. Called [facility] pharmacy, and Saxenda continues to be on backorder until unknown date. Will send to other [facility] pharmacy in [place], but patient will continue to call pharmacies [...] Dictation was accomplished with the use of [employer] voice recognition software, prone to medical misidentifications [...] educated on lifestyle modifications. Patient went to [place], and then went to [place] and states that she has been traveling [...] in addition to walking as tolerated. Contacted [facility] pharmacy in [place] who states they cannot dispense Saxenda secondary to supply issues. Called [facility] pharmacy, and Saxenda continues to be on backorder until unknown date. Will send to other [facility] pharmacy in [place], but patient will continue to call pharmacies [...] will trial contrave first. Discussed referral for imaging analyst, Patient declines at this time. Follow up [...] Dictation was accomplished with the use of [employer] voice recognition software, prone to medical misidentifications [...] educated on lifestyle modifications. Patient went to [place], and then went to [place] and states that she has been traveling [...] in addition to walking as tolerated. Contacted [facility] pharmacy in [place] who states they cannot dispense Saxenda secondary to supply issues. Called [facility] pharmacy, and Saxenda continues to be on backorder until unknown date. Will send to other [facility] pharmacy in [place], but patient will continue to call pharmacies [...] will trial contrave first. Discussed referral for imaging analyst, Patient declines at this time. Follow up [...] Dictation was accomplished with the use of [employer] voice recognition software, prone to medical misidentifications [...] educated on lifestyle modifications. Patient went to [place], and then went to [place] and states that she has been traveling [...] in addition to walking as tolerated. Contacted [facility] pharmacy in [place] who states they cannot dispense Saxenda secondary to supply issues. Called [facility] pharmacy, and Saxenda continues to be on backorder until unknown date. Will send to other [facility] pharmacy in [place], but patient will continue to call pharmacies [...] Dictation was accomplished with the use of [employer] voice recognition software, prone to medical misidentifications [...] educated on lifestyle modifications. Patient went to [place], and then went to [place] and states that she has been traveling [...] in addition to walking as tolerated. Contacted [facility] pharmacy in [place] who states they cannot dispense Saxenda secondary to supply issues. Called [facility] pharmacy, and Saxenda continues to be on backorder until unknown date. Will send to other [facility] pharmacy in [place], but patient will continue to call pharmacies [...] will trial contrave first. Discussed referral for imaging analyst, Patient declines at this time. Follow up [...] Dictation was accomplished with the use of [employer] voice recognition software, prone to medical misidentifications [...] educated on lifestyle modifications. Patient went to [place], and then went to [place] and states that she has been traveling [...] in addition to walking as tolerated. Contacted [facility] pharmacy in [place] who states they cannot dispense Saxenda secondary to supply issues. Called [facility] pharmacy, and Saxenda continues to be on backorder until unknown date. Will send to other [facility] pharmacy in [place], but patient will continue to call pharmacies [...] will trial contrave first. Discussed referral for imaging analyst, Patient declines at this time. Follow up [...] Wart of left hand, refer to dermatology. Wxqu-xpv-zwnrwld regimen not helping # Migraines: Adequate nutrition/hydration. [...] Dictation was accomplished with the use of [employer] voice recognition software, prone to medical misidentifications [...] educated on lifestyle modifications. Patient went to [place], and then went to [place] and states that she has been traveling [...] in addition to walking as tolerated. Contacted [facility] pharmacy in [place] who states they cannot dispense Saxenda secondary to supply issues. Called [facility] pharmacy, and Saxenda continues to be on backorder until unknown date. Will send to other [facility] pharmacy in [place], but patient will continue to call pharmacies [...] will trial contrave first. Discussed referral for imaging analyst, Patient declines at this time. Follow up [...] Wart of left hand, refer to dermatology. Htxy-xne-vmeqoev regimen not helping # Migraines: Adequate nutrition/hydration. [...] Dictation was accomplished with the use of [employer] voice recognition software, prone to medical misidentifications [...] educated on lifestyle modifications. Patient went to [place], and then went to [place] and states that she has been traveling [...] in addition to walking as tolerated. Contacted [facility] pharmacy in [place] who states they cannot dispense Saxenda secondary to supply issues. Called [facility] pharmacy, and Saxenda continues to be on backorder until unknown date. Will send to other [facility] pharmacy in [place], but patient will continue to call pharmacies [...] will trial contrave first. Discussed referral for imaging analyst, Patient declines at this time. Follow up [...] Dictation was accomplished with the use of [employer] voice recognition software, prone to medical misidentifications [...] educated on lifestyle modifications. Patient went to [place], and then went to [place] and states that she has been traveling [...] in addition to walking as tolerated. Contacted [facility] pharmacy in [place] who states they cannot dispense Saxenda secondary to supply issues. Called [facility] pharmacy, and Saxenda continues to be on backorder until unknown date. Will send to other [facility] pharmacy in [place], but patient will continue to call pharmacies [...] and red meat. Discussed fish, fish oil, Midnight's, healthy fats. # Right shoulder pain: X [...] Dictation was accomplished with the use of [employer] voice recognition software, prone to medical misidentifications [...] educated on lifestyle modifications. Patient went to [place], and then went to [place] and states that she has been traveling [...] in addition to walking as tolerated. Contacted [facility] pharmacy in [place] who states they cannot dispense Saxenda secondary to supply issues. Called [facility] pharmacy, and Saxenda continues to be on backorder until unknown date. Will send to other [facility] pharmacy in [place], but patient will continue to call pharmacies [...] will trial contrave first. Discussed referral for imaging analyst, Patient declines at this time. Follow up [...] Dictation was accomplished with the use of [employer] voice recognition software, prone to medical misidentifications [...] educated on lifestyle modifications. Patient went to [place], and then went to [place] and states that she has been traveling [...] in addition to walking as tolerated. Contacted [facility] pharmacy in [place] who states they cannot dispense Saxenda secondary to supply issues. Called [facility] pharmacy, and Saxenda continues to be on backorder until unknown date. Will send to other [facility] pharmacy in [place], but patient will continue to call pharmacies [...] will trial contrave first. Discussed referral for imaging analyst, Patient declines at this time. Follow up [...] Wart of left hand, refer to dermatology. Wdqa-cdq-ghcqydi regimen not helping # Migraines: Adequate nutrition/hydration. [...] Dictation was accomplished with the use of [employer] voice recognition software, prone to medical misidentifications [...] educated on lifestyle modifications. Patient went to [place], and then went to [place] and states that she has been traveling [...] in addition to walking as tolerated. Contacted [facility] pharmacy in [place] who states they cannot dispense Saxenda secondary to supply issues. Called [facility] pharmacy, and Saxenda continues to be on backorder until unknown date. Will send to other [facility] pharmacy in [place], but patient will continue to call pharmacies [...] will trial contrave first. Discussed referral for imaging analyst, Patient declines at this time. Follow up [...] Wart of left hand, refer to dermatology. Thos-lbc-waqtvjm regimen not helping # Migraines: Adequate nutrition/hydration. [...] Dictation was accomplished with the use of [employer] voice recognition software, prone to medical misidentifications [...] educated on lifestyle modifications. Patient went to [place], and then went to [place] and states that she has been traveling [...] in addition to walking as tolerated. Contacted [facility] pharmacy in [place] who states they cannot dispense Saxenda secondary to supply issues. Called [facility] pharmacy, and Saxenda continues to be on backorder until unknown date. Will send to other [facility] pharmacy in [place], but patient will continue to call pharmacies [...] will trial contrave first. Discussed referral for imaging analyst, Patient declines at this time. Follow up [...] Dictation was accomplished with the use of [employer] voice recognition software, prone to medical misidentifications [...] educated on lifestyle modifications. Patient went to [place], and then went to [place] and states that she has been traveling [...] in addition to walking as tolerated. Contacted [facility] pharmacy in [place] who states they cannot dispense Saxenda secondary to supply issues. Called [facility] pharmacy, and Saxenda continues to be on backorder until unknown date. Will send to other [facility] pharmacy in [place], but patient will continue to call pharmacies [...] Dictation was accomplished with the use of [employer] voice recognition software, prone to medical misidentifications [...] educated on lifestyle modifications. Patient went to [place], and then went to [place] and states that she has been traveling [...] in addition to walking as tolerated. Contacted [facility] pharmacy in [place] who states they cannot dispense Saxenda secondary to supply issues. Called [facility] pharmacy, and Saxenda continues to be on backorder until unknown date. Will send to other [facility] pharmacy in [place], but patient will continue to call pharmacies [...] will trial contrave first. Discussed referral for imaging analyst, Patient declines at this time. Follow up [...] Dictation was accomplished with the use of [employer] voice recognition software, prone to medical misidentifications [...] educated on lifestyle modifications. Patient went to [place], and then went to [place] and states that she has been traveling [...] in addition to walking as tolerated. Contacted [facility] pharmacy in [place] who states they cannot dispense Saxenda secondary to supply issues. Called [facility] specialty pharmacy, and Saxenda continues to be on backorder until unknown date. Will send to other [facility] pharmacy in [place], but patient will continue to call pharmacies [...] will trial contrave first. Discussed referral for imaging analyst, Patient declines at this time. Follow up [...] Wart of left hand, refer to dermatology. Brfi-[id number] regimen not helping # Migraines: Adequate nutrition/hydration. [...] Dictation was accomplished with the use of [employer] voice recognition software, prone to medical misidentifications [...] BARCENAS, 08/10/2025 03:00:00 PM, [address], [place], [id number], Insurance Providers Payer Name Payer Address Payer Phone Subscriber Number Group Number Insured Name Patient Relationship to Insured Coverage Start Date Coverage End Date [facility] [address] [place] [address] [id number] Glenis Menchaca Self - patient is the insured Medications Administered Medication Instructions Date of Administration Dosage Notes MICC B12 INJECTION 10/31/2022 lot # [id number] MICC B12 INJECTION 12/05/2022 MICC B12 INJECTION 01/09/2023 lot [id number] MICC B12 INJECTION 11/17/2024 1 mL Semaglutide 04/12/2023 0.25 mg sema 0.25mg Semaglutide 04/19/2023 0.25 mg LRQ SQ Semaglutide 04/27/2023 0.25 sema 0.25mg Semaglutide 05/04/2023 lot#[id number] 0.25mg Semaglutide 05/11/2023 0.25 mg LRQ SQ Semaglutide 05/18/2023 0.5 mg LRQ SQ Semaglutide 05/24/2023 0.5 sema 0.5mg Semaglutide 05/31/2023 lot#[id number] 0.5mg Semaglutide 06/05/2023 0.5 mg LRQ SQ Semaglutide 06/07/2023 0.5 Semaglutide 06/14/2023 0.5 mg LRQ SQ Semaglutide 06/27/2023 lot#[id number] 0.5mg Semaglutide 07/05/2023 0.5 mg LRQ SQ [...]
--- OUTSIDE RECORDS SUMMARY | 2025-06-17 19:09 | XMS_ITS | Clinical Summary ---
Author Organization [facility] Address [address] [place] [address] Care Team Providers Care Hose Inspector Name Role Phone Unavailable Primary Care Provider [...]
[2025-06-22 08:49] LABS: DNAds, Crithidia Antibody Negative (Negative)
[2025-06-22 21:49] LABS: Anti Nuclear Antibody Pattern Nuclear, Speckled; Anti Nuclear Antibody Screen POSITIVE (NEGATIVE); Anti Nuclear Antibody Titer 1:40 titer
== END 2025-06-17 16:41 | disposition home or self-care (01) ==
LOC: HO.LAB 16:40
PROVIDERS: PCP Internal Medicine; Visit Provider Nurse Practitioner
DX: Z01.84 Encounter for antibody response examination (principal); R79.82 Elevated C-reactive protein (CRP); R51.9 Headache, unspecified
CPT/HCPCS: 36415; 85652; 86038; 86039; 86141; 86255

== ENCOUNTER 2025-06-18 09:05 | Outpatient (AMB) | payer BC, SELFPAY ==
--- OUTSIDE RECORDS SUMMARY | 2024-12-22 06:15 | XMS_ITS ---
Author Organization [facility] Address [address] [place] [address] Care Team Providers Care Tube Inspector Name Role Phone CARLOS BARCENAS Unavailable [phone] Encounters Encounter Location Date Provider Diagnosis [facility] [address] [place] [address] 12/22/2024 CARLOS BARCENAS Plan Of Treatment Next Appt Details Provider Name:CARLOS BARCENAS, 08/10/2025 03:00:00 PM, [address], [place], [address], Progress Notes * Glenis MENCHACADOB: [birth year] (44 yo F)Acc No.[id number]:12/22/2024 Patient: Nettie Glenis brennan Provider: Josefina BARCENAS PA-C :1980 A ge:44 Y S ex:Female Date:12/22/2024 Address:[address] [place] [address] * Electronic signature of HANNAH BARCENAS PA-C on 06/18/2025 at 09:55 AM EST Sign off status: Pending * Provider: Josefina BARCENAS PA-C Date: 12/22/2024 Generated for Mitchel rojo/Tamir/eTalesmitting on: 1 08/18/2024 09:55 AM EST
--- NOTE | 2025-06-18 09:06 | MHC.OFFVIS ---
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 She told me at the time of her initial visit that headaches began at age 16 or 17 with starting on control shortly thereafter. She had no changes in her headaches for many years except for approximately 1 year ago when she was taken off of her oral control and she began having headaches more regularly. At the time of our last visit, headaches were occurring approximately 5 days per week lasting the majority of the day. Headaches could be severe and awaken her from sleep. Her pain could be generally retro-orbital and occipital and felt as a pounding sensation. Headaches are often unilateral but sometimes bilateral. During the headaches and her pain was intense, she would experience blurry vision. She denied any visual auras. Sumatriptan in the past had caused profound nausea. She was using Excedrin with some improvement in her headaches and she was using Excedrin in total 5 days per week on average. She did have a strong family history of brain aneurysm her grandmother and 5 of her grandmothers sister is at aneurysms. She also has a strong family history of thyroid disease. At the time of her last visit, her exam was reassuring however due to her history we obtained an MRI and MRA, ESR and CRP. We discussed reduction of Excedrin to no more than 3 days per week. She opted for a trial of magnesium 400 mg daily and riboflavin 400 mg daily. We also discussed if there was no benefit from the nutraceuticals she would like to start amitriptyline 10 mg daily. Her MRI and MRA showed no obvious vascular abnormalities and she had no acute or structural brain abnormality relating to her symptoms. I did speak with her about the imaging before this visit and she had reported that her headaches were not any better with magnesium and riboflavin and therefore I did send the prescription for amitriptyline 10 mg. Her ESR and CRP were elevated. I did order an ABHAY and DSD. Her ESR and CRP performed 06/17/2025 remain elevated. ESR is 28 and CRP is 7.5. ABHAY and DSD still pending. She tells me today that she was in [place] for 5 days and had no headaches. Since returning back to [place] she has had return of her headaches. Her pain is left occipital associated with nausea. She does not have temporal tenderness or pain. She does not have any vision changes. Headaches are classic to what she has experienced past. She believes that her primary care provider sent a prescription for naratriptan though she has not yet tried it pharmacy but she does plan to do so. She does still have some concerns about a bony/horn lesion to the top her head that she can feel. We did review imaging today indicates visible on imaging though not commented on in the imaging report. Past medication trials: Sumatripta-nausea Ibuprofen-works to reduce her headaches Excedrin-to reduce her headaches though has had medication overuse with this [facility] Medical History (Updated 05/06/25 @ 12:42 by Tammy Garza CNP) HLD (hyperlipidemia) Migraine Family History (Updated 05/05/25 @ 08:34 by Doris Jarvis CMA) Mother Thyroid disease Father Thyroid disease Review of Systems Const All systems reviewed & are unremarkable except as noted in HPI and below Physical Exam Vital Signs: Last Vital Signs Pulse 86 06/18/25 09:11 Resp 16 06/18/25 09:11 BP 114/78 06/18/25 09:11 Pulse Ox 97 06/18/25 09:11 Oxygen Delivery Method Room Air 06/18/25 09:11 BMI result Body Mass Index 29.2 Const General: cooperative, healthy appearing, comfortable and no acute distress Nutritional Appearance: well nourished Orientation/consciousness: patient oriented x3 Limitations: no limitations HEENT Head: Yes normal to inspection, Yes normocephalic and Yes other (Tenderness to the temporalis muscles bilaterally with palpation) Eyes General: appearance normal, both eyes and all related structures Visual Maguire: normal visual maguire by confrontation Alignment and Position: alignment normal Periorbital: periorbital findings normal Eyelids: Yes eyelids normal Conjunctivae: conjunctivae normal Sclerae: sclerae normal Back/Spine/Pelvis Other: Significant bilateral upper trapezius tightening. No obvious trigger points. Neuro General: patient oriented x3 and deep tendon reflexes 2+ bilaterally Cranial nerves: Yes CN's II-XII intact bilaterally and Yes Facial sensation intact/muscles of mastication intact Cognition (Neuro): normal cognition Gait exam (Neuro): Normal gait present Motor exam (neuro): 5/5 motor strength present throughout and no tremor noted Sensory Exam: double simultaneous stimulation for sensation normal Romberg Test: Negative Pupils: Normal pupillary reactivity/response: bilateral Psych Appearance: grossly normal Mental Status: mental status grossly normal Speech and movement: Normal speech and movement present and Clear speech present Affect: normal affect Attitude: cooperative Thought process: Normal thought process present Thought content: Normal thought content present Insight: Good insight present (Psych) Judgement: Good judgement present (Psych) Assessment & Plan Assessment & Plan (1) Worsening headaches: Code(s): R51.9 - Headache, unspecified Category: Medical (2) Chronic migraine without aura without status migrainosus, not intractable: Code(s): G43.709 - Chronic migraine without aura, not intractable, without status migrainosus Category: Medical Plan Glenis is a 44-year-old female patient with a past medical history of obesity and anxiety who was presenting to the clinic for a follow-up visit. Headaches have been relatively the same since our last visit though she had a 5 day resolution in headaches while on vacation in [place] recently. Now that she is back home has had return of her headaches. She relates this to job related stress. Magnesium and riboflavin not significantly beneficial and she did opt to start the amitriptyline however has not yet started it. She does plan to start this tonight. Primary care also sent in a prescription for naratriptan however she has not yet started this morbidity pharmacy. Imaging is reassuring aside from a lesion to the bony structure that was not commented on by Radiology. I will reach out to have him comment on this and see if there is any further workup needed. Inflammatory labs are still elevated but we are awaiting on ABHAY and DSD at this time. We will make further decisions this comes back. There was no tenderness to the temporalis muscle today and there for ACS likely especially that her headaches are occipital and without any vision changes. -awaiting for lab work to make decisions whether or not they Rheumatology may be appropriate -start amitriptyline 10 mg at bedtime -start naratriptan as needed -I will reach out to Radiology regarding her MRI and see if they have any further recommendations on the bony lesion observed. -follow up in 1 month or sooner needed Coding Level of Care Code Est Pt Level 3 (88458) Diagnoses Worsening headaches R51.9 Chronic migraine without aura without status migrainosus, not intractable G43.709
[2025-06-18 09:11] VITALS: BP 114/78; PULSE 86; RESP 16; O2SAT 97; BMI 29.2
--- OUTSIDE RECORDS SUMMARY | 2025-06-18 09:55 | XMS_ITS | Clinical Summary ---
Author Organization 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 Name Role Phone Unavailable Primary Care Provider [...] Procedure Name Priority Date/Time Associated Diagnosis Comments [facility] SCREENING DIGITAL Routine 02/20/2024 4:50 PM EDT Encounter for screening mammogram for malignant neoplasm of breast from Last 3 Months or Most Recently Relevant to Health Maintenance Results * [facility] SCREENING DIGITAL (02/20/2024 4:50 PM EDT) Anatomical Region Laterality Modality Mammography 02/20/2024 10:5 7 AM EDT Narrative 02/20/2024 4:50 PM EDT [facility] Diagnostic Imaging Department [address] [place] [address] Patient: GLENIS MENCHACA./Age/Sex: 1980 - 43 - F Unit#: [id number] [facility]Ordering Site: [facility] Ordering Physician: HILL KERNS MD [facility] Screening Digital - 02/20/24 - 1121 Report Status:Signed EXAM: [facility] Screening Digital EXAM DATE AND TIME: 02/20/2024 11:31 AM HISTORY: Screening. Left breast biopsy in 2020, pathology benign. Family history of breast carcinoma including 2 paternal aunts and 2 maternal second cousins. COMPARISON: 02/14/23, 03/02/22, 01/17/21 TECHNIQUE: Bilateral digital breast tomosynthesis was performed in the CC and MLO projections. Computer aided detection with [employer] 3D 3.1 was employed. TISSUE DENSITY: c. [...] Procedure Note Sammie Sauer MD - 05/21/2024 [facility] Diagnostic Imaging Department [address] [place] [address] Patient: GLENIS MENCHACA./Age/Sex: 1980 - 43 - F Unit#: [id number] [facility]ing Site[facility] Ordering Physician: HILL KERNS MD [facility] Screening Digital - 02/20/24 - 1121 Report Status:Signed EXAM: [facility] Screening Digital EXAM DATE AND TIME: 02/20/2024 11:31 AM HISTORY: Screening. Left breast biopsy in 2020, pathology benign.Family history of breast carcinoma including 2 paternal aunts and 2 maternalsecond cousins. COMPARISON: 02/14/23, 03/02/22, 01/17/21 TECHNIQUE: Bilateral digital breast tomosynthesis was performed in the CCand MLO projections. Computer aided detection with [employer] 3D 3.1was employed. TISSUE DENSITY: c. The [...] Most Recently Relevant to Health Maintenance Insurance [facility] [place]
--- OUTSIDE RECORDS SUMMARY | 2025-06-18 09:56 | XMS_ITS | Patient Health Record ---
Author Organization [facility] [address] Address [address] [place] [address] Care Team Providers Care Chief Cardiopulmonary Technologist Name Role Phone CARLOS BARCENAS [phone] Allergies Allergen (clinical drug ingredient) Drug/Non Drug [...] 01:37:55 PM Interpretation: Performing Lab:Neeru [facility]/Alberto MckeonMike [id number] Brice Aceves, [id number] Dario Galvez M.D.,PhD Notes/Report: TRAB <1.00 <=2.00 IU/L This test was performed using the TRAb Antibody JEFFREY method which is standardized against the 1st International Standard 90/672 and is reported in International Units (IU/L). The reference range reported was established specifically for this test method. T3, FREE Reviewed date:05/11/2025 04:29:14 PM Interpretation: Performing Lab:[facility]NextPage[address] [place], [place] [address] Bola Fowler Notes/Report: T3, FREE 3.3 2.3-4.2 pg/mL N TSH W/REFLEX TO FT4 Reviewed date:05/11/2025 04:29:14 PM Interpretation: Performing Lab:[facility] HospitalQuest Vm[address]bgi[address] Bola Fowler Notes/Report: TSH W/REFLEX TO FT4 1.31 N Reference Range > or = 20 Years 0.40-4.50 Ranges First trimester 0.26-2.66 Second trimester 0.55-2.73 Third trimester 0.43-2.91 THYROID PEROXIDASE AND THYRO GLOBULIN ANTIBODIES Reviewed date:05/12/2025 12:50:05 PM Interpretation: Performing Lab:NL2, [facility] HospitalPureLiFi Spr[address] [place], [place] [address] Bola Fowler Notes/Report: THYROGLOBULIN ANTIBODIES <1 < or = 1 IU/mL N THYROID PEROXIDASE ANTIBODIES <1 <9 IU/mL N TESTOSTERONE, TOTAL, MS Reviewed date:09/19/2024 07:49:43 AM Interpretation: Performing Lab:LAT[facility] [id number] Brice Aceves, WhkrmeivwIL[address] Dario Galvez M.D.,PhD Notes/Report: FASTING: YES FASTING:YES TESTOSTERONE, TOTAL, MS 9 2-45 ng/dL For additional information, please refer to http://education.Ozura World/faq/ TotalTestosteroneLCMSMSFA Q165 (This link is being provided for informational/ educational purposes only.) This test was developed and its analytical performance characteristics have been determined by [facility] [place]. It has not been cleared or approved by the U.S. Food and Drug Administration. This assay has been validated pursuant to the CLIA regulations and is used for clinical purposes. ESTROGEN, TOTAL, SERUM Reviewed date:09/19/2024 07:49:48 AM Interpretation: Performing Lab:[facility] Center[facility]ala,[address] [address] Alturashector SchmidtZyiqqeldkkKV[address] Ruchi Chau MD,PhD,DEDE Notes/Report: FASTING:YES FASTING: YES ESTROGENS, TOTAL, IA 86 Reference Ranges for Total Estrogen: Follicular Phase: 51-601 Luteal Phase: 87-1194 Postmenopausal: < or = 214 VITAMIN D,25-OH,TOTAL,IA Reviewed date:09/16/2024 08:01:36 AM Interpretation: Performing Lab:[employer], [facility]60mo[address] Mariondacia Rosaline Fowler Notes/Report: FASTING: YES FASTING:YES VITAMIN D,25-OH,TOTAL,IA 21 30-100 ng/mL L Vitamin D Status 25-OH Vitamin D: Deficiency: <20 ng/mL Insufficiency: 20 - 29 ng/mL Optimal: > or = 30 ng/mL For 25-OH Vitamin D testing on patients on D2-supplementation and patients for whom quantitation of D2 and D3 fractions is required, the QuestAssureD(TM) 25-OH VIT D, (D2,D3), LC/MS/MS is recommended: order code 26461 (patients >2yrs). See Note 1 Note 1 For additional information, please refer to http://education.AppTrigger/faq/FFI503 (This link is being provided for informational/ educational purposes only.) VITAMIN B12 Reviewed date:09/18/2024 07:43:06 AM Interpretation: Performing Lab:2, [facility]60mo[address] Marion Rosaline Fowler Notes/Report: FASTING:YES FASTING: YES VITAMIN B12 390 495-2482 pg/mL N COMPREHENSIVE METABOLIC PANE L Reviewed date:09/16/2024 08:01:36 AM Interpretation: Performing Lab:[employer], [facility]60mo[address] Marion Rosaline Fowler Notes/Report: FASTING:YES FASTING: YES GLUCOSE 95 [...] U/L N ALT 13 6-29 U/L N LIPID PANEL, STANDARD Reviewed date:09/16/2024 08:01:36 AM Interpretation: Performing Lab:NL2, [facility]60mo[address] Bola Fowler Notes/Report: FASTING:YES FASTING: YES CHOLESTEROL, TOTAL 240 <200 mg/dL H HDL CHOLESTEROL 64 > OR = 50 mg/dL N TRIGLYCERIDES 126 <150 mg/dL N LDL-CHOLESTEROL 151 H Reference range: <100 Desirable range <100 mg/dL for primary prevention; <70 mg/dL for patients with CHD or diabetic patients with > or = 2 CHD risk factors. LDL-C is now calculated using the Bj-Anatsacia calculation, which is a validated novel method providing better accuracy than the Friedewald equation in the estimation of LDL-C. Bj SS et al. JOSE A. 2013;310(19): 4507-4307 (http://education.BPL Global/faq/FXM363) CHOL/HDLC RATIO 3.8 <5.0 (calc) N NON HDL CHOLESTEROL 176 <130 mg/dL (calc) H For patients with diabetes plus 1 major ASCVD risk factor, treating to a non-HDL-C goal of <100 mg/dL (LDL-C of <70 mg/dL) is considered a therapeutic option. CBC (INCLUDES DIFF/PLT) Reviewed date:09/16/2024 08:01:36 AM Interpretation: Performing Lab:NL2, [facility]60mo[address] Bola Fowler Notes/Report: FASTING:YES FASTING: YES [...] 10.6 7.5-12.5 fL N ABSOLUTE NEUTROPHILS 6197 3659-7327 cells/uL N ABSOLUTE LYMPHOCYTES 6230 120-0189 cells/uL N ABSOLUTE MONOCYTES 405 200-950 cells/uL N ABSOLUTE EOSINOPHILS 81 15-500 cells/uL N ABSOLUTE BASOPHILS 41 0-200 cells/uL N NEUTROPHILS 76.5 N LYMPHOCYTES 17.0 N MONOCYTES 5.0 N EOSINOPHILS 1.0 N BASOPHILS 0.5 N IRON, TIBC AND FERRITIN PANE L Reviewed date:09/16/2024 08:01:36 AM Interpretation: Performing Lab:NL2, [facility]60moRobert [place]ille [address] Bola Fowler Notes/Report: FASTING:YES FASTING: YES IRON, TOTAL 70 40-190 mcg/dL N IRON BINDING CAPACITY 351 250-450 mc g/dL (calc) N % SATURATION 20 16-45 % (calc) N FERRITIN 37 16-232 ng/mL N ABHAY SCREEN, IFA, W/REFL TITE R AND PATTERN Reviewed date:09/18/2024 04:03:26 PM Interpretation: Performing Lab:NL2, [facility]60mo[address] Bola Fowler Notes/Report: FASTING:YES FASTING: YES [...] Negative International Consensus on ABHAY Patterns (https://doi.org/10.1515/ rpfm-7411-2543) For additional information, please refer to http://[employer]AppTrigger/faq/FRY040 (This link is being provided for informational/ educational purposes only.) HS CRP Reviewed date:09/16/2024 08:01:36 AM Interpretation: Performing Lab:NLPact [facility], [facility]60mo[address] Bola Fowler Notes/Report: FASTING:YES FASTING: YES [...] for Disease Control and Prevention and the [place] [employer]. Circulation 2003; 107(3): 499-511. DHEA SULFATE Reviewed date:09/16/2024 08:01:36 AM Interpretation: Performing Lab:NLPact [facility], [facility]60mo[address] Bola Fowler Notes/Report: FASTING:YES FASTING: YES DHEA SULFATE 48 15-205 mcg/dL N T4, FREE Reviewed date:09/16/2024 08:01:36 AM Interpretation: Performing Lab:NL2, [facility]60mo[address] Bola Fowler Notes/Report: FASTING:YES FASTING: YES T4, FREE 1.1 0.8-1.8 ng/dL N TSH Reviewed date:09/16/2024 08:01:36 AM Interpretation: Performing Lab:NL2, [facility]60mo[address] Mariondacia Rosaline Fowler Notes/Report: FASTING:YES FASTING: YES TSH 2.16 N Reference Range > or = 20 Years 0.40-4.50 Ranges First trimester 0.26-2.66 Second trimester 0.55-2.73 Third trimester 0.43-2.91 T3, FREE Reviewed date:09/16/2024 08:01:36 AM Interpretation: Performing Lab:NL2, [facility]60mo[address] Mariondacia Rosaline Fowler Notes/Report: FASTING:YES FASTING: YES T3, FREE 3.3 2.3-4.2 pg/mL N Reason For Referral Reason evaluate & treat m ay benefit from cortisone injection Diagnosis 1 Tendinopathy (M67.90 ) Diagnosis 2 Degenerative disc di sease, thoracic (M51.34) [facility] Referring Provider First Name CARLOS Referring Provider Last Name SWAPNA Referring Provider Speciality Internal M edicine Referred Provider Specialty Orthopedic S urgery General Notes Zara Serrano 12/01 03:18:54 PM > form filled out and faxed over chilango Hanson.[phone], [phone] Clinical Notes Halie Mc 2024 09:41:59 AM >Scheduled 01/01/25 at 145PM Eliane Brown in [place]. Referral Priority Routine Reason Migraines Diagnosis 1 Episodic migraine (G 43.909) Referral Organization [facility] KELLY CABALLERO Referring Provider First Name CARLOS Referring Provider Last Name SWAPNA Referring Provider Speciality Internal M edicine Referred Provider Specialty Neurology General Notes Please refer to [facility], [address] [place] [address], [address], [place] [address], [phone], [phone] Clinical Notes Graciela Aguilera 07/2025 10:15:09 AM > pt requesting a call once referral sent., Kemar Horvath 04/23/2025 03:18:56 PM > I called pt, she was booked on may 05 Referral Priority Stat Reason Evaluate & Treat W art of left hand, non-healing Diagnosis 1 Wart of hand (B07.9) [facility] Referring Provider First Name CARLOS Referring Provider Last Name SWAPNA Referring Provider Speciality Internal M edicine Referred Provider Specialty Dermatology General Notes Margi Salter 0 04/13/2025 02:27:07 PM > Referral to [facility], p. [phone], f. 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 alcohol: socially drug: denies caffeine: coffee daily 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 alcohol: socially drug: denies caffeine: coffee daily 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 alcohol: socially drug: denies caffeine: coffee daily 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 alcohol: socially drug: denies caffeine: coffee daily 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 alcohol: socially drug: denies caffeine: coffee daily 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 alcohol: socially drug: denies caffeine: coffee daily 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 alcohol: socially drug: denies caffeine: coffee daily 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 alcohol: socially drug: denies caffeine: coffee daily 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 alcohol: socially drug: denies caffeine: coffee daily 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 alcohol: socially drug: denies caffeine: coffee daily 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 alcohol: socially drug: denies caffeine: coffee daily 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 alcohol: socially drug: denies caffeine: coffee daily 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 alcohol: socially drug: denies caffeine: coffee daily 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 alcohol: socially drug: denies caffeine: coffee daily 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: socially drug: denies caffeine: coffee daily 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: socially drug: denies caffeine: coffee daily 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3) Active confirmed Problem Obesity (824128140) Other obesity (E66.8) Active confirmed Problem Mixed hyperlipidemia (343630355) Mixed hyperlipidemia (E78.2) Active confirmed Problem Shoulder joint pain (832450824) Shoulder pain, unspecified chronicity, unspecified laterality (M25.519) Active confirmed Problem Hyperlipidaemia (34678323) Hyperlipidemia, unspecified hyperlipidemia type (E78.5) Active confirmed Problem Shoulder joint pain (967330686) Right shoulder pain, unspecified chronicity (M25.511) Active confirmed Problem Acquired hypothyroidism (201933255) Acquired hypothyroidism (E03.9) Active confirmed Problem Anxiety (61729285) Anxiety (F41.9) Active confi rmed Problem Hyperlipoproteinemia (8906146) 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) Active confirmed Problem Vitamin D deficiency (75101841) Vitamin D deficiency (E55.9) Active confirmed Problem Alopecia (58748274) Hair loss (L65.9) Active co nfirmed Problem Gastroesophageal reflux disease without esophagitis (135986833) Gastroesophageal reflux disease without esophagitis (K21.9) Active confirmed Problem Obesity (572781548) Obesity (BMI 30-39.9) (E66.9) Active confirmed Problem Obese class I (255863789109665) BMI 33.0-33.9,adult (Z68.33) Active confirmed Problem BMI 30+ - obesity (556375615) BMI 32.0-32.9,adult (Z68.32) Active confirmed Problem Degeneration of thoracic intervertebral disc (48018042) Degenerative disc disease, thoracic (M51.34) Active confirmed Problem Vitamin B>12< deficiency anaemia (67027073) Anemia due to vitamin B12 deficiency, unspecified B12 deficiency type (D51.9) Active confirmed Problem Body mass index 30.0 0 to 34.99 (827156922032725) BMI 31.0-31.9,adult (Z68.31) Active confirmed Problem Body mass index 30+ - obesity (302107476) BMI 30.0-30.9,adult (Z68.30) Active confirmed Problem Tension-type headach e (458532327) Acute intractable tension-type headache (G44.201) Active confirmed Problem Gastroesophageal reflux disease (783347519) GERD (gastroesophageal reflux disease) (K21.9) Active confirmed Problem Hyperlipidemia (07493836) Hyperlipidemia (E78.5) Active confirmed Problem Episodic migraine (360214154832979) Episodic migraine (G43.909) Active confirmed Problem Hypophosphatemia (3808619) Hypophosphatemia (E83.39) Active confirmed Problem Laboratory test result abnormal (926417187) Low liver alkaline phosphatase level (R74.8) Active confirmed Problem Tendinopathy (00798858) Tendinopathy (M67.90) Active confirmed Vital Signs Heart Rate 86 /min 06/08/2025 Oximetry 95 % 06/08/2025 Blood pressure diastolic 78 mm Hg 06/08/2025 Height 69 in 06/08/2025 Blood pressure systolic 122 mm Hg 06/08/2025 Weight 219.4 lbs 06/08/2025 BMI 32.4 kg/m2 06/08/2025 Encounters Encounter Location Date Provider Diagnosis [facility] [address] [place] [address] 07/28/2024 CARLOS BARCENAS Overweight E66.3 ; B MD 29.0-29.9,adult Z68.29 ; Gastroesophageal reflux disease without esophagitis K21.9 ; Anxiety F41.9 ; Mixed hyperlipidemia E78.2 ; Pain, joint, shoulder, right M25.511 ; Episodic migraine G43.909 and Nutritional counseling Z71.3 [facility] [address] [place] [address] 09/10/2024 CARLOS BARCENAS Overweight E66.3 ; B MD 29.0-29.9,adult Z68.29 ; Anxiety F41.9 ; Mixed hyperlipidemia E78.2 ; Pain, joint, shoulder, right M25.511 ; Episodic migraine G43.909 ; Nutritional counseling Z71.3 ; Hair loss L65.9 and Hyperlipidemia, unspecified hyperlipidemia type E78.[address] [address] [address] 11/17/2024 CARLOS BARCENAS Anxiety F41.9 ; Pain , joint, shoulder, left M25.512 ; Mixed hyperlipidemia E78.2 ; Episodic migraine G43.909 ; Nutritional counseling Z71.3 ; Hair loss L65.9 ; Hyperlipidemia, unspecified hyperlipidemia type E78.5 and BMI 32.0-32.9,adult Z68.[address] [address] 12/24/2024 CARLOSMaster BARCENAS Obesity (BMI 30-39.9 ) E66.9 ; BMI 33.0-33.9,adult Z68.33 ; Pain, joint, shoulder, left M25.512 ; Anxiety F41.9 ; Mixed hyperlipidemia E78.2 ; Episodic migraine G43.909 ; Nutritional counseling Z71.3 ; Hair loss L65.9 and Encounter for examination of blood pressure without abnormal findings Z01.[address] 03/04/2025 CARLOSMaster BARCENAS Obesity (BMI 30-39.9 ) E66.9 ; BMI 33.0-33.9,adult Z68.33 ; Pain, joint, shoulder, left M25.512 ; Anxiety F41.9 ; Mixed hyperlipidemia E78.2 ; Episodic migraine G43.909 ; Nutritional counseling Z71.3 ; Hair loss L65.9 and Encounter for examination of blood pressure without abnormal findings Z01.[address] [address] 04/13/2025 CARLOSMaster BARCENAS Obesity (BMI 30-39.9 ) E66.9 ; BMI 32.0-32.9,adult Z68.32 ; Pain, joint, shoulder, left M25.512 ; Anxiety F41.9 ; Mixed hyperlipidemia E78.2 ; Episodic migraine G43.909 ; Nutritional counseling Z71.3 ; Hair loss L65.9 and Encounter for examination of blood pressure without abnormal findings Z01.[address] [address] 06/08/2025 CARLOSMaster BARCENAS Obesity (BMI 30-39.9 ) E66.9 ; BMI 32.0-32.9,adult Z68.32 ; Pain, joint, shoulder, left M25.512 ; Anxiety F41.9 ; Mixed hyperlipidemia E78.2 ; Episodic migraine G43.909 ; Nutritional counseling Z71.3 ; Hair loss L65.9 and Encounter for examination of blood pressure without abnormal findings Z01.[address] [place] [address] 07/07/2024 CARLOSMaster BARCENAS Overweight E66.3 [facility] [address] [place], [place] 07/18/2024 CARLOSMaster BARCENAS Gastroesophageal ref lux disease without esophagitis K21.9 [facility] [address] [facility] [address] [place] [address] 07/28/2024 CARLOS BARCENAS [facility] [address] [place] [address] 09/08/20[address] BARCE[address]S [facility] [address] [place], [place] 09/16/2024 CARLOS BARCENAS [facility] [address] 11/17/2024 CARLOS BARCENAS [facility] [address] [place], [place] 11/17/2024 CARLOS BARCENAS Shoulder pain, unspe cified chronicity, unspecified laterality M25.[address] [place] [address] 02/02/2025 CARLOS BARCENAS [facility] [address] [place], [place] 02/24/2025 CARLOS BARCENAS [facility] [address] [place], [place] 03/31/2025 CARLOS BARCENAS [facility] [address] [place], [place] 04/13/2025 CARLOS BARCENAS [facility] [address] [facility] [address] [place] [address] 04/17/20[address]OS BARCENAS [facility] [address] [place] [address] 04/23/2025 CARLOS BARCENAS Obesity (BMI 30-39.9 ) E66.9 [facility] [address] [place] [address] 05/04/2025 CARLOS BARCENAS [facility] [address] [place] [address] 11/14/2024 CARLOS BARCENAS [facility] [address] [place] [address] 02/02/2025 CARLOS BARCENAS [facility] [address] [place] [address] 02/02/2025 CARLOS BARCENAS [facility] [address] [place] [address] 02/02/2025 CARLOS BARCENAS [facility] [address] [place] [address] 02/02/2025 CARLOS BARCENAS [facility] [address] [place] [address] 02/02/2025 CARLOS BARCENAS [facility] [address] [place] [address] 02/02/2025 CARLOS BARCENAS [facility] [address] [place] [address] 02/02/2025 CARLOS BARCENAS Assessments Encounter Date Diagnosis [...] educated on lifestyle modifications. Patient went to [place], and then went to [place] and states that she has been traveling [...] in addition to walking as tolerated. Contacted [facility] pharmacy in [place] who states they cannot dispense Saxenda secondary to supply issues. Called [facility] specialty pharmacy, and Saxenda continues to be on backorder until unknown date. Will send to other [facility] pharmacy in [place], but patient will continue to call pharmacies [...] and red meat. Discussed fish, fish oil, Palmyra's, healthy fats. # Right shoulder pain: X [...] Dictation was accomplished with the use of Applika voice recognition software, prone to medical misidentifications [...] educated on lifestyle modifications. Patient went to [place], and then went to [place] and states that she has been traveling [...] in addition to walking as tolerated. Contacted [facility] pharmacy in [place] who states they cannot dispense Saxenda secondary to supply issues. Called [facility] specialty pharmacy, and Saxenda continues to be on backorder until unknown date. Will send to other [facility] pharmacy in [place], but patient will continue to call pharmacies [...] and red meat. Discussed fish, fish oil, Palmyra's, healthy fats. # Right shoulder pain: X [...] Dictation was accomplished with the use of App[employer]ka voice recognition software, prone to medical misidentifications [...] educated on lifestyle modifications. Patient went to [place], and then went to [place] and states that she has been traveling [...] in addition to walking as tolerated. Contacted [facility] pharmacy in [place] who states they cannot dispense Saxenda secondary to supply issues. Called [facility] pharmacy, and Saxenda continues to be on backorder until unknown date. Will send to other [facility] pharmacy in [place], but patient will continue to call pharmacies [...] Dictation was accomplished with the use of App[employer]ka voice recognition software, prone to medical misidentifications [...] educated on lifestyle modifications. Patient went to [place], and then went to [place] and states that she has been traveling [...] in addition to walking as tolerated. Contacted [facility] pharmacy in [place] who states they cannot dispense Saxenda secondary to supply issues. Called [facility] pharmacy, and Saxenda continues to be on backorder until unknown date. Will send to other [facility] pharmacy in [place], but patient will continue to call pharmacies [...] Dictation was accomplished with the use of App[employer]ka voice recognition software, prone to medical misidentifications [...] educated on lifestyle modifications. Patient went to [place], and then went to [place] and states that she has been traveling [...] in addition to walking as tolerated. Contacted [facility] pharmacy in [place] who states they cannot dispense Saxenda secondary to supply issues. Called [facility] pharmacy, and Saxenda continues to be on backorder until unknown date. Will send to other [facility] pharmacy in [place], but patient will continue to call pharmacies [...] will trial contrave first. 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 Follow up [...] Dictation was accomplished with the use of Applika voice recognition software, prone to medical misidentifications [...] educated on lifestyle modifications. Patient went to [place], and then went to [place] and states that she has been traveling [...] in addition to walking as tolerated. Contacted [facility] pharmacy in [place] who states they cannot dispense Saxenda secondary to supply issues. Called [facility], and Saxenda continues to be on backorder until unknown date. Will send to other [facility] pharmacy in [place], but patient will continue to call pharmacies [...] will trial contrave first. 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 Follow up [...] Dictation was accomplished with the use of App[employer] voice recognition software, prone to medical misidentifications [...] educated on lifestyle modifications. Patient went to [place], and then went to [place] and states that she has been traveling [...] in addition to walking as tolerated. Contacted [facility] pharmacy in [place] who states they cannot dispense Saxenda secondary to supply issues. Called [facility], and Saxenda continues to be on backorder until unknown date. Will send to other [facility] pharmacy in [place], but patient will continue to call pharmacies [...] will trial contrave first. 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 Follow up [...] Dictation was accomplished with the use of App[employer] voice recognition software, prone to medical misidentifications [...] educated on lifestyle modifications. Patient went to [place], and then went to [place] and states that she has been traveling [...] in addition to walking as tolerated. Contacted [facility] pharmacy in [place] who states they cannot dispense Saxenda secondary to supply issues. Called [facility], and Saxenda continues to be on backorder until unknown date. Will send to other [facility] pharmacy in [place], but patient will continue to call pharmacies [...] will trial contrave first. 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 Follow up [...] Dictation was accomplished with the use of [employer] voice recognition software, prone to medical misidentifications [...] educated on lifestyle modifications. Patient went to [place], and then went to [place] and states that she has been traveling [...] in addition to walking as tolerated. Contacted [facility] pharmacy in [place] who states they cannot dispense Saxenda secondary to supply issues. Called [facility], and Saxenda continues to be on backorder until unknown date. Will send to other [facility] pharmacy in [place], but patient will continue to call pharmacies [...] will trial contrave first. 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 Follow up [...] Dictation was accomplished with the use of [employer] voice recognition software, prone to medical misidentifications [...] educated on lifestyle modifications. Patient went to [place], and then went to [place] and states that she has been traveling [...] in addition to walking as tolerated. Contacted [facility] pharmacy in [place] who states they cannot dispense Saxenda secondary to supply issues. Called [facility], and Saxenda continues to be on backorder until unknown date. Will send to other [facility] pharmacy in [place], but patient will continue to call pharmacies [...] will trial contrave first. 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 Follow up [...] Wart of left hand, refer to dermatology. Igmz-elz-dxwnrbz regimen not helping # Migraines: Adequate nutrition/hydration. [...] Dictation was accomplished with the use of App[employer] voice recognition software, prone to medical misidentifications [...] educated on lifestyle modifications. Patient went to [place], and then went to [place] and states that she has been traveling [...] in addition to walking as tolerated. Contacted [facility] pharmacy in [place] who states they cannot dispense Saxenda secondary to supply issues. Called [facility], and Saxenda continues to be on backorder until unknown date. Will send to other [facility] pharmacy in [place], but patient will continue to call pharmacies [...] will trial contrave first. 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 Follow up [...] Wart of left hand, refer to dermatology. Smwb-rcy-jcwhaju regimen not helping # Migraines: Adequate nutrition/hydration. [...] Dictation was accomplished with the use of App[employer] voice recognition software, prone to medical misidentifications [...] educated on lifestyle modifications. Patient went to [place], and then went to [place] and states that she has been traveling [...] in addition to walking as tolerated. Contacted [facility] pharmacy in [place] who states they cannot dispense Saxenda secondary to supply issues. Called [facility], and Saxenda continues to be on backorder until unknown date. Will send to other [facility] pharmacy in [place], but patient will continue to call pharmacies [...] will trial contrave first. 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 Follow up [...] Wart of left hand, refer to dermatology. Hvim-elb-qahcuuc regimen not helping # Migraines: Adequate nutrition/hydration. [...] Dictation was accomplished with the use of [employer] voice recognition software, prone to medical misidentifications [...] educated on lifestyle modifications. Patient went to [place], and then went to [place] and states that she has been traveling [...] in addition to walking as tolerated. Contacted [facility] pharmacy in [place] who states they cannot dispense Saxenda secondary to supply issues. Called [facility], and Saxenda continues to be on backorder until unknown date. Will send to other [facility] pharmacy in [place], but patient will continue to call pharmacies [...] will trial contrave first. 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 Follow up [...] Wart of left hand, refer to dermatology. Zztv-hmm-jrbqffc regimen not helping # Migraines: Adequate nutrition/hydration. [...] Dictation was accomplished with the use of [employer] voice recognition software, prone to medical misidentifications [...] educated on lifestyle modifications. Patient went to [place], and then went to [place] and states that she has been traveling [...] in addition to walking as tolerated. Contacted [facility] pharmacy in [place] who states they cannot dispense Saxenda secondary to supply issues. Called [facility], and Saxenda continues to be on backorder until unknown date. Will send to other [facility] pharmacy in [place], but patient will continue to call pharmacies [...] will trial contrave first. 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 Follow up [...] Wart of left hand, refer to dermatology. Faqd-uih-ncxjwoi regimen not helping # Migraines: Adequate nutrition/hydration. [...] Dictation was accomplished with the use of [employer] voice recognition software, prone to medical misidentifications [...] educated on lifestyle modifications. Patient went to [place], and then went to [place] and states that she has been traveling [...] in addition to walking as tolerated. Contacted [facility] pharmacy in [place] who states they cannot dispense Saxenda secondary to supply issues. Called [facility], and Saxenda continues to be on backorder until unknown date. Will send to other [facility] pharmacy in [place], but patient will continue to call pharmacies [...] will trial contrave first. 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 Follow up [...] Dictation was accomplished with the use of App[employer] voice recognition software, prone to medical misidentifications [...] educated on lifestyle modifications. Patient went to [place], and then went to [place] and states that she has been traveling [...] in addition to walking as tolerated. Contacted [facility] pharmacy in [place] who states they cannot dispense Saxenda secondary to supply issues. Called [facility], and Saxenda continues to be on backorder until unknown date. Will send to other [facility] pharmacy in [place], but patient will continue to call pharmacies [...] will trial contrave first. 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 Follow up [...] Dictation was accomplished with the use of App[employer] voice recognition software, prone to medical misidentifications [...] educated on lifestyle modifications. Patient went to [place], and then went to [place] and states that she has been traveling [...] in addition to walking as tolerated. Contacted [facility] pharmacy in [place] who states they cannot dispense Saxenda secondary to supply issues. Called [facility], and Saxenda continues to be on backorder until unknown date. Will send to other [facility] pharmacy in [place], but patient will continue to call pharmacies [...] will trial contrave first. 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 Follow up [...] Dictation was accomplished with the use of App[employer] voice recognition software, prone to medical misidentifications [...] educated on lifestyle modifications. Patient went to [place], and then went to [place] and states that she has been traveling [...] in addition to walking as tolerated. Contacted [facility] pharmacy in [place] who states they cannot dispense Saxenda secondary to supply issues. Called [facility], and Saxenda continues to be on backorder until unknown date. Will send to other [facility] pharmacy in [place], but patient will continue to call pharmacies [...] Dictation was accomplished with the use of [employer] voice recognition software, prone to medical misidentifications [...] educated on lifestyle modifications. Patient went to [place], and then went to [place] and states that she has been traveling [...] in addition to walking as tolerated. Contacted [facility] pharmacy in [place] who states they cannot dispense Saxenda secondary to supply issues. Called [facility], and Saxenda continues to be on backorder until unknown date. Will send to other [facility] pharmacy in [place], but patient will continue to call pharmacies [...] and red meat. Discussed fish, fish oil, [place], healthy fats. # Right shoulder pain: X [...] Dictation was accomplished with the use of App[employer]ka voice recognition software, prone to medical misidentifications [...] educated on lifestyle modifications. Patient went to [place], and then went to [place] and states that she has been traveling [...] in addition to walking as tolerated. Contacted [facility] pharmacy in [place] who states they cannot dispense Saxenda secondary to supply issues. Called [facility], and Saxenda continues to be on backorder until unknown date. Will send to other [facility] pharmacy in [place], but patient will continue to call pharmacies [...] and red meat. Discussed fish, fish oil, [place], healthy fats. # Right shoulder pain: X [...] Dictation was accomplished with the use of App[employer] voice recognition software, prone to medical misidentifications [...] educated on lifestyle modifications. Patient went to [place], and then went to [place] and states that she has been traveling [...] in addition to walking as tolerated. Contacted [facility] pharmacy in [place] who states they cannot dispense Saxenda secondary to supply issues. Called [facility], and Saxenda continues to be on backorder until unknown date. Will send to other [facility] pharmacy in [place], but patient will continue to call pharmacies [...] Dictation was accomplished with the use of App[employer] voice recognition software, prone to medical misidentifications [...] educated on lifestyle modifications. Patient went to [place], and then went to [place] and states that she has been traveling [...] in addition to walking as tolerated. Contacted [facility] pharmacy in [place] who states they cannot dispense Saxenda secondary to supply issues. Called [facility], and Saxenda continues to be on backorder until unknown date. Will send to other [facility] pharmacy in [place], but patient will continue to call pharmacies [...] will trial contrave first. 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 Follow up [...] Dictation was accomplished with the use of App[employer] voice recognition software, prone to medical misidentifications [...] educated on lifestyle modifications. Patient went to [place], and then went to [place] and states that she has been traveling [...] in addition to walking as tolerated. Contacted [facility] pharmacy in [place] who states they cannot dispense Saxenda secondary to supply issues. Called [facility], and Saxenda continues to be on backorder until unknown date. Will send to other [facility] pharmacy in [place], but patient will continue to call pharmacies [...] will trial contrave first. 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 Follow up [...] Dictation was accomplished with the use of App[employer] voice recognition software, prone to medical misidentifications [...] educated on lifestyle modifications. Patient went to [place], and then went to [place] and states that she has been traveling [...] in addition to walking as tolerated. Contacted [facility] pharmacy in [place] who states they cannot dispense Saxenda secondary to supply issues. Called [facility], and Saxenda continues to be on backorder until unknown date. Will send to other [facility] pharmacy in [place], but patient will continue to call pharmacies [...] will trial contrave first. 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 Follow up [...] recieved Vitamin B12 in office.Patient taking NutrAFUL [facility] improvment. Consider dermatology referral. No further workup [...] Dictation was accomplished with the use of App[employer] voice recognition software, prone to medical misidentifications [...] educated on lifestyle modifications. Patient went to [place], and then went to [place] and states that she has been traveling [...] in addition to walking as tolerated. Contacted [facility] pharmacy in [place] who states they cannot dispense Saxenda secondary to supply issues. Called [facility], and Saxenda continues to be on backorder until unknown date. Will send to other [facility] pharmacy in [place], but patient will continue to call pharmacies [...] will trial contrave first. 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 Follow up [...] Wart of left hand, refer to dermatology. Beqc-wre-efgfvla regimen not helping # Migraines: Adequate nutrition/hydration. [...] Dictation was accomplished with the use of App[employer] voice recognition software, prone to medical misidentifications [...] educated on lifestyle modifications. Patient went to [place], and then went to [place] and states that she has been traveling [...] in addition to walking as tolerated. Contacted [facility] pharmacy in [place] who states they cannot dispense Saxenda secondary to supply issues. Called [facility], and Saxenda continues to be on backorder until unknown date. Will send to other [facility] pharmacy in [place], but patient will continue to call pharmacies [...] will trial contrave first. 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 Follow up [...] Wart of left hand, refer to dermatology. Uqgo-umn-evupzrj regimen not helping # Migraines: Adequate nutrition/hydration. [...] Dictation was accomplished with the use of App[employer] voice recognition software, prone to medical misidentifications [...] educated on lifestyle modifications. Patient went to [place], and then went to [place] and states that she has been traveling [...] in addition to walking as tolerated. Contacted [facility] pharmacy in [place] who states they cannot dispense Saxenda secondary to supply issues. Called [facility], and Saxenda continues to be on backorder until unknown date. Will send to other [facility] pharmacy in [place], but patient will continue to call pharmacies [...] will trial contrave first. 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 Follow up [...] Wart of left hand, refer to dermatology. Nspf-shl-qkflnbe regimen not helping # Migraines: Adequate nutrition/hydration. [...] Dictation was accomplished with the use of [employer] voice recognition software, prone to medical misidentifications [...] educated on lifestyle modifications. Patient went to [place], and then went to [place] and states that she has been traveling [...] in addition to walking as tolerated. Contacted [facility] pharmacy in [place] who states they cannot dispense Saxenda secondary to supply issues. Called [facility], and Saxenda continues to be on backorder until unknown date. Will send to other [facility] pharmacy in [place], but patient will continue to call pharmacies [...] will trial contrave first. 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 Follow up [...] Wart of left hand, refer to dermatology. Clrq-lya-vxalcsv regimen not helping # Migraines: Adequate nutrition/hydration. [...] Dictation was accomplished with the use of [employer] voice recognition software, prone to medical misidentifications [...] educated on lifestyle modifications. Patient went to [place], and then went to [place] and states that she has been traveling [...] in addition to walking as tolerated. Contacted [facility] pharmacy in [place] who states they cannot dispense Saxenda secondary to supply issues. Called [facility], and Saxenda continues to be on backorder until unknown date. Will send to other [facility] pharmacy in [place], but patient will continue to call pharmacies [...] will trial contrave first. 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 Follow up [...] Dictation was accomplished with the use of [employer] voice recognition software, prone to medical misidentifications [...] educated on lifestyle modifications. Patient went to [place], and then went to [place] and states that she has been traveling [...] in addition to walking as tolerated. Contacted [facility] pharmacy in [place] who states they cannot dispense Saxenda secondary to supply issues. Called [facility], and Saxenda continues to be on backorder until unknown date. Will send to other [facility] pharmacy in [place], but patient will continue to call pharmacies [...] will trial contrave first. 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 Follow up [...] Dictation was accomplished with the use of [employer] voice recognition software, prone to medical misidentifications [...] educated on lifestyle modifications. Patient went to [place], and then went to [place] and states that she has been traveling [...] in addition to walking as tolerated. Contacted [facility] pharmacy in [place] who states they cannot dispense Saxenda secondary to supply issues. Called [facility], and Saxenda continues to be on backorder until unknown date. Will send to other [facility] pharmacy in [place], but patient will continue to call pharmacies [...] will trial contrave first. 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 Follow up in 4-6 weeks # Hair loss: CBC, iron, TIBC, ferritin, ABHAY, CRP, estrogen, progesterone, testosterone, DHEA, TSH, T3, T4, were WNL, vitamin D was low, pt reports that she is taking vitamin D supplementation, vitamin B12 was low, pt recieved Vitamin B12 in office.Patient taking NutrAFUL [facility] improvment. Consider dermatology referral. # Migraines: Adequate [...] Dictation was accomplished with the use of [employer] voice recognition software, prone to medical misidentifications [...] educated on lifestyle modifications. Patient went to [place], and then went to [place] and states that she has been traveling [...] in addition to walking as tolerated. Contacted [facility] pharmacy in [place] who states they cannot dispense Saxenda secondary to supply issues. Called [facility], and Saxenda continues to be on backorder until unknown date. Will send to other [facility] pharmacy in [place], but patient will continue to call pharmacies [...] Dictation was accomplished with the use of [employer] voice recognition software, prone to medical misidentifications [...] educated on lifestyle modifications. Patient went to [place], and then went to [place] and states that she has been traveling [...] in addition to walking as tolerated. Contacted [facility] pharmacy in [place] who states they cannot dispense Saxenda secondary to supply issues. Called [facility], and Saxenda continues to be on backorder until unknown date. Will send to other [facility] pharmacy in [place], but patient will continue to call pharmacies [...] and red meat. Discussed fish, fish oil, [place], healthy fats. # Right shoulder pain: X [...] Dictation was accomplished with the use of [employer] voice recognition software, prone to medical misidentifications [...] educated on lifestyle modifications. Patient went to [place], and then went to [place] and states that she has been traveling [...] in addition to walking as tolerated. Contacted [facility] pharmacy in [place] who states they cannot dispense Saxenda secondary to supply issues. Called [facility], and Saxenda continues to be on backorder until unknown date. Will send to other [facility] pharmacy in [place], but patient will continue to call pharmacies [...] will trial contrave first. 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 Follow up [...] Dictation was accomplished with the use of Applika voice recognition software, prone to medical misidentifications [...] educated on lifestyle modifications. Patient went to [place], and then went to [place] and states that she has been traveling [...] in addition to walking as tolerated. Contacted [facility] pharmacy in [place] who states they cannot dispense Saxenda secondary to supply issues. Called [facility], and Saxenda continues to be on backorder until unknown date. Will send to other [facility] pharmacy in [place], but patient will continue to call pharmacies [...] and red meat. Discussed fish, fish oil, Palmyra's, healthy fats. # Right shoulder pain: X [...] Dictation was accomplished with the use of Applika voice recognition software, prone to medical misidentifications [...] educated on lifestyle modifications. Patient went to [place], and then went to [place] and states that she has been traveling [...] in addition to walking as tolerated. Contacted [facility] pharmacy in [place] who states they cannot dispense Saxenda secondary to supply issues. Called [facility], and Saxenda continues to be on backorder until unknown date. Will send to other [facility] pharmacy in [place], but patient will continue to call pharmacies [...] Dictation was accomplished with the use of Applika voice recognition software, prone to medical misidentifications [...] educated on lifestyle modifications. Patient went to [place], and then went to [place] and states that she has been traveling [...] in addition to walking as tolerated. Contacted [facility] pharmacy in [place] who states they cannot dispense Saxenda secondary to supply issues. Called [facility], and Saxenda continues to be on backorder until unknown date. Will send to other [facility] pharmacy in [place], but patient will continue to call pharmacies [...] will trial contrave first. 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 Follow up [...] Dictation was accomplished with the use of App[employer]ka voice recognition software, prone to medical misidentifications [...] educated on lifestyle modifications. Patient went to [place], and then went to [place] and states that she has been traveling [...] in addition to walking as tolerated. Contacted [facility] pharmacy in [place] who states they cannot dispense Saxenda secondary to supply issues. Called [facility], and Saxenda continues to be on backorder until unknown date. Will send to other [facility] pharmacy in [place], but patient will continue to call pharmacies [...] will trial contrave first. 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 Follow up [...] Dictation was accomplished with the use of App[employer] voice recognition software, prone to medical misidentifications [...] educated on lifestyle modifications. Patient went to [place], and then went to [place] and states that she has been traveling [...] in addition to walking as tolerated. Contacted [facility] pharmacy in [place] who states they cannot dispense Saxenda secondary to supply issues. Called [facility], and Saxenda continues to be on backorder until unknown date. Will send to other [facility] pharmacy in [place], but patient will continue to call pharmacies [...] will trial contrave first. 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 Follow up [...] Will order autoimmune panel. Patient taking NutrAFUL [facility] improvment. Consider dermatology referral. No further workup needed at this time.Is aware GLP-1's and weight loss can promote normal hair loss. # Wart of left hand, refer to dermatology. Euus-qhj-atylspp regimen not helping # Migraines: Adequate nutrition/hydration. [...] Dictation was accomplished with the use of App[employer]ka voice recognition software, prone to medical misidentifications [...] educated on lifestyle modifications. Patient went to [place], and then went to [place] and states that she has been traveling [...] in addition to walking as tolerated. Contacted [facility] pharmacy in [place] who states they cannot dispense Saxenda secondary to supply issues. Called [facility], and Saxenda continues to be on backorder until unknown date. Will send to other [facility] pharmacy in [place], but patient will continue to call pharmacies [...] will trial contrave first. 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 Follow up [...] Wart of left hand, refer to dermatology. Fhrb-sjx-fqqjtyr regimen not helping # Migraines: Adequate nutrition/hydration. [...] Dictation was accomplished with the use of App[employer]ka voice recognition software, prone to medical misidentifications [...] educated on lifestyle modifications. Patient went to [place], and then went to [place] and states that she has been traveling [...] in addition to walking as tolerated. Contacted [facility] pharmacy in [place] who states they cannot dispense Saxenda secondary to supply issues. Called [facility], and Saxenda continues to be on backorder until unknown date. Will send to other [facility] pharmacy in [place], but patient will continue to call pharmacies [...] will trial contrave first. 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 Follow up [...] Wart of left hand, refer to dermatology. Whnx-ykd-arzctwe regimen not helping # Migraines: Adequate nutrition/hydration. [...] Dictation was accomplished with the use of App[employer] voice recognition software, prone to medical misidentifications [...] educated on lifestyle modifications. Patient went to [place], and then went to [place] and states that she has been traveling [...] in addition to walking as tolerated. Contacted [facility] pharmacy in [place] who states they cannot dispense Saxenda secondary to supply issues. Called [facility], and Saxenda continues to be on backorder until unknown date. Will send to other [facility] pharmacy in [place], but patient will continue to call pharmacies [...] will trial contrave first. 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 Follow up [...] Wart of left hand, refer to dermatology. Qrbx-msb-leflmpm regimen not helping # Migraines: Adequate nutrition/hydration. [...] Dictation was accomplished with the use of App[employer] voice recognition software, prone to medical misidentifications [...] educated on lifestyle modifications. Patient went to [place], and then went to [place] and states that she has been traveling [...] in addition to walking as tolerated. Contacted [facility] pharmacy in [place] who states they cannot dispense Saxenda secondary to supply issues. Called [facility], and Saxenda continues to be on backorder until unknown date. Will send to other [facility] pharmacy in [place], but patient will continue to call pharmacies [...] will trial contrave first. 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 Follow up [...] Dictation was accomplished with the use of [employer] voice recognition software, prone to medical misidentifications [...] educated on lifestyle modifications. Patient went to [place], and then went to [place] and states that she has been traveling [...] in addition to walking as tolerated. Contacted [facility] pharmacy in [place] who states they cannot dispense Saxenda secondary to supply issues. Called [facility], and Saxenda continues to be on backorder until unknown date. Will send to other [facility] pharmacy in [place], but patient will continue to call pharmacies [...] will trial contrave first. 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 Follow up [...] Dictation was accomplished with the use of App[employer] voice recognition software, prone to medical misidentifications [...] educated on lifestyle modifications. Patient went to [place], and then went to [place] and states that she has been traveling [...] in addition to walking as tolerated. Contacted [facility] pharmacy in [place] who states they cannot dispense Saxenda secondary to supply issues. Called [facility], and Saxenda continues to be on backorder until unknown date. Will send to other [facility] pharmacy in [place], but patient will continue to call pharmacies [...] Dictation was accomplished with the use of App[employer] voice recognition software, prone to medical misidentifications [...] educated on lifestyle modifications. Patient went to [place], and then went to [place] and states that she has been traveling [...] in addition to walking as tolerated. Contacted [facility] pharmacy in [place] who states they cannot dispense Saxenda secondary to supply issues. Called [facility], and Saxenda continues to be on backorder until unknown date. Will send to other [facility] pharmacy in [place], but patient will continue to call pharmacies [...] will trial contrave first. 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 Follow up [...] educated on lifestyle modifications. Patient went to [place], and then went to [place] and states that she has been traveling [...] in addition to walking as tolerated. Contacted [facility] pharmacy in [place] who states they cannot dispense Saxenda secondary to supply issues. Called [facility], and Saxenda continues to be on backorder until unknown date. Will send to other [facility] pharmacy in [place], but patient will continue to call pharmacies [...] and red meat. Discussed fish, fish oil, Palmyra's, healthy fats. # Right shoulder pain: X [...] Dictation was accomplished with the use of App[employer]ka voice recognition software, prone to medical misidentifications [...] educated on lifestyle modifications. Patient went to [place], and then went to [place] and states that she has been traveling [...] in addition to walking as tolerated. Contacted [facility] pharmacy in [place] who states they cannot dispense Saxenda secondary to supply issues. Called [facility], and Saxenda continues to be on backorder until unknown date. Will send to other [facility] pharmacy in [place], but patient will continue to call pharmacies [...] will trial contrave first. 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 Follow up [...] Dictation was accomplished with the use of App[employer] voice recognition software, prone to medical misidentifications [...] educated on lifestyle modifications. Patient went to [place], and then went to [place] and states that she has been traveling [...] in addition to walking as tolerated. Contacted [facility] pharmacy in [place] who states they cannot dispense Saxenda secondary to supply issues. Called [facility], and Saxenda continues to be on backorder until unknown date. Will send to other [facility] pharmacy in [place], but patient will continue to call pharmacies [...] Dictation was accomplished with the use of Applika voice recognition software, prone to medical misidentifications [...] educated on lifestyle modifications. Patient went to [place], and then went to [place] and states that she has been traveling [...] in addition to walking as tolerated. Contacted [facility] pharmacy in [place] who states they cannot dispense Saxenda secondary to supply issues. Called [facility], and Saxenda continues to be on backorder until unknown date. Will send to other [facility] pharmacy in [place], but patient will continue to call pharmacies [...] and red meat. Discussed fish, fish oil, Palmyra's, healthy fats. # Right shoulder pain: X [...] Dictation was accomplished with the use of App[employer]ka voice recognition software, prone to medical misidentifications [...] educated on lifestyle modifications. Patient went to [place], and then went to [place] and states that she has been traveling [...] in addition to walking as tolerated. Contacted [facility] pharmacy in [place] who states they cannot dispense Saxenda secondary to supply issues. Called [facility], and Saxenda continues to be on backorder until unknown date. Will send to other [facility] pharmacy in [place], but patient will continue to call pharmacies [...] will trial contrave first. 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 Follow up [...] recieved Vitamin B12 in office.Patient taking NutrAFUL [facility] improvment. Consider dermatology referral. No further workup [...] Dictation was accomplished with the use of App[employer]ka voice recognition software, prone to medical misidentifications [...] educated on lifestyle modifications. Patient went to [place], and then went to [place] and states that she has been traveling [...] in addition to walking as tolerated. Contacted [facility] pharmacy in [place] who states they cannot dispense Saxenda secondary to supply issues. Called [facility], and Saxenda continues to be on backorder until unknown date. Will send to other [facility] pharmacy in [place], but patient will continue to call pharmacies [...] will trial contrave first. 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 Follow up [...] Dictation was accomplished with the use of App[employer]ka voice recognition software, prone to medical misidentifications [...] educated on lifestyle modifications. Patient went to [place], and then went to [place] and states that she has been traveling [...] in addition to walking as tolerated. Contacted [facility] pharmacy in [place] who states they cannot dispense Saxenda secondary to supply issues. Called [facility], and Saxenda continues to be on backorder until unknown date. Will send to other [facility] pharmacy in [place], but patient will continue to call pharmacies [...] will trial contrave first. 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 Follow up [...] Wart of left hand, refer to dermatology. Tprt-zbc-celcesq regimen not helping # Migraines: Adequate nutrition/hydration. [...] Dictation was accomplished with the use of Applika voice recognition software, prone to medical misidentifications and grammatical errors. This is unintentional and the practitioner does try to identify and correct these, but some could still be present. Please do not hesitate to contact practitioner for clarification. 06/08/2025 Nutritional counseling (ICD-10 - Z71.3) 2/28/23: Weight 211, BMI 31.16- educated extensively [...] educated on lifestyle modifications. Patient went to [place], and then went to [place] and states that she has been traveling [...] in addition to walking as tolerated. Contacted [facility] pharmacy in [place] who states they cannot dispense Saxenda secondary to supply issues. Called [facility], and Saxenda continues to be on backorder until unknown date. Will send to other [facility] pharmacy in [place], but patient will continue to call pharmacies [...] will trial contrave first. 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 Follow up [...] Wart of left hand, refer to dermatology. Wlmm-lhr-gtxmupf regimen not helping # Migraines: Adequate nutrition/hydration. [...] Dictation was accomplished with the use of App[employer]ka voice recognition software, prone to medical misidentifications [...] educated on lifestyle modifications. Patient went to [place], and then went to [place] and states that she has been traveling [...] in addition to walking as tolerated. Contacted [facility] pharmacy in [place] who states they cannot dispense Saxenda secondary to supply issues. Called [facility], and Saxenda continues to be on backorder until unknown date. Will send to other [facility] pharmacy in [place], but patient will continue to call pharmacies [...] will trial contrave first. 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 Follow up [...] Wart of left hand, refer to dermatology. Nvgn-ofq-anhqrtb regimen not helping # Migraines: Adequate nutrition/hydration. [...] Dictation was accomplished with the use of App[employer]ka voice recognition software, prone to medical misidentifications [...] educated on lifestyle modifications. Patient went to [place], and then went to [place] and states that she has been traveling [...] in addition to walking as tolerated. Contacted [facility] pharmacy in [place] who states they cannot dispense Saxenda secondary to supply issues. Called [facility], and Saxenda continues to be on backorder until unknown date. Will send to other [facility] pharmacy in [place], but patient will continue to call pharmacies [...] will trial contrave first. 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 Follow up [...] Wart of left hand, refer to dermatology. Olhq-nsi-uegudpn regimen not helping # Migraines: Adequate nutrition/hydration. [...] Dictation was accomplished with the use of App[employer]ka voice recognition software, prone to medical misidentifications [...] educated on lifestyle modifications. Patient went to [place], and then went to [place] and states that she has been traveling [...] in addition to walking as tolerated. Contacted [facility] pharmacy in [place] who states they cannot dispense Saxenda secondary to supply issues. Called [facility], and Saxenda continues to be on backorder until unknown date. Will send to other [facility] pharmacy in [place], but patient will continue to call pharmacies [...] will trial contrave first. 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 Follow up [...] Dictation was accomplished with the use of App[employer] voice recognition software, prone to medical misidentifications [...] educated on lifestyle modifications. Patient went to [place], and then went to [place] and states that she has been traveling [...] in addition to walking as tolerated. Contacted [facility] pharmacy in [place] who states they cannot dispense Saxenda secondary to supply issues. Called [facility], and Saxenda continues to be on backorder until unknown date. Will send to other [facility] pharmacy in [place], but patient will continue to call pharmacies [...] will trial contrave first. 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 Follow up [...] Dictation was accomplished with the use of App[employer]ka voice recognition software, prone to medical misidentifications [...] educated on lifestyle modifications. Patient went to [place], and then went to [place] and states that she has been traveling [...] in addition to walking as tolerated. Contacted [facility] pharmacy in [place] who states they cannot dispense Saxenda secondary to supply issues. Called [facility], and Saxenda continues to be on backorder until unknown date. Will send to other [facility] pharmacy in [place], but patient will continue to call pharmacies [...] Dictation was accomplished with the use of App[employer] voice recognition software, prone to medical misidentifications [...] educated on lifestyle modifications. Patient went to [place], and then went to [place] and states that she has been traveling [...] in addition to walking as tolerated. Contacted [facility] pharmacy in [place] who states they cannot dispense Saxenda secondary to supply issues. Called [facility], and Saxenda continues to be on backorder until unknown date. Will send to other [facility] pharmacy in [place], but patient will continue to call pharmacies [...] will trial contrave first. 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 Follow up [...] Dictation was accomplished with the use of [employer] voice recognition software, prone to medical misidentifications [...] educated on lifestyle modifications. Patient went to [place], and then went to [place] and states that she has been traveling [...] in addition to walking as tolerated. Contacted [facility] pharmacy in [place] who states they cannot dispense Saxenda secondary to supply issues. Called [facility], and Saxenda continues to be on backorder until unknown date. Will send to other [facility] pharmacy in [place], but patient will continue to call pharmacies [...] will trial contrave first. 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 Follow up [...] Wart of left hand, refer to dermatology. Tofp-dmk-irudsxa regimen not helping # Migraines: Adequate nutrition/hydration. [...] Dictation was accomplished with the use of App[employer]ka voice recognition software, prone to medical misidentifications [...] BARCENAS, 08/10/2025 03:00:00 PM, [address], [place], [address], Insurance Providers Payer Name Payer Address Payer Phone Subscriber Number Group Number Insured Name Patient Relationship to Insured Coverage Start Date Coverage End Date [facility] [address] [place] [address] [phone] [id number] Glenis Menchaca Self - patient is the insured Medications Administered Medication Instructions Date of Administration Dosage Notes MICC B12 INJECTION 10/31/2022 lot # [id number] MICC B12 INJECTION 12/05/2022 MICC B12 INJECTION 01/09/2023 lot [id number] MICC B12 INJECTION 11/17/2024 1 mL Semaglutide 04/12/2023 0.25 mg sema 0.25mg Semaglutide 04/19/2023 0.25 mg LRQ SQ Semaglutide 04/27/2023 0.25 sema 0.25mg Semaglutide 05/04/2023 lot#[id number] 0.25mg Semaglutide 05/11/2023 0.25 mg LRQ SQ Semaglutide 05/18/2023 0.5 mg LRQ SQ Semaglutide 05/24/2023 0.5 sema 0.5mg Semaglutide 05/31/2023 lot#[id number] 0.5mg Semaglutide 06/05/2023 0.5 mg LRQ SQ Semaglutide 06/07/2023 0.5 Semaglutide 06/14/2023 0.5 mg LRQ SQ Semaglutide 06/27/2023 lot#[id number] 0.5mg Semaglutide 07/05/2023 0.5 mg LRQ SQ [...]
--- OUTSIDE RECORDS SUMMARY | 2025-06-18 09:56 | XMS_ITS | Clinical Summary ---
Author Organization [facility] Address [address] [place] [address] Care Team Providers Care Business Analysis Consultant Name Role Phone Unavailable Primary Care Provider [...]
== END 2025-06-18 09:41 | disposition home or self-care (01) ==
LOC: HO.HSM 09:06
PROVIDERS: PCP Internal Medicine; Visit Provider Nurse Practitioner
DX: R51.9 Headache, unspecified (principal); G43.709 Chronic migraine without aura, not intractable, without status migrainosus
CPT/HCPCS: 99213

== ENCOUNTER 2025-07-20 08:36 | Outpatient (AMB) | payer BC, SELFPAY ==
--- NOTE | 2025-07-20 08:38 | A.OFFVIS_ITS ---
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 She told me at the time of her initial visit that headaches began at age 16 or 17 with starting on control shortly thereafter. She had no changes in her headaches for many years except for approximately 1 year ago when she was taken off of her oral control and she began having headaches more regularly. Headaches had been occurring approximately 5 days per week lasting the majority of the day. Headaches could be severe and awaken her from sleep. Her pain could be generally retro-orbital and occipital and felt as a pounding sensation. Headaches often unilateral but sometimes bilateral. Duringintense headaches, she will experience blurry vision. She denies any visual auras. Sumatriptan in the past had caused profound nausea. She was using Excedrin with some improvement in her headaches and she was using Excedrin in total 5 days per week on average. She did have a strong family history of brain aneurysm her grandmother and 5 of her grandmothers sister is at aneurysms. She also has a strong family history of thyroid disease. At the time of her initial visit, her exam was reassuring however due to her history we obtained an MRI and MRA, ESR and CRP. We discussed reduction of Excedrin to no more than 3 days per week. She opted for a trial of magnesium 400 mg daily and riboflavin 400 mg daily. We also discussed if there was no benefit from the nutraceuticals she would like to start amitriptyline 10 mg daily. Her MRI and MRA showed no obvious vascular abnormalities and she had no acute or structural brain abnormality relating to her symptoms. I did speak with her about the imaging before this visit and she had reported that her headaches were not any better with magnesium and riboflavin and therefore I did send the prescription for amitriptyline 10 mg. Her ESR and CRP were elevated. I did order an ABHAY and DSD. Her ESR and CRP performed 06/17/2025 remain elevated. ESR is 28 and CRP is 7.5. ABHAY is also positive with a speckled pattern and I did send a referral to Rheumatology. At the time of her last follow up visit she explained that while in [place] for 5 days she had no headaches. Upon returning back to [place] she had return of her headaches and left occipital area associated with nausea. She did not have any temporal tenderness. She was not having any vision changes. She tells me today that since starting on amitriptyline at last visit, she has not had any improvement in her headaches and it has caused her profound nausea. She stopped taking it a proximally on Sunday. She continues to have migraine headaches 5 days per week including severe nausea, brain fog, and at times blurry vision. She also has light and sound sensitivity. Past medication trials: Sumatripta-nausea Ibuprofen-works to reduce her headaches Excedrin-to reduce her headaches though has had medication overuse with this Prior workup: 06/08/2025: MRI and MRA of the brain essentially normal Lab workup has been significant for elevated CRP, sed rate, and positive ABHAY with speckled pattern PFSH Medical History (Updated 06/29/25 @ 12:55 by Tammy Garza CNP) HLD (hyperlipidemia) Migraine Family History (Updated 05/05/25 @ 08:34 by Doris Jarvis CMA) Mother Thyroid disease Father Thyroid disease Review of Systems Const All systems reviewed & are unremarkable except as noted in HPI and below Physical Exam Const General: cooperative, healthy appearing, comfortable and no acute distress Nutritional Appearance: well nourished Orientation/consciousness: patient oriented x3 Limitations: no limitations HEENT Head: Yes normal to inspection, Yes normocephalic and Yes other (Tenderness to the temporalis muscles bilaterally with palpation) Eyes General: appearance normal, both eyes and all related structures Visual Maguire: normal visual maguire by confrontation Alignment and Position: alignment normal Periorbital: periorbital findings normal Eyelids: Yes eyelids normal Conjunctivae: conjunctivae normal Sclerae: sclerae normal Back/Spine/Pelvis Other: Significant bilateral upper trapezius tightening. No obvious trigger points. Neuro General: patient oriented x3 and deep tendon reflexes 2+ bilaterally Cranial nerves: Yes CN's II-XII intact bilaterally and Yes Facial sensation intact/muscles of mastication intact Cognition (Neuro): normal cognition Gait exam (Neuro): Normal gait present Motor exam (neuro): 5/5 motor strength present throughout and no tremor noted Sensory Exam: double simultaneous stimulation for sensation normal Romberg Test: Negative Pupils: Normal pupillary reactivity/response: bilateral Psych Appearance: grossly normal Mental Status: mental status grossly normal Speech and movement: Normal speech and movement present and Clear speech present Affect: normal affect Attitude: cooperative Thought process: Normal thought process present Thought content: Normal thought content present Insight: Good insight present (Psych) Judgement: Good judgement present (Psych) Assessment & Plan Assessment & Plan (1) Positive ABHAY (antinuclear antibody): Code(s): R76.89 - Other specified abnormal immunological findings in serum Category: Medical (2) Chronic migraine without aura without status migrainosus, not intractable: Code(s): G43.709 - Chronic migraine without aura, not intractable, without status migrainosus Category: Medical (3) Elevated C-reactive protein (CRP): Code(s): R79.82 - Elevated C-reactive protein (CRP) Category: Medical Plan Glenis is a 44-year-old female patient with a past medical history of obesity and anxiety presenting to the clinic for a follow up evaluation. Migraine-type headaches did not respond well to amitriptyline and therefore we will re- evaluate and try her on topiramate 25 mg nightly for 2 weeks and then increasing to 50 mg nightly. In the meantime, her inflammatory markers are still elevated and her ABHAY is positive with a speckled pattern. I did already send a referral to Rheumatology however she wishes to go to the [facility] I will have them send her referral there. There may be some relationship with inflammatory disorders and migraine headaches. -start topiramate 25 mg at bedtime for 2 weeks and then increase to 50 mg at bedtime -send rheumatology referral to [facility] Medications: New topiramate Take 25mg by mouth before bed for 2 weeks and then increase to 50mg by mouth at bedtime 50 mg (2 x 25 mg) PO DAILY 60 tabs 5RF 30 days Discontinued amitriptyline Discontinued Reason: Doctor's Order 10 mg PO BEDTIME 30 days 30 tabs 5RF Coding Level of Care Code Est Pt Level 4 (65031) Diagnoses Positive ABHAY (antinuclear antibody) R76.89 Chronic migraine without aura without status migrainosus, not intractable G43.709 Elevated C-reactive protein (CRP) R79.82
[2025-07-20 08:43] VITALS: BP 128/80; PULSE 88; RESP 16; O2SAT 98; BMI 28.2
== END 2025-07-20 09:07 | disposition home or self-care (01) ==
LOC: HO.HSM 08:37
PROVIDERS: PCP Internal Medicine; Visit Provider Nurse Practitioner
DX: R76.89 Other specified abnormal immunological findings in serum (principal); G43.709 Chronic migraine without aura, not intractable, without status migrainosus; R79.82 Elevated C-reactive protein (CRP)
CPT/HCPCS: 99214